=== PATIENT | female | born 1965 | race Caucasian/White ===

== ENCOUNTER 2017-09-14 08:59 | Outpatient (RCR) | payer MEDICAID, SELFPAY ==
--- NOTE | 2017-09-14 17:38 | HP.FCE ---
HP OT Functional Capacity Eval - Reference Duration Sedentary Sedentary Light Light Light Medium Medium Medium Heavy Very Heavy Heavy Occasional (0-33% of day) Frequent (34-66% of day) Constant (67-100% of day) 10 # Negligible Negligible 15 # 8 # Negligible 20 # 10# Negli. 35 # 18 # 7 # 50 # 25 # 10 # 75 # 100 # >100 # 38 # 50 # >50 # 15 # 20 # >20 # - Patient Information Height: 5 ft 2 in Weight:: 63.796 kg Hand Dominance: R handed - Medical History Medical History Including Restrictions: Lumbar Spinal Stenosis, Carpal tunnel bilateral hands with surgery bilateral hands (Summer 2016), DM II - Diagnoses Diagnoses: Lumbar Spinal Stenosis - Symptoms Symptoms: pain, numbness/tingling L leg and lower back - Pain Pain: pain lower back 8-02/28, whole Left side 03/30, R knee 01/28 - Work History Work History: [employer] 2013, [employer] 2017 for 6 months had to quite because of blackout spells. - ADLS ADLS: Independent with all BADL's, IADL's, occassionally will have 15 yr old son assist with transitioning laundry or opening containers. Lives in mobile home with 15 yr old son and [id number], 4 steps to enter no handrails. Ambulates no device independently. Tub/shower with no AE. Standard toilet seats. Laundry in house main level. Drives and able to run errands and get groceries on her own, has to use grocery cart for support to walk around store. Sleeps in regular bed. - Physical Examination ROM: BLE WFL, B UE WFL with limited ROM L digits, able to make composite fists bilateral hands, -10 degrees extension DIP L 5th digit and -5 degrees extension L hand digits 2, 3, 4 DIP. Strength: Generalized BUE strength 3+/5, B LE 3+/5 Right Clinical Engineering Director Strength Average: 56.66 Left Clinical Engineering Director Strength Average: 43.33 Right Lateral Pinch Average: 12.00 Left Lateral Pinch Average: 12.00 Right Tripod Pinch Average: 13.33 Left Tripod Pinch Average: 10.00 Comments: Increased L back pain when completing electrician wiring strength and pinch tests 9/10. 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 Sensation: Numbness/Tingling back and L side Fine Motor: Difficulty with buttoning, Limitied ability to open a variety of containers secondary to decreased strength and increased pain in bilateral hands Balance: Recent falls at home and has to hold onto grocery cart at store. Decreased balance and righting reactions to L side, front and back when tested. Recent falls, bedroom and once in bathroom, last week and 2 weeks ago. Pt unsteady when ambulating around facility for walk test, occassionally leaning into wall or using wall for support while walking. Does not have DME at home. - Non Material Handling Activities Bending: Able to bend down to floor 2 times with increased back and bilateral leg pain. Squatting: Able to complete 5 squats in a row increased bilateral knee pain. Had to stop secondary to knees felt like they were going to give out. Kneeling: Able to kneel one time. Reaching out/up: Able to reach out to L side and R side outside base of support without loss of balance and reach up without loss of balance. Walking: Able to walk for 4 minutes than required seated rest break secondary to pain lower back and bilateral legs 01/28. Pt unsteady when ambulating around facility for walk test, occassionally leaning into wall or using wall for support while walking. Pt stated sometimes feels like her legs are just going to give out. Standing: Able to stand for 4 minutes, limited with pain in back and bilateral legs. Sitting: Able to sit without getting up or discomfot for 26 minutes at a time in beginning of evaluation, did demonstrate increased pain in back after completing lift tests and walking test, when seated pt sat in front part of chair with no back support moving her body forward and side to side with deep breaths. Pt stated she has a really hard time getting comfortable due to pain. Climbing Stairs: Able to climb 10 steps, up/down using unilateral hand rail R side. Pt states when completing steps feels like her legs are going to give out. According to questionaire pt filled out, she stated she can drive or ride in a car for 1/2hr to 1 hr before she needs to get out and stretch. Pt stated she can walk at an event or mall for 1/2 hr before having to sit down. Pt stated she can sit for 15 to 20 minutes at a time sometimes less than that. Pt stated usually stand/walk 4 to 5 hrs a day. She does not lie or recline. She stated she has a hard time sleeping because she can never get comfortable with all her pain. - Dynamic Occasional Lifting Capacity Floor Lift: 1x with 20# max Knee Lift: 1x with 20# max Waist Lift: 1x with 20# max Shoulder Lift: 1x with 15# max Overhead Lift: unable to lift 15# box over her head. Carryinx 20# carrying, stated could not do more weight. Comments: Accordining to questionaire pt filled out, pt stated she exercises regularly but sometimes is unable to depending on how she feels.
== END 2017-09-14 19:00 | disposition home or self-care (01) ==
LOC: OT 08:59
PROVIDERS: Family Provider Family Medicine; PCP Family Medicine; Visit Provider Family Medicine
DX: M48.061 Spinal stenosis, lumbar region without neurogenic claudication (principal)
CPT/HCPCS: 97165

== ENCOUNTER 2017-10-23 22:28 | Emergency (ER) | payer MEDICAID, SELFPAY ==
[2017-10-23 22:28] VITALS: BP 136/63; PULSE 100; RESP 16; TEMP 35.7; BMI 27.0
--- NOTE | 2017-10-23 22:38 | ED.DCSUM_ITS ---
- ER Visit Summary Date of Service: 10/23/17 Chief Complaint: Laceration History of Present Illness: The patient is a 52 F presents to the emergency department laceration to left fourth finger. Patient was standing on a chair trying to close the garage door. She states that she stepped off and lost her balance. She fell forward and thinks that she got her finger incised on a picture frame. She did not strike her head. She denies loss of consciousness. She denies any pain. She states she was bleeding a decent amount of the reason that she came in. She is unsure of her last tetanus shot. She takes baby aspirin but no other anticoagulants. Physical Examination: Exam is relatively unremarkable. Patient is a 3 cm U- shaped laceration on the palmar aspect of the mid phalanges of the left fourth finger. There is minimal active bleeding. Flexor superficialis and flexor profundus are intact. Two-point discrimination is preserved. Cap refill is less than 2 seconds. There is no evidence of nailbed injury. Test Results: [] Emergency Department Course and Treatment: Patient's tetanus is updated. The wound was anesthetized locally. It was irrigated. There was no evidence of tendinous involvement in a bloodless field. Patient had the laceration repaired with simple interrupted suture. Bacitracin dressing was applied. The patient was counseled on wound care and reasons to return. She will follow-up in 10 days for suture removal or return with any increasing redness or drainage. Patient is comfortable with this plan of care. Treatment Plan: [] Disposition: Discharge Impression: 1. 3 cm finger laceration left fourth with primary closure This note was generated with [email or web address] dictation software. It may contain incorrect words, spelling, and punctuation that were not noted in review of the chart prior to signing ED Disposition - Plan for ED Patient: Chief Complaint: Laceration Instructions: ED Laceration Hand Referrals: Garrett Kaplan MD [Primary Care Provider] - 10 Day for suture removal
[2017-10-23] MEDS: Diphth,Pertuss(Acell),Tet Vac 0.5 ML Vial IM (23:02)
[2017-10-23 23:22] VITALS: BP 99/65; PULSE 84; O2SAT 94
== END 2017-10-23 23:23 | disposition home or self-care (01) ==
PROVIDERS: Emergency Provider Emergency Medicine; Family Provider Family Medicine; PCP Family Medicine
DX: S61.215A Laceration without foreign body of left ring finger without damage to nail, initial encounter (principal); W26.8XXA Contact with other sharp object(s), not elsewhere classified, initial encounter; Y93.9 Activity, unspecified; Y92.89 Other specified places as the place of occurrence of the external cause; Y99.9 Unspecified external cause status; E11.9 Type 2 diabetes mellitus without complications; I10 Essential (primary) hypertension; E78.00 Pure hypercholesterolemia, unspecified; Z72.0 Tobacco use
CPT/HCPCS: 12002; 90715; 99284

== ENCOUNTER 2018-05-27 17:48 | Observation (INO) | payer MEDICAID, SELFPAY ==
[2018-05-27] VITALS (8 sets, daily range): BP systolic 86–106; BP diastolic 58–67; PULSE 64–73; RESP 14–20; TEMP 36.5; O2SAT 94–97; BMI 28.6; BMI 25.9
--- NOTE | 2018-05-27 17:57 | ED.RN ---
BLOOD GLUCOSE 191 IN ER
[2018-05-27 18:01] LABS: Bedside Glucose 191 mg/dL (70-110)
--- NOTE | 2018-05-27 18:11 | CT_ITS ---
STUDY: CT BRAIN WITHOUT CONTRAST REASON FOR EXAM: Female, 53 years old. Dizziness RADIATION DOSAGE (If Supplied By Facility): CTDIvol = ( 44.99 ) mGy, DLP = ( 745.49 ) mGycm TECHNIQUE: Transaxial CT imaging of the brain was performed without administration of intravenous contrast material. Individualized dose optimization techniques were used for this CT. COMPARISON: None. FINDINGS: Normal soft tissue structures. Normal calvarium. Normal size ventricles and extra-axial spaces for the patient's age. There are areas of decreased attenuation within the white matter tracts of the supratentorial brain, consistent with microvascular disease changes. There is a tiny old lacunar infarct of the right basal ganglia. Normal brainstem. Normal cerebellum. There is no intracranial hemorrhage. There are no findings of an acute ischemic infarction. There is mucosal thickening of several left ethmoidal air cells. CT/Brain/Head without Contrast IMPRESSION: Mild chronic left ethmoid sinusitis. Chronic involutional changes. Tiny old lacunar infarct of the right basal ganglia. There is no intracranial hemorrhage or evidence of acute infarct. Electronically Signed: Ben Harrell MD at 19:01 EST , Service support ,
--- NOTE | 2018-05-27 18:11 | EKG12_ITS ---
Test Reason : SYNCOPE Blood Pressure : / mmHG Vent. Rate : 061 BPM Atrial Rate : 061 BPM P-R Int : 168 ms QRS Dur : 068 ms QT Int : 442 ms P-R-T Axes : 046 069 066 degrees QTc Int : 444 ms Normal sinus rhythm ST & T wave abnormality, consider anterior ischemia Abnormal ECG Confirmed by MARLON CORREA, SHEELA ([id number]), editor school photograph LEE MEDINA ([id number]) on 05/30/2018 2:03:46 PM Referred By: SJ Confirmed By:SHEELA MASON MD
--- NOTE | 2018-05-27 18:16 | ED.VISSUMM ---
- ER Visit Summary Date of Service: 05/27/18 Chief Complaint: Unresponsive episode History of Present Illness: The patient is a 53 F presenting after unresponsive episode. Patient states that she was not feeling well. She had a sensation of head spinning. She put her head down. Family then states she became unresponsive. She did not fall or have any trauma. She denies chest pain or shortness of breath. When she regained consciousness she states she continued to have head spinning and had an episode of vomiting. She denies headache. She feels back to baseline currently. Family states that she became rigid and stopped breathing during this episode. No history of seizures. Physical Examination: Vitals are stable. Blood pressure 93/60. Patient is afebrile. Alert no acute distress. HEENT exam is unremarkable. Neck is supple. No meningismus Lungs are clear and equal bilaterally. Heart is regular rate and rhythm. Abdomen is soft nontender nondistended. Extremities are unremarkable. Skin is warm and dry. No focal neurologic deficit. NIH 0 Remainder of exam is unremarkable. Emergency Department Course and Treatment: She was given IV fluids, Zofran. CBC unremarkable. Chemistries show glucose 200, creatinine 1.55. Troponin is negative. CT head shows mild chronic left ethmoid sinusitis. Chronic involutional changes. Tiny old lacunar infarct of the right basal ganglia. There is no intracranial hemorrhage or evidence of acute infarct. Chest x-ray shows no acute process. Urinalysis shows 25-50 white blood cells, positive nitrites. Urine culture was sent. She was given Rocephin IV. Discussed with hospitalist for admission. Disposition: Admission Impression: UTI, KYREE, syncope versus seizure This note was generated with [employer] dictation software. It may contain incorrect words, spelling, and punctuation that were not noted in review of the chart prior to signing ED Disposition - Plan for ED Patient: Chief Complaint: Syncope Referrals: Garrett Kaplan MD [Primary Care Provider] -
[2018-05-27] MEDS: Ondansetron 4 MG/2 ML Vial IV (18:26)
[2018-05-27 18:40] LABS: Anion Gap 6 (5-15); BUN 16 mg/dL (7-18); BUN/Creat Ratio 10.3 RATIO (10-20); Calcium,Total 8.4 mg/dL (8.5-10.1); Chloride 102 mmol/L (98-107); Creatinine, Serum 1.55 mg/dL (0.55-1.02); EST Glomerular Filtration Rate 37 mL/min (>60); Est Glom Filt Rate - Afr Amer 45 mL/min (>60); Glucose 200 mg/dL (74-106); Potassium 3.8 mmol/L (3.5-5.1); Sodium Level 136 mmol/L (136-145)
--- NOTE | 2018-05-27 18:40 | RAD_ITS ---
STUDY: X-RAY CHEST REASON FOR EXAM: Female, 53 years old. Altered mental status TECHNIQUE: Single AP portable view of the chest. COMPARISON: Previous study of 09/29/2012 FINDINGS: rotary soil stabilizer leads are present. The lungs are clear and expanded. There is no demonstrated pleural abnormality. Normal size heart. Normal mediastinum and howard. Normal visualized pulmonary arteries. Normal visualized aortic arch and descending thoracic aorta. Normal visualized thoracic spine. Normal visualized ribs, clavicles, and shoulders. There is no demonstrated abnormality of the visualized soft tissue structures of the upper abdomen. RAD/Chest 1 View (Portable) IMPRESSION: Normal x-ray examination of the chest. Electronically Signed: Ben Harrell MD at 19:11 EST , Service support ,
[2018-05-27 18:44] LABS: Absolute Lymphocyte Count 2.08 X10^3/ul (0.83-4.51); Absolute Neutrophil Count 6.4 X10^3/uL (2.0-7.7); Basophil# 0.04 X10^3/uL; Basophil% 0.4 % (0-1); Eosinophil# 0.13 X10^3/uL; Eosinophils% 1.4 % (0-5); Hemoglobin 11.7 g/dl (12.0-15.0); Lymphocyte # 2.08 X10^3/ul (4.0); Lymphocyte % 22.2 % (19-41); Mean Corp Hgb Conc 33.4 g/gl (32-36); Mean Corpuscular Hgb 29.3 pg (27.0-32.0); Mean Corpuscular Volume 87.5 fL (81-99); Mean Platelet Vol. 9.5 fl (6.2-12.0); Monocyte# 0.61 X10^3/uL; Monocyte% 6.5 % (0-10); Neutrophil # 6.43 X10^3/uL (2.7-7.7); Neutrophil % 68.8 % (47-70); Platelet Count 228 K/mm3 (150-450); RBC Distribution Width CV 13.6 % (11.6-14.6); RBC Distribution Width SD 43.4 fl (35.1-43.9); White Blood Count 9.4 K/mm3 (4.4-11.0)
[2018-05-27 18:59] LABS: POSITIVE COUNT NO; POSITIVE DIFFERENTIAL NO; POSITIVE MORPHOLOGY NO
[2018-05-27 20:01] LABS: Mucous, Urine 0 SEEN /hpf (<or=2+)
[2018-05-27 20:08] LABS: Color, Urine Yellow (Yellow); Glucose, Dipstick 50 mg/dl (Normal); Ketone-Dipstick Negative (Negative); Leukocyte Esterase-Dipstick 500 /ul (Negative); Nitrite-Dipstick Positive (Negative); Occult Blood-Urine 50 /ul (Negative); Protein-Dipstick 30 mg/dl (Negative); Urine Bilirubin Dipstick Negative (Negative); Urine Clarity Cloudy (Clear); Urine Urobilinogen Normal (Normal)
[2018-05-27] MEDS: 0.9% Normal Saline 1,000 ML 999 ML IV (20:11)
[2018-05-27 20:14] LABS: Bacteria 2+ /hpf (None Seen); Red Blood Cells-Urine 0-5 SEEN /hpf (0-5); Squamous Epithelial Cells - UA 0-5 SEEN /hpf (5-10); White Blood Cells 25-50 SEEN /hpf (0-5)
--- NOTE | 2018-05-27 20:48 | HP.PCM_ITS ---
Problem List (1) UTI (urinary tract infection) Status: Acute (2) Hypertension Status: Chronic (3) Diabetes Status: Chronic (4) Depression Status: Chronic (5) HLD (hyperlipidemia) Status: Chronic (6) Low back pain Status: Chronic (7) Anxiety Status: Chronic (8) CAD (coronary artery disease), [place] coronary artery Status: Chronic (9) Syncope Status: Acute History of Present Illness Date of Admission: 05/27/18 Chief Complaint: Syncope The patient is a 53 year old F with a PMH as below presenting after feeling dizzy at home and family states she went rigid and unresponsive, of note she does have intermittent dizziness at home and takes meclizine for it. They laid her on the floor and she recovered fairly quickly. She states that she was not shaking, did not feel tired after waking up, did not have incontinence of urine or stool during the episode. She does not have a history of seizures. She has been on her dose of 450 mg of Wellbutrin for a while now and there was no recent increase in dose. In the ER she was found to have an elevated creatinine at 1.55, as well as a urinary tract infection. She denies any feelings of burning on urination or back pain, but she does have a slight increase in frequency over the last few days. Past Medical History Past Medical History (Chronic Problems): Chronic Problems Hypertension (Chronic) Diabetes (Chronic) Depression (Chronic) HLD (hyperlipidemia) (Chronic) Low back pain (Chronic) Anxiety (Chronic) CAD (coronary artery disease), [place] coronary artery (Chronic) Allergies No Known Allergies Allergy (Verified 01/01/17 17:16) Home Medications: Ambulatory Orders Medication Instructions Recorded Meclizine HCl [Antivert] 25 mg PO TID PRN PRN 11/16/13 Aspirin E.C. [Ecotrin] 81 mg PO DAILY@0800 05/27/18 Atenolol [Tenormin (Beta Zoila)] 50 mg PO DAILY 05/27/18 Atorvastatin Calcium [Lipitor] 80 mg PO QHS 05/27/18 Baclofen [Lioresal] 10 mg PO BID 05/27/18 Fenofibrate [Tricor] 48 mg PO DAILY 05/27/18 Gabapentin [Neurontin] 400 mg PO TID 05/27/18 Glimepiride [Amaryl] 2 mg PO DAILY 05/27/18 Isosorbide Mononitrate [Imdur] 120 mg PO DAILY 05/27/18 Lisinopril [Zestril] 2.5 mg PO DAILY 05/27/18 Meloxicam 15 mg PO QHS 05/27/18 Metformin HCl [Glucophage] 1,000 mg PO BIDCM 05/27/18 Nesina 25 mg PO DAILY 05/27/18 Nitroglycerin [Nitrostat] 0.4 mg PO PRN PRN 05/27/18 buPROPion SR [Wellbutrin SR (150mg 150 mg PO QHS 05/27/18 tablets)] buPROPion SR [Wellbutrin SR (150mg 300 mg PO DAILY 05/27/18 tablets)] Surgical History: - - section, Carpal tunnel release Psychiatric History: Anxiety, Depression Lives: Spouse/ Significant Other Smoking Status: Current every day smoker Alcohol: None Drugs: None - *Family History Maternal History Items: Diabetes, Heart Disease Paternal History Items: Cancer, COPD, Renal Disease Review of Systems Constitutional: Denies: Chills, Fever, Weight Change HEENT: Denies: Head Aches, Sinus Congestion, Sinus Drainage Cardiovascular: Reports: Syncope. Denies: Chest Pain, Palpitations Respiratory: Denies: Cough, Shortness of breath at rest, Sputum production Gastrointestinal: Denies: Abdominal Pain, Nausea, Vomiting Genitourinary: Reports: Frequency. Denies: Dysuria Musculoskeletal: Denies: Joint Pain, Joint Tenderness Skin: Denies: Rash, Wounds Neurological: Denies: Numbness, Tingling, Focal weakness Psychiatric: Denies: Anxiety, Depression Hematologic/ Lymphatic: Denies: Easy Bruising, Easy Bleeding VTE Information - Inpt Only VTE Present on Admission: No Patient Problems: Active and Suspected Problems UTI (urinary tract infection) (Acute) Syncope (Acute) - Physical Exam General: Alert, Oriented x3, Cooperative, No apparent distress HEENT: Atraumatic, PERRLA, EOMI, Normocephalic Oral: Dry Mucosa Neck: Supple, No JVD Lungs: Clear to auscultation, Normal air movement, No rhonchi, No wheeze, No rales Cardiovascular: Regular rate, Regular Rhythm, Normal S1, Normal S2, No murmurs Abdomen: Soft, Non Tender, Non-Distended, No Hepato-splenomegaly Extremities: No edema, Capillary Refill Less than 3 Seconds Skin: No rashes, No breakdown Neurological: Neuro grossly intact, Sensory exam intact to light touch and pain Psych/Mental Status: Normal Affect, Appropriate Vital Signs Temp Pulse Resp BP Pulse Ox 97.7 F L 64 17 93/59 L 95 05/27/18 17:52 05/27/18 18:31 05/27/18 18:30 05/27/18 18:31 05/27/18 18:30 Oxygen Delivery Method Room Air Weight: 156 lb 8.451 oz Body Mass Index (BMI) 28.6 Finger Stick Blood Glucose 191 Laboratory Tests Past 24 Hrs 05/27/18 05/27/18 05/27/18 18:00 18:00 19:56 WBC 9.4 RBC 4.00 L Hgb 11.7 L Hct 35.0 L MCV 87.5 MCH 29.3 MCHC 33.4 RDW 13.6 RDW Differential 43.4 Plt Count 228 MPV 9.5 Immature Gran % (Auto) 0.700 Neut % (Auto) 68.8 Lymph % (Auto) 22.2 [place] % (Auto) 6.5 Eos % (Auto) 1.4 Baso % (Auto) 0.4 Absolute Neuts (auto) 6.4 Absolute Lymphs (auto) 2.08 Total Counted Not Reportable Sodium 136 Potassium 3.8 Chloride 102 Carbon Dioxide 28.0 Anion Gap 6 BUN 16 Creatinine 1.55 H Estim Creat Clear Calc 33.20 Est GFR (MDRD) Af Amer 45 L Est GFR (MDRD) Non-Af 37 L BUN/Creatinine Ratio 10.3 Glucose 200 H Calcium 8.4 L Troponin I < 0.015 Urine Color Yellow Urine Clarity Cloudy Urine pH 5.0 Ur Specific [place] 1.020 Urine Protein 30 H Urine Glucose (UA) 50 H Urine Ketones Negative Urine Occult Blood 50 H Urine Nitrite Positive H Urine Bilirubin Negative Urine Urobilinogen Normal Ur Leukocyte Esterase 500 H Urine RBC 0-5 SEEN Urine WBC 25-50 SEEN Ur Squamous Epith Cells 0-5 SEEN Urine Bacteria 2+ Urine Mucus 0 SEEN POC Glucose 05/27/18 17:56 POC Glucose 191 H Assessment/Plan All Active Problems UTI (urinary tract infection) (Acute) Syncope (Acute) 1. UTI/Syncope/KYREE - orthostatics in the ER were normal - She is slightly hypotensive but her MAPs are in the 70 - IVF@125 - Ancef 2 gm TID - Urine culture pending - There was some concern with the family about seizure and she is on a large dose of wellbutrin 2. Anxiety/Depression - stable - on wellbutrin 450 mg Daily - Will decrease her to 300 mg and Start zoloft 50 mg 3. HTN/HLD/CAD - BP is slightly hypotnesive, will hold BP meds tonight - c/w ASA, lipitor and fenofibrate 4. Back pain - ok to c/w baclofen and gabapentin - will monitor renal function 5. DM2 - stable - Hold metformin and glimepiride - Start SSI - BG 200 DVT: Heparin/SCDs Code Visit Inpatient E&M: 55672 Init Hosp L3
[2018-05-27] MEDS: Ceftriaxone 1 GM/50 ML BAG IV (21:06)
[2018-05-27 22:55] LABS: Bedside Glucose 184 mg/dL (70-110)
[2018-05-27] MEDS: 0.9% NaCl Peripheral Flush Adult/Peds IV (23:08)
[2018-05-27] MEDS: 0.9% Normal Saline 1,000 ML 125 ML IV (23:08)
[2018-05-27] MEDS: Insulin Lispro 100 UNIT/ML INSULN.PEN SQ (23:08)
[2018-05-27] MEDS: Heparin Injection (Vial) 5,000 UNIT/ML VIAL 5000 UNIT SC (23:09)
[2018-05-28] VITALS (13 sets, daily range): BP systolic 106–131; BP diastolic 69–81; PULSE 71–91; RESP 16–20; TEMP 36.6–36.8; O2SAT 95–97
[2018-05-28] MEDS: Cefazolin 2 GM in 0.9% Normal Saline 100 ML IV ×3 (06:57→22:28)
[2018-05-28] MEDS: 0.9% Normal Saline 1,000 ML 125 ML IV ×2 (06:57→18:34)
[2018-05-28] MEDS: Gabapentin 400 MG Capsule PO ×3 (06:57→22:28)
[2018-05-28 07:11] LABS: Bedside Glucose 179 mg/dL (70-110)
--- NOTE | 2018-05-28 07:14 | MRI_ITS ---
STUDY: MRI BRAIN WITHOUT CONTRAST REASON FOR EXAM: Female, 53 years old. Confusion with acute syncope and seizure TECHNIQUE: Standardized multiplanar fat and water weighted pulse sequences were obtained. COMPARISON: CT 05/27/2018 FINDINGS: Normal size of the ventricles and extra-axial spaces for the patient's age. Normal white matter tracts of the supratentorial brain. Normal bilateral basal ganglia. Normal thalami. There is no extra-axial fluid accumulation. Normal flow voids within the major intracranial circulation suggesting patency by spin echo criteria. Normal sella turcica, pituitary gland, infundibular stalk, optic chiasm and hypothalamus. Normal tectal plate and pineal gland. Normal midbrain, nghia and medulla. Normal cerebellum. Normal basal cisterns. Normal bilateral temporal bones. Normal bilateral internal auditory canals. No demonstrated orbital abnormality, within the constraints of a routine brain study. Normal visualized paranasal sinuses. Normal calvarium and skull base. Normal visualized soft tissue structures. Normal visualized upper cervical spine. MRI/Brain without Contrast IMPRESSION: No evidence of infarct or hemorrhage. Electronically Signed: Garrett Nielson MD at 10:12 EST Tel , Service support ,
[2018-05-28 07:47] LABS: Anion Gap 7 (5-15); BUN 14 mg/dL (7-18); BUN/Creat Ratio 11.1 RATIO (10-20); Calcium,Total 8.1 mg/dL (8.5-10.1); Chloride 109 mmol/L (98-107); Creatinine, Serum 1.26 mg/dL (0.55-1.02); EST Glomerular Filtration Rate 47 mL/min (>60); Est Glom Filt Rate - Afr Amer 57 mL/min (>60); Estimated Creatinine Clearance 40.84 ml/min; Glucose 175 mg/dL (74-106); Potassium 3.9 mmol/L (3.5-5.1); Sodium Level 141 mmol/L (136-145)
[2018-05-28 08:07] LABS: Magnesium 1.8 mg/dL (1.6-2.6); Thyroid Stim Hormone (TSH) 1.44 uIU/mL (0.358-3.74)
[2018-05-28] MEDS: Ipratropium/Albuterol Sulfate 3 ML AMPUL.NEB INHALATION ×3 (08:29→19:33)
[2018-05-28] MEDS: Insulin Lispro 100 UNIT/ML INSULN.PEN SQ ×4 (08:56→22:34)
[2018-05-28] MEDS: Aspirin E.C. 81 MG Tablet PO (08:58)
[2018-05-28] MEDS: Heparin Injection (Vial) 5,000 UNIT/ML VIAL 5000 UNIT SC ×2 (08:58→22:28)
[2018-05-28] MEDS: Fenofibrate 48 MG Tablet PO (08:59)
[2018-05-28] MEDS: Baclofen 10 MG Tablet PO ×2 (08:59→22:28)
[2018-05-28] MEDS: buPROPion (SR) 150 MG Tablet.SA 300 MG PO (09:00)
[2018-05-28] MEDS: Sertraline 50 MG Tablet PO (09:00)
[2018-05-28] MEDS: guaiFENesin 1,200 MG Tablet 1200 MG PO ×2 (10:21→22:28)
--- NOTE | 2018-05-28 10:35 | PCM.PROGNOTE ---
Patient Problems: Active and Suspected Problems UTI (urinary tract infection) (Acute) Syncope (Acute) Subjective: Patient seen and examined. Denies current complaints. Denies urinary symptoms, fever, chills. Denies dizziness, lightheadedness. - Physical Exam General: Alert, Oriented x3, Cooperative HEENT: Atraumatic, PERRLA, EOMI, Normocephalic Neck: Supple, No JVD, Negative Carotid Bruits Lungs: Clear to auscultation, Normal air movement Cardiovascular: Regular rate, Regular Rhythm, Normal S1, Normal S2, No murmurs Abdomen: Bowel Sounds Present, Soft, Non Tender, Non-Distended Extremities: No clubbing, No cyanosis, No edema, Capillary Refill Less than 3 Seconds Skin: No rashes, No breakdown Musculoskeletal: No Tenderness to Palpation of Joints or Extremities Neurological: Cranial nerves II-XII grossly intact, Neuro grossly intact Psych/Mental Status: Normal Affect, Appropriate Vital Signs Temp Pulse Resp BP Pulse Ox 97.9 F 71 18 106/71 97 05/28/18 10:29 05/28/18 10:29 05/28/18 10:29 05/28/18 10:29 05/28/18 10:29 Oxygen Delivery Method Room Air Weight: 141 lb 8.588 oz Body Mass Index (BMI) 25.9 Finger Stick Blood Glucose 191 Intake and Output for Last 24 Hours 05/26/18 05/27/18 05/28/18 23:59 23:59 23:59 Intake Total 1361 / 1361 Balance 1361 / 1361 Laboratory Tests Past 24 Hrs 05/27/18 05/27/18 05/27/18 18:00 18:00 19:56 WBC 9.4 RBC 4.00 L Hgb 11.7 L Hct 35.0 L MCV 87.5 MCH 29.3 MCHC 33.4 RDW 13.6 RDW Differential 43.4 Plt Count 228 MPV 9.5 Immature Gran % (Auto) 0.700 Neut % (Auto) 68.8 Lymph % (Auto) 22.2 Grand % (Auto) 6.5 Eos % (Auto) 1.4 Baso % (Auto) 0.4 Absolute Neuts (auto) 6.4 Absolute Lymphs (auto) 2.08 Total Counted Not Reportable Sodium 136 Potassium 3.8 Chloride 102 Carbon Dioxide 28.0 Anion Gap 6 BUN 16 Creatinine 1.55 H Estim Creat Clear Calc 33.20 Est GFR (MDRD) Af Amer 45 L Est GFR (MDRD) Non-Af 37 L BUN/Creatinine Ratio 10.3 Glucose 200 H Calcium 8.4 L Magnesium Troponin I < 0.015 TSH Urine Color Yellow Urine Clarity Cloudy Urine pH 5.0 Ur Specific [place] 1.020 Urine Protein 30 H Urine Glucose (UA) 50 H Urine Ketones Negative Urine Occult Blood 50 H Urine Nitrite Positive H Urine Bilirubin Negative Urine Urobilinogen Normal Ur Leukocyte Esterase 500 H Urine RBC 0-5 SEEN Urine WBC 25-50 SEEN Ur Squamous Epith Cells 0-5 SEEN Urine Bacteria 2+ Urine Mucus 0 SEEN 05/28/18 05/28/18 05:57 05:57 WBC RBC Hgb Hct MCV MCH MCHC RDW RDW Differential Plt Count MPV Immature Gran % (Auto) Neut % (Auto) Lymph % (Auto) Grand % (Auto) Eos % (Auto) Baso % (Auto) Absolute Neuts (auto) Absolute Lymphs (auto) Total Counted Sodium 141 Potassium 3.9 Chloride 109 H Carbon Dioxide 25.0 Anion Gap 7 BUN 14 Creatinine 1.26 H Estim Creat Clear Calc 40.84 Est GFR (MDRD) Af Amer 57 L Est GFR (MDRD) Non-Af 47 L BUN/Creatinine Ratio 11.1 Glucose 175 H Calcium 8.1 L Magnesium 1.8 Troponin I TSH 1.44 Urine Color Urine Clarity Urine pH Ur Specific [place] Urine Protein Urine Glucose (UA) Urine Ketones Urine Occult Blood Urine Nitrite Urine Bilirubin Urine Urobilinogen Ur Leukocyte Esterase Urine RBC Urine WBC Ur Squamous Epith Cells Urine Bacteria Urine Mucus POC Glucose 05/28/18 05/27/18 05/27/18 07:02 22:48 17:56 POC Glucose 179 H 184 H 191 H Medical Necessity - Tobacco Use Smoking Status: Current every day smoker Assessment/Plan All Active Problems UTI (urinary tract infection) (Acute) Syncope (Acute) 1. Acute UTI- UA +. Cx pending. Continue IV cefazolin. 2. Syncope vs possible seizure- Unclear etiology. MRI brain normal. EEG ordered. Neuro consulted. Obtain echo. Orthostatic vitals negative. Troponin negative. TSH within normal limits. 3. Mild upper respiratory symptoms- possible viral URI. Respiratory panel pending. 4. Chronic kidney disease stage III, KYREE ruled out-baseline creatinine 1.2-1.4. Trend BMP. 5. CAD-continue aspirin, statin, beta farida, imdur. 6. Hypertension-stable, continue home atenolol, isosorbide, lisinopril. 7. Hyperlipidemia- continue statin, fenofibrate. 8. Type 2 diabetes mellitus-home oral regimen on hold. Accu-Cheks before meals at bedtime with sliding scale insulin. Check hemoglobin A1c. 9. Anxiety/depression-home Wellbutrin decreased to 300 mg daily. Started on Zoloft 50 mg daily. 10. Chronic back pain-continue baclofen, gabapentin. DVT prophylaxis-heparin subcu. This patient was seen by MERYL Perrin under the supervision of Dr. Morales.
[2018-05-28 11:25] LABS: Bedside Glucose 188 mg/dL (70-110)
[2018-05-28 12:03] LABS: Hemoglobin A1c 7.1 % (4.2-6.3)
--- NOTE | 2018-05-28 15:53 | CM.UR ---
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 Met face to face with patient and her . Denies any needs and not anticipating any. Instructed that if they determine she did have seizure and send home on anti-seizure medication--she is not allowed to drive x 6 months. Verb understanding. Lizzeth Murphy RN, [facility].
[2018-05-28 16:21] LABS: Bedside Glucose 237 mg/dL (70-110)
[2018-05-28] MEDS: Meloxicam 15 MG Tablet PO (22:28)
[2018-05-28] MEDS: Atorvastatin Calcium 80 MG Tablet PO (22:28)
[2018-05-28 22:40] LABS: Bedside Glucose 153 mg/dL (70-110)
[2018-05-29 03:21] VITALS: PULSE 82
[2018-05-29] MEDS: 0.9% Normal Saline 1,000 ML 125 ML IV (03:57)
[2018-05-29 04:10] VITALS: BP 145/84; PULSE 82; RESP 18; TEMP 36.8; O2SAT 96
[2018-05-29] MEDS: Cefazolin 2 GM in 0.9% Normal Saline 100 ML IV (05:06)
[2018-05-29] MEDS: Gabapentin 400 MG Capsule PO (05:06)
[2018-05-29 06:27] LABS: Anion Gap 6 (5-15); BUN 11 mg/dL (7-18); Calcium,Total 8.2 mg/dL (8.5-10.1); Chloride 112 mmol/L (98-107); EST Glomerular Filtration Rate 62 mL/min (>60); Est Glom Filt Rate - Afr Amer 75 mL/min (>60); Estimated Creatinine Clearance 51.46 ml/min; Glucose 114 mg/dL (74-106); Potassium 3.9 mmol/L (3.5-5.1); Sodium Level 143 mmol/L (136-145)
[2018-05-29 06:51] LABS: Bedside Glucose 131 mg/dL (70-110)
[2018-05-29 06:59] VITALS: PULSE 81
[2018-05-29 07:15] VITALS: PULSE 82; RESP 16
[2018-05-29] MEDS: Ipratropium/Albuterol Sulfate 3 ML AMPUL.NEB INHALATION (07:15)
--- NOTE | 2018-05-29 08:45 | PCM.CONS.GEN ---
Reason for Consult Date of Consultation: 05/29/18 Reason for Consultation: syncope v sz History of Present Illness: 53 yo right handed white female presented after a spell described as light headed upon standing, lost consciousness, stiffned and vomited, no shaking, no tongue biting or incontinence, now normal. now diagnosed with uti. 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 had been on wellbutrin 450mg/d for yrs. denies cough. +tob, no etoh. per admit h&p:The patient is a 53 year old F with a PMH as below presenting after feeling dizzy at home and family states she went rigid and unresponsive, of note she does have intermittent dizziness at home and takes meclizine for it. They laid her on the floor and she recovered fairly quickly. She states that she was not shaking, did not feel tired after waking up, did not have incontinence of urine or stool during the episode. She does not have a history of seizures. She has been on her dose of 450 mg of Wellbutrin for a while now and there was no recent increase in dose. In the ER she was found to have an elevated creatinine at 1.55, as well as a urinary tract infection. She denies any feelings of burning on urination or back pain, but she does have a slight increase in frequency over the last few days. Past Medical History Past Medical History (Chronic Problems): Chronic Problems Hypertension (Chronic) Diabetes (Chronic) Depression (Chronic) HLD (hyperlipidemia) (Chronic) Low back pain (Chronic) Anxiety (Chronic) CAD (coronary artery disease), [place] coronary artery (Chronic) Allergies bee venom protein (honey bee) Allergy (Mild, Verified 05/27/18 22:34) Swelling Home Medications: Ambulatory Orders Medication Instructions Recorded Meclizine HCl [Antivert] 25 mg PO TID PRN PRN 11/16/13 Aspirin E.C. [Ecotrin] 81 mg PO DAILY@0800 05/27/18 Atenolol [Tenormin (beta zoila)] 50 mg PO DAILY 05/27/18 Atorvastatin Calcium [Lipitor] 80 mg PO QHS 05/27/18 Baclofen [Lioresal] 10 mg PO BID 05/27/18 Fenofibrate [Tricor] 48 mg PO DAILY 05/27/18 Gabapentin [Neurontin] 400 mg PO TID 05/27/18 Glimepiride [Amaryl] 2 mg PO DAILY 05/27/18 Isosorbide Mononitrate [Imdur] 120 mg PO DAILY 05/27/18 Lisinopril [Zestril] 2.5 mg PO DAILY 05/27/18 Meloxicam 15 mg PO QHS 05/27/18 Metformin HCl [Glucophage] 1,000 mg PO BIDCM 05/27/18 Nesina 25 mg PO DAILY 05/27/18 Nitroglycerin [Nitrostat] 0.4 mg PO PRN PRN 05/27/18 buPROPion SR [Wellbutrin SR (150mg 300 mg PO DAILY 05/27/18 tablets)] Cephalexin [Keflex] 500 mg PO Q6 #20 cap 05/29/18 Sertraline HCl [Zoloft] 50 mg PO DAILY #30 tab 05/29/18 Surgical History: - - section, Carpal tunnel release Psychiatric History: Anxiety, Depression Lives: Spouse/ Significant Other Smoking Status: Current every day smoker Alcohol: None Drugs: None - *Family History Maternal History Items: Diabetes, Heart Disease Paternal History Items: Cancer, COPD, Renal Disease Review of Systems Constitutional: Denies: Chills, Fever, Night Sweats Eyes: Denies: Blurred vision, Double vision HEENT: Denies: Difficulty Hearing, Difficulty Swallowing, Hard of Hearing, Head Aches Cardiovascular: Reports: Syncope. Denies: Chest Pain Respiratory: Denies: Cough, Shortness of Breath Gastrointestinal: Reports: Vomiting. Denies: Abdominal Pain, Constipation, Diarrhea, Dyspepsia, Nausea Genitourinary: Denies: Dysuria Musculoskeletal: Denies: Joint Pain Neurological: Denies: Balance problems, Blurred vision, Double vision, Change in Speech, Slurred speech, Confusion, Difficulty swallowing, Focal weakness, Headaches, Incoordination, Numbness, Tingling, Tremor, Seizures Psychiatric: Reports: Anxiety, Depression - Physical Exam General: Alert, Oriented x3, Cooperative, No apparent distress HEENT: Atraumatic, PERRLA, EOMI, Normocephalic Cardiovascular: Regular rate Neurological: Cranial nerves II-XII grossly intact, Deep Tendon Reflexes 2+/4 and Symmetrical, Neuro grossly intact, Motor Exam 5/5 strength throughout, Muscle tone normal, Sensory exam intact to light touch and pain, Coordination normal Psych/Mental Status: Normal Affect, Alert and oriented to time, place, person, mood and affect Vital Signs Temp Pulse Resp BP Pulse Ox 36.8 C 82 16 145/84 H 96 05/29/18 04:10 05/29/18 07:15 05/29/18 07:15 05/29/18 04:10 05/29/18 04:10 Oxygen Delivery Method Room Air Weight: 64.2 kg Body Mass Index (BMI) 25.9 Finger Stick Blood Glucose 191 Intake and Output for Last 24 Hours 05/27/18 05/28/18 05/29/18 23:59 23:59 23:59 Intake Total 4026 / 4026 1322 / 1322 Balance 4026 / 4026 1322 / 1322 Microbiology Past 72 Hours 05/27/18 19:56 Urine Culture - Final Urine, Clean Catch Presumptive E. coli 05/28/18 08:25 Respiratory Panel (PCR) - Final Mucosa - Nasopharyngeal Laboratory Tests Past 24 Hrs 05/27/18 05/29/18 Unknown 05:40 Sodium 143 Potassium 3.9 Chloride 112 H Carbon Dioxide 25.0 Anion Gap 6 BUN 11 Creatinine 1.00 Estim Creat Clear Calc 51.46 Est GFR (MDRD) Af Amer 75 Est GFR (MDRD) Non-Af 62 BUN/Creatinine Ratio 11.0 Glucose 114 H Hemoglobin A1c 7.1 H Calcium 8.2 L POC Glucose 05/29/18 05/28/18 05/28/18 06:45 22:33 16:12 POC Glucose 131 H 153 H 237 H 05/28/18 11:18 POC Glucose 188 H MRI reviewed, normal Current Home Med List Medication Instructions Recorded Confirmed Type Meclizine HCl [Antivert] 25 mg PO TID PRN PRN 11/16/13 05/27/18 History Aspirin E.C. [Ecotrin] 81 mg PO DAILY@0800 05/27/18 05/27/18 History Atenolol [Tenormin (Beta Zoila)] 50 mg PO DAILY 05/27/18 05/27/18 History Atorvastatin Calcium [Lipitor] 80 mg PO QHS 05/27/18 05/27/18 History Baclofen [Lioresal] 10 mg PO BID 05/27/18 05/27/18 History Fenofibrate [Tricor] 48 mg PO DAILY 05/27/18 05/27/18 History Gabapentin [Neurontin] 400 mg PO TID 05/27/18 05/27/18 History Glimepiride [Amaryl] 2 mg PO DAILY 05/27/18 05/27/18 History Isosorbide Mononitrate [Imdur] 120 mg PO DAILY 05/27/18 05/27/18 History Lisinopril [Zestril] 2.5 mg PO DAILY 05/27/18 05/27/18 History Meloxicam 15 mg PO QHS 05/27/18 05/27/18 History Metformin HCl [Glucophage] 1,000 mg PO BIDCM 05/27/18 05/27/18 History Nesina 25 mg PO DAILY 05/27/18 05/27/18 History Nitroglycerin [Nitrostat] 0.4 mg PO PRN PRN 05/27/18 05/27/18 History buPROPion SR [Wellbutrin SR (150mg 150 mg PO QHS 05/27/18 05/27/18 History tablets)] buPROPion SR [Wellbutrin SR (150mg 300 mg PO DAILY 05/27/18 05/27/18 History tablets)] Current Medications Generic Name Dose Route Start Last Admin Trade Name Freq PRN Reason Stop Dose Admin Albuterol Sulfate 2.5 mg 05/28/18 08:08 Ventolin Aerosols INHALATION Q2H PRN PRN dyspnea, wheezing Albuterol/Ipratropium 3 ml 05/28/18 08:15 05/29/18 07:15 Duoneb INHALATION 3 ml Q6HWA.RT ALBAN Administration Aspirin 81 mg 05/28/18 08:00 05/28/18 08:58 Ecotrin PO 81 mg DAILY@0800 ALBAN Administration Atenolol 50 mg 05/29/18 10:00 Tenormin (Beta Zoila) PO DAILY ALBAN Atorvastatin Calcium 80 mg 05/28/18 22:00 05/28/18 22:28 Lipitor PO 80 mg QHS ALBAN Administration Baclofen 10 mg 05/28/18 10:00 05/28/18 22:28 Lioresal PO 10 mg BID ALBAN Administration Bupropion HCl 300 mg 05/28/18 10:00 05/28/18 09:00 Wellbutrin Sr (150mg Tablets) PO 300 mg DAILY ALBAN Administration Dextrose 0 gm 05/27/18 22:26 D50w Syringe IV X1 PRN Hypoglycemia Protocol Fenofibrate 48 mg 05/28/18 10:00 05/28/18 08:59 Tricor PO 48 mg DAILY ALBAN Administration Gabapentin 400 mg 05/28/18 06:00 05/29/18 05:06 Neurontin PO 400 mg TID ALBAN Administration Glucagon 1 mg 05/27/18 22:26 IM .X1 PRN Hypoglycemia Guaifenesin 1,200 mg 05/28/18 10:00 05/28/18 22:28 Mucinex PO 1,200 mg BID ALBAN Administration Heparin Sodium (Porcine) 5,000 unit 05/27/18 22:26 05/28/18 22:28 Heparin Na SC 5,000 unit Q12 ALBAN Administration Sodium Chloride 1,000 mls @ 125 mls/hr 05/27/18 22:26 05/29/18 03:57 IV 125 mls/hr .Q8H AL[place]AN Administration Cefazolin Sodium 2 gm/ Sodium 110 mls @ 150 mls/hr 05/28/18 06:00 05/29/18 05:06 Chloride IV 150 mls/hr Q8 [facility]AN Administration Sodium Chloride 250 mls @ 15 mls/hr 05/27/18 22:30 IV .[id number] PRN SALINE FLUSH Insulin Human Lispro 0 unit 05/27/18 22:26 05/29/18 08:01 Humalog Kwikpen (Bkc) SQ Not Given ACHS [facility] Protocol Isosorbide Mononitrate 120 mg 05/29/18 10:00 Imdur PO DAILY ALBAN Lisinopril 2.5 mg 05/29/18 10:00 Zestril PO DAILY ALBAN Magnesium Hydroxide 30 ml 05/27/18 22:26 Milk Of Magnesia PO DAILY PRN Constipation Meclizine HCl 25 mg 05/27/18 23:39 Antivert PO TID PRN PRN DIZZINESS Meloxicam 15 mg 05/28/18 22:00 05/28/18 22:28 Mobic PO 15 mg QHS [facility]AN Administration Sertraline HCl 50 mg 05/28/18 10:00 05/28/18 09:00 Zoloft PO 50 mg DAILY [facility]AN Administration Sodium Chloride 5 - 15 ml 05/27/18 22:30 05/27/18 23:08 IV 10 ml UD PRN Administration SALINE FLUSH EEG reviewed, normal mri reviewed, normal Assessment/Plan All Active Problems UTI (urinary tract infection) (Acute) Syncope (Acute) syncope vs sz, favor syncope resolved ok to dc ok to continue wellbutrin f/u as op prn
[2018-05-29 08:50] VITALS: BP 155/83; PULSE 87; RESP 18; TEMP 36.9; O2SAT 93
[2018-05-29] MEDS: Atenolol 50 MG Tablet PO (08:52)
[2018-05-29] MEDS: Heparin Injection (Vial) 5,000 UNIT/ML VIAL 5000 UNIT SC (08:52)
[2018-05-29] MEDS: Lisinopril 2.5 MG Tablet PO (08:52)
[2018-05-29] MEDS: Baclofen 10 MG Tablet PO (08:53)
[2018-05-29] MEDS: Fenofibrate 48 MG Tablet PO (08:53)
[2018-05-29] MEDS: guaiFENesin 1,200 MG Tablet 1200 MG PO (08:53)
[2018-05-29] MEDS: Aspirin E.C. 81 MG Tablet PO (08:53)
[2018-05-29] MEDS: Sertraline 50 MG Tablet PO (08:54)
[2018-05-29] MEDS: buPROPion (SR) 150 MG Tablet.SA 300 MG PO (08:54)
--- NOTE | 2018-05-29 08:54 | EEG ---
- Electroencephalogram date of service 05/28/18 18 channel EEG performed following the international 10-20 electrode placement protocol, and utilizing HV, photic stimulation, and ECG reference leads. background activity is 10hz symmetrically which attenuates with eye opening. hyperventilation is performed for 1.5 minutes with no lateralizing or epileptiform changes and the post-hyperventilatory phase is unremarkeable. the patient experienced wakefullness and drowsiness during the recording with no lateralizing or epileptiform changes. photic stimulation generated a normal symmetric driving response in the posterior leads. impression: normal awake and asleep EEG
--- NOTE | 2018-05-29 10:05 | PCM.DC ---
- Discharge Diagnoses Current Active Problems: Current Active and Chronic Problems UTI (urinary tract infection) (Acute) Hypertension (Chronic) Diabetes (Chronic) Depression (Chronic) HLD (hyperlipidemia) (Chronic) Low back pain (Chronic) Anxiety (Chronic) CAD (coronary artery disease), [place] coronary artery (Chronic) Syncope (Acute) You will use the following diet at home:: Calorie/Carbohydrate Controlled (specify 1200, 1400, etc) Discharge Activity: Return to Normal Activity Call your doctor if you observe: Numbness or Tingling, Shortness of breath, Dizziness, Fainting spells, Chest pain Allergies/Adverse Reactions: Allergies bee venom protein (honey bee) Allergy (Mild, Verified 05/27/18 22:34) Swelling Medications to take at Discharge Meclizine HCl [Antivert] 25 mg PO TID PRN PRN 11/16/13 Aspirin E.C. [Ecotrin] 81 mg PO DAILY@0800 05/27/18 Atenolol [Tenormin (beta farida)] 50 mg PO DAILY 05/27/18 Atorvastatin Calcium [Lipitor] 80 mg PO QHS 05/27/18 Baclofen [Lioresal] 10 mg PO BID 05/27/18 Fenofibrate [Tricor] 48 mg PO DAILY 05/27/18 Gabapentin [Neurontin] 400 mg PO TID 05/27/18 Glimepiride [Amaryl] 2 mg PO DAILY 05/27/18 Isosorbide Mononitrate [Imdur] 120 mg PO DAILY 05/27/18 Lisinopril [Zestril] 2.5 mg PO DAILY 05/27/18 Meloxicam 15 mg PO QHS 05/27/18 Metformin HCl [Glucophage] 1,000 mg PO BIDCM 05/27/18 Nesina 25 mg PO DAILY 05/27/18 Nitroglycerin [Nitrostat] 0.4 mg PO PRN PRN 05/27/18 buPROPion SR [Wellbutrin SR (150mg tablets)] 300 mg PO DAILY 05/27/18 Cephalexin [Keflex] 500 mg PO Q6 #20 cap 05/29/18 Sertraline HCl [Zoloft] 50 mg PO DAILY #30 tab 05/29/18 The following prescriptions were given: Cephalexin [Keflex] 500 mg PO Q6 #20 cap Sertraline HCl [Zoloft] 50 mg PO DAILY #30 tab Primary Care Physician: Garrett Kaplan MD [Primary Care Provider] - Please follow up with your Primary Care Physician in: 1 Week Test Results: Test results from this visit will be discussed in further detail at your follow-up appointment, if applicable. Proposed Discharge Date: 05/29/18
--- NOTE | 2018-05-29 10:11 | DCINST_ITS ---
- Discharge Diagnoses Current Active Problems: Current Active and Chronic Problems UTI (urinary tract infection) (Acute) Hypertension (Chronic) Diabetes (Chronic) Depression (Chronic) HLD (hyperlipidemia) (Chronic) Low back pain (Chronic) Anxiety (Chronic) CAD (coronary artery disease), [place] coronary artery (Chronic) Syncope (Acute) You will use the following diet at home:: Calorie/Carbohydrate Controlled (specify 1200, 1400, etc) Discharge Activity: Return to Normal Activity Call your doctor if you observe: Numbness or Tingling, Shortness of breath, Dizziness, Fainting spells, Chest pain Allergies/Adverse Reactions: Allergies bee venom protein (honey bee) Allergy (Mild, Verified 05/27/18 22:34) Swelling Medications to take at Discharge Meclizine HCl [Antivert] 25 mg PO TID PRN PRN 11/16/13 Aspirin E.C. [Ecotrin] 81 mg PO DAILY@0800 05/27/18 Atenolol [Tenormin (beta farida)] 50 mg PO DAILY 05/27/18 Atorvastatin Calcium [Lipitor] 80 mg PO QHS 05/27/18 Baclofen [Lioresal] 10 mg PO BID 05/27/18 Fenofibrate [Tricor] 48 mg PO DAILY 05/27/18 Gabapentin [Neurontin] 400 mg PO TID 05/27/18 Glimepiride [Amaryl] 2 mg PO DAILY 05/27/18 Isosorbide Mononitrate [Imdur] 120 mg PO DAILY 05/27/18 Lisinopril [Zestril] 2.5 mg PO DAILY 05/27/18 Meloxicam 15 mg PO QHS 05/27/18 Metformin HCl [Glucophage] 1,000 mg PO BIDCM 05/27/18 Nesina 25 mg PO DAILY 05/27/18 Nitroglycerin [Nitrostat] 0.4 mg PO PRN PRN 05/27/18 buPROPion SR [Wellbutrin SR (150mg tablets)] 300 mg PO DAILY 05/27/18 Cephalexin [Keflex] 500 mg PO Q6 #20 cap 05/29/18 Sertraline HCl [Zoloft] 50 mg PO DAILY #30 tab 05/29/18 The following prescriptions were given: Cephalexin [Keflex] 500 mg PO Q6 #20 cap Sertraline HCl [Zoloft] 50 mg PO DAILY #30 tab Primary Care Physician: Garrett Kaplan MD [Primary Care Provider] - Please follow up with your Primary Care Physician in: 1 Week Test Results: Test results from this visit will be discussed in further detail at your follow- up appointment, if applicable. Proposed Discharge Date: 05/29/18
--- NOTE | 2018-05-29 10:12 | PCM.DC.SUM ---
Discharge Date and Diagnosis Date of Admission: 05/27/18 Date of Discharge: 05/29/18 - Primary Discharge Diagnosis Active and Suspected Problems 1. Acute E. coli UTI 2. Syncope, seizure ruled out 3. Recent URI, resolved. Respiratory panel negative. 4. Chronic kidney disease stage III, KYREE ruled out. - Secondary Discharge Diagnosis Chronic Problems Hypertension (Chronic) Diabetes (Chronic) Depression (Chronic) HLD (hyperlipidemia) (Chronic) Low back pain (Chronic) Anxiety (Chronic) CAD (coronary artery disease), [place] coronary artery (Chronic) Hospital Course and Treatment Imaging Results: Diagnostic Data Brain CT 05/27/18 18:11 IMPRESSION: Mild chronic left ethmoid sinusitis. Chronic involutional changes. Tiny old lacunar infarct of the right basal ganglia. There is no intracranial hemorrhage or evidence of acute infarct. Electronically Signed: Ben Harrell MD at 19:01 EST , Service support , Chest X-Ray 05/27/18 18:40 IMPRESSION: Normal x-ray examination of the chest. Electronically Signed: Ben Harrell MD at 19:11 EST , Service support , Brain MRI 05/28/18 07:14 IMPRESSION: No evidence of infarct or hemorrhage. Electronically Signed: Garrett Nielson MD at 10:12 EST Tel , Service support , Dr. Reyes- Neurology Operations: None Procedures: Electroencephalogram Summary of Care Provided: The patient is a 53 year old F admitted 05/27/2018 due to syncope. 1. Acute E. coli UTI- IV cefazolin during admission. Discharged on Keflex 500 mg 4 times daily for 5 days. 2. Syncope- Unclear etiology, seizure ruled out. MRI brain normal. EEG normal. Neuro consulted. Orthostatic vitals negative. Troponin negative. TSH within normal limits. Echo canceled. This may be ordered on an outpatient basis by primary care physician. 3. Recent URI- Improved. Respiratory panel negative. 4. Chronic kidney disease stage III, KYREE ruled out-baseline creatinine 1.2-1.4. Recommend referral to nephrology by primary care physician for monitoring of chronic kidney disease. 5. CAD-continue aspirin, statin, beta farida, imdur. 6. Hypertension-stable, continue home atenolol, isosorbide, lisinopril. 7. Hyperlipidemia- continue statin, fenofibrate. 8. Type 2 diabetes mellitus-home oral regimen on hold. Hemoglobin A1c 7.1%. 9. Anxiety/depression-home Wellbutrin decreased to 300 mg daily. Started on Zoloft 50 mg daily. 10. Chronic back pain-continue baclofen, gabapentin. General: Alert, Oriented x3, Cooperative HEENT: Atraumatic, PERRLA, EOMI, Normocephalic Neck: Supple, No JVD, Negative Carotid Bruits Lungs: Clear to auscultation, Normal air movement Cardiovascular: Regular rate, Regular Rhythm, Normal S1, Normal S2, No murmurs Abdomen: Bowel Sounds Present, Soft, Non Tender, Non-Distended Extremities: No clubbing, No cyanosis, No edema, Capillary Refill Less than 3 Seconds Skin: No rashes, No breakdown Musculoskeletal: No Tenderness to Palpation of Joints or Extremities Neurological: Cranial nerves II-XII grossly intact, Neuro grossly intact Psych/Mental Status: Normal Affect, Appropriate Patient seen and examined prior to discharge. Physical assessment as noted above. Patient is stable for discharge with follow up recommendations as noted above. This patient was seen by MERYL Perrin under the supervision of Dr. Morales. - Physical Exam Vital Signs Temp Pulse Resp BP Pulse Ox 98.5 F 87 18 155/83 H 93 05/29/18 08:50 05/29/18 08:50 05/29/18 08:50 05/29/18 08:50 05/29/18 08:50 Oxygen Delivery Method Room Air Weight: 141 lb 8.588 oz Body Mass Index (BMI) 25.9 Finger Stick Blood Glucose 191 Intake and Output for Last 24 Hours 05/27/18 05/28/18 05/29/18 23:59 23:59 23:59 Intake Total 4026 / 4026 1322 / 1322 Balance 4026 / 4026 1322 / 1322 Microbiology Past 72 Hours 05/27/18 19:56 Urine Culture - Final Urine, Clean Catch Presumptive E. coli 05/28/18 08:25 Respiratory Panel (PCR) - Final Mucosa - Nasopharyngeal Laboratory Tests Past 24 Hrs 05/27/18 05/29/18 Unknown 05:40 Sodium 143 Potassium 3.9 Chloride 112 H Carbon Dioxide 25.0 Anion Gap 6 BUN 11 Creatinine 1.00 Estim Creat Clear Calc 51.46 Est GFR (MDRD) Af Amer 75 Est GFR (MDRD) Non-Af 62 BUN/Creatinine Ratio 11.0 Glucose 114 H Hemoglobin A1c 7.1 H Calcium 8.2 L POC Glucose 05/29/18 05/28/18 05/28/18 06:45 22:33 16:12 POC Glucose 131 H 153 H 237 H 05/28/18 11:18 POC Glucose 188 H Discharge Diet: Carb Control Diet Discharge Activity: Return to Normal Activity Call your doctor if you observe: Numbness or Tingling, Shortness of breath, Dizziness, Fainting spells, Chest pain Home Medications: Medications to take at Discharge Meclizine HCl [Antivert] 25 mg PO TID PRN PRN 11/16/13 Aspirin E.C. [Ecotrin] 81 mg PO DAILY@0800 05/27/18 Atenolol [Tenormin (beta farida)] 50 mg PO DAILY 05/27/18 Atorvastatin Calcium [Lipitor] 80 mg PO QHS 05/27/18 Baclofen [Lioresal] 10 mg PO BID 05/27/18 Fenofibrate [Tricor] 48 mg PO DAILY 05/27/18 Gabapentin [Neurontin] 400 mg PO TID 05/27/18 Glimepiride [Amaryl] 2 mg PO DAILY 05/27/18 Isosorbide Mononitrate [Imdur] 120 mg PO DAILY 05/27/18 Lisinopril [Zestril] 2.5 mg PO DAILY 05/27/18 Meloxicam 15 mg PO QHS 05/27/18 Metformin HCl [Glucophage] 1,000 mg PO BIDCM 05/27/18 Nesina 25 mg PO DAILY 05/27/18 Nitroglycerin [Nitrostat] 0.4 mg PO PRN PRN 05/27/18 buPROPion SR [Wellbutrin SR (150mg tablets)] 300 mg PO DAILY 05/27/18 Cephalexin [Keflex] 500 mg PO Q6 #20 cap 05/29/18 Sertraline HCl [Zoloft] 50 mg PO DAILY #30 tab 05/29/18 Following Prescrptions Were Given to Patient: Cephalexin [Keflex] 500 mg PO Q6 #20 cap Sertraline HCl [Zoloft] 50 mg PO DAILY #30 tab Primary Care Physician: Garrett Kaplan MD [Primary Care Provider] - Please follow up with your Primary Care Physician in: 1 Week Disposition: Home Minutes spent on discharge:: 35 Patient Condition:: Stable Medical Necessity - Tobacco Use Smoking Status: Current every day smoker Meaningful Use Info Meaningful Use Diagnoses (Choose all that apply): None applicable
--- NOTE | 2018-05-29 10:23 | DS.PCM_ITS ---
Discharge Date and Diagnosis Date of Admission: 05/27/18 Date of Discharge: 05/29/18 - Primary Discharge Diagnosis Active and Suspected Problems 1. Acute E. coli UTI 2. Syncope, seizure ruled out 3. Recent URI, resolved. Respiratory panel negative. 4. Chronic kidney disease stage III, KYREE ruled out. - Secondary Discharge Diagnosis Chronic Problems Hypertension (Chronic) Diabetes (Chronic) Depression (Chronic) HLD (hyperlipidemia) (Chronic) Low back pain (Chronic) Anxiety (Chronic) CAD (coronary artery disease), [place] coronary artery (Chronic) Hospital Course and Treatment Imaging Results: Diagnostic Data Brain CT 05/27/18 18:11 IMPRESSION: Mild chronic left ethmoid sinusitis. Chronic involutional changes. Tiny old lacunar infarct of the right basal ganglia. There is no intracranial hemorrhage or evidence of acute infarct. Electronically Signed: Ben Harrell MD at 19:01 EST , Service support , Chest X-Ray 05/27/18 18:40 IMPRESSION: Normal x-ray examination of the chest. Electronically Signed: Ben Harrell MD at 19:11 EST , Service support , Brain MRI 05/28/18 07:14 IMPRESSION: No evidence of infarct or hemorrhage. Electronically Signed: Garrett Nielson MD at 10:12 EST Tel , Service support , Dr. Reyes- Neurology Operations: None Procedures: Electroencephalogram Summary of Care Provided: The patient is a 53 year old F admitted 05/27/2018 due to syncope. 1. Acute E. coli UTI- IV cefazolin during admission. Discharged on Keflex 500 mg 4 times daily for 5 days. 2. Syncope- Unclear etiology, seizure ruled out. MRI brain normal. EEG normal. Neuro consulted. Orthostatic vitals negative. Troponin negative. TSH within normal limits. Echo canceled. This may be ordered on an outpatient basis by primary care physician. 3. Recent URI- Improved. Respiratory panel negative. 4. Chronic kidney disease stage III, KYREE ruled out-baseline creatinine 1.2-1.4. Recommend referral to nephrology by primary care physician for monitoring of chronic kidney disease. 5. CAD-continue aspirin, statin, beta farida, imdur. 6. Hypertension-stable, continue home atenolol, isosorbide, lisinopril. 7. Hyperlipidemia- continue statin, fenofibrate. 8. Type 2 diabetes mellitus-home oral regimen on hold. Hemoglobin A1c 7.1%. 9. Anxiety/depression-home Wellbutrin decreased to 300 mg daily. Started on Zoloft 50 mg daily. 10. Chronic back pain-continue baclofen, gabapentin. General: Alert, Oriented x3, Cooperative HEENT: Atraumatic, PERRLA, EOMI, Normocephalic Neck: Supple, No JVD, Negative Carotid Bruits Lungs: Clear to auscultation, Normal air movement Cardiovascular: Regular rate, Regular Rhythm, Normal S1, Normal S2, No murmurs Abdomen: Bowel Sounds Present, Soft, Non Tender, Non-Distended Extremities: No clubbing, No cyanosis, No edema, Capillary Refill Less than 3 Seconds Skin: No rashes, No breakdown Musculoskeletal: No Tenderness to Palpation of Joints or Extremities Neurological: Cranial nerves II-XII grossly intact, Neuro grossly intact Psych/Mental Status: Normal Affect, Appropriate Patient seen and examined prior to discharge. Physical assessment as noted above. Patient is stable for discharge with follow up recommendations as noted above. This patient was seen by MERYL Perrin under the supervision of Dr. Morales. - Physical Exam Vital Signs Temp Pulse Resp BP Pulse Ox 98.5 F 87 18 155/83 H 93 05/29/18 08:50 05/29/18 08:50 05/29/18 08:50 05/29/18 08:50 05/29/18 08:50 Oxygen Delivery Method Room Air Weight: 141 lb 8.588 oz Body Mass Index (BMI) 25.9 Finger Stick Blood Glucose 191 Intake and Output for Last 24 Hours 05/27/18 05/28/18 05/29/18 23:59 23:59 23:59 Intake Total 4026 / 4026 1322 / 1322 Balance 4026 / 4026 1322 / 1322 Microbiology Past 72 Hours 05/27/18 19:56 Urine Culture - Final Urine, Clean Catch Presumptive E. coli 05/28/18 08:25 Respiratory Panel (PCR) - Final Mucosa - Nasopharyngeal Laboratory Tests Past 24 Hrs 05/27/18 05/29/18 Unknown 05:40 Sodium 143 Potassium 3.9 Chloride 112 H Carbon Dioxide 25.0 Anion Gap 6 BUN 11 Creatinine 1.00 Estim Creat Clear Calc 51.46 Est GFR (MDRD) Af Amer 75 Est GFR (MDRD) Non-Af 62 BUN/Creatinine Ratio 11.0 Glucose 114 H Hemoglobin A1c 7.1 H Calcium 8.2 L POC Glucose 05/29/18 05/28/18 05/28/18 06:45 22:33 16:12 POC Glucose 131 H 153 H 237 H 05/28/18 11:18 POC Glucose 188 H Discharge Diet: Carb Control Diet Discharge Activity: Return to Normal Activity Call your doctor if you observe: Numbness or Tingling, Shortness of breath, Dizziness, Fainting spells, Chest pain Home Medications: Medications to take at Discharge Meclizine HCl [Antivert] 25 mg PO TID PRN PRN 11/16/13 Aspirin E.C. [Ecotrin] 81 mg PO DAILY@0800 05/27/18 Atenolol [Tenormin (beta farida)] 50 mg PO DAILY 05/27/18 Atorvastatin Calcium [Lipitor] 80 mg PO QHS 05/27/18 Baclofen [Lioresal] 10 mg PO BID 05/27/18 Fenofibrate [Tricor] 48 mg PO DAILY 05/27/18 Gabapentin [Neurontin] 400 mg PO TID 05/27/18 Glimepiride [Amaryl] 2 mg PO DAILY 05/27/18 Isosorbide Mononitrate [Imdur] 120 mg PO DAILY 05/27/18 Lisinopril [Zestril] 2.5 mg PO DAILY 05/27/18 Meloxicam 15 mg PO QHS 05/27/18 Metformin HCl [Glucophage] 1,000 mg PO BIDCM 05/27/18 Nesina 25 mg PO DAILY 05/27/18 Nitroglycerin [Nitrostat] 0.4 mg PO PRN PRN 05/27/18 buPROPion SR [Wellbutrin SR (150mg tablets)] 300 mg PO DAILY 05/27/18 Cephalexin [Keflex] 500 mg PO Q6 #20 cap 05/29/18 Sertraline HCl [Zoloft] 50 mg PO DAILY #30 tab 05/29/18 Following Prescrptions Were Given to Patient: Cephalexin [Keflex] 500 mg PO Q6 #20 cap Sertraline HCl [Zoloft] 50 mg PO DAILY #30 tab Primary Care Physician: Garrett Kaplan MD [Primary Care Provider] - Please follow up with your Primary Care Physician in: 1 Week Disposition: Home Minutes spent on discharge:: 35 Patient Condition:: Stable Medical Necessity - Tobacco Use Smoking Status: Current every day smoker Meaningful Use Info Meaningful Use Diagnoses (Choose all that apply): None applicable
[2018-05-29 11:11] VITALS: PULSE 73
== END 2018-05-29 12:21 | disposition home or self-care (01) ==
LOC: ED 19:07 → PCU 22:03
PROVIDERS: Nurse Practitioner Family; Admitting Provider Family Medicine; Emergency Provider Emergency Medicine; Family Provider Family Medicine; PCP Family Medicine; Visit Provider Family Medicine
DX: N39.0 Urinary tract infection, site not specified (principal); B96.20 Unspecified Escherichia coli [E. coli] as the cause of diseases classified elsewhere; R55 Syncope and collapse; E11.22 Type 2 diabetes mellitus with diabetic chronic kidney disease; N18.3 Chronic kidney disease, stage 3 (moderate); I12.9 Hypertensive chronic kidney disease with stage 1 through stage 4 chronic kidney disease, or unspecified chronic kidney disease; Z79.899 Other long term (current) drug therapy; Z79.84 Long term (current) use of oral hypoglycemic drugs; Z79.82 Long term (current) use of aspirin; F41.9 Anxiety disorder, unspecified; F32.9 Major depressive disorder, single episode, unspecified; E78.5 Hyperlipidemia, unspecified; I25.10 Atherosclerotic heart disease of native coronary artery without angina pectoris; G89.29 Other chronic pain; N17.9 Acute kidney failure, unspecified; Z86.73 Personal history of transient ischemic attack (TIA), and cerebral infarction without residual deficits; J32.2 Chronic ethmoidal sinusitis; R42 Dizziness and giddiness; F17.200 Nicotine dependence, unspecified, uncomplicated
CPT/HCPCS: 36415; 70450; 70551; 71045; 80048; 81001; 82962; 83036; 83735; 84443; 84484; 85025; 87086; 87088; 87186; 87633; 93005; 94640; 95819; 96361; 96365; 96366; 96367; 96372; 96375; 96376; 99218; 99285; 99406; J7030; J7040; A4216; G0378; J2405

== ENCOUNTER 2021-07-07 08:43 | Outpatient (CLI) | payer MEDICAID, SELFPAY ==
--- NOTE | 2021-07-07 | FLU_PTH ---
PATIENT: ROSEANN KITCHEN LOC: [facility] U#:[id number] AGE/SX: 56/F ROOM: RE07/07/[address]: Dr. Bonifacio Scherer MD : 1965 BED: DIS: 07/07/2021 SPEC #: [id number] RECD: 07/07/21 17:31 STATUS: BAM REJoy #: [id number] SANJU: 07/07/21 00:[address]: Bonifacio Scherer DEPT: CYTOLOGY RECD BY: Sheila Chacon ENTERED: 07/08/21 10:18 SP TYPE: Fluid OTHR DR: Dr. Garrett Kaplan MD Tissues: A - Thyroid gland, NOS B - Thyroid gland, NOS Procedures: Special Stain Group II Surgery Specimen Level IV Cytospin Fluid HEADER OPERATION: Fine needle aspiration right thyroid PRE-OP DIAGNOSIS: Right thyroid nodule TISSUE SUBMITTED: A - FNA right thyroid nodule fluid, B ? FNA right thyroid slides x4 DIAGNOSIS CYTOLOGY A. Right thyroid nodule fluid, FNA (cytospin and cell block): Negative for malignant cells. See comment. B. Right thyroid nodule, FNA (smears): Nondiagnostic specimen. See comment. SJ:marci 07/09/2021 COMMENT A. The specimen is paucicellular and shows rare follicular cells, histiocytes and macrophages. B. The smears are acellular. Follicular cells are not seen. A & B. The specimens are nondiagnostic due to lack of adequate number of follicular cells. Correlation with clinical, radiologic findings and appropriate follow up are necessary. Case has been reviewed in consultation with Dr. Turner who concurs with the above diagnosis. IDC:AM CYTOLOGY STUDY Slides are reviewed. CYTOLOGY GROSS A - Received is 15 ml of yellow cloudy fluid labeled with the patient's name and and designated per the requisition as right thyroid nodule. Submitted for cytology preparation including cell block. B - Received are four smears labeled with the patient's name and designated per the requisition as right thyroid nodule. Submitted for staining. / marci 07/08/2021 TC: Cannot code CPT: 69657, 62956 x2 ADDENDUM ADDENDUM ADDENDUM ADDENDUM ADDENDUM ADDENDUM ADDENDUM ADDENDUM ADDENDUM ADDENDUM ADDENDUM ADDENDUM 12/10/2021 10:00 ADDENDUM 12/10/2021 10:00 ADDENDUM 12/10/2021 10:00 ADDENDUM 12/10/2021 10:00 ADDENDUM 12/10/2021 10:00 This addendum is added to incorporate an outside pathology consultation report. The case was examined at [facility] (#[id number]) and the following diagnosis was rendered. Right thyroid nodule, fine needle aspiration: Nondiagnostic aspirate sample. Insufficient follicular cells for diagnosis. Cyst contents. Please see complete above mentioned consultation report in EMR
== END 2021-07-07 23:59 | disposition short-term general hospital (02) ==
LOC: LABSPEC 07-08 08:43
PROVIDERS: PCP Family Medicine; Visit Provider Surgery
DX: E04.1 Nontoxic single thyroid nodule (principal)
CPT/HCPCS: 88108; 88305; 88313

== ENCOUNTER 2021-08-01 09:22 | Outpatient (CLI) | payer MEDICAID, SELFPAY ==
--- NOTE | 2021-08-01 | ASPIG_PTH ---
PATIENT: ROSEANN KITCHEN LOC: [facility]#:[id number] AGE/SX: 56/F ROOM: RE08/01/[address]: Dr. Bonifacio Scherer MD : 1965 BED: DIS: 08/01/2021 SPEC #: [id number] RECD: 08/01/21 11:28 STATUS: BAM GTZJoy #: [id number] SANJU: 08/01/21 00:[address]: Bonifacio Scherer DEPT: CYTOLOGY RECD BY: Elyssa Corey ENTERED: 08/01/21 11:30 SP TYPE: ASP OUT OTHR DR: Dr. Garrett Kaplan MD Tissues: A - Thyroid gland, NOS B - Thyroid gland, NOS Procedures: FNA Specimen Adequacy Special Stain Group II Surgery Specimen Level IV Cytology Other HEADER OPERATION: Ultrasound-guided FNA right thyroid nodule PRE-OP DIAGNOSIS: Right thyroid nodules TISSUE SUBMITTED: A - Thyroid cyst fluid, ultrasound- guided FNA, B - Thyroid nodule, ultrasound- guided FNA (smears) DIAGNOSIS CYTOLOGY A. Thyroid nodule, ultrasound-guided FNA (cytospin and cell block): Consistent with cyst contents. See comment. B. Thyroid nodule, ultrasound-guided FNA (smears and cell block): Nondiagnostic specimen. See comment. SJ:rg 08/04/2021 COMMENT The specimen is evaluated at the time of biopsy by Dr. Gomez. Immediate Evaluation: B. Predominantly blood. Rare follicular cells noted. A. The specimen predominantly consists of macrophages. Follicular cells are not identified. B. The specimen consists of rare follicular cells. The specimen is nondiagnostic due to lack of adequate number of follicular cells. Correlation with clinical, radiologic findings and appropriate follow up are necessary. Please make reference to previous specimen ([id number]) right thyroid nodule, FNA with diagnosis of ?nondiagnostic specimen.? CYTOLOGY STUDY Slides are reviewed. CYTOLOGY GROSS A - Received is 5 ml of grayish-brown turbid fluid labeled with the patient's name and and designated per the requisition as right thyroid nodule. Submitted for cytology preparation including cell block. B - Received in three passes is 0.5 ml of fluid labeled with the patient's name, and designated right thyroid. 12 imprints and 5 paps are made from the submitted fluid and the rest is added to CytoLyt for cell block preparation. Submitted for cytology study. / SJ:rg 08/01/2021 TC: Cannot code CPT: 40610 x2, 78418 x2, 46598 ADDENDUM ADDENDUM ADDENDUM ADDENDUM ADDENDUM ADDENDUM ADDENDUM ADDENDUM ADDENDUM ADDENDUM ADDENDUM ADDENDUM 12/10/2021 10:06 ADDENDUM 12/10/2021 10:06 ADDENDUM 12/10/2021 10:06 ADDENDUM 12/10/2021 10:06 ADDENDUM 12/10/2021 10:06 This addendum is added to incorporate an outside pathology consultation report. The case was examined at [facility] (#[id number]) and the following diagnosis was rendered. Right thyroid nodule, ultrasound-guided fine needle aspiration: Nondiagnostic aspirate sample. Insufficient follicular cells for diagnosis. Cyst contents. Please see complete above mentioned consultation report in EMR
--- NOTE | 2021-08-01 09:31 | US_ITS ---
STUDY: ULTRASOUND GUIDED RIGHT THYROID BIOPSY. REASON FOR EXAM: Female, 56 years old. THYROID NODULE TECHNIQUE: Under direct sonographic guidance, the surgeon performed 3 biopsies of the complex cystic nodule in the right lobe of the thyroid. COMPARISON: None. US/FNA 1st Biopsy w/ US IMPRESSION: Successful ultrasound-guided biopsy of the complex solid and cystic nodule in the right lobe of the thyroid. Electronically Signed: Rob Zepeda MD at 14:14 EST ,
--- NOTE | 2021-08-01 11:03 | NURSING ---
dressing applied, reviewed home care instuctions, pt voiced understanding of care and when to call the doctor, reviewed s/sof infection
[2021-08-01] MEDS: Lidocaine 2% (20 ml mdv) 20 ML Vial INFILT (11:07)
--- NOTE | 2021-08-01 14:09 | PCM.HP.BLA ---
History and Physical Date of Admission: 08/01/21 HISTORY AND PHYSICAL ? Annetta Viveros 1965 ? ? REFERRING PHYSICIAN: Sakshi Li APRN.C* ? CHIEF COMPLAINT: Consult (thyroid issues) ? HPI: The patient is a 56 year old female with a complaint of a right thyroid nodule. This thyroid nodule was found on Ultrasound by [facility]. The patient denies pain, notes difficulty swallowing, deniesrapid enlargement of the neck, notesdysphagia, notes occasional a change in the voice, notes hot or cold intolerence. The patient has not a prior history of neck radiation treatment. ? The patient is being seen by me today at the request of Dr. Li for my opinion and advice regarding Multinodular goiter (primary encounter diagnosis). ? PAST MEDICAL HISTORY PAST MEDICAL HISTORY Diagnosis Date ? Anxiety ? ? Coronary artery disease involving si[place] coronary artery of [place]oux heart with angina pectoris (HCC) 08/31/2016 ? Depression ? ? Diabetes mellitus (HCC) 2010 ? No nephropathy, neuropathy, retinopathy ? DJD (degenerative joint disease) of lumbar spine ? ? Hyperlipidemia 2010 ? Low back pain [id number] ? Unspecified , without mention of complication, unspecified ? ? 2 Miscarriage's ? ? PAST SURGICAL HISTORY PAST SURGICAL HISTORY Procedure Laterality Date ? DELIVERY ONLY ? ? ? , low cervical, (2) ? D&C, DIAG AND/OR THERAPEUTIC ? ? ? Dilation & curettage x 2 ? LIGATE FALLOPIAN TUBE ? 2001 ? REMOVE TONSILS/ADENOIDS,<12 Y/O ? ? ? REVISE MEDIAN N/CARPAL TUNNEL SURG Bilateral 09/18/2016 ? ? ? CURRENT MEDICATIONS Current Outpatient Medications Medication Sig Dispense Refill ? nystatin-triamcinolone (MYCOLOG II) cream Apply to affected area four times daily for 14 days. 15 g 0 ? glimepiride (AMARYL) 2 mg tablet Take 1 tablet by mouth daily with breakfast. 30 tablet 2 ? isosorbide mononitrate ER (IMDUR) 60 mg 24 hr tablet Take 2 tablets by mouth once daily. 60 tablet 2 ? gabapentin (NEURONTIN) 400 mg capsule Take 1 capsule by mouth three times daily for 90 days. 180 capsule 1 ? meclizine (ANTIVERT) 25 mg tab Take 1 tablet by mouth three times daily as needed. 30 tablet 5 ? atorvastatin (LIPITOR) 80 mg tablet Take 1 tablet by mouth once daily. 90 tablet 1 ? metFORMIN (GLUCOPHAGE) 1,000 mg tablet Take 1 tablet by mouth twice daily with meals. 180 tablet 1 ? SITagliptin (JANUVIA) 50 mg tablet Take 1 tablet by mouth once daily. 30 tablet 11 ? sertraline (ZOLOFT) 50 mg tablet Take 1 tablet by mouth once daily. 90 tablet 1 ? nitroglycerin sublingual (NITROQUICK) 0.4 mg SL tablet DISSOLVE 1 (ONE) TABLET UNDER THE TONGUE NEEDED FOR CHEST PAIN. MAY REPEAT EVERY 5 MINUTES IF NEEDED; MAX OF 3 DOSES. IF NO RELIEF, COURTNEY 1 Bottle of 25 3 ? methocarbamol (ROBAXIN-750) 750 mg tablet Take 1 tablet by mouth three times daily. 90 tablet 2 ? buPROPion SR (ZYBAN SR; WELLBUTRIN SR) 150 mg 12 hr tablet Take 1 tablet by mouth every morning and 1 tablet at dinner 270 tablet 3 ? fenofibrate nanocrystallized (TRICOR) 48 mg tablet Take 1 tablet by mouth once daily. 90 tablet 1 ? lisinopril (ZESTRIL, PRINIVIL) 5 mg tablet Take 0.5 tablets by mouth once daily. 45 tablet 3 ? meloxicam (MOBIC) 15 mg tablet Take 1 tablet by mouth once daily. 30 tablet 2 ? Blood Pressure Monitor Use as directed, Monitor and arm cuff. Dx: I25.119, N18.30, I.10 1 Kit 0 ? blood sugar diagnostic (BLOOD GLUCOSE TEST) test strip Test blood sugar(s) 1 times daily. Dx: Type 2 DM - Controlled E11.9 Insulin: No 50 Strip 11 ? aspirin, enteric coated (ASPIRIN, ENTERIC COATED) 81 mg EC tablet Take 1 tablet by mouth once daily. 90 tablet 3 ? atenolol (TENORMIN) 50 mg tablet Take 1 tablet by mouth once daily. 90 tablet 3 ? baclofen (LIORESAL) 10 mg tablet Take 1 tablet by mouth twice daily. 60 tablet 2 ? alogliptin (NESINA) 25 mg tab Take 1 tablet by mouth once daily. 90 tablet 3 ? Lancets lancets Test blood sugar(s) One time daily. Dx: Type 2 DM - Controlled E11.9 Insulin: No. Unilet Super Thin 30G Lancets 100 Each 11 ? UNILET SUPER THIN LANCETS 30 gauge [facility] USE TO TEST BLOOD SUGAR EVERY DAY 50 Each 5 ? blood sugar diagnostic (FREESTYLE LITE STRIPS) test strip 1 Strip once daily. E11.9 (Patient not taking: Reported on 07/01/2021 ) 50 Strip 5 ? No current facility-administered medications for this visit. ? ? ALLERGIES: Bees ? PERSONAL HISTORY: SOCIAL HISTORY Social History ? Tobacco Use ? Smoking status: Current Every Day Smoker ? ? Packs/day: 0.30 ? ? Years: 20.00 ? ? Pack years: 6.00 ? ? Types: Cigarettes ? Smokeless tobacco: Never Used ? Tobacco comment: TRYING TO QUIT-SMOKES 1-2 A DAY as of 11/28/15 Vaping Use ? Vaping Use: Never used Substance Use Topics ? Alcohol use: No ? ? Comment: Quit 2001 ? Drug use: No ? FAMILY HISTORY: FAMILY HISTORY FAMILY HISTORY Problem Relation Age of Onset ? Diabetes Mother ? ? Heart Mother ? ? Cataract Mother ? ? Emphysema Father ? ? Cancer Father ? ? other (Kidney Failure) Father ? ? Arthritis Paternal Aunt ? ? Arthritis Paternal Grandmother ? ? Hands ? ? REVIEW OF SYMPTOMS: The review of systems data was entered by the nurse and reviewed by me ? Nursing Notes: Priscilla Fox LPN 07/01/2021 2:17 PM Signed REVIEW OF SYSTEMS: General: The patient denies fatigue, denies weight loss, denies weight gain, denies feeling hot, and denies feelings of cold. Eyes: The patient denies glaucoma, denies eye injury/surgery, wears glasses or contacts. Ear/Nose/Throat: The patient denies allergies, denies hayfever, denies ear infections, and denies bloody noses. Cardiovascular: The patient denies chest pain, denies heart disease, denies high blood pressure,denies cardiac stent, denies prior heart attack, denies irregular heart beat, notes high cholesterol, denies poor circulation, denies heart failure, other cardiac issues, denies claudication, denies cold feet, denies peripheral arterial stent. Respiratory: The patient denies tuberculosis, denies pneumonia, denies frequent cough, denies pulmonary embolism, notes shortness of breath, and denies coughing up blood. Gastrointestinal: The patient denies difficulty swallowing, denies acid reflux, denies ulcers, denies vomiting, denies jaundice/hepatitis, denies gallbladder problems, denies black or tarry stools, denies hemorrhoids, denies bleeding from rectum, denies diverticulitis, denies constipation, denies diarrhea, denies loss of stool control, and denies hernias. Kidney/Bladder: The patient denies kidney stones, denies urine infections, and denies bloody urine. Skin: The patient denies a history of skin cancer, denies bleeding/changing moles, and denies a history of skin rash. Neurologic: The patient denies a history of epilepsy/convulsions, notes headaches, denies head/spinal injuries, and denies stroke/TIA. Psychiatric: The patient denies psychiatric medications, notes depression, and denies voices, denies substance abuse. Endocrine: The patient denies thyroid disorders, notes diabetes, and denies hormonal problems. Hematologic: The patient denies a history of bruising, denies bleeding, and denies anemia, denies blood clots. Infections: The patient denies a history of measles and mumps, denies rheumatic fever, and denies sexually transmitted diseases. Musculoskeletal: The patient notes back pain/injury, notes back problems, denies sciatica, notes knee/foot trouble, denies arthritis, or denies gout. ? ? When was patient's last Mammogram screening? 2019 ? Last Colonoscopy: states has never had one. ? Priscilla Fox LPN ? PHYSICAL EXAMINATION: ? General: The patient is 56 year old female, well nourished, well hydrated in no acute distress. The patient is oriented to time, place, and person. ? VITALS: Blood pressure 112/62, pulse 71, temperature (!) 35.8 ?C (96.4 ?F), height 157.5 cm (5' 2), weight 60.2 kg (132 lb 12.8 oz), last menstrual period 09/21/2010, SpO2 99 %. Body mass index is 24.29 kg/m?. ? HEENT: Normal cephalic, ataumatic, pupils are equally round, sclera are anicteric, mucous membranes are moist, oropharynx is clear. Neck has no masses, asymmetry or lymphadenopathy. Thyroid exam no heart palpable nodules are identified. ? Respiratory: Clear to auscultation and percussion. Normal respiratory excursion and pattern. ? Cardiac: Examination is regular rate and rhythm. ? Abdominal exam: Soft, nontender, with no palpable masses. No hepatosplenomegaly. No palpable hernias. ? Rectal exam: exam deferred ? Extremities: no clubbing, cyanosis or edema. No adenopathy. ? Other: ? LABORATORY VALUES: As Noted ? RADIOLOGIC STUDIES: As Noted ? Assessment IMPRESSION: NODULE - right THYROID ? PLAN: I plan to perform an FNAC of the right Thyroid. ? Diagnoses: (E04.2) Multinodular goiter (primary encounter diagnosis) ? ? ? My findings have been communicated to Dr. Li via shared medical record. This note will be forwarded to Dr. Garrett Kaplan MD. Return to Clinic: The patient is instructed to follow-up with me 1 week post operatively. ? Bonifacio Scherer III, MD .. I have re-examined the patient. There are no clinical changes since date of exam.
--- NOTE | 2021-08-01 14:09 | PCM.OPRPT ---
Problems Associated Problem List Diagnoses (1) Uninodular goiter: Report of Operation Date of Procedure: 08/01/21 Pre-Operative Diagnosis: Uninodular goiter Post-Operative Diagnosis: Same Surgery/Procedure Performed:: Ultrasound-guided fine-needle aspiration of uninodular goiter Surgeon: Bonifacio Scherer physiotherapist's assistant: None Type of Anesthesia: Local Description of Procedure: Patient was brought into the ultrasound vein ultrasound of the right thyroid gland revealed the nodule in question prepped skin with alcohol. Injected 1% lidocaine plain. Under ultrasound guidance I aspirated out a cyst. Under ultrasound guidance I took 3 passes with a 22-gauge needle. These were handed off to the pathologist. The patient did not tolerate this procedure well at all she was moving around quite a bit I would have like to done a few more passes but it was clear she was in no shape to undergo anything further. I will wait to see what we get back from this. She may need to have a referral to an endocrine surgeon for further evaluation. Admit VTE Documentation VTE Present on Admission: No VTE Mechan Device Prophylaxis: None VTE Pharm Prophylaxis ordered?: No Reason prophylaxis not ordered:: Treatment Not Indicated
== END 2021-08-01 23:59 | disposition home or self-care (01) ==
LOC: US 09:26
PROVIDERS: PCP Family Medicine; Referring Provider Surgery; Visit Provider Surgery
DX: E04.2 Nontoxic multinodular goiter (principal); E11.9 Type 2 diabetes mellitus without complications; I25.10 Atherosclerotic heart disease of native coronary artery without angina pectoris; F17.210 Nicotine dependence, cigarettes, uncomplicated; E78.5 Hyperlipidemia, unspecified; M54.50 Low back pain, unspecified; Z79.84 Long term (current) use of oral hypoglycemic drugs
CPT/HCPCS: 10005; 88161; 88172; 88305; 88313

== ENCOUNTER 2025-05-11 18:50 | Emergency (ER) | payer MEDICAID, SELFPAY ==
[2025-05-11 18:51] VITALS: BP 134/83; PULSE 73; RESP 18; TEMP 36.7; O2SAT 97; BMI 23.6
[2025-05-11 19:46] VITALS: BP 116/77; PULSE 71; RESP 17; O2SAT 95
--- NOTE | 2025-05-11 19:48 | EX.ED.DYSGE1 ---
HPI History of Present Illness Chief Complaint: Hyperglycemia Informant: patient Onset/Context/Timing Onset: Yesterday Context: Gradual Onset Timing: Waxes and wanes Quality: Lightheaded Location: Generalized Worsened by: Nothing Relieved by: Nothing Narrative Narrative: Patient presents with elevated blood sugars that began yesterday. Patient states her blood sugar at home was 592 tonight. Patient then came to the emergency department. Patient states she had elevated blood sugar over 500 last night as well. Patient states she feels lightheaded. Patient states her symptoms seem to wax and wane. Patient states nothing makes them better and nothing makes them worse. Patient admits to some rhinorrhea. Patient admits to some blurry vision. Patient also admits to some polydipsia. Patient denies any fevers or chills. Patient is on oral hypoglycemics for her diabetes. [facility] Medical History (Updated 05/11/25 @ 23:[address] Merrill Cummings, DO) Low back pain Hypertension HLD (hyperlipidemia) Diabetes Home Medications ?Medication ?Instructions ?Recorded ?Last Taken ?Type meclizine 12.5 mg tablet 25 mg PO TID PRN PRN Dizziness 11/16/13 05/27/18 History Nesina 25 mg PO DAILY diabetes 05/27/18 05/27/18 History aspirin 81 mg tablet,delayed 81 mg PO DAILY@0800 05/27/18 05/27/18 History release atenolol 50 mg tablet 50 mg PO DAILY 05/27/18 05/27/18 History atorvastatin 80 mg tablet 80 mg PO QHS 05/27/18 05/26/18 History baclofen 10 mg tablet 10 mg PO BID 05/27/18 05/27/18 History bupropion HCl 150 mg tablet,12 hr 300 mg PO DAILY 05/27/18 05/27/18 History sustained-release fenofibrate nanocrystallized 48 mg 48 mg PO DAILY 05/27/18 05/26/18 History tablet gabapentin 400 mg capsule 400 mg PO TID nerve pain 05/27/18 05/27/18 History glimepiride 2 mg tablet 2 mg PO DAILY 05/27/18 05/27/18 History isosorbide mononitrate 60 mg 120 mg PO DAILY 05/27/18 05/27/18 History tablet,extended release 24 hr lisinopril 5 mg tablet 2.5 mg PO DAILY bp 05/27/18 05/27/18 History meloxicam 15 mg tablet 15 mg PO QHS 05/27/18 05/26/18 History metformin 1,000 mg tablet 1,000 mg PO BIDCM 05/27/18 05/27/18 History nitroglycerin 0.4 mg sublingual 0.4 mg PO PRN PRN CHEST 05/27/18 Unknown History tablet cephalexin 500 mg capsule 500 mg PO Q6 #20 caps 05/29/18 Unknown Rx sertraline 50 mg tablet 50 mg PO DAILY #30 tabs 05/29/18 Unknown Rx Allergy/AdvReac Type Severity Reaction Status Date / Time bee venom protein (honey bee) Allergy Mild Swelling Verified 05/11/25 18:51 Surgical History no surgical history no surgical history Social History Smoking Status: Former smoker ROS ROS ED Constitutional Constitutional ED: Denies chills or fever(s) Eyes Eyes: Reports blurry vision; Denies change in vision ENT ENT ED: Reports rhinorrhea; Denies sore throat Cardiovascular Cardiovascular: Denies chest pain or palpitations Respiratory/Chest Respiratory/Chest: Denies cough or dyspnea Gastrointestinal Gastrointestinal: Denies nausea or vomiting Genitourinary Genitourinary ED: Denies dysuria or hematuria Musculoskeletal Musculoskeletal: Reports back pain and neck pain Integumentary Denies abscess or rash Neurologic Neurologic: Reports headache(s); Denies weakness Endocrine Endocrinology: Reports polydipsia Allergic/Immunologic Allergic/Immunologic ED: Denies mouth swelling or urticaria EXAM Physical Exam Const Vital Signs: 05/11/25 18:51 05/11/25 19:44 05/11/25 19:46 Temperature 98.1 F Temperature Source Oral Pulse Rate 73 71 Respiratory Rate 18 17 Respiratory Pattern Normal Blood Pressure 134/83 H 116/77 Blood Pressure Mean 100 90 Pulse Ox 97 95 Oxygen Delivery Method Room Air Room Air 05/11/25 21:23 05/11/25 22:14 Temperature Temperature Source Pulse Rate 73 70 Respiratory Rate 16 Respiratory Pattern Blood Pressure 124/78 H 104/68 Blood Pressure Mean 93 80 Pulse Ox 93 92 Oxygen Delivery Method Room Air Positive well nourished and well developed General Appearance ED: well developed and NAD HEENT Reports moist mucous membranes Neck supple and no JVD Resp normal respiratory effort and clear to auscultation bilaterally Cardio regular rate and regular rhythm GI non-tender and non-distended Palpation: soft Extremity normal to inspection General Extremety ED: Negative for edema or tenderness General Extremity: Negative for edema Neuro oriented x3, CN's II-XII intact bilaterally and no sensory deficits noted Sensorium / Orientation: alert Motor Exam: strength 5/5 throughout Psych mental status grossly normal MDM MDM MDM Narrative Medical decision making narrative: Differential diagnosis includes diabetic ketoacidosis, hyperglycemia, hyperosmolar hyperglycemic nonketotic state, dehydration, and electrolyte abnormality. CBC will be obtained to assess for leukocytosis and anemia. Basic metabolic profile will be obtained to assess for electrolyte abnormality and renal function. Urinalysis will be obtained to assess for urinary tract infection and glucosuria. Lab Data Attestation: I reviewed the patient's lab results. Lab results narrative: CBC was reviewed and was within normal limits. Basic metabolic profile was reviewed. Glucose was elevated at 326. Sodium was slightly low at 132 and chloride was slightly low at 96. BUN was mildly elevated at 25. The remainder is within normal limits. Urinalysis was reviewed. There is no evidence of urinary tract infection or hematuria. Labs: Laboratory Results - last 24 hr 05/11/25 05/11/25 05/11/25 18:56 20:13 21:19 WBC 6.9 RBC 4.85 Hgb 13.6 Hct 39.9 MCV 82.3 MCH 28.0 MCHC 34.1 RDW Std Deviation 43.8 RDW Coeff of Beena 14.9 H Plt Count 258 MPV 9.3 Immature Gran % (Auto) 0.600 Neut % (Auto) 69.5 Lymph % (Auto) 16.6 L [place] % (Auto) 8.2 Eos % (Auto) 4.1 Baso % (Auto) 1.0 Absolute Neuts (auto) 4.8 Absolute Lymphs (auto) 1.14 Nucleated RBC % 0 Sodium 132 L Potassium 4.3 Chloride 96 L Carbon Dioxide 22.7 Anion Gap 14 BUN 25 H Creatinine 1.11 Estim Creat Clear Calc 43.16 L Est GFR (MDRD) Non-Af 57 L BUN/Creatinine Ratio 22.3 H Glucose 326 H Calcium 11.0 Urine Color Straw Urine Clarity Clear Urine pH 6.0 Ur Specific [place] 1.015 Urine Protein Negative Urine Glucose (UA) 1000 H Urine Ketones Negative Urine Occult Blood 10 H Urine Nitrite Negative Urine Bilirubin Negative Urine Urobilinogen Normal Ur Leukocyte Esterase 25 H Urine RBC 0-5 SEEN Urine WBC 0-5 SEEN Ur Squamous Epith Cells 0-5 SEEN Urine Bacteria 0 SEEN Urine Mucus 0 SEEN POC Glucose 323 H Treatment and Re-Evaluation :: Patient was given IV fluids. Patient was given a dose of subcutaneous insulin. Patient's blood sugar improved to 213. Patient was feeling better on reevaluation. Patient was instructed to follow-up with her primary care physician in 5 to 7 days. Patient was instructed return if worse in any way. Patient understood and was agreeable with the plan. All questions were answered. Discharge Plan Triage Chief Complaint: Hyperglycemia ED Provider: Merrill Cummings Dx/Rx/DC Orders Clinical Impression: Hyperglycemia, Diabetes Instructions: ED Diabetic Hyperglycemia Prescriptions: No Action meclizine 12.5 MG tablet 25 mg PO TID PRN PRN (Reason: Dizziness) bupropion HCl 150 MG tablet sustained-release 12 hr 300 mg PO DAILY glimepiride 2 MG tablet 2 mg PO DAILY isosorbide mononitrate 60 MG tablet 120 mg PO DAILY baclofen 10 MG tablet 10 mg PO BID metformin 1,000 MG tablet 1,000 mg PO BIDCM nitroglycerin 0.4 tablet 0.4 mg PO PRN PRN (Reason: CHEST) fenofibrate nanocrystallized 48 MG tablet 48 mg PO DAILY atorvastatin 80 MG tablet 80 mg PO QHS aspirin 81 MG tablet 81 mg PO DAILY@0800 atenolol 50 MG tablet 50 mg PO DAILY meloxicam 15 MG tablet 15 mg PO QHS Patient Comments: TAKE 1 TABLET EVERY DAY gabapentin 400 MG capsule 400 mg PO TID Patient Comments: TAKE 1 CAPSULE THREE TIMES DAILY lisinopril 5 MG tablet 2.5 mg PO DAILY Patient Comments: TAKE 1/2 (ONE-HALF) OF A TABLET EVERY DAY Nesina 25 mg PO DAILY sertraline 50 MG tablet 50 mg PO DAILY Qty: 30 0RF cephalexin 500 MG capsule 500 mg PO Q6 Qty: 20 0RF Primary Care Provider: Garrett Kaplan Referrals: Garrett Kaplan MD [Primary Care Provider, Medical] - 3-5 Days Print Language: Lao Disposition Disposition: Home, Self Care
[2025-05-11] MEDS: 0.9% Normal Saline (1000mL) 1,000 ML 1000 ML IV (20:19)
--- OUTSIDE RECORDS SUMMARY | 2025-05-11 20:22 | XMS RPT_ITS | CCD ---
Author Organization [facility] Care Team Providers Care Private Secretary Name Role Phone EDVIN GRAY E Unavailable Unavailable HERACLIO GRAYNETH E Unavailable Unavailable HERACLIO GRAYNETH Unavailable Unavailable HERACLIO GRAYNETH Unavailable Unavailable Garrett Ventura Unavailable Unavailable EDVIN GRAY Unavailable Unavailable EDVIN GRAY Unavailable Unavailable Garrett Ventura Unavailable Unavailable Garrett Ventura MD Primary Care Provider Garrett Ventura MD Primary Care Provider Garrett Ventura MD Primary Care Provider Garrett Ventura MD Primary Care Provider GARRETT VENTURA Primary Care Unavailable BARBARA BRAN Referring Unavailable GARRETT VENTURA Primary Care Unavailable SAKSHI LI Referring Unavailable Garrett Ventura MD Primary Care Provider Prasanthagen OXYGEN THERAPIST.Abrahan STONEy Unavailable Suppan OXYGEN THERAPIST.BERTHA, Rabia A Unavailable [phone] Suppan OXYGEN THERAPIST.STAVE SAW OPERATOR, Rabia A Unavailable Suppan OXYGEN THERAPIST.BERTHA, Rabia A Unavailable GARRETT VENTURA Primary Care Unavailable SILVIO COOK Referring Unavailable GARRETT VENTURA Primary Care Unavailable SILVIO COOK Referring Unavailable GARRETT VENTURA Primary Care Unavailable MONICA CHINCHILLA Attending Unavailable VINCENT VALLE Attending Unavailable GARRETT VENTURA Primary Care Unavailable GARRETT VENTURA Primary Care Unavailable SAKSHI LI Referring Unavailable GARRETT VENTURA Primary Care Unavailable BARBARA BRAN Attending Unavailable GARRETT VENTURA Primary Care Unavailable BENDARAM, DAKSHA ZAPATA Attending Unavaila ble ALON, GARRETT Butler Primary Care Unavailable ALON, GARRETT Butler Primary Care Unavailable ALON, GARRETT Butler Referring Unavailable SILVIO COOK Attending Unavailable ALON, GARRETT Butler Referring Unavailable ALON, GARRETT Butler Primary Care Unavailable LUIS MENENDEZ Attending Unavailable ALON, GARRETT Butler Primary Care Unavailable BARBARA BRAN Attending Unavailable BENDARAM, DAKSHA ZAPATA Attending Unavaila ble ALON, GARRETT Butler Primary Care Unavailable SELF Referring Unavailable ALON, GARRETT Butler Primary Care Unavailable SILVIO COKO Referring Unavailable ALON, GARRETT Butler Primary Care Unavailable ALON, GARRETT Butler Referring Unavailable ALON, GARRETT Butler Primary Care Unavailable SAKSHI LI Referring Unavailable ALON, GARRETT Butler Primary Care Unavailable ALON, GARRETT Butler Referring Unavailable SAKSHI LI Attending Unavailable ALON, GARRETT Butler Primary Care Unavailable ALON, GARRETT Butler Primary Care Unavailable MANI MEDINA Attending Unavailable BENDARAM, DAKSHA ZAPATA Referring Unavaila ble BENDARAM, DAKSHA ZAPATA Attending Unavaila ble ALON, GARRETT Butler Primary Care Unavailable BENDARAM, DAKSHA ZAPATA Referring Unavaila ble BENDARAM, DAKSHA ZAPATA Attending Unavaila ble ALON, GARRETT Butler Primary Care Unavailable ALON, GARRETT Butler Primary Care Unavailable TRACY SAUER Referring Unavailable TRACY SAUER Attending Unavailable ALON, GARRETT Butler Primary Care Unavailable BARBARA BRAN Attending Unavailable BENDARAM, DAKSHA ZAPATA Referring Unavaila ble ALON, GARRETT Butler Primary Care Unavailable ALON, GARRETT Butler Primary Care Unavailable GERALDINE ARAYA Referring Unavailable ALON, GARRETT Butler Primary Care Unavailable ALON, GARRETT Butler Attending Unavailable ALON, GARRETT Butler Primary Care Unavailable SILVIO COOK Referring Unavailable TESTRAJARRED, SILVIO Attending Unavailable Allergies Allergy Classification Reported Allergen(s) Allergy Type Date of Onset Reaction(s) Facility (20 sources) Bee; Translations: [BEES] Propensity to adverse reactions (disorder) 9 [facility] Other [facility] (20 sources) Bee Venom Protein (Honey Bee); Translations: [BEE VENOM PROTEIN (HONEY BEE)] Drug Allergy 8 Unknown, Swelling [facility] Medications Current Medications Medication Drug Class(es) Dates Sig (Normalized) Sig (Original) acetaminophen 325 mg / HYDROcodone bitartrate 5 mg oral tablet (20 sources) Opioid Agonist Start: 12-20-2024 End: 12-27-2024 take 1-2 tablets by mouth every six hours as needed for pain HYDROcodone-acetaminop hen (NORCO) 5-325 mg per tablet Indications: Degeneration of intervertebral disc of lumbar region with discogenic back pain , Spondylolisthesis of lumbar region , Radiculopathy, lumbar region , Spinal stenosis of lumbar region with neurogenic claudication Take 1-2 tablets by mouth every 6 hours as needed for pain for up to 7 days. 28 tablet 12/20/2024 12/27/2024 Active Start: 09-21-2024 End: 09-28-2024 take 1-2 tablets by mouth every six hours as needed HYDROcodone-acetaminophen (NORCO) 5-325 mg per tablet Indications: Spondylolisthesis of lumbar region , Radiculopathy, lumbar region , Spinal stenosis of lumbar region with neurogenic claudication , DDD (degenerative disc disease), lumbar Take 1-2 tablets by mouth every 6 hours as needed for up to 7 days. 28 tablet 09/21/2024 09/28/2024 Active Start: 05-31-2024 End: 06-07-2024 take 1-2 tablets by mouth every six hours as needed HYDROcodone-acetaminophen (NORCO) 5-325 mg per tablet Indications: Spinal stenosis of lumbar region with neurogenic claudication , Spondylolisthesis of lumbar region , Radiculopathy, lumbar region , DDD (degenerative disc disease), lumbar Take 1-2 tablets by mouth every 6 hours as needed for up to 7 days. 28 tablet 05/31/2024 06/07/2024 Active Start: 02-22-2024 End: 02-29-2024 take 1-2 tablets by mouth every six hours as needed HYDROcodone-acetaminophen (NORCO) 5-325 mg per tablet Indications: DDD (degenerative disc disease), lumbar , Spinal stenosis of lumbar region with neurogenic claudication , Spondylolisthesis of lumbar region , Radiculopathy, lumbar region Take 1-2 tablets by mouth every 6 hours as needed for up to 7 days. 28 tablet 02/22/2024 02/29/2024 Active Start: 12-01-2023 End: 12-08-2023 take 1-2 tablets by mouth every six hours as needed HYDROcodone-acetaminophen (NORCO) 5-325 mg per tablet Indications: DDD (degenerative disc disease), lumbar , Spinal stenosis of lumbar region with neurogenic claudication , Spondylolisthesis of lumbar region , Radiculopathy, lumbar region Take 1-2 tablets by mouth every 6 hours as needed for up to 7 days. 28 tablet 0 12/01/2023 12/08/2023 Active Start: 08-16-2023 End: 08-23-2023 take 1-2 tablets by mouth every six hours as needed HYDROcodone-acetaminophen (NORCO) 5-325 mg per tablet Indications: DDD (degenerative disc disease), lumbar , Spinal stenosis of lumbar region with neurogenic claudication , Spondylolisthesis of lumbar region , Radiculopathy, lumbar region Take 1-2 tablets by mouth every 6 hours as needed for up to 7 days. 28 tablet 0 08/16/2023 08/23/2023 Active Start: 05-11-2023 End: 05-18-2023 take 1-2 tablets by mouth every six hours as needed HYDROcodone-acetaminophen (NORCO) 5-325 mg per tablet Indications: DDD (degenerative disc disease), lumbar , Spinal stenosis of lumbar region with neurogenic claudication , Spondylolisthesis of lumbar region , Radiculopathy, lumbar region Take 1-2 tablets by mouth every 6 hours as needed for up to 7 days. 28 tablet 0 05/11/2023 05/18/2023 Active Start: 02-02-2023 End: 02-09-2023 take 1-2 tablets by mouth every six hours as needed HYDROcodone-acetaminophen (NORCO) 5-325 mg per tablet Indications: DDD (degenerative disc disease), lumbar , Spinal stenosis of lumbar region with neurogenic claudication , Spondylolisthesis of lumbar region , Radiculopathy, lumbar region Take 1-2 tablets by mouth every 6 hours as needed for up to 7 days. 28 tablet 0 02/02/2023 02/09/2023 Active Start: 06-09-2022 End: 11-03-2022 take 1-2 tablets by mouth every six hours as needed HYDROcodone-acetaminophen (NORCO) 5-325 mg per tablet Indications: DDD (degenerative disc disease), lumbar , Spinal stenosis of lumbar region with neurogenic claudication , Spondylolisthesis of lumbar region , Radiculopathy, lumbar region Take 1-2 tablets by mouth every 6 hours as needed for up to 7 days. 28 tablet 06/09/2022 11/03/2022 Discontinued Start: 03-19-2022 End: 03-26-2022 take 1-2 tablets by mouth every six hours as needed HYDROcodone-acetaminophen (NORCO) 5-325 mg per tablet Indications: DDD (degenerative disc disease), lumbar , Spinal stenosis of lumbar region with neurogenic claudication , Spondylolisthesis of lumbar region , Radiculopathy, lumbar region Take 1-2 tablets by mouth every 6 hours as needed for up to 7 days. 28 tablet 0 03/19/2022 03/26/2022 Start: 12-04-2021 End: 12-11-2021 take 1-2 tablets by mouth every six hours as needed HYDROcodone-acetaminophen (NORCO) 5-325 mg per tablet Indications: DDD (degenerative disc disease), lumbar , Spinal stenosis of lumbar region with neurogenic claudication , Spondylolisthesis of lumbar region , Radiculopathy, lumbar region Take 1-2 tablets by mouth every 6 hours as needed for up to 7 days. 28 tablet 0 12/04/2021 12/11/2021 Active Comment on above: Take 1-2 tablets by mouth every 6 hours as needed for up to 7 days. [id number] 200 actuat albuterol 0.09 mg/actuat metered dose inhaler (20 sources) beta2-Adrenergic Agonist Start: 022 End: 025 take 2 puff(s) by inhalation every six hours as needed for wheezing albuterol HFA (PROVENTIL HFA, VENTOLIN HFA) 90 mcg/actuation inhaler Indications: Wheezing Inhale 2 puffs as instructed every 6 hours as needed for wheezing/shortness of breath. 18 g 1 12/27/2024 Active Comment on above: Inhale 2 Puffs as in structed every 6 hours as needed for wheezing/shortness of breath. aspirin 81 mg delayed release oral tablet (20 sources) Platelet Aggregation Inhibitor, Nonsteroidal Anti-inflammatory Drug Start: 021 End: 025 take 1 tablet by mouth once daily aspirin, enteric coated (ASPIRIN, ENTERIC COATED) 81 mg EC tablet Take 1 tablet by mouth once daily. 90 tablet 3 08/30/2024 Active Comment on above: Take 1 tablet by edi once daily. atenolol 50 mg oral tablet (20 sources) beta-Adrenergic [place] Start: End: 025 take 1 tablet by mouth once daily atenolol (TENORMIN) 50 mg tablet Take 1 tablet by mouth once daily. 90 tablet 3 02/15/2025 Active Comment on above: Take 1 tablet by edi once daily. atorvastatin 80 mg oral tablet (20 sources) HMG-CoA Reductase Inhibitor Start: 021 End: 025 take 1 tablet by mouth once daily atorvastatin (LIPITOR) 80 mg tablet Indications: Mixed hyperlipidemia Take 1 tablet by mouth once daily. 90 tablet 3 04/28/2024 04/28/2025 Active Start: 04-18-2020 End: 08-16-2020 take 1 tablet by mouth once daily atorvastatin (LIPITOR) 80 mg tablet Indications: Mixed hyperlipidemia Take 1 tablet by mouth once daily. 90 tablet 04/18/2020 08/16/2020 Discontinued Comment on above: Take 1 tablet by edi once daily. benzonatate 100 mg oral capsule (1 source) Non-narcotic Antitussive Start: 06-12-20 End: 06-27-19 take 1 capsule by mouth every eight hours as needed for cough and cough benzonatate (TESSALON PERLE) 100 mg capsule Indications: Acute cough Take 1 capsule by mouth every 8 hours as needed for cough for up to 15 days. 30 capsule 0 06/12/2022 06/27/2022 Active Comment on above: Take 1 capsule by [facility] every 8 hours as needed for cough for up to 15 days. betamethasone 0.5 mg/ml / clotrimazole 10 mg/ml topical lotion (4 sources) Azole Antifungal, Corticosteroid Start: 08-02-19 25 End: 08-16-19 25 clotrimazole-betame thasone (LOTRISONE) lotion Indications: Angular cheilitis Apply to affected area two times a day for 14 days. 30 mL 08/02/2024 08/16/2024 Active Start: 02-08-2023 End: 02-22-2023 clotrimazole-betamethasone ( LOTRISONE) cream Apply to affected area twice daily for 14 days. 15 g 0 02/08/2023 02/22/2023 Active Comment on above: Apply to affected ar ea twice daily for 14 days. Blood Pressure Monitor (20 sources) Start: 07-08-2020 Blood Pressure Monitor Indications: 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 , Stage 3 chronic kidney disease, unspecified whether stage 3a or 3b CKD (HCC) , Essential hypertension Use as directed, Monitor and arm cuff. Dx: I25.119, N18.30, I.10 1 Kit 07/08/2020 Active Start: 07-08-2020 Blood Pressure Monitor Indications: 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 (HCC) , Stage 3 chronic kidney disease, unspecified whether stage 3a or 3b CKD (HCC) , Essential hypertension Use as directed, Monitor and arm cuff. Dx: I25.119, N18.30, I.10 1 Kit 07/08/2020 Active Start: 07-08-2020 Blood Pressure Monitor Indications: 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 (HCC) , Stage 3 chronic kidney disease, unspecified whether stage 3a or 3b CKD (HCC) , Essential hypertension Use as directed, Monitor and arm cuff. Dx: I25.119, N18.30, I.10 1 Kit 0 07/08/2020 Active Start: 07-06-2020 End: 07-08-2020 Blood Pressure Monitor Indic ations: 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 (HCC) , Stage 3 chronic kidney disease, unspecified whether stage 3a or 3b CKD (HCC) , Essential hypertension Use as directed 1 Kit 07/06/2020 07/08/2020 Discontinued Comment on above: Use as directed, Mon itor and arm cuff. Dx: I25.119, N18.30, I.10 Blood-Glucose Meter (15 sources) Start: 5 Blood-Glucose Meter 1 each once daily. [id number] 1 each 10/13/2024 Active 24 hr buPROPion hydrochloride 150 mg extended release oral tablet (20 sources) Aminoketone Start: 4 End: 6 take 1 tablet by mouth once daily buPROPion XL (WELLBUTRIN XL) 150 mg 24 hr tablet Take 1 tablet by mouth once daily. 90 tablet 3 02/15/2025 02/15/2026 Active Start: 09-15-2023 End: 09-15-2023 take 1 tablet by mouth twice daily buPROPion (WELLBUTRIN) 75 mg tablet Take 1 tablet by mouth two times a day. 60 tablet 5 09/15/2023 09/15/2023 Discontinued Start: 08-10-2019 End: 01-24-2024 take 1 tablet by mouth once daily in the morning buPROPion SR (ZYBAN SR; WELLBUTRIN SR) 150 mg 12 hr tablet Take 1 tablet by mouth every morning and 1 tablet at dinner 270 tablet 3 12/04/2021 06/11/2022 Discontinued Comment on above: Take 1 tablet by edi th every morning and 1 tablet at dinner Take 1 tablet by edi th two times a day. calcium carbonate 625 mg / cholecalciferol 125 unt oral tablet (20 sources) Vitamin D Start: 2022 End: 2024 take 1 tablet by mouth twice daily calcium-cholecalcifero l, D3, (OSCAL+D 250) 250 mg-3.125 mcg (125 unit) per tablet Indications: Disorder of bone Take 1 tablet by mouth two times a day. 60 tablet 11 04/28/2024 04/28/2025 Active Comment on above: Take 1 tablet by edi th two times a day. cetirizine hydrochloride 10 mg oral tablet (3 sources) Histamine-1 Receptor Antagonist Start: 2024 End: 2024 take 1 tablet by mouth once daily cetirizine (ZYRTEC) 10 mg tablet Indications: Allergic contact dermatitis, unspecified trigger Take 1 tablet by mouth once daily. 30 tablet 10/31/2024 11/30/2024 Active cholecalciferol 0.025 mg oral capsule (20 sources) Vitamin D Start: 2021 End: 2024 take 1 capsule by mouth once daily Cholecalciferol, Vitamin D3, 25 mcg (1,000 unit) cap Indications: Vitamin D deficiency Take 1 capsule by mouth once daily. 30 capsule 11 04/28/2024 04/28/2025 Active Comment on above: Take 1 capsule by mo uth once daily. empagliflozin 10 mg oral tablet (20 sources) Sodium-Glucose Cotransporter 2 Inhibitor Start: 2021 End: 2023 take 1 tablet by mouth once daily at breakfast empagliflozin (JARDIANCE) 10 mg tablet Take 1 tablet by mouth daily with breakfast. 90 tablet 3 04/28/2024 Active Comment on above: Take 1 tablet by edi th daily with breakfast. ergocalciferol 1.25 mg oral capsule (7 sources) Provitamin D2 Compound Start: 2021 End: 2021 take 1 capsule by mouth every week ergocalciferol 50,000 unit capsule (VITAMIN D2, DRISDOL) Indications: Vitamin D deficiency Take 1 capsule by mouth one time a week. 12 capsule 3 03/17/2022 04/09/2022 Discontinued Comment on above: Take 1 capsule by mo ut one time a week. famotidine 20 mg oral tablet (20 sources) Histamine-2 Receptor Antagonist Start: 2024 take 1 tablet by mouth twice daily famotidine (PEPCID) 20 mg tablet Indications: Gastroesophageal reflux disease without esophagitis Take 1 tablet by mouth two times a day. 180 tablet 3 08/02/2024 Active Start: 01-24-2024 End: 01-23-2025 take 1 tablet by mouth once daily famotidine (PEPCID) 10 mg tablet Indications: Gastroesophageal reflux disease without esophagitis Take 1 tablet by mouth once daily. 90 tablet 3 01/24/2024 08/02/2024 Discontinued Start: 08-13-2023 End: 02-09-2024 take 1 tablet by mouth twice daily famotidine (PEPCID) 20 mg tablet Indications: Gastroesophageal reflux disease without esophagitis Take 1 tablet by mouth two times a day. 60 tablet 5 08/13/2023 01/24/2024 Discontinued Comment on above: Take 1 tablet by edi th two times a day. 12 hr guaiFENesin 600 mg extended release oral tablet (1 source) Start: End: take 2 tablets by mouth twice daily guaiFENesin (MUCINEX) 600 mg 12 hr tablet Indications: Acute cough , Chest congestion Take 2 tablets by mouth two times a day for 7 days. 28 tablet 07/11/2024 07/18/2024 Active 3 ml insulin glargine 100 unt/ml pen injector (20 sources) Insulin Analog Start: End: insulin glargine (LANTUS SOLOSTAR U-100 INSULIN) 100 unit/mL (3 mL) Indications: Diabetes mellitus type 1, controlled, without complications (HCC) Inject 12 Units subcutaneously every morning. 12 mL 12/18/2024 03/18/2025 Active Start: 09-15-2024 End: 12-18-2024 inject 8 [IU] by subcutaneous injection every twenty-four hours insulin glargine (LANTUS SOLOSTAR U-100 INSULIN) 100 unit/mL (3 mL) Indications: Diabetes mellitus type 1, controlled, without complications (HCC) Inject 8 Units subcutaneously every 24 hours. 15 mL 09/15/2024 12/18/2024 Discontinued 24 hr isosorbide mononitrate 60 mg extended release oral tablet (20 sources) Nitrate Vasodilator Start: 03-02-2022 End: 08-02-2024 take 1 tablet by mouth once daily isosorbide mononitrate ER (IMDUR) 30 mg 24 hr tablet Indications: Shortness of breath Take 1 tablet by mouth once daily. Take w/ 60 mg tablet for total daily dose of 90 mg. 90 tablet 3 08/02/2024 Active Start: 06-02-2021 End: 08-02-2024 take 1 tablet by mouth once daily isosorbide mononitrate ER (IMDUR) 60 mg 24 hr tablet Take 1 tablet by mouth once daily. Take w/ 30 mg tablet for total daily dose of 90 mg. 90 tablet 3 08/02/2024 Active Start: 07-03-2020 End: 11-15-2020 take 2 tablets by mouth once daily isosorbide mononitrate ER (IMDUR) 60 mg 24 hr tablet Take 2 tablets by mouth once daily. 60 tablet 2 07/03/2020 11/15/2020 Discontinued Comment on above: Take 2 tablets by mo uth once daily. Take 1 tablet by edi th once daily. Take w/ 30 mg tablet for total daily dose of 90 mg. Take 1 tablet by edi th once daily. Take w/ 60 mg tablet for total daily dose of 90 mg. itraconazole 100 mg oral capsule (1 source) Azole Antifungal Start: 01-19-20 End: 01-26-20 take 2 capsules by mouth twice daily itraconazole (SPORANOX PULSEPAK) 100 mg capsule Take 2 capsules by mouth two times a day for 7 days. 28 capsule 3 01/18/2025 01/25/2025 Active linagliptin 5 mg oral tablet (20 sources) Dipeptidyl Peptidase 4 Inhibitor Start: 09-15-19 End: 02-16-20 take 1 tablet by mouth once daily linaGLIPtin (TRADJENTA) 5 mg tab Indications: type 2 diabetes mellitus Take 1 tablet by mouth once daily. 90 tablet 3 02/15/2025 02/15/2026 Active Comment on above: Take 1 tablet by edi th once daily. meclizine hydrochloride 25 mg oral tablet (20 sources) Antiemetic Start: 06-04-20 End: 12-27-19 take 1 tablet by mouth every eight hours as needed for dizziness and dizziness meclizine (ANTIVERT) 25 mg tab Indications: Dizziness Take 1 tablet by mouth three times a day as needed. 90 tablet 1 12/27/2024 Active Start: 06-02-2021 End: 11-13-2022 take 1 tablet by mouth every eight hours as needed for dizziness and dizziness meclizine (ANTIVERT) 25 mg tab Indications: Dizziness Take 1 tablet by mouth three times daily as needed. 30 tablet 5 02/13/2022 11/13/2022 Discontinued Start: 01-17-2020 End: 08-16-2020 take 1 tablet by mouth every eight hours as needed meclizine (ANTIVERT) 25 mg tab Take 1 tablet by mouth three times daily as needed. 30 tablet 5 01/17/2020 08/16/2020 Discontinued Comment on above: Take 1 tablet by edi th three times daily as needed. Take 1 tablet by edi th three times a day as needed. methocarbamol 750 mg oral tablet (20 sources) Muscle Relaxant Start: End: take 1 tablet by mouth three times daily as needed methocarbamol (ROBAXIN-750) 750 mg tablet Take 1 tablet by mouth three times a day as needed. 90 tablet 2 12/20/2024 Active Start: 05-31-2024 End: 06-30-2024 take 1 tablet by mouth three times daily as needed methocarbamol (ROBAXIN-750) 750 mg tablet Take 1 tablet by mouth three times a day as needed. 90 tablet 2 05/31/2024 06/30/2024 Active Start: 02-22-2024 End: 03-23-2024 take 1 tablet by mouth three times daily as needed methocarbamol (ROBAXIN-750) 750 mg tablet Take 1 tablet by mouth three times a day as needed. 90 tablet 2 02/22/2024 03/23/2024 Active Start: 07-14-2021 End: 09-15-2023 take 1 tablet by mouth three times daily methocarbamol (ROBAXIN-750) 750 mg tablet Take 1 tablet by mouth three times daily. 90 tablet 2 06/09/2022 11/03/2022 Discontinued Start: 04-03-2020 End: 10-01-2020 take 1 tablet by mouth three times daily methocarbamol (ROBAXIN-750) 750 mg tablet Take 1 tablet by mouth three times daily. 90 tablet 04/03/2020 10/01/2020 Discontinued Comment on above: Take 1 tablet by edi th three times daily. Take 1 tablet by edi th three times a day. Take 1 tablet by edi th three times a day as needed. methylPREDNISolone (1 source) Corticosteroid Start: 11-01-19 25 End: 11-07-19 25 methylPREDNISolone (MEDROL, NED,) 4 mg Dose-Pack Indications: Allergic contact dermatitis, unspecified trigger Follow dosing instructions, take with food. 21 tablet 10/31/2024 11/06/2024 Active nitroglycerin 0.4 mg sublingual tablet (20 sources) Nitrate Vasodilator Start: 08-05-19 22 End: 09-19-19 25 nitroglycerin sublingual (NITROQUICK) 0.4 mg SL tablet DISSOLVE 1 (ONE) TABLET UNDER THE TONGUE NEEDED FOR CHEST PAIN. MAY REPEAT EVERY 5 MINUTES IF NEEDED; MAX OF 3 DOSES. IF NO RELIEF, COURTNEY 25 tablet 3 09/18/2024 Active Start: 06-28-2018 End: 02-07-2021 nitroglycerin sublingual (NI TROQUICK) 0.4 mg SL tablet DISSOLVE 1 (ONE) TABLET UNDER THE TONGUE NEEDED FOR CHEST PAIN. MAY REPEAT EVERY 5 MINUTES IF NEEDED; MAX OF 3 DOSES. IF NO RELIEF, COURTNEY 1 Bottle of 25 3 06/28/2018 02/07/2021 Discontinued Comment on above: DISSOLVE 1 (ONE) TAB LET UNDER THE TONGUE NEEDED FOR CHEST PAIN. MAY REPEAT EVERY 5 MINUTES IF NEEDED; MAX OF 3 DOSES. IF NO RELIEF, COURTNEY nystatin [id number] unt/ml / triamcinolone acetonide 1 mg/ml topical cream (2 sources) Polyene Antifungal, Corticosteroid Start: 02-14-20 End: 02-28-20 nystatin-triamcino lone (MYCOLOG II) cream Indications: Angular cheilitis Apply to affected area four times daily for 14 days. 15 g 0 02/13/2022 02/27/2022 Active Comment on above: Apply to affected ar ea four times daily for 14 days. sertraline 100 mg oral tablet (20 sources) Serotonin Reuptake Inhibitor Start: 02-09-20 End: 04-28-20 take 1 tablet by mouth once daily sertraline (ZOLOFT) 100 mg tablet Indications: Anxiety Take 1 tablet by mouth once daily. 90 tablet 3 04/28/2024 Active Start: 08-05-2021 End: 06-01-2023 take 1 tablet by mouth once daily sertraline (ZOLOFT) 50 mg tablet Indications: Anxiety Take 1 tablet by mouth once daily. 90 tablet 02/09/2022 08/18/2022 Discontinued Start: 07-03-2020 End: 02-07-2021 take 1 tablet by mouth once daily sertraline (ZOLOFT) 50 mg tablet Indications: Anxiety Take 1 tablet by mouth once daily. 90 tablet 1 07/03/2020 02/07/2021 Discontinued Comment on above: Take 1 tablet by [facility] once daily. triamcinolone acetonide 0.25 mg/ml topical cream (3 sources) Corticosteroid Start: 03-03-2025 triamcinolone (KENALOG) 0.025 % cream Indications: Rash Apply to affected area two times a day. 30 g 03/03/2025 Active Start: 10-31-2024 End: 11-14-2024 triamcinolone acetonide (HERACLIO ALOG) 0.1 % cream Indications: Allergic contact dermatitis, unspecified trigger Apply 1 application to affected area two times a day for 14 days. Apply to affected area. Location: Rash 30 g 10/31/2024 11/14/2024 Completed/Discontinued Medications Medication Drug Class(es) Dates Sig (Normalized) Sig (Original) alogliptin 25 mg oral tablet (20 sources) Start: 11-24-2018 End: 09-15-2023 take 1 tablet by mouth once daily alogliptin (NESINA) 25 mg tab Take 1 tablet by mouth once daily. 90 tablet 3 11/24/2018 08/18/2022 Discontinued Comment on above: Take 1 tablet by edi th once daily. baclofen 10 mg oral tablet (4 sources) gamma-Aminobutyric Acid-ergic Agonist Start: 09-28-2019 End: 12-04-2021 take 1 tablet by mouth twice daily baclofen (LIORESAL) 10 mg tablet Take 1 tablet by mouth twice daily. 60 tablet 2 09/28/2019 12/04/2021 Discontinued (Discontinued by another Health Care Provider) Comment on above: Take 1 tablet by edi th twice daily. Blood-Glucose Meter monitoring kit (1 source) Start: 07-06-2020 End: 07-07-2020 Blood-Glucose Meter monitoring kit Indications: Controlled type 2 diabetes mellitus without complication, without long-term current use of insulin ([facility]) Glucose Meter of Choice - Kit - Dx: Type 2 DM - Controlled E11.9 1 Each 07/06/2020 07/07/2020 cephalexin 500 mg oral capsule (11 sources) Cephalosporin Antibacterial Start: 05-29-2018 End: 02-13-2022 cephALEXin (KEFLEX) 500 mg capsule Take by mouth. 0 05/29/2018 02/13/2022 Discontinued (Other) Comment on above: Take by mouth. colchicine 0.6 mg oral tablet (15 sources) Start: 08-17-2023 End: 01-24-2024 colchicine 0.6 mg tablet Take 2 tabs by mouth, followed by 1 tab one hour later for gout flare. May repeat in 1 week. 6 tablet 0 08/17/2023 01/24/2024 Discontinued Comment on above: Take 2 tabs by mouth , followed by 1 tab one hour later for gout flare. May repeat in 1 week. cyclobenzaprine hydrochloride 10 mg oral tablet (9 sources) Muscle Relaxant Start: 09-22-2023 End: 12-01-2023 take 1 tablet by mouth three times daily as needed cyclobenzaprine (FLEXERIL) 10 mg tablet Indications: Neck pain Take 1 tablet by mouth three times a day as needed. 30 tablet 0 09/22/2023 12/01/2023 Discontinued (Discontinued by Patient) Comment on above: Take 1 tablet by edi three times a day as needed. fenofibrate 48 mg oral tablet (20 sources) Peroxisome Proliferator Receptor alpha Agonist Start: 08-05-2021 End: 09-15-2023 take 1 tablet by mouth once daily fenofibrate nanocrystallized (TRICOR) 48 mg tablet Indications: Mixed hyperlipidemia Take 1 tablet by mouth once daily. 90 tablet 1 03/02/2022 08/18/2022 Discontinued Start: 01-17-2020 End: 08-16-2020 take 1 tablet by mouth once daily fenofibrate nanocrystallized (TRICOR) 48 mg tablet Indications: Mixed hyperlipidemia Take 1 tablet by mouth once daily. 30 tablet 5 01/17/2020 08/16/2020 Discontinued Comment on above: Take 1 tablet by edi once daily. gabapentin 400 mg oral capsule (11 sources) Anti-epileptic Agent Start: 06-02-2021 End: 02-13-2022 take 1 capsule by mouth three times daily gabapentin (NEURONTIN) 400 mg capsule Indications: DDD (degenerative disc disease), lumbar Take 1 capsule by mouth three times daily for 90 days. 180 capsule 1 06/02/2021 02/13/2022 Discontinued (Other) Start: 01-17-2020 End: 08-16-2020 take 1 capsule by mouth three times daily gabapentin (NEURONTIN) 400 mg capsule Indications: DDD (degenerative disc disease), lumbar Take 1 capsule by mouth three times daily for 90 days. 270 capsule 01/17/2020 08/16/2020 Discontinued Comment on above: Take 1 capsule by mo [facility] three times daily for 90 days. glimepiride 2 mg oral tablet (20 sources) Sulfonylurea Start: 06-02-20 End: 01-24-20 take 1 tablet by mouth once daily at breakfast glimepiride (AMARYL) 2 mg tablet Indications: Controlled type 2 diabetes mellitus without complication, without long-term current use of insulin (HCC) Take 1 tablet by mouth daily with breakfast. 30 tablet 2 02/13/2022 06/11/2022 Discontinued Start: 07-03-2020 End: 11-15-2020 take 1 tablet by mouth once daily at breakfast glimepiride (AMARYL) 2 mg tablet Indications: Controlled type 2 diabetes mellitus without complication, without long-term current use of insulin (HCC) Take 1 tablet by mouth daily with breakfast. 30 tablet 2 07/03/2020 11/15/2020 Discontinued Comment on above: Take 1 tablet by edi th daily with breakfast. lisinopril 5 mg oral tablet (16 sources) Angiotensin Converting Enzyme Inhibitor Start: 03-21-20 End: 12-09-19 take 0.5 tablet by mouth once daily lisinopril (ZESTRIL, PRINIVIL) 5 mg tablet Take 0.5 tablets by mouth once daily. 45 tablet 3 12/08/2021 Active Comment on above: Take 0.5 tablets by mouth once daily. meloxicam 15 mg oral tablet (12 sources) Nonsteroidal Anti-inflammatory Drug Start: 01-03-20 End: 02-14-20 take 1 tablet by mouth once daily meloxicam (MOBIC) 15 mg tablet Indications: De Quervain's disease (tenosynovitis) Take 1 tablet by mouth once daily. 30 tablet 2 08/05/2020 02/13/2022 Discontinued (Other) Comment on above: Take 1 tablet by edi th once daily. metFORMIN hydrochloride 1000 mg oral tablet (20 sources) Biguanide Start: 06-04-20 End: 09-23-19 take 0.5 tablet by mouth twice daily at mealtime metFORMIN (GLUCOPHAGE) 1,000 mg tablet Indications: Controlled type 2 diabetes mellitus without complication, without long-term current use of insulin (HCC) Take 0.5 tablets by mouth two times a day with meals. GFR - 40 90 tablet 3 08/13/2023 09/23/2023 Discontinued Start: 02-20-2022 End: 11-13-2022 take 0.5 tablet by mouth twice daily at mealtime metFORMIN (GLUCOPHAGE) 1,000 mg tablet Indications: Controlled type 2 diabetes mellitus without complication, without long-term current use of insulin (HCC) Take 0.5 tablets by mouth twice daily with meals. GFR - 40 180 tablet 1 02/20/2022 11/13/2022 Discontinued Start: 04-30-2021 End: 12-04-2021 take 1 tablet by mouth twice daily at mealtime metFORMIN (GLUCOPHAGE) 1,000 mg tablet Indications: Controlled type 2 diabetes mellitus without complication, without long-term current use of insulin (HCC) Take 1 tablet by mouth twice daily with meals. 180 tablet 1 12/04/2021 Active Start: 01-17-2020 End: 08-16-2020 take 1 tablet by mouth twice daily at mealtime metFORMIN (GLUCOPHAGE) 1,000 mg tablet Indications: Controlled type 2 diabetes mellitus without complication, without long-term current use of insulin (HCC) Take 1 tablet by mouth twice daily with meals. 60 tablet 5 01/17/2020 08/16/2020 Discontinued Comment on above: Take 1 tablet by edi th twice daily with meals. Take 0.5 tablets by mouth twice daily with meals. GFR - 40 Take 0.5 tablets by mouth two times a day with meals. GFR - 40 mupirocin 20 mg/ml topical cream (1 source) RNA Synthetase Inhibitor Antibacterial Start: 07-06-2020 End: 07-16-2020 mupirocin (BACTROBAN) 2 % cream Apply 1 application to affected area three times daily for 10 days. Location: lower lip 15 g 07/06/2020 07/16/2020 nystatin [id number] unt/ml topical cream (1 source) Polyene Antifungal Start: 12-27-2018 End: 02-20-2021 nystatin (MYCOSTATIN) cream Indications: Angular cheilitis Apply 1 application to affected area twice daily. 45 g 12/27/2018 02/20/2021 Discontinued predniSONE 10 mg oral tablet (18 sources) Start: 07-11-2024 End: 10-31-2024 predniSONE (DELTASONE) 10 mg tablet Indications: Acute cough , Chest congestion Day #1 - 6 tablets PO then Day #2 - 5 tablets PO then Day #3 - 4 tablets PO then Day #4 - 3 tablets PO then Day #5 - 2 tablets PO then Day #6 - 1 tablet PO 21 tablet 07/11/2024 10/31/2024 Discontinued (Course of therapy completed) Start: 06-12-2022 End: 06-16-2022 take 1 tablet by mouth once daily at mealtime predniSONE (DELTASONE) 20 mg tablet Indications: Wheezing Take 1 tablet by mouth once daily for 4 days. Take daily with food. 4 tablet 0 06/12/2022 06/16/2022 Active Comment on above: Take 1 tablet by edi th once daily for 4 days. Take daily with food. regadenoson (LEXISCAN) 0.4 mg/5 mL syrg (1 source) Start: 03-25-20 End: 03-25-20 regadenoson (LEXISCAN) 0.4 mg/5 mL syrg Indications: 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 ([facility]) Inject 5 mL intravenously one time only for 1 dose. Give IV push over 10 seconds and follow with 5 ml of normal saline 5 mL 0 03/25/2022 03/25/2022 Comment on above: Inject 5 mL intraven ously one time only for 1 dose. Give IV push over 10 seconds and follow with 5 ml of normal saline SITagliptin 50 mg oral tablet (1 source) Dipeptidyl Peptidase 4 Inhibitor Start: 02-21-20 End: 08-29-19 take 1 tablet by mouth once daily SITagliptin (JANUVIA) 50 mg tablet Indications: Controlled type 2 diabetes mellitus without complication, without long-term current use of insulin ([facility]) Take 1 tablet by mouth once daily. 30 tablet 11 02/20/2021 08/28/2021 Discontinued Comment on above: Take 1 tablet by edi th once daily. Problems Active Problems Problem Classification Problem Date Documented Date Episodic/Chronic Anxiety disorders (20 sources) Anxiety; Translations: [Anxiety disorder, unspecified] Onset: 08-31-2016 08-31-2016 Chronic Cardiac dysrhythmias (1 source) Supraventricular tachycardia; Translations: [Supraventricular tachycardia] Chronic Chronic kidney disease (20 sources) Chronic kidney disease stage 3B ; Translations: [Chronic renal failure, stage 3b ([facility])] Onset: 01-24-2024 Chronic Conditions associated with dizziness or vertigo (8 sources) Dizziness; Translations: [Dizziness and giddiness] Episodic Coronary atherosclerosis and other heart disease (20 sources) Atherosclerotic heart disease of [place] coronary artery without angina pectoris; Translations: [Coronary atherosclerosis] Onset: 08-31-2016 08-31-2016 Chronic Diabetes mellitus with complications (6 sources) Type 2 diabetes mellitus; Translations: [Type 2 diabetes mellitus with diabetic chronic kidney disease] Onset: 01-18-2025 08-23-2023 Chronic Diabetes mellitus without complication (20 sources) Type 2 diabetes mellitus without complication; Translations: [Type 2 diabetes mellitus without complications] Onset: 03-25-2012 Resolved: 07-06-2020 04-10-2018 Chronic Diseases of mouth; excluding dental (2 sources) Angular cheilitis; Translations: [Diseases of lips] Episodic Disorders of lipid metabolism (20 sources) Hyperlipidemia; Translations: [Hyperlipidemia, unspecified] Onset: 03-25-2012 03-25-2012 Chronic Esophageal disorders (7 sources) Gastroesophageal reflux disease without esophagitis; Translations: [Gastro-esophageal reflux disease without esophagitis] Onset: 08-30-2024 08-13-2023 Chronic Essential hypertension (20 sources) Essential hypertension; Translations: [Essential (primary) hypertension] Onset: 02-22-2016 Chronic Headache; including migraine (1 source) Headache; Translations: [Headache, unspecified headache type] 03-03-2025 Episodic Headache; including migraine (1 source) Headache; including migraine; Translations: [Headache, unspecified headache type] Onset: 03-03-2025 Nutritional deficiencies (3 sources) Vitamin D deficiency; Translations: [Vitamin D deficiency, unspecified] Chronic Occlusion or stenosis of precerebral arteries (3 sources) Carotid artery stenosis; Translations: [Occlusion and stenosis of unspecified carotid artery] Onset: 10-20-2024 09-01-2024 Chronic Other bone disease and musculoskeletal deformities (2 sources) Disorder of bone; Translations: [Disorder of bone, unspecified] 05-05-2023 Episodic Other circulatory disease (2 sources) Low blood pressure; Translations: [Hypotension, unspecified] Episodic Other circulatory disease (2 sources) Pulmonary congestion ; Translations: [Other specified symptoms and signs involving the circulatory and respiratory systems] 07-11-2024 Episodic Other connective tissue disease (2 sources) Swelling of hand; Translations: [Other specified soft tissue disorders] 08-13-2023 Episodic Other connective tissue disease (1 source) Medial epicondylitis of left humerus; Translations: [Medial epicondylitis, left elbow] 01-24-2024 Episodic Other connective tissue disease (5 sources) Pain of bilateral hands; Translations: [Pain in right hand] 08-02-2024 Episodic Other connective tissue disease (5 sources) Triggering of digit; Translations: [Trigger finger, right middle finger] 08-02-2024 Episodic Other diseases of kidney and ureters (4 sources) Renal impairment; Translations: [Disorder of kidney and ureter, unspecified] 08-13-2023 Episodic Other lower respiratory disease (6 sources) Dyspnea; Translations: [Shortness of breath] Episodic Other lower respiratory disease (1 source) Shortness of breath; Translations: [Shortness of breath] Onset: 03-23-2022 Episodic Other lower respiratory disease (6 sources) Wheezing; Translations: [Wheezing] 02-08-2023 Episodic Other lower respiratory disease (2 sources) Cough; Translations: [Acute cough] 07-11-2024 Episodic Other nervous system disorders (20 sources) Bilateral carpal tunnel syndrome; Translations: [Carpal tunnel syndrome, bilateral upper limbs] Onset: 08-18-2016 08-18-2016 Chronic Other nervous system disorders (1 source) Chronic pain syndrome; Translations: [Chronic pain syndrome] Onset: 03-29-2025 Chronic Other non-traumatic joint disorders (1 source) Pain of right wrist; Translations: [Pain in right wrist] 07-06-2020 Episodic Other non-traumatic joint disorders (1 source) Pain of left wrist; Translations: [Pain in left wrist] 07-06-2020 Episodic Other nutritional; endocrine; and metabolic disorders (4 sources) Hypercalcemia; Translations: [Hypercalcemia] Chronic Other screening for suspected conditions (not mental disorders or infectious disease) (16 sources) Patient encounter status; Translations: [Encounter for screening for cardiovascular disorders] Episodic Other skin disorders (3 sources) Callosity; Translations: [Corns and callosities] 08-02-2024 Episodic Other skin disorders (1 source) Eruption; Translations: [Rash and other nonspecific skin eruption] 03-03-2025 Episodic Other skin disorders (1 source) Rash and other nonspecific skin eruption; Translations: [Rash] Onset: 03-03-2025 Episodic Other upper respiratory infections (3 sources) Viral upper respiratory tract infection; Translations: [Acute upper respiratory infection, unspecified] Onset: 03-03-2025 07-11-2024 Episodic Residual codes; unclassified (1 source) Tobacco user; Translations: [Tobacco use] Episodic Residual codes; unclassified (1 source) Postmenopausal state; Translations: [Asymptomatic menopausal state] 02-08-2023 Episodic Spondylosis; intervertebral disc disorders; other back problems (20 sources) Degeneration of lumbar intervertebral disc; Translations: [Other intervertebral disc degeneration, lumbar region] Onset: 06-08-2014 07-22-2018 Chronic Syncope (1 source) Near syncope; Translations: [Syncope and collapse] Episodic Thyroid disorders (4 sources) Multinodular goiter; Translations: [Nontoxic multinodular goiter] Chronic Unclassified (1 source) Unknown / UNK(Unknown) Onset: 09-22-2012 Unclassified (1 source) Finding of thyroid gland 09-01-2024 Unclassified (1 source) Degeneration of intervertebral disc of lumbar region with discogenic back pain; Translations: [Degeneration of intervertebral disc of lumbar region with discogenic back pain] Onset: 07-22-2018 Unclassified (1 source) Acute cough; Translations: [Acute cough] Onset: 07-11-2024 Past or Other Problems Problem Classification Problem Date Documented Da te Episodic/Chronic Acquired foot deformities (4 sources) Bunion; Translations: [Bunion of unspecified foot] Onset: 09-18-2024 08-02-2024 Episodic Allergic reactions (2 sources) Allergic contact dermatitis; Translations: [Allergic contact dermatitis, unspecified cause] Onset: 10-31-2024 10-31-2024 Episodic Mycoses (5 sources) Onychomycosis; Translations: [Tinea unguium] Onset: 01-18-2025 08-02-2024 Episodic Nonspecific chest pain (20 sources) Chest pain, unspecified; Translations: [Chest pain] Onset: 09-22-2012 Resolved: 07-06-2020 07-06-2020 Episodic Other acquired deformities (20 sources) Lumbar spondylolisthesis; Translations: [Spondylolisthesis, lumbar region] Onset: 10-14-2016 06-01-2018 Episodic Other acquired deformities (20 sources) Spondylolisthesis; Translations: [Spondylolisthesis, site unspecified] Onset: 07-22-2018 07-22-2018 Episodic Other acquired deformities (1 source) Spondylolisthesis, lumbar region; Translations: [Spondylolisthesis of lumbar region] Onset: 06-01-2018 Episodic Other aftercare (1 source) residential (current) use of insulin; Translations: [Type 2 diabetes mellitus with diabetic peripheral angiopathy without gangrene, with long-term current use of insulin (HCC)] Onset: 01-18-2025 Episodic Other circulatory disease (1 source) Other specified symptoms and signs involving the circulatory and respiratory systems; Translations: [Chest congestion] Onset: 07-11-2024 Episodic Other connective tissue disease (20 sources) Soft tissue lesion of shoulder region; Translations: [Bursopathy, unspecified] Onset: 10-20-2011 Resolved: 09-04-2016 09-04-2016 Episodic Other connective tissue disease (20 sources) Lateral epicondylitis; Translations: [Lateral epicondylitis, unspecified elbow] Onset: 06-19-2013 Resolved: 09-04-2016 09-04-2016 Episodic Other connective tissue disease (1 source) Pain in right hand; Translations: [Pain in both hands] Onset: 09-04-2024 Episodic Other connective tissue disease (1 source) Pain in left hand; Translations: [Pain in both hands] Onset: 09-04-2024 Episodic Other connective tissue disease (1 source) Trigger finger, right middle finger; Translations: [Trigger middle finger of right hand] Onset: 09-04-2024 Episodic Other lower respiratory disease (1 source) Wheezing; Translations: [Wheezing] Onset: 08-30-2024 Episodic Other nervous system disorders (20 sources) Numbness and tingling sensation of skin; Translations: [Anesthesia of skin] Onset: 09-22-2012 Resolved: 09-04-2016 09-04-2016 Episodic Other non-traumatic joint disorders (20 sources) Shoulder joint pain; Translations: [Pain in unspecified shoulder] Onset: 10-20-2011 Resolved: 09-04-2016 09-04-2016 Episodic Other skin disorders (1 source) Corns and callosities; Translations: [Callus] Onset: 09-18-2024 Episodic Spondylosis; intervertebral disc disorders; other back problems (20 sources) Spinal stenosis of lumbar region; Translations: [Spinal stenosis, lumbar region without neurogenic claudication] Onset: 10-02-2011 Resolved: 09-04-2016 06-08-2014 Episodic Thyroid disorders (3 sources) Finding of thyroid gland; Translations: [Other specified disorders of thyroid] Onset: 10-20-2024 08-30-2024 Episodic Results Test Name Value Interpretation Reference Range Facility [facility] 04-26-2025 CNOV Office Visit (ENWSTR ) ROSEANN VIVEROS ([id number]) 1965 F Date Time Provider Department 04/26/25 2:00 PM DAKSHA ANTON During your visit today, we recorded the following information about you: Temperature Pulse Respiration Weight 97.3 degrees 70/minute 20/minute 61.7 kg Daksha Anton MD 04/29/2025 12:27 PM Signed [facility] Follow up note Referred by: Dr. Garrett Ventura MD (PCP) Chief complaint: Poorly controlled Type 2 DM My final recommendations will be communicated back to the requesting physician by way of shared medical record or letter via US mail. History of Present Illness: Roseann Viveros is a 59-year-old female with a history of DM, HTN, HLD, lumbar stenosis, and CKD, presenting for follow up of DM type 2 Initial visit 09/15/24 CHARLENE 11/14/24 -Initially diagnosed: 23 years ago, following the of her youngest child. Denied any surgeries on pancreas, pancreatitis in the past . Symptoms No recent weight loss; desires weight reduction. Reports polyuria; suspects current yeast infection with dysuria and pruritus. Complications: Cardiovascular -- Yes HTN, HLP, CAD Has a follow-up appointment with a extractions technologist on Wednesday to discuss potential cardiac catheterization due to dyspnea. Statin Use -- yes atorvastatin 80 mg daily Retinopathy -- no Last PRATEEK/Retina Eval: Last eye exam approximately one year ago; reports no retinopathy- underwent laser surgery on both eyes, improving vision. Advised to schedule appt but has not completed this yet Nephropathy -- CKD stage 3b NEPTALI/ARB Use -- no Polyneuropathy -- Occasional paresthesia in feet; no recent episodes. Foot Exam: none - done on initial office visit with me Obesity -- No Other -- No -Family history of diabetes mellitus: in mother () and brother (complicated by open heart surgery and hypoglycemic car accident). Personal history of DKA or HHS-- No Personal history of pancreatitis-- No History of alcohol consumption--No Family history of thyroid cancer-- No Personal history of Urinary tract infections -- Reports burning sensation when urinating Diabetic education class: has completed with [facility] at [place] on 09/26/2024 . Diabetes Medications -Current regimen: Tradjenta 5 mg and Jardiance 10 mg, 15 units lantus daily . -Misses doses: None -Adverse medication effects: none Reports being scared of needles, and does not prefer using insulin -Previously Used DM Meds: Yes Metformin - was on it for almost 20 years, had no side effects, was discontinued Glimepiride- d/cd due to unknown reasons per patient . Blood sugars -Self monitoring of blood sugar via fingerstick: advised twice daily - we discussed about CGM on initial visit, but she is worried she will not be able to afford it, so we decided to do finger sticks Mostly in 200s, ranging from 137 to 330 Considers blood glucose levels above 200 mg/dL as high and below 70-75 mg/dL as low. -Brought blood glucose log for review: yes -BG log reviewed: yes Reports missing lantus for few days due to running out of needles in the recent past . Hypoglycemia -Hypoglycemic episodes: no recent episodes -Frequency and timing of hypoglycemia: N/A -Hypoglycemia awareness: yes, feels diaphoretic Manages high blood glucose with crackers and low blood glucose with candy. . 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 -Diet: Breakfast: Lunch: Dinner: Typically eats one to two meals per day, often skipping breakfast. Eats dinner with son and his family- reports daughter in law is not making much pasta now ROS: SYSTEMIC: Denies fatigue, malaise, energy, Weight has been stable, heat/cold intolerance, polydipsia EYES: Denies blurring of vision, diplopia, pain/discomfort, excessive tearing, swelling of eye lids, bulging, redness, dryness, NECK: Denies goiter, lump, pain/discomfort, dysphagia, hoarseness, sore thorat RESPIRATORY: Denies dyspnea at rest/with exertion, orthopnea cough, pleuritic chest pain, snoring, apnea episodes CARDIOVASCULAR: Chest pain, palpitations, irregular heart beats GASTRO-INTESTINAL:Denies Nausea, vomiting, abdominal pain, hyperdefecation, rectal bleeding NEUROLOGICAL: Denies dizziness, lightheadedness, weakness, cramping, numbness/tingling of extremities MUSCULOSKELETAL: Denies joint pain, stiffness, swelling, cramping or weakness. GENITOURINARY: Denies polyuria, recurrent UTI/yeast infections SKIN: Denies dryness, brittle nails, hair loss, alopecia, excessive sweating, flushing, darkening of skin PSYCHIATRIC: Denies anxiety, depression, panic attacks, irritability, mood swings Past Medical History PAST MEDICAL HISTORY Diagnosis Date Anxiety Coronary artery disease involving [place] coronary art (more content not included)... Normal [facility] CNPNon 04-26-2025 CNPN Telephone (PODIMM) ROSEANN VIVEROS ([id number]) 1965 F Date Time Provider Department 04/26/25 SILVIO COOK During your visit today, we recorded the following information about you: Silvio Cook 04/26/2025 7:44 PM Signed I called patient to discuss results of blood work. I shared these with her pcp. Recommend stopping the oral medication for fungal toenails. Recheck hepatic function panel in 1 month Silvio Cook DPM Allergies As of Date: 04/26/2025 Noted Allergy Reaction BEE VENOM PROTEIN (HONEY BEE) 05/27/2018 7 - Swelling Date Reviewed: 04/26/2025 Reviewed by: Sonja Verma MA - Fully Assessed Reason for Visit: Results [95] Primary Visit Diagnosis:Onychomycosis [B35.1] Order(s):HEPATIC FUNCTION PNL [SQHFP] Order #: [id number] FUTURE Prescriptions as of 04/26/2025 - LANTUS SOLOSTAR U-100 INSULIN 100 unit/mL (3 mL) Inject 18 Units subcutaneously every morning. - empagliflozin (JARDIANCE) 10 mg tablet Take 1 tablet by mouth daily with breakfast. - Insulin Selma, Disposable, (PEN NEEDLE) 32 gauge x 5/32 Inject 1 each subcutaneously every 24 hours. Give with each insulin administration. - methocarbamol (ROBAXIN) 750 mg tablet TAKE 1 TABLET BY MOUTH THREE TIMES DAILY NEEDED - blood sugar diagnostic (BLOOD GLUCOSE TEST) test strip 1 strip once daily. Test blood sugar(s) 1 time daily. Dx: Type 2 DM E11.9 Insulin: yes - triamcinolone (KENALOG) 0.025 % cream Apply to affected area two times a day. - atenolol (TENORMIN) 50 mg tablet Take 1 tablet by mouth once daily. - buPROPion XL (WELLBUTRIN XL) 150 mg 24 hr tablet Take 1 tablet by mouth once daily. - linaGLIPtin (TRADJENTA) 5 mg tab Take 1 tablet by mouth once daily. - albuterol HFA (PROVENTIL HFA, VENTOLIN HFA) 90 mcg/actuation inhaler Inhale 2 puffs as instructed every 6 hours as needed for wheezing/shortness of breath. - meclizine (ANTIVERT) 25 mg tab Take 1 tablet by mouth three times a day as needed. - Lancets 1 each two times a day. Use with blood glucose test once daily DX: E11.9 - Blood-Glucose Meter 1 each once daily. DXE11.9 - nitroglycerin sublingual (NITROQUICK) 0.4 mg SL tablet DISSOLVE 1 (ONE) TABLET UNDER THE TONGUE NEEDED FOR CHEST PAIN. MAY REPEAT EVERY 5 MINUTES IF NEEDED; MAX OF 3 DOSES. IF NO RELIEF, COURTNEY - aspirin, enteric coated (ASPIRIN, ENTERIC COATED) 81 mg EC tablet Take 1 tablet by mouth once daily. - isosorbide mononitrate ER (IMDUR) 30 mg 24 hr tablet Take 1 tablet by mouth once daily. Take w/ 60 mg tablet for total daily dose of 90 mg. - isosorbide mononitrate ER (IMDUR) 60 mg 24 hr tablet Take 1 tablet by mouth once daily. Take w/ 30 mg tablet for total daily dose of 90 mg. - famotidine (PEPCID) 20 mg tablet Take 1 tablet by mouth two times a day. - atorvastatin (LIPITOR) 80 mg tablet Take 1 tablet by mouth once daily. - calcium-cholecalciferol, D3, (OSCAL+D 250) 250 mg-3.125 mcg (125 unit) per tablet Take 1 tablet by mouth two times a day. - Cholecalciferol, Vitamin D3, 25 mcg (1,000 unit) cap Take 1 capsule by mouth once daily. - sertraline (ZOLOFT) 100 mg tablet Take 1 tablet by mouth once daily. - Blood Pressure Monitor Use as directed, Monitor and arm cuff. Dx: I25.119, N18.30, I.10 Problem List As Of Date 04/26/2025 Noted Resolved Lumbago [M54.50] 10/02/2011 09/04/2016 Pain in joint, shoulder region [M25.519] 10/20/2011 09/04/2016 Disorders of bursae and tendons in shoulder reg*10/20/2011 09/04/2016 Diabetes mellitus (HCC) [E11.9] 03/25/2012 07/06/2020 Hyperlipidemia [E78.5] 03/25/2012 Chest pain [R07.9] 09/22/2012 07/06/2020 Numbness and tingling [R20.0, R20.2] 09/22/2012 09/04/2016 Lateral epicondylitis of elbow [M77.10] 06/19/2013 09/04/2016 Lumbar stenosis [M48.061] 06/08/2014 DDD (degenerative disc disease), lumbar [M51.36*06/08/2014 Carpal tunnel syndrome, bilateral [G56.03] 08/18/2016 Anxiety [F41.9] 08/31/2016 Coronary artery disease [I25.10] 08/31/2016 Radiculopathy, lumbar region [M54.16] 10/14/2016 Spondylolisthesis of lumbar region [M43.16] 10/14/2016 Spinal stenosis of lumbar region with neurogeni*06/01/2017 Controlled type 2 diabetes mellitus without com*04/10/2018 Spondylolisthesis [M43.10] 07/22/2018 Essential (primary) hypertension [I10] 02/22/2016 Diagnosed: 06/10/2023 Chronic renal disease, stage IV (HCC) [N18.4] 01/24/2024 Encounter Status:Closed by SILVIO COOK DPM on 04/26/25 Normal [facility] Hepatic function 2000 panelo n 04-26-2025 Albumin [Mass/Vol] 4.3 g/dL Normal 3.9-4.9 [facility] Comment on above: Order Comment: Specimen Type: BLOOD SPEC IMENOrdering Facility: [facility] Address: [address] [place] [address] Performed By: #### 2 4325-3 ####[facility]ENTERWMOLIA [id number] [place] [address] [place] ALP [Catalytic activity/Vol] 171 U/L High 34-123 [facility] Comment on above: Order Comment: Specimen Type: BLOOD SPEC IMENOrdering Facility: [facility] Address: [address] [place] [address] Performed By: #### 2 4325-3 ####[facility]ITAL[facility]CL[facility] [id number] [place] [address] [place] ALT [Catalytic activity/Vol] 21 U/L Normal 7-38 [facility] Comment on above: Order Comment: Specimen Type: BLOOD SPEC IMENOrdering Facility: [facility] Address: [address] [place] [address] Performed By: #### 2 4325-3 ####[facility] [id number] [place] [address] [place] AST [Catalytic activity/Vol] 18 U/L Normal 13-35 [facility] Comment on above: Order Comment: Specimen Type: BLOOD SPEC IMENOrdering Facility: [facility] Address: [address] [place] [address] Performed By: #### 2 4325-3 ####[facility]ITALNCLIA [id number] [place] [address] [place] Bilirubin [Mass/Vol] 0.2 mg/dL Normal 0.2-1.3 [facility] Comment on above: Order Comment: Specimen Type: BLOOD SPEC IMENOrdering Facility: [facility] Address: [facility] [place] [address] Performed By: #### 2 4325-3 ####[facility] [id number] [address] [place] Bilirubin.conjug ated [Mass/Vol] 0.1 mg/dL Normal <0.3 [facility] Comment on above: Order Comment: Specimen Type: BLOOD SPEC IMENOrdering Facility: [facility] Address: [address] [place] [address] Performed By: #### 2 4325-3 ####[facility]NCL[facility] [id number] [address] STATES OF [facility] Protein [Mass/Vol] 7.4 g/dL Normal 6.3-8.0 [facility] Comment on above: Order Comment: Specimen Type: BLOOD SPEC IMENOrdering Facility: [facility] Address: [address] [place] [address] Performed By: #### 2 4325-3 ####[facility]CL[facility] [id number] [address] OF [facility] Cleo 04-15-2025 [facility] Telephone (EMQ) ROSEANN VIVEROS ([id number]) 1965 F Date Time Provider Department 04/15/25 DAKSHA ANTON EMQ During your visit today, we recorded the following information about you: Kamila Humphreys MA 04/15/2025 5:30 PM Signed Initiated PA for Insulin Glargine-yfgn 100UNIT/ML pen-injectors through [facility] Questions Completed Waiting for determination Kamila Prior Optical Manager III Endocrinology AND Metabolic [place] Marline Salmeron 04/18/2025 2:27 PM Signed Dear Provider, Your patient's medication Insulin Glargine-yfgn 100UNIT/ML pen-injectors was denied. Denial letters are sent directly to the patient and at times to the healthcare providers. If we receive a denial letter, it will be indexed for your review. If you want to appeal the decision. Please submit your request via staff message to the Fritz Shields Auth Appeals Pool ([phone]). You can find templates listed below to support your appeal in [employer] (Epic drop down, select patient care, select send letter). If it is an urgent request, you can email the CAMELIA kincaid Team at [email or web address]. Please make sure the documents below are completed in order to process your request. If the appeal is denied, do you want to schedule a peer to peer Yes/NO. We will schedule peer to peer automatically if yes. Thank You, Fritz Shields Auth Appeals Team Fritz DENISE Appeal letter Fritz DENISE Letter of Medical Necessity Fritz DENISE Clindoc denied Coverage is provided when the member meets the following requirements: 1. Documentation includes a current A1C with date (within the last 6 months) and must include a member specific A1C goal if less than 7%; AND 2. The member has had an inadequate clinical response (the inability to reach target A1C goal with documented adherence and appropriate dose escalation) after at least 120 days of use with at least two preferred medications having a similar duration of action in this UPDL category and indicated for diagnosis, which include but are not limited to: Lantus (Brand name preferred by the plan), Levemir, Toujeo (Brand name preferred by the plan), and Tresiba (Brand name preferred by the plan; Requires Step Therapy Authorization); OR when the member has a condition that is difficult to control, such as experiencing hypoglycemia or is prone to ketoacidosis; AND 3. The prescriber has submitted the details regarding the member's inadequate clinical response with at least one of the preferred formulations of the requested non-preferred medication within the same UPDL category OR has submitted reasons to support medical necessity beyond convenience why all of the preferred formulations cannot be used, which may include: Lantus (Brand name preferred by the plan) and Toujeo (Brand name preferred by the plan). 4. Coverage is provided when documentation of medical necessity beyond convenience is provided for why the member cannot be changed to the preferred drug(s) Semglee (Brand preferred by the plan) Marline Administrative Gang Leader I Endocrinology and Metabolism [place] Daksha Anton MD 04/19/2025 1:50 PM Signed Addended by: DAKSHA ANTON on: 04/19/2025 01:50 PM Modules accepted: Orders Allergies As of Date: 04/15/2025 Noted Allergy Reaction BEE VENOM PROTEIN (HONEY BEE) 05/27/2018 7 - Swelling Date Reviewed: 03/03/2025 Reviewed by: Leydi Campos MA - Fully Assessed Reason for Visit: Medication Preauthorization [914] Cmt: Insulin Glargine-yfgn 100UNIT/ML pen-injectors Primary Visit Diagnosis:Controlled type 2 diabetes mellitus without complication, without long-term current use of insulin (HCC) [E11.9] Order(s):LANTUS SOLOSTAR U-100 INSULIN 100 unit/mL (3 mL)Inject 12 Units subcutaneously every morning.Disp: 12 mLRfl: 0 Prescriptions as of 04/19/2025 - LANTUS SOLOSTAR U-100 INSULIN 100 unit/mL (3 mL) Inject 12 Units subcutaneously every morning. - Insulin Selma, Disposable, (PEN NEEDLE) 32 gauge x 5/32 Inject 1 each subcutaneously every 24 hours. Give with each insulin administration. - methocarbamol (ROBAXIN) 750 mg tablet TAKE 1 TABLET BY MOUTH THREE TIMES DAILY NEEDED - blood sugar diagnostic (BLOOD GLUCOSE TEST) test strip 1 strip once daily. Test blood sugar(s) 1 time daily. Dx: Type 2 DM E11.9 Insulin: yes - triamcinolone (KENALOG) 0.025 % cream Apply to affected area two times a day. - atenolol (TENORMIN) 50 mg tablet Take 1 tablet by mouth once daily. - buPROPion XL (WELLBUTRIN XL) 150 mg 24 hr tablet Take 1 tablet by mouth once daily. - linaGLIPtin (TRADJENTA) 5 mg tab Take 1 tablet by mouth once daily. - albuterol HFA (PROVENTIL HFA, VENTOLIN HFA) 90 mcg/actuation inhaler Inhale 2 puffs as instructed every 6 hours as needed for wheezing/shortness of breath. - meclizine (ANTIVERT) 25 mg tab Take (more content not included)... [facility] ROSE[facility] VIVEROS ([id number]) 1965 F Date Time Provider Department 04/12/25 DAKSHA ANTON ENWSTR During your visit today, we recorded the following information about you: Mary Ceballos RN 04/12/2025 8:59 AM Signed Fax received from [employer] requesting prior authorization on Insulin Glargine-yfgn 100UNIT/ML Pen-injectors. Kincaid: [id number] Forwarded to [facility] to complete prior auth. Mary Ceballos RN April 12, 2025 8:59 AM Allergies As of Date: 04/12/2025 Noted Allergy Reaction BEE VENOM PROTEIN (HONEY BEE) 05/27/2018 7 - Swelling Date Reviewed: 03/03/2025 Reviewed by: Leydi Campos MA - Fully Assessed Reason for Visit: Prior Authorization [Other] Prescriptions as of 04/12/2025 - insulin glargine (LANTUS SOLOSTAR U-100 INSULIN) 100 unit/mL (3 mL) Inject 12 Units subcutaneously every morning. - Insulin Selma, Disposable, (PEN NEEDLE) 32 gauge x 5/32 Inject 1 each subcutaneously every 24 hours. Give with each insulin administration. - methocarbamol (ROBAXIN) 750 mg tablet TAKE 1 TABLET BY MOUTH THREE TIMES DAILY NEEDED - blood sugar diagnostic (BLOOD GLUCOSE TEST) test strip 1 strip once daily. Test blood sugar(s) 1 time daily. Dx: Type 2 DM E11.9 Insulin: yes - triamcinolone (KENALOG) 0.025 % cream Apply to affected area two times a day. - atenolol (TENORMIN) 50 mg tablet Take 1 tablet by mouth once daily. - buPROPion XL (WELLBUTRIN XL) 150 mg 24 hr tablet Take 1 tablet by mouth once daily. - linaGLIPtin (TRADJENTA) 5 mg tab Take 1 tablet by mouth once daily. - albuterol HFA (PROVENTIL HFA, VENTOLIN HFA) 90 mcg/actuation inhaler Inhale 2 puffs as instructed every 6 hours as needed for wheezing/shortness of breath. - meclizine (ANTIVERT) 25 mg tab Take 1 tablet by mouth three times a day as needed. - Lancets 1 each two times a day. Use with blood glucose test once daily DX: E11.9 - Blood-Glucose Meter 1 each once daily. DXE11.9 - nitroglycerin sublingual (NITROQUICK) 0.4 mg SL tablet DISSOLVE 1 (ONE) TABLET UNDER THE TONGUE NEEDED FOR CHEST PAIN. MAY REPEAT EVERY 5 MINUTES IF NEEDED; MAX OF 3 DOSES. IF NO RELIEF, COURTNEY - aspirin, enteric coated (ASPIRIN, ENTERIC COATED) 81 mg EC tablet Take 1 tablet by mouth once daily. - isosorbide mononitrate ER (IMDUR) 30 mg 24 hr tablet Take 1 tablet by mouth once daily. Take w/ 60 mg tablet for total daily dose of 90 mg. - isosorbide mononitrate ER (IMDUR) 60 mg 24 hr tablet Take 1 tablet by mouth once daily. Take w/ 30 mg tablet for total daily dose of 90 mg. - famotidine (PEPCID) 20 mg tablet Take 1 tablet by mouth two times a day. - atorvastatin (LIPITOR) 80 mg tablet Take 1 tablet by mouth once daily. - calcium-cholecalciferol, D3, (OSCAL+D 250) 250 mg-3.125 mcg (125 unit) per tablet Take 1 tablet by mouth two times a day. - Cholecalciferol, Vitamin D3, 25 mcg (1,000 unit) cap Take 1 capsule by mouth once daily. - empagliflozin (JARDIANCE) 10 mg tablet Take 1 tablet by mouth daily with breakfast. - sertraline (ZOLOFT) 100 mg tablet Take 1 tablet by mouth once daily. - Blood Pressure Monitor Use as directed, Monitor and arm cuff. Dx: I25.119, N18.30, I.10 Problem List As Of Date 04/12/2025 Noted Resolved Lumbago [M54.50] 10/02/2011 09/04/2016 Pain in joint, shoulder region [M25.519] 10/20/2011 09/04/2016 Disorders of bursae and tendons in shoulder reg*10/20/2011 09/04/2016 Diabetes mellitus (HCC) [E11.9] 03/25/2012 07/06/2020 Hyperlipidemia [E78.5] 03/25/2012 Chest pain [R07.9] 09/22/2012 07/06/2020 Numbness and tingling [R20.0, R20.2] 09/22/2012 09/04/2016 Lateral epicondylitis of elbow [M77.10] 06/19/2013 09/04/2016 Lumbar stenosis [M48.061] 06/08/2014 DDD (degenerative disc disease), lumbar [M51.36*06/08/2014 Carpal tunnel syndrome, bilateral [G56.03] 08/18/2016 Anxiety [F41.9] 08/31/2016 Coronary artery disease [I25.10] 08/31/2016 Radiculopathy, lumbar region [M54.16] 10/14/2016 Spondylolisthesis of lumbar region [M43.16] 10/14/2016 Spinal stenosis of lumbar region with neurogeni*06/01/2017 Controlled type 2 diabetes mellitus without com*04/10/2018 Spondylolisthesis [M43.10] 07/22/2018 Essential (primary) hypertension [I10] 02/22/2016 Diagnosed: 06/10/2023 Chronic renal disease, stage IV (HCC) [N18.4] 01/24/2024 Encounter Status:Closed by MARY CEBALLOS on 04/12/25 [facility] 03-29-2025 CNOV Office Visit (PNMDNA ) JACKELINEROSEANN Davian ([id number]) 1965 F Date Time Provider Department 03/29/25 3:00 PM BARBARA BRAN During your visit today, we recorded the following information about you: Barbara Bran, YIN.STAVE SAW OPERATOR 03/29/2025 3:19 PM Signed Subjective ///// Roseann Viveros presents to [facility] Department for a follow up appointment. Since the last visit, Roseann M Jackeline states the pain has been persistent. Current pain intensity is 9 on a scale of 0-10. Pain located in lower back area and radiates down BLE. Pain described as cramping, aching, and sharp Symptoms interfere with physical activity. Pain is exacerbated by unable to pinpoint exacerbating factors/positions. Pain is mitigated by medication and ice. The medications are effective. The patient states the last dose of robaxin and Citra was taken at the beginning of last month. Patient Entered Questionnaires PROMIS Score Percentiles 02/02/2023 PROMIS Global Health Scale Physical Health Percentile 2 Mental Health Percentile 2 02/02/2023 Physical Health Physical Function Percentile 12 Pain Interference Percentile 5 Percentiles provide an indication of how the patient's score ranks in relation to the general population. Higher percentile rankings indicate better function/quality of life. 50th percentile is the average of the general population and indicates half of respondents had a worse score. > 31st percentile is within normal limits or better * < 31st percentile is at least ? SD worse than population, which may be clinically relevant < 16th percentile is at least 1 SD worse than population and warrants attention Review of Systems Constitutional: (-) Weight Gain (-) Weight Loss (-) Fatigue Cardiovascular: (-) hx heart surgery (-) Pacemaker Respiratory: (-) Shortness of Breath (-) Cough (-) Snoring Gastrointestinal: (-) Incontinence (-) Diarrhea (-) Constipation (-) Nausea/Vomiting Endocrine: (-) Thyroid Disorder (+) Diabetes Hematologic: (-) Prolonged Bleeding (-) Easy Bruising Genitourinary: (-) Incontinence (-) Frequency (-) Urinary Urgency Skin: (-) Open sores/wound Neurologic: (-) Headache (-) Double Vision Psychiatric: (-) Depression (-) Anxiety (-) Personal History of Alcohol or Substance Abuse (+) Family History of Alcohol or Substance Abuse ///// Chief Complaint Patient presents with: Refill Request Back Pain Physical Examination LMP 09/01/2010 General:well appearing and alert Skin: Skin color, texture, turgor normal, no rashes or lesions HEENT: normal Cardiovascular: Regular, rate and rhythm Lungs: Normal respiratory rate and rhythm, unlabored on room air Musculoskeletal: Back: Tenderness on palpation over the lumbar spine. Tenderness over the bilateral lumbar paraspinal muscles Extremities: Normal exam of the extremities Neurological: Mental Status: alert Gait: Antalgic. Trigger points: lumbosacral spine muscles. Assessment Assessment : Roseann is a 59-year-old female presenting for evaluation of low back pain radiating down both legs. Roseann reports low back pain that radiates down both legs, extending all the way to her feet on the right leg. She also notes numbness in the right leg, which is painful to touch, though she denies any visible heller or bruising. She describes the pain as severe, particularly in the mornings, making it difficult to get up. To manage her symptoms, she has made a homemade rice bag to apply heat to her back. She remains active by walking daily to [place] with her grandson to pickler helper her medications, though she anticipates this will become more difficult as the weather changes. Encounter Diagnosis ICD-10-CM 1. Degeneration of intervertebral disc of lumbar region with discogenic back pain M51.360 2. Spondylolisthesis of lumbar region M43.16 3. Radiculopathy, lumbar region M54.16 4. Spinal stenosis of lumbar region with neurogenic claudication M48.062 02/02/2023 PROMIS CAT Pain Interference PROMIS Pain Interference T-Score (range: 10 - 90) 66 (moderate) PROMIS Pain Interference Percentile 5 PROMIS Adult Short Form-Global Health Score (Mental) 28.4 (Poor) OARRS Report: Reviewed: The patient's OARRS report was reviewed and is consistent with the reported medication use. Plan Injection history was reviewed. Medication use and compliance were reviewed. 1. Continue medication management through the Pain Management Center 2. The following approved medication requests have been transmitted electronically. Requested Prescriptions Signed Prescriptions Disp Refills HYDROcodone-acetaminophen (NORCO) 5-325 mg per tablet 28 tablet 0 Sig: Take 1-2 tablets by mouth every 6 hours as needed for pain for up to 7 days. 3. Interventional procedure options dis (more content not included)... Normal [facility] 03-19-2025 [facility] Telephone (PNMDNA) ROSEANN VIVEROS ([id number]) 1965 F Date Time Provider Department 03/19/25 BARBARA BRAN PNMDNA During your visit today, we recorded the following information about you: Leanna Caceres RN 03/19/2025 3:36 PM Signed Patient contacted Pain Management with voicemail on 03/19/2025 at 1528 requesting medications refills. Patient can be reached at [phone]. CHARLENE: 12/20/2024 w/DB PLAN: Continue medication management through the Pain Management Center Interventional procedure options discussed. None Estevan Owens Encouraged regular home exercise program. F/U in 3 months NOV: NONE Patient requires an updated office visit for medication refills. Routing to clerical pool for appointment scheduling. Provider: Barbara Bran CNP WHY: Med Refills Allergies As of Date: 03/19/2025 Noted Allergy Reaction BEE VENOM PROTEIN (HONEY BEE) 05/27/2018 7 - Swelling Date Reviewed: 03/03/2025 Reviewed by: Leydi Campos MA - Fully Assessed Reason for Visit: Refill Request [94] Prescriptions as of 03/19/2025 - blood sugar diagnostic (BLOOD GLUCOSE TEST) test strip 1 strip once daily. Test blood sugar(s) 1 time daily. Dx: Type 2 DM E11.9 Insulin: yes - triamcinolone (KENALOG) 0.025 % cream Apply to affected area two times a day. - atenolol (TENORMIN) 50 mg tablet Take 1 tablet by mouth once daily. - buPROPion XL (WELLBUTRIN XL) 150 mg 24 hr tablet Take 1 tablet by mouth once daily. - linaGLIPtin (TRADJENTA) 5 mg tab Take 1 tablet by mouth once daily. - albuterol HFA (PROVENTIL HFA, VENTOLIN HFA) 90 mcg/actuation inhaler Inhale 2 puffs as instructed every 6 hours as needed for wheezing/shortness of breath. - meclizine (ANTIVERT) 25 mg tab Take 1 tablet by mouth three times a day as needed. - methocarbamol (ROBAXIN-750) 750 mg tablet Take 1 tablet by mouth three times a day as needed. - Lancets 1 each two times a day. Use with blood glucose test once daily DX: E11.9 - insulin glargine (LANTUS SOLOSTAR U-100 INSULIN) 100 unit/mL (3 mL) Inject 12 Units subcutaneously every morning. - Blood-Glucose Meter 1 each once daily. DXE11.9 - nitroglycerin sublingual (NITROQUICK) 0.4 mg SL tablet DISSOLVE 1 (ONE) TABLET UNDER THE TONGUE NEEDED FOR CHEST PAIN. MAY REPEAT EVERY 5 MINUTES IF NEEDED; MAX OF 3 DOSES. IF NO RELIEF, COURTNEY - Insulin Selma, Disposable, (PEN NEEDLE) 32 gauge x 5/32 Inject 1 Each subcutaneously every 24 hours. Give with each insulin administration. - aspirin, enteric coated (ASPIRIN, ENTERIC COATED) 81 mg EC tablet Take 1 tablet by mouth once daily. - isosorbide mononitrate ER (IMDUR) 30 mg 24 hr tablet Take 1 tablet by mouth once daily. Take w/ 60 mg tablet for total daily dose of 90 mg. - isosorbide mononitrate ER (IMDUR) 60 mg 24 hr tablet Take 1 tablet by mouth once daily. Take w/ 30 mg tablet for total daily dose of 90 mg. - famotidine (PEPCID) 20 mg tablet Take 1 tablet by mouth two times a day. - atorvastatin (LIPITOR) 80 mg tablet Take 1 tablet by mouth once daily. - calcium-cholecalciferol, D3, (OSCAL+D 250) 250 mg-3.125 mcg (125 unit) per tablet Take 1 tablet by mouth two times a day. - Cholecalciferol, Vitamin D3, 25 mcg (1,000 unit) cap Take 1 capsule by mouth once daily. - empagliflozin (JARDIANCE) 10 mg tablet Take 1 tablet by mouth daily with breakfast. - sertraline (ZOLOFT) 100 mg tablet Take 1 tablet by mouth once daily. - Blood Pressure Monitor Use as directed, Monitor and arm cuff. Dx: I25.119, N18.30, I.10 Problem List As Of Date 03/19/2025 Noted Resolved Lumbago [M54.50] 10/02/2011 09/04/2016 Pain in joint, shoulder region [M25.519] 10/20/2011 09/04/2016 Disorders of bursae and tendons in shoulder reg*10/20/2011 09/04/2016 Diabetes mellitus (HCC) [E11.9] 03/25/2012 07/06/2020 Hyperlipidemia [E78.5] 03/25/2012 Chest pain [R07.9] 09/22/2012 07/06/2020 Numbness and tingling [R20.0, R20.2] 09/22/2012 09/04/2016 Lateral epicondylitis of elbow [M77.10] 06/19/2013 09/04/2016 Lumbar stenosis [M48.061] 06/08/2014 DDD (degenerative disc disease), lumbar [M51.36*06/08/2014 Carpal tunnel syndrome, bilateral [G56.03] 08/18/2016 Anxiety [F41.9] 08/31/2016 Coronary artery disease [I25.10] 08/31/2016 Radiculopathy, lumbar region [M54.16] 10/14/2016 Spondylolisthesis of lumbar region [M43.16] 10/14/2016 Spinal stenosis of lumbar region with neurogeni*06/01/2017 Controlled type 2 diabetes mellitus without com*04/10/2018 Spondylolisthesis [M43.10] 07/22/2018 Essential (primary) hypertension [I10] 02/22/2016 Diagnosed: 06/10/2023 Chronic renal disease, stage IV (HCC) [N18.4] 01/24/2024 Encounter Status:Closed by LEANNA CACERES on 03/19/25 [facility] CNOVon 03-03-2025 CNOV Office Visit (WOUCA) ROSEANN VIVEROS ([id number]) 1965 F U[place] Date Time Provider Department 03/03/25 10:15 AM MONICA CHINCHILLA During your visit today, we recorded the following information about you: Temperature Pulse Respiration Blood pressure 97.2 degrees 66/minute 16/minute 122/70 Weight 59.1 kg Monica Chinchilla, OXYGEN THERAPIST.STAVE SAW OPERATOR 03/03/2025 10:34 AM Signed [facility] Subjective Roseann Viveros is a 59 year old female. Patient presents with: Mouth/Lip Problem: redness on outer edges of lips, headache and lightheadedness x 2 days Mouth/Lip Problem The patient is a 59-year-old female presenting with perioral erythema, cough and nasal congestion, lightheadedness, and headaches. Perioral Erythema: - Redness and cracks on the outer edges of the lips. - Painful upon examination. Headaches: - Worsening headaches, persistent for the past few days. - Taking Tylenol today. - Associated with lightheadedness. - Denies fever. URI Symptoms: - Cough and rhinorrhea. - Occasional otalgia in the right ear, with decreased hearing. Review of Systems Constitutional: (-) fever Head: (+) headache Ears/Nose/Mouth/Throat: (+) decreased hearing, (+) ear pain, (+) rhinorrhea, (+) lip pain, (+) lip fissures Respiratory: (+) cough Neurological: (+) lightheadedness Objective BP 122/70 Pulse 66 Temp 36.2 ?C (97.2 ?F) Resp 16 Wt 59.1 kg (130 lb 4.7 oz) LMP 09/01/2010 SpO2 95% BMI 23.83 kg/m? 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 08/31/2016 - Depression - Diabetes mellitus (HCC) 2010 No nephropathy, neuropathy, retinopathy - DJD (degenerative joint disease) of lumbar spine - Hyperlipidemia 2010 - Low back pain [id number] - Unspecified , without mention of complication, unspecified (HCC) 2 Miscarriage's PAST SURGICAL HISTORY Procedure Laterality Date - DELIVERY ONLY , low cervical, (2) - DILATION AND CURETTAGE DXAND/THER NONOBSTETRIC Dilation AND curettage x 2 - LIGATE FALLOPIAN TUBE 2001 - NEUROPLASTY AND/TRANSPOS MEDIAN NRV CARPAL TUNNE Bilateral 09/18/2016 - THYROID FINE NEEDLE ASPIRATION Right 07/07/2021 - THYROID FINE NEEDLE ASPIRATION 08/01/2021 - TONSILLECTOMY AND ADENOIDECTOMY ALLERGIES Bee Venom Protein (Honey Bee) MEDICATIONS - blood sugar diagnostic (BLOOD GLUCOSE TEST) test strip 1 strip two times a day. Test blood sugar(s) 2 times daily. Dx: Type 2 DM - Controlled E11.9 Insulin: No - atenolol (TENORMIN) 50 mg tablet Take 1 tablet by mouth once daily. - buPROPion XL (WELLBUTRIN XL) 150 mg 24 hr tablet Take 1 tablet by mouth once daily. - linaGLIPtin (TRADJENTA) 5 mg tab Take 1 tablet by mouth once daily. - albuterol HFA (PROVENTIL HFA, VENTOLIN HFA) 90 mcg/actuation inhaler Inhale 2 puffs as instructed every 6 hours as needed for wheezing/shortness of breath. - meclizine (ANTIVERT) 25 mg tab Take 1 tablet by mouth three times a day as needed. - methocarbamol (ROBAXIN-750) 750 mg tablet Take 1 tablet by mouth three times a day as needed. - Lancets 1 each two times a day. Use with blood glucose test once daily DX: E11.9 - insulin glargine (LANTUS SOLOSTAR U-100 INSULIN) 100 unit/mL (3 mL) Inject 12 Units subcutaneously every morning. - Blood-Glucose Meter 1 each once daily. DXE11.9 - nitroglycerin sublingual (NITROQUICK) 0.4 mg SL tablet DISSOLVE 1 (ONE) TABLET UNDER THE TONGUE NEEDED FOR CHEST PAIN. MAY REPEAT EVERY 5 MINUTES IF NEEDED; MAX OF 3 DOSES. IF NO RELIEF, COURTNEY - Insulin Selma, Disposable, (PEN NEEDLE) 32 gauge x 5/32 Inject 1 Each subcutaneously every 24 hours. Give with each insulin administration. - aspirin, enteric coated (ASPIRIN, ENTERIC COATED) 81 mg EC tablet Take 1 tablet by mouth once daily. - isosorbide mononitrate ER (IMDUR) 30 mg 24 hr tablet Take 1 tablet by mouth once daily. Take w/ 60 mg tablet for total daily dose of 90 mg. - isosorbide mononitrate ER (IMDUR) 60 mg 24 hr tablet Take 1 tablet by mouth once daily. Take w/ 30 mg tablet for total daily dose of 90 mg. - famotidine (PEPCID) 20 mg tablet Take 1 tablet by mouth two times a day. - atorvastatin (LIPITOR) 80 mg tablet Take 1 tablet by mouth once daily. - calcium-cholecalciferol, D3, (OSCAL+D 250) 250 mg-3.125 mcg (125 unit) per tablet Take 1 tablet by mouth two times a day. - Cholecalciferol, Vitamin D3, 25 mcg (1,000 unit) cap Take 1 capsule by mouth once daily. - empagliflozin (JARDIANCE) 10 mg tablet Take 1 tablet by mouth daily with breakfast. - sertraline (ZOLOFT) 100 mg tablet Take 1 tablet by mouth once daily. - Blood Pressure Monitor Use as directed, Monitor and arm cuff. Dx: I25.119, N18.30, I.10 - triamcinolone (KENALOG) 0.025 % cream Apply to affected area two times a d (more content not included)... Normal [facility] Hepatic function 2000 panelo n 03-03-2025 Albumin [Mass/Vol] 4.6 g/dL Normal 3.9-4.9 [facility] Comment on above: Order Comment: Specimen Type: BLOOD SPEC IMENOrdering Facility: [facility] Address: [address] [place] [address] Performed By: #### 2 4325-3 ####[facility] LABCLIA [id number] [place] [address] [place] ALP [Catalytic activity/Vol] 101 U/L Normal 34-123 [facility] Comment on above: Order Comment: Specimen Type: BLOOD SPEC IMENOrdering Facility: [facility] Address: [address] [place] [address] Performed By: #### 2 4325-3 ####[facility] LABCLIA [id number] [facility] [id number] [address] [place] ALT [Catalytic activity/Vol] 23 U/L Normal 7-38 [facility] Comment on above: Order Comment: Specimen Type: BLOOD SPEC IMENOrdering Facility: [facility] Address: [address] [place] [address] Performed By: #### 2 4325-3 ####[facility] LABCLIA [id number] [place] [address], [facility] [place] AST [Catalytic activity/Vol] 21 U/L Normal 13-35 [facility] Comment on above: Order Comment: Specimen Type: BLOOD SPEC IMENOrdering Facility: [facility] Address: [address] [place] [address] Performed By: #### 2 4325-3 ####[facility] LABCLIA [id number] [facility] [address], [place] [address] [place] Bilirubin [Mass/Vol] 0.3 mg/dL Normal 0.2-1.3 [facility] Comment on above: Order Comment: Specimen Type: BLOOD SPEC IMENOrdering Facility: [facility] Address: [address] [place] [address] Performed By: #### 2 4325-3 ####[facility] LABCL[facility] [id number] [facility] [place] [address] [place] Bilirubin.conjug ated [Mass/Vol] 0.1 mg/dL Normal <0.3 [facility] Comment on above: Order Comment: Specimen Type: BLOOD SPEC IMENOrdering Facility: [facility] Address: [address] [place] [address] Performed By: #### 2 4325-3 ####[facility] [id number] [facility] [address] [place] [address] [place] Protein [Mass/Vol] 7.7 g/dL Normal 6.3-8.0 [facility] Comment on above: Order Comment: Specimen Type: BLOOD SPEC IMENOrdering Facility: [facility] Address: [address] [place] [address] Performed By: #### 2 4325-3 ####[facility] LABCL[facility] [id number] [address] OF [facility] CNPNon 02-27-2025 CNPN Telephone (FAMWS) ROSEANN VIVEROS ([id number]) 1965 F [place] Date Time Provider Department 02/27/25 GARRETT VENTURA [facility] During your visit today, we recorded the following information about you: Radha Hector 02/27/2025 5:13 PM Signed -Patients states won't cover her test strips. Do we have any way of assisting the patient? She did state that the script has recently changed. Please Advise Sonja Verma MA 02/28/2025 9:04 AM Signed Insurance will only cover 1 time daily with one injections. Prescription revised. Sonja Verma MA Allergies As of Date: 02/27/2025 Noted Allergy Reaction BEE VENOM PROTEIN (HONEY BEE) 05/27/2018 7 - Swelling Date Reviewed: 01/18/2025 Reviewed by: Steve Hidalgo MA - Fully Assessed Reason for Visit: Medication Problem [65] Cmt: Test strips Visit Diagnosis:Controlled type 2 diabetes mellitus without complication, without long-term current use of insulin (HCC) [E11.9] Order(s):blood sugar diagnostic (BLOOD GLUCOSE TEST) test strip1 strip once daily. Test blood sugar(s) 1 time daily. Dx: Type 2 DM E11.9 Insulin: yesDisp: 100 stripRfl: 2 Prescriptions as of 03/05/2025 - blood sugar diagnostic (BLOOD GLUCOSE TEST) test strip 1 strip once daily. Test blood sugar(s) 1 time daily. Dx: Type 2 DM E11.9 Insulin: yes - triamcinolone (KENALOG) 0.025 % cream Apply to affected area two times a day. - atenolol (TENORMIN) 50 mg tablet Take 1 tablet by mouth once daily. - buPROPion XL (WELLBUTRIN XL) 150 mg 24 hr tablet Take 1 tablet by mouth once daily. - linaGLIPtin (TRADJENTA) 5 mg tab Take 1 tablet by mouth once daily. - albuterol HFA (PROVENTIL HFA, VENTOLIN HFA) 90 mcg/actuation inhaler Inhale 2 puffs as instructed every 6 hours as needed for wheezing/shortness of breath. - meclizine (ANTIVERT) 25 mg tab Take 1 tablet by mouth three times a day as needed. - methocarbamol (ROBAXIN-750) 750 mg tablet Take 1 tablet by mouth three times a day as needed. - Lancets 1 each two times a day. Use with blood glucose test once daily DX: E11.9 - insulin glargine (LANTUS SOLOSTAR U-100 INSULIN) 100 unit/mL (3 mL) Inject 12 Units subcutaneously every morning. - Blood-Glucose Meter 1 each once daily. DXE11.9 - nitroglycerin sublingual (NITROQUICK) 0.4 mg SL tablet DISSOLVE 1 (ONE) TABLET UNDER THE TONGUE NEEDED FOR CHEST PAIN. MAY REPEAT EVERY 5 MINUTES IF NEEDED; MAX OF 3 DOSES. IF NO RELIEF, COURTNEY - Insulin Selma, Disposable, (PEN NEEDLE) 32 gauge x 5/32 Inject 1 Each subcutaneously every 24 hours. Give with each insulin administration. - aspirin, enteric coated (ASPIRIN, ENTERIC COATED) 81 mg EC tablet Take 1 tablet by mouth once daily. - isosorbide mononitrate ER (IMDUR) 30 mg 24 hr tablet Take 1 tablet by mouth once daily. Take w/ 60 mg tablet for total daily dose of 90 mg. - isosorbide mononitrate ER (IMDUR) 60 mg 24 hr tablet Take 1 tablet by mouth once daily. Take w/ 30 mg tablet for total daily dose of 90 mg. - famotidine (PEPCID) 20 mg tablet Take 1 tablet by mouth two times a day. - atorvastatin (LIPITOR) 80 mg tablet Take 1 tablet by mouth once daily. - calcium-cholecalciferol, D3, (OSCAL+D 250) 250 mg-3.125 mcg (125 unit) per tablet Take 1 tablet by mouth two times a day. - Cholecalciferol, Vitamin D3, 25 mcg (1,000 unit) cap Take 1 capsule by mouth once daily. - empagliflozin (JARDIANCE) 10 mg tablet Take 1 tablet by mouth daily with breakfast. - sertraline (ZOLOFT) 100 mg tablet Take 1 tablet by mouth once daily. - Blood Pressure Monitor Use as directed, Monitor and arm cuff. Dx: I25.119, N18.30, I.10 Problem List As Of Date 02/27/2025 Noted Resolved Lumbago [M54.50] 10/02/2011 09/04/2016 Pain in joint, shoulder region [M25.519] 10/20/2011 09/04/2016 Disorders of bursae and tendons in shoulder reg*10/20/2011 09/04/2016 Diabetes mellitus (HCC) [E11.9] 03/25/2012 07/06/2020 Hyperlipidemia [E78.5] 03/25/2012 Chest pain [R07.9] 09/22/2012 07/06/2020 Numbness and tingling [R20.0, R20.2] 09/22/2012 09/04/2016 Lateral epicondylitis of elbow [M77.10] 06/19/2013 09/04/2016 Lumbar stenosis [M48.061] 06/08/2014 DDD (degenerative disc disease), lumbar [M51.36*06/08/2014 Carpal tunnel syndrome, bilateral [G56.03] 08/18/2016 Anxiety [F41.9] 08/31/2016 Coronary artery disease [I25.10] 08/31/2016 Radiculopathy, lumbar region [M54.16] 10/14/2016 Spondylolisthesis of lumbar region [M43.16] 10/14/2016 Spinal stenosis of lumbar region with neurogeni*06/01/2017 Controlled type 2 diabetes mellitus without com*04/10/2018 Spondylolisthesis [M43.10] 07/22/2018 Essential (primary) hypertension [I10] 02/22/2016 Diagnosed: 06/10/2023 Chronic renal disease, stage IV (HCC) [N18.4] 01/24/2024 Prescriptions ordered this encounter Disp Refills Start End BLOOD SUGAR DIAGNOSTIC STRIPS 100 * 2 03/05/2025 Route: OTH Sig (more content not included)... Normal [facility] CNCOon 02-21-2025 CNCO Letter Text Normal [facility] CNOVon 01-18-2025 CNOV Office Visit (PODIWS ) ROSEANN VIVEROS ([id number]) 1965 F [place] Date Time Provider Department 01/18/25 2:15 PM SILVIO COOK PODIWS During your visit today, we recorded the following information about you: Steve Hidalgo MA 01/18/2025 10:16 PM Signed Patient presents with: Left Foot - New, Diabetic Foot Care, Nail Fungus, Derm Problem Right Foot - New, Diabetic Foot Care, Nail Fungus, Derm Problem Discuss August 2024 nail culture results and tx plan. Patient reports home blood glucose reading at 195 mg/dL this am . BLADIMIR Talley Matthew 01/18/2025 2:33 PM Signed We discussed your thickened toenails and fungal infection: - Your fungal culture showed rare Trichophyton species and one colony of Dermatocus mold, which are likely contributing to the thickened appearance of your toenails. These findings are not harmful to your overall health but can affect the nails' appearance and structure. - You have multiple toenails affected (five on each foot) and some fingernails may also be involved, though this was not confirmed. - We discussed treatment options, and you decided to proceed with oral antifungal medication (Sporanox). - Take two capsules by mouth twice daily for 7 days, then stop. Repeat this cycle monthly for four months (7 days on, then stop for the rest of the month). - I have sent this prescription to [facility] in [place] with three refills. - You will not notice improvement until 6 to 9 months as the nails grow out. Continue trimming the nails during this time. - Potential side effects include upset stomach, rash, yellowing of the skin or eyes, or muscle soreness (due to interaction with Lipitor). If you experience any of these, stop the medication and contact me. - Pepcid may slightly reduce the effectiveness of the antifungal medication, but this is not a significant concern. - I ordered blood work to monitor your liver function before, during, and after treatment. Please complete the first set of labs today, and then again in 1, 2, and 3 months. I will notify you when the results are available, and you can start the medication once I confirm your blood work is normal. We discussed your diabetes and foot care: - Your A1c was 10.0 in July, and your blood sugar this morning was 195. We are working on improving your blood sugar control. - Avoid walking barefoot, wear good supportive shoes, and inspect your feet daily for any changes or injuries. - Continue wearing wider shoes to accommodate your bunion. If you have any questions or concerns, or if you experience any side effects from the medication, please contact me. Silvio Cook 01/18/2025 10:16 PM Signed Subjective Roseann Viveros is a 59-year-old female with a history of diabetes mellitus, presenting for follow-up of onychomycosis. Roseann was last seen on 09/18/2024 for thickened toenails and underwent a diabetic foot examination. A fungal culture was performed, revealing many septate hyphae on the fungal smear, rare Trichophyton species, and one colony of Dermatocus mold. Roseann reports that the thickened toenails are bothersome at times and has been managing them by keeping them trimmed. She also notes involvement of her fingernails, with one nail reportedly about to fall off. Roseann denies any underlying liver disease or impairment and does not consume alcohol. She is currently on Lipitor and calcium, and occasionally takes Pepcid. Her most recent HbA1c was 10.0% on 08/02/2024, and her blood glucose level this morning was 195 mg/dL. Liver function tests from January 2024 showed normal results: AST 14 U/L, ALT 17 U/L, and alkaline phosphatase 72 U/L. 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 28 capsule 3 albuterol HFA (PROVENTIL HFA, VENTOLIN HFA) 90 mcg/actuation inhaler Inhale 2 puffs as instructed every 6 hours as needed for wheezing/shortness of breath. 18 g 1 meclizine (ANTIVERT) 25 mg tab Take 1 tablet by mouth three times a day as needed. 90 tablet 1 methocarbamol (ROBAXIN-750) 750 mg tablet Take 1 tablet by mouth three times a day as needed. 90 tablet 2 Lancets 1 each two times a day. Use with blood glucose test once daily DX: E11.9 60 each 2 insuli (more content not included)... Normal [facility] Hepatic function 2000 panelO rdered By: Dianna Macias on 01-18-2025 Albumin [Mass/Vol] 4.4 g/dL 3.9 - 4.9 g/dL [facility] ALP [Catalytic activity/Vol] 87 U/L 34 - 123 U/L [facility] ALT [Catalytic activity/Vol] 14 U/L 7 - 38 U/L [facility] AST [Catalytic activity/Vol] 15 U/L 13 - 35 U/L [facility] Bilirubin [Mass/Vol] 0.3 mg/dL 0.2 - 1.3 mg/dL [facility] Bilirubin.conjug ated [Mass/Vol] 0.1 mg/dL NINF - 0.3 mg/dL [facility] Interpretation and review of laboratory results Normal [facility] Protein [Mass/Vol] 7.4 g/dL 6.3 - 8.0 g/dL [facility] Hepatic function 2000 panelo n 01-18-2025 Albumin [Mass/Vol] 4.4 g/dL Normal 3.9-4.9 [facility] Comment on above: Order Comment: Specimen Type: BLOOD SPEC IMENOrdering Facility: [facility] Address: [address] [place] [address] Performed By: #### 2 4325-3 ####[facility] [id number] [place] [address] [place] ALP [Catalytic activity/Vol] 87 U/L Normal 34-123 [facility] Comment on above: Order Comment: Specimen Type: BLOOD SPEC IMENOrdering Facility: [facility] Address: [address] [place] [address] Performed By: #### 2 4325-3 ####[facility]ILL[facility] [id number] [place] [address] [place] ALT [Catalytic activity/Vol] 14 U/L Normal 7-38 [facility] Comment on above: Order Comment: Specimen Type: BLOOD SPEC IMENOrdering Facility: [facility] Address: [address] [place] [address] Performed By: #### 2 4325-3 ####[facility] [id number] [place] [address] [place] AST [Catalytic activity/Vol] 15 U/L Normal 13-35 [facility] Comment on above: Order Comment: Specimen Type: BLOOD SPEC IMENOrdering Facility: [facility] Address: [address] [place] [address] Performed By: #### 2 4325-3 ####[facility] [id number] [place] [address] [place] Bilirubin [Mass/Vol] 0.3 mg/dL Normal 0.2-1.3 [facility] Comment on above: Order Comment: Specimen Type: BLOOD SPEC IMENOrdering Facility: [facility] Address: [address] [place] [address] Performed By: #### 2 4325-3 ####[facility] [id number] [place] [address] [place] Bilirubin.conjug ated [Mass/Vol] 0.1 mg/dL Normal <0.3 [facility] Comment on above: Order Comment: Specimen Type: BLOOD SPEC IMENOrdering Facility: [facility] Address: [address] [place] [address] Performed By: #### 2 4325-3 ####[facility] [id number] [address] [place] [facility] Protein [Mass/Vol] 7.4 g/dL Normal 6.3-8.0 [facility] Comment on above: Order Comment: Specimen Type: BLOOD SPEC IMENOrdering Facility: [facility] Address: [address] [place] [address] Performed By: #### 2 4325-3 ####[facility] [id number] [address] CNOVon 12-20-2024 CNOV Office Visit (PNMDNA ) ROSEANN VIVEROS ([id number]) 1965 F [place] Date Time Provider Department 12/20/24 3:30 PM VINCENT VALLE PNMDNA During your visit today, we recorded the following information about you: Pulse Weight Height 65/minute 58.1 kg 1.575 m Vincent Valle MD 12/20/2024 3:36 PM Signed [facility] (ESTABLISHED PATIENT) Date: December 20, 2024 - 3:02 PM Chief Complaint: Chronic back pain __ SUBJECTIVE: Ms. Viveros presents to the [facility] for a follow up appointment regarding acute flareup of chronic back pain. She states that since the last visit symptoms have been persistent and with exacerbation. She denies any recent injuries or trauma. She has had episodic flareup of back pain.. The pain is located in the bilateral lumbar region and gluteal region and occasionally radiates to bilateral lower extremities. // The pain is described as aching and sharp and is rated as 7 on a scale of 0-10. The patient Reports cramping in legs. Symptoms interfere with physical activity. The pain is exacerbated by unable to pinpoint exacerbating factors/positions. The pain is mitigated by medications and ice . She is currently receiving medications through the [facility]. She is not having difficulty with her PMC medications. The medications are effective. REVIEW OF SYSTEMS: Constitutional: (-) Fever (-) Night Sweats (-) Weight Gain (-) Weight Loss (-) Fatigue Cardiovascular: (-) Chest Pain (-) Palpitations (+) Lightheadedness (-) Swelling of Ankles (-) Hx Heart Surgery Respiratory: (+) Shortness of Breath (-) Cough (-) Wheezing (-) Snoring Gastrointestinal: (-) Incontinence (-) Abdominal Pain (-) Diarrhea (+) Constipation (-) Nausea/Vomiting (-) Heart Burn Endocrine: (-) Thyroid Disorder (+) Diabetes Hematologic: (-) Prolonged Bleeding (+) Easy Bruising Genitourinary: (-) Incontinence (-) Frequency (-) Urinary Urgency Skin: (+) Rashes (-) Itching (-) Other Lesions Neurologic: (+) Headache (-) Double Vision (-) Confusion (-) Paralysis Psychiatric: (+) Depression (+) Anxiety (-) Delusions (-) Hallucinations (-) Personal History of Alcohol or Substance Abuse (+) Family History of Alcohol or Substance Abuse __ PAST MEDICAL HISTORY Diagnosis Date Anxiety 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 08/31/2016 Depression Diabetes mellitus (HCC) 2010 No nephropathy, neuropathy, retinopathy DJD (degenerative joint disease) of lumbar spine Hyperlipidemia 2011 Low back pain [phone] Unspecified , without mention of complication, unspecified (HCC) 2 Miscarriage's PAST SURGICAL HISTORY Procedure Laterality Date DELIVERY ONLY , low cervical, (2) DILATION AND CURETTAGE DXAND/THER NONOBSTETRIC Dilation AND curettage x 2 LIGATE FALLOPIAN TUBE 2002 NEUROPLASTY AND/TRANSPOS MEDIAN NRV CARPAL TUNNE Bilateral 09/18/2016 THYROID FINE NEEDLE ASPIRATION Right 07/07/2021 THYROID FINE NEEDLE ASPIRATION 08/01/2021 TONSILLECTOMY AND ADENOIDECTOMY ALLERGIES Allergen Reactions Bee Venom Protein (* Swelling Current Outpatient Medications Medication Sig Lancets 1 each two times a day. Use with blood glucose test once daily DX: E11.9 insulin glargine (LANTUS SOLOSTAR U-100 INSULIN) 100 unit/mL (3 mL) Inject 12 Units subcutaneously every morning. (Patient taking differently: Inject 15 Units subcutaneously every morning.) blood sugar diagnostic (BLOOD GLUCOSE TEST) test strip Test blood sugar(s) 1 times daily. Dx: Type 2 DM - Controlled E11.9 Insulin: No Blood-Glucose Meter 1 each once daily. DXE11.9 methocarbamol (ROBAXIN-750) 750 mg tablet Take 1 tablet by mouth three times a day as needed. nitroglycerin sublingual (NITROQUICK) 0.4 mg SL tablet DISSOLVE 1 (ONE) TABLET UNDER THE TONGUE NEEDED FOR CHEST PAIN. MAY REPEAT EVERY 5 MINUTES IF NEEDED; MAX OF 3 DOSES. IF NO RELIEF, COURTNEY Insulin Selma, Disposable, (PEN NEEDLE) 32 gauge x /32 Inject 1 Each subcutaneously every 24 hours. Give with each insulin administration. blood sugar diagnostic (TRUE METRIX GLUCOSE TEST STRIP) test strip testing once daily DX E11.9 Insulin No albuterol HFA (PROVENTIL HFA, VENTOLIN HFA) 90 mcg/actuation inhaler Inhale 2 Puffs as instructed every 6 hours as needed for wheezing/shortness of breath. aspirin, enteric coated (ASPIRIN, ENTERIC COATED) 81 mg EC tablet Take 1 tablet by mouth once daily. isosorbide mononitrate ER (IMDUR) 30 mg 24 hr tablet Take 1 tablet by mouth once daily. Take w/ 60 mg tablet for total daily dose of 90 mg. isosorbide mononitrate ER (IMDUR) 60 mg 24 hr tablet Take 1 ta (more content not included)... Normal [facility] CNOVon 12-18-2024 CNOV Office Visit (ENWSTR ) ROSEANN VIVEROS ([id number]) 1965 F [facility] Date Time Provider Department 12/18/24 3:40 PM DAKSHA ANTON ENWSTR During your visit today, we recorded the following information about you: Pulse Respiration Blood pressure Weight 67/minute 18/minute 108/72 58.2 kg Height 1.575 m Daksha Anton MD 12/28/2024 7:47 PM Signed [facility] Follow up note Referred by: Dr. Garrett Ventura MD (PCP) Chief complaint: Poorly controlled Type 2 DM My final recommendations will be communicated back to the requesting physician by way of shared medical record or letter via US mail. History of Present Illness: Roseann Viveros is a 59-year-old female with a history of DM, HTN, HLD, lumbar stenosis, and CKD, presenting for follow up of DM type 2 Initial visit 09/15/24 CHARLENE 11/14/24 -Initially diagnosed: 22 years ago, following the of her youngest child. Denied any surgeries on pancreas, pancreatitis in the past . Symptoms No recent weight loss; desires weight reduction. Reports polyuria; suspects current yeast infection with dysuria and pruritus. Complications: Cardiovascular -- Yes HTN, HLP, CAD Has a follow-up appointment with a extractions technologist on Wednesday to discuss potential cardiac catheterization due to dyspnea. Statin Use -- yes atorvastatin 80 mg daily Retinopathy -- no Last PRATEEK/Retina Eval: Last eye exam approximately one year ago; reports no retinopathy- underwent laser surgery on both eyes, improving vision. Advised to schedule appt but has not completed this yet Nephropathy -- CKD stage 3b NEPTALI/ARB Use -- no Polyneuropathy -- Occasional paresthesia in feet; no recent episodes. Foot Exam: none - done on initial office visit with me Obesity -- No Other -- No -Family history of diabetes mellitus: in mother () and brother (complicated by open heart surgery and hypoglycemic car accident). Personal history of DKA or HHS-- No Personal history of pancreatitis-- No History of alcohol consumption--No Family history of thyroid cancer-- No Personal history of Urinary tract infections -- Reports polyuria; suspects current yeast infection with dysuria and pruritus. Diabetic education class: has completed with [facility] at [place] on 09/26/2024 . Diabetes Medications -Current regimen: Tradjenta 5 mg and Jardiance 10 mg, 12 units lantus daily . -Misses doses: None -Adverse medication effects: none Reports being scared of needles, and does not prefer using insulin -Previously Used DM Meds: Yes Metformin - was on it for almost 20 years, had no side effects, was discontinued Glimepiride- d/cd due to unknown reasons per patient . Blood sugars -Self monitoring of blood sugar via fingerstick: advised twice daily, but has not been doing as such. - we discussed about CGM on initial visit, but she is worried she will not be able to afford it, so we decided to do Considers blood glucose levels above 200 mg/dL as high and below 70-75 mg/dL as low. -Brought blood glucose log for review: yes -BG log reviewed: yes Interval history: 12/18/2024 She is checking blood glucose with finger sticks twice daily as instructed. Most of the sugars are in 180s-240s in November - only three BG readings in 120s, two times in the evening and one time in the morning in the month of November . Hypoglycemia -Hypoglycemic episodes: no recent episodes -Frequency and timing of hypoglycemia: N/A -Hypoglycemia awareness: yes, feels diaphoretic Manages high blood glucose with crackers and low blood glucose with candy. . 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 -Diet: Breakfast: Lunch: Dinner: Typically eats one to two meals per day, often skipping breakfast. Eats dinner with son and his family- reports daughter in law is not making much pasta now ROS: SYSTEMIC: Denies fatigue, malaise, energy, Weight has been stable, heat/cold intolerance, polydipsia EYES: Denies blurring of vision, diplopia, pain/discomfort, excessive tearing, swelling of eye lids, bulging, redness, dryness, NECK: Denies goiter, lump, pain/discomfort, dysphagia, hoarseness, sore thorat RESPIRATORY: Denies dyspnea at rest/with exertion, orthopnea cough, pleuritic chest pain, snoring, apnea episodes CARDIOVASCULAR: Chest pain, palpitations, irregular heart beats GASTRO-INTESTINAL:Denies Nausea, vomiting, abdominal pain, hyperdefecation, rectal bleeding NEUROLOGICAL: Denies dizziness, lightheadedness, weakness, cramping, numbness/tingling of extremities MUSCULOSKELETAL: Denies joint pain, stiffness, swelling, cramping or weakness. GENITOURINARY: Denies polyuria, recurrent UTI/yeast infections SKIN: Denies dryness, brittle nails, hair loss, alopecia, excessive sweating, flushing, darkening of skin PS (more content not included)... Normal [facility] 11-15-2024 [facility] Telephone (SHERRY) ROSEANN VIVEROS ([id number]) 1965 F [place] Date Time Provider Department [facility] During your visit today, we recorded the following information about you: Carmen Cartagena LPN 11/15/2024 3:53 PM Signed Patient calling she was seen in [facility] for rash on 10/31 on her right breast and radiates around to her mid back area. Patient said not doing any better she had taken medrol dose pack and other rx she was given. She said was blistery and she scratched some areas open, she said it is painful. 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 Patient plans to have her son take her to the express care again this evening. Allergies As of Date: 11/15/2024 Noted Allergy Reaction BEE VENOM PROTEIN (HONEY BEE) 05/27/2018 7 - Swelling Date Reviewed: 11/14/2024 Reviewed by: Sonja Verma MA - Fully Assessed Reason for Visit: Patient Update [1234] Prescriptions as of 11/22/2024 - cetirizine (ZYRTEC) 10 mg tablet Take 1 tablet by mouth once daily. - blood sugar diagnostic (BLOOD GLUCOSE TEST) test strip Test blood sugar(s) 1 times daily. Dx: Type 2 DM - Controlled E11.9 Insulin: No - Blood-Glucose Meter 1 each once daily. DXE11.9 - Lancets Use with blood glucose test once daily DX: E11.9 - methocarbamol (ROBAXIN-750) 750 mg tablet Take 1 tablet by mouth three times a day as needed. - nitroglycerin sublingual (NITROQUICK) 0.4 mg SL tablet DISSOLVE 1 (ONE) TABLET UNDER THE TONGUE NEEDED FOR CHEST PAIN. MAY REPEAT EVERY 5 MINUTES IF NEEDED; MAX OF 3 DOSES. IF NO RELIEF, COURTNEY - insulin glargine (LANTUS SOLOSTAR U-100 INSULIN) 100 unit/mL (3 mL) Inject 8 Units subcutaneously every 24 hours. - Insulin Selma, Disposable, (PEN NEEDLE) 32 gauge x 5/32 Inject 1 Each subcutaneously every 24 hours. Give with each insulin administration. - blood sugar diagnostic (TRUE METRIX GLUCOSE TEST STRIP) test strip testing once daily DX E11.9 Insulin No - albuterol HFA (PROVENTIL HFA, VENTOLIN HFA) 90 mcg/actuation inhaler Inhale 2 Puffs as instructed every 6 hours as needed for wheezing/shortness of breath. - aspirin, enteric coated (ASPIRIN, ENTERIC COATED) 81 mg EC tablet Take 1 tablet by mouth once daily. - isosorbide mononitrate ER (IMDUR) 30 mg 24 hr tablet Take 1 tablet by mouth once daily. Take w/ 60 mg tablet for total daily dose of 90 mg. - isosorbide mononitrate ER (IMDUR) 60 mg 24 hr tablet Take 1 tablet by mouth once daily. Take w/ 30 mg tablet for total daily dose of 90 mg. - meclizine (ANTIVERT) 25 mg tab Take 1 tablet by mouth three times a day as needed. - Lancets Test blood sugar(s) One time daily. Dx: Type 2 DM - Controlled E11.9 Insulin: No. - famotidine (PEPCID) 20 mg tablet Take 1 tablet by mouth two times a day. - atorvastatin (LIPITOR) 80 mg tablet Take 1 tablet by mouth once daily. - calcium-cholecalciferol, D3, (OSCAL+D 250) 250 mg-3.125 mcg (125 unit) per tablet Take 1 tablet by mouth two times a day. - Cholecalciferol, Vitamin D3, 25 mcg (1,000 unit) cap Take 1 capsule by mouth once daily. - empagliflozin (JARDIANCE) 10 mg tablet Take 1 tablet by mouth daily with breakfast. - sertraline (ZOLOFT) 100 mg tablet Take 1 tablet by mouth once daily. - atenolol (TENORMIN) 50 mg tablet Take 1 tablet by mouth once daily. - linaGLIPtin (TRADJENTA) 5 mg tab Take 1 tablet by mouth once daily. - buPROPion XL (WELLBUTRIN XL) 150 mg 24 hr tablet Take 1 tablet by mouth once daily. - Blood Pressure Monitor Use as directed, Monitor and arm cuff. Dx: I25.119, N18.30, I.10 Problem List As Of Date 11/15/2024 Noted Resolved Lumbago [M54.50] 10/02/2011 09/04/2016 Pain in joint, shoulder region [M25.519] 10/20/2011 09/04/2016 Disorders of bursae and tendons in shoulder reg*10/20/2011 09/04/2016 Diabetes mellitus (HCC) [E11.9] 03/25/2012 07/06/2020 Hyperlipidemia [E78.5] 03/25/2012 Chest pain [R07.9] 09/22/2012 07/06/2020 Numbness and tingling [R20.0, R20.2] 09/22/2012 09/04/2016 Lateral epicondylitis of elbow [M77.10] 06/19/2013 09/04/2016 Lumbar stenosis [M48.061] 06/08/2014 DDD (degenerative disc disease), lumbar [M51.36*06/08/2014 Carpal tunnel syndrome, bilateral [G56.03] 08/18/2016 Anxiety [F41.9] 08/31/2016 Coronary artery disease [I25.10] 08/31/2016 Radiculopathy, lumbar region [M54.16] 10/14/2016 Spondylolisthesis of lumbar region [M43.16] 10/14/2016 Spinal stenosis of lumbar region with neurogeni*06/01/2017 Controlled type 2 diabetes mellitus without com*04/10/2018 Spondylolisthesis [M43.10] 07/22/2018 Essential (primary) hypertension [I10] 02/22/2016 Diagnosed: 06/10/2023 Chronic renal disease, stage IV (HCC) [N18.4] 01/24/2024 Encounter Status:Closed by CARMEN CARTAGENA on 11/22/24 [facility] CNOVon 11-14-2024 CNOV Office Visit (ENWSTR ) NATIVIDADROSEANN ALBA Davian ([id number]) 1965 F [place] Date Time Provider Department 11/14/24 4:20 PM DAKSHA ANTON ENWSTR During your visit today, we recorded the following information about you: Temperature Pulse Respiration Weight 97 degrees 76/minute 12/minute 58.7 kg Daksha Anton MD 11/14/2024 6:58 PM Addendum [facility] Follow up note Referred by: Dr. Garrett Ventura MD (PCP) Chief complaint: Poorly controlled Type 2 DM My final recommendations will be communicated back to the requesting physician by way of shared medical record or letter via US mail. History of Present Illness: Roseann Viveros is a 59-year-old female with a history of DM, HTN, HLD, lumbar stenosis, and CKD, presenting for follow up of DM type 2 Initial visit/CHARLENE 09/15/24 -Initially diagnosed: 22 years ago, following the of her youngest child. Denied any surgeries on pancreas, pancreatitis in the past . Symptoms No recent weight loss; desires weight reduction. Reports polyuria; suspects current yeast infection with dysuria and pruritus. Interval history: 11/14/24: She reports rash and shooting pain on skin of right breast. She went to express care and was given medrol dose pack, zyrtec for contact dermatitis on 10/31/24, with no much improvement Again reports sugars going to 400 mg/dl on very few occasions, but going down after few hours eating crackers Reports compliance with lantus Complications: Cardiovascular -- Yes HTN, HLP, CAD Has a follow-up appointment with a extractions technologist on Wednesday to discuss potential cardiac catheterization due to dyspnea. Statin Use -- yes atorvastatin 80 mg daily Retinopathy -- no Last PRATEEK/Retina Eval: Last eye exam approximately one year ago; reports no retinopathy- underwent laser surgery on both eyes, improving vision. Advised to schedule appt but has not completed this yet Nephropathy -- CKD stage 3b NEPTALI/ARB Use -- no Polyneuropathy -- Occasional paresthesia in feet; no recent episodes. Foot Exam: none - done on initial office visit with me Obesity -- No Other -- No -Family history of diabetes mellitus: in mother () and brother (complicated by open heart surgery and hypoglycemic car accident). Personal history of DKA or HHS-- No Personal history of pancreatitis-- No History of alcohol consumption--No Family history of thyroid cancer-- No Personal history of Urinary tract infections -- Reports polyuria; suspects current yeast infection with dysuria and pruritus. Diabetic education class: has completed with [facility] at [place] on 09/26/2024 . Diabetes Medications -Current regimen: Tradjenta 5 mg and Jardiance 10 mg, 8 units lantus daily . -Misses doses: None -Adverse medication effects: none Reports being scared of needles, and does not prefer using insulin -Previously Used DM Meds: Yes Metformin - was on it for almost 20 years, had no side effects, was discontinued Glimepiride- d/cd due to unknown reasons per patient . Blood sugars -Self monitoring of blood sugar via fingerstick: advised twice daily, but has not been doing as such. - we discussed about CGM on initial visit, but she is worried she will not be able to afford it, so we decided to do Considers blood glucose levels above 200 mg/dL as high and below 70-75 mg/dL as low. -Brought blood glucose log for review: No -BG log reviewed: no Could not give much data verbally either today . Hypoglycemia -Hypoglycemic episodes: no recent episodes -Frequency and timing of hypoglycemia: N/A -Hypoglycemia awareness: yes, feels diaphoretic Manages high blood glucose with crackers and low blood glucose with candy. . 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 -Diet: Breakfast: Lunch: Dinner: Typically eats one to two meals per day, often skipping breakfast. ROS: SYSTEMIC: Denies fatigue, malaise, energy, Weight has been stable, heat/cold intolerance, polydipsia EYES: Denies blurring of vision, diplopia, pain/discomfort, excessive tearing, swelling of eye lids, bulging, redness, dryness, NECK: Denies goiter, lump, pain/discomfort, dysphagia, hoarseness, sore thorat RESPIRATORY: Denies dyspnea at rest/with exertion, orthopnea cough, pleuritic chest pain, snoring, apnea episodes CARDIOVASCULAR: Chest pain, palpitations, irregular heart beats GASTRO-INTESTINAL:Denies Nausea, vomiting, abdominal pain, hyperdefecation, rectal bleeding NEUROLOGICAL: Denies dizziness, lightheadedness, weakness, cramping, numbness/tingling of extremities MUSCULOSKELETAL: Denies joint pain, stiffness, swelling, cramping or weakness. GENITOURINARY: Denies polyuria, recurrent UTI/yeast infections SKIN: Denies dryness, brittle nails, hair loss, alopecia, excessive sweating, flus (more content not included)... Normal [facility] HEMOGLOBIN A1C (POC)on 11-14 HbA1c (Bld) [Mass fraction] 10.4 % Abnormal 4.3 - 5.6 % [facility] Comment on above: Location:[facility], [address], [place], [address] Point of care (POC) Hemoglobin A1c (HGBA1C) testing is intended to assess glucose control and provide a management tool for patients known to have diabetes and their healthcare providers. Target HGBA1C levels may depend on specific clinical circumstances. POC HGBA1C is not intended for use as a diagnostic or screening test; laboratory-based testing should be used for diagnostic purposes. The following information is supplemental and may not be applicable to specific diabetes management situations: The POC device temporary staff accountant provides a normal range of 4.2% to 6.5% for the HGBA1C POC test. However, the [place] [employer] guidelines indicate that patients with HGBA1C in the range of 5.7% to 6.4% are at increased risk for development of diabetes and that intervention by lifestyle modification may be beneficial. A HGBA1C level greater than or equal to 6.5% is considered diagnostic of diabetes, pending confirmatory testing. Use of HGBA1C testing to evaluate glucose control may not be appropriate for patients with hemoglobin variants or other conditions (e.g. anemia) that alter red blood cell lifespan. Interpretation and review of laboratory results Abnormal [facility] CNOVon 10-31-2024 CN Office Visit (UCWSTR ) ROSEANN VIVEROS ([id number]) 1965 F [facility] Date Time Provider Department 10/31/24 5:00 PM MANI MEDINA [facility] During your visit today, we recorded the following information about you: Temperature Pulse Respiration Blood pressure 98.4 degrees 70/minute 16/minute 109/67 Weight 54.4 kg Mani Medina APRN.STAVE SAW OPERATOR 10/31/2024 4:35 PM Signed CONTACT DERMATITIS What is contact dermatitis? Contact dermatitis is inflammation of the skin (rash) that may result when the skin is touched by irritants or substances that cause an allergic reaction. Contact dermatitis can occur from exposure to many different compounds found both in the home and at work. There are two types of contact dermatitis: 1. Allergic contact dermatitis -- occurs when skin, which has become sensitized to a certain substance (allergen), comes in contact with that substance again 2. Irritant contact dermatitis -- occurs when the skin is exposed to a mild irritant (such as detergent or solvents) repeatedly over a long period of time or a strong irritant (such as acid, alkali, solvent, strong soap or detergent), which can cause immediate skin damage Common sources of allergic contact dermatitis Not everyone reacts to allergens. However, some people will react to an allergen which they had previously tolerated for many years. Skin can become allergic to a substance after many exposures or after just one exposure. Most people will have an allergic reaction to poison freya after one exposure, for instance. This is a delayed skin reaction that typically develops 12 to 72 hours after exposure. Common sources of allergic contact dermatitis include: Nickel (a common metal used in jewelry) and other metals. Nickel has been reported to cause contact dermatitis in up to 10 percent of women. Gold is also becoming a widespread allergen. This type of allergic contact dermatitis can begin with intermittent rashes under earrings or other jewelry. Fragrances -- for example, those found in perfumes, soaps, lotions, and shampoos Cosmetics Topical medications such as antibiotics or anti-itch preparations -- these cause worsening of the problem and are often misinterpreted as infection Preservatives, which keep topical products from spoiling Sunscreens -- commonly cause a hive-like rash that can appear hours or days after sun exposure Rubber ingredients -- common source of work-related allergy. Rubber can cause immediate allergic reactions, such as itching, burning, or welts. Some people experience itching and tearing eyes or even shortness of breath. Common sources of irritant contact dermatitis Detergents, soaps, kettle operator head, waxes and chemicals are substances that can irritate the skin. They can wear down the oily, protective layer on skin's surface and lead to irritant contact dermatitis. Irritant contact dermatitis is most common among people who regularly work with strong chemicals, such as restaurant, maintenance, and chemical workers. Are certain occupations at greater risk? Some occupations have more exposure to chemicals or substances that can result in sensitization and cause allergic contact dermatitis. These include dental workers, health care workers, florists, hairdressers, machinists, and photographers among many others. What are the symptoms of contact dermatitis? Contact dermatitis symptoms can range from mild redness and dryness to severe pain and peeling that can be disabling. Allergic contact dermatitis Reddening of skin (either in patches or all over the body) Intermittent dry, scaly patches of skin Blisters that ooze Burning or itching that is usually intense without visible skin sores (lesions) Swelling in the eyes, face, and genital areas (severe cases) Hives Sun sensitivity Darkened, leathery and cracked skin Allergic contact dermatitis can be very difficult to distinguish from other rashes. Irritant contact dermatitis Mild swelling of skin Stiff, tight feeling skin Dry, cracking skin Blisters Painful ulcers on the skin Symptoms vary depending on the cause of dermatitis. How can I know if I have contact dermatitis? If you have a skin rash that won't go away, visit your health care provider. If he or she suspects allergic contact dermatitis, patch testing may be performed. In this test, small samples of chemicals are placed on an area of skin to see if a rash develops. There are no needles or pricking of the skin. The areas of the skin are then evaluated after 48 hours and again at 96 hours or one week. The advantage of patch testing is that the allergens can be identified and your health care provider can effectively treat the rash. This avoids the need for chronic medications that have many potential side effects. There are no tests that can be done for irritant contact derm (more content not included)... Normal [facility] US CAROTID ARTERIES [facility]IEW VAS LABon 10-20-2024 CAROTID ARTERIES [facility] Non-Invasive Vascular Laboratory [facility] Carotid Duplex Bilateral/Complete Date of service/time: 10/20/2024 8:07:36 AM Name: MRS. ROSEANN VIVEROS Date of : 1965 Age: 59 years Gender: F Clinical Indication Follow-up study on a patient with known carotid disease. TECHNIQUE -------- A carotid duplex ultrasound examination was performed, including grayscale imaging and color Doppler and spectral Doppler examination of the below mentioned arteries. FINDINGS -------- RIGHT SIDE Common carotid artery: Origin: PSV: 82 cm/s. EDV: 11 cm/s. Proximal: PSV: 80 cm/s. EDV: 21 cm/s. Mid: PSV: 68 cm/s. EDV: 24 cm/s. Distal: PSV: 53 cm/s. EDV: 19 cm/s. Mild heterogeneous plaque at distal. Internal carotid artery: Origin: PSV: 43 cm/s. EDV: 12 cm/s. Proximal: PSV: 57 cm/s. EDV: 18 cm/s. Mid: PSV: 59 cm/s. EDV: 26 cm/s. Distal: PSV: 68 cm/s. EDV: 19 cm/s. ICA/CCA Ratio: 1.1 External carotid artery: Proximal: PSV: 73 cm/s. EDV: 15 cm/s. Subclavian artery: Proximal: PSV: 85 cm/s. EDV: 0 cm/s. Innominate artery: PSV: 60 cm/s. EDV: 0 cm/s. Vertebral artery: PSV: 50 cm/s. EDV: 14 cm/s. LEFT SIDE Common carotid artery: Proximal: PSV: 80 cm/s. EDV: 18 cm/s. Mid: PSV: 82 cm/s. EDV: 23 cm/s. Distal: PSV: 69 cm/s. EDV: 20 cm/s. Internal carotid artery: Origin: PSV: 51 cm/s. EDV: 14 cm/s. Proximal: PSV: 76 cm/s. EDV: 32 cm/s. Mid: PSV: 92 cm/s. EDV: 28 cm/s. Distal: PSV: 67 cm/s. EDV: 26 cm/s. Mild heterogeneous plaque at proximal. ICA/CCA Ratio: 1.1 External carotid artery: Proximal: PSV: 109 cm/s. EDV: 16 cm/s. Subclavian artery: Proximal: PSV: 130 cm/s. EDV: 0 cm/s. Vertebral artery: PSV: 70 cm/s. EDV: 17 cm/s. IMPRESSION Please note: the new carotid interpretation criteria are used as recommended by [facility]. When compared with the prior study, of 02/17/2022 no significant change is noted on the right side and no significant change is noted on the left side. RIGHT SIDE Incidentally detected thyroid nodule measuring 1.10 cm in maximum diameter; dedicated thyroid ultrasound is recommended. Common carotid artery: Plaque visualized without evidence of hemodynamically significant stenosis. Internal carotid artery: Normal study. External carotid artery: Patent. Vertebral artery: Patent and antegrade flow noted. Subclavian artery: Patent. LEFT SIDE Incidentally detected thyroid nodule measuring 0.90 cm in maximum diameter; dedicated thyroid ultrasound is recommended. Common carotid artery: Patent. Internal carotid artery: <50% stenosis consistent with mild carotid artery disease. External carotid artery: Patent. Vertebral artery: Patent and antegrade flow noted. Subclavian artery: Patent. Technologist: Alison Barajas BA, RVT Ordering physician: SAKSHI LI Interpreting physician: Jennifer Soriano MD Final CC [facility] Image : [id number] SISUID See Link below for Image Normal [facility] US THYROID/PARATHYROIDon US THYROID/PARATHYR OID * * *Final Report* * * DATE OF EXAM: Oct 20 2024 7:35AM U 1048 - US THYROID/PARATHYROID / PROCEDURE REASON: Thyroid fullness * * * * Physician Interpretation * * * * EXAMINATION: THYROID ULTRASOUND CLINICAL HISTORY: Thyroid fullness TECHNIQUE: Sonography and Doppler imaging of the thyroid was performed. Images were obtained and stored in a permanent archive. MQ: UST_1 COMPARISON: 06/19/2021 RESULT: Right Lobe: 4.3 x 1.5 x 1.9 cm (previously 4.4 x 2 x 2.1 cm on 06/19/2021); homogeneous echogenicity, expected vascular flow. Left Lobe: 3.4 x 1.3 x 1.3 cm (3.5 x 1.7 x 1 cm on 06/19/2021); homogeneous echogenicity, expected vascular flow. Isthmus: 0.2 cm The most suspicious thyroid nodule(s) (up to four) as below: NODULE 1: Location: Right lower pole Size: 1.4 x 0.9 x 0.9 cm (previously 2.9 x 0.9 x 2 cm) Characteristics: Composition: Solid or almost completely solid, 2 points Echogenicity: Hypoechoic, 2 points Shape: [id number], 0 points Margin: Smooth, 0 points Echogenic foci (add points for all that apply): Macrocalcifications, 1 point Internal vascularity: present Interval growth: No significant growth given differences in technique TI-RADS Category: TR4 ACR Recommendation: TI-RADS 4 nodule. Follow up imaging in 1, 2, 3 and 5 years is advised. NODULE 2: Location: Left mid Size: 1.2 x 0.5 x 1.1 cm (previously 1 x 0.5 x 1 cm) Characteristics: Composition: Solid or almost completely solid, 2 points Echogenicity: Hypoechoic, 2 points Shape: Vwkeo-[id number]-[id number], 0 points Margin: Smooth, 0 points Echogenic foci (add points for all that apply): None, 0 points Internal vascularity: present Interval growth: No significant growth given differences in technique TI-RADS Category: TR4 ACR Recommendation: TI-RADS 4 nodule. Follow up imaging in 1, 2, 3 and 5 years is advised. IMPRESSION: Mildly enlarged right thyroid lobe, although decreased in size since 06/19/2021. Left thyroid lobe is normal in size. Thyroid nodules are present. Surveillance imaging is recommended for one or more nodules as detailed in the synoptic report. TI-RADS Category: TR4 ACR Recommendation: TI-RADS 4 nodule. Follow up imaging in 1, 2, 3 and 5 years is advised. ACR recommendations are strictly based on the size and imaging appearance at the time of the exam and do not consider stability or previous biopsy results. Barista: PSCB Transcribe Date/Time: Oct 22 2024 10:30A Dictated by : HIPOLITO DONAHUE MD This examination was interpreted and the report reviewed and electronically signed by: HIPOLITO DONAHUE MD on Oct 22 2024 10:36AM EST [id number] Normal [facility] Cleo 10-13-2024 BERTHAN Telephone (FAMPWS) ROSEANN VIVEROS ([id number]) 1965 F [facility] Date Time Provider Department 10/13/24 GARRETT VENTURA During your visit today, we recorded the following information about you: Jackie Cruz LPN 10/13/2024 11:30 AM Signed Patient called asking for a new glucose meter and supplies be sent to pharmacy. Would like it sent to [facility]. Francy Palacios, YIN.STAVE SAW OPERATOR 10/13/2024 3:18 PM Signed The following approved medication requests have been transmitted electronically. Requested Prescriptions Signed Prescriptions Disp Refills blood sugar diagnostic (BLOOD GLUCOSE TEST) test strip 50 strip 11 Sig: Test blood sugar(s) 1 times daily. Dx: Type 2 DM - Controlled E11.9 Insulin: No Authorizing Provider: FRANCY PALACIOS Blood-Glucose Meter 1 each 0 Si each once daily. DXE11.9 Authorizing Provider: FRANCY PALACIOS Lancets 100 each 3 Sig: Use with blood glucose test once daily DX: E11.9 Authorizing Provider: FRANCY PALACIOS APRN.STAVE SAW OPERATOR Allergies As of Date: 10/13/2024 Noted Allergy Reaction BEES 08/29/2008 BEE VENOM PROTEIN (HONEY BEE) 05/27/2018 16 - Unknown 7 - Swelling Date Reviewed: 09/21/2024 Reviewed by: Araceli Gray MA - Fully Assessed Reason for Visit: Orders [681] Visit Diagnosis:Controlled type 2 diabetes mellitus without complication, without long-term current use of insulin (HCC) [E11.9] Order(s):blood sugar diagnostic (BLOOD GLUCOSE TEST) test stripTest blood sugar(s) 1 times daily. Dx: Type 2 DM - Controlled E11.9 Insulin: NoDisp: 50 stripRfl: 11 Blood-Glucose Meter1 each once daily. DXE11.9Disp: 1 eachRfl: 0 LancetsUse with blood glucose test once daily DX: E11.9Disp: 100 eachRfl: 3 Prescriptions as of 10/13/2024 - blood sugar diagnostic (BLOOD GLUCOSE TEST) test strip Test blood sugar(s) 1 times daily. Dx: Type 2 DM - Controlled E11.9 Insulin: No - Blood-Glucose Meter 1 each once daily. DXE11.9 - Lancets Use with blood glucose test once daily DX: E11.9 - methocarbamol (ROBAXIN-750) 750 mg tablet Take 1 tablet by mouth three times a day as needed. - nitroglycerin sublingual (NITROQUICK) 0.4 mg SL tablet DISSOLVE 1 (ONE) TABLET UNDER THE TONGUE NEEDED FOR CHEST PAIN. MAY REPEAT EVERY 5 MINUTES IF NEEDED; MAX OF 3 DOSES. IF NO RELIEF, COURTNEY - insulin glargine (LANTUS SOLOSTAR U-100 INSULIN) 100 unit/mL (3 mL) Inject 8 Units subcutaneously every 24 hours. - Insulin Selma, Disposable, (PEN NEEDLE) 32 gauge x 5/32 Inject 1 Each subcutaneously every 24 hours. Give with each insulin administration. - blood sugar diagnostic (TRUE METRIX GLUCOSE TEST STRIP) test strip testing once daily DX E11.9 Insulin No - albuterol HFA (PROVENTIL HFA, VENTOLIN HFA) 90 mcg/actuation inhaler Inhale 2 Puffs as instructed every 6 hours as needed for wheezing/shortness of breath. - aspirin, enteric coated (ASPIRIN, ENTERIC COATED) 81 mg EC tablet Take 1 tablet by mouth once daily. - isosorbide mononitrate ER (IMDUR) 30 mg 24 hr tablet Take 1 tablet by mouth once daily. Take w/ 60 mg tablet for total daily dose of 90 mg. - isosorbide mononitrate ER (IMDUR) 60 mg 24 hr tablet Take 1 tablet by mouth once daily. Take w/ 30 mg tablet for total daily dose of 90 mg. - meclizine (ANTIVERT) 25 mg tab Take 1 tablet by mouth three times a day as needed. - Lancets Test blood sugar(s) One time daily. Dx: Type 2 DM - Controlled E11.9 Insulin: No. - famotidine (PEPCID) 20 mg tablet Take 1 tablet by mouth two times a day. - predniSONE (DELTASONE) 10 mg tablet Day #1 - 6 tablets PO then Day #2 - 5 tablets PO then Day #3 - 4 tablets PO then Day #4 - 3 tablets PO then Day #5 - 2 tablets PO then Day #6 - 1 tablet PO - atorvastatin (LIPITOR) 80 mg tablet Take 1 tablet by mouth once daily. - calcium-cholecalciferol, D3, (OSCAL+D 250) 250 mg-3.125 mcg (125 unit) per tablet Take 1 tablet by mouth two times a day. - Cholecalciferol, Vitamin D3, 25 mcg (1,000 unit) cap Take 1 capsule by mouth once daily. - empagliflozin (JARDIANCE) 10 mg tablet Take 1 tablet by mouth daily with breakfast. - sertraline (ZOLOFT) 100 mg tablet Take 1 tablet by mouth once daily. - atenolol (TENORMIN) 50 mg tablet Take 1 tablet by mouth once daily. - linaGLIPtin (TRADJENTA) 5 mg tab Take 1 tablet by mouth once daily. - buPROPion XL (WELLBUTRIN XL) 150 mg 24 hr tablet Take 1 tablet by mouth once daily. - Blood Pressure Monitor Use as directed, Monitor and arm cuff. Dx: I25.119, N18.30, I.10 Problem List As Of Date 10/13/2024 Noted Resolved Lumbago [M54.50] 10/02/2011 09/04/2016 Pain in joint, shoulder region [M25.519] 10/20/2011 09/04/2016 Disorders of bursae and tendons in shoulder reg*10/20/2011 09/04/2016 Diabetes mellitus (HCC) [E11.9] 03/25/2012 07/06/2020 Hyperlipidemia [E78.5] 03/25/2012 Chest pain [R07.9] (more content not included)... [facility] (ENDIMT[facility] ROSEANN VIVEROS ([id number]) 1965 F [facility] Date Time Provider Department 09/26/24 4:00 PM ELEAZAR FRANKS During your visit today, we recorded the following information about you: Eleazar Franks RN 09/26/2024 3:54 PM Signed DIABETES CARE AND EDUCATION VISIT Location: [facility] Type of visit: In person individual PATIENT'S MAIN CONCERN TODAY: Newly using insulin Support person present for education today: none Cognitive ability: Alert and oriented Motivation to learn: Interested Learning barriers identified by educator: none Method of instruction: written, verbal, and demonstration DIABETES FINDINGS: Monitoring: Reviewed use of meter, she reports her sugars are typically upper 100s and lower 200s Meal Planning: reviewed the benefits of moderate carb diet Medications: pt states they are currently taking Jardiance and 8 units of Lantus Reducing Risks: benefits of moderating blood sugars to prevent complications HANDOUTS: Healthy You: Survival Skills and Healthy You: Planning Healthy Meals LEARNING RESPONSE: Taking medications: Demonstrated understanding/competency today or at previous visit Monitoring glucose: Demonstrated understanding/competency today or at previous visit POSSIBLE FUTURE TOPICS: 1. DIABETES CARE AND EDUCATION PLAN: Education completed and annual diabetes education follow-up visit recommended Time Spent (Minutes): 30 This visit note will be communicated to the healthcare provider via access to shared medical record. SIGNATURE: Eleazar Franks RN PATIENT NAME: Roseann Viveros DATE: September 26, 2024 TIME: 3:22 PM Referring Provider: DAKSHA ANTON [[id number]] Allergies As of Date: 09/26/2024 Noted Allergy Reaction BEES 08/29/2008 BEE VENOM PROTEIN (HONEY BEE) 05/27/2018 16 - Unknown 7 - Swelling Date Reviewed: 09/21/2024 Reviewed by: Araceli Gray MA - Fully Assessed Visit Diagnosis:Diabetes mellitus type 2 (HCC) [E11.9] Order(s):CONSULT TO DIABETES EDUCATION DSME [[id number]] Order #: [id number]: 2 Prescriptions as of 09/26/2024 - HYDROcodone-acetaminophen (NORCO) 5-325 mg per tablet Take 1-2 tablets by mouth every 6 hours as needed for up to 7 days. - methocarbamol (ROBAXIN-750) 750 mg tablet Take 1 tablet by mouth three times a day as needed. - nitroglycerin sublingual (NITROQUICK) 0.4 mg SL tablet DISSOLVE 1 (ONE) TABLET UNDER THE TONGUE NEEDED FOR CHEST PAIN. MAY REPEAT EVERY 5 MINUTES IF NEEDED; MAX OF 3 DOSES. IF NO RELIEF, COURTNEY - insulin glargine (LANTUS SOLOSTAR U-100 INSULIN) 100 unit/mL (3 mL) Inject 8 Units subcutaneously every 24 hours. - Insulin Selma, Disposable, (PEN NEEDLE) 32 gauge x 5/32 Inject 1 Each subcutaneously every 24 hours. Give with each insulin administration. - blood sugar diagnostic (TRUE METRIX GLUCOSE TEST STRIP) test strip testing once daily DX E11.9 Insulin No - albuterol HFA (PROVENTIL HFA, VENTOLIN HFA) 90 mcg/actuation inhaler Inhale 2 Puffs as instructed every 6 hours as needed for wheezing/shortness of breath. - aspirin, enteric coated (ASPIRIN, ENTERIC COATED) 81 mg EC tablet Take 1 tablet by mouth once daily. - isosorbide mononitrate ER (IMDUR) 30 mg 24 hr tablet Take 1 tablet by mouth once daily. Take w/ 60 mg tablet for total daily dose of 90 mg. - isosorbide mononitrate ER (IMDUR) 60 mg 24 hr tablet Take 1 tablet by mouth once daily. Take w/ 30 mg tablet for total daily dose of 90 mg. - meclizine (ANTIVERT) 25 mg tab Take 1 tablet by mouth three times a day as needed. - Lancets Test blood sugar(s) One time daily. Dx: Type 2 DM - Controlled E11.9 Insulin: No. - blood sugar diagnostic (BLOOD GLUCOSE TEST) test strip Test blood sugar(s) 1 times daily. Dx: Type 2 DM - Controlled E11.9 Insulin: No - famotidine (PEPCID) 20 mg tablet Take 1 tablet by mouth two times a day. - predniSONE (DELTASONE) 10 mg tablet Day #1 - 6 tablets PO then Day #2 - 5 tablets PO then Day #3 - 4 tablets PO then Day #4 - 3 tablets PO then Day #5 - 2 tablets PO then Day #6 - 1 tablet PO - atorvastatin (LIPITOR) 80 mg tablet Take 1 tablet by mouth once daily. - calcium-cholecalciferol, D3, (OSCAL+D 250) 250 mg-3.125 mcg (125 unit) per tablet Take 1 tablet by mouth two times a day. - Cholecalciferol, Vitamin D3, 25 mcg (1,000 unit) cap Take 1 capsule by mouth once daily. - empagliflozin (JARDIANCE) 10 mg tablet Take 1 tablet by mouth daily with breakfast. - sertraline (ZOLOFT) 100 mg tablet Take 1 tablet by mouth once daily. - atenolol (TENORMIN) 50 mg tablet Take 1 tablet by mouth once daily. - linaGLIPtin (TRADJENTA) 5 mg tab Take 1 tablet by mouth once daily. - buPROPion XL (WELLBUTRIN XL) 150 mg 24 hr tablet Take 1 tablet by mouth once daily. - Blood Pressure Monitor Use as directed, Monitor and arm cuff. Dx: I25.119, N18.30, I.10 (more content not included)... Normal [facility] CNOVon 09-21-2024 CNOV Office Visit (PNMDNA ) ROSEANN VIVEROS ([id number]) 1965 F [facility] Date Time Provider Department 09/21/24 9:00 AM [facility] During your visit today, we recorded the following information about you: Pulse Weight Height 64/minute 56.1 kg 1.575 m Barbara Bran, OXYGEN THERAPIST.STAVE SAW OPERATOR 09/21/2024 9:20 AM Signed Subjective Roseann Viveros presents to [facility] for a follow up appointment. Since the last visit, Roseann Viveros states the pain has been worse. Current pain intensity is 8 on a scale of 0-10. Pain located in Back area and radiates down the bilateral posterior leg. Pain described as aching, shooting, and throbbing Symptoms interfere with physical activity, work, walking, and sleeping. Pain is exacerbated by getting up from sitting and lying down. Pain is mitigated by medications, ice , and heat. The patient is overall improved with the injections in the past. 50% The medications are effective. The patient states the last dose of . OTC Tylenol was taken this morning. Patient Entered Questionnaires PROMIS Score Percentiles 02/02/2023 PROMIS Global Health Scale Physical Health Percentile 2 Mental Health Percentile 2 02/02/2023 Physical Health Physical Function Percentile 12 Pain Interference Percentile 5 Percentiles provide an indication of how the patient's score ranks in relation to the general population. Higher percentile rankings indicate better function/quality of life. 50th percentile is the average of the general population and indicates half of respondents had a worse score. > 31st percentile is within normal limits or better * < 31st percentile is at least ? SD worse than population, which may be clinically relevant < 16th percentile is at least 1 SD worse than population and warrants attention Review of Systems Constitutional: (-) Weight Gain (-) Weight Loss (+) Fatigue Cardiovascular: (-) hx heart surgery (-) Pacemaker Respiratory: (+) Shortness of Breath (-) Cough (+) Snoring Gastrointestinal: (-) Incontinence (-) Diarrhea (-) Constipation (-) Nausea/Vomiting Endocrine: (-) Thyroid Disorder (+) Diabetes Hematologic: (-) Prolonged Bleeding (+) Easy Bruising Genitourinary: (+) Incontinence (-) Frequency (-) Urinary Urgency Skin: (-) Open sores/wound Neurologic: (+) Headache (+) Double Vision Psychiatric: (+) Depression (+) Anxiety (-) Personal History of Alcohol or Substance Abuse (+) Family History of Alcohol or Substance Abuse Chief Complaint Patient presents with: Back Pain Refill Request Physical Examination Pulse 64 Ht 5' 2 (1.58m) Wt 123 lb 10.9 oz (56.1kg) SpO2 97% LMP 09/01/2010 BMI 22.62 kg/(m2). General:well appearing and alert Skin: Skin color, texture, turgor normal, no rashes or lesions HEENT: normal Cardiovascular: Regular, rate and rhythm Lungs: Normal respiratory rate and rhythm, unlabored on room air Musculoskeletal: Back: Tenderness on palpation over the lumbar spine. , Tenderness over the bilateral lumbar paraspinal muscles Extremities: Normal exam of the extremities Neurological: Mental Status: alert Motor Strength: Motor strength and tone are 5/5 all throughout. Sensory: Not Examined Gait: Antalgic. Trigger points: lumbosacral spine muscles. Assessment Assessment : Encounter Diagnosis ICD-10-CM 1. Degeneration of intervertebral disc of lumbar region with discogenic back pain M51.360 2. Spondylolisthesis of lumbar region M43.16 HYDROcodone-acetaminophen (NORCO) 5-325 mg per tablet 3. Radiculopathy, lumbar region M54.16 HYDROcodone-acetaminophen (NORCO) 5-325 mg per tablet 4. Spinal stenosis of lumbar region with neurogenic claudication M48.062 HYDROcodone-acetaminophen (NORCO) 5-325 mg per tablet 5. DDD (degenerative disc disease), lumbar M51.369 HYDROcodone-acetaminophen (NORCO) 5-325 mg per tablet Patient presents for follow-up visit for medication refills Patient has a history of chronic low back pain that radiates down the bilateral lower extremities to the feet. She reports the left side is worse than the right side She denies numbness tingling and burning She has seen podiatry and they recommended inserts Patient takes Citra and Robaxin do not manage her chronic pain 02/02/2023 PROMIS CAT Pain Interference PROMIS Pain Interference T-Score (range: 10 - 90) 66 (moderate) PROMIS Pain Interference Percentile 5 PROMIS Adult Short Form-Global Health Score (Mental) 28.4 (Poor) OARRS Report: Reviewed: The patient's OARRS report was reviewed and is consistent with the reported medication use. Plan Injection history was reviewed. Medication use and compliance were reviewed. 1. Continue medication management through the Pain Management Center 2. The following approved medication requests have been (more content not included)... Normal [facility] CNOVon 09-18-2024 CNOV Office Visit (CARDWS ) ROSEANN VIVEROS ([id number]) 1965 F [facility] Date Time Provider Department 09/18/24 2:40 PM TRACY SAUER During your visit today, we recorded the following information about you: Pulse Respiration Blood pressure Weight 60/minute 12/minute 102/62 56.7 kg Height 1.575 m Tarcy Sauer MD 09/18/2024 4:41 PM Signed Tracy Sauer MD Interventional Cardiology [address] [id number] [phone] Chief Complaint Patient presents with: Follow Up: 6 month follow up HISTORY OF PRESENT ILLNESS: Ms. Viveros is a 59 year old female seen in my office today for assessment management of her coronary artery disease patient had moderate disease involve the circumflex history of hyperlipidemia hypertension and diabetes mellitus with chronic kidney disease She does have exertional dyspnea on extreme exertion but regular activity induced no symptoms nuclear stress test shows no evidence of ischemia On appropriate medical therapy Cardiac Risk Factors age (male over 45, female over 55), hyperlipidemia, diabetes, hypertension, family history of CAD PAST MEDICAL HISTORY Diagnosis Date Anxiety 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 08/31/2016 Depression Diabetes mellitus (HCC) 2010 No nephropathy, neuropathy, retinopathy DJD (degenerative joint disease) of lumbar spine Hyperlipidemia 2011 Low back pain [id number] Unspecified , without mention of complication, unspecified 2 Miscarriage's PAST SURGICAL HISTORY Procedure Laterality Date DELIVERY ONLY , low cervical, (2) DILATION AND CURETTAGE DXAND/THER NONOBSTETRIC Dilation AND curettage x 2 LIGATE FALLOPIAN TUBE 2002 NEUROPLASTY AND/TRANSPOS MEDIAN NRV CARPAL TUNNE Bilateral 09/18/2016 THYROID FINE NEEDLE ASPIRATION Right 07/07/2021 THYROID FINE NEEDLE ASPIRATION 08/01/2021 TONSILLECTOMY AND ADENOIDECTOMY FAMILY HISTORY Problem Relation Age of Onset Diabetes Mother Heart Mother Cataract Mother Emphysema Father Cancer Father other (Kidney Failure) Father Arthritis Paternal Aunt Arthritis Paternal Grandmother Hands Social History Tobacco Use Smoking status: Former Current packs/day: 0.00 Average packs/day: 0.3 packs/day for 20.0 years (6.0 ttl pk-yrs) Types: Cigarettes Start date: 03/24/2003 Quit date: 03/24/2023 Years since quittin.4 Smokeless tobacco: Never Tobacco comments: TRYING TO QUIT-SMOKES 1-2 A DAY as of 11/28/15 Vaping Use Vaping status: current everyday user Substances: Nicotine, Flavoring Devices: Disposable Substance Use Topics Alcohol use: Not Currently Comment: Quit 2001 Drug use: Not Currently Types: Marijuana ALLERGIES Allergen Reactions Bees Bee Venom Protein (* Unknown, Swelling Medications: Current Outpatient Medications Medication Sig Dispense Refill insulin glargine (LANTUS SOLOSTAR U-100 INSULIN) 100 unit/mL (3 mL) Inject 8 Units subcutaneously every 24 hours. 15 mL 0 Insulin Selma, Disposable, (PEN NEEDLE) 32 gauge x 5/32 Inject 1 Each subcutaneously every 24 hours. Give with each insulin administration. 100 Each 3 blood sugar diagnostic (TRUE METRIX GLUCOSE TEST STRIP) test strip testing once daily DX E11.9 Insulin No 200 Strip 2 albuterol HFA (PROVENTIL HFA, VENTOLIN HFA) 90 mcg/actuation inhaler Inhale 2 Puffs as instructed every 6 hours as needed for wheezing/shortness of breath. 18 g 1 aspirin, enteric coated (ASPIRIN, ENTERIC COATED) 81 mg EC tablet Take 1 tablet by mouth once daily. 90 tablet 3 isosorbide mononitrate ER (IMDUR) 30 mg 24 hr tablet Take 1 tablet by mouth once daily. Take w/ 60 mg tablet for total daily dose of 90 mg. 90 tablet 3 isosorbide mononitrate ER (IMDUR) 60 mg 24 hr tablet Take 1 tablet by mouth once daily. Take w/ 30 mg tablet for total daily dose of 90 mg. 90 tablet 3 meclizine (ANTIVERT) 25 mg tab Take 1 tablet by mouth three times a day as needed. 90 tablet 1 Lancets Test blood sugar(s) One time daily. Dx: Type 2 DM - Controlled E11.9 Insulin: No. 100 Each 11 blood sugar diagnostic (BLOOD GLUCOSE TEST) test strip Test blood sugar(s) 1 times daily. Dx: Type 2 DM - Controlled E11.9 Insulin: No 50 Strip 11 famotidine (PEPCID) 20 mg tablet Take 1 tablet by mouth two times a day. 180 tablet 3 atorvastatin (LIPITOR) 80 mg tablet Take 1 tablet by mouth once daily. 90 tablet 3 calcium-cholecalciferol, D3, (OSCAL+D 250) 250 mg-3.125 mcg (125 unit) per tablet Take 1 tablet by mouth two times a day. 60 tablet 11 Cholecalciferol, Vitamin D3, 25 mcg (1,000 unit) cap Take 1 capsule by mouth once daily. 30 capsule 11 empagliflozin (JARDIANCE) 10 mg tablet Take 1 tablet by mouth daily with breakfast. 90 tablet 3 sertraline (ZOLOFT) 100 mg tablet Take 1 tablet by edi (more content not included)... Normal [facility] CNOV Office Visit (PODIWS ) ROSEANN VIVEROS ([id number]) 1965 F [facility] Date Time Provider Department 09/18/24 1:30 PM SILVIO COOK PODIWS During your visit today, we recorded the following information about you: Alicia Jenkins LPN 09/18/2024 3:27 PM Signed AMB ROOMING INTAKE FLOWSHEET DATA Patient presents with: Left Foot - New, Diabetic Foot Care, Nail Fungus, Derm Problem Right Foot - New, Diabetic Foot Care, Nail Fungus, Derm Problem KALI Souza Matthew 09/18/2024 3:27 PM Signed Consultation requested by Dr. Ventura for an opinion regarding diabetic foot exam. My final recommendations will be communicated back to the requesting physician by way of shared Medical record or letter to requesting physician via US mail. Initial Office Visit Subjective: This 59 year old female presents to clinic for diabetic foot check. Patient has the following complaints: Nail fungus. She complains of thick, dystrophic toenails that have been this way for several years. Has tried over the counter fungal nail medication but that does not help. She states the nails will cause her pain at times. Bunion of b/l feet. She denies any pain Patient admits to being diabetic for 22 years now. Patient -B/T/N in feet at this time. Patient -pain in legs when walking. No other pedal complaints at this time. No change in medications or medical history since last visit. PAIN EVALUATION No data found in the last 1 encounters. Hemoglobin A1C (%) Date Value 08/02/2024 10.0 02/07/2024 7.6 06/10/2023 5.8 02/13/2022 7.3 06/18/2021 6.7 02/18/2021 7.7 07/06/2020 7.2 12/27/2018 6.5 07/05/2018 6.4 PCP: Garrett Ventura MD PAST MEDICAL HISTORY Diagnosis Date Anxiety 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 08/31/2016 Depression Diabetes mellitus (HCC) 2010 No nephropathy, neuropathy, retinopathy DJD (degenerative joint disease) of lumbar spine Hyperlipidemia 2011 Low back pain [id number] Unspecified , without mention of complication, unspecified 2 Miscarriage's Current Outpatient Medications Medication Sig insulin glargine (LANTUS SOLOSTAR U-100 INSULIN) 100 unit/mL (3 mL) Inject 8 Units subcutaneously every 24 hours. Insulin Selma, Disposable, (PEN NEEDLE) 32 gauge x 5/32 Inject 1 Each subcutaneously every 24 hours. Give with each insulin administration. blood sugar diagnostic (TRUE METRIX GLUCOSE TEST STRIP) test strip testing once daily DX E11.9 Insulin No albuterol HFA (PROVENTIL HFA, VENTOLIN HFA) 90 mcg/actuation inhaler Inhale 2 Puffs as instructed every 6 hours as needed for wheezing/shortness of breath. aspirin, enteric coated (ASPIRIN, ENTERIC COATED) 81 mg EC tablet Take 1 tablet by mouth once daily. isosorbide mononitrate ER (IMDUR) 30 mg 24 hr tablet Take 1 tablet by mouth once daily. Take w/ 60 mg tablet for total daily dose of 90 mg. isosorbide mononitrate ER (IMDUR) 60 mg 24 hr tablet Take 1 tablet by mouth once daily. Take w/ 30 mg tablet for total daily dose of 90 mg. meclizine (ANTIVERT) 25 mg tab Take 1 tablet by mouth three times a day as needed. Lancets Test blood sugar(s) One time daily. Dx: Type 2 DM - Controlled E11.9 Insulin: No. blood sugar diagnostic (BLOOD GLUCOSE TEST) test strip Test blood sugar(s) 1 times daily. Dx: Type 2 DM - Controlled E11.9 Insulin: No famotidine (PEPCID) 20 mg tablet Take 1 tablet by mouth two times a day. predniSONE (DELTASONE) 10 mg tablet Day #1 - 6 tablets PO then Day #2 - 5 tablets PO then Day #3 - 4 tablets PO then Day #4 - 3 tablets PO then Day #5 - 2 tablets PO then Day #6 - 1 tablet PO (Patient not taking: Reported on 09/04/2024) atorvastatin (LIPITOR) 80 mg tablet Take 1 tablet by mouth once daily. calcium-cholecalciferol, D3, (OSCAL+D 250) 250 mg-3.125 mcg (125 unit) per tablet Take 1 tablet by mouth two times a day. Cholecalciferol, Vitamin D3, 25 mcg (1,000 unit) cap Take 1 capsule by mouth once daily. empagliflozin (JARDIANCE) 10 mg tablet Take 1 tablet by mouth daily with breakfast. sertraline (ZOLOFT) 100 mg tablet Take 1 tablet by mouth once daily. atenolol (TENORMIN) 50 mg tablet Take 1 tablet by mouth once daily. linaGLIPtin (TRADJENTA) 5 mg tab Take 1 tablet by mouth once daily. buPROPion XL (WELLBUTRIN XL) 150 mg 24 hr tablet Take 1 tablet by mouth once daily. nitroglycerin sublingual (NITROQUICK) 0.4 mg SL tablet DISSOLVE 1 (ONE) TABLET UNDER THE TONGUE NEEDED FOR CHEST PAIN. MAY REPEAT EVERY 5 MINUTES IF NEEDED; MAX OF 3 DOSES. IF NO RELIEF, COURTNEY Blood Pressure Monitor Use as directed, Monitor and arm cuff. Dx: I25.119, N18.30, I.10 No current facility-administered medications for this visit. ALLERGIES Allergen Reactions Bees Bee Venom Protein (* Unknown, Swelling PAST SURGICAL HISTORY Procedure Laterality Date (more content not included)... Normal [facility] Microorganism Spec Culton Microorganism identified Cx Nom (Unsp spec) ORGANISM ID: 1 Rare Trichophyton species Identified by microscopic morphology ORGANISM ID: 3 One colony Dematiaceous mold Identified by microscopic morphology FUNGAL SMEAR: Many Septate hyphae Abnormal [facility] Comment on above: Performed By: #### [id number] ####[facility] [id number] [address] [place] CNOVon 09-15-2024 CNOV Office Visit (ENWSTR ) ROSEANN VIVEROS ([id number]) 1965 F [place] Date Time Provider Department 09/15/24 1:00 PM DAKSHA ANTON During your visit today, we recorded the following information about you: Temperature Pulse Blood pressure Weight 97.6 degrees 66/minute 88/54 57.2 kg Daksha Anton MD 09/15/2024 6:20 PM Signed [facility] Initial Clinic Visit Note Referred by: Dr. Garrett Ventura MD (PCP) Chief complaint: Poorly controlled Type 2 DM My final recommendations will be communicated back to the requesting physician by way of shared medical record or letter via US mail. History of Present Illness: Roseann Viveros is a 59-year-old female with a history of DM, HTN, HLD, lumbar stenosis, and CKD, presenting for DM management. -Initially diagnosed: 22 years ago, following the of her youngest child. Denied any surgeries on pancreas, pancreatitis in the past . Symptoms No recent weight loss; desires weight reduction. Reports polyuria; suspects current yeast infection with dysuria and pruritus. Complications: Cardiovascular -- Yes HTN, HLP, CAD Has a follow-up appointment with a extractions technologist on Wednesday to discuss potential cardiac catheterization due to dyspnea. Statin Use -- yes atorvastatin 80 mg daily Retinopathy -- no Last PRATEEK/Retina Eval: Last eye exam approximately one year ago; reports no retinopathy- underwent laser surgery on both eyes, improving vision. Nephropathy -- CKD stage 3b NEPTALI/ARB Use -- no Polyneuropathy -- Occasional paresthesia in feet; no recent episodes. Foot Exam: none - was referred to podiatry Obesity -- No Other -- No -Family history of diabetes mellitus: in mother () and brother (complicated by open heart surgery and hypoglycemic car accident). Personal history of DKA or HHS-- No Personal history of pancreatitis-- No History of alcohol consumption--No Family history of thyroid cancer-- No Personal history of Urinary tract infections -- Reports polyuria; suspects current yeast infection with dysuria and pruritus. Diabetic education class: never . Diabetes Medications -Current regimen: Tradjenta 5 mg and Jardiance 10 mg. -Misses doses: None -Adverse medication effects: none Reports being scared of needles, and does not prefer using insulin -Previously Used DM Meds: Yes Metformin - was on it for almost 20 years, had no side effects, was discontinued Glimepiride- d/cd due to unknown reasons per patient . Blood sugars -Self monitoring of blood sugar via fingerstick: once daily, sometimes twice if levels exceed 200 mg/dL. Considers blood glucose levels above 200 mg/dL as high and below 70-75 mg/dL as low. -Brought blood glucose log for review: No -BG log reviewed: no . Hypoglycemia -Hypoglycemic episodes: no recent episodes -Frequency and timing of hypoglycemia: N/A -Hypoglycemia awareness: yes, feels diaphoretic Manages high blood glucose with crackers and low blood glucose with candy. . 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 -Diet: Breakfast: Lunch: Dinner: Typically eats one to two meals per day, often skipping breakfast. ROS: SYSTEMIC: Denies fatigue, malaise, energy, Weight has been stable, heat/cold intolerance, polydipsia EYES: Denies blurring of vision, diplopia, pain/discomfort, excessive tearing, swelling of eye lids, bulging, redness, dryness, NECK: Denies goiter, lump, pain/discomfort, dysphagia, hoarseness, sore thorat RESPIRATORY: Denies dyspnea at rest/with exertion, orthopnea cough, pleuritic chest pain, snoring, apnea episodes CARDIOVASCULAR: Chest pain, palpitations, irregular heart beats GASTRO-INTESTINAL:Denies Nausea, vomiting, abdominal pain, hyperdefecation, rectal bleeding NEUROLOGICAL: Denies dizziness, lightheadedness, weakness, cramping, numbness/tingling of extremities MUSCULOSKELETAL: Denies joint pain, stiffness, swelling, cramping or weakness. 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 Normal [facility] CNOVon 09-04-2024 CNOV Office Visit (ORTHWS ) ROSEANN VIVEROS ([id number]) 1965 F [place] Date Time Provider Department 09/04/24 2:15 PM LUIS MENENDEZ During your visit today, we recorded the following information about you: Luis Menendez MD 09/25/2024 10:11 PM Signed Luis Menendez MD Department of Orthopaedics Orthopaedics [address] [place] [id number] Dept: [phone] Dept September 04, 2024 CHIEF COMPLAINT: New and Pain of the Right Hand HPI Patient here today for right middle trigger finger. Finger is clicking and locking for approximately 3 weeks now. She is right hand dominant. Does not work outside the home. ASSESSMENT: M79.641, M79.642 Pain in both hands M65.331 Trigger middle finger of right hand PLAN: We reviewed the different options for a finger tendonitis. Injection vs. Trigger release. FOLLOW UP INSTRUCTIONS: As needed. OBJECTIVE: Ms. Roseann Viveros is a pleasant 59 year old in no apparent distress. Gen:LMP 09/01/2010 nl development, non obese, no deformities ENT: Normocephalic, normal hearing, moist mucosa CV: Pulses:Radial= 2+ and symmetric, capillary refill < 2 secs, no peripheral edema/varicosities Skin: no rash, bruising or lesions. Good turgor. Psych: cooperative and appropriate, alert and oriented x 3, good mood and affect. Musculoskeletal: Mild TTP at the A1 sharon. No locking, mild catching at this time. IMAGING: Deferred. 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 (HCC) 08/31/2016 Depression Diabetes mellitus (HCC) 2010 No nephropathy, neuropathy, retinopathy DJD (degenerative joint disease) of lumbar spine Hyperlipidemia 2011 Low back pain [id number] Unspecified , without mention of complication, unspecified 2 Miscarriage's Past Surgical History: PAST SURGICAL HISTORY Procedure Laterality Date DELIVERY ONLY , low cervical, (2) DILATION AND CURETTAGE DXAND/THER NONOBSTETRIC Dilation AND curettage x 2 LIGATE FALLOPIAN TUBE 2002 NEUROPLASTY AND/TRANSPOS MEDIAN NRV CARPAL TUNNE Bilateral 09/18/2016 THYROID FINE NEEDLE ASPIRATION Right 07/07/2021 THYROID FINE NEEDLE ASPIRATION 08/01/2021 TONSILLECTOMY AND ADENOIDECTOMY Family History: FAMILY HISTORY Problem Relation Age of Onset Diabetes Mother Heart Mother Cataract Mother Emphysema Father Cancer Father other (Kidney Failure) Father Arthritis Paternal Aunt Arthritis Paternal Grandmother Hands Social History: Social History Tobacco Use Smoking status: Former Current packs/day: 0.00 Average packs/day: 0.3 packs/day for 20.0 years (6.0 ttl pk-yrs) Types: Cigarettes Start date: 03/24/2003 Quit date: 03/24/2023 Years since quittin.4 Smokeless tobacco: Never Tobacco comments: TRYING TO QUIT-SMOKES 1-2 A DAY as of 11/28/15 Vaping Use Vaping status: current everyday user Substances: Nicotine, Flavoring Devices: Disposable Substance Use Topics Alcohol use: Not Currently Comment: Quit 2001 Drug use: Not Currently Types: Marijuana Medications: Current Outpatient Medications Medication Sig albuterol HFA (PROVENTIL HFA, VENTOLIN HFA) 90 mcg/actuation inhaler Inhale 2 Puffs as instructed every 6 hours as needed for wheezing/shortness of breath. aspirin, enteric coated (ASPIRIN, ENTERIC COATED) 81 mg EC tablet Take 1 tablet by mouth once daily. isosorbide mononitrate ER (IMDUR) 30 mg 24 hr tablet Take 1 tablet by mouth once daily. Take w/ 60 mg tablet for total daily dose of 90 mg. isosorbide mononitrate ER (IMDUR) 60 mg 24 hr tablet Take 1 tablet by mouth once daily. Take w/ 30 mg tablet for total daily dose of 90 mg. meclizine (ANTIVERT) 25 mg tab Take 1 tablet by mouth three times a day as needed. famotidine (PEPCID) 20 mg tablet Take 1 tablet by mouth two times a day. atorvastatin (LIPITOR) 80 mg tablet Take 1 tablet by mouth once daily. calcium-cholecalciferol, D3, (OSCAL+D 250) 250 mg-3.125 mcg (125 unit) per tablet Take 1 tablet by mouth two times a day. Cholecalciferol, Vitamin D3, 25 mcg (1,000 unit) cap Take 1 capsule by mouth once daily. empagliflozin (JARDIANCE) 10 mg tablet Take 1 tablet by mouth daily with breakfast. sertraline (ZOLOFT) 100 mg tablet Take 1 tablet by mouth once daily. atenolol (TENORMIN) 50 mg tablet Take 1 tablet by mouth once daily. linaGLIPtin (TRADJENTA) 5 mg tab Take 1 tablet by mouth once daily. buPROPion XL (WELLBUTRIN XL) 150 mg 24 hr tablet Take 1 tablet by mouth once daily. Lancets Test blood sugar(s) One time daily. Dx: Type 2 DM - Controlled E11.9 Insulin: No. blood sugar diagnostic (BLOOD GLUCOSE TEST) test strip Test blood sugar(s) 1 times daily. Dx: Type 2 DM - Control (more content not included)... Normal [facility] CNOVon 08-30-2024 [facility] Office Visit (SHERRY ) ROSEANN VIVEROS ([id number]) 1965 F [place] Date Time Provider Department 08/30/24 3:40 PM SAKSHI LI During your visit today, we recorded the following information about you: Pulse Respiration Blood pressure 68/minute 16/minute 98/62 Sakshi Li APRN.STAVE SAW OPERATOR 09/01/2024 11:39 AM Signed This is a 59 year old female who presents today with: Patient presents with: Follow Up HISTORY OF PRESENT ILLNESS: Roseann Viveros is a 59 year old female. Patient presents with: Follow Up Pt presents today for a follow-up. At the last visit, Dr. Ventura increased her pepcid to twice daily. Refers that this has made an improvement. Still with some breakthrough between dosing and will use tums. No decreased appetite. No hematochezia/melena. 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 (HCC) 08/31/2016 Depression Diabetes mellitus (HCC) 2010 No nephropathy, neuropathy, retinopathy DJD (degenerative joint disease) of lumbar spine Hyperlipidemia 2011 Low back pain [phone] Unspecified , without mention of complication, unspecified 2 Miscarriage's PAST SURGICAL HISTORY Procedure Laterality Date DELIVERY ONLY , low cervical, (2) DILATION AND CURETTAGE DXAND/THER NONOBSTETRIC Dilation AND curettage x 2 LIGATE FALLOPIAN TUBE 2002 NEUROPLASTY AND/TRANSPOS MEDIAN NRV CARPAL TUNNE Bilateral 09/18/2016 THYROID FINE NEEDLE ASPIRATION Right 07/07/2021 THYROID FINE NEEDLE ASPIRATION 08/01/2021 TONSILLECTOMY AND ADENOIDECTOMY ALLERGIES Bees and Bee Venom Protein (Honey Bee) MEDICATIONS Current Outpatient Medications Medication Sig isosorbide mononitrate ER (IMDUR) 30 mg 24 hr tablet Take 1 tablet by mouth once daily. Take w/ 60 mg tablet for total daily dose of 90 mg. isosorbide mononitrate ER (IMDUR) 60 mg 24 hr tablet Take 1 tablet by mouth once daily. Take w/ 30 mg tablet for total daily dose of 90 mg. meclizine (ANTIVERT) 25 mg tab Take 1 tablet by mouth three times a day as needed. Lancets Test blood sugar(s) One time daily. Dx: Type 2 DM - Controlled E11.9 Insulin: No. blood sugar diagnostic (BLOOD GLUCOSE TEST) test strip Test blood sugar(s) 1 times daily. Dx: Type 2 DM - Controlled E11.9 Insulin: No famotidine (PEPCID) 20 mg tablet Take 1 tablet by mouth two times a day. predniSONE (DELTASONE) 10 mg tablet Day #1 - 6 tablets PO then Day #2 - 5 tablets PO then Day #3 - 4 tablets PO then Day #4 - 3 tablets PO then Day #5 - 2 tablets PO then Day #6 - 1 tablet PO atorvastatin (LIPITOR) 80 mg tablet Take 1 tablet by mouth once daily. calcium-cholecalciferol, D3, (OSCAL+D 250) 250 mg-3.125 mcg (125 unit) per tablet Take 1 tablet by mouth two times a day. Cholecalciferol, Vitamin D3, 25 mcg (1,000 unit) cap Take 1 capsule by mouth once daily. empagliflozin (JARDIANCE) 10 mg tablet Take 1 tablet by mouth daily with breakfast. sertraline (ZOLOFT) 100 mg tablet Take 1 tablet by mouth once daily. albuterol HFA (PROVENTIL HFA, VENTOLIN HFA) 90 mcg/actuation inhaler Inhale 2 Puffs as instructed every 6 hours as needed for wheezing/shortness of breath. atenolol (TENORMIN) 50 mg tablet Take 1 tablet by mouth once daily. linaGLIPtin (TRADJENTA) 5 mg tab Take 1 tablet by mouth once daily. buPROPion XL (WELLBUTRIN XL) 150 mg 24 hr tablet Take 1 tablet by mouth once daily. nitroglycerin sublingual (NITROQUICK) 0.4 mg SL tablet DISSOLVE 1 (ONE) TABLET UNDER THE TONGUE NEEDED FOR CHEST PAIN. MAY REPEAT EVERY 5 MINUTES IF NEEDED; MAX OF 3 DOSES. IF NO RELIEF, COURTNEY aspirin, enteric coated (ASPIRIN, ENTERIC COATED) 81 mg EC tablet Take 1 tablet by mouth once daily. blood sugar diagnostic (TRUE METRIX GLUCOSE TEST STRIP) test strip testing once daily DX E11.9 Insulin No Blood Pressure Monitor Use as directed, Monitor and arm cuff. Dx: I25.119, N18.30, I.10 No current facility-administered medications for this visit. FAMILY HISTORY Problem Relation Age of Onset Diabetes Mother Heart Mother Cataract Mother Emphysema Father Cancer Father other (Kidney Failure) Father Arthritis Paternal Aunt Arthritis Paternal Grandmother Hands Social History Tobacco Use Smoking status: Former Current packs/day: 0.00 Average packs/day: 0.3 packs/day for 20.0 years (6.0 ttl pk-yrs) Types: Cigarettes Start date: 03/24/2003 Quit date: 03/24/2023 Years since quittin.4 Smokeless tobacco: Never Tobacco comments: TRYING TO QUIT-SMOKES 1-2 A DAY as of 11/28/15 Vaping Use Vaping status: current everyday user Substances: Nicotine, Flavoring Devices: Disposable Substance Use Topics Alcohol use: Not Currently Comment: Quit 2001 Drug use: Not Currently Types: Marijuana EXAM: BP 98/62 Pu (more content not included)... Normal [facility] Cleo 08-30-2024 CNPN Telephone (PNMDNA) ROSEANN VIVEROS ([id number]) 1965 F [place] Date Time Provider Department 08/30/24 VINCENT VALLE During your visit today, we recorded the following information about you: Leanna Caceres RN 08/30/2024 11:08 AM Signed Patient contacted Pain Management with [facility] on 08/29/2024 requesting to schedule an appointment with Barbara Bran CNP. Routing to clerical pool for appointment scheduling. Kendy Yu 08/30/2024 3:55 PM Signed Called Patient-no answer. Unable to leave voicemail (mailbox not set up). Scheduling instructions sent to Patient via [employer]. Kendy Still 09/01/2024 11:43 AM Signed Per appt desk, Patient is scheduled for 09/21/2024 Kendy Yu Allergies As of Date: 08/30/2024 Noted Allergy Reaction BEES 08/29/2008 BEE VENOM PROTEIN (HONEY BEE) 05/27/2018 16 - Unknown 7 - Swelling Date Reviewed: 08/30/2024 Reviewed by: Jung Ayoub LPN - Fully Assessed Reason for Visit: Appointment [186] Prescriptions as of 09/01/2024 - albuterol HFA (PROVENTIL HFA, VENTOLIN HFA) 90 mcg/actuation inhaler Inhale 2 Puffs as instructed every 6 hours as needed for wheezing/shortness of breath. - aspirin, enteric coated (ASPIRIN, ENTERIC COATED) 81 mg EC tablet Take 1 tablet by mouth once daily. - isosorbide mononitrate ER (IMDUR) 30 mg 24 hr tablet Take 1 tablet by mouth once daily. Take w/ 60 mg tablet for total daily dose of 90 mg. - isosorbide mononitrate ER (IMDUR) 60 mg 24 hr tablet Take 1 tablet by mouth once daily. Take w/ 30 mg tablet for total daily dose of 90 mg. - meclizine (ANTIVERT) 25 mg tab Take 1 tablet by mouth three times a day as needed. - Lancets Test blood sugar(s) One time daily. Dx: Type 2 DM - Controlled E11.9 Insulin: No. - blood sugar diagnostic (BLOOD GLUCOSE TEST) test strip Test blood sugar(s) 1 times daily. Dx: Type 2 DM - Controlled E11.9 Insulin: No - famotidine (PEPCID) 20 mg tablet Take 1 tablet by mouth two times a day. - predniSONE (DELTASONE) 10 mg tablet Day #1 - 6 tablets PO then Day #2 - 5 tablets PO then Day #3 - 4 tablets PO then Day #4 - 3 tablets PO then Day #5 - 2 tablets PO then Day #6 - 1 tablet PO - atorvastatin (LIPITOR) 80 mg tablet Take 1 tablet by mouth once daily. - calcium-cholecalciferol, D3, (OSCAL+D 250) 250 mg-3.125 mcg (125 unit) per tablet Take 1 tablet by mouth two times a day. - Cholecalciferol, Vitamin D3, 25 mcg (1,000 unit) cap Take 1 capsule by mouth once daily. - empagliflozin (JARDIANCE) 10 mg tablet Take 1 tablet by mouth daily with breakfast. - sertraline (ZOLOFT) 100 mg tablet Take 1 tablet by mouth once daily. - atenolol (TENORMIN) 50 mg tablet Take 1 tablet by mouth once daily. - linaGLIPtin (TRADJENTA) 5 mg tab Take 1 tablet by mouth once daily. - buPROPion XL (WELLBUTRIN XL) 150 mg 24 hr tablet Take 1 tablet by mouth once daily. - nitroglycerin sublingual (NITROQUICK) 0.4 mg SL tablet DISSOLVE 1 (ONE) TABLET UNDER THE TONGUE NEEDED FOR CHEST PAIN. MAY REPEAT EVERY 5 MINUTES IF NEEDED; MAX OF 3 DOSES. IF NO RELIEF, COURTNEY - blood sugar diagnostic (TRUE METRIX GLUCOSE TEST STRIP) test strip testing once daily DX E11.9 Insulin No - Blood Pressure Monitor Use as directed, Monitor and arm cuff. Dx: I25.119, N18.30, I.10 Problem List As Of Date 08/30/2024 Noted Resolved Lumbago [M54.50] 10/02/2011 09/04/2016 Pain in joint, shoulder region [M25.519] 10/20/2011 09/04/2016 Disorders of bursae and tendons in shoulder reg*10/20/2011 09/04/2016 Diabetes mellitus (HCC) [E11.9] 03/25/2012 07/06/2020 Hyperlipidemia [E78.5] 03/25/2012 Chest pain [R07.9] 09/22/2012 07/06/2020 Numbness and tingling [R20.0, R20.2] 09/22/2012 09/04/2016 Lateral epicondylitis of elbow [M77.10] 06/19/2013 09/04/2016 Lumbar stenosis [M48.061] 06/08/2014 DDD (degenerative disc disease), lumbar [M51.36*06/08/2014 Carpal tunnel syndrome, bilateral [G56.03] 08/18/2016 Anxiety [F41.9] 08/31/2016 Coronary artery disease involving mesa grande rollins*08/31/2016 Radiculopathy, lumbar region [M54.16] 10/14/2016 Spondylolisthesis of lumbar region [M43.16] 10/14/2016 Spinal stenosis of lumbar region with neurogeni*06/01/2017 Controlled type 2 diabetes mellitus without com*04/10/2018 Spondylolisthesis [M43.10] 07/22/2018 Essential (primary) hypertension [I10] 02/22/2016 Diagnosed: 06/10/2023 Chronic renal disease, stage IV (HCC) [N18.4] 01/24/2024 Encounter Status:Closed by LEANNA CACERES on 08/30/24 [facility] Cleo 08-04-2024 CNPN Telephone (FAMPWS) NATIVIDADROSEANN ALBA ([id number]) 1965 F [place] Date Time Provider Department 08/04/24 GARRETT VENTURA During your visit today, we recorded the following information about you: Garrett Ventura MD 08/04/2024 9:53 AM Signed Labs show sugars and trigs are uncontrolled. Refer to endo. Has she missed any doses of her meds? Lilo Padgett MA 08/04/2024 9:59 AM Signed Patient informed and verbalized understanding. States she rarely misses doses but sometimes will miss her nightly dose. Agreed to see Endo. BLADIMIR Shelley Ida 08/04/2024 4:16 PM Signed Contacted patient, scheduled with Dr. Anton 09-15-2024 Allergies As of Date: 08/04/2024 Noted Allergy Reaction BEES 08/29/2008 BEE VENOM PROTEIN (HONEY BEE) 05/27/2018 16 - Unknown 7 - Swelling Date Reviewed: 08/02/2024 Reviewed by: Taya Caba LPN - Fully Assessed Reason for Visit: Results [95] Primary Visit Diagnosis:Poorly controlled diabetes mellitus (HCC) [E11.65] Other Visit Diagnosis:Mixed hyperlipidemia [E78.2] Order(s):CONSULT TO ENDOCRINOLOGY [9007] Order #: [id number]: 1 FUTURE Prescriptions as of 08/04/2024 - isosorbide mononitrate ER (IMDUR) 30 mg 24 hr tablet Take 1 tablet by mouth once daily. Take w/ 60 mg tablet for total daily dose of 90 mg. - isosorbide mononitrate ER (IMDUR) 60 mg 24 hr tablet Take 1 tablet by mouth once daily. Take w/ 30 mg tablet for total daily dose of 90 mg. - meclizine (ANTIVERT) 25 mg tab Take 1 tablet by mouth three times a day as needed. - Lancets Test blood sugar(s) One time daily. Dx: Type 2 DM - Controlled E11.9 Insulin: No. - blood sugar diagnostic (BLOOD GLUCOSE TEST) test strip Test blood sugar(s) 1 times daily. Dx: Type 2 DM - Controlled E11.9 Insulin: No - famotidine (PEPCID) 20 mg tablet Take 1 tablet by mouth two times a day. - clotrimazole-betamethasone (LOTRISONE) lotion Apply to affected area two times a day for 14 days. - predniSONE (DELTASONE) 10 mg tablet Day #1 - 6 tablets PO then Day #2 - 5 tablets PO then Day #3 - 4 tablets PO then Day #4 - 3 tablets PO then Day #5 - 2 tablets PO then Day #6 - 1 tablet PO - atorvastatin (LIPITOR) 80 mg tablet Take 1 tablet by mouth once daily. - calcium-cholecalciferol, D3, (OSCAL+D 250) 250 mg-3.125 mcg (125 unit) per tablet Take 1 tablet by mouth two times a day. - Cholecalciferol, Vitamin D3, 25 mcg (1,000 unit) cap Take 1 capsule by mouth once daily. - empagliflozin (JARDIANCE) 10 mg tablet Take 1 tablet by mouth daily with breakfast. - sertraline (ZOLOFT) 100 mg tablet Take 1 tablet by mouth once daily. - albuterol HFA (PROVENTIL HFA, VENTOLIN HFA) 90 mcg/actuation inhaler Inhale 2 Puffs as instructed every 6 hours as needed for wheezing/shortness of breath. - atenolol (TENORMIN) 50 mg tablet Take 1 tablet by mouth once daily. - linaGLIPtin (TRADJENTA) 5 mg tab Take 1 tablet by mouth once daily. - buPROPion XL (WELLBUTRIN XL) 150 mg 24 hr tablet Take 1 tablet by mouth once daily. - nitroglycerin sublingual (NITROQUICK) 0.4 mg SL tablet DISSOLVE 1 (ONE) TABLET UNDER THE TONGUE NEEDED FOR CHEST PAIN. MAY REPEAT EVERY 5 MINUTES IF NEEDED; MAX OF 3 DOSES. IF NO RELIEF, COURTNEY - aspirin, enteric coated (ASPIRIN, ENTERIC COATED) 81 mg EC tablet Take 1 tablet by mouth once daily. - blood sugar diagnostic (TRUE METRIX GLUCOSE TEST STRIP) test strip testing once daily DX E11.9 Insulin No - Blood Pressure Monitor Use as directed, Monitor and arm cuff. Dx: I25.119, N18.30, I.10 Problem List As Of Date 08/04/2024 Noted Resolved Lumbago [M54.50] 10/02/2011 09/04/2016 Pain in joint, shoulder region [M25.519] 10/20/2011 09/04/2016 Disorders of bursae and tendons in shoulder reg*10/20/2011 09/04/2016 Diabetes mellitus (HCC) [E11.9] 03/25/2012 07/06/2020 Hyperlipidemia [E78.5] 03/25/2012 Chest pain [R07.9] 09/22/2012 07/06/2020 Numbness and tingling [R20.0, R20.2] 09/22/2012 09/04/2016 Lateral epicondylitis of elbow [M77.10] 06/19/2013 09/04/2016 Lumbar stenosis [M48.061] 06/08/2014 DDD (degenerative disc disease), lumbar [M51.36*06/08/2014 Carpal tunnel syndrome, bilateral [G56.03] 08/18/2016 Anxiety [F41.9] 08/31/2016 Coronary artery disease involving [place]*08/31/2016 Radiculopathy, lumbar region [M54.16] 10/14/2016 Spondylolisthesis of lumbar region [M43.16] 10/14/2016 Spinal stenosis of lumbar region with neurogeni*06/01/2017 Controlled type 2 diabetes mellitus without com*04/10/2018 Spondylolisthesis [M43.10] 07/22/2018 Essential (primary) hypertension [I10] 02/22/2016 Diagnosed: 06/10/2023 Chronic renal disease, stage IV (HCC) [N18.4] 01/24/2024 Encounter Status:Closed by RADHA WEEKS on 08/04/24 Normal [facility] ALBUMIN/CREATININE RATIO, UR INEon 08-02-2024 Albumin DL <= 20 mg/L (U) [Mass/Vol] mg/dL Normal [facility] Comment on above: Order Comment: Specimen Type: URINE SPEC IMENOrdering Facility: [facility] Address: [address] [place] [address] Performed By: #### U ACR ####[facility] LABCL[facility] [id number] [place] [address] [place] Albumin/Creatini ne (U) [Mass ratio] <23 Normal <30 [facility] Comment on above: Order Comment: Specimen Type: URINE SPEC IMENOrdering Facility: [facility] Address: [address] [place] [address] Result Comment: Adul t Male and Female Nephrotic Criteria: <30 mg/g is considered normal to mildly increased 30-300 mg/g is considered moderately increased >300 mg/g is considered severely increased KDIGO. (2013). KDIGO 2012 Clinical Practice Guideline for the Evaluation and Management of Chronic Kidney Disease. Official Journal of the International Society of Nephrology, 3(1), 1-150. Performed By: #### U ACR ####[facility] [id number] [place] [address] [place] Creatinine (U) [Mass/Vol] 51.6 mg/dL Normal 20.0-300.0 [facility] Comment on above: Order Comment: Specimen Type: URINE SPEC IMENOrdering Facility: [facility] Address: [address] [place] [address] Performed By: #### U ACR ####[facility] [id number] [place] [address] [place] Basic metabolic 2000 panelon 08-02-2024 Anion gap [Moles/Vol] 14 mmol/L Normal 8-15 [facility] Comment on above: Order Comment: Specimen Type: BLOOD SPEC IMENOrdering Facility: [facility] Address: [address] [place] [address] Performed By: #### L IPNF, 68700-7 ####[facility] LABORATORYCLIA [id number] [place] [address] [place] Calcium [Mass/Vol] 10.1 mg/dL Normal 8.5-10.2 [facility] Comment on above: Order Comment: Specimen Type: BLOOD SPEC IMENOrdering Facility: [facility] Address: [address] [place] [address] Performed By: #### L IPNF, 90375-4 ####[facility] LABORATORYCLIA [id number] [place] [id number] [place] Chloride [Moles/Vol] 97 mmol/L Low 98-107 [facility] Comment on above: Order Comment: Specimen Type: BLOOD SPEC IMENOrdering Facility: [facility] Address: [address] [place] [address] Performed By: #### L IPNF, 81768-6 ####[facility]ORATORYCLIA [id number] [place] [id number] [place] CO2 [Moles/Vol] 23 mmol/L Normal 22-30 [facility] Comment on above: Order Comment: Specimen Type: BLOOD SPEC IMENOrdering Facility: [facility] Address: [address] [place] [address] Performed By: #### L IPNF, 21913-3 ####[facility]ORATORYCLIA [id number] [place] [id number] [place] Creatinine [Mass/Vol] 1.28 mg/dL High 0.58-0.96 [facility] Comment on above: Order Comment: Specimen Type: BLOOD SPEC IMENOrdering Facility: [facility] Address: [address] [place] [address] Performed By: #### L IPNF, 97474-2 ####[facility]ORATORYCLIA [id number] [address] Creatinine and Glomerular filtration rate.predicted panel (S/P/Bld) 48 mL/min/1.73m??? Low >=60 [facility] Comment on above: Order Comment: Specimen Type: BLOOD SPEC IMENOrdering Facility: [facility] Address: [address] [place] [address] Result Comment: Aliyah mated Glomerular Filtration Rate (eGFR) is calculated using the 2020 CKD-EPI creatinine equation. This equation utilizes serum creatinine, sex, and age as parameters. The creatinine assay has traceable calibration to isotope dilution-mass spectrometry. Refer to KDIGO guidelines for clinical interpretation. In patients with unstable renal function, e.g. those with acute kidney injury, the eGFR may not accurately reflect actual GFR. Performed By: #### L NAHEED, 04424-4 ####[facility] LABORATORYCLIA [id number] [place] [id number] [place] Glucose [Mass/Vol] 300 mg/dL High 74-99 [facility] Comment on above: Order Comment: Specimen Type: BLOOD SPEC IMENOrdering Facility: [facility] Address: [address] [place] [address] Result Comment: The [place] Diabetes Association (ADA) provides guidance for cutoff values for fasting glucose and random glucose. The ADA defines fasting as no caloric intake for at least 8 hours. Fasting plasma glucose results between 100 to 125 mg/dL indicate increased risk for diabetes (prediabetes). Fasting plasma glucose results greater than or equal to 126 mg/dL meet the criteria for diagnosis of diabetes. In the absence of unequivocal hyperglycemia, results should be confirmed by repeat testing. In a patient with classic symptoms of hyperglycemia or hyperglycemic crisis, random plasma glucose results greater than or equal to 200 mg/dL meet the criteria for diagnosis of diabetes. Reference: Standards of Medical Care in Diabetes 2016, [place] Diabetes Association. Diabetes Care. 2016.39(Suppl 1). Performed By: #### Sohail FARFAN, 43400-0 ####[facility] LABORATORYCLIA [id number] [place] [id number] [place] Potassium [Moles/Vol] 4.2 mmol/L Normal 3.7-5.1 [facility] Comment on above: Order Comment: Specimen Type: BLOOD SPEC IMENOrdering Facility: [facility] Address: [address] [place] [address] Performed By: #### L NAHEED, 24220-0 ####[facility]ORATORYCLIA [id number] [place] [id number] [place] Sodium [Moles/Vol] 134 mmol/L Low 136-144 [facility] Comment on above: Order Comment: Specimen Type: BLOOD SPEC IMENOrdering Facility: [facility] Address: [address] [place] [address] Performed By: #### L NAHEED, 39735-0 ####[facility]ORATORYCLIA [id number] [place] [id number] [place] Urea nitrogen [Mass/Vol] 11 mg/dL Normal 7-21 [facility] Comment on above: Order Comment: Specimen Type: BLOOD SPEC IMENOrdering Facility: [facility] Address: [facility] [address] Performed By: #### L IPNF, 14207-7 ####[facility] LABORATORYCLIA [id number] [place] [id number] [place] CNCOon 08-02-2024 CNCO Letter Text Normal [facility] CNOVon 08-02-2024 CNOV Office Visit (FAMPWS ) ROSEANN IVVEROS ([id number]) 1965 F [facility] Date Time Provider Department 08/02/24 4:00 PM GARRETT VENTURAWS During your visit today, we recorded the following information about you: Pulse Blood pressure Weight 65/minute 102/70 57.2 kg Garrett Ventura MD 08/02/2024 4:34 PM Signed Patient presents with: 6 Month Exam HPI: Patient presents today for office visit for follow up. DM: States that glucose is up and down. No polyuria and polydipsia. Cardio: Has used nitro a couple of times since last visit. That made her chest pain go away. Shortness of breath has increased. When she saw Dr Sauer discussed cardiac cath. Has a follow up scheduled there soon and plans to discuss based on her symptoms. No edema today. When eating and swallowing states that hurts going down. Also notices this with cold water. Also admits to still having a lot of heartburn takes famotidine as prescribed and will use Tums PRN. No black or bloody stools. Sees pain management. Has been having worsening issues with hands. No numbness. Has pain at base of hands and trigger finger. Has remote carpal tunnel. Making it difficult to handle things like cooking etc. Her son is now living with her to help her with some of her adls. Last A1c was under 8.0 She did not see nephrology and her last renal function was better after med changes. Has a breakout at the corners of her mouth bilaterlly Note was copied and pasted, without alteration from: last ov: eft elbow pain. Does not recall any injury. Sore over medial epicondyle. No redness or warmth in the elbow. Sees pain management. Saw pharmacy in August GERD: no issues with heartburn. DM:sugars have been up and down. Ddid have a mild hypoglycemic spell a few weeks ago. CARDIO:no chest pain or shortness of breath. No edema. PSYCH:emotionally is doing well. HLD:does get occasional myalgias. Sees Cardiology next month. Was to see nephrology in October an no showed. Reinforced importance of follow up. Did not do her renal us. Avoiding naids. Bp is stable. Still needs several meds adjusted for her renal functions. Latest Ref Rng 02/07/2024 WBC 3.70 - 11.00 k/uL 6.67 RBC 3.90 - 5.20 m/uL 4.70 Hemoglobin 11.5 - 15.5 g/dL 13.3 Hematocrit 36.0 - 46.0 % 41.2 MCV 80.0 - 100.0 fL 87.7 MCH 26.0 - 34.0 pg 28.3 MCHC 30.5 - 36.0 g/dL 32.3 RDW-CV 11.5 - 15.0 % 13.8 Platelet Count 150 - 400 k/uL 212 MPV 9.0 - 12.7 fL 9.5 Neut% % 62.9 Abs Neut (ANC) 1.45 - 7.50 k/uL 4.19 Lymph% % 25.2 Abs Lymph 1.00 - 4.00 k/uL 1.68 [place]% % 6.6 Abs [place] <0.87 k/uL 0.44 Eosin% % 4.0 Abs Eosin <0.46 k/uL 0.27 Baso% % 1.0 Abs Baso <0.11 k/uL 0.07 Immature Gran % % 0.3 IMMATURE GRANS (ABS) <0.10 k/uL <0.03 NRBC /100 WBC 0.0 Absolute nRBC <0.01 k/uL <0.01 DTYPE Auto Protein, Total 6.3 - 8.0 g/dL 7.4 Albumin 3.9 - 4.9 g/dL 4.5 Calcium 8.5 - 10.2 mg/dL 10.2 Bilirubin, Total 0.2 - 1.3 mg/dL 0.2 Alkaline Phosphatase 34 - 123 U/L 72 AST 13 - 35 U/L 14 ALT 7 - 38 U/L 17 Glucose 74 - 99 mg/dL 159 (H) BUN 7 - 21 mg/dL 16 Creatinine 0.58 - 0.96 mg/dL 1.08 (H) Sodium 136 - 144 mmol/L 138 Potassium 3.7 - 5.1 mmol/L 3.8 Chloride 98 - 107 mmol/L 106 CO2 22 - 30 mmol/L 21 (L) Anion Gap 8 - 15 mmol/L 11 eGFR >=60 mL/min/1.73m? 60 Normalized Calcium 1.08 - 1.30 mmol/L 1.30 Ionized Calcium 1.08 - 1.30 mmol/L 1.35 (H) Hemoglobin A1C 4.3 - 5.6 % 7.6 (H) Estimated Average Glucose mg/dL 171 Phosphorus 2.7 - 4.8 mg/dL 3.2 PTH, Intact 15 - 65 pg/mL 52 Legend: (H) High (L) Low MEDICATIONS: Current Outpatient Medications Medication Sig atorvastatin (LIPITOR) 80 mg tablet Take 1 tablet by mouth once daily. calcium-cholecalciferol, D3, (OSCAL+D 250) 250 mg-3.125 mcg (125 unit) per tablet Take 1 tablet by mouth two times a day. empagliflozin (JARDIANCE) 10 mg tablet Take 1 tablet by mouth daily with breakfast. sertraline (ZOLOFT) 100 mg tablet Take 1 tablet by mouth once daily. albuterol HFA (PROVENTIL HFA, VENTOLIN HFA) 90 mcg/actuation inhaler Inhale 2 Puffs as instructed every 6 hours as needed for wheezing/shortness of breath. atenolol (TENORMIN) 50 mg tablet Take 1 tablet by mouth once daily. linaGLIPtin (TRADJENTA) 5 mg tab Take 1 tablet by mouth once daily. buPROPion XL (WELLBUTRIN XL) 150 mg 24 hr tablet Take 1 tablet by mouth once daily. aspirin, enteric coated (ASPIRIN, ENTERIC COATED) 81 mg EC tablet Take 1 tablet by mouth once daily. isosorbide mononitrate ER (IMDUR) 30 mg 24 hr tablet Take 1 tablet by mouth once daily. Take w/ 60 mg tablet for total daily dose of 90 mg. isosorbide mononitrate ER (IMDUR) 60 mg 24 hr tablet Take 1 tablet by mouth once daily. Take w/ 30 mg tablet for total daily dose of 90 mg. meclizine (ANTIVERT) 25 mg tab Take 1 tablet by mouth three times a day as needed. Lancets Test blood sugar(s (more content not included)... Normal [facility] 08-02-2024 [facility] Telephone ([facility]) ROSEANN VIVEROS ([id number]) 1965 F [facility] Date Time Provider Department 08/02/24 GARRETT VENTURA [facility] During your visit today, we recorded the following information about you: Allergies As of Date: 08/02/2024 Noted Allergy Reaction BEES 08/29/2008 BEE VENOM PROTEIN (HONEY BEE) 05/27/2018 16 - Unknown 7 - Swelling Date Reviewed: 08/02/2024 Reviewed by: Taya Caba LPN - Fully Assessed Prescriptions as of 08/02/2024 - isosorbide mononitrate ER (IMDUR) 30 mg 24 hr tablet Take 1 tablet by mouth once daily. Take w/ 60 mg tablet for total daily dose of 90 mg. - isosorbide mononitrate ER (IMDUR) 60 mg 24 hr tablet Take 1 tablet by mouth once daily. Take w/ 30 mg tablet for total daily dose of 90 mg. - meclizine (ANTIVERT) 25 mg tab Take 1 tablet by mouth three times a day as needed. - Lancets Test blood sugar(s) One time daily. Dx: Type 2 DM - Controlled E11.9 Insulin: No. - blood sugar diagnostic (BLOOD GLUCOSE TEST) test strip Test blood sugar(s) 1 times daily. Dx: Type 2 DM - Controlled E11.9 Insulin: No - famotidine (PEPCID) 20 mg tablet Take 1 tablet by mouth two times a day. - predniSONE (DELTASONE) 10 mg tablet Day #1 - 6 tablets PO then Day #2 - 5 tablets PO then Day #3 - 4 tablets PO then Day #4 - 3 tablets PO then Day #5 - 2 tablets PO then Day #6 - 1 tablet PO - atorvastatin (LIPITOR) 80 mg tablet Take 1 tablet by mouth once daily. - calcium-cholecalciferol, D3, (OSCAL+D 250) 250 mg-3.125 mcg (125 unit) per tablet Take 1 tablet by mouth two times a day. - Cholecalciferol, Vitamin D3, 25 mcg (1,000 unit) cap Take 1 capsule by mouth once daily. - empagliflozin (JARDIANCE) 10 mg tablet Take 1 tablet by mouth daily with breakfast. - sertraline (ZOLOFT) 100 mg tablet Take 1 tablet by mouth once daily. - albuterol HFA (PROVENTIL HFA, VENTOLIN HFA) 90 mcg/actuation inhaler Inhale 2 Puffs as instructed every 6 hours as needed for wheezing/shortness of breath. - atenolol (TENORMIN) 50 mg tablet Take 1 tablet by mouth once daily. - linaGLIPtin (TRADJENTA) 5 mg tab Take 1 tablet by mouth once daily. - buPROPion XL (WELLBUTRIN XL) 150 mg 24 hr tablet Take 1 tablet by mouth once daily. - nitroglycerin sublingual (NITROQUICK) 0.4 mg SL tablet DISSOLVE 1 (ONE) TABLET UNDER THE TONGUE NEEDED FOR CHEST PAIN. MAY REPEAT EVERY 5 MINUTES IF NEEDED; MAX OF 3 DOSES. IF NO RELIEF, COURTNEY - aspirin, enteric coated (ASPIRIN, ENTERIC COATED) 81 mg EC tablet Take 1 tablet by mouth once daily. - blood sugar diagnostic (TRUE METRIX GLUCOSE TEST STRIP) test strip testing once daily DX E11.9 Insulin No - Blood Pressure Monitor Use as directed, Monitor and arm cuff. Dx: I25.119, N18.30, I.10 Problem List As Of Date 08/02/2024 Noted Resolved Lumbago [M54.50] 10/02/2011 09/04/2016 Pain in joint, shoulder region [M25.519] 10/20/2011 09/04/2016 Disorders of bursae and tendons in shoulder reg*10/20/2011 09/04/2016 Diabetes mellitus (HCC) [E11.9] 03/25/2012 07/06/2020 Hyperlipidemia [E78.5] 03/25/2012 Chest pain [R07.9] 09/22/2012 07/06/2020 Numbness and tingling [R20.0, R20.2] 09/22/2012 09/04/2016 Lateral epicondylitis of elbow [M77.10] 06/19/2013 09/04/2016 Lumbar stenosis [M48.061] 06/08/2014 DDD (degenerative disc disease), lumbar [M51.36*06/08/2014 Carpal tunnel syndrome, bilateral [G56.03] 08/18/2016 Anxiety [F41.9] 08/31/2016 Coronary artery disease involving [place]ins*08/31/2016 Radiculopathy, lumbar region [M54.16] 10/14/2016 Spondylolisthesis of lumbar region [M43.16] 10/14/2016 Spinal stenosis of lumbar region with neurogeni*06/01/2017 Controlled type 2 diabetes mellitus without com*04/10/2018 Spondylolisthesis [M43.10] 07/22/2018 Essential (primary) hypertension [I10] 02/22/2016 Diagnosed: 06/10/2023 Chronic renal disease, stage IV (HCC) [N18.4] 01/24/2024 Encounter Status:Closed by GARRETT VNETURA on 08/02/24 Normal [facility] HbA1c (Bld)on 08-02-2024 Average glucose Estimated from glycated hemoglobin (Bld) [Mass/Vol] 240 mg/dL Normal [facility] Comment on above: Order Comment: Specimen Type: BLOOD SPEC IMENOrdering Facility: [facility] Address: [address] [place] [address] Result Comment: eAG: (Estimated average glucose) is a calculated value from HgbA1c and is technical sales representative of the average blood glucose level in the last 2-3 month period. Performed By: #### 5 5454-3 ####[facility] LABCLIA [id number] [place] [address] [place] HbA1c (Bld) [Mass fraction] 10.0 % High 4.3-5.6 [facility] Comment on above: Order Comment: Specimen Type: BLOOD SPEC IMENOrdering Facility: [facility] Address: [address] [place] [address] Result Comment: [place] Diabetes Association guidelines indicate that patients with HgbA1c in the range 5.7-6.4% are at increased risk for development of diabetes, and intervention by lifestyle modification may be beneficial. HgbA1c greater or equal to 6.5% is considered diagnostic of diabetes. Performed By: #### 5 5454-3 ####[facility] LAB[facility] [id number] [place] [address] [place] LIPID PANEL, NONFASTINGon Cholesterol [Mass/Vol] 251 mg/dL High <200 [facility] Comment on above: Order Comment: Specimen Type: BLOOD SPEC IMENOrdering Facility: [facility] Address: [address] [place] [address] Result Comment: <200 mg/dL, Desirable 200-239 mg/dL, Borderline high >239 mg/dL, High Performed By: #### L IPNF, 10682-4 ####[facility] LABORATORYCLIA [id number] [place] [address] [place] HDL CHOLESTEROL, NF 42 mg/dL Normal >39 [facility] Comment on above: Order Comment: Specimen Type: BLOOD SPEC IMENOrdering Facility: [facility] Address: [address] [place] [address] Result Comment: 40-5 9 mg/dL, Acceptable >59 mg/dL, High: Negative risk factor for coronary heart disease <40 mg/dL, Low: Positive risk factor for coronary heart disease Performed By: #### L IPNF, 08980-8 ####[facility] LABORATORYCLIA [id number] [address] [place] LDL CHOLESTEROL, NF Normal [facility] Comment on above: Order Comment: Specimen Type: BLOOD SPEC IMENOrdering Facility: [facility] Address: [address] [place] [address] Result Comment: Unab le to calculate due to increased Triglycerides. A Direct LDL Cholesterol measurement will not be performed. If clinically indicated, a fasting Basic Lipid Panel (LIPB) may be ordered. Performed By: #### L NAHEED, 26271-9 ####[facility]ORATORYCLIA [id number] [address] [place] LDL/HDL RATIO, NF Normal [facility] Comment on above: Order Comment: Specimen Type: BLOOD SPEC IMENOrdering Facility: [facility] Address: [address] [place] [address] Result Comment: Unab le to calculate due to elevated Triglycerides. Reference: 1. National Cholesterol Education Program ATP III Guideline At-A-Glance Quick Desk Reference: National Heart, Lung, and Blood [place]. National Institutes of Health. 2001: NIH Publication No. 01-3305. 2. An International Atherosclerosis Society position paper: global recommendations for the management of dyslipidemia: executive summary, Atherosclerosis. 2014: 232(2):410-413. Performed By: #### L NAHEED, 03903-3 ####[facility] LABORATORYCLIA [id number] [address] OF [facility] NON HDL CHOL, NF 209 mg/dL High <130 [facility] Comment on above: Order Comment: Specimen Type: BLOOD SPEC IMENOrdering Facility: [facility] Address: [address] [place] [address] Result Comment: <130 mg/dL, Optimal 130-159 mg/dL, Near optimal/above optimal 160-189 mg/dL, Borderline high 190-219 mg/dL, High >219 mg/dL, Very high Secondary prevention optimal non HDL Cholesterol levels are recommended to be <100 mg/dL Performed By: #### L IPNF, 43662-9 ####[facility]ORATORYCLIA [id number] [place] [address] T CHOL/HDL RATIO NF 5.98 mg/dL High <5.10 [facility] Comment on above: Order Comment: Specimen Type: BLOOD SPEC IMENOrdering Facility: [facility] Address: [address] [place] [address] Performed By: #### L IPVINAYAK, 48294-5 ####[facility]ORATORYCLIA [id number] [address] [place]IG[place]ERID[place], [place] 660 mg/dL High <150 [facility] Comment on above: Order Comment: Specimen Type: BLOOD SPEC IMENOrdering Facility: [facility] Address: [address] [place] [address] Result Comment: <150 mg/dL, Normal 150-199 mg/dL, Borderline high 200-499 mg/dL, High >499 mg/dL, Very high Performed By: #### L IPVINAYAK, 81865-7 ####[facility] LABORATORYCLIA [id number] [address] [place] [facility] VLDL CHOLESTEROL, NF Normal [facility] Comment on above: Order Comment: Specimen Type: BLOOD SPEC IMENOrdering Facility: [facility] Address: [address] [place] [address] Result Comment: Unab le to calculate due to elevated Triglycerides. Performed By: #### L IPNF, 85899-9 ####[facility]ORATORYCLIA [id number] [place] [address] [place] XR HAND 3V PA/LAT/OBL BILon 08-02-2024 XR HAND 3V PA/LAT/OBL ZBIGNIEW * * *Final Report* * * DATE OF EXAM: Aug 02 2024 4:42PM WOX [id number] - XR HAND 3V PA/LAT/OBL ZBIGNIEW / PROCEDURE REASON: multiple diagnoses * * * * Physician Interpretation * * * * EXAM(s): XR HAND 3V PA/LAT/OBL ZBIGNIEW..... HISTORY: 59 years old Clinical information: Pain in both hands Pain in both hands Trigger middle finger of right hand Chronic joint pain in bilateral hands. Trigger finger of middle finger of right hand. TECHNIQUE: Images: XR HAND 3V PA/LAT/OBL ZBIGNIEW Comparison: 08/13/2023. RESULT: Findings: Mild degenerative changes of the interphalangeal joints as previously described. Degenerative changes along the articular margins of the greater multangular and metacarpal of the thumbs bilaterally. Radiocarpal and intercarpal joints normal. No fracture dislocation or bony erosion. No soft tissue swelling.. IMPRESSION: No acute abnormality Barista: PSCB Transcribe Date/Time: Aug 04 2024 1:20P Dictated by : TOPHER MARADIAGA MD This examination was interpreted and the report reviewed and electronically signed by: TOPHER MARADIAGA MD on Aug 04 2024 1:24PM EST [id number] Normal [facility] CNOVon 07-11-2024 CNOV Office Visit (UCWSTR ) ROSEANN VIVEROS ([id number]) 1965 F U[place] Date Time Provider Department 07/11/24 5:30 PM GERALDINE ARAYA [facility] During your visit today, we recorded the following information about you: Temperature Pulse Respiration Blood pressure 98.3 degrees 101/minute 16/minute 104/74 Weight 57.8 kg Geraldine Araya, CARLYLE 07/11/2024 6:52 PM Signed Subjective Roseann Marcelo Jackeline is a 59 year old female with a past medical history of CAD, hypertension, CKD, and diabetes who presents to express care today for evaluation of congestion, and shortness of breath for the past 3 to 4 days. She denies having any fevers. No known exposure to COVID-19, influenza, or RSV. Review of Systems Constitutional: Negative for chills, diaphoresis and fever. HENT: Negative for congestion, ear pain and sore throat. Eyes: Negative for discharge and redness. Respiratory: Positive for cough, chest tightness and shortness of breath. Skin: Negative for rash and wound. Neurological: Negative for weakness and headaches. All other systems reviewed and are negative. Objective BP 104/74 Pulse 101 Temp 36.8 ?C (98.3 ?F) (Left Tympanic) Resp 16 Wt 57.8 kg (127 lb 6.8 oz) LMP 09/01/2010 SpO2 97% BMI 23.31 kg/m? Physical Exam Vitals reviewed. Constitutional: General: She is not in acute distress. Appearance: Normal appearance. She is normal weight. She is not ill-appearing or toxic-appearing. Comments: The patient appears to be non-toxic, in no acute distress, and resting comfortably on the table. HENT: Head: Normocephalic and atraumatic. Eyes: Extraocular Movements: Extraocular movements intact. Cardiovascular: Rate and Rhythm: Normal rate and regular rhythm. Heart sounds: Normal heart sounds. No murmur heard. No friction rub. No gallop. Pulmonary: Effort: Pulmonary effort is normal. No respiratory distress. Breath sounds: Normal breath sounds. Decreased air movement present. No wheezing. Musculoskeletal: General: Normal range of motion. Cervical back: Normal range of motion. Skin: General: Skin is warm and dry. Findings: No erythema. Neurological: General: No focal deficit present. Mental Status: She is alert and oriented to person, place, and time. Mental status is at baseline. Psychiatric: Mood and Affect: Mood normal. Behavior: Behavior normal. Thought Content: Thought content normal. Assessment and Plan Decreased air movement heard upon auscultation of the lungs. Chest x-ray ordered to rule out pneumonia. Chest x-ray negative. Results discussed with patient. Suspect patient's symptoms are due to viral infection. Patient offered testing for COVID-19, influenza, and RSV but declined. Patient given prescriptions for prednisone and Mucinex and advised to follow-up with primary care as needed. ASSESSMENT/PLAN: 1. Viral URI - ICD9: 465.9, ICD10: J06.9 (primary diagnosis) - Discussed viral etiology and rationale for treatment. - Symptomatic treatment with prn analgesia - Supportive care with fluids and rest 2. Acute cough - ICD9: 786.2, ICD10: R05.1 - XR CHEST 2V FRONTAL/LAT - PREDNISONE 10 MG TABLET - GUAIFENESIN ER 600 MG TABLET, EXTENDED RELEASE 12 HR 3. Chest congestion - ICD9: 786.9, ICD10: R09.89 - XR CHEST 2V FRONTAL/LAT - PREDNISONE 10 MG TABLET - GUAIFENESIN ER 600 MG TABLET, EXTENDED RELEASE 12 HR Medical Decision Making: Problems: Low: Acute, uncomplicated illness or injury Risk: Minimal: Minimal risk from testing/treatment Moderate: Drug management Medical Decision Making Level: 3 - Low I spent a total of 20 minutes on the date of the service which included preparing to see the patient, [id number] patient care, completing clinical documentation, performing a medically appropriate examination, counseling and educating the patient/family/caregiver, and ordering medications, tests, or procedures. CARLYLE Keating Ariana P, PA-C 07/11/2024 6:49 PM Signed A cough is your body's response to something that bothers your throat or airways. Many things can cause a cough. You might cough because of a cold or the flu, bronchitis, or asthma. Smoking, postnasal drip, allergies, and stomach acid that backs up into your throat also can cause coughs. A cough is a symptom, not a disease. Most coughs stop when the cause, such as a cold, goes away. You can take a few steps at home to cough less and feel better. Follow-up care is a kincaid part of your treatment and safety. Be sure to make and go to all appointments, and call your doctor if you are having problems. It's also a good idea to know your test results and keep a list of the medicines you take. How can you care for yourself at home? - Drink lots of water and other fluids. This helps thin the mucus and soothes a dry or sore throat. Honey or lemon juice in hot water or tea (more content not included)... Normal [facility] XR CHEST 2V FRONTAL/LATon XR CHEST 2V FRONTAL/LAT * * *Final Report* * * DATE OF EXAM: Jul 11 2024 6:05PM WOX [id number] - XR CHEST 2V FRONTAL/LAT / PROCEDURE REASON: multiple diagnoses * * * * Physician Interpretation * * * * EXAMINATION: CHEST RADIOGRAPH (2 VIEW FRONTAL and LATERAL) CLINICAL HISTORY: Acute cough Chest congestion MQ: XC2_6 EXAM DATE/TIME: 07/11/2024 6:05 PM COMPARISON: 02/22/2016 chest radiograph. RESULT: Lines, tubes, and devices: None. Lungs and pleura: No focal consolidation, pneumothorax, pleural effusion or decompensated CHF. Cardiomediastinal silhouette: Normal cardiomediastinal silhouette. Bones and soft tissues: No displaced acute fractures are detected. No intra-abdominal free air. IMPRESSION: No acute radiographic abnormality. Barista: PSCB Transcribe Date/Time: Jul 11 2024 6:44P Dictated by : LETI PINEDO MD This examination was interpreted and the report reviewed and electronically signed by: LETI PINEDO MD on Jul 11 2024 6:44PM EST [id number] Normal [facility] XR Chest PA and Lateralon IMPRESSION: No acute radiographic abnormality. Barista: PSCB Transcribe Date/Time: Jul 11 2024 6:44P Dictated by : LETI PINEDO MD This examination was interpreted and the report reviewed and electronically signed by: LETI PINEDO MD on Jul 11 2024 6:44PM EST DIVISION OF RADIOLOGY * * *Final Report* * * DATE OF EXAM: Jul 11 2024 6:05PM WOX [id number] - XR CHEST 2V FRONTAL/LAT / PROCEDURE REASON: multiple diagnoses * * * * Physician Interpretation * * * * EXAMINATION: CHEST RADIOGRAPH (2 VIEW FRONTAL & LATERAL) CLINICAL HISTORY: Acute cough Chest congestion MQ: XC2_6 EXAM DATE/TIME: 07/11/2024 6:05 PM COMPARISON: 02/22/2016 chest radiograph. RESULT: Lines, tubes, and devices: None. Lungs and pleura: No focal consolidation, pneumothorax, pleural effusion or decompensated CHF. Cardiomediastinal silhouette: Normal cardiomediastinal silhouette. Bones and soft tissues: No displaced acute fractures are detected. No intra-abdominal free air. DIVISION OF RADIOLOGY Provider, [facility] - 07/11/2024 * * *Final Report* * * DATE OF EXAM: Jul 11 2024 6:05PM WOX [id number] - XR CHEST 2V FRONTAL/LAT / PROCEDURE REASON: multiple diagnoses * * * * Physician Interpretation * * * * EXAMINATION: CHEST RADIOGRAPH (2 VIEW FRONTAL & LATERAL) CLINICAL HISTORY: Acute cough Chest congestion MQ: XC2_6 EXAM DATE/TIME: 07/11/2024 6:05 PM COMPARISON: 02/22/2016 chest radiograph. RESULT: Lines, tubes, and devices: None. Lungs and pleura: No focal consolidation, pneumothorax, pleural effusion or decompensated CHF. Cardiomediastinal silhouette: Normal cardiomediastinal silhouette. Bones and soft tissues: No displaced acute fractures are detected. No intra-abdominal free air. IMPRESSION IMPRESSION: No acute radiographic abnormality. Barista: PSCB Transcribe Date/Time: Jul 11 2024 6:44P Dictated by : LETI PINEDO MD This examination was interpreted and the report reviewed and electronically signed by: LETI PINEDO MD on Jul 11 2024 6:44PM EST [facility] Radiology Study observation (narrative) [facility] XR Chest PA and LateralOrder ed By: Ccf Provider on 07-11-2024 [facility] CNOVon 05-31-2024 CNOV Office Visit (PNMDNA ) ROSEANN VIVEROS ([id number]) 1965 F [place] Date Time Provider Department 05/31/24 11:00 AM BARBARA BRAN PNIDMIGUELANGEL During your visit today, we recorded the following information about you: Pulse Weight Height 62/minute 58 kg 1.575 m Barbara Bran, OXYGEN THERAPIST.STAVE SAW OPERATOR 05/31/2024 11:29 AM Signed Subjective Roseann Davian Viveros presents to [facility] for a follow up appointment. Since the last visit, Roseann Viveros states the pain has been same. Current pain intensity is 8 on a scale of 0-10. Pain located in Back area and radiates to bilateral legs Pain described as sharp Symptoms interfere with everything.. Pain is exacerbated by trying to get out of bed. Pain is mitigated by medications and heat. The patient is overall improved with the injections by 50%. The medications are partially effective. The patient states the last dose of . Citra was taken a while ago. Well over a month per pt. Robaxin was taken this morning at 7a Patient Entered Questionnaires PROMIS Score Percentiles 02/02/2023 PROMIS Global Health Scale Physical Health Percentile 2 Mental Health Percentile 2 02/02/2023 Physical Health Physical Function Percentile 12 Pain Interference Percentile 5 Percentiles provide an indication of how the patient's score ranks in relation to the general population. Higher percentile rankings indicate better function/quality of life. 50th percentile is the average of the general population and indicates half of respondents had a worse score. > 31st percentile is within normal limits or better * < 31st percentile is at least ? SD worse than population, which may be clinically relevant < 16th percentile is at least 1 SD worse than population and warrants attention Review of Systems Constitutional: (-) Weight Gain (-) Weight Loss (+) Fatigue Cardiovascular: (-) hx heart surgery (-) Pacemaker Respiratory: (+) Shortness of Breath (-) Cough (+) Snoring Gastrointestinal: (-) Incontinence (-) Diarrhea (-) Constipation (-) Nausea/Vomiting Endocrine: (-) Thyroid Disorder (+) Diabetes Hematologic: (-) Prolonged Bleeding (+) Easy Bruising Genitourinary: (-) Incontinence (-) Frequency (-) Urinary Urgency Skin: (-) Open sores/wound Neurologic: (+) Headache (-) Double Vision Psychiatric: (+) Depression (+) Anxiety (-) Personal History of Alcohol or Substance Abuse (-) Family History of Alcohol or Substance Abuse Chief Complaint Patient presents with: Pain Refill Request Physical Examination Pulse 62 Ht 5' 2 (1.58m) Wt 127 lb 13.9 oz (58.0kg) SpO2 97% LMP 09/01/2010 BMI 23.38 kg/(m2). General:well appearing and alert Skin: Skin color, texture, turgor normal, no rashes or lesions HEENT: normal Cardiovascular: Regular, rate and rhythm Lungs: Normal respiratory rate and rhythm, unlabored on room air Musculoskeletal: Back: Tenderness on palpation over the lumbar spine. , Tenderness over the bilateral lumbar paraspinal muscles, Extremities: Extremities normal. No deformities, edema, or skin discoloration Neurological: Mental Status: alert Motor Strength: Motor strength and tone are 5/5 all throughout. Sensory: Not Examined Gait: Normal. Trigger points: lumbosacral spine muscles and gluteal muscles. Assessment Assessment : Patient presents for a follow-up visit Patient has chronic low back pain that radiates down the bilateral lower extremities to the feet Her last transforaminal injections were in 2018. She would like to repeat injections but she has transportation issues Patient takes Citra as needed and Robaxin to help manage her chronic pain She reports no new issues or side effects from medications Encounter Diagnosis ICD-10-CM 1. Degeneration of intervertebral disc of lumbar region with discogenic back pain M51.360 2. Spinal stenosis of lumbar region with neurogenic claudication M48.062 HYDROcodone-acetaminophen (NORCO) 5-325 mg per tablet 3. Spondylolisthesis of lumbar region M43.16 HYDROcodone-acetaminophen (NORCO) 5-325 mg per tablet 4. Radiculopathy, lumbar region M54.16 HYDROcodone-acetaminophen (NORCO) 5-325 mg per tablet 5. DDD (degenerative disc disease), lumbar M51.369 HYDROcodone-acetaminophen (NORCO) 5-325 mg per tablet 02/02/2023 PROMIS CAT Pain Interference PROMIS Pain Interference T-Score (range: 10 - 90) 66 (moderate) PROMIS Pain Interference Percentile 5 PROMIS Adult Short Form-Global Health Score (Mental) 28.4 (Poor) OARRS Report: Reviewed: The patient's OARRS report was reviewed and is consistent with the reported medication use. Plan Injection history was reviewed. Medication use and compliance were reviewed. 1. Continue medication management through the Pain Management [facility] 2. The following approved medica (more content not included)... Normal [facility] PHOSPHORUS INORGANICon 09-22 Phosphate [Mass/Vol] 3.4 mg/dL 2.7 - 4.8 mg/dL [facility] Urinalysis complete panel (U )on 09-23-2023 Bacteria LM.HPF (Urine sed) [#/Area] Negative Negative /HPF [facility] Bilirubin Ql (U) Negative Negative [facility] Clarity (Unsp spec) Clear Clear [facility] Color (U) Yellow Yellow [facility] Epithelial cells LM.HPF (Urine sed) [#/Area] None Seen [facility] Glucose Test strip (U) [Mass/Vol] 3+ Abnormal Negative [facility] Hemoglobin Ql (U) Trace Abnormal Negative [facility] Hyaline casts (Urine sed) [#/Area] 0 /[LPF] 0 /LPF [facility] Ketones Ql (U) Negative Negative [facility] Leukocyte esterase Test strip Ql (U) Trace Abnormal Negative [facility] Nitrite Ql (U) Negative Negative [facility] pH (U) 6.0 [pH] <8.5 [facility] Protein (U) [Mass/Vol] Negative Negative [facility] RBC LM.HPF (Urine sed) [#/Area] 0-2 /HPF 0-2 /HPF [facility] Specific gravity (U) [Rel density] 1.019 1.005 - 1.030 [facility] Urobilinogen Ql (U) 0.2 EU/dL 0.2-1.0 EU/dL [facility] WBC LM.HPF (Urine sed) [#/Area] 0-5 /HPF 0-5 /HPF [facility] Calcium.ionized [Moles/Vol]o n 09-22-2023 Calcium.ionized (Bld) [Mass/Vol] 1.33 mmol/L High 1.08 - 1.30 mmol/L [facility] Calcium.ionized adjusted to pH 7.4 (Bld) [Moles/Vol] 1.32 mmol/L High 1.08 - 1.30 mmol/L [facility] XR Hand - right PA and Later al and Obliqueon 08-14-2023 IMPRESSION: 1. Nonspecific soft tissue tissue swelling at the dorsal metacarpal head level inflammatory or infectious. 2. Mild degenerative changes of the right hand without acute bony abnormality [facility] Transcribe Date/Time: Aug 14 2023 12:41P Dictated by : BORIS GORDON MD This examination was interpreted and the report reviewed and electronically signed by: BORIS GORDON MD on Aug 14 2023 12:44PM [facility] * * *Final Report* * * DATE OF EXAM: Aug 13 2023 4:31PM WOX [id number] - XR HAND 3V PA/LAT/OBL RT / PROCEDURE REASON: Swelling of right hand * * * * Physician Interpretation * * * * HAND RADIOGRAPHS - RIGHT HISTORY: Swelling of right hand TECHNOLOGIST PROVIDED HISTORY (if applicable): redness and swelling in distal 2-3rd MC noticed it yesterday no specific inj TECHNIQUE: XR HAND 3V PA/LAT/OBL RT COMPARISON: Radiographs 06/20/2015 RESULT: Bone mineralization appears normal. Right hand: Mild narrowing of multiple interphalangeal joints. There are no visualized articular erosions. Dorsal soft tissue swelling at the metacarpal head level seen on the lateral view. Narrowing of the first CMC joint DIVISION OF RADIOLOGY Provider, Pam Plummer - 08/14/2023 * * *Final Report* * * DATE OF EXAM: Aug 13 2023 4:31PM WOX 5346 - XR HAND 3V PA/LAT/OBL RT / PROCEDURE REASON: Swelling of right hand * * * * Physician Interpretation * * * * HAND RADIOGRAPHS - RIGHT HISTORY: Swelling of right hand TECHNOLOGIST PROVIDED HISTORY (if applicable): redness and swelling in distal 2-3rd MC noticed it yesterday no specific inj TECHNIQUE: XR HAND 3V PA/LAT/OBL RT COMPARISON: Radiographs 06/20/2015 RESULT: Bone mineralization appears normal. Right hand: Mild narrowing of multiple interphalangeal joints. There are no visualized articular erosions. Dorsal soft tissue swelling at the metacarpal head level seen on the lateral view. Narrowing of the first CMC joint IMPRESSION IMPRESSION: 1. Nonspecific soft tissue tissue swelling at the dorsal metacarpal head level inflammatory or infectious. 2. Mild degenerative changes of the right hand without acute bony abnormality Barista: ÁNGEL Transcribe Date/Time: Aug 14 2023 12:41P Dictated by : BORIS GORDON MD This examination was interpreted and the report reviewed and electronically signed by: BORIS GORDON MD on Aug 14 2023 12:44PM EST [facility] XR Hand - right PA and Later al and ObliqueOrdered By: Ccf Provider on 08-14-2023 [facility] XR Hand - right PA and Later al and Obliqueon 08-13-2023 Radiology Study observation (narrative) [facility] LATRELL SCREENINGon 03-11-2023 [facility] No Panel Informationon 10-05 [facility] XR Cervical spine AP and Lat eral and obliqueon 06-11-2022 IMPRESSION: Degenera tive changes as described Barista: PSCB Transcribe Date/Time: Jun 11 2022 2:08P Dictated by : BORIS POLANCO MD This examination was interpreted and the report reviewed and electronically signed by: BORIS POLANCO MD on Jun 11 2022 2:10PM [facility] * * *Final Report* * * DATE OF EXAM: Jun 09 2022 9:34AM MDO 5311 - XR CERVICAL 4V AP/LAT/OBL / PROCEDURE REASON: M50.30-DDD (degenerative disc disease), cervical * * * * Physician Interpretation * * * * HISTORY: DDD (degenerative disc disease), cervical DDD CERVICAL TECHNIQUE: Upright AP lateral and both oblique views COMPARISON: None RESULT: There is marked degenerative change at the C5-6 level with marked disc space narrowing, posterior vertebral body spurring, and 2 mm retrolisthesis of C5 on C6. There is bilateral neural foraminal encroachment by spurring at C5-6, marked on the right and moderate on the left. The other levels appear intact. [facility] Provider, [facility] - 06/11/2022 * * *Final Report* * * DATE OF EXAM: Jun 09 2022 9:34AM MDO 5311 - XR CERVICAL 4V AP/LAT/OBL / PROCEDURE REASON: M50.30-DDD (degenerative disc disease), cervical * * * * Physician Interpretation * * * * HISTORY: DDD (degenerative disc disease), cervical DDD CERVICAL TECHNIQUE: Upright AP lateral and both oblique views COMPARISON: None RESULT: There is marked degenerative change at the C5-6 level with marked disc space narrowing, posterior vertebral body spurring, and 2 mm retrolisthesis of C5 on C6. There is bilateral neural foraminal encroachment by spurring at C5-6, marked on the right and moderate on the left. The other levels appear intact. IMPRESSION IMPRESSION: Degenerative changes as described Barista: PSCB Transcribe Date/Time: Jun 11 2022 2:08P Dictated by : BORIS POLANCO MD This examination was interpreted and the report reviewed and electronically signed by: BORIS POLANCO MD on Jun 11 2022 2:10PM [facility] XR Cervical spine AP and Lat eral and obliqueOrdered By: Ccf Provider on 06-11-2022 [facility] XR CERV OTHER 4V AP/LAT/OBLo n 06-09-2022 [facility] XR CERVICAL 4V AP/LAT/OBLon 06-09-2022 XR CERVICAL 4V AP/LAT/OBL * * *Final Report* * * DATE OF EXAM: Jun 09 2022 9:34AM MACI 5311 - XR CERVICAL 4V AP/LAT/OBL / PROCEDURE REASON: M50.30-DDD (degenerative disc disease), cervical * * * * Physician Interpretation * * * * HISTORY: DDD (degenerative disc disease), cervical DDD CERVICAL TECHNIQUE: Upright AP lateral and both oblique views COMPARISON: None RESULT: There is marked degenerative change at the C5-6 level with marked disc space narrowing, posterior vertebral body spurring, and 2 mm retrolisthesis of C5 on C6. There is bilateral neural foraminal encroachment by spurring at C5-6, marked on the right and moderate on the left. The other levels appear intact. IMPRESSION: Degenerative changes as described Barista: ÁNGEL Transcribe Date/Time: Jun 11 2022 2:08P Dictated by : BORIS POLANCO MD This examination was interpreted and the report reviewed and electronically signed by: BORIS POLANCO MD on Jun 11 2022 2:10PM EST [id number] Normal [facility] XR Cervical spine AP and Lat eral and obliqueon 06-09-2022 Radiology Study observation (narrative) [facility] EXERCISE STRESS ECG (WITHOUT IMAGING)on 03-23-2022 EXERCISE STRESS ECG (WITHOUT IMAGING) Stress ECG Report: Exercise Stress ECG (without Imaging) [facility] Date of service: 03/23/2022 11:21:20 AM Ordering physician: SAKSHI LI supervisory training specialist: Laurie Kapadia Barbering Instructor: Roxane Winchester Interpreting physician: El Reyes DO Patient name: MRS. ROSEANN VIVEROS Age: 56 years Gender: F Indication: Shortness of breath Stress ECG Conclusion: Conclusion: Non-diagnostic due to inadequate HR response Stress ECG Summary: The patient's resting heart rate was 59 bpm and blood pressure was 104/68 mmHg. The patient exercised according to the Tk protocol. The estimated end-exercise MET level achieved using the FRIEND equation was 7.9, which is within the 50th to 75th percentile for age and sex. The estimated end-exercise MET level achieved using the previous ACSM equation was 9.6. The test was terminated due to leg fatigue and general fatigue and the total exercise time was 8 minutes and 30 seconds. Other symptoms during the test included leg fatigue. The maximum heart rate was 120 bpm, which is 74% of the predicted heart rate for age. This is an inadequate heart rate response. Peak blood pressure was 144/76 mmHg. The double product achieved was [address]. Medications: Last Used IMDUR GLUCOPHAGE ZOLOFT LIPITOR WELLBUTRIN JARDIANCE TENORMIN ASPIRIN LISINOPRIL Resting ECG: Normal Sinus Rhythm Symptoms at rest: No symptoms Exercise Protocol: Tk Stress Exercise Table: +-----+ +--------+------ ----+---+---+---+----+----+ Stage Speed (MPH) Grade(%) Time (min) HR SYS [place] RPE METS +-----+ +--------+------ ----+---+---+---+----+----+ 1 1.7 10.0 3.0 98 120 66 14.0 4.2 +-----+ +--------+------ ----+---+---+---+----+----+ 2 2.5 12.0 6.0 106 144 76 15.0 6.1 +-----+ +--------+------ ----+---+---+---+----+----+ +-----+ +---------+----- -----+---+---+---+----+----+ Speed (MPH) Grade (%) Time (min) HR SYS [place] RPE METS +-----+ +---------+----- -----+---+---+---+----+----+ Final 3.4 14.0 8.50 120 144 76 19.0 7.9 +-----+ +---------+----- -----+---+---+---+----+----+ Recovery Table: +------+ +---+---+---+ Stage Time (min) HR SYS [place]IX +------+ +---+---+---+ 1 1.0 110 140 80 +------+ +---+---+---+ 2 3.0 79 124 68 +------+ +---+---+---+ 3 5.0 71 136 72 +------+ +---+---+---+ 4 7.0 70 120 68 +------+ +---+---+---+ Stress Observations: Resting HR: 59 bpm Peak HR: 120 bpm (74% MPHR) Resting BP: 104 / 68 mmHg Peak BP: 144 / 76 mmHg Total Exercise Time: 8 minutes 30 seconds METS achieved: 7.9 Chronotropic response index (CRI): 0.59 Heart rate recovery (HRR): 10 bpm Rate Pressure Product (RPP): 27218 Wise Treadmill Score: 8.5 Stress Exercise Observations: Reason for test termination: leg fatigue and general fatigue, Symptoms during test: Other symptoms during the test included leg fatigue, Heart rate response: Inadequate heart rate response, Abnormal CRI (<= 0.8 Not on B Farida) and Abnormal HRR (9-12 or 13-[address]/EC), Blood pressure response: Normal BP response, ST segment and T wave changes: No ST changes, Wise Treadmill Score: Normal Wise Treadmill Score (>=5) and Arrhythmias: PACs Comments: pt took atenelol yesteday morning, none today IMPORTANT NOTE REGARDING ESTIMATED MET VALUES: Effective 04/07/2020, the reference equation for determining estimated MET values for [facility] stress tests changed. Comparison of test results before and after that date may show a change in estimated MET values for peak/max exercise despite a test duration that is similar in length. The validity of the new FRIEND equation for exercise METS is endorsed by the [place] [employer]. Patricia P, Eric LA, Ronnie R, Eliezer J, Mike J. New Generalized Equation for Predicting Maximal Oxygen Uptake (from the Fitness Registry and the Importance of Exercise National Database). The [place] Journal of Cardiology. 2017;120(4):688-692). Final Stress Consulting Technical Director Report: Exercise Stress ECG (without Imaging) [facility] Date of service: 03/23/2022 11:21:20 AM Supervising physician: Jayla Hubbard MD PATIENT: Name: MRS. ROSEANN VIVEROS Age: 56 years Gender: F The supervising physician was in the department and immediately available. Final CC [facility] : [id number] See Link below for Image Normal [facility] 03-20-2022 CNPN Telephone (CDLBME) ROSEANN VIVEROS ([id number]) 1965 F UPA Date Time Provider Department 03/20/22 LAURIE KAPADIA [facility] During your visit today, we recorded the following information about you: Laurie Kapadia RN 03/20/2022 1:01 PM Signed Left message regarding reminder for stress test on Wednesday and given instructions Allergies As of Date: 03/20/2022 Noted Allergy Reaction BEES 08/29/2008 BEE VENOM PROTEIN (HONEY BEE) 05/27/2018 16 - Unknown 7 - Swelling Date Reviewed: 03/16/2022 Reviewed by: Lilo Padgett - Fully Assessed Reason for Visit: Reminder Call [[id number]] Prescriptions as of 03/20/2022 - HYDROcodone-acetaminophen (NORCO) 5-325 mg per tablet Take 1-2 tablets by mouth every 6 hours as needed for up to 7 days. - methocarbamol (ROBAXIN-750) 750 mg tablet Take 1 tablet by mouth three times daily. - ergocalciferol 50,000 unit capsule (VITAMIN D2, DRISDOL) Take 1 capsule by mouth one time a week. - isosorbide mononitrate ER (IMDUR) 60 mg 24 hr tablet Take 1 tablet by mouth once daily. Take w/ 30 mg tablet for total daily dose of 90 mg. - isosorbide mononitrate ER (IMDUR) 30 mg 24 hr tablet Take 1 tablet by mouth once daily. Take w/ 60 mg tablet for total daily dose of 90 mg. - methocarbamol (ROBAXIN-750) 750 mg tablet Take 1 tablet by mouth three times daily. - fenofibrate nanocrystallized (TRICOR) 48 mg tablet Take 1 tablet by mouth once daily. - blood sugar diagnostic (TRUE METRIX GLUCOSE TEST STRIP) test strip testing once daily DX E11.9 Insulin No - metFORMIN (GLUCOPHAGE) 1,000 mg tablet Take 0.5 tablets by mouth twice daily with meals. GFR - 40 - meclizine (ANTIVERT) 25 mg tab Take 1 tablet by mouth three times daily as needed. - glimepiride (AMARYL) 2 mg tablet Take 1 tablet by mouth daily with breakfast. - sertraline (ZOLOFT) 50 mg tablet Take 1 tablet by mouth once daily. - atorvastatin (LIPITOR) 80 mg tablet Take 1 tablet by mouth once daily. - buPROPion SR (ZYBAN SR; WELLBUTRIN SR) 150 mg 12 hr tablet Take 1 tablet by mouth every morning and 1 tablet at dinner - Lancets lancets Test blood sugar(s) One time daily. Dx: Type 2 DM - Controlled E11.9 Insulin: No. - empagliflozin (JARDIANCE) 10 mg tablet Take 1 tablet by mouth daily with breakfast. - nitroglycerin sublingual (NITROQUICK) 0.4 mg SL tablet DISSOLVE 1 (ONE) TABLET UNDER THE TONGUE NEEDED FOR CHEST PAIN. MAY REPEAT EVERY 5 MINUTES IF NEEDED; MAX OF 3 DOSES. IF NO RELIEF, COURTNEY - atenolol (TENORMIN) 50 mg tablet Take 1 tablet by mouth once daily. - aspirin, enteric coated (ASPIRIN, ENTERIC COATED) 81 mg EC tablet Take 1 tablet by mouth once daily. - Blood Pressure Monitor Use as directed, Monitor and arm cuff. Dx: I25.119, N18.30, I.10 - blood sugar diagnostic (BLOOD GLUCOSE TEST) test strip Test blood sugar(s) 1 times daily. Dx: Type 2 DM - Controlled E11.9 Insulin: No - alogliptin (NESINA) 25 mg tab Take 1 tablet by mouth once daily. - UNILET SUPER THIN LANCETS 30 [facility] USE TO TEST BLOOD SUGAR EVERY DAY Problem List As Of Date 03/20/2022 Noted Resolved Lumbago [M54.50] 10/02/2011 09/04/2016 Pain in joint, shoulder region [M25.519] 10/20/2011 09/04/2016 Disorders of bursae and tendons in shoulder reg*10/20/2011 09/04/2016 Diabetes mellitus (HCC) [E11.9] 03/25/2012 07/06/2020 Hyperlipidemia [E78.5] 03/25/2012 Chest pain [R07.9] 09/22/2012 07/06/2020 Numbness and tingling [R20.0, R20.2] 09/22/2012 09/04/2016 Lateral epicondylitis of elbow [M77.10] 06/19/2013 09/04/2016 Lumbar stenosis [M48.061] 06/08/2014 DDD (degenerative disc disease), lumbar [M51.36]06/08/2014 Carpal tunnel syndrome, bilateral [G56.03] 08/18/2016 Anxiety [F41.9] 08/31/2016 Coronary artery disease involving [place]*08/31/2016 Radiculopathy, lumbar region [M54.16] 10/14/2016 Spondylolisthesis of lumbar region [M43.16] 10/14/2016 Spinal stenosis of lumbar region with neurogeni*06/01/2017 Controlled type 2 diabetes mellitus without com*04/10/2018 Spondylolisthesis [M43.10] 07/22/2018 Encounter Status:Closed by LAURIE KAPADIA on 03/20/22 [facility] KIDNEY/BLADDERon 03-03-20 [facility] Urinalysis complete panel (U )on 03-02-2022 Bacteria LM.HPF (Urine sed) [#/Area] Rare Abnormal None Seen /HPF [facility] Bilirubin Ql (U) Negative Negative [facility] Clarity (Unsp spec) Clear Clear [facility] Color (U) Light Yellow Yellow [facility] Epithelial cells LM.HPF (Urine sed) [#/Area] Few [facility] Glucose Test strip (U) [Mass/Vol] 3+ Abnormal Negative [facility] Hemoglobin Ql (U) Negative Negative [facility] Ketones Ql (U) Negative Negative [facility] Leukocyte esterase Test strip Ql (U) 2+ Abnormal Negative [facility] Nitrite Ql (U) Positive Abnormal Negative [facility] pH (U) 5.0 [pH] 5.0 - 8.0 [facility] Protein (U) [Mass/Vol] Negative Negative [facility] RBC LM.HPF (Urine sed) [#/Area] 0-3 /HPF 0-3 /HPF [facility] Specific gravity (U) [Rel density] 1.016 1.005 - 1.030 [facility] Urobilinogen Ql (U) Negative Negative [facility] WBC LM.HPF (Urine sed) [#/Area] 0-5 /HPF 0-5 /HPF [facility] US THYROID/PARATHYROID (POC) ENDO USE ONLYon 01-05-2022 [facility] FNA 1st Biopsy w/ USon 08-01 FNA 1st Biopsy w/ US [facility] Services [address] [place] [address] FNA 1st Biopsy w/ US MR#: [id number] Acct: [id number] Name: ROSEANN VIVEROS Rep #: [id number] : 1965 F 56 From: Rob del angel MD PCP: Dr. Garrett Ventura MD Status: REG CLI Study: FNA 1st Biopsy w/ US Date of Exam: 08/01/21 Exam# [id number] Ordering Dr: Bonifacio Scherer MD STUDY: ULTRASOUND GUIDED RIGHT THYROID BIOPSY. REASON FOR EXAM: Female, 56 years old. THYROID NODULE TECHNIQUE: Under direct sonographic guidance, the surgeon performed 3 biopsies of the complex cystic nodule in the right lobe of the thyroid. COMPARISON: None. _ _ US/FNA 1st Biopsy w/ US IMPRESSION: Successful ultrasound-guided biopsy of the complex solid and cystic nodule in the right lobe of the thyroid. Electronically Signed: Rob Zepeda MD at 14:14 EST , CC: Dr. Bonifacio Scherer MD; Dr. Garrett Ventura MD Barista: Signed Normal [facility] Operative Reporton 2 Operative Report [facility] Medical Records Department [address] [place] [address] Operative Report 08/01/21 1409 MR#: [id number] Acct: [id number] Name: ROSEANN VIVEROS Rep #: [id number] : 1965 56 From: Bonifacio Scherer MD PCP: Dr. Garrett Ventura MD Status:REG [facility] Location: [place] Problems Associated Problem List Diagnoses (1) Uninodular goiter: Report of Operation Date of Procedure: 08/01/21 Pre-Operative Diagnosis: Uninodular goiter Post-Operative Diagnosis: Same Surgery/Procedure Performed:: Ultrasound-guided fine-needle aspiration of uninodular goiter Surgeon: Bonifacio Scherer courtesy driver: None Type of Anesthesia: Local Description of Procedure: Patient was brought into the ultrasound vein ultrasound of the right thyroid gland revealed the nodule in question prepped skin with alcohol. Injected 1% lidocaine plain. Under ultrasound guidance I aspirated out a cyst. Under ultrasound guidance I took 3 passes with a 22-gauge needle. These were handed off to the pathologist. The patient did not tolerate this procedure well at all she was moving around quite a bit I would have like to done a few more passes but it was clear she was in no shape to undergo anything further. I will wait to see what we get back from this. She may need to have a referral to an endocrine surgeon for further evaluation. Admit VTE Documentation VTE Present on Admission: No VTE Mechan Device Prophylaxis: None VTE Pharm Prophylaxis ordered?: No Reason prophylaxis not ordered:: Treatment Not Indicated 08/01/21 1411 Cosigner Signature (if applicable): CC: Dr. Bonifacio Scherer MD; Dr. Garrtet Ventura MD Signed Normal [facility] Special Stain Group IIon Special Stain Group II OPERATION: Ultrasound-guided FNA right thyroid nodule PRE-OP DIAGNOSIS: Right thyroid nodules TISSUE SUBMITTED: A - Thyroid cyst fluid, ultrasound- guided FNA, B - Thyroid nodule, ultrasound- guided FNA (smears) A. Thyroid nodule, ultrasound-guided FNA (cytospin and cell block): Consistent with cyst contents. See comment. B. Thyroid nodule, ultrasound-guided FNA (smears and cell block): Nondiagnostic specimen. See comment. JOSEPH:marci 08/04/2021 The specimen is evaluated at the time of biopsy by Dr. Gomez. Immediate Evaluation: B. Predominantly blood. Rare follicular cells noted. A. The specimen predominantly consists of macrophages. Follicular cells are not identified. B. The specimen consists of rare follicular cells. The specimen is nondiagnostic due to lack of adequate number of follicular cells. Correlation with clinical, radiologic findings and appropriate follow up are necessary. Please make reference to previous specimen ([id number]) right thyroid nodule, FNA with diagnosis of ???nondiagnostic specimen.??? Slides are reviewed. A - Received is 5 ml of grayish-brown turbid fluid labeled with the patient's name and and designated per the requisition as right thyroid nodule. Submitted for cytology preparation including cell block. B - Received in three passes is 0.5 ml of fluid labeled with the patient's name, and designated right thyroid. 12 imprints and 5 paps are made from the submitted fluid and the rest is added to CytoLyt for cell block preparation. Submitted for cytology study. / SJ:marci 08/01/2021 TC: Cannot code CPT: 84747 x2, 77644 x2, 93684 ADDENDUM This addendum is added to incorporate an outside pathology consultation report. The case was examined at [facility] (#[id number]) and the following diagnosis was rendered. Right thyroid nodule, ultrasound-guided fine needle aspiration: Nondiagnostic aspirate sample. Insufficient follicular cells for diagnosis. Cyst contents. Please see complete above mentioned consultation report in EMR ADDENDUM (Continued) Normal [facility] Comment on above: Performed By: #### PSSII #### [facility] [place], [address] Special Stain Group IIon Special Stain Group II OPERATION: Fine needle aspiration right thyroid PRE-OP DIAGNOSIS: Right thyroid nodule TISSUE SUBMITTED: A - FNA right thyroid nodule fluid, B ??? FNA right thyroid slides x4 A. Right thyroid nodule fluid, FNA (cytospin and cell block): Negative for malignant cells. See comment. B. Right thyroid nodule, FNA (smears): Nondiagnostic specimen. See comment. SJ:rg 07/09/2021 A. The specimen is paucicellular and shows rare follicular cells, histiocytes and macrophages. B. The smears are acellular. Follicular cells are not seen. A B. The specimens are nondiagnostic due to lack of adequate number of follicular cells. Correlation with clinical, radiologic findings and appropriate follow up are necessary. Case has been reviewed in consultation with Dr. Turner who concurs with the above diagnosis. IDC:AM Slides are reviewed. A - Received is 15 ml of yellow cloudy fluid labeled with the patient's name and and designated per the requisition as right thyroid nodule. Submitted for cytology preparation including cell block. B - Received are four smears labeled with the patient's name and designated per the requisition as right thyroid nodule. Submitted for staining. / rg 07/08/2021 TC: Cannot code CPT: 24967, 46920 x2 ADDENDUM This addendum is added to incorporate an outside pathology consultation report. The case was examined at [facility] (#[id number]) and the following diagnosis was rendered. Right thyroid nodule, fine needle aspiration: Nondiagnostic aspirate sample. Insufficient follicular cells for diagnosis. Cyst contents. Please see complete above mentioned consultation report in EMR Normal [facility] Comment on above: Performed By: #### PSSII #### [facility] [address] [place], [place], [id number] XR Wrist - left PA and Later al and Obliqueon 07-07-2020 IMPRESSION: DJD as described Barista: ÁNGEL Transcribe Date/Time: Jul 07 2020 3:47A Dictated by : KURT MCMAHON MD This examination was interpreted and the report reviewed and electronically signed by: KURT MCMAHON MD on Jul 07 2020 3:48AM [facility] * * *Final Report* * * DATE OF EXAM: Jul 06 2020 12:11PM WOX 5270 - XR WRIST 3V PA/LAT/OBL LT / PROCEDURE REASON: Wrist pain, left * * * * Physician Interpretation * * * * EXAMINATION: XR WRIST 3V PA/LAT/OBL LT CLINICAL HISTORY: Wrist pain Technique: XR WRIST 3V PA/LAT/OBL LT -- LEFT with 3 views on 3 images Comparison: None RESULT: No acute fracture is identified. There is mild DJD of the thumb CMC joint with joint space narrowing and osteophytes. Cystic change in the capitate likely degenerative in nature. The soft tissue structures are unremarkable. DIVISION OF RADIOLOGY Provider, Nalini Thelma Plummer - 07/07/2020 * * *Final Report* * * DATE OF EXAM: Jul 06 2020 12:11PM WOX 5270 - XR WRIST 3V PA/LAT/OBL LT / PROCEDURE REASON: Wrist pain, left * * * * Physician Interpretation * * * * EXAMINATION: XR WRIST 3V PA/LAT/OBL LT CLINICAL HISTORY: Wrist pain Technique: XR WRIST 3V PA/LAT/OBL LT -- LEFT with 3 views on 3 images Comparison: None RESULT: No acute fracture is identified. There is mild DJD of the thumb CMC joint with joint space narrowing and osteophytes. Cystic change in the capitate likely degenerative in nature. The soft tissue structures are unremarkable. IMPRESSION IMPRESSION: DJD as described Barista: ÁNGEL Transcribe Date/Time: Jul 07 2020 3:47A Dictated by : KURT MCMAHON MD This examination was interpreted and the report reviewed and electronically signed by: KURT MCMAHON MD on Jul 07 2020 3:48AM EST [facility] XR Wrist - left PA and Later al and ObliqueOrdered By: [facility] Provider on 07-07-2020 [facility] XR Wrist - left PA and Later al and Obliqueon 07-06-2020 Radiology Study observation (narrative) [facility] CNOVon 09-30-2017 CNOV Office Visit (AGCARDWST) Óscar VIVEROS ([id number]) 1965 FDate Time Provider Department09/30/17 2:30 PM EDVIN GRAY During your visit today, we recorded the following information about you: Pulse Blood pressure Weight 73/minute 99/59 65.2 kgEdvin Gray MD 09/30/2017 5:35 PM SignedPERTINENT CARDIAC HISTORYChest Pedro - moderate single-vesselADHERENCE TO GUIDELINESACE-I or ARB for HF with prior LVEFANDlt;40 (NQF 0081) - N/AASA or Plavix for ASHD (NQF 0067) - metBeta farida for ASHD with prior [place] or prior LVEFANDlt;40 (NQF 0070) - N/ABeta farida for HF with prior LVEFANDlt;40 (NQF 0083) - N/AACE-I or ARB for ASHD with DM or prior LVEFANDlt;40 (NQF 0066) - metStatin therapy for ASHD or FHL or DM - metBMI documented and plan if ANDgt;25 (NQF 0421) - lifestyle recommendation formTobacco use screening and referral (NQF 0028) - lifestyle recommendation formRecommendation for whole food, plant based diet - lifestyle recommendation formCLINICAL IMPRESSION/PLAN:Roseann Viveros is doing reasonably well. She has been advised to continue hercurrent medication. If there is any increase in the chest pain frequency, wecan consider adding diltiazem. She's been encouraged to stay on her nitrates.I will see her in 12 months or as needed.Written and verbal health teaching given to patient, patient verbalizesunderstanding and agrees with treatment plan.DIAGNOSIS FOR VISIT:Chest painASHDHISTORY OF PRESENT ILLNESSRoseann Viveros returns for follow-up of chest pain and hypertension. Shecontinues to have intermittent episodes of chest discomfort which areresponsive to nitroglycerin. The pattern is unchanged. Her exercise tolerancehas been stable. She continues to smoke a few cigarettes per day.She denies orthopnea. She's had minimal edema. She's had no syncope,palpitations, TIAs, amaurosis or claudication.ALLERGIES:ALLERGIESAl lergen Reactions- BeesCURRENT OUTPATIENT MEDICATIONS:meclizine (ANTIVERT) 25 mg tab Take 1 tablet by mouth three times daily asneeded.nitroglycerin sublingual (NITROQUICK) 0.4 mg SL tablet DISSOLVE 1 (ONE) TABLETUNDER THE TONGUE NEEDED FOR CHEST PAIN. MAY REPEAT EVERY 5 MINUTES IFNEEDED; MAX OF 3 DOSES. IF NO RELIEF, CALatorvastatin (LIPITOR) 80 mg tablet Take 1 tablet by mouth once daily.baclofen (LIORESAL) 10 mg tablet Take 1 tablet by mouth twice daily.UNILET SUPER THIN LANCETS 30 gauge misc USE TO TEST BLOOD SUGAR EVERY DAYalogliptin 25 mg tab TAKE 1 TABLET BY MOUTH EVERY DAYFREESTYLE LITE STRIPS test strip USE TO TEST BLOOD SUGAR EVERY DAYatenolol (TENORMIN) 50 mg tablet TAKE 1 TABLET BY MOUTH EVERY DAYglimepiride (AMARYL) 1 mg tablet TAKE 1 TABLET BY MOUTH EVERY DAY WITHBREAKFASTfenofibrate nanocrystallized (TRICOR) 48 mg tablet TAKE 1 TABLET EVERY DAYblood sugar diagnostic (BLOOD GLUCOSE TEST) test strip Test blood sugar(s) 1times daily. Dx:E11.9. Insulin: No. FREESTYLE LITELancets lancets Test blood sugar(s) One time daily. Dx: Type 2 DM - GhalqimrocL96.9 Insulin: No. Unilet Super Thin 30G Lancetsisosorbide mononitrate ER (IMDUR) 60 mg 24 hr tablet Take 2 tablets by mouthonce daily.lisinopril (ZESTRIL, PRINIVIL) 5 mg tablet Take 0.5 tablets by mouth oncedaily.metFORMIN (GLUCOPHAGE) 1,000 mg tablet Take 1 tablet by mouth daily at bedtime.meloxicam (MOBIC) 15 mg tablet TAKE 1 TABLET EVERY DAYaspirin, enteric coated (ASPIRIN, ENTERIC COATED) 81 mg EC tablet Take 1 tabletby mouth once daily.gabapentin (NEURONTIN) 400 mg capsule Take 1 capsule by mouth three timesdaily.buPROPion SR (ZYBAN SR; WELLBUTRIN SR) 150 mg 12 hr tablet Take 2 tablets bymouth every morning and 1 tablet at dinnerPHYSICAL EXAMINATION:VITAL SIGNS: BP 99/59 Pulse 73 Wt 143 lb 11.2 oz (65.2kg) LMP 09/21/2010Chest: Clear to percussion and auscultation. Trachea is midline. Air entry isequal. Cardiac: Regular rhythm. S1 and S2 are normal. PMI is nondisplaced.There is a soft systolic ejection murmur. Carotids are brisk with softbilateral bruits. JVP is less than 10 cm. Abdomen: Soft and nontender. Thereare no pulsatile masses or bruits. No liver enlargement. Bowel sounds areactive. Extremities: Trace edema. Pulses are intact and symmetrical.EKG shows sinus rhythm and is within normal limits. There is no significantchange.Recent labs were reviewed. Renal function is mildly impaired. Lipid profile wasmarkedly abnormal. She has subsequently been started on higher dose Lipitor andfollow-up has been scheduled.Electronically Signed:Frances Sauer 2017 3:19 [facility]: Endy Brown MD 09/30/2017 3:19 PM SignedLIFESTYLE CHANGEA healthy lifestyle is the most important component of your overall treatmentplan. Please give serious thought to the following areas and commit to makinglong term changes.EAT A WHOLE FOOD, PLANT BASED DIETThe nutrition your body gets is more important than the medicine you take.What matters most is the overall way you eat. We encourage you to minimize theuse of animal products (which include dairy and all meats except fatty fish)and use whole, unprocessed plant foods to provide your protein, vitamins andother nutrients. We have a lot of information to share with you on this topic. We also hold Shared Medical Appointments, where you can come visit with in the company of other patients and spend over an hour talking aboutthe challenges of changing the way you eat. This is not a ANDquot;dietANDquot;.It is a way of life that you will keep with you.EXERCISE REGULARLYIt is not important to spend hours in the gym, lifting weights and perspiringheavily. A total of 2-3 hours per week of aerobic (causing you to bemoderately short of breath) exercise is sufficient to improve your health.Talk to us before you begin a new exercise program, if you have heart diseaseor experience shortness of breath or chest pain.REDUCE STRESSChronic emotional and physical stress leads to disease. Ways of reducingstress include meditation, visualization, prayer, yoga and other forms ofrelaxation therapy. Consistency is the kincaid. Find a technique that works foryou and do it every day.CULTIVATE RELATIONSHIPSLoneliness and isolation have a major negative impact on health. Seek outothers who can love, care for and nurture you. Avoid hurtful relationships.MAINTAIN IDEAL BODY WEIGHTThe best way to do this is to do all the things above. Our bodies naturallyfind the right weight if we keep moving and feed ourselves the right food. Ifyour BMI is greater than 25, we strongly recommend a referral to a weightmanagement program. Please speak to us or your family physician aboutavailable programs.AVOID NICOTINE IN ALL FORMSThis includes all tobacco products, whether chewed, smoked, vaped, or rubbed onthe skin. Smoking cessation programs, which can make use of tobaccosubstitutes, medications to suppress cravings and behavior management, areavailable. Please contact your family physician about programs in your area.Referring Provider: EDVIN GRAY [[id number]]Allergies As of Date: 09/30/2017 Noted Allergy ReactionBEES 08/29/2008Date Reviewed: 09/30/2017Reviewed by: Padmini (Rn) ARVIND Abdul - Fully AssessedReason for Visit: Established Patient [175]Primary Visit Diagnosis:Chest pain, unspecified type [R07.9] Other Visit Diagnosis:ASHD (arteriosclerotic heart disease) [I25.10]Prescriptions as of 09/30/2017 Sig: MECLIZINE 25 MG TABLET Take 1 tablet by mouth three * NITROGLYCERIN 0.4 MG SUBLINGU* DISSOLVE 1 (ONE) TABLET UNDER* ATORVASTATIN 80 MG TABLET Take 1 tablet by mouth once d* BACLOFEN 10 MG TABLET Take 1 tablet by mouth twice * UNILET SUPER THIN LANCETS 30 * USE TO TEST BLOOD SUGAR EVERY* ALOGLIPTIN 25 MG TABLET TAKE 1 TABLET BY MOUTH EVERY * FREESTYLE LITE STRIPS USE TO TEST BLOOD SUGAR EVERY* ATENOLOL 50 MG TABLET TAKE 1 TABLET BY MOUTH EVERY * GLIMEPIRIDE 1 MG TABLET TAKE 1 TABLET BY MOUTH EVERY * FENOFIBRATE NANOCRYSTALLIZED * TAKE 1 TABLET EVERY DAY BLOOD SUGAR DIAGNOSTIC STRIPS Test blood sugar(s) 1 times d* LANCETS Test blood sugar(s) One time * ISOSORBIDE MONONITRATE ER 60 * Take 2 tablets by mouth once * LISINOPRIL 5 MG TABLET Take 0.5 tablets by mouth onc* METFORMIN 1,000 MG TABLET Take 1 tablet by mouth daily * MELOXICAM 15 MG TABLET TAKE 1 TABLET EVERY DAY ASPIRIN 81 MG TABLET,DELAYED * Take 1 tablet by mouth once d* GABAPENTIN 400 MG CAPSULE Take 1 capsule by mouth three* BUPROPION HCL SR 150 MG TABLE* Take 2 tablets by mouth every*Problem List As Of Date 09/30/2017 Noted Resolved Lumbago [M54.5] INVALID FOR*09/04/2016 Pain in joint, shoulder region [M25.519] INVALID FOR*09/04/2016 Disorders of bursae and tendons in shoulder reg*INVALID FOR*09/04/2016 Diabetes mellitus [E11.9] INVALID FOR* Hyperlipidemia [E78.5] INVALID FOR* Chest pain [R07.9] INVALID FOR* Numbness and tingling [R20.0, R20.2] INVALID FOR*09/04/2016 Lateral epicondylitis of elbow [M77.10] INVALID FOR*09/04/2016 Lumbar stenosis [M48.061] INVALID FOR* DDD (degenerative disc disease), lumbar [M51.36]INVALID FOR* Carpal tunnel syndrome, bilateral [G56.03] INVALID FOR* Anxiety [F41.9] INVALID FOR* Coronary artery disease involving [place]*INVALID FOR* Radiculopathy, lumbar region [M54.16] INVALID FOR* Spondylolisthesis of lumbar region [M43.16] INVALID FOR* Spinal stenosis of lumbar region with neurogeni*INVALID FOR* Other instructions from your clinician: LIFESTYLE CHANGE A healthy lifestyle is the most important component of your overall treatment plan. Please give serious thought to the following areas and commit to making filler leaf cutter long changes. EAT A WHOLE FOOD, PLANT BASED DIET The nutrition your body gets is more important than the medicine you take. What matters most is the overall way you eat. We encourage you to minimize the use of animal products (which include dairy and all meats except fatty fish) and use whole, unprocessed plant foods to provide your protein, vitamins and other nutrients. We have a lot of information to share with you on this topic. We also hold Shared Medical Appointments, where you can come visit with Dr. Gray in the company of other patients and spend over an hour talking about the challenges of changing the way you eat. This is not a diet. It is a way of life that you will keep with you. EXERCISE REGULARLY It is not important to spend hours in the gym, lifting weights and perspiring heavily. A total of 2-3 hours per week of aerobic (causing you to be moderately short of breath) exercise is sufficient to improve your health. Talk to us before you begin a new exercise program, if you have heart disease or experience shortness of breath or chest pain. REDUCE STRESS Chronic emotional and physical stress leads to disease. Ways of reducing stress include meditation, visualization, prayer, yoga and other forms of relaxation therapy. Consistency is the kincaid. Find a technique that works for you and do it every day. CULTIVATE RELATIONSHIPS Loneliness and isolation have a major negative impact on health. Seek out others who can love, care for and nurture you. Avoid hurtful relationships. MAINTAIN IDEAL BODY WEIGHT The best way to do this is to do all the things above. Our bodies naturally find the right weight if we keep moving and feed ourselves the right food. If your BMI is greater than 25, we strongly recommend a referral to a weight management program. Please speak to us or your family physician about available programs. AVOID NICOTINE IN ALL FORMS This includes all tobacco products, whether chewed, smoked, vaped, or rubbed on the skin. Smoking cessation programs, which can make use of tobacco substitutes, medications to suppress cravings and behavior management, are available. Please contact your family physician about programs in your area. Status:Closed by EDVIN GRAY MD on 09/30/17 [facility] PROGRESSon 09-30-2017 PROGRESS HNO ID: [id number] thor: Edvin Smith: (none)Author Type: PhysicianType: Progress NotesFiled: 09/30/2017 5:35 PMNote Text:PERTINENT CARDIAC HISTORYChest painHLHTNDMASHD - moderate single-vesselADHERENCE TO GUIDELINESACE-I or ARB for HF with prior LVEF<40 (NQF 0081) - N/AASA or Plavix for ASHD (NQF 0067) - metBeta farida for ASHD with prior [place] or prior LVEF<40 (NQF 0070) - N/ABeta farida for HF with prior LVEF<40 (NQF 0083) - N/AACE-I or ARB for ASHD with DM or prior LVEF<40 (NQF 0066) - metStatin therapy for ASHD or FHL or DM - metBMI documented and plan if >25 (NQF 0421) - lifestyle recommendation formTobacco use screening and referral (NQF 0028) - lifestyle recommendationformRecommendation for whole food, plant based diet - lifestyle recommendationformCLINICAL IMPRESSION/PLAN:Roseann Viveros is doing reasonably well. She has been advised tocontinue her current medication. If there is any increase in the chestpain frequency, we can consider adding diltiazem. She's been encouraged tostay on her nitrates.I will see her in 12 months or as needed.Written and verbal health teaching given to patient, patient verbalizesunderstanding and agrees with treatment plan.DIAGNOSIS FOR VISIT:Chest painASHDHISTORY OF PRESENT ILLNESSRoseann Viveros returns for follow-up of chest pain and hypertension. Shecontinues to have intermittent episodes of chest discomfort which areresponsive to nitroglycerin. The pattern is unchanged. Her exercisetolerance has been stable. She continues to smoke a few cigarettes perday.She denies orthopnea. She's had minimal edema. She's had no syncope,palpitations, TIAs, amaurosis or claudication.ALLERGIES:ALLERGIESAl lergen Reactions- BeesCURRENT OUTPATIENT MEDICATIONS:meclizine (ANTIVERT) 25 mg tab Take 1 tablet by mouth three times daily asneeded.nitroglycerin sublingual (NITROQUICK) 0.4 mg SL tablet DISSOLVE 1 (ONE)TABLET UNDER THE TONGUE NEEDED FOR CHEST PAIN. MAY REPEAT EVERY 5MINUTES IF NEEDED; MAX OF 3 DOSES. IF NO RELIEF, CALatorvastatin (LIPITOR) 80 mg tablet Take 1 tablet by mouth once daily.baclofen (LIORESAL) 10 mg tablet Take 1 tablet by mouth twice daily.UNILET SUPER THIN LANCETS 30 gauge misc USE TO TEST BLOOD SUGAR EVERY DAYalogliptin 25 mg tab TAKE 1 TABLET BY MOUTH EVERY DAYFREESTYLE LITE STRIPS test strip USE TO TEST BLOOD SUGAR EVERY DAYatenolol (TENORMIN) 50 mg tablet TAKE 1 TABLET BY MOUTH EVERY DAYglimepiride (AMARYL) 1 mg tablet TAKE 1 TABLET BY MOUTH EVERY DAY WITHBREAKFASTfenofibrate nanocrystallized (TRICOR) 48 mg tablet TAKE 1 TABLET EVERY DAYblood sugar diagnostic (BLOOD GLUCOSE TEST) test strip Test blood sugar(s)1 times daily. Dx:E11.9. Insulin: No. FREESTYLE LITELancets lancets Test blood sugar(s) One time daily. Dx: Type 2 DM -Controlled E11.9 Insulin: No. Unilet Super Thin 30G Lancetsisosorbide mononitrate ER (IMDUR) 60 mg 24 hr tablet Take 2 tablets bymouth once daily.lisinopril (ZESTRIL, PRINIVIL) 5 mg tablet Take 0.5 tablets by mouth oncedaily.metFORMIN (GLUCOPHAGE) 1,000 mg tablet Take 1 tablet by mouth daily atbedtime.meloxicam (MOBIC) 15 mg tablet TAKE 1 TABLET EVERY DAYaspirin, enteric coated (ASPIRIN, ENTERIC COATED) 81 mg EC tablet Take 1tablet by mouth once daily.gabapentin (NEURONTIN) 400 mg capsule Take 1 capsule by mouth three timesdaily.buPROPion SR (ZYBAN SR; WELLBUTRIN SR) 150 mg 12 hr tablet Take 2 tabletsby mouth every morning and 1 tablet at dinnerPHYSICAL EXAMINATION:VITAL SIGNS: BP 99/59 Pulse 73 Wt 143 lb 11.2 oz (65.2kg) LMP09/21/2010Chest: Clear to percussion and auscultation. Trachea is midline. Airentry is equal. Cardiac: Regular rhythm. S1 and S2 are normal. PMI isnondisplaced. There is a soft systolic ejection murmur. Carotids arebrisk with soft bilateral bruits. JVP is less than 10 cm. Abdomen: Softand nontender. There are no pulsatile masses or bruits. No liverenlargement. Bowel sounds are active. Extremities: Trace edema. Pulsesare intact and symmetrical.EKG shows sinus rhythm and is within normal limits. There is nosignificant change.Recent labs were reviewed. Renal function is mildly impaired. Lipidprofile was markedly abnormal. She has subsequently been started on higherdose Lipitor and follow-up has been scheduled.Electronically Signed:Frances Sauer 2017 3:19 PMCC: Garrett Ventura MD [facility] Vital Signs Date Time Vital Sign Value Performing Clinician Faci kristopher 03-03-2025 10:18-0400 Body mass index (BMI) [Ratio] 23.83 kg/m2 Monica Chinchilla APRN.CNP Work Phone: [facility] 03-03-2025 10:18-0400 Body temperature 97.2 [degF] Monica Chinchilla APRN.CNP Work Phone: [facility] 03-03-2025 10:18-0400 Body weight 59.1 kg Monica Praisler-Wood OXYGEN THERAPIST.STAVE SAW OPERATOR Work Phone: [facility] 03-03-2025 10:18-0400 Diastolic blood pressure 70 mm[Hg] Monica Praisler-Wood OXYGEN THERAPIST.STAVE SAW OPERATOR Work Phone: [facility] 03-03-2025 10:18-0400 Heart rate 66 /min Monica Praisler-Wood OXYGEN THERAPIST.STAVE SAW OPERATOR Work Phone: [facility] 03-03-2025 10:18-0400 Respiratory rate 16 /min Monica Praisler-Wood OXYGEN THERAPIST.[facility] Work Phone: [facility] 03-03-2025 10:18-0400 SaO2% (BldA) [Mass fraction] 95 % Monica Praisler-Wood OXYGEN THERAPIST.STAVE SAW OPERATOR Work Phone: [facility] 03-03-2025 10:18-0400 Systolic blood pressure 122 mm[Hg] Monica Praisler-Wood OXYGEN THERAPIST.STAVE SAW OPERATOR Work Phone: [facility] 12-20-2024 15:01-0400 Body height 157.5 cm Vincent Valle MD Work Phone: [facility] 12-20-2024 15:01-0400 Body mass index (BMI) [Ratio] 23.43 kg/m2 Vincent Valle MD Work Phone: [facility] 12-20-2024 15:01-0400 Body weight 58.1 kg Vincent Valle MD Work Phone: [facility] 12-20-2024 15:01-0400 Heart rate 65 /min Vincent Valle MD Work Phone: [facility] 12-20-2024 15:01-0400 SaO2% (BldA) [Mass fraction] 96 % Vincent Valle MD Work Phone: [facility] 12-18-2024 15:26-0400 Body height 157.5 cm Daksha Anton MD Work Phone: [facility] 12-18-2024 15:26-0400 Body mass index (BMI) [Ratio] 23.45 kg/m2 Daksha Anton MD Work Phone: [facility] 12-18-2024 15:26-0400 Body weight 58.15 kg Daksha Anton MD Work Phone: [facility] 12-18-2024 15:26-0400 Diastolic blood pressure 72 mm[Hg] Daksha Anton MD Work Phone: [facility] 12-18-2024 15:26-0400 Heart rate 67 /min Daksha Anton MD Work Phone: [facility] 12-18-2024 15:26-0400 Respiratory rate 18 /min Daksha Anton MD Work Phone: [facility] 12-18-2024 15:26-0400 SaO2% (BldA) [Mass fraction] 97 % Daksha Anton MD Work Phone: [facility] 12-18-2024 15:26-0400 Systolic blood pressure 108 mm[Hg] Daksha Anton MD Work Phone: [facility] 11-14-2024 16:17-0400 Body mass index (BMI) [Ratio] 23.67 kg/m2 Daksha Anton MD Work Phone: [facility] 11-14-2024 16:17-0400 Body temperature 97 [degF] Daksha Anton MD Work Phone: [facility] 11-14-2024 16:17-0400 Body weight 58.7 kg Daksha Anton MD Work Phone: [facility] 11-14-2024 16:17-0400 Heart rate 76 /min Daksha Anton MD Work Phone: [facility] 11-14-2024 16:17-0400 Respiratory rate 12 /min Daksha Anton MD Work Phone: [facility] 11-14-2024 16:17-0400 SaO2% (BldA) [Mass fraction] 96 % Daksha Anton MD Work Phone: [facility] 10-31-2024 16:44-0400 Body mass index (BMI) [Ratio] 21.95 kg/m2 Mani Medina APRN.STAVE SAW OPERATOR Work Phone: [facility] 10-31-2024 16:44-0400 Body temperature 98.4 [degF] Mani Medina APRN.STAVE SAW OPERATOR Work Phone: [facility] 10-31-2024 16:44-0400 Body weight 54.43 kg Mani Medina APRN.STAVE SAW OPERATOR Work Phone: [facility] 10-31-2024 16:44-0400 Diastolic blood pressure 67 mm[Hg] Mani Medina APRN.STAVE SAW OPERATOR Work Phone: [facility] 10-31-2024 16:44-0400 Heart rate 70 /min Mani Medina APRN.STAVE SAW OPERATOR Work Phone: [facility] 10-31-2024 16:44-0400 Respiratory rate 16 /min Mani Medina APRN.STAVE SAW OPERATOR Work Phone: [facility] 10-31-2024 16:44-0400 SaO2% (BldA) [Mass fraction] 98 % Mani Medina APRN.STAVE SAW OPERATOR Work Phone: [facility] 10-31-2024 16:44-0400 Systolic blood pressure 109 mm[Hg] Mani Medina APRN.STAVE SAW OPERATOR Work Phone: [facility] 09-21-2024 08:55-0400 Body height 157.5 cm Barbara Bran APRN.STAVE SAW OPERATOR Work Phone: [facility] 09-21-2024 08:55-0400 Body mass index (BMI) [Ratio] 22.62 kg/m2 Barbara Bran APRN.STAVE SAW OPERATOR Work Phone: [facility] 09-21-2024 08:55-0400 Body weight 56.1 kg Barbara Bran OXYGEN THERAPIST.STAVE SAW OPERATOR Work Phone: [facility] 09-21-2024 08:55-0400 Heart rate 64 /min Barbara Bran OXYGEN THERAPIST.STAVE SAW OPERATOR Work Phone: [facility] 09-21-2024 08:55-0400 SaO2% (BldA) [Mass fraction] 97 % Barbara Bran OXYGEN THERAPIST.STAVE SAW OPERATOR Work Phone: [facility] 09-18-2024 14:34-0400 Body height 157.5 cm Tracy Sauer MD Work Phone: [facility] 09-18-2024 14:34-0400 Body mass index (BMI) [Ratio] 22.86 kg/m2 Tracy Sauer MD Work Phone: [facility] 09-18-2024 14:34-0400 Body weight 56.7 kg Tracy Sauer MD Work Phone: [facility] 09-18-2024 14:34-0400 Diastolic blood pressure 62 mm[Hg] Tracy Sauer MD Work Phone: [facility] 09-18-2024 14:34-0400 Heart rate 60 /min Tracy Sauer MD Work Phone: [facility] 09-18-2024 14:34-0400 Respiratory rate 12 /min Tracy Sauer MD Work Phone: [facility] 09-18-2024 14:34-0400 SaO2% (BldA) [Mass fraction] 95 % Tracy Sauer MD Work Phone: [facility] 09-18-2024 14:34-0400 Systolic blood pressure 102 mm[Hg] Tracy Sauer MD Work Phone: [facility] 09-15-2024 13:06-0400 Body mass index (BMI) [Ratio] 23.08 kg/m2 Daksha Anton MD Work Phone: [facility] 09-15-2024 13:06-0400 Body temperature 97.59 [degF] Daksha Anton MD Work Phone: [facility] 09-15-2024 13:06-0400 Body weight 57.24 kg Daksha Anton MD Work Phone: [facility] 09-15-2024 13:06-0400 Diastolic blood pressure 54 mm[Hg] Daksha Anton MD Work Phone: [facility] 09-15-2024 13:06-0400 Heart rate 66 /min Daksha Anton MD Work Phone: [facility] 09-15-2024 13:06-0400 SaO2% (BldA) [Mass fraction] 96 % Daksha Anton MD Work Phone: [facility] 09-15-2024 13:06-0400 Systolic blood pressure 88 mm[Hg] Daksha Anton MD Work Phone: [facility] 08-30-2024 15:52-0400 Diastolic blood pressure 62 mm[Hg] Sakshi Haagen OXYGEN THERAPIST.STAVE SAW OPERATOR Work Phone: [facility] 08-30-2024 15:52-0400 Heart rate 68 /min Sakshi Haagen OXYGEN THERAPIST.STAVE SAW OPERATOR Work Phone: [facility] 08-30-2024 15:52-0400 Respiratory rate 16 /min Sakshi Haagen OXYGEN THERAPIST.STAVE SAW OPERATOR Work Phone: [facility] 08-30-2024 15:52-0400 Systolic blood pressure 98 mm[Hg] Sakshi Haagen OXYGEN THERAPIST.STAVE SAW OPERATOR Work Phone: [facility] 08-02-2024 15:34-0500 Body mass index (BMI) [Ratio] 23.05 kg/m2 Garrett Ventura MD Work Phone: [facility] 08-02-2024 15:34-0500 Body weight 57.15 kg Garrett Ventura MD Work Phone: [facility] 08-02-2024 15:34-0500 Diastolic blood pressure 70 mm[Hg] Garrett Ventura MD Work Phone: [facility] 08-02-2024 15:34-0500 Heart rate 65 /min Garrett Ventura MD Work Phone: [facility] 08-02-2024 15:34-0500 SaO2% (BldA) [Mass fraction] 96 % Garrett Ventura MD Work Phone: [facility] 08-02-2024 15:34-0500 Systolic blood pressure 102 mm[Hg] Garrett Ventura MD Work Phone: [facility] 07-11-2024 17:31-0500 Body mass index (BMI) [Ratio] 23.31 kg/m2 Geraldine Wormald PA-C Work Phone: [facility] 07-11-2024 17:31-0500 Body temperature 98.29 [degF] Geraldine Wormald PA-C Work Phone: [facility] 07-11-2024 17:31-0500 Body weight 57.8 kg Geraldine Wormald PA-C Work Phone: [facility] 07-11-2024 17:31-0500 Diastolic blood pressure 74 mm[Hg] Geraldine Wormald PA-C Work Phone: [facility] 07-11-2024 17:31-0500 Heart rate 101 /min Geraldine Wormald PA-C Work Phone: [facility] 07-11-2024 17:31-0500 Respiratory rate 16 /min Geraldine Wormald PA-C Work Phone: [facility] 07-11-2024 17:31-0500 SaO2% (BldA) [Mass fraction] 97 % Geraldine Wormald PA-C Work Phone: [facility] 07-11-2024 17:31-0500 Systolic blood pressure 104 mm[Hg] Geraldine Wormald PA-C Work Phone: [facility] 05-31-2024 11:07-0500 Body height 157.5 cm Barbara Bran APRN.CNP Work Phone: [facility] 05-31-2024 11:07-0500 Body mass index (BMI) [Ratio] 23.39 kg/m2 Barbara Bran OXYGEN THERAPIST.STAVE SAW OPERATOR Work Phone: [facility] 05-31-2024 11:07-0500 Body weight 58 kg Barbara Bran OXYGEN THERAPIST.STAVE SAW OPERATOR Work Phone: [facility] 05-31-2024 11:07-0500 Heart rate 62 /min Barbara Bran OXYGEN THERAPIST.STAVE SAW OPERATOR Work Phone: [facility] 05-31-2024 11:07-0500 SaO2% (BldA) [Mass fraction] 97 % Barbara Bran OXYGEN THERAPIST.STAVE SAW OPERATOR Work Phone: [facility] 03-20-2024 13:48-0400 Body height 157.5 cm Tracy Sauer MD Work Phone: [facility] 03-20-2024 13:48-0400 Body mass index (BMI) [Ratio] 23.37 kg/m2 Tracy Sauer MD Work Phone: [facility] 03-20-2024 13:48-0400 Body weight 57.97 kg Tracy Sauer MD Work Phone: [facility] 03-20-2024 13:48-0400 Diastolic blood pressure 74 mm[Hg] Tracy Sauer MD Work Phone: [facility] 03-20-2024 13:48-0400 Heart rate 86 /min Tracy Sauer MD Work Phone: [facility] 03-20-2024 13:48-0400 SaO2% (BldA) [Mass fraction] 97 % Tracy Sauer MD Work Phone: [facility] 03-20-2024 13:48-0400 Systolic blood pressure 124 mm[Hg] Tracy Sauer MD Work Phone: [facility] 01-24-2024 17:35-0400 Body mass index (BMI) [Ratio] 22.86 kg/m2 Garrett Ventura MD Work Phone: [facility] 01-24-2024 17:35-0400 Body weight 56.7 kg Garrett Ventura MD Work Phone: [facility] 01-24-2024 17:35-0400 Diastolic blood pressure 72 mm[Hg] Garrett Ventura MD Work Phone: [facility] 01-24-2024 17:35-0400 Heart rate 60 /min Garrett Ventura MD Work Phone: [facility] 01-24-2024 17:35-0400 SaO2% (BldA) [Mass fraction] 95 % Garrett Ventura MD Work Phone: [facility] 01-24-2024 17:35-0400 Systolic blood pressure 110 mm[Hg] Garrett Ventura MD Work Phone: [facility] 12-01-2023 10:24-0400 Body height 157.5 cm Barbara Bran APRN.STAVE SAW OPERATOR Work Phone: [facility] 12-01-2023 10:24-0400 Body mass index (BMI) [Ratio] 23.27 kg/m2 Barbara Bran APRN.STAVE SAW OPERATOR Work Phone: [facility] 12-01-2023 10:24-0400 Body weight 57.7 kg Barbara Bran APRN.STAVE SAW OPERATOR Work Phone: [facility] 12-01-2023 10:24-0400 Heart rate 64 /min Barbara Bran APRN.STAVE SAW OPERATOR Work Phone: [facility] 12-01-2023 10:24-0400 SaO2% (BldA) [Mass fraction] 96 % Barbara Bran APRN.STAVE SAW OPERATOR Work Phone: [facility] 09-22-2023 14:18-0400 Body weight 56.7 kg Garrett Ventura MD Work Phone: [facility] 09-22-2023 14:18-0400 Diastolic blood pressure 55 mm[Hg] Garrett Ventura MD Work Phone: [facility] 09-22-2023 14:18-0400 Heart rate 68 /min Garrett Ventura MD Work Phone: [facility] 09-22-2023 14:18-0400 Respiratory rate 16 /min Garrett Ventura MD Work Phone: [facility] 09-22-2023 14:18-0400 Systolic blood pressure 94 mm[Hg] Garrett Ventura MD Work Phone: [facility] 08-16-2023 13:25-0500 Heart rate 67 /min Barbara Bran OXYGEN THERAPIST.STAVE SAW OPERATOR Work Phone: [facility] 08-16-2023 13:25-0500 SaO2% (BldA) [Mass fraction] 97 % Barbara Bran OXYGEN THERAPIST.STAVE SAW OPERATOR Work Phone: [facility] 08-13-2023 15:23-0500 Body weight 57.15 kg Garrett Ventura MD Work Phone: [facility] 08-13-2023 15:23-0500 Diastolic blood pressure 52 mm[Hg] Garrett Ventura MD Work Phone: [facility] 08-13-2023 15:23-0500 Heart rate 63 /min Garrett Ventura MD Work Phone: [facility] 08-13-2023 15:23-0500 SaO2% (BldA) [Mass fraction] 96 % Garrett Ventura MD Work Phone: [facility] 08-13-2023 15:23-0500 Systolic blood pressure 102 mm[Hg] Garrett Ventura MD Work Phone: [facility] 06-10-2023 10:26-0500 Body height 157.5 cm Lani Domenic OXYGEN THERAPIST.STAVE SAW OPERATOR Work Phone: [facility] 06-10-2023 10:26-0500 Body weight 56.34 kg Lani Ceredo OXYGEN THERAPIST.STAVE SAW OPERATOR Work Phone: [facility] 06-10-2023 10:26-0500 Diastolic blood pressure 68 mm[Hg] Lani Domenic OXYGEN THERAPIST.STAVE SAW OPERATOR Work Phone: [facility] 06-10-2023 10:26-0500 Heart rate 64 /min Lani Ceredo OXYGEN THERAPIST.STAVE SAW OPERATOR Work Phone: [facility] 06-10-2023 10:26-0500 SaO2% (BldA) [Mass fraction] 98 % Lani Ceredo OXYGEN THERAPIST.STAVE SAW OPERATOR Work Phone: [facility] 06-10-2023 10:26-0500 Systolic blood pressure 114 mm[Hg] Lani Ceredo OXYGEN THERAPIST.STAVE SAW OPERATOR Work Phone: [facility] 02-08-2023 16:03-0400 Body height 155 cm NA Stone PA-C Work Phone: [facility] 02-08-2023 16:03-0400 Body weight 57.61 kg NA Stone PA-C Work Phone: [facility] 02-08-2023 16:03-0400 Diastolic blood pressure 68 mm[Hg] NA Stone PA-C Work Phone: [facility] 02-08-2023 16:03-0400 Heart rate 88 /min NA Stone PA-C Work Phone: [facility] 02-08-2023 16:03-0400 Respiratory rate 18 /min NA Stone PA-C Work Phone: [facility] 02-08-2023 16:03-0400 SaO2% (BldA) [Mass fraction] 96 % NA Stone PA-C Work Phone: [facility] 02-08-2023 16:03-0400 Systolic blood pressure 104 mm[Hg] NA Stone PA-C Work Phone: [facility] 02-02-2023 15:01-0400 Body weight 58.33 kg Barbara Bran OXYGEN THERAPIST.STAVE SAW OPERATOR Work Phone: [facility] 02-02-2023 15:01-0400 Heart rate 60 /min Barbara Bran OXYGEN THERAPIST.STAVE SAW OPERATOR Work Phone: [facility] 02-02-2023 15:01-0400 SaO2% (BldA) [Mass fraction] 96 % Barbara Bran OXYGEN THERAPIST.STAVE SAW OPERATOR Work Phone: [facility] 07-27-2022 13:45-0500 Body weight 58.51 kg Jeanette Andrewsely OXYGEN THERAPIST.STAVE SAW OPERATOR Work Phone: [facility] 07-27-2022 13:45-0500 Diastolic blood pressure 80 mm[Hg] Jeanette Arti OXYGEN THERAPIST.STAVE SAW OPERATOR Work Phone: [facility] 07-27-2022 13:45-0500 Heart rate 71 /min Jeanette Arti OXYGEN THERAPIST.STAVE SAW OPERATOR Work Phone: [facility] 07-27-2022 13:45-0500 SaO2% (BldA) [Mass fraction] 98 % Jeanette Andrewsely OXYGEN THERAPIST.STAVE SAW OPERATOR Work Phone: [facility] 07-27-2022 13:45-0500 Systolic blood pressure 112 mm[Hg] Jeanette Arti OXYGEN THERAPIST.STAVE SAW OPERATOR Work Phone: [facility] 06-09-2022 08:59-0500 Body weight 59.42 kg Barbara Bran OXYGEN THERAPIST.STAVE SAW OPERATOR Work Phone: [facility] 04-29-2022 09:49-0500 Body weight 58.51 kg Sakshi Li OXYGEN THERAPIST.STAVE SAW OPERATOR Work Phone: [facility] 04-29-2022 09:49-0500 Diastolic blood pressure 72 mm[Hg] Sakshi Haagen OXYGEN THERAPIST.STAVE SAW OPERATOR Work Phone: [facility] 04-29-2022 09:49-0500 Heart rate 66 /min Sakshi Haagen OXYGEN THERAPIST.STAVE SAW OPERATOR Work Phone: [facility] 04-29-2022 09:49-0500 Respiratory rate 18 /min Sakshi Haagen OXYGEN THERAPIST.STAVE SAW OPERATOR Work Phone: [facility] 04-29-2022 09:49-0500 SaO2% (BldA) [Mass fraction] 98 % Sakshi Haagen OXYGEN THERAPIST.STAVE SAW OPERATOR Work Phone: [facility] 04-29-2022 09:49-0500 Systolic blood pressure 100 mm[Hg] Sakshi Haagen OXYGEN THERAPIST.STAVE SAW OPERATOR Work Phone: [facility] 03-30-2022 09:17-0400 Diastolic blood pressure 60 mm[Hg] Mi Nurse Work Phone: [facility] 03-30-2022 09:17-0400 Heart rate 59 /min Mi Nurse Work Phone: [facility] 03-30-2022 09:17-0400 Systolic blood pressure 95 mm[Hg] Mi Nurse Work Phone: [facility] 03-19-2022 09:39-0400 Body weight 60.92 kg Barbara Bran OXYGEN THERAPIST.STAVE SAW OPERATOR Work Phone: [facility] 03-19-2022 09:39-0400 Heart rate 66 /min Barbara Bran OXYGEN THERAPIST.STAVE SAW OPERATOR Work Phone: [facility] 03-19-2022 09:39-0400 SaO2% (BldA) [Mass fraction] 100 % Barbara Bran OXYGEN THERAPIST.STAVE SAW OPERATOR Work Phone: [facility] 03-02-2022 09:29-0400 Diastolic blood pressure 62 mm[Hg] Sakshi Haagen OXYGEN THERAPIST.STAVE SAW OPERATOR Work Phone: [facility] 03-02-2022 09:29-0400 Heart rate 69 /min Sakshi Haagen OXYGEN THERAPIST.STAVE SAW OPERATOR Work Phone: [facility] 03-02-2022 09:29-0400 Respiratory rate 18 /min Sakshi Haagen OXYGEN THERAPIST.STAVE SAW OPERATOR Work Phone: [facility] 03-02-2022 09:29-0400 SaO2% (BldA) [Mass fraction] 94 % Sakshi Haagen OXYGEN THERAPIST.STAVE SAW OPERATOR Work Phone: [facility] 03-02-2022 09:29-0400 Systolic blood pressure 108 mm[Hg] Sakshi Haagen OXYGEN THERAPIST.STAVE SAW OPERATOR Work Phone: [facility] 02-13-2022 13:33-0400 Body weight 58.97 kg Sakshi Haagen OXYGEN THERAPIST.STAVE SAW OPERATOR Work Phone: [facility] 02-13-2022 13:33-0400 Diastolic blood pressure 60 mm[Hg] Sakshi Haagen OXYGEN THERAPIST.STAVE SAW OPERATOR Work Phone: [facility] 02-13-2022 13:33-0400 Heart rate 82 /min Sakshi Haagen OXYGEN THERAPIST.STAVE SAW OPERATOR Work Phone: [facility] 02-13-2022 13:33-0400 Respiratory rate 14 /min Sakshi Haagen OXYGEN THERAPIST.STAVE SAW OPERATOR Work Phone: [facility] 02-13-2022 13:33-0400 Systolic blood pressure 110 mm[Hg] Sakshi Haagen OXYGEN THERAPIST.STAVE SAW OPERATOR Work Phone: [facility] 08-28-2021 15:13-0500 Body height 157.5 cm Concepcion Betancur MD Work Phone: [facility] 08-28-2021 15:13-0500 Body weight 60.33 kg Concepcion Betancur MD Work Phone: [facility] 08-28-2021 15:13-0500 Diastolic blood pressure 62 mm[Hg] Concepcion Betancur MD Work Phone: [facility] 08-28-2021 15:13-0500 Heart rate 84 /min Concepcion Betancur MD Work Phone: [facility] 08-28-2021 15:13-0500 Systolic blood pressure 113 mm[Hg] Concepcion Betancur MD Work Phone: [facility] Encounters Encounter Date Encounter Type Care Provider Facility Start: 04-26-2025 End: 04-26-2025 ambulatory [facility] Facility:[facility] Start: 03-29-2025 End: 03-29-2025 ambulatory [facility] Facility:[facility] Start: 03-03-2025 End: 03-03-2025 Patient encounter procedure Monica Chinchilla OXYGEN THERAPIST.STAVE SAW OPERATOR Work Phone: [facility] Comment on above: Viral URI with cough (Primary Dx); Headache, unspecified headache type; Rash Start: 03-03-2025 End: 03-04-2025 ambulatory GARRETT VENTURA Facility:[facility] Start: 02-27-2025 End: 03-05-2025 Telephone encounter Garrett Ventura MD Work Phone: [facility] [place] Comment on above: Medication Problem ( Test strips) Start: 02-22-2025 End: 02-25-2025 Refill Daksah Anton MD Work Phone: Endocrinology Comment on above: Refill Request Start: 02-15-2025 End: 02-19-2025 Refill Garrett Ventura MD Work Phone: [facility] [place] Comment on above: Refill Request Start: 01-18-2025 End: 01-18-2025 Patient encounter procedure Silvio Cook Work Phone: Podiatry Comment on above: Onychomycosis (Prima ry Dx); Type 2 diabetes mellitus with diabetic peripheral angiopathy without gangrene, with long-term current use of insulin ([facility]) Start: 01-18-2025 End: 01-18-2025 ambulatory GARRETT VENTURA Facility:[facility] Start: 12-26-2024 End: 12-27-2024 Refill Garrett Ventura MD Work Phone: [facility] [place] Comment on above: Refill Request Start: 12-20-2024 End: 12-20-2024 Patient encounter procedure Vincent Valle MD Work Phone: Pain Management Comment on above: Degeneration of inte rvertebral disc of lumbar region with discogenic back pain (Primary Dx); Spondylolisthesis of lumbar region; Radiculopathy, lumbar region; Spinal stenosis of lumbar region with neurogenic claudication Start: 12-20-2024 End: 12-20-2024 ambulatory VINCENT VALLE Facility:[facility] Start: 12-18-2024 End: 12-18-2024 Patient encounter procedure Daksha Anton MD Work Phone: Endocrinology Comment on above: Diabetes mellitus ty pe 2 (HCC) (Primary Dx); Diabetes mellitus type 1, controlled, without complications (HCC) Start: 12-18-2024 End: 12-18-2024 ambulatory [facility] Facility:[facility] Start: 11-15-2024 End: 11-22-2024 Telephone encounter Garrett Ventura MD Work Phone: [facility] [place] Comment on above: Patient Update Start: 11-14-2024 End: 11-14-2024 Patient encounter procedure Daksha Anton MD Work Phone: Endocrinology Comment on above: Diabetes mellitus ty pe 2 (HCC) (Primary Dx) Start: 11-14-2024 End: 11-14-2024 ambulatory [facility] Facility:[facility] Start: 10-31-2024 End: 10-31-2024 Patient encounter procedure Mani Medina APRN.CNP Work Phone: [facility] Comment on above: Allergic contact delgado matitis, unspecified trigger (Primary Dx) Start: 10-31-2024 End: 10-31-2024 ambulatory GARRETT VENTURA Facility:[facility] Start: 10-23-2024 End: 10-23-2024 Follow-up encounter Sakshi Li APRN.CNP Work Phone: [facility] Comment on above: Results Start: 10-20-2024 End: 12-20-2024 Follow-up encounter Sakshi Li APRN.CNP Work Phone: [facility] [place] Start: 10-20-2024 End: 10-20-2024 ambulatory GARRETT VENTURA Facility:[facility] Start: 10-20-2024 End: 10-20-2024 Subsequent hospital visit by physician [facility] Work Phone: Radiology Comment on above: Thyroid fullness [E0 7.89] Start: 09-27-2024 End: 11-27-2024 Follow-up encounter Silvio Cook Work Phone: Podiatry Start: 09-26-2024 End: 09-26-2024 ambulatory [facility] Facility:[facility] Start: 09-26-2024 End: 09-26-2024 Nursing evaluation of patient and report Eleazar Franks RN Work Phone: Endocrinology Comment on above: Diabetes mellitus ty pe 2 (HCC) Start: 09-21-2024 End: 09-21-2024 ambulatory [facility] Facility:[facility] Start: 09-21-2024 End: 09-21-2024 Patient encounter procedure Barbara Bran APRN.CNP Work Phone: Pain Management Comment on above: Degeneration of inte rvertebral disc of lumbar region with discogenic back pain (Primary Dx); Spondylolisthesis of lumbar region; Radiculopathy, lumbar region; Spinal stenosis of lumbar region with neurogenic claudication; DDD (degenerative disc disease), lumbar Start: 09-18-2024 End: 09-18-2024 [facility] Facility:[facility] Start: 09-18-2024 End: 09-18-2024 Patient encounter procedure Tracy Sauer MD Work Phone: Cardiology Comment on above: Primary hypertension (Primary Dx); Coronary artery disease, unspecified vessel or lesion type, unspecified whether angina present, unspecified whether mesa grande or transplanted heart Start: 09-18-2024 End: 09-18-2024 [facility] Facility:[facility] Start: 09-18-2024 End: 09-18-2024 Patient encounter procedure Silvio Cook Work Phone: Podiatry Comment on above: Onychomycosis; Bunion; Callus Start: 09-15-2024 End: 09-15-2024 [facility]ulatory [facility] Facility:[facility] Start: 09-15-2024 End: 09-15-2024 Patient encounter procedure Daksha Anton MD Work Phone: Endocrinology Comment on above: Diabetes mellitus ty pe 1, controlled, without complications (HCC) (Primary Dx); Diabetes mellitus type 2 (HCC); Controlled type 2 diabetes mellitus without complication, without long-term current use of insulin (HCC) Start: 09-04-2024 End: 09-04-2024 ambulatory GARRETT Carrie ALON Facility:[facility] Start: 09-04-2024 End: 09-04-2024 Patient encounter procedure Luis Menendez MD Work Phone: Orthopaedics Comment on above: Pain in both hands; Trigger middle finger of right hand Start: 08-30-2024 End: 08-30-2024 ambulatory [facility] Facility: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 [place] Comment on above: Gastroesophageal ref lux disease, unspecified whether esophagitis present (Primary Dx); Wheezing; Stenosis of carotid artery, unspecified laterality; Thyroid fullness Start: 08-30-2024 End: 08-30-2024 Telephone encounter Vincent Valle MD Work Phone: Pain Management Comment on above: Appointment Start: 08-04-2024 End: 10-04-2024 Follow-up encounter Garrett Ventura MD Work Phone: [facility] [place] Start: 08-04-2024 End: 08-04-2024 Telephone encounter Garrett Ventura MD Work Phone: Family [facility] [place] Comment on above: Results Start: 08-02-2024 End: 08-02-2024 Subsequent hospital visit by physician [facility] Work Phone: Radiology Comment on above: Pain in both hands [ M79.641, M79.642] Start: 08-02-2024 End: 08-02-2024 ambulatory GARRETT VENTURA Facility:[facility] Start: 08-02-2024 End: 08-02-2024 Patient encounter procedure Garrett Ventura MD Work Phone: Family 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) (Primary Dx); Shortness of breath; Dizziness; Controlled type 2 diabetes mellitus without complication, without long-term current use of insulin (HCC); Mixed hyperlipidemia; Essential (primary) hypertension; Chronic renal disease, stage IV (HCC); Anxiety; Spinal stenosis of lumbar region with neurogenic claudication; Pain in both hands; Trigger middle finger of right hand; Gastroesophageal reflux disease without esophagitis; Screening for colon cancer; Angular cheilitis; Onychomycosis; Bunion; Callus Start: 08-02-2024 End: 08-02-2024 Telephone encounter Garrett Ventura MD Work Phone: Family [facility] [place] Start: 07-11-2024 End: 07-11-2024 Subsequent hospital visit by physician Xr [facility] [place] Work Phone: Radiology Comment on above: Acute cough [R05.1] Start: 07-11-2024 End: 07-11-2024 ambulatory GARRETT VENTURA Facility:[facility] Start: 07-11-2024 End: 07-11-2024 Patient encounter procedure Geraldine Araya PA-C Work Phone: [facility] Comment on above: Viral URI (Primary D x); Acute cough; Chest congestion Start: 06-14-2024 End: 06-19-2024 ambulatory Garrett Ventura MD Work Phone: Internal Medicine [place] [id number] Start: 05-31-2024 End: 05-31-2024 ambulatory GARRETT VENTURA Facility:[facility] Start: 05-31-2024 End: 05-31-2024 Patient encounter procedure Barbara Bran APRN.CNP Work Phone: Pain Management Comment on above: Degeneration of inte rvertebral disc of lumbar region with discogenic back pain (Primary Dx); Spinal stenosis of lumbar region with neurogenic claudication; Spondylolisthesis of lumbar region; Radiculopathy, lumbar region; DDD (degenerative disc disease), lumbar Start: 04-28-2024 End: 04-28-2024 Refill Garrett Ventura MD Work Phone: [facility] [place] Comment on above: Refill Request Start: 04-27-2024 End: 04-27-2024 Refill Garrett Ventura MD Work Phone: Family [facility] [place] Comment on above: Refill Request Start: 04-26-2024 End: 04-26-2024 Refill Garrett Ventura MD Work Phone: [facility] [place] Comment on above: Refill Request Start: 03-20-2024 End: 03-20-2024 Patient encounter procedure Tracy Sauer MD Work Phone: Cardiology Comment on above: Screening for ischem ic heart disease (Primary Dx); Primary hypertension; 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 (HCC); Mixed hyperlipidemia Start: 02-22-2024 End: 02-22-2024 Patient encounter procedure Barbara Bran APRN.STAVE SAW OPERATOR Work Phone: Pain Management Comment on above: DDD (degenerative di sc disease), lumbar; Spinal stenosis of lumbar region with neurogenic claudication; Spondylolisthesis of lumbar region; Radiculopathy, lumbar region Start: 02-10-2024 End: 02-11-2024 Telephone encounter Garrett Ventura MD Work Phone: [facility] [place] Comment on above: Results Start: 02-07-2024 End: 02-07-2024 Subsequent hospital visit by physician [facility] Work Phone: Radiology Comment on above: Renal insufficiency [N28.9] Start: 01-24-2024 End: 01-24-2024 Patient encounter procedure Garrett Ventura MD Work Phone: [facility] [place] Comment on above: 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 mes[place] heart with angina pectoris (HCC) (Primary Dx); Gastroesophageal reflux disease without esophagitis; Essential (primary) hypertension; Mixed hyperlipidemia; Controlled type 2 diabetes mellitus without complication, without long-term current use of insulin (HCC); Anxiety; Screening for depression; Chronic renal disease, stage IV (HCC); Hypercalcemia; Medial epicondylitis of left elbow Start: 12-01-2023 Telephone encounter Barbara dawson APRN.STAVE SAW OPERATOR Work Phone: Pain Management Comment on above: Appointment Start: 12-01-2023 End: 12-01-2023 Patient encounter procedure Barbara Bran APRN.STAVE SAW OPERATOR Work Phone: Pain Management Comment on above: DDD (degenerative di sc disease), lumbar; Spinal stenosis of lumbar region with neurogenic claudication; Spondylolisthesis of lumbar region; Radiculopathy, lumbar region Start: 11-17-2023 Refill Garrett Ventura MD Work Phone: [facility] [place] Comment on above: Refill Request Start: 11-03-2023 Telephone encounter Barbara Marcelo Luis dawson APRN.STAVE SAW OPERATOR Work Phone: Pain Management Comment on above: Speak w/Provider Start: 10-25-2023 Refill Garrett Ventura MD Work Phone: [facility] [place] Comment on above: Refill Request Start: 10-20-2023 Chart abstracting Moe Nielsen MD Work Phone: Kidney Medicine Comment on above: Abstract Start: 09-24-2023 Telephone encounter Garrett Ventura MD Work Phone: [facility] [place] Comment on above: Results Start: 09-23-2023 Telephone encounter Garrett Ventura MD Work Phone: [facility] [place] Comment on above: Results Start: 09-22-2023 End: 09-22-2023 Patient encounter procedure Garrett Ventura MD Work Phone: [facility] [place] Comment on above: Neck pain (Primary D x); Wheezing; Renal insufficiency; Hypercalcemia; Gastroesophageal reflux disease without esophagitis Start: 09-15-2023 Telephone encounter Davian Stone PA-C Work Phone: [facility] [place] Comment on above: pharmacy consult barby ramires Refill Request Start: 09-09-2023 End: 09-09-2023 Patient encounter procedure Renuka Villarreal [facility] Work Phone: [facility] Comment on above: Medication managemen t (Primary Dx) Start: 08-23-2023 End: 02-18-2024 Telephone encounter Davian Stone PA-C Work Phone: [facility] [place] Comment on above: Results Start: 08-18-2023 Telephone encounter Garrett Ventura MD Work Phone: [facility] [place] Comment on above: Insurance Authorizat ion Start: 08-17-2023 Telephone encounter Rabia Sean Chao ESQUEDA.PULMONARY FELLOW Work Phone: Family [facility] [place] Comment on above: Results Refill Request Start: 08-16-2023 Telephone encounter Garrett Ventura MD Work Phone: [facility] [place] Comment on above: Insurance Authorizat ion Start: 08-16-2023 End: 08-16-2023 Patient encounter procedure Barbara Bran APRN.STAVE SAW OPERATOR Work Phone: Pain Management Comment on above: DDD (degenerative di sc disease), lumbar; Spinal stenosis of lumbar region with neurogenic claudication; Spondylolisthesis of lumbar region; Radiculopathy, lumbar region Start: 08-13-2023 End: 08-13-2023 Subsequent hospital visit by physician Jennifer [facility] [place] Work Phone: Radiology Comment on above: Swelling of right delacruz nd [M79.89] Start: 08-13-2023 End: 08-13-2023 Patient encounter procedure Garrett Ventura MD Work Phone: [facility] [place] Comment on above: 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 mes[place] heart with angina pectoris (HCC) (Primary Dx); Controlled type 2 diabetes mellitus without complication, without long-term current use of insulin (HCC); Shortness of breath; Essential (primary) hypertension; DDD (degenerative disc disease), lumbar; Anxiety; Radiculopathy, lumbar region; Renal insufficiency; Gastroesophageal reflux disease without esophagitis; Swelling of right hand Start: 06-10-2023 End: 06-10-2023 Patient encounter procedure Lani Sheth APRN.STAVE SAW OPERATOR Work Phone: OB/Gynecology Comment on above: Encounter for gyneco logical examination (general) (routine) without abnormal findings (Primary Dx); Screening for cervical cancer; Encounter for screening for human papillomavirus (HPV); Pap smear for cervical cancer screening; Encounter for screening mammogram for breast cancer Start: 06-10-2023 End: 06-10-2023 Patient encounter status Lani Sheth APRN.STAVE SAW OPERATOR Work Phone: [facility] Start: 05-11-2023 End: 05-11-2023 Patient encounter procedure Barbara Bran APRN.STAVE SAW OPERATOR Work Phone: Pain Management Comment on above: DDD (degenerative di sc disease), lumbar; Spinal stenosis of lumbar region with neurogenic claudication; Spondylolisthesis of lumbar region; Radiculopathy, lumbar region Start: 05-05-2023 Telephone encounter Garrett Ventura MD Work Phone: [facility] [place] Comment on above: Medicaton issue/ques tion Refill Request Start: 04-07-2023 Refill Garrett Ventura MD Work Phone: [facility] [place] Comment on above: Refill Request Lab & Test Results Start: 03-30-2023 Telephone encounter Garrett Ventura MD Work Phone: [facility] [place] Comment on above: Patient Request Start: 03-11-2023 End: 03-11-2023 Subsequent hospital visit by physician Screen Mammo [facility] Comment on above: Encounter for screen ing mammogram for malignant neoplasm of breast [Z12.31] Start: 02-08-2023 End: 02-08-2023 Patient encounter procedure Davian Stone PA-C Work Phone: [facility] [place] Comment on above: Wellness examination (Primary Dx); 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 (HCC); Controlled type 2 diabetes mellitus without complication, without long-term current use of insulin (HCC); Mixed hyperlipidemia; Anxiety; Spinal stenosis of lumbar region with neurogenic claudication; Radiculopathy, lumbar region; Spondylolisthesis of lumbar region; DDD (degenerative disc disease), lumbar; Carpal tunnel syndrome, bilateral; Wheezing; Encounter for immunization; Screening for cervical cancer; Screening for colon cancer; Asymptomatic postmenopausal status; Encounter for screening mammogram for malignant neoplasm of breast Start: 02-08-2023 End: 02-08-2023 Patient encounter status Davian Stone PA-C Work Phone: [facility] Work Phone: Start: 02-02-2023 End: 02-02-2023 Patient encounter procedure Barbara Bran APRN.STAVE SAW OPERATOR Work Phone: Pain Management Comment on above: DDD (degenerative di sc disease), lumbar; Spinal stenosis of lumbar region with neurogenic claudication; Spondylolisthesis of lumbar region; Radiculopathy, lumbar region Start: 01-13-2023 ambulatory Garrett Ventura MD Work Phone: [facility] [place] Start: 12-11-2022 Refill Garrett Ventura MD Work Phone: [facility] [place] Comment on above: Refill Request Start: 12-03-2022 Refill Garrett Ventura MD Work Phone: [facility] [place] Comment on above: Refill Request Start: 10-05-2022 End: 10-05-2022 Nursing evaluation of patient and report Nurse Card Admin [facility] Work Phone: Cardiology Comment on above: Screening for ischem ic heart disease (Primary Dx) Start: 10-05-2022 End: 10-05-2022 Subsequent hospital visit by physician Injection Nm [facility] Work Phone: Nuclear Medicine Comment on above: 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 mes[place] heart with angina pectoris (HCC) [I25.119] Start: 10-02-2022 Telephone encounter Concepcion Betancur MD Work Phone: Endocrinology Comment on above: Appointment (called pt to schedule appt - invalid number ) Start: 10-01-2022 Telephone encounter Nurse Card Admin [facility] Work Phone: Cardiology Comment on above: Orders (Stress Test instructions) Start: 09-20-2022 Refill Concepcion swanson MD Work Phone: Endocrinology Comment on above: Refill Request (Jard iance ) Start: 08-20-2022 Telephone encounter Garrett Ventura MD Work Phone: [facility] [place] Comment on above: Insurance Authorizat ion (Alogliptin ) Start: 08-18-2022 Refill Garrett Ventura MD Work Phone: [facility] [place] Comment on above: Refill Request Start: 08-10-2022 Telephone encounter Garrett Ventura MD Work Phone: [facility] Comment on above: Appointment Start: 08-04-2022 Telephone encounter Nurse Card Admin [facility] Work Phone: Cardiology Comment on above: Appointment (Stress test instructions) Start: 07-27-2022 End: 07-27-2022 Patient encounter procedure Jeanette Chi APRN.STAVE SAW OPERATOR Work Phone: Cardiology Comment on above: 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 mes[place] heart without angina pectoris (Primary Dx); 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 (HCC); Stage 3b chronic kidney disease (HCC); Primary hypertension; Mixed hyperlipidemia; Controlled type 2 diabetes mellitus without complication, without long-term current use of insulin (HCC); SVT (supraventricular tachycardia) (HCC); Tobacco abuse Start: 06-26-2022 Telephone encounter Vincent bo MD Work Phone: Pain Management Comment on above: Results Start: 06-13-2022 Telephone encounter Betty Dickson APRN.STAVE SAW OPERATOR Work Phone: [facility] Comment on above: Results Start: 06-11-2022 ambulatory Garrett Ventura MD Work Phone: [facility] Comment on above: Cough Start: 06-09-2022 ambulatory GARRETT VENTURA Facility :[facility] Start: 06-09-2022 End: 06-09-2022 Patient encounter procedure Barbara Bran APRN.STAVE SAW OPERATOR Work Phone: Pain Management Comment on above: DDD (degenerative di sc disease), cervical (Primary Dx); DDD (degenerative disc disease), lumbar; Spinal stenosis of lumbar region with neurogenic claudication; Spondylolisthesis of lumbar region; Radiculopathy, lumbar region Start: 06-09-2022 End: 06-09-2022 Subsequent hospital visit by physician [facility] Work Phone: Radiology Comment on above: DDD (degenerative di sc disease), cervical [M50.30] Start: 05-22-2022 Refill Vincent Valle MD Work Phone: Pain Management Comment on above: Refill Request; Appo intment Start: 04-29-2022 End: 04-29-2022 Office outpatient visit 15 minutes Sakshi Li APRN.CNP Work Phone: [facility] [place] Comment on above: Near syncope (Primar y Dx) Start: 04-09-2022 Telephone encounter Garrett Ventura MD Work Phone: [facility] [place] Comment on above: Results Start: 03-30-2022 Telephone encounter Garrett Ventura MD Work Phone: [facility] [place] Comment on above: Blood Pressure Check Start: 03-30-2022 End: 03-30-2022 Nursing evaluation of patient and report Mi Nurse Work Phone: [facility] [place] Comment on above: Hypotension, unspeci fied hypotension type (Primary Dx) Start: 03-25-2022 Telephone encounter Sakshi muro APRN.STAVE SAW OPERATOR Work Phone: [facility] Comment on above: Results Start: 03-23-2022 ambulatory GARRETT VENTURA Facility :[facility] Start: 03-23-2022 End: 03-23-2022 Subsequent hospital visit by physician [facility] Work Phone: Cardiology Lab Comment on above: Shortness of breath [R06.02] Start: 03-20-2022 Telephone encounter Laurie lincoln RN Cardiology Lab Comment on above: Reminder Call Start: 03-19-2022 End: 03-19-2022 Patient encounter procedure Barbara Bran APRN.STAVE SAW OPERATOR Work Phone: Pain Management Comment on above: DDD (degenerative di sc disease), lumbar; Spinal stenosis of lumbar region with neurogenic claudication; Spondylolisthesis of lumbar region; Radiculopathy, lumbar region Start: 03-03-2022 End: 03-03-2022 Subsequent hospital visit by physician [facility] Work Phone: Radiology Comment on above: Stage 3b chronic kid chilango disease (HCC) [N18.32] Start: 03-02-2022 End: 03-02-2022 Office outpatient visit 25 minutes Sakshi Li APRN.STAVE SAW OPERATOR Work Phone: [facility] [place] Comment on above: Hypotension, unspeci fied hypotension type (Primary Dx); Stage 3b chronic kidney disease (HCC); Shortness of breath; Mixed hyperlipidemia; 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 (HCC) Start: 02-16-2022 Telephone encounter Sakshi muro APRN.STAVE SAW OPERATOR Work Phone: [facility] [place] Comment on above: Results Start: 02-13-2022 End: 02-13-2022 Office outpatient visit 25 minutes Sakshi Li OXYGEN THERAPIST.STAVE SAW OPERATOR Work Phone: [facility] [place] Comment on above: Dizziness (Primary D x); Controlled type 2 diabetes mellitus without complication, without long-term current use of insulin (HCC); Angular cheilitis; Mixed hyperlipidemia; Multiple thyroid nodules Start: 02-09-2022 Refill Garrett Ventura MD Work Phone: [facility] [place] Comment on above: Refill Request Start: 01-22-2022 Telephone encounter Mikaela Farooq RN Endocrine Surgery Comment on above: Schedule Surgery Start: 01-16-2022 Telephone encounter Mikaela Farooq RN Endocrine Surgery Comment on above: Schedule Surgery Start: 01-07-2022 Telephone encounter Mikaela Farooq RN Endocrine Surgery Comment on above: Results Start: 01-05-2022 End: 01-05-2022 Patient encounter procedure Antoni Reyna MD Work Phone: Endocrine Surgery Comment on above: Multinodular goiter Start: 12-08-2021 Refill Garrett Ventura MD Work Phone: Family [facility] Comment on above: Refill Request Start: 12-04-2021 Refill Garrett Ventura MD Work Phone: [facility] Comment on above: Prescription Refills Start: 10-06-2021 Refill Davian muhammad PA-C Work Phone: [facility] [place] Comment on above: Refill Request Start: 09-12-2021 Telephone encounter Antoni burns MD Work Phone: Endocrine Surgery Comment on above: Consult (facesheet) Start: 08-28-2021 End: 08-28-2021 Patient encounter procedure Concepcion Betancur MD Work Phone: Endocrinology Comment on above: Multinodular goiter Start: 07-06-2020 End: 07-06-2020 Subsequent hospital visit by physician Jennifer [facility] [place] Work Phone: Radiology Comment on above: Wrist pain, left [M2 5.532] Start: 09-30-2018 Ambulatory EDVINGemini GRAY Facility :[facility] Start: 09-30-2017 End: 09-30-[address] [facility] Procedures Date Procedure Procedure Detail Performing Clinician Start: 11-14-2024 Hemoglobin A1c/Hemoglobin.total in Blood Daksha Anton MD Work Phone: Start: 07-11-2024 Radiologic exam chest 2 views Geraldine Araya PAEmilC Work Phone: Start: 03-20-2024 Ecg routine ecg w/least 12 lds i&r only [facility] Provider Start: 01-24-2024 Adult depression screening assessment Garrett Ventura MD Work Phone: Start: 08-13-2023 Radex hand minimum 3 views Garrett baca MD Work Phone: Start: 03-11-2023 Screening mammography bi 2-view breast inc cad M El Stone PA-C Work Phone: Start: 10-05-2022 Myocardial spect multiple studies Sakshi Li APRN.STAVE SAW OPERATOR Work Phone: Start: 06-09-2022 Radex spine cervical 4 or 5 views Barbara Bran OXYGEN THERAPIST.STAVE SAW OPERATOR Work Phone: Start: 03-23-2022 Cv strs tst xers&/or rx cont ecg trcg only Sakshi iL APRN.STAVE SAW OPERATOR Work Phone: Start: 03-03-2022 Us retroperitoneal real time w/image complete Sakshi Li APRN.STAVE SAW OPERATOR Work Phone: Start: 03-02-2022 Urnls dip stick/tablet reagent auto microscopy Sakshi Li OXYGEN THERAPIST.STAVE SAW OPERATOR Work Phone: Start: 02-13-2022 Adult depression screening assessment Sakshi Li APRN.STAVE SAW OPERATOR Work Phone: Start: 01-05-2022 soft tissue head & neck real time imge docm Antoni Reyna MD Work Phone: Start: 07-06-2020 Radex wrist complete minimum 3 views Garrett Ventura MD Work Phone: Start: 07-21-2019 Mammography Antoni Reyna MD Work Phone: Start: 03-08-2018 Adult depression screening assessment Antoni Reyna MD Work Phone: Plan of Treatment Date Care Activity Detail Author Start: 06-10-2028 Screening for malign ant neoplasm of cervix [facility] Start: 10-24-2027 Urine microalbumin profile [facility] Start: 10-31-2025 BP Controlled (<130/80) BP Controlle d (<130/80) [facility] Start: 09-18-2025 BP Controlled (<130/80) BP Controlle d (<130/80) [facility] Start: 09-15-2025 BP Controlled (<130/80) BP Controlle d (<130/80) [facility] Start: 08-30-2025 Annual PCP Team Insight Director lisa Disease Visit Annual PCP Team Chronic Disease Visit [facility] Start: 08-30-2025 BP Controlled (<130/80) BP Controlle d (<130/80) [facility] Start: 08-02-2025 Annual PCP Team Insight Director lisa Disease Visit Annual PCP Team Chronic Disease Visit [facility] Start: 08-02-2025 BP Controlled (<130/80) BP Controlle d (<130/80) [facility] Start: 08-02-2025 Creatinine measurement Serum Creatin ine [facility] Start: 08-02-2025 Hepatitis B screening Urine Albumin:Creatinine Ratio [facility] Start: 08-02-2025 Hepatitis B surface antibody level LDL Cholesterol [facility] Start: 08-02-2025 HIV screening HIV Screening [facility] Comment on above: Postponed from 05/16 (Declined at this time) Start: 07-11-2025 BP Controlled (<130/80) BP Controlle d (<130/80) [facility] Start: 04-20-2025 End: 07-20-2025 Hepatic function 1999 panel - Serum or Plasma HEPATIC FUNCTION PNL Lab Routine Onychomycosis Expected: 04/20/2025, Expires: 07/20/2025 [facility] Comment on above: Expected: 04/20/2025 , Expires: 07/20/2025 Start: 04-16-2025 End: 04-16-2025 Patient encounter procedure 04/16/2025 4:20 PM EDT Office Visit Cardiology [address] [place], [place] [id number] Tracy Sauer MD [address] [facility], [address] [place], [place] [id number] 6 month follow up Cardiology Comment on above: 6 month follow up Start: 03-20-2025 BP Controlled (<130/80) BP Controlle d (<130/80) [facility] Start: 03-18-2025 End: 06-17-2025 Hepatic function 2000 panel - Serum or Plasma HEPATIC FUNCTION PNL Lab Routine Onychomycosis Expected: 03/18/2025, Expires: 06/17/2025 [facility] Comment on above: Expected: 03/18/2025 , Expires: 06/17/2025 Start: 02-20-2025 End: 02-20-2025 Patient encounter procedure 02/20/2025 3:40 PM EDT Office Visit Endocrinology [address] [place] [address] Daksha Anton MD [address] [place] [address] 2 MTH F/U DIABETES Endocrinology Comment on above: 2 MTH F/U DIABETES Start: 02-19-2025 Influenza vaccination Influenza Vacc ine (#1) [facility] Start: 02-18-2025 End: 05-20-2025 Hepatic function 2000 panel - Serum or Plasma HEPATIC FUNCTION PNL Lab Routine Onychomycosis Expected: 02/18/2025, Expires: 05/20/2025 [facility] Work Phone: Comment on above: Expected: 02/18/2025 , Expires: 05/20/2025 Start: 02-14-2025 Hemoglobin A1c measurement HbA1C [facility] Start: 02-06-2025 Complete blood count Hemoglobin/Austin tocrit [facility] Start: 02-06-2025 Creatinine measurement Serum Creatin ine [facility] Start: 01-23-2025 Annual PCP Team Insight Director lisa Disease Visit Annual PCP Team Chronic Disease Visit [facility] Start: 01-23-2025 BP Controlled (<130/80) BP Controlle d (<130/80) [facility] Start: 01-23-2025 Depression Screening Depression Scre ening [facility] Start: 01-18-2025 End: 01-18-2025 Patient encounter procedure 01/18/2025 2:15 PM EDT Office Visit Podiatry [address] [place], [place] [phone] Silvio Cook [address] [place] [phone] Follow up Podiatry Comment on above: Follow up Start: 12-20-2024 End: 12-20-2024 Patient encounter procedure 12/20/2024 3:30 PM EDT Office Visit Pain Management [address] [phone] Vincent Valle MD [address] [facility] [id number] [place] [address] 3 month follow up - med refills (last OV 06/01/[address] Valle) Pain Management Comment on above: 3 month follow up - med refills (last OV 06/01/[address] Valle) Start: 12-18-2024 End: 12-18-2024 Patient encounter procedure 12/18/2024 3:40 PM EDT Office Visit Endocrinology [address] [place], [place] [phone] Daksha Anton MD [address] [place] [address] T1DM / BS log 1 month f/u-uncontroled sugar Endocrinology Comment on above: T1DM / BS log 1 bacilio h f/u-uncontroled sugar Start: 11-15-2024 End: 11-15-2024 Patient encounter procedure 11/15/2024 2:20 PM EDT Appointment Mammogram [address] [place] [address] LATRELL SCREENING W FELIZ Mammogram Comment on above: LATRELL SCREENING W FELIZ Start: 11-14-2024 End: 11-14-2024 Patient encounter procedure 11/14/2024 4:20 PM EDT Office Visit Endocrinology [address] [place] [address] Daksha Anton MD [address] [place] [address] 2 month f/u-uncontroled sugar Endocrinology Comment on above: 2 month f/u-uncontro led sugar Start: 10-30-2024 Hemoglobin A1c measurement HbA1C [facility] Start: 10-26-2024 End: 10-26-2024 Patient encounter procedure 10/26/2024 1:30 PM EDT Appointment Mammogram [address] [place] [address] screening / here Mammogram Comment on above: screening / here Start: 10-23-2024 End: 01-22-2025 Comprehensive metabolic 2000 panel - Serum or Plasma COMPREHENSIVE METABOLIC PANEL Lab Routine Poorly controlled diabetes mellitus (HCC) Mixed hyperlipidemia Expected: 10/23/2024, Expires: 01/22/2025 [facility] Comment on above: Expected: 10/23/2024 , Expires: 01/22/2025 Start: 10-23-2024 End: 01-22-2025 Hemoglobin A1c in Blood HEMOGLOBIN A1C Lab Routine Poorly controlled diabetes mellitus (HCC) Expected: 10/23/2024, Expires: 01/22/2025 [facility] Comment on above: Expected: 10/23/2024 , Expires: 01/22/2025 Start: 10-23-2024 End: 01-22-2025 Lipid 1996 panel - Serum or Plasma LIPID PANEL, FASTING Lab Routine Mixed hyperlipidemia Expected: 10/23/2024, Expires: 01/22/2025 [facility] Comment on above: Expected: 10/23/2024 , Expires: 01/22/2025 Start: 10-23-2024 End: 01-22-2025 THYROID PEROXIDASE ANTIBODY THYROID PEROXIDASE ANTIBODY Lab Routine Enlarged thyroid Expected: 10/23/2024, Expires: 01/22/2025 [facility] Comment on above: Expected: 10/23/2024 , Expires: 01/22/2025 Start: 10-23-2024 End: 01-22-2025 Thyrotropin [Units/volume] in Serum or Plasma THYROID STIMULATING HORMONE Lab Routine Enlarged thyroid Expected: 10/23/2024, Expires: 01/22/2025 [facility] Work Phone: Comment on above: Expected: 10/23/2024 , Expires: 01/22/2025 Start: 10-23-2024 End: 01-22-2025 Thyroxine (T4) free [Mass/volume] in Serum or Plasma T4 FREE/FREE THYROXINE Lab Routine Enlarged thyroid Expected: 10/23/2024, Expires: 01/22/2025 [facility] Comment on above: Expected: 10/23/2024 , Expires: 01/22/2025 Start: 10-20-2024 End: 10-20-2024 Patient encounter procedure Radiology Comment on above: Thyroid fullness [E0 7.89] Stenosis of carotid artery, unspecified laterality [I65.29] Start: 09-26-2024 End: 09-26-2024 Nursing evaluation of patient and report 09/26/2024 4:00 PM EDT Nurse Visit Endocrinology [address] [place], [place] [phone] Eleazar Franks, ARVIND [address] [phone] Diabetes mellitus type 2 (HCC) [E11.9] Endocrinology Comment on above: Diabetes mellitus ty pe 2 (HCC) [E11.9] Start: 09-21-2024 Annual PCP Team Insight Director lisa Disease Visit Annual PCP Team Chronic Disease Visit [facility] Start: 09-21-2024 BP Controlled (<130/80) BP Controlle d (<130/80) [facility] Start: 09-21-2024 Creatinine measurement Serum Creatin ine [facility] Start: 09-21-2024 End: 09-21-2024 Patient encounter procedure 09/21/2024 9:00 AM EDT Office Visit Pain Management [address] [address] Barbara Bran, OXYGEN THERAPIST.STAVE SAW OPERATOR [address] [place] [address] MED REFILL Pain Management Comment on above: MED REFILL Start: 09-18-2024 End: 09-18-2024 Patient encounter procedure Cardiology Comment on above: 6 MONTH FOLLOW UP Start: 09-18-2024 End: 09-18-2024 Patient encounter procedure Podiatry Comment on above: rescheduled from Start: 09-15-2024 End: 09-15-2024 Patient encounter procedure 09/15/2024 1:00 PM EDT Office Visit Endocrinology [address] [place] [address] Daksha Anton MD [address] [place] [address] consult for uncontroled sugar Endocrinology Comment on above: consult for uncontro led sugar Start: 09-04-2024 End: 09-04-2024 Patient encounter procedure 09/04/2024 2:15 PM EDT Office Visit Orthopaedics [address] [place] [address] Luis Menendez MD [address] [place] [address] Pain in both hands [M79.641, M79.642] Orthopaedics Comment on above: Pain in both hands [ M79.641, M79.642] Start: 08-30-2024 End: 08-30-2024 Patient encounter procedure 08/30/2024 3:40 PM EDT Office Visit [facility] [place] [address] [place] [address] Sakshi Li APRN.STAVE SAW OPERATOR [address] [place] [address] 4 wk follow up [facility] [place] Comment on above: 4 wk follow up Start: 08-22-2024 End: 08-22-2024 Patient encounter procedure 08/22/2024 2:45 PM EST Office Visit Podiatry [address] [place], [place] [phone] Silvio Cook [address] [address] Onychomycosis [B35.1] Podiatry Comment on above: Onychomycosis [B35.1 ] Start: 08-13-2024 Annual PCP Team Insight Director lisa Disease Visit Annual PCP Team Chronic Disease Visit [facility] Start: 08-13-2024 BP Controlled (<130/80) BP Controlle d (<130/80) [facility] Start: 08-13-2024 Complete blood count Hemoglobin/Austin tocrit [facility] Start: 08-13-2024 Creatinine measurement Serum Creatin ine [facility] Start: 08-13-2024 Hepatitis B Vaccine (1 of 3 - 19+ 3-dose series) Hepatitis B Vaccine (1 of 3 - 19+ 3-dose series) [facility] Comment on above: Postponed from 05/16 (Declined at this time) Start: 08-13-2024 Hepatitis B Vaccine (1 of 3 - 3-dose series) Hepatitis B Vaccine (1 of 3 - 3-dose series) [facility] Comment on above: Postponed from 05/16 (Declined at this time) Start: 08-13-2024 Shingrix Vaccine (1 of 2) Shingrix Vaccine (1 of 2) [facility] Comment on above: Postponed from 05/16 (Declined at this time) Start: 08-09-2024 Hemoglobin A1c measurement HbA1C [facility] Start: 08-05-2024 Glaucoma screening Dilated Retinal E xam [facility] Start: 08-02-2024 End: 08-02-2024 Patient encounter procedure 08/02/2024 4:00 PM EST Office Visit [facility] [place] [address] [place] [address] Garrett Ventura MD [address] [place] [address] 6 mo f/u Family [facility] Comment on above: 6 mo f/u Start: 08-02-2024 End: 11-01-2024 Basic metabolic 2000 panel - Serum or Plasma [facility] Comment on above: Expected: 08/02/2024 , Expires: 11/01/2024 Start: 08-02-2024 End: 11-01-2024 Hemoglobin A1c in Blood [facility] Comment on above: Expected: 08/02/2024 , Expires: 11/01/2024 Start: 08-02-2024 End: 11-01-2024 LIPID PANEL, NONFASTING [facility] Comment on above: Expected: 08/02/2024 , Expires: 11/01/2024 Start: 08-02-2024 End: 11-01-2024 Microalbumin/Creatinine [Mass Ratio] in Urine [facility] Comment on above: Expected: 08/02/2024 , Expires: 11/01/2024 Start: 06-12-2024 End: 06-12-2024 Patient encounter procedure Mammogram Comment on above: MAMMO / ANNUAL Start: 06-10-2024 BP Controlled (<130/80) BP Controlle d (<130/80) [facility] Start: 06-10-2024 Complete blood count Hemoglobin/Austin tocrit [facility] Start: 06-10-2024 Creatinine measurement Serum Creatin ine [facility] Start: 06-10-2024 Hepatitis B surface antibody level LDL Cholesterol [facility] Start: 03-23-2024 Colorectal Cancer Screening Colorectal Cancer Screening [facility] Start: 03-23-2024 Fecal Occult Blood Fecal Occult Bloo d [facility] Start: 03-23-2024 Screening for malign ant neoplasm of colon [facility] Start: 03-20-2024 End: 03-14-2025 ECG COMPLETE [facility] Work Phone: Comment on above: Expected: 03/20/2024 , Expires: 03/14/2025 Start: 03-20-2024 End: 03-20-2024 Patient encounter procedure 03/20/2024 2:00 PM EDT Office Visit Cardiology [address] [place] [id number] Tracy Sauer MD [address] [facility], [address] [place] [address] 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 Cardiology Comment on above: 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 mes[place] heart with an... Start: 03-11-2024 Mammography [facility] Start: 03-11-2024 Screening for malign ant neoplasm of breast Mammogram Screening [facility] Start: 02-22-2024 End: 02-22-2024 Patient encounter procedure 02/22/2024 3:30 PM EDT Office Visit Pain Management [address] [phone] Barbara Bran, OXYGEN THERAPIST.STAVE SAW OPERATOR [address] [place], [place] [phone] Medication refill Pain Management Comment on above: Medication refill Start: 02-20-2024 Influenza vaccination [facility] Start: 02-16-2024 End: 02-16-2024 Patient encounter procedure 02/16/2024 1:00 PM EDT [facility] [address] [place] [address] [place] [address] [place] [address] Renal insufficiency [N28.9]; CKD (chronic kidney disease) stage 4, GFR 15-29 ml/min (HCC) [N18.4] Kidney Medicine Comment on above: Renal insufficiency [N28.9]; CKD (chronic kidney disease) stage 4, GFR 15-29 ml/min (HCC) [N18.4] Start: 02-09-2024 3 comp foot exam completed Diabetic Foot Exam [facility] Start: 02-09-2024 ANNUAL PCP TEAM OWNER OPERATOR LISA DISEASE VISIT ANNUAL PCP TEAM CHRONIC DISEASE VISIT [facility] Start: 02-09-2024 BP CONTROLLED (<130/80) BP CONTROLLE D (<130/80) [facility] Start: 02-09-2024 Diabetic foot examination Diabetic Foot Exam [facility] Start: 02-09-2024 HIV SCREENING HIV SCREENING [facility] Comment on above: Postponed from 05/16 (Declined at this time) Start: 02-09-2024 HIV screening HIV Screening [facility] Comment on above: Postponed from 05/16 (Declined at this time) Start: 02-02-2024 End: 02-02-2024 Patient encounter procedure 02/02/2024 1:00 PM EDT Appointment Radiology [address] [place], [place] [address] Renal insufficiency [N28.9]; CKD (chronic kidney disease) stage 4, GFR 15-29 ml/min (HCC) [N18.4] Radiology Comment on above: Renal insufficiency [N28.9]; CKD (chronic kidney disease) stage 4, GFR 15-29 ml/min (HCC) [N18.4] Start: 01-24-2024 End: 01-24-2024 Patient encounter procedure 01/24/2024 5:40 PM EDT Office Visit Family [facility] [address] [place], [place] [phone] Garrett Ventura MD [address] [place] [address] 4 month follow up [facility] Comment on above: 4 month follow up Start: 01-24-2024 End: 04-24-2024 Calcium.ionized [Moles/volume] in Blood CALCIUM, IONIZED Lab Routine Hypercalcemia Expected: 01/24/2024, Expires: 04/24/2024 [facility] Comment on above: Expected: 01/24/2024 , Expires: 04/24/2024 Start: 01-24-2024 End: 04-24-2024 CBC W Auto Differential panel - Blood COMPLETE BLOOD COUNT AND DIFFERENTIAL Lab Routine Controlled type 2 diabetes mellitus without complication, without long-term current use of insulin (HCC) Expected: 01/24/2024, Expires: 04/24/2024 [facility] Work Phone: Comment on above: Expected: 01/24/2024 , Expires: 04/24/2024 Start: 01-24-2024 End: 04-24-2024 Comprehensive metabolic 2000 panel - Serum or Plasma COMPREHENSIVE METABOLIC PANEL Lab Routine Controlled type 2 diabetes mellitus without complication, without long-term current use of insulin (HCC) Hypercalcemia Expected: 01/24/2024, Expires: 04/24/2024 [facility] Comment on above: Expected: 01/24/2024 , Expires: 04/24/2024 Start: 01-24-2024 End: 04-24-2024 Hemoglobin A1c in Blood HEMOGLOBIN A1C Lab Routine Controlled type 2 diabetes mellitus without complication, without long-term current use of insulin ([facility]) Expected: 01/24/2024, Expires: 04/24/2024 [facility] Comment on above: Expected: 01/24/2024 , Expires: 04/24/2024 Start: 01-24-2024 End: 04-24-2024 Parathyrin.intact [Mass/volume] in Serum or Plasma PTH INTACT Lab Routine Hypercalcemia Expected: 01/24/2024, Expires: 04/24/2024 [facility] Comment on above: Expected: 01/24/2024 , Expires: 04/24/2024 Start: 01-24-2024 End: 04-24-2024 Phosphate [Mass/volume] in Serum or Plasma PHOSPHORUS INORGANIC Lab Routine Hypercalcemia Expected: 01/24/2024, Expires: 04/24/2024 [facility] Comment on above: Expected: 01/24/2024 , Expires: 04/24/2024 Start: 12-19-2023 Influenza vaccination Influenza Vacc ine (#1) [facility] Comment on above: Postponed from 02/19 (Declined at this time) Start: 12-10-2023 Hemoglobin A1c measurement HbA1C [facility] Start: 12-01-2023 End: 12-01-2023 Patient encounter procedure 12/01/2023 10:00 AM EDT Office Visit Pain Management [address] [address] Barbara Bran, OXYGEN THERAPIST.STAVE SAW OPERATOR [address] [place] [address] Med Refill Pain Management Comment on above: Med Refill Start: 09-24-2023 End: 12-24-2023 Calcitriol [Mass/volume] in Serum or Plasma VITAMIN D1 25-DIHYDR Lab Routine Hypercalcemia Expected: 09/24/2023, Expires: 12/24/2023 [facility] Work Phone: Comment on above: Expected: 09/24/2023 , Expires: 12/24/2023 Start: 09-24-2023 End: 12-24-2023 Calcium.ionized [Moles/volume] in Blood CALCIUM IONIZED BLOOD Lab Routine Hypercalcemia Expected: 09/24/2023, Expires: 12/24/2023 [facility] Work Phone: Comment on above: Expected: 09/24/2023 , Expires: 12/24/2023 Start: 09-24-2023 End: 12-24-2023 Parathyrin related protein [Moles/volume] in Serum or Plasma PTH RELATED PEPTIDE Lab Routine Hypercalcemia Expected: 09/24/2023, Expires: 12/24/2023 [facility] Work Phone: Comment on above: Expected: 09/24/2023 , Expires: 12/24/2023 Start: 09-22-2023 End: 09-21-2024 25-hydroxyvitamin D3 [Mass/volume] in Serum or Plasma [facility] Work Phone: Comment on above: Expected: 09/22/2023 , Expires: 09/21/2024 Start: 09-22-2023 End: 12-22-2023 Basic metabolic 2000 panel - Serum or Plasma [facility] Work Phone: Comment on above: Expected: 09/22/2023 , Expires: 12/22/2023 Start: 09-22-2023 End: 09-21-2024 Parathyrin.intact [Mass/volume] in Serum or Plasma [facility] Work Phone: Comment on above: Expected: 09/22/2023 , Expires: 09/21/2024 Start: 08-13-2023 End: 11-12-2023 ALBUMIN/CREAT RATIO RND UR ALBUMIN/CREAT RATIO RND UR Lab Routine Controlled type 2 diabetes mellitus without complication, without long-term current use of insulin (HCC) Expected: 08/13/2023, Expires: 11/12/2023 [facility] Work Phone: Comment on above: Expected: 08/13/2023 , Expires: 11/12/2023 Start: 08-13-2023 End: 11-12-2023 CBC W Auto Differential panel - Blood [facility] Work Phone: Comment on above: Expected: 08/13/2023 , Expires: 11/12/2023 Start: 08-13-2023 End: 11-12-2023 Erythrocyte sedimentation rate [facility] Work Phone: Comment on above: Expected: 08/13/2023 , Expires: 11/12/2023 Start: 08-13-2023 End: 11-12-2023 Urate [Mass/volume] in Serum or Plasma [facility] Work Phone: Comment on above: Expected: 08/13/2023 , Expires: 11/12/2023 Start: 06-21-2023 Behavioral Health Screening Behavioral Health Screening [facility] Start: 06-12-2023 BP CONTROLLED (<130/80) BP CONTROLLE D (<130/80) [facility] Start: 05-11-2023 End: 07-11-2023 Hemoglobin A1c in Blood HGB A1C Lab Routine Controlled type 2 diabetes mellitus without complication, without long-term current use of insulin (HCC) Expected: 05/11/2023, Expires: 07/11/2023 [facility] Work Phone: Comment on above: Expected: 05/11/2023 , Expires: 07/11/2023 Start: 05-05-2023 End: 08-04-2023 25-hydroxyvitamin D3 [Mass/volume] in Serum or Plasma VITAMIN D 25 HYDROXY Lab Routine Disorder of bone Expected: 05/05/2023, Expires: 08/04/2023 [facility] Work Phone: Comment on above: Expected: 05/05/2023 , Expires: 08/04/2023 Start: 04-29-2023 ANNUAL PCP TEAM OWNER OPERATOR LISA DISEASE VISIT ANNUAL PCP TEAM CHRONIC DISEASE VISIT [facility] Start: 04-29-2023 BP CONTROLLED (<130/80) BP CONTROLLE D (<130/80) [facility] Start: 04-24-2023 Glaucoma screening Dilated Retinal E xam [facility] Start: 04-24-2023 Hepatitis C antibody , confirmatory test DILATED RETINAL EXAM [facility] Start: 04-08-2023 COLORECTAL CANCER SCREENING COLORECTAL CANCER SCREENING [facility] Start: 04-08-2023 FECAL OCCULT BLOOD FECAL OCCULT BLOO D [facility] Start: 03-30-2023 BP CONTROLLED (<130/80) BP CONTROLLE D (<130/80) [facility] Start: 03-16-2023 ANNUAL PCP TEAM OWNER OPERATOR LISA DISEASE VISIT ANNUAL PCP TEAM CHRONIC DISEASE VISIT [facility] Start: 03-16-2023 BP CONTROLLED (<130/80) BP CONTROLLE D (<130/80) [facility] Start: 03-16-2023 SERUM CREATININE SERUM CREATININE [facility] Start: 03-02-2023 ANNUAL PCP TEAM OWNER OPERATOR LISA DISEASE VISIT ANNUAL PCP TEAM CHRONIC DISEASE VISIT [facility] Start: 03-02-2023 BP CONTROLLED (<130/80) BP CONTROLLE D (<130/80) [facility] Start: 03-02-2023 SERUM CREATININE SERUM CREATININE [facility] Start: 02-19-2023 Influenza vaccination C [facility] Start: 02-13-2023 Adult depression screening assessment DEPRESSION SCREENING [facility] Start: 02-13-2023 ANNUAL PCP TEAM OWNER OPERATOR LISA DISEASE VISIT ANNUAL PCP TEAM CHRONIC DISEASE VISIT [facility] Start: 02-13-2023 BP CONTROLLED (<130/80) BP CONTROLLE D (<130/80) [facility] Start: 02-13-2023 HEMOGLOBIN/HEMATOCRIT HEMOGLOBIN/HEM ATOCRIT [facility] Start: 02-13-2023 Hepatitis B surface antibody level LDL CHOLESTEROL [facility] Start: 02-13-2023 SERUM CREATININE SERUM CREATININE [facility] Start: 02-08-2023 End: 04-10-2023 ALBUMIN/CREAT RATIO RND UR ALBUMIN/CREAT RATIO RND UR Lab Routine Controlled type 2 diabetes mellitus without complication, without long-term current use of insulin (HCC) Expected: 02/08/2023, Expires: 04/10/2023 [facility] Work Phone: Comment on above: Expected: 02/08/2023 , Expires: 04/10/2023 Start: 02-08-2023 End: 04-10-2023 CBC W Auto Differential panel - Blood CBC + DIFF Lab Routine Controlled type 2 diabetes mellitus without complication, without long-term current use of insulin (HCC) 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 (HCC) Anxiety Expected: 02/08/2023, Expires: 04/10/2023 [facility] Work Phone: Comment on above: Expected: 02/08/2023 , Expires: 04/10/2023 Start: 02-08-2023 End: 04-10-2023 Comprehensive metabolic 2000 panel - Serum or Plasma COMP METABOLIC PANEL Lab Routine Controlled type 2 diabetes mellitus without complication, without long-term current use of insulin (HCC) Mixed hyperlipidemia Anxiety Expected: 02/08/2023, Expires: 04/10/2023 [facility] Work Phone: Comment on above: Expected: 02/08/2023 , Expires: 04/10/2023 Start: 02-08-2023 End: 04-10-2023 Lipid 1996 panel - Serum or Plasma LIPID PANEL BASIC Lab Routine Mixed hyperlipidemia Expected: 02/08/2023, Expires: 04/10/2023 [facility] Work Phone: Comment on above: Expected: 02/08/2023 , Expires: 04/10/2023 Start: 08-28-2022 BP CONTROLLED (<130/80) BP CONTROLLE D (<130/80) [facility] Start: 08-16-2022 Hemoglobin A1c/Hemoglobin.total in Blood HBA1C [facility] Start: 06-21-2022 DEPRESSION ASSESSMENT DEPRESSION ASS ESSMENT [facility] Start: 06-18-2022 ANNUAL PCP TEAM OWNER OPERATOR LISA DISEASE VISIT ANNUAL PCP TEAM CHRONIC DISEASE VISIT [facility] Start: 06-18-2022 HEMOGLOBIN/HEMATOCRIT HEMOGLOBIN/HEM ATOCRIT [facility] Start: 06-18-2022 Hepatitis B screening URINE ALBUMIN:CREATININE RATIO [facility] Start: 06-18-2022 Hepatitis B surface antibody level LDL CHOLESTEROL [facility] Start: 06-18-2022 SERUM CREATININE SERUM CREATININE [facility] Start: 03-12-2022 Hepatitis C antibody , confirmatory test DILATED RETINAL EXAM [facility] Start: 02-20-2022 3 comp foot exam completed DIABETIC FOOT EXAM [facility] Start: 02-19-2022 Influenza vaccination INFLUENZA (#1) [facility] Start: 02-16-2022 End: 02-16-2023 Basic metabolic 2000 panel - Serum or Plasma BASIC METABOLIC PNL Lab Routine Chronic renal failure, stage 3b (HCC) Expected: 02/16/2022, Expires: 02/16/2023 [facility] Work Phone: Comment on above: Expected: 02/16/2022 , Expires: 02/16/2023 Start: 02-16-2022 End: 02-16-2023 Calcium.ionized [Moles/volume] in Blood CALCIUM IONIZED BLOOD Lab Routine Hypercalcemia Expected: 02/16/2022, Expires: 02/16/2023 [facility] Work Phone: Comment on above: Expected: 02/16/2022 , Expires: 02/16/2023 Start: 02-16-2022 End: 02-16-2023 Parathyrin.intact [Mass/volume] in Serum or Plasma PTH INTACT BLD Lab Routine Hypercalcemia Expected: 02/16/2022, Expires: 02/16/2023 [facility] Work Phone: Comment on above: Expected: 02/16/2022 , Expires: 02/16/2023 Start: 02-13-2022 End: 04-15-2022 CBC W Auto Differential panel - Blood [facility] Work Phone: Comment on above: Expected: 02/13/2022 , Expires: 04/15/2022 Start: 02-13-2022 End: 04-15-2022 Comprehensive metabolic 2000 panel - Serum or Plasma [facility] Work Phone: Comment on above: Expected: 02/13/2022 , Expires: 04/15/2022 Start: 02-13-2022 End: 04-15-2022 Hemoglobin A1c in Blood [facility] Work Phone: Comment on above: Expected: 02/13/2022 , Expires: 04/15/2022 Start: 02-13-2022 End: 04-15-2022 LIPID PANEL, NONFASTING [facility] Work Phone: Comment on above: Expected: 02/13/2022 , Expires: 04/15/2022 Start: 02-13-2022 End: 04-15-2022 Thyrotropin [Units/volume] in Serum or Plasma [facility] Work Phone: Comment on above: Expected: 02/13/2022 , Expires: 04/15/2022 Start: 02-13-2022 End: 04-15-2022 Thyroxine (T4) free [Mass/volume] in Serum or Plasma [facility] Work Phone: Comment on above: Expected: 02/13/2022 , Expires: 04/15/2022 Start: 12-17-2021 Hemoglobin A1c/Hemoglobin.total in Blood HBA1C [facility] Start: 09-21-2021 HPV TESTING HPV TESTING [facility] Start: 09-21-2021 PAP TESTING PAP TESTING [facility] Start: 09-21-2021 Screening for malign ant neoplasm of cervix [facility] Start: 06-21-2021 DEPRESSION ASSESSMENT DEPRESSION ASS ESSMENT [facility] Start: 07-21-2020 Mammography MAMMOGRAM [facility] Start: 12-28-2019 PNEUMOCOCCAL (2 - PCV) PNEUMOCOCCAL (2 - PCV) [facility] Start: 03-08-2019 Adult depression screening assessment DEPRESSION SCREENING [facility] Start: 05-07-2018 COLORECTAL CANCER SCREENING COLORECTAL CANCER SCREENING [facility] Start: 05-07-2018 FECAL OCCULT BLOOD FECAL OCCULT BLOO D [facility] Start: 2015 SHINGRIX VACCINE (1 of 2) SHINGRIX VACCINE (1 of 2) [facility] Start: 2010 COLOGUARD (FIT-DNA) COLOGUARD (FIT-D NA) [facility] Start: 2010 Colonoscopy COLONOSCOPY [facility] Start: [address] COLONOGRAPHY [facility] Start: 2010 Screening for malign ant neoplasm of colon [facility] Start: 2010 SIGMOIDOSCOPY SIGMOIDOSCOPY [facility] Start: 1984 HEPATITIS B (1 of 3 - Risk 3-dose series) HEPATITIS B (1 of 3 - Risk 3-dose series) [facility] Start: 1983 BP CONTROLLED (<130/80) BP CONTROLLE D (<130/80) [facility] Start: 1983 HIV SCREENING HIV SCREENING [facility] Start: 1983 HIV screening HIV Screening [facility] Start: 1970 COVID-19 VACCINE (#1) COVID-19 VACCI NE (#1) [facility] Start: 1970 COVID-19 VACCINE (1) COVID-19 VACCIN E (1) [facility] Start: 1965 COVID-19 VACCINE (#1) COVID-19 VACCI NE (#1) [facility] Start: 1965 HEPATITIS B (1 of 3 - 3-dose series) HEPATITIS B (1 of 3 - 3-dose series) [facility] Start: 1965 Hepatitis B Vaccine (1 of 3 - 3-dose series) Hepatitis B Vaccine (1 of 3 - 3-dose series) [facility] Bacteria identified in Urine by Culture URINE CULTURE Microbiology Routine Stage 3b chronic kidney disease (HCC) 03/02/2022 10:23 AM EDT [facility] Work Phone: Basic metabolic 2000 panel - Serum or Plasma BASIC METABOLIC PNL Lab Routine Chronic renal failure, stage 3b (HCC) 02/19/2022 8:38 AM EDT [facility] Work Phone: Calcium.ionized [Moles/volume] in Blood CALCIUM IONIZED BLOOD Lab Routine Hypercalcemia 02/19/2022 8:38 AM EDT [facility] Work Phone: COLOGUARD COLOGUARD Lab Ro utine Screening for colon cancer Ordered: 08/02/2024 [facility] Comment on above: Ordered: 08/02/2024 COVID & INFLUENZA A/ B & RSV PCR, ROUTINE COVID & INFLUENZA A/B & RSV PCR, ROUTINE Microbiology Routine Viral URI with cough Ordered: 03/03/2025 [facility] Work Phone: Comment on above: Ordered: 03/03/2025 CYTOLOGY NON-DIE REPAIR CYTOLOGY NON-GY N Lab Routine Multinodular goiter Ordered: 01/05/2022 [facility] Work Phone: Comment on above: Ordered: 01/05/2022 End: 07-14-2025 DBT Breast - bilateral screening LATRELL SCREENING W FELIZ Radiology Routine Encounter for screening mammogram for breast cancer 1 Occurrences starting 06/14/2024 until 07/14/2025 [facility] Work Phone: Comment on above: 1 Occurrences starti ng 06/14/2024 until 07/14/2025 End: 03-09-2024 DXA-AXIAL SKELETON DXA-AXIAL SKELETON Radiology Routine Asymptomatic postmenopausal status 1 Occurrences starting 02/08/2023 until 03/09/2024 [facility] Work Phone: Comment on above: 1 Occurrences starti ng 02/08/2023 until 03/09/2024 End: 02-13-2023 ECG COMPLETE ECG COMPLETE ECG Routine Dizziness 1 Occurrences starting 02/13/2022 until 02/13/2023 [facility] Work Phone: Comment on above: 1 Occurrences starti ng 02/13/2022 until 02/13/2023 End: 03-02-2023 EXERCISE STRESS ECG (WITHOUT IMAGING) EXERCISE STRESS ECG (WITHOUT IMAGING) Cardiology Routine Shortness of breath 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 (HCC) 1 Occurrences starting 03/02/2022 until 03/02/2023 [facility] Work Phone: Comment on above: 1 Occurrences starti ng 03/02/2022 until 03/02/2023 Hemoglobin.gastroint est inal.lower [Presence] in Stool by Immunoassay FECAL OCCULT BLOOD TEST Lab Routine Screening for colon cancer Ordered: 02/08/2023 [facility] Work Phone: Comment on above: Ordered: 02/08/2023 End: 02-12-2024 LATRELL SCREENING LATRELL SCREENING Radiology Routine Encounter for screening mammogram for breast cancer 1 Occurrences starting 01/13/2023 until 02/12/2024 [facility] Work Phone: Comment on above: 1 Occurrences starti ng 01/13/2023 until 02/12/2024 End: 03-09-2024 LATRELL SCREENING LATRELL SCREENING Radiology Routine Encounter for screening mammogram for malignant neoplasm of breast 1 Occurrences starting 02/08/2023 until 03/09/2024 [facility] Work Phone: Comment on above: 1 Occurrences starti ng 02/08/2023 until 03/09/2024 End: 07-09-2024 LATRELL SCREENING LATRELL SCREENING Radiology Routine Encounter for screening mammogram for breast cancer 1 Occurrences starting 06/10/2023 until 07/09/2024 [facility] Work Phone: Comment on above: 1 Occurrences starti ng 06/10/2023 until 07/09/2024 Microorganism identified in Unspecified specimen by Culture FUNGAL CULTURE AND SMEAR - DERMAL (HAIR, SKIN AND NAIL) Microbiology Routine Onychomycosis 09/18/2024 1:42 PM EDT [facility] Work Phone: NM CARDIAC PERF STRESS/PHARM NM CARDIAC PERF STRESS/PHARM Radiology Routine 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 (HCC) Ordered: 03/25/2022 [facility] Work Phone: Comment on above: Ordered: 03/25/2022 PAP TEST PAP TEST Lab [facility] Screening for cervical cancer Encounter for gynecological examination (general) (routine) without abnormal findings Encounter for screening for human papillomavirus (HPV) Pap smear for cervical cancer screening 06/10/2023 10:50 AM EST [facility] Work Phone: Parathyrin.intact [Mass/volume] in Serum or Plasma PTH INTACT BLD Lab Routine Hypercalcemia 02/19/2022 8:38 AM EDT [facility] Work Phone: End: 08-30-2025 US Carotid arteries - bilateral US CAROTID ARTERIES [facility] Vascular Lab Routine Stenosis of carotid artery, unspecified laterality 1 Occurrences starting 08/30/2024 until 08/30/2025 [facility] Work Phone: Comment on above: 1 Occurrences starti ng 08/30/2024 until 08/30/2025 End: 02-13-2023 US CAROTID ARTERIES [facility] US CAROTID ARTERIES [facility] Vascular Lab Routine Dizziness 1 Occurrences starting 02/13/2022 until 02/13/2023 [facility] Work Phone: Comment on above: 1 Occurrences starti ng 02/13/2022 until 02/13/2023 End: 10-22-2024 US Kidney - bilateral and Urinary bladder US KIDNEY/BLADDER Radiology Routine Renal insufficiency CKD (chronic kidney disease) stage 4, GFR 15-29 ml/min (HCC) 1 Occurrences starting 09/23/2023 until 10/22/2024 [facility] Work Phone: Comment on above: 1 Occurrences starti ng 09/23/2023 until 10/22/2024 US Kidney - bilatera l and Urinary bladder US KIDNEY/BLADDER Radiology Routine Renal insufficiency CKD (chronic kidney disease) stage 4, GFR 15-29 ml/min (HCC) 02/07/2024 1:51 PM EDT [facility] Work Phone: End: 04-01-2023 US KIDNEY/BLADDER US KIDNEY/BLADDER Radiology Routine Stage 3b chronic kidney disease (HCC) 1 Occurrences starting 03/02/2022 until 04/01/2023 [facility] Work Phone: Comment on above: 1 Occurrences starti ng 03/02/2022 until 04/01/2023 End: 09-29-2025 US Thyroid gland US THYROID/PARATHYROID Radiology Routine Thyroid fullness 1 Occurrences starting 08/30/2024 until 09/29/2025 [facility] Comment on above: 1 Occurrences starti ng 08/30/2024 until 09/29/2025 US Thyroid gland US THYROID/PARA THYROID Radiology Routine Thyroid fullness 10/20/2024 7:35 AM EDT [facility] Work Phone: End: 09-01-2025 XR Hand - bilateral PA and Lateral and Oblique XR HAND GENERAL 3V PA/LAT/OBL BILATERAL Radiology Routine Pain in both hands Trigger middle finger of right hand 1 Occurrences starting 08/02/2024 until 09/01/2025 [facility] Work Phone: Comment on above: 1 Occurrences starti ng 08/02/2024 until 09/01/2025 XR Hand - bilateral PA and Lateral and Oblique XR HAND GENERAL 3V PA/LAT/OBL BILATERAL Radiology Routine Pain in both hands Trigger middle finger of right hand 08/02/2024 4:42 PM EST [facility] End: 09-11-2024 XR Hand - right PA and Lateral and Oblique XR HAND GENERAL 3V PA/LAT/OBL RIGHT Radiology Routine Swelling of right hand 1 Occurrences starting 08/13/2023 until 09/11/2024 [facility] Work Phone: Comment on above: 1 Occurrences starti ng 08/13/2023 until 09/11/2024 XR Hand - right PA a nd Lateral and Oblique XR HAND GENERAL 3V PA/LAT/OBL RIGHT Radiology Routine Swelling of right hand 08/13/2023 4:31 PM EST [facility] Work Phone: [facility] Immunizations Immunization Date Immunization Notes Care Provider Fa [facility] 05-23-2024 influenza, seasonal, injectable, preservative free Garrett Ventura MD Work Phone: [facility] 05-23-2024 influenza virus vaccine, unspecified formulation Sakshi Li APRN.CNP Work Phone: [facility] 02-08-2023 pneumococcal Conjugate, unspecified formulation MIGUELANGEL Stone PA-C Work Phone: [facility] Work Phone: 02-08-2023 pneumococcal (PCV20) vaccine, 20 valent (PREVNAR 20) MIGUELANGEL Stone PA-C Work Phone: [facility] 06-18-2021 influenza, injectabl e, quadrivalent, contains preservative Antoni Reyna MD Work Phone: [facility] 06-18-2021 influenza virus vaccine, unspecified formulation Garrett Ventura MD Work Phone: [facility] 07-06-2020 influenza, injectabl e, quadrivalent, contains preservative Antoni Reyna MD Work Phone: [facility] 12-27-2018 pneumococcal polysaccharide vaccine, 23 valent Antoni Reyna MD Work Phone: [facility] 10-23-2017 tetanus toxoid, reduced diphtheria toxoid, and acellular pertussis vaccine, adsorbed Antoni Reyna MD Work Phone: [facility] 05-14-2015 influenza, injectabl e, quadrivalent, contains preservative Antoni Reyna MD Work Phone: [facility] 03-17-2014 influenza, seasonal, injectable Antoni Reyna MD Work Phone: [facility] 05-22-2013 influenza virus vaccine, unspecified formulation Antoni Reyna MD Work Phone: [facility] 04-25-2012 pneumococcal polysaccharide vaccine, 23 valent Antoni Reyna MD Work Phone: [facility] 03-25-2012 influenza virus vaccine, unspecified formulation Antoni Reyna MD Work Phone: [facility] 02-13-2011 tetanus toxoid, reduced diphtheria toxoid, and acellular pertussis vaccine, adsorbed Antoni Reyna MD Work Phone: [facility] Payers Date Payer Category Payer Medicaid [id number] 2013 Medicaid [id number] 2013 Medicaid [employer] [facility] [id number] 2013-Present [phone] [address] [place] [address] Medicaid [id number] 2013 Medicaid [id number] Social History Date Type Detail Facility Start: 11-28-2015 End: 03-02-2022 Tobacco smoking status NVIS Smokes tobacco daily [facility] Start: 03-24-2003 End: 03-24-2023 History of tobacco use Cigarette Smoker [facility] Start: 07-06-2020 End: 08-28-2021 Alcohol intake Current non-drinker of alcohol (finding) [facility] Start: 06-20-2015 History SDOH Alcohol Comment Quit 2001 [facility] Start: 11-28-2015 End: 03-02-2022 Tobacco Comment TRYING TO QUIT-SMOKES 1-2 A DAY as of 11/28/15 [facility] Start: 1965 Sex Assigned At Not on file C [facility] Start: 06-06-2020 End: 03-23-2022 Exposure to SARS-CoV-2 (event) Not sure [facility] Start: 11-28-2015 End: 10-22-2022 Cigarettes smoked current (pack per day) - Reported 0.3 [facility] Start: 11-28-2015 End: 12-18-2024 Tobacco use and exposure Smokeless tobacco non-user [facility] Start: 07-27-2022 End: 10-22-2022 Tobacco use panel [facility] Start: 05-22-2012 National Score (1-10 0), lower number is lower risk 55 [facility] Start: 06-10-2023 End: 12-18-2024 Tobacco smoking status NHIS Ex-smoker [facility] Start: 03-24-2003 End: 03-24-2023 History of tobacco use Current smoker [facility] Start: 06-10-2023 End: 12-20-2024 Alcohol intake Ex-drinker (finding) [facility] History of tobacco use Passive smoker [facility] Medical Equipment Procedure Code Equipment Code Equipment Original Text Equipment Identifier Dates [id number], [id number], [id number], [id number], [id number], [id number], [id number], [id number], [id number], [id number], [id number], [id number], [id number], [id number], [id number], [id number], [id number] Start: 03-09-2018 End: 03-18-2025 Comment on above: Test blood sugar(s) 1 times daily. Dx: Type 2 DM - Controlled E11.9 Insulin: No testing once daily D X E11.9 Insulin No Test blood sugar(s) One time daily. Dx: Type 2 DM - Controlled E11.9 Insulin: No. Unilet Super Thin 30G Lancets USE TO TEST BLOOD BATES GAR EVERY DAY Test blood sugar(s) One time daily. Dx: Type 2 DM - Controlled E11.9 Insulin: No. Functional Status Date Assessment Result Facility 12-28-2014 Are you deaf, or do you have serious difficulty hearing No 12/28/2014 3:56 PM Rabia Daniels LPN No [facility] 12-28-2014 Are you blind, or do you have serious difficulty seeing, even when wearing glasses No 12/28/2014 3:56 PM Rabia Daniels LPN No [facility] 12-28-2014 Do you have serious difficulty walking or climbing stairs No 12/28/2014 3:56 PM Rabia Daniels LPN No [facility] 12-28-2014 Do you have difficul ty dressing or bathing No 12/28/2014 3:56 PM Rabia Daniels LPN No [facility] 12-28-2014 Because of a physica l, mental, or emotional condition, do you have difficulty doing errands alone such as visiting a physician's office or shopping Yes 12/28/2014 3:56 PM Rabia Daniels LPN Yes [facility] Mental Status Date Assessment Result Facility 12-28-2014 Because of a physica l, mental, or emotional condition, do you have serious difficulty concentrating, remembering, or making decisions No 12/28/2014 3:56 PM EDT Rabia Rose LPN No [facility] Clinical Notes 06-19-2013 to 04-26-2025 Patient InstructionsPraisler-Monica Du APRN.STAVE SAW OPERATOR - 03/03/2025 10:32 AM EDTTelephone Encounter - Sonja VermaBLADIMIR - 02/28/2025 9:00 AM EDTTtomManuelew - 01/18/2025 10:16 PM EDT Note Date & Type Note Facility 04-26-2025 Note HNO ID: [id number] Author: DAKSHA ANTON MD Service: ? Author Type: Physician Type: Progress Notes Filed: 04/29/2025 12:27 Note Text: [facility] Follow up note Referred by: Dr. Garrett Ventura MD (PCP) Chief complaint: Poorly controlled Type 2 DM My final recommendations will be communicated back to the requesting physician by way of shared medical record or letter via US mail. History of Present Illness: Roseann Viveros is a 59-year-old female with a history of DM, HTN, HLD, lumbar stenosis, and CKD, presenting for follow up of DM type 2 Initial visit 09/15/24 CHARLENE 11/14/24 -Initially diagnosed: 23 years ago, following the of her youngest child. Denied any surgeries on pancreas, pancreatitis in the past . Symptoms No recent weight loss; desires weight reduction. Reports polyuria; suspects current yeast infection with dysuria and pruritus. Complications: Cardiovascular -- Yes HTN, HLP, CAD Has a follow-up appointment with a extractions technologist on Wednesday to discuss potential cardiac catheterization due to dyspnea. Statin Use -- yes atorvastatin 80 mg daily Retinopathy -- no Last PRATEEK/Retina Eval: Last eye exam approximately one year ago; reports no retinopathy- underwent laser surgery on both eyes, improving vision. Advised to schedule appt but has not completed this yet Nephropathy -- CKD stage 3b NEPTALI/ARB Use -- no Polyneuropathy -- Occasional paresthesia in feet; no recent episodes. Foot Exam: none - done on initial office visit with [facility] Obesity -- No Other -- No -Family history of diabetes mellitus: in mother () and brother (complicated by open heart surgery and hypoglycemic car accident). Personal history of DKA or HHS-- No Personal history of pancreatitis-- No History of alcohol consumption--No Family history of thyroid cancer-- No Personal history of Urinary tract infections -- Reports burning sensation when urinating Diabetic education class: has completed with [facility] at [facility] on 09/26/2024 . Diabetes Medications -Current regimen: Tradjenta 5 mg and Jardiance 10 mg, 15 units lantus daily . -Misses doses: None -Adverse medication effects: none Reports being scared of needles, and does not prefer using insulin -Previously Used DM Meds: Yes Metformin - was on it for almost 20 years, had no side effects, was discontinued Glimepiride- d/cd due to unknown reasons per patient . Blood sugars -Self monitoring of blood sugar via fingerstick: advised twice daily - we discussed about CGM on initial visit, but she is worried she will not be able to afford it, so we decided to do finger sticks Mostly in 200s, ranging from 137 to 330 Considers blood glucose levels above 200 mg/dL as high and below 70-75 mg/dL as low. -Brought blood glucose log for review: yes -BG log reviewed: yes Reports missing lantus for few days due to running out of needles in the recent past . Hypoglycemia -Hypoglycemic episodes: no recent episodes -Frequency and timing of hypoglycemia: N/A -Hypoglycemia awareness: yes, feels diaphoretic Manages high blood glucose with crackers and low blood glucose with candy. . 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 -Diet: Breakfast: Lunch: Dinner: Typically eats one to two meals per day, often skipping breakfast. Eats dinner with son and his family- reports daughter in law is not making much pasta now ROS: SYSTEMIC: Denies fatigue, malaise, energy, Weight has been stable, heat/cold intolerance, polydipsia EYES: Denies blurring of vision, diplopia, pain/discomfort, excessive tearing, swelling of eye lids, bulging, redness, dryness, NECK: Denies goiter, lump, pain/discomfort, dysphagia, hoarseness, sore thorat RESPIRATORY: Denies dyspnea at rest/with exertion, orthopnea cough, pleuritic chest pain, snoring, apnea episodes CARDIOVASCULAR: Chest pain, palpitations, irregular heart beats GASTRO-INTESTINAL:Denies Nausea, vomiting, abdominal pain, hyperdefecation, rectal bleeding NEUROLOGICAL: Denies dizziness, lightheadedness, weakness, cramping, numbness/tingling of extremities MUSCULOSKELETAL: Denies joint pain, stiffness, swelling, cramping or weakness. GENITOURINARY: Denies polyuria, recurrent UTI/yeast infections SKIN: Denies dryness, brittle nails, hair loss, alopecia, excessive sweating, flushing, darkening of skin PSYCHIATRIC: Denies anxiety, depression, panic attacks, irritability, mood swings Past Medical History PAST MEDICAL HISTORY Diagnosis Date Anxiety 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 08/31/2016 Depression Diabetes mellitus (HCC) 2010 No nephropathy, neuropathy, retinopathy DJD (degenerative joint disease) of lumbar spine Hyperlipidemia 2011 Low back pain [id number] Unspecified , without mention of complicati (more content not included)... [facility] 03-29-2025 Note HNO ID: [id number] Author: BARBARA BRAN APRN.STAVE SAW OPERATOR Service: ? Author Type: Nurse Practitioner Type: Progress Notes Filed: 03/29/2025 15:19 Note Text: Subjective ///// Roseann Viveros presents to [facility] for a follow up appointment. Since the last visit, Roseann Viveros states the pain has been persistent. Current pain intensity is 9 on a scale of 0-10. Pain located in lower back area and radiates down BLE. Pain described as cramping, aching, and sharp Symptoms interfere with physical activity. Pain is exacerbated by unable to pinpoint exacerbating factors/positions. Pain is mitigated by medication and ice. The medications are effective. The patient states the last dose of robaxin and Citra was taken at the beginning of last month. Patient Entered Questionnaires PROMIS Score Percentiles 02/02/2023 PROMIS Global Health Scale Physical Health Percentile 2 Mental Health Percentile 2 02/02/2023 Physical Health Physical Function Percentile 12 Pain Interference Percentile 5 Percentiles provide an indication of how the patient's score ranks in relation to the general population. Higher percentile rankings indicate better function/quality of life. 50th percentile is the average of the general population and indicates half of respondents had a worse score. > 31st percentile is within normal limits or better * < 31st percentile is at least ? SD worse than population, which may be clinically relevant < 16th percentile is at least 1 SD worse than population and warrants attention Review of Systems Constitutional: (-) Weight Gain (-) Weight Loss (-) Fatigue Cardiovascular: (-) hx heart surgery (-) Pacemaker Respiratory: (-) Shortness of Breath (-) Cough (-) Snoring Gastrointestinal: (-) Incontinence (-) Diarrhea (-) Constipation (-) Nausea/Vomiting Endocrine: (-) Thyroid Disorder (+) Diabetes Hematologic: (-) Prolonged Bleeding (-) Easy Bruising Genitourinary: (-) Incontinence (-) Frequency (-) Urinary Urgency Skin: (-) Open sores/wound Neurologic: (-) Headache (-) Double Vision Psychiatric: (-) Depression (-) Anxiety (-) Personal History of Alcohol or Substance Abuse (+) Family History of Alcohol or Substance Abuse ///// Chief Complaint Patient presents with: Refill Request Back Pain Physical Examination LMP 09/01/2010 General:well appearing and alert Skin: Skin color, texture, turgor normal, no rashes or lesions HEENT: normal Cardiovascular: Regular, rate and rhythm Lungs: Normal respiratory rate and rhythm, unlabored on room air Musculoskeletal: Back: Tenderness on palpation over the lumbar spine. Tenderness over the bilateral lumbar paraspinal muscles Extremities: Normal exam of the extremities Neurological: Mental Status: alert Gait: Antalgic. Trigger points: lumbosacral spine muscles. Assessment Assessment : Roseann is a 59-year-old female presenting for evaluation of low back pain radiating down both legs. Roseann reports low back pain that radiates down both legs, extending all the way to her feet on the right leg. She also notes numbness in the right leg, which is painful to touch, though she denies any visible heller or bruising. She describes the pain as severe, particularly in the mornings, making it difficult to get up. To manage her symptoms, she has made a homemade rice bag to apply heat to her back. She remains active by walking daily to [employer] with her grandson to pickler helper her medications, though she anticipates this will become more difficult as the weather changes. Encounter Diagnosis ICD-10-CM 1. Degeneration of intervertebral disc of lumbar region with discogenic back pain M51.360 2. Spondylolisthesis of lumbar region M43.16 3. Radiculopathy, lumbar region M54.16 4. Spinal stenosis of lumbar region with neurogenic claudication M48.062 02/02/2023 PROMIS CAT Pain Interference PROMIS Pain Interference T-Score (range: 10 - 90) 66 (moderate) PROMIS Pain Interference Percentile 5 PROMIS Adult Short Form-Global Health Score (Mental) 28.4 (Poor) OARRS Report: Reviewed: The patient's OARRS report was reviewed and is consistent with the reported medication use. Plan Injection history was reviewed. Medication use and compliance were reviewed. 1. Continue medication management through the [facility] 2. The following approved medication requests have been transmitted electronically. Requested Prescriptions Signed Prescriptions Disp Refills HYDROcodone-acetaminophen (NORCO) 5-325 mg per tablet 28 tablet 0 Sig: Take 1-2 tablets by mouth every 6 hours as needed for pain for up to 7 days. 3. Interventional procedure options discussed. none 4. Encouraged regular home exercise program. 5) F/U in 3 months The level of medical decision making for this encounter was low level. I spent a total of 25 minutes (more content not included)... [facility] 03-03-2025 Note SARS-COV-2 (AGENT OF COVID-19) RNA: Not detected INFLUENZA A RNA: Not detected INFLUENZA B RNA: Not detected RESPIRATORY SYNCYTIAL VIRUS (RSV) RNA: Not detected [facility] Comment on above: Performed By: #### [id number] ####[facility] [id number] [place] [address] [place] 03-03-2025 Instructions Monica Chinchilla APRN.STAVE SAW OPERATOR - 03/03/2025 10:34 AM EDT 1. Viral URI with cough (J06.9) 2. Headache, unspecified headache type (R51.9) - Ongoing headache for several days, unresponsive to Tylenol; associated with cough and rhinorrhea. - COVID-19 test performed; will notify patient of results. - Toradol contraindicated due to decreased kidney function. - Continue Tylenol for headache management. 3. Rash (R21) - Erythema and fissuring at the perioral area. - Prescribed triamcinolone cream for topical application to affected areas. - You had a COVID-19 nasal swab today; we will call you with your test results. - Use the triamcinolone ( steroid ) cream on the corners of your lips as prescribed; the prescription has been sent to your pharmacy. - Continue taking Tylenol for your headaches as needed, since it has been effective. documented in this encounter [facility] 03-03-2025 Note HNO ID: [id number] Author: MONICA CHINCHILLA APRN.STAVE SAW OPERATOR Service: ? Author Type: Nurse Practitioner Type: Progress Notes Filed: 03/03/2025 10:34 Note Text: [facility] Viveros is a 59 year old female. Patient presents with: Mouth/Lip Problem: redness on outer edges of lips, headache and lightheadedness x 2 days Mouth/Lip Problem The patient is a 59-year-old female presenting with perioral erythema, cough and nasal congestion, lightheadedness, and headaches. Perioral Erythema: - Redness and cracks on the outer edges of the lips. - Painful upon examination. Headaches: - Worsening headaches, persistent for the past few days. - Taking Tylenol today. - Associated with lightheadedness. - Denies fever. URI Symptoms: - Cough and rhinorrhea. - Occasional otalgia in the right ear, with decreased hearing. Review of Systems Constitutional: (-) fever Head: (+) headache Ears/Nose/Mouth/Throat: (+) decreased hearing, (+) ear pain, (+) rhinorrhea, (+) lip pain, (+) lip fissures Respiratory: (+) cough Neurological: (+) lightheadedness Objective BP 122/70 Pulse 66 Temp 36.2 ?C (97.2 ?F) Resp 16 Wt 59.1 kg (130 lb 4.7 oz) LMP 09/01/2010 SpO2 95% BMI 23.83 kg/m? 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 08/31/2016 - Depression - Diabetes mellitus (HCC) 2010 No nephropathy, neuropathy, retinopathy - DJD (degenerative joint disease) of lumbar spine - Hyperlipidemia 2010 - Low back pain [id number] - Unspecified , without mention of complication, unspecified (HCC) 2 Miscarriage's PAST SURGICAL HISTORY Procedure Laterality Date - DELIVERY ONLY , low cervical, (2) - DILATION AND CURETTAGE DXAND/THER NONOBSTETRIC Dilation AND curettage x 2 - LIGATE FALLOPIAN TUBE 2001 - NEUROPLASTY AND/TRANSPOS MEDIAN NRV CARPAL TUNNE Bilateral 09/18/2016 - THYROID FINE NEEDLE ASPIRATION Right 07/07/2021 - THYROID FINE NEEDLE ASPIRATION 08/01/2021 - TONSILLECTOMY AND ADENOIDECTOMY ALLERGIES Bee Venom Protein (Honey Bee) MEDICATIONS - blood sugar diagnostic (BLOOD GLUCOSE TEST) test strip 1 strip two times a day. Test blood sugar(s) 2 times daily. Dx: Type 2 DM - Controlled E11.9 Insulin: No - atenolol (TENORMIN) 50 mg tablet Take 1 tablet by mouth once daily. - buPROPion XL (WELLBUTRIN XL) 150 mg 24 hr tablet Take 1 tablet by mouth once daily. - linaGLIPtin (TRADJENTA) 5 mg tab Take 1 tablet by mouth once daily. - albuterol HFA (PROVENTIL HFA, VENTOLIN HFA) 90 mcg/actuation inhaler Inhale 2 puffs as instructed every 6 hours as needed for wheezing/shortness of breath. - meclizine (ANTIVERT) 25 mg tab Take 1 tablet by mouth three times a day as needed. - methocarbamol (ROBAXIN-750) 750 mg tablet Take 1 tablet by mouth three times a day as needed. - Lancets 1 each two times a day. Use with blood glucose test once daily DX: E11.9 - insulin glargine (LANTUS SOLOSTAR U-100 INSULIN) 100 unit/mL (3 mL) Inject 12 Units subcutaneously every morning. - Blood-Glucose Meter 1 each once daily. DXE11.9 - nitroglycerin sublingual (NITROQUICK) 0.4 mg SL tablet DISSOLVE 1 (ONE) TABLET UNDER THE TONGUE NEEDED FOR CHEST PAIN. MAY REPEAT EVERY 5 MINUTES IF NEEDED; MAX OF 3 DOSES. IF NO RELIEF, COURTNEY - Insulin [place], Disposable, (PEN NEEDLE) 32 gauge x 5/32 Inject 1 Each subcutaneously every 24 hours. Give with each insulin administration. - aspirin, enteric coated (ASPIRIN, ENTERIC COATED) 81 mg EC tablet Take 1 tablet by mouth once daily. - isosorbide mononitrate ER (IMDUR) 30 mg 24 hr tablet Take 1 tablet by mouth once daily. Take w/ 60 mg tablet for total daily dose of 90 mg. - isosorbide mononitrate ER (IMDUR) 60 mg 24 hr tablet Take 1 tablet by mouth once daily. Take w/ 30 mg tablet for total daily dose of 90 mg. - famotidine (PEPCID) 20 mg tablet Take 1 tablet by mouth two times a day. - atorvastatin (LIPITOR) 80 mg tablet Take 1 tablet by mouth once daily. - calcium-cholecalciferol, D3, (OSCAL+D 250) 250 mg-3.125 mcg (125 unit) per tablet Take 1 tablet by mouth two times a day. - Cholecalciferol, Vitamin D3, 25 mcg (1,000 unit) cap Take 1 capsule by mouth once daily. - empagliflozin (JARDIANCE) 10 mg tablet Take 1 tablet by mouth daily with breakfast. - sertraline (ZOLOFT) 100 mg tablet Take 1 tablet by mouth once daily. - Blood Pressure Monitor Use as directed, Monitor and arm cuff. Dx: I25.119, N18.30, I.10 - triamcinolone (KENALOG) 0.025 % cream Apply to affected area two times a day. FAMILY HISTORY Problem Relation Age of Onset - Diabetes Mother - Heart Mother - Cataract Mother - Emphysema Father - Cancer Father - other (Kidney Failure) Father - Arthritis Paternal Aunt - Arthritis Paternal Grandmother Hands SOCIAL HISTORY[1] Physical Exam Vitals and (more content not included)... [facility] 03-03-2025 History of Present illness Narrative Images from the original note were not included. [facility] Joshua Roseann Viveros is a 59 year old female. Patient presents with: Mouth/Lip Problem: redness on outer edges of lips, headache and lightheadedness x 2 days Mouth/Lip Problem The patient is a 59-year-old female presenting with perioral erythema, cough and nasal congestion, lightheadedness, and headaches. Perioral Erythema: - Redness and cracks on the outer edges of the lips. - Painful upon examination. Headaches: - Worsening headaches, persistent for the past few days. - Taking Tylenol today. - Associated with lightheadedness. - Denies fever. URI Symptoms: - Cough and rhinorrhea. - Occasional otalgia in the right ear, with decreased hearing. 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 08/31/2016 Depression Diabetes mellitus (HCC) 2010 No nephropathy, neuropathy, retinopathy DJD (degenerative joint disease) of lumbar spine Hyperlipidemia 2011 Low back pain [id number] Unspecified , without mention of complication, unspecified (HCC) 2 Miscarriage's PAST SURGICAL HISTORY Procedure Laterality Date DELIVERY ONLY , low cervical, (2) DILATION & CURETTAGE DX&/THER NONOBSTETRIC Dilation & curettage x 2 LIGATE FALLOPIAN TUBE 2002 NEUROPLASTY &/TRANSPOS MEDIAN NRV CARPAL TUNNE Bilateral 09/18/2016 THYROID FINE NEEDLE ASPIRATION Right 07/07/2021 THYROID FINE NEEDLE ASPIRATION 08/01/2021 TONSILLECTOMY & ADENOIDECTOMY <AGE 12 ALLERGIES Bee Venom Protein (Honey Bee) MEDICATIONS blood sugar diagnostic (BLOOD GLUCOSE TEST) test strip 1 strip two times a day. Test blood sugar(s) 2 times daily. Dx: Type 2 DM - Controlled E11.9 Insulin: No atenolol (TENORMIN) 50 mg tablet Take 1 tablet by mouth once daily. buPROPion XL (WELLBUTRIN XL) 150 mg 24 hr tablet Take 1 tablet by mouth once daily. linaGLIPtin (TRADJENTA) 5 mg tab Take 1 tablet by mouth once daily. albuterol HFA (PROVENTIL HFA, VENTOLIN HFA) 90 mcg/actuation inhaler Inhale 2 puffs as instructed every 6 hours as needed for wheezing/shortness of breath. meclizine (ANTIVERT) 25 mg tab Take 1 tablet by mouth three times a day as needed. methocarbamol (ROBAXIN-750) 750 mg tablet Take 1 tablet by mouth three times a day as needed. Lancets 1 each two times a day. Use with blood glucose test once daily DX: E11.9 insulin glargine (LANTUS SOLOSTAR U-100 INSULIN) 100 unit/mL (3 mL) Inject 12 Units subcutaneously every morning. Blood-Glucose Meter 1 each once daily. DXE11.9 nitroglycerin sublingual (NITROQUICK) 0.4 mg SL tablet DISSOLVE 1 (ONE) TABLET UNDER THE TONGUE NEEDED FOR CHEST PAIN. MAY REPEAT EVERY 5 MINUTES IF NEEDED; MAX OF 3 DOSES. IF NO RELIEF, COURTNEY Insulin [place], Disposable, (PEN NEEDLE) 32 gauge x 5/32 Inject 1 Each subcutaneously every 24 hours. Give with each insulin administration. aspirin, enteric coated (ASPIRIN, ENTERIC COATED) 81 mg EC tablet Take 1 tablet by mouth once daily. isosorbide mononitrate ER (IMDUR) 30 mg 24 hr tablet Take 1 tablet by mouth once daily. Take w/ 60 mg tablet for total daily dose of 90 mg. isosorbide mononitrate ER (IMDUR) 60 mg 24 hr tablet Take 1 tablet by mouth once daily. Take w/ 30 mg tablet for total daily dose of 90 mg. famotidine (PEPCID) 20 mg tablet Take 1 tablet by mouth two times a day. atorvastatin (LIPITOR) 80 mg tablet Take 1 tablet by mouth once daily. calcium-cholecalciferol, D3, (OSCAL+D 250) 250 mg-3.125 mcg (125 unit) per tablet Take 1 tablet by mouth two times a day. Cholecalciferol, Vitamin D3, 25 mcg (1,000 unit) cap Take 1 capsule by mouth once daily. empagliflozin (JARDIANCE) 10 mg tablet Take 1 tablet by mouth daily with breakfast. sertraline (ZOLOFT) 100 mg tablet Take 1 tablet by mouth once daily. Blood Pressure Monitor Use as directed, Monitor and arm cuff. Dx: I25.119, N18.30, I.10 triamcinolone (KENALOG) 0.025 % cream Apply to affected area two times a day. FAMILY HISTORY Problem Relation Age of Onset Diabetes Mother Heart Mother Cataract Mother Emphysema Father Cancer Father other (Kidney Failure) Father Arthritis Paternal Aunt Arthritis Paternal Grandmother Hands SOCIAL HISTORY[1] Physical Exam Vitals and nursing note reviewed. Constitutional: General: She is not in acute distress. Appearance: Normal appearance. She is not ill-appearing. HENT: Right Ear: Tympanic membrane, ear canal and external ear normal. Left Ear: Tympanic membrane, ear canal and external ear normal. Nose: Nose normal. Mouth/Throat: Mouth: Mucous membranes are moist. Pharynx: Oropharynx is clear. No oropharyngeal exudate or posterior oropharyngeal erythema. Cardiovascular: Rate and Rhythm: Normal rate and regular rhythm. Heart sounds: Normal heart sounds. Pulmonary: Effort: Pulmonary effort is normal. No respiratory distress. Breath sounds: Normal breath sounds. No wheezing or rales. Lymphadenopathy: Cervical: No cervical adenopathy. Skin: General: Skin is warm and dry. Findings: No erythema or rash. Neurological: Mental Status: She is alert. { 1. Viral URI with cough (J06.9) 2. Headache, unspecified headache type (R51.9) - Ongoing headache for several days, unresponsive to Tylenol; associated with cough and rhinorrhea. - COVID-19 test performed; will notify patient of results. - Toradol contraindicated due to decreased kidney function. - Continue Tylenol for headache management. 3. Rash (R21) - Erythema and fissuring at the perioral area. - Prescribed triamcinolone cream for topical application to affected areas. - Follow-up with your PCP in 3-5 days if symptoms have not improved or sooner if symptoms worsen - Discussed red flags and need for immediate medical evaluation if any occur. - Discussed supportive care treatment with fluids, rest and analgesia. - Discussed expected course of illness Monica Chinchilla APRN.STAVE SAW OPERATOR and Recording using [employer] software for draft documentation of the visit was discussed with the patient/authorized technical sales representative; all questions welcomed and answered. Patient/authorized technical sales representative agreed to proceed Disposition The patient was discharged. OTC Medications were advised: tylenol Procedures [1] Social History Tobacco Use Smoking status: Former Current packs/day: 0.00 Average packs/day: 0.3 packs/day for 20.0 years (6.0 ttl pk-yrs) Types: Cigarettes Start date: 03/24/2003 Quit date: 03/24/2023 Years since quittin.9 Passive exposure: Past Smokeless tobacco: Never Vaping Use Vaping status: current everyday user Substances: Nicotine, Flavoring Devices: Disposable Substance Use Topics Alcohol use: Not Currently Comment: Quit 2001 Drug use: Not Currently Types: Marijuana documented in this encounter [facility] 02-28-2025 Telephone encounter Note Insurance will only cover 1 time daily with one injections. Prescription revised. Sonja Verma MA [facility] 02-28-2025 Miscellaneous Notes Insurance will only cover 1 time daily with one injections. Prescription revised. Sonja Verma MA -Patients states won't cover her test strips. Do we have any way of assisting the patient? She did state that the script has recently changed. Please Advise documented in this encounter [facility] 02-27-2025 Telephone encounter Note -Patients states won't cover her test strips. Do we have any way of assisting the patient? She did state that the script has recently changed. Please Advise [facility] 02-22-2025 Telephone encounter Note Patient called. Verified name and date of . States she cannot get test strips due to insurance coverage as Dr. Anton increased to check blood sugars twice daily. [facility]. Requested Prescriptions Pending Prescriptions Disp Refills blood sugar diagnostic (BLOOD GLUCOSE TEST) test strip 400 strip Si strip two times a day. Test blood sugar(s) 2 times daily. Dx: Type 2 DM - Controlled E11.9 Insulin: No Please review and advise. Sabra Abebe LPN [facility] 02-22-2025 Miscellaneous Notes Patient called. Verified name and date of . States she cannot get test strips due to insurance coverage as Dr. Anton increased to check blood sugars twice daily. Preferred [facility]. Requested Prescriptions Pending Prescriptions Disp Refills blood sugar diagnostic (BLOOD GLUCOSE TEST) test strip 400 strip Si strip two times a day. Test blood sugar(s) 2 times daily. Dx: Type 2 DM - Controlled E11.9 Insulin: No Please review and advise. Sabra Abebe LPN documented in this encounter [facility] 02-15-2025 Telephone encounter Note Prescription Refill Information The patient has been identified by name and date of : Yes Caregiver verified no other encounters exist for this prescription request: Yes Caregiver confirmed with patient/requestor that no other refills are due, in the near future, with this provider at this time: Yes The last office visit in the department: 12/18/24 Does the patient have a future office visit with this provider/department: Yes 02/20/25 Requested Prescriptions Pending Prescriptions Disp Refills blood sugar diagnostic (BLOOD GLUCOSE TEST) test strip 50 strip 11 Sig: Test blood sugar(s) 1 times daily. Dx: Type 2 DM - Controlled E11.9 Insulin: No Traci Meier February 15, 2025 2:39 PM [facility] 02-15-2025 Miscellaneous Notes Prescription Refill Information The patient has been identified by name and date of : Yes Caregiver verified no other encounters exist for this prescription request: Yes Caregiver confirmed with patient/requestor that no other refills are due, in the near future, with this provider at this time: Yes The last office visit in the department: 12/18/24 Does the patient have a future office visit with this provider/department: Yes 02/20/25 Requested Prescriptions Pending Prescriptions Disp Refills blood sugar diagnostic (BLOOD GLUCOSE TEST) test strip 50 strip 11 Sig: Test blood sugar(s) 1 times daily. Dx: Type 2 DM - Controlled E11.9 Insulin: Dianelys Meier February 15, 2025 2:39 PM documented in this encounter [facility] 02-15-2025 Telephone encounter Note The patient has been identified by name and date of : Yes Caregiver verified no other encounters exist for this prescription request: Yes Caregiver confirmed with patient/requestor that no other refills are due, in the near future, with this provider at this time: Yes The last office visit in the department: 08/30/2024 Does the patient have a future office visit with this provider/department: No Visit date not found Requested Prescriptions Pending Prescriptions Disp Refills atenolol (TENORMIN) 50 mg tablet 90 tablet 3 Sig: Take 1 tablet by mouth once daily. buPROPion XL (WELLBUTRIN XL) 150 mg 24 hr tablet 90 tablet 3 Sig: Take 1 tablet by mouth once daily. linaGLIPtin (TRADJENTA) 5 mg tab 90 tablet 3 Sig: Take 1 tablet by mouth once daily. Davian Wright RN February 15, 2025 2:36 PM [facility] 02-15-2025 Miscellaneous Notes The patient has been identified by name and date of : Yes Caregiver verified no other encounters exist for this prescription request: Yes Caregiver confirmed with patient/requestor that no other refills are due, in the near future, with this provider at this time: Yes The last office visit in the department: 08/30/2024 Does the patient have a future office visit with this provider/department: No Visit date not found Requested Prescriptions Pending Prescriptions Disp Refills atenolol (TENORMIN) 50 mg tablet 90 tablet 3 Sig: Take 1 tablet by mouth once daily. buPROPion XL (WELLBUTRIN XL) 150 mg 24 hr tablet 90 tablet 3 Sig: Take 1 tablet by mouth once daily. linaGLIPtin (TRADJENTA) 5 mg tab 90 tablet 3 Sig: Take 1 tablet by mouth once daily. Davian Wright RN February 15, 2025 2:36 PM documented in this encounter [facility] 01-18-2025 Note HNO ID: [id number] Author: SILVIO COOK, ? Service: ? Author Type: Physician Type: Progress Notes Filed: 01/18/2025 22:16 Note Text: Subjective Roseann Viveros is a 59-year-old female with a history of diabetes mellitus, presenting for follow-up of onychomycosis. Roseann was last seen on 09/18/2024 for thickened toenails and underwent a diabetic foot examination. A fungal culture was performed, revealing many septate hyphae on the fungal smear, rare Trichophyton species, and one colony of Dermatocus mold. Roseann reports that the thickened toenails are bothersome at times and has been managing them by keeping them trimmed. She also notes involvement of her fingernails, with one nail reportedly about to fall off. Roseann denies any underlying liver disease or impairment and does not consume alcohol. She is currently on Lipitor and calcium, and occasionally takes Pepcid. Her most recent HbA1c was 10.0% on 08/02/2024, and her blood glucose level this morning was 195 mg/dL. Liver function tests from January 2024 showed normal results: AST 14 U/L, ALT 17 U/L, and alkaline phosphatase 72 U/L. Skin: (+) thickened toenails, (+) thickened fingernails, (+) loose fingernail PAST MEDICAL HISTORY Diagnosis Date Anxiety 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 08/31/2016 Depression Diabetes mellitus (HCC) 2010 No nephropathy, neuropathy, retinopathy DJD (degenerative joint disease) of lumbar spine Hyperlipidemia 2011 Low back pain [id number] Unspecified , without mention of complication, unspecified (HCC) 2 Miscarriage's Current Outpatient Medications Medication Sig Dispense Refill itraconazole (SPORANOX PULSEPAK) 100 mg capsule Take 2 capsules by mouth two times a day for 7 days. 28 capsule 3 albuterol HFA (PROVENTIL HFA, VENTOLIN HFA) 90 mcg/actuation inhaler Inhale 2 puffs as instructed every 6 hours as needed for wheezing/shortness of breath. 18 g 1 meclizine (ANTIVERT) 25 mg tab Take 1 tablet by mouth three times a day as needed. 90 tablet 1 methocarbamol (ROBAXIN-750) 750 mg tablet Take 1 tablet by mouth three times a day as needed. 90 tablet 2 Lancets 1 each two times a day. Use with blood glucose test once daily DX: E11.9 60 each 2 insulin glargine (LANTUS SOLOSTAR U-100 INSULIN) 100 unit/mL (3 mL) Inject 12 Units subcutaneously every morning. (Patient taking differently: Inject 15 Units subcutaneously every morning.) 12 mL 0 blood sugar diagnostic (BLOOD GLUCOSE TEST) test strip Test blood sugar(s) 1 times daily. Dx: Type 2 DM - Controlled E11.9 Insulin: No 50 strip 11 Blood-Glucose Meter 1 each once daily. DXE11.9 1 each 0 nitroglycerin sublingual (NITROQUICK) 0.4 mg SL tablet DISSOLVE 1 (ONE) TABLET UNDER THE TONGUE NEEDED FOR CHEST PAIN. MAY REPEAT EVERY 5 MINUTES IF NEEDED; MAX OF 3 DOSES. IF NO RELIEF, COURTNEY 25 tablet 3 Insulin [place], Disposable, (PEN NEEDLE) 32 gauge x 5/32 Inject 1 Each subcutaneously every 24 hours. Give with each insulin administration. 100 Each 3 blood sugar diagnostic (TRUE METRIX GLUCOSE TEST STRIP) test strip testing once daily DX E11.9 Insulin No 200 Strip 2 aspirin, enteric coated (ASPIRIN, ENTERIC COATED) 81 mg EC tablet Take 1 tablet by mouth once daily. 90 tablet 3 isosorbide mononitrate ER (IMDUR) 30 mg 24 hr tablet Take 1 tablet by mouth once daily. Take w/ 60 mg tablet for total daily dose of 90 mg. 90 tablet 3 isosorbide mononitrate ER (IMDUR) 60 mg 24 hr tablet Take 1 tablet by mouth once daily. Take w/ 30 mg tablet for total daily dose of 90 mg. 90 tablet 3 famotidine (PEPCID) 20 mg tablet Take 1 tablet by mouth two times a day. 180 tablet 3 atorvastatin (LIPITOR) 80 mg tablet Take 1 tablet by mouth once daily. 90 tablet 3 calcium-cholecalciferol, D3, (OSCAL+D 250) 250 mg-3.125 mcg (125 unit) per tablet Take 1 tablet by mouth two times a day. 60 tablet 11 Cholecalciferol, Vitamin D3, 25 mcg (1,000 unit) cap Take 1 capsule by mouth once daily. 30 capsule 11 empagliflozin (JARDIANCE) 10 mg tablet Take 1 tablet by mouth daily with breakfast. 90 tablet 3 sertraline (ZOLOFT) 100 mg tablet Take 1 tablet by mouth once daily. 90 tablet 3 atenolol (TENORMIN) 50 mg tablet Take 1 tablet by mouth once daily. 90 tablet 3 linaGLIPtin (TRADJENTA) 5 mg tab Take 1 tablet by mouth once daily. 90 tablet 3 buPROPion XL (WELLBUTRIN XL) 150 mg 24 hr tablet Take 1 tablet by mouth once daily. 90 tablet 3 Blood Pressure Monitor Use as directed, Monitor and arm cuff. Dx: I25.119, N18.30, I.10 1 Kit 0 No current facility-administered medications for this visit. Objective Last menstrual period 09/01/2010. - Cardiovascular: Dorsalis pedis and posterior tibial pulses palpable bilaterally; capillary refill time <5 seconds. - Skin: Warm temperature from proximal to distal; well-hydrated; slight dryness noted along the medial instep. - Musculoskeletal: - Bilateral (more content not included)... [facility] 01-18-2025 History of Present illness Narrative Subjective Roseann Viveros is a 59-year-old female with a history of diabetes mellitus, presenting for follow-up of onychomycosis. Roseann was last seen on 09/18/2024 for thickened toenails and underwent a diabetic foot examination. A fungal culture was performed, revealing many septate hyphae on the fungal smear, rare Trichophyton species, and one colony of Dermatocus mold. Roseann reports that the thickened toenails are bothersome at times and has been managing them by keeping them trimmed. She also notes involvement of her fingernails, with one nail reportedly about to fall off. Roseann denies any underlying liver disease or impairment and does not consume alcohol. She is currently on Lipitor and calcium, and occasionally takes Pepcid. Her most recent HbA1c was 10.0% on 08/02/2024, and her blood glucose level this morning was 195 mg/dL. Liver function tests from January 2024 showed normal results: AST 14 U/L, ALT 17 U/L, and alkaline phosphatase 72 U/L. Skin: (+) thickened toenails, (+) thickened fingernails, (+) loose fingernail PAST MEDICAL HISTORY Diagnosis Date Anxiety 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 08/31/2016 Depression Diabetes mellitus (HCC) 2010 No nephropathy, neuropathy, retinopathy DJD (degenerative joint disease) of lumbar spine Hyperlipidemia 2011 Low back pain [id number] Unspecified , without mention of complication, unspecified (HCC) 2 Miscarriage's Current Outpatient Medications Medication Sig Dispense Refill itraconazole (SPORANOX PULSEPAK) 100 mg capsule Take 2 capsules by mouth two times a day for 7 days. 28 capsule 3 albuterol HFA (PROVENTIL HFA, VENTOLIN HFA) 90 mcg/actuation inhaler Inhale 2 puffs as instructed every 6 hours as needed for wheezing/shortness of breath. 18 g 1 meclizine (ANTIVERT) 25 mg tab Take 1 tablet by mouth three times a day as needed. 90 tablet 1 methocarbamol (ROBAXIN-750) 750 mg tablet Take 1 tablet by mouth three times a day as needed. 90 tablet 2 Lancets 1 each two times a day. Use with blood glucose test once daily DX: E11.9 60 each 2 insulin glargine (LANTUS SOLOSTAR U-100 INSULIN) 100 unit/mL (3 mL) Inject 12 Units subcutaneously every morning. (Patient taking differently: Inject 15 Units subcutaneously every morning.) 12 mL 0 blood sugar diagnostic (BLOOD GLUCOSE TEST) test strip Test blood sugar(s) 1 times daily. Dx: Type 2 DM - Controlled E11.9 Insulin: No 50 strip 11 Blood-Glucose Meter 1 each once daily. DXE11.9 1 each 0 nitroglycerin sublingual (NITROQUICK) 0.4 mg SL tablet DISSOLVE 1 (ONE) TABLET UNDER THE TONGUE NEEDED FOR CHEST PAIN. MAY REPEAT EVERY 5 MINUTES IF NEEDED; MAX OF 3 DOSES. IF NO RELIEF, COURTNEY 25 tablet 3 Insulin [place], Disposable, (PEN NEEDLE) 32 gauge x 5/32 Inject 1 Each subcutaneously every 24 hours. Give with each insulin administration. 100 Each 3 blood sugar diagnostic (TRUE METRIX GLUCOSE TEST STRIP) test strip testing once daily DX E11.9 Insulin No 200 Strip 2 aspirin, enteric coated (ASPIRIN, ENTERIC COATED) 81 mg EC tablet Take 1 tablet by mouth once daily. 90 tablet 3 isosorbide mononitrate ER (IMDUR) 30 mg 24 hr tablet Take 1 tablet by mouth once daily. Take w/ 60 mg tablet for total daily dose of 90 mg. 90 tablet 3 isosorbide mononitrate ER (IMDUR) 60 mg 24 hr tablet Take 1 tablet by mouth once daily. Take w/ 30 mg tablet for total daily dose of 90 mg. 90 tablet 3 famotidine (PEPCID) 20 mg tablet Take 1 tablet by mouth two times a day. 180 tablet 3 atorvastatin (LIPITOR) 80 mg tablet Take 1 tablet by mouth once daily. 90 tablet 3 calcium-cholecalciferol, D3, (OSCAL+D 250) 250 mg-3.125 mcg (125 unit) per tablet Take 1 tablet by mouth two times a day. 60 tablet 11 Cholecalciferol, Vitamin D3, 25 mcg (1,000 unit) cap Take 1 capsule by mouth once daily. 30 capsule 11 empagliflozin (JARDIANCE) 10 mg tablet Take 1 tablet by mouth daily with breakfast. 90 tablet 3 sertraline (ZOLOFT) 100 mg tablet Take 1 tablet by mouth once daily. 90 tablet 3 atenolol (TENORMIN) 50 mg tablet Take 1 tablet by mouth once daily. 90 tablet 3 linaGLIPtin (TRADJENTA) 5 mg tab Take 1 tablet by mouth once daily. 90 tablet 3 buPROPion XL (WELLBUTRIN XL) 150 mg 24 hr tablet Take 1 tablet by mouth once daily. 90 tablet 3 Blood Pressure Monitor Use as directed, Monitor and arm cuff. Dx: I25.119, N18.30, I.10 1 Kit 0 No current facility-administered medications for this visit. Objective Last menstrual period 09/01/2010. - Cardiovascular: Dorsalis pedis and posterior tibial pulses palpable bilaterally; capillary refill time <5 seconds. - Skin: Warm temperature from proximal to distal; well-hydrated; slight dryness noted along the medial instep. - Musculoskeletal: - Bilateral Feet: - Manual muscle testin/5 for dorsiflexion, plantar flexion, inversion, and eversion. - Neurological: Sensory examination intact to light touch and vibration bilaterally. - Dermatological: Toenails 1-5 bilaterally are significantly thickened, discolored, and dystrophic. Labs: (09/18/2024) - Fungal Smear: Many septate hyphae - Fungal Culture: Rare Trichophyton species, 1 colony of Dermatocus mold (08/02) - A1c: 10.0 (January 2024) - AST: 14 U/L - ALT: 17 U/L - Alkaline Phosphatase: 72 U/L (normal) Assessment & Plan 1. Onychomycosis (B35.1) Fungal culture from September 18, 2024, showed rare Trichophyton species and 1 colony of Dermatocus mold. Multiple toenails (1-5 bilaterally) are significantly thick, discolored, and dystrophic. Fingernails also appear affected. - discussed various options for nail deformity not limited to topical medication vs oral medication vs laser vs toenails removal - discussed the presence of mold. lamisil will not be as effective against mold. sporanox more likely to be successful. - Initiated Sporanox (itraconazole) 2 capsules PO BID for 7 days, then stop; repeat monthly for 4 months. - Ordered liver function tests to be done today, and then monthly for 3 months. - Educated patient on potential side effects of Sporanox, including upset stomach, rash, yellowing of skin or eyes, and increased muscle soreness due to interaction with Lipitor. - Advised patient to discontinue Sporanox if any severe side effects occur. - Informed patient that improvement may not be noticeable until 6-9 months. - Discussed alternative treatments, including laser therapy and nail removal, but deferred nail removal until better glycemic control is achieved (A1c < 8). 2. Type 2 diabetes mellitus with diabetic peripheral angiopathy without gangrene, with long-term current use of insulin (HCC) (E11.51) No evidence of vascular disease on exam; good blood flow and sensation intact. A1c was 10.0 on August 02. Patient is working on improving glycemic control. - Continue current diabetes management. - Advised patient to avoid barefoot walking, wear supportive shoes, and inspect feet regularly. - Follow-up on glycemic control and A1c levels. Recording using [employer] software for draft documentation of the visit was discussed with the patient/authorized technical sales representative; all questions welcomed and answered. Patient/authorized technical sales representative agreed to proceed Silvio Cook DPM Patient presents with: Left Foot - New, Diabetic Foot Care, Nail Fungus, Derm Problem Right Foot - New, Diabetic Foot Care, Nail Fungus, Derm Problem Discuss August 2024 nail culture results and tx plan. Patient reports home blood glucose reading at 195 mg/dL this am . Steve Hidalgo MA documented in this encounter [facility] 01-18-2025 Instructions Silvio Cook - 01/18/2025 2:33 PM EDT We discussed your thickened toenails and fungal infection: - Your fungal culture showed rare Trichophyton species and one colony of Dermatocus mold, which are likely contributing to the thickened appearance of your toenails. These findings are not harmful to your overall health but can affect the nails' appearance and structure. - You have multiple toenails affected (five on each foot) and some fingernails may also be involved, though this was not confirmed. - We discussed treatment options, and you decided to proceed with oral antifungal medication (Sporanox). - Take two capsules by mouth twice daily for 7 days, then stop. Repeat this cycle monthly for four months (7 days on, then stop for the rest of the month). - I have sent this prescription to [facility] in [place] with three refills. - You will not notice improvement until 6 to 9 months as the nails grow out. Continue trimming the nails during this time. - Potential side effects include upset stomach, rash, yellowing of the skin or eyes, or muscle soreness (due to interaction with Lipitor). If you experience any of these, stop the medication and contact me. - Pepcid may slightly reduce the effectiveness of the antifungal medication, but this is not a significant concern. - I ordered blood work to monitor your liver function before, during, and after treatment. Please complete the first set of labs today, and then again in 1, 2, and 3 months. I will notify you when the results are available, and you can start the medication once I confirm your blood work is normal. We discussed your diabetes and foot care: - Your A1c was 10.0 in July, and your blood sugar this morning was 195. We are working on improving your blood sugar control. - Avoid walking barefoot, wear good supportive shoes, and inspect your feet daily for any changes or injuries. - Continue wearing wider shoes to accommodate your bunion. If you have any questions or concerns, or if you experience any side effects from the medication, please contact me. documented in this encounter [facility] 01-18-2025 Note HNO ID: [id number] Author: STEVE HIDALGO MA Service: ? Author Type: [employer] Mach[employer] Supervisor Type: Progress Notes Filed: 01/18/2025 22:16 Note Text: Patient presents with: Left Foot - New, Diabetic Foot Care, Nail Fungus, Derm Problem Right Foot - New, Diabetic Foot Care, Nail Fungus, Derm Problem Discuss August 2024 nail culture results and tx plan. Patient reports home blood glucose reading at 195 mg/dL this am . Steve Hidalgo MA [facility] 12-26-2024 Telephone encounter Note The patient has been identified by name and date of : Yes Caregiver verified no other encounters exist for this prescription request: Yes Caregiver confirmed with patient/requestor that no other refills are due, in the near future, with this provider at this time: Yes The last office visit in the department: 08/30/2024 Does the patient have a future office visit with this provider/department: Appt not made. Pt was not sure when to Follow-up. States she will get ordered labs completed stefano. Requested Prescriptions Pending Prescriptions Disp Refills albuterol HFA (PROVENTIL HFA, VENTOLIN HFA) 90 mcg/actuation inhaler 18 g 1 Sig: Inhale 2 puffs as instructed every 6 hours as needed for wheezing/shortness of breath. meclizine (ANTIVERT) 25 mg tab 90 tablet 1 Sig: Take 1 tablet by mouth three times a day as needed. Marianela De La Torre RN [facility] 12-26-2024 Miscellaneous Notes The patient has been identified by name and date of : Yes Caregiver verified no other encounters exist for this prescription request: Yes Caregiver confirmed with patient/requestor that no other refills are due, in the near future, with this provider at this time: Yes The last office visit in the department: 08/30/2024 Does the patient have a future office visit with this provider/department: Appt not made. Pt was not sure when to Follow-up. States she will get ordered labs completed stefano. Requested Prescriptions Pending Prescriptions Disp Refills albuterol HFA (PROVENTIL HFA, VENTOLIN HFA) 90 mcg/actuation inhaler 18 g 1 Sig: Inhale 2 puffs as instructed every 6 hours as needed for wheezing/shortness of breath. meclizine (ANTIVERT) 25 mg tab 90 tablet 1 Sig: Take 1 tablet by mouth three times a day as needed. Marianela De La Torre RN documented in this encounter [facility] 12-20-2024 Note HNO ID: [id number] Author: VINCENT VALLE MD Service: ? Author Type: Physician Type: Progress Notes Filed: 12/20/2024 15:36 Note Text: [facility] (ESTABLISHED PATIENT) Date: December 20, 2024 - 3:02 PM Chief Complaint: Chronic back pain __ SUBJECTIVE: Ms. Viveros presents to the [facility] for a follow up appointment regarding acute flareup of chronic back pain. She states that since the last visit symptoms have been persistent and with exacerbation. She denies any recent injuries or trauma. She has had episodic flareup of back pain.. The pain is located in the bilateral lumbar region and gluteal region and occasionally radiates to bilateral lower extremities. // The pain is described as aching and sharp and is rated as 7 on a scale of 0-10. The patient Reports cramping in legs. Symptoms interfere with physical activity. The pain is exacerbated by unable to pinpoint exacerbating factors/positions. The pain is mitigated by medications and ice . She is currently receiving medications through the [facility]. She is not having difficulty with her PMC medications. The medications are effective. REVIEW OF SYSTEMS: Constitutional: (-) Fever (-) Night Sweats (-) Weight Gain (-) Weight Loss (-) Fatigue Cardiovascular: (-) Chest Pain (-) Palpitations (+) Lightheadedness (-) Swelling of Ankles (-) Hx Heart Surgery Respiratory: (+) Shortness of Breath (-) Cough (-) Wheezing (-) Snoring Gastrointestinal: (-) Incontinence (-) Abdominal Pain (-) Diarrhea (+) Constipation (-) Nausea/Vomiting (-) Heart Burn Endocrine: (-) Thyroid Disorder (+) Diabetes Hematologic: (-) Prolonged Bleeding (+) Easy Bruising Genitourinary: (-) Incontinence (-) Frequency (-) Urinary Urgency Skin: (+) Rashes (-) Itching (-) Other Lesions Neurologic: (+) Headache (-) Double Vision (-) Confusion (-) Paralysis Psychiatric: (+) Depression (+) Anxiety (-) Delusions (-) Hallucinations (-) Personal History of Alcohol or Substance Abuse (+) Family History of Alcohol or Substance Abuse __ PAST MEDICAL HISTORY Diagnosis Date Anxiety 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 08/31/2016 Depression Diabetes mellitus (HCC) 2010 No nephropathy, neuropathy, retinopathy DJD (degenerative joint disease) of lumbar spine Hyperlipidemia 2011 Low back pain [id number] Unspecified , without mention of complication, unspecified (HCC) 2 Miscarriage's PAST SURGICAL HISTORY Procedure Laterality Date DELIVERY ONLY , low cervical, (2) DILATION AND CURETTAGE DXAND/THER NONOBSTETRIC Dilation AND curettage x 2 LIGATE FALLOPIAN TUBE 2002 NEUROPLASTY AND/TRANSPOS MEDIAN NRV CARPAL TUNNE Bilateral 09/18/2016 THYROID FINE NEEDLE ASPIRATION Right 07/07/2021 THYROID FINE NEEDLE ASPIRATION 08/01/2021 TONSILLECTOMY AND ADENOIDECTOMY ALLERGIES Allergen Reactions Bee Venom Protein (* Swelling Current Outpatient Medications Medication Sig Lancets 1 each two times a day. Use with blood glucose test once daily DX: E11.9 insulin glargine (LANTUS SOLOSTAR U-100 INSULIN) 100 unit/mL (3 mL) Inject 12 Units subcutaneously every morning. (Patient taking differently: Inject 15 Units subcutaneously every morning.) blood sugar diagnostic (BLOOD GLUCOSE TEST) test strip Test blood sugar(s) 1 times daily. Dx: Type 2 DM - Controlled E11.9 Insulin: No Blood-Glucose Meter 1 each once daily. DXE11.9 methocarbamol (ROBAXIN-750) 750 mg tablet Take 1 tablet by mouth three times a day as needed. nitroglycerin sublingual (NITROQUICK) 0.4 mg SL tablet DISSOLVE 1 (ONE) TABLET UNDER THE TONGUE NEEDED FOR CHEST PAIN. MAY REPEAT EVERY 5 MINUTES IF NEEDED; MAX OF 3 DOSES. IF NO RELIEF, COURTNEY Insulin Selma, Disposable, (PEN NEEDLE) 32 gauge x 5/32 Inject 1 Each subcutaneously every 24 hours. Give with each insulin administration. blood sugar diagnostic (TRUE METRIX GLUCOSE TEST STRIP) test strip testing once daily DX E11.9 Insulin No albuterol HFA (PROVENTIL HFA, VENTOLIN HFA) 90 mcg/actuation inhaler Inhale 2 Puffs as instructed every 6 hours as needed for wheezing/shortness of breath. aspirin, enteric coated (ASPIRIN, ENTERIC COATED) 81 mg EC tablet Take 1 tablet by mouth once daily. isosorbide mononitrate ER (IMDUR) 30 mg 24 hr tablet Take 1 tablet by mouth once daily. Take w/ 60 mg tablet for total daily dose of 90 mg. isosorbide mononitrate ER (IMDUR) 60 mg 24 hr tablet Take 1 tablet by mouth once daily. Take w/ 30 mg tablet for total daily dose of 90 mg. meclizine (ANTIVERT) 25 mg tab Take 1 tablet by mouth three times a day as needed. famotidine (PEPCID) 20 mg tablet Take 1 tablet by mouth two times a day. joel (more content not included)... [facility] 12-20-2024 History of Present illness Narrative [facility] (ESTABLISHED PATIENT) Date: December 20, 2024 - 3:02 PM Chief Complaint: Chronic back pain __ SUBJECTIVE: Ms. Viveros presents to the [facility] for a follow up appointment regarding acute flareup of chronic back pain. She states that since the last visit symptoms have been persistent and with exacerbation. She denies any recent injuries or trauma. She has had episodic flareup of back pain.. The pain is located in the bilateral lumbar region and gluteal region and occasionally radiates to bilateral lower extremities. // The pain is described as aching and sharp and is rated as 7 on a scale of 0-10. The patient Reports cramping in legs. Symptoms interfere with physical activity. The pain is exacerbated by unable to pinpoint exacerbating factors/positions. The pain is mitigated by medications and ice . She is currently receiving medications through the [facility]. She is not having difficulty with her PMC medications. The medications are effective. REVIEW OF SYSTEMS: Constitutional: (-) Fever (-) Night Sweats (-) Weight Gain (-) Weight Loss (-) Fatigue Cardiovascular: (-) Chest Pain (-) Palpitations (+) Lightheadedness (-) Swelling of Ankles (-) Hx Heart Surgery Respiratory: (+) Shortness of Breath (-) Cough (-) Wheezing (-) Snoring Gastrointestinal: (-) Incontinence (-) Abdominal Pain (-) Diarrhea (+) Constipation (-) Nausea/Vomiting (-) Heart Burn Endocrine: (-) Thyroid Disorder (+) Diabetes Hematologic: (-) Prolonged Bleeding (+) Easy Bruising Genitourinary: (-) Incontinence (-) Frequency (-) Urinary Urgency Skin: (+) Rashes (-) Itching (-) Other Lesions Neurologic: (+) Headache (-) Double Vision (-) Confusion (-) Paralysis Psychiatric: (+) Depression (+) Anxiety (-) Delusions (-) Hallucinations (-) Personal History of Alcohol or Substance Abuse (+) Family History of Alcohol or Substance Abuse __ PAST MEDICAL HISTORY Diagnosis Date Anxiety 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 08/31/2016 Depression Diabetes mellitus (HCC) 2010 No nephropathy, neuropathy, retinopathy DJD (degenerative joint disease) of lumbar spine Hyperlipidemia 2011 Low back pain [id number] Unspecified , without mention of complication, unspecified (HCC) 2 Miscarriage's PAST SURGICAL HISTORY Procedure Laterality Date DELIVERY ONLY , low cervical, (2) DILATION & CURETTAGE DX&/THER NONOBSTETRIC Dilation & curettage x 2 LIGATE FALLOPIAN TUBE 2001 NEUROPLASTY &/TRANSPOS MEDIAN NRV CARPAL TUNNE Bilateral 09/18/2016 THYROID FINE NEEDLE ASPIRATION Right 07/07/2021 THYROID FINE NEEDLE ASPIRATION 08/01/2021 TONSILLECTOMY & ADENOIDECTOMY <AGE 12 ALLERGIES Allergen Reactions Bee Venom Protein (* Swelling Current Outpatient Medications Medication Sig Lancets 1 each two times a day. Use with blood glucose test once daily DX: E11.9 insulin glargine (LANTUS SOLOSTAR U-100 INSULIN) 100 unit/mL (3 mL) Inject 12 Units subcutaneously every morning. (Patient taking differently: Inject 15 Units subcutaneously every morning.) blood sugar diagnostic (BLOOD GLUCOSE TEST) test strip Test blood sugar(s) 1 times daily. Dx: Type 2 DM - Controlled E11.9 Insulin: No Blood-Glucose Meter 1 each once daily. DXE11.9 methocarbamol (ROBAXIN-750) 750 mg tablet Take 1 tablet by mouth three times a day as needed. nitroglycerin sublingual (NITROQUICK) 0.4 mg SL tablet DISSOLVE 1 (ONE) TABLET UNDER THE TONGUE NEEDED FOR CHEST PAIN. MAY REPEAT EVERY 5 MINUTES IF NEEDED; MAX OF 3 DOSES. IF NO RELIEF, COURTNEY Insulin [place], Disposable, (PEN NEEDLE) 32 gauge x 5/32 Inject 1 Each subcutaneously every 24 hours. Give with each insulin administration. blood sugar diagnostic (TRUE METRIX GLUCOSE TEST STRIP) test strip testing once daily DX E11.9 Insulin No albuterol HFA (PROVENTIL HFA, VENTOLIN HFA) 90 mcg/actuation inhaler Inhale 2 Puffs as instructed every 6 hours as needed for wheezing/shortness of breath. aspirin, enteric coated (ASPIRIN, ENTERIC COATED) 81 mg EC tablet Take 1 tablet by mouth once daily. isosorbide mononitrate ER (IMDUR) 30 mg 24 hr tablet Take 1 tablet by mouth once daily. Take w/ 60 mg tablet for total daily dose of 90 mg. isosorbide mononitrate ER (IMDUR) 60 mg 24 hr tablet Take 1 tablet by mouth once daily. Take w/ 30 mg tablet for total daily dose of 90 mg. meclizine (ANTIVERT) 25 mg tab Take 1 tablet by mouth three times a day as needed. famotidine (PEPCID) 20 mg tablet Take 1 tablet by mouth two times a day. atorvastatin (LIPITOR) 80 mg tablet Take 1 tablet by mouth once daily. calcium-cholecalciferol, D3, (OSCAL+D 250) 250 mg-3.125 mcg (125 unit) per tablet Take 1 tablet by mouth two times a day. Cholecalciferol, Vitamin D3, 25 mcg (1,000 unit) cap Take 1 capsule by mouth once daily. empagliflozin (JARDIANCE) 10 mg tablet Take 1 tablet by mouth daily with breakfast. sertraline (ZOLOFT) 100 mg tablet Take 1 tablet by mouth once daily. atenolol (TENORMIN) 50 mg tablet Take 1 tablet by mouth once daily. linaGLIPtin (TRADJENTA) 5 mg tab Take 1 tablet by mouth once daily. buPROPion XL (WELLBUTRIN XL) 150 mg 24 hr tablet Take 1 tablet by mouth once daily. Blood Pressure Monitor Use as directed, Monitor and arm cuff. Dx: I25.119, N18.30, I.10 No current facility-administered medications for this visit. I have reviewed the nurses notes and I am aware of the family/social history. Since the last evaluation the medical history has not changed. PDMP website checked and validated. All prescriptions have been APPROPRIATELY filled. No suspicious activity was identified. 12/20/2024 by Vincent Valle MD Narcotic Agreement reviewed and signed?: N/A on December 20, 2024 Urine Panel: No results found for: UQCANN, UQBNZL, YUK7EYJ, UQAMPH, UQMAMP, UQBUPRE, UQNORBUP, UQMTHD, UQEDDP, UQTRAM, UQDTRM, UQFNTL, UQNFTL, UQCODE, UQMORP, UQDCDN, UQHCOD, UQOXYC, UQHMOR, UQOXYM, UQCREA, UQPH, UQSPGR, UQOXID, UQSPQ The pain panel was N/A PHYSICAL EXAMINATION: Performed in conjunction with observation. The patient was alert and oriented x3. The patient was in no acute distress. Lungs: Clear, negative for dyspnea or distress. CVR: Regular Rate. Negative for SOB or peripheral edema. Neck: Supple. The range of motion was intact. Back: Range of motion of the trunk was intact. Diffuse bilateral lumbosacral tenderness. SLR: Negative Facet Loading: Negative with axial loading and extension. Extremities: no reported edema or erythema. Motor: Negative focal deficits Gait: Slow to stand with slight flexed posture. Otherwise, within normal limits. ASSESSMENT: Degeneration of intervertebral disc of lumbar region with discogenic back pain (primary encounter diagnosis) Spondylolisthesis of lumbar region Radiculopathy, lumbar region Spinal stenosis of lumbar region with neurogenic claudication PLAN: Prior available imaging studies were reviewed. Findings were discussed. Injection history was reviewed. Medication use and compliance were reviewed. 1. [facility] 2. Interventional procedure options discussed. None 3. Requested Prescriptions Signed Prescriptions Disp Refills methocarbamol (ROBAXIN-750) 750 mg tablet 90 tablet 2 Sig: Take 1 tablet by mouth three times a day as needed. HYDROcodone-acetaminophen (NORCO) 5-325 mg per tablet 28 tablet 0 Sig: Take 1-2 tablets by mouth every 6 hours as needed for pain for up to 7 days. 4. Encouraged regular home exercise program. 5) F/U in 3 months The treatment plan was discussed with the patient during the office visit and they verbalized an understanding of it. I have discussed and confirmed the above treatment plan with the patient and I have reviewed the nurses notes and I am aware of the family/social history. I have confirmed ROS findings. Vincent Valle MD cc: Dr. Garrett Ventura MD cc: No referring provider defined for this encounter. Phone: N/A Fax: Results of consultation to be transmitted via electronic medical record for those providers who practice within [facility] or with access to [employer] via MD Connect, or via letter. 1. This document has been created with the use of voice recognition technology. It may contain inaccuracies: (e.g. misspellings, inaccurate syntax or word sense) that have escaped review. 2. The nurse practitioner, nursing staff and medical assistants are a major part of YOUR TREATMENT TEAM and will be handling your phone calls and inquiries, if any. Unless explicitly told otherwise at the time of your office visit, your study results and ensuing treatment plans will be discussed during your follow-up appointment. If you do not have a follow-up appointment and wish to discuss any issues, please set up an appointment. 3. All of the office notes, study results, and other pertinent documentation generated as part of your evaluation will be available to you and to your Primary Care Physician (PCP). Use of this material to complete such forms will be at the discretion of your PCP/referring physician. documented in this encounter [facility] 12-18-2024 Instructions Daksha Anton MD - 12/18/2024 3:39 PM EDT Please increase the dose of lantus to 15 units daily Continue Jardiance and Tradjenta as is Continue to check blood sugars as is documented in this encounter [facility] 12-18-2024 Note HNO ID: [id number] Author: DAKSHA ANTON MD Service: ? Author Type: Physician Type: Progress Notes Filed: 12/28/2024 19:47 Note Text: [facility] Follow up note Referred by: Dr. Garrett Ventura MD (PCP) Chief complaint: Poorly controlled Type 2 DM My final recommendations will be communicated back to the requesting physician by way of shared medical record or letter via [place] mail. History of Present Illness: Roseann Viveros is a 59-year-old female with a history of DM, HTN, HLD, lumbar stenosis, and CKD, presenting for follow up of DM type 2 Initial visit 09/15/24 [facility] 11/14/24 -Initially diagnosed: 22 years ago, following the of her youngest child. Denied any surgeries on pancreas, pancreatitis in the past . Symptoms No recent weight loss; desires weight reduction. Reports polyuria; suspects current yeast infection with dysuria and pruritus. Complications: Cardiovascular -- Yes HTN, HLP, CAD Has a follow-up appointment with a extractions technologist on Wednesday to discuss potential cardiac catheterization due to dyspnea. Statin Use -- yes atorvastatin 80 mg daily Retinopathy -- no Last PRATEEK/Retina Eval: Last eye exam approximately one year ago; reports no retinopathy- underwent laser surgery on both eyes, improving vision. Advised to schedule appt but has not completed this yet Nephropathy -- CKD stage 3b NEPTALI/ARB Use -- no Polyneuropathy -- Occasional paresthesia in feet; no recent episodes. Foot Exam: none - done on initial office visit with [facility] Obesity -- No Other -- No -Family history of diabetes mellitus: in mother () and brother (complicated by open heart surgery and hypoglycemic car accident). Personal history of DKA or HHS-- No Personal history of pancreatitis-- No History of alcohol consumption--No Family history of thyroid cancer-- No Personal history of Urinary tract infections -- Reports polyuria; suspects current yeast infection with dysuria and pruritus. Diabetic education class: has completed with [facility] at [place] on 09/26/2024 . Diabetes Medications -Current regimen: Tradjenta 5 mg and Jardiance 10 mg, 12 units lantus daily . -Misses doses: None -Adverse medication effects: none Reports being scared of needles, and does not prefer using insulin -Previously Used DM Meds: Yes Metformin - was on it for almost 20 years, had no side effects, was discontinued Glimepiride- d/cd due to unknown reasons per patient . Blood sugars -Self monitoring of blood sugar via fingerstick: advised twice daily, but has not been doing as such. - we discussed about CGM on initial visit, but she is worried she will not be able to afford it, so we decided to do Considers blood glucose levels above 200 mg/dL as high and below 70-75 mg/dL as low. -Brought blood glucose log for review: yes -BG log reviewed: yes Interval history: 12/18/2024 She is checking blood glucose with finger sticks twice daily as instructed. Most of the sugars are in 180s-240s in November - only three BG readings in 120s, two times in the evening and one time in the morning in the month of November . Hypoglycemia -Hypoglycemic episodes: no recent episodes -Frequency and timing of hypoglycemia: N/A -Hypoglycemia awareness: yes, feels diaphoretic Manages high blood glucose with crackers and low blood glucose with candy. . 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 -Diet: Breakfast: Lunch: Dinner: Typically eats one to two meals per day, often skipping breakfast. Eats dinner with son and his family- reports daughter in law is not making much pasta now ROS: SYSTEMIC: Denies fatigue, malaise, energy, Weight has been stable, heat/cold intolerance, polydipsia EYES: Denies blurring of vision, diplopia, pain/discomfort, excessive tearing, swelling of eye lids, bulging, redness, dryness, NECK: Denies goiter, lump, pain/discomfort, dysphagia, hoarseness, sore thorat RESPIRATORY: Denies dyspnea at rest/with exertion, orthopnea cough, pleuritic chest pain, snoring, apnea episodes CARDIOVASCULAR: Chest pain, palpitations, irregular heart beats GASTRO-INTESTINAL:Denies Nausea, vomiting, abdominal pain, hyperdefecation, rectal bleeding NEUROLOGICAL: Denies dizziness, lightheadedness, weakness, cramping, numbness/tingling of extremities MUSCULOSKELETAL: Denies joint pain, stiffness, swelling, cramping or weakness. GENITOURINARY: Denies polyuria, recurrent UTI/yeast infections SKIN: Denies dryness, brittle nails, hair loss, alopecia, excessive sweating, flushing, darkening of skin PSYCHIATRIC: Denies anxiety, depression, panic attacks, irritability, mood swings Past Medical History PAST MEDICAL HISTORY Diagnosis Date Anxiety 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 08/31/2016 Depression Diabetes mellitus (HCC) 2011 N (more content not included)... [facility] 12-18-2024 History of Present illness Narrative [facility] Follow up note Referred by: Dr. Garrett Ventura MD (PCP) Chief complaint: Poorly controlled Type 2 DM My final recommendations will be communicated back to the requesting physician by way of shared medical record or letter via [place] mail. History of Present Illness: Roseann Viveros is a 59-year-old female with a history of DM, HTN, HLD, lumbar stenosis, and CKD, presenting for follow up of DM type 2 Initial visit 09/15/24 [facility] 11/14/24 -Initially diagnosed: 22 years ago, following the of her youngest child. Denied any surgeries on pancreas, pancreatitis in the past . Symptoms No recent weight loss; desires weight reduction. Reports polyuria; suspects current yeast infection with dysuria and pruritus. Complications: Cardiovascular -- Yes HTN, HLP, CAD Has a follow-up appointment with a extractions technologist on Wednesday to discuss potential cardiac catheterization due to dyspnea. Statin Use -- yes atorvastatin 80 mg daily Retinopathy -- no Last PRATEEK/Retina Eval: Last eye exam approximately one year ago; reports no retinopathy- underwent laser surgery on both eyes, improving vision. Advised to schedule appt but has not completed this yet Nephropathy -- CKD stage 3b NEPTALI/ARB Use -- no Polyneuropathy -- Occasional paresthesia in feet; no recent episodes. Foot Exam: none - done on initial office visit with [facility] Obesity -- No Other -- No -Family history of diabetes mellitus: in mother () and brother (complicated by open heart surgery and hypoglycemic car accident). Personal history of DKA or HHS-- No Personal history of pancreatitis-- No History of alcohol consumption--No Family history of thyroid cancer-- No Personal history of Urinary tract infections -- Reports polyuria; suspects current yeast infection with dysuria and pruritus. Diabetic education class: has completed with [facility] at [place] on 09/26/2024 . Diabetes Medications -Current regimen: Tradjenta 5 mg and Jardiance 10 mg, 12 units lantus daily . -Misses doses: None -Adverse medication effects: none Reports being scared of needles, and does not prefer using insulin -Previously Used DM Meds: Yes Metformin - was on it for almost 20 years, had no side effects, was discontinued Glimepiride- d/cd due to unknown reasons per patient . Blood sugars -Self monitoring of blood sugar via fingerstick: advised twice daily, but has not been doing as such. - we discussed about CGM on initial visit, but she is worried she will not be able to afford it, so we decided to do Considers blood glucose levels above 200 mg/dL as high and below 70-75 mg/dL as low. -Brought blood glucose log for review: yes -BG log reviewed: yes Interval history: 12/18/2024 She is checking blood glucose with finger sticks twice daily as instructed. Most of the sugars are in 180s-240s in November - only three BG readings in 120s, two times in the evening and one time in the morning in the month of November . Hypoglycemia -Hypoglycemic episodes: no recent episodes -Frequency and timing of hypoglycemia: N/A -Hypoglycemia awareness: yes, feels diaphoretic Manages high blood glucose with crackers and low blood glucose with candy. . 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 -Diet: Breakfast: Lunch: Dinner: Typically eats one to two meals per day, often skipping breakfast. Eats dinner with son and his family- reports daughter in law is not making much pasta now ROS: SYSTEMIC: Denies fatigue, malaise, energy, Weight has been stable, heat/cold intolerance, polydipsia EYES: Denies blurring of vision, diplopia, pain/discomfort, excessive tearing, swelling of eye lids, bulging, redness, dryness, NECK: Denies goiter, lump, pain/discomfort, dysphagia, hoarseness, sore thorat RESPIRATORY: Denies dyspnea at rest/with exertion, orthopnea cough, pleuritic chest pain, snoring, apnea episodes CARDIOVASCULAR: Chest pain, palpitations, irregular heart beats GASTRO-INTESTINAL:Denies Nausea, vomiting, abdominal pain, hyperdefecation, rectal bleeding NEUROLOGICAL: Denies dizziness, lightheadedness, weakness, cramping, numbness/tingling of extremities MUSCULOSKELETAL: Denies joint pain, stiffness, swelling, cramping or weakness. GENITOURINARY: Denies polyuria, recurrent UTI/yeast infections SKIN: Denies dryness, brittle nails, hair loss, alopecia, excessive sweating, flushing, darkening of skin PSYCHIATRIC: Denies anxiety, depression, panic attacks, irritability, mood swings Past Medical History PAST MEDICAL HISTORY Diagnosis Date Anxiety 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 08/31/2016 Depression Diabetes mellitus (HCC) 2010 No nephropathy, neuropathy, retinopathy DJD (degenerative joint disease) of lumbar spine Hyperlipidemia 2011 Low back pain [id number] Unspecified , without mention of complication, unspecified (HCC) 2 Miscarriage's Past Surgical History PAST SURGICAL HISTORY Procedure Laterality Date DELIVERY ONLY , low cervical, (2) DILATION & CURETTAGE DX&/THER NONOBSTETRIC Dilation & curettage x 2 LIGATE FALLOPIAN TUBE 2002 NEUROPLASTY &/TRANSPOS MEDIAN NRV CARPAL TUNNE Bilateral 09/18/2016 THYROID FINE NEEDLE ASPIRATION Right 07/07/2021 THYROID FINE NEEDLE ASPIRATION 08/01/2021 TONSILLECTOMY & ADENOIDECTOMY <AGE 12 Family History FAMILY HISTORY Problem Relation Age of Onset Diabetes Mother Heart Mother Cataract Mother Emphysema Father Cancer Father other (Kidney Failure) Father Arthritis Paternal Aunt Arthritis Paternal Grandmother Hands Social History Social History Tobacco Use Smoking status: Former Current packs/day: 0.00 Average packs/day: 0.3 packs/day for 20.0 years (6.0 ttl pk-yrs) Types: Cigarettes Start date: 03/24/2003 Quit date: 03/24/2023 Years since quittin.7 Passive exposure: Past Smokeless tobacco: Never Vaping Use Vaping status: current everyday user Substances: Nicotine, Flavoring Devices: Disposable Substance Use Topics Alcohol use: Not Currently Comment: Quit 2001 Drug use: Not Currently Types: Marijuana Allergies ALLERGIES Allergen Reactions Bee Venom Protein (* Swelling Current Medications Current Outpatient Medications Medication Sig Dispense Refill blood sugar diagnostic (BLOOD GLUCOSE TEST) test strip Test blood sugar(s) 1 times daily. Dx: Type 2 DM - Controlled E11.9 Insulin: No 50 strip 11 Blood-Glucose Meter 1 each once daily. DXE11.9 1 each 0 Lancets Use with blood glucose test once daily DX: E11.9 100 each 3 methocarbamol (ROBAXIN-750) 750 mg tablet Take 1 tablet by mouth three times a day as needed. 90 tablet 2 nitroglycerin sublingual (NITROQUICK) 0.4 mg SL tablet DISSOLVE 1 (ONE) TABLET UNDER THE TONGUE NEEDED FOR CHEST PAIN. MAY REPEAT EVERY 5 MINUTES IF NEEDED; MAX OF 3 DOSES. IF NO RELIEF, COURTNEY 25 tablet 3 insulin glargine (LANTUS SOLOSTAR U-100 INSULIN) 100 unit/mL (3 mL) Inject 8 Units subcutaneously every 24 hours. (Patient taking differently: Inject 12 Units subcutaneously every morning.) 15 mL 0 Insulin Sel[place], Disposable, (PEN NEEDLE) 32 gauge x 5/32 Inject 1 Each subcutaneously every 24 hours. Give with each insulin administration. 100 Each 3 blood sugar diagnostic (TRUE METRIX GLUCOSE TEST STRIP) test strip testing once daily DX E11.9 Insulin No 200 Strip 2 albuterol HFA (PROVENTIL HFA, VENTOLIN HFA) 90 mcg/actuation inhaler Inhale 2 Puffs as instructed every 6 hours as needed for wheezing/shortness of breath. 18 g 1 aspirin, enteric coated (ASPIRIN, ENTERIC COATED) 81 mg EC tablet Take 1 tablet by mouth once daily. 90 tablet 3 isosorbide mononitrate ER (IMDUR) 30 mg 24 hr tablet Take 1 tablet by mouth once daily. Take w/ 60 mg tablet for total daily dose of 90 mg. 90 tablet 3 isosorbide mononitrate ER (IMDUR) 60 mg 24 hr tablet Take 1 tablet by mouth once daily. Take w/ 30 mg tablet for total daily dose of 90 mg. 90 tablet 3 meclizine (ANTIVERT) 25 mg tab Take 1 tablet by mouth three times a day as needed. 90 tablet 1 famotidine (PEPCID) 20 mg tablet Take 1 tablet by mouth two times a day. 180 tablet 3 atorvastatin (LIPITOR) 80 mg tablet Take 1 tablet by mouth once daily. 90 tablet 3 calcium-cholecalciferol, D3, (OSCAL+D 250) 250 mg-3.125 mcg (125 unit) per tablet Take 1 tablet by mouth two times a day. 60 tablet 11 Cholecalciferol, Vitamin D3, 25 mcg (1,000 unit) cap Take 1 capsule by mouth once daily. 30 capsule 11 empagliflozin (JARDIANCE) 10 mg tablet Take 1 tablet by mouth daily with breakfast. 90 tablet 3 sertraline (ZOLOFT) 100 mg tablet Take 1 tablet by mouth once daily. 90 tablet 3 atenolol (TENORMIN) 50 mg tablet Take 1 tablet by mouth once daily. 90 tablet 3 linaGLIPtin (TRADJENTA) 5 mg tab Take 1 tablet by mouth once daily. 90 tablet 3 buPROPion XL (WELLBUTRIN XL) 150 mg 24 hr tablet Take 1 tablet by mouth once daily. 90 tablet 3 Blood Pressure Monitor Use as directed, Monitor and arm cuff. Dx: I25.119, N18.30, I.10 1 Kit 0 No current facility-administered medications for this visit. Vitals: 12/18/24 1526 BP: 108/72 BP Site: Right Arm BP Position: Sitting BP Cuff Size: Regular Adult Pulse: 67 Resp: 18 SpO2: 97% Weight: 58.2 kg (128 lb 3.2 oz) Height: 157.5 cm (5' 2) Physical Exam GENERAL: Well nourished, well hydrated, in no distress and oriented x 3, moderately built EYES: no thyroid eye signs, EOMI NECK: , no tenderness and adenopathy THYROID: Non-tender to palpable, no evidence of goiter, no nodules palpable LUNGS: Unlabored on room air HEART: regular rate and rhythm GI: no lipodystrophy of injection sites EXTREMITIES: no edema NEURO: normal strength, no tremor, monofilament testing with normal sensations on 09/15/24, but has onychomycosis OTHER: Acanthosis None Labs Hemoglobin A1C (POCT) Date Value Ref Range Status 11/14/2024 10.4 (A) 4.3 - 5.6 % Final Comment: Location:[facility], [address], [place], [address] Point of care (POC) Hemoglobin A1c (HGBA1C) testing is intended to assess glucose control and provide a management tool for patients known to have diabetes and their healthcare providers. Target HGBA1C levels may depend on specific clinical circumstances. POC HGBA1C is not intended for use as a diagnostic or screening test; laboratory-based testing should be used for diagnostic purposes. The following information is supplemental and may not be applicable to specific diabetes management situations: The POC device temporary staff accountant provides a normal range of 4.2% to 6.5% for the HGBA1C POC test. However, the [place] [employer] guidelines indicate that patients with HGBA1C in the range of 5.7% to 6.4% are at increased risk for development of diabetes and that intervention by lifestyle modification may be beneficial. A HGBA1C level greater than or equal to 6.5% is considered diagnostic of diabetes, pending confirmatory testing. Use of HGBA1C testing to evaluate glucose control may not be appropriate for patients with hemoglobin variants or other conditions (e.g. anemia) that alter red blood cell lifespan. Albumin/Creat Ratio Date Value Ref Range Status 08/02/2024 <23 <30 mg/g Final Comment: Adult Male and Female Nephrotic Criteria: <30 mg/g is considered normal to mildly increased 30-300 mg/g is considered moderately increased >300 mg/g is considered severely increased KDIGO. (2013). KDIGO 2012 Clinical Practice Guideline for the Evaluation and Management of Chronic Kidney Disease. Official Journal of the International Society of Nephrology, 3(1), 1-150. Total Cholesterol, Nonfasting Date Value Ref Range Status 08/02/2024 251 (H) <200 mg/dL Final Comment: <200 mg/dL, Desirable 200-239 mg/dL, Borderline high >239 mg/dL, High HDL Cholesterol, Nonfasting Date Value Ref Range Status 08/02/2024 42 >39 mg/dL Final Comment: 40-59 mg/dL, Acceptable >59 mg/dL, High: Negative risk factor for coronary heart disease <40 mg/dL, Low: Positive risk factor for coronary heart disease LDL Cholesterol, Calculated Date Value Ref Range Status 06/10/2023 82 <100 mg/dL Final Comment: <100 mg/dL, Optimal 100-129 mg/dL, Near optimal/above optimal 130-159 mg/dL, Borderline high 160-189 mg/dL, High >189 mg/dL, Very high Secondary prevention optimal LDL Cholesterol levels are recommended to be < 70 mg/dL Triglycerides, Nonfasting Date Value Ref Range Status 08/02/2024 660 (H) <150 mg/dL Final Comment: <150 mg/dL, Normal 150-199 mg/dL, Borderline high 200-499 mg/dL, High >499 mg/dL, Very high Vitamin D 25 Hydroxy (ng/mL) Date Value 09/22/2023 43.3 06/10/2023 39.8 04/08/2022 82.2 03/16/2022 20.5 Latest Ref Rng 07/06/2020 02/18/2021 06/18/2021 02/13/2022 06/10/2023 02/07/2024 08/02/2024 11/14/2024 Hemoglobin A1C 4.3 - 5.6 % 7.2 (H) 7.7 (H) 6.7 (H) 7.3 (H) 5.8 (H) 7.6 (H) 10.0 (H) 10.4 (H) Estimated Average Glucose mg/dL 160 174 146 163 120 171 240 Legend: (H) High Assessment and Plan Poorly controled type 2 DM: -A1c 10% in 07/2024, 10.4% in 10/2024 -eGFR 48 on 08/02/2024 -Current regimen: Jardiance 10 mg daily, Tradjenta 5 mg daily, Lantus 12 units daily - based on contraindications and options available, - on BG log, her readings are much better, and patient is very happy with her blood sugars, carly as she could see her sugars in 120s, which never happened before Plan: - increase lantus dose to 15 units daily - Continue Jardiance 10 mg daily, Tradjenta 5 mg daily - hypoglycemia and hypoglycemia treatment reviewed again - seen by diabetes education on 09/26/24 - recommended to continue to check blood sugar twice daily (fasting daily and second time alternating each day with prelunch, predinner, and bedtime BG) so glycemic control can be assessed at various times points in the day- advised bringing glucose log on next visit -Lifestyle modifications (diet, exercise) have been discussed with the patient briefly - discussed extensively about diet- carbs, protein, fats, and balancing these for better BG - advised follow up for eye exam - has followed with podiatry about diabetic foot exam, and dystrophic nails on 09/18/24 - advised avoiding dehydration- she had low BP today in office Uptodate: [place] components of routine care for people with diabetes mellitus Reviewed ABCs of diabetes management (respective goals in parentheses): A1C (<7), blood pressure (<140/90), and cholesterol (LDL <100). Reviewed: medications, MOA, timing and changes. Reviewed goals to complete prior to next visit. Health maintenance: BP: - Creatinine, GFR: 1.28, 48 (07/2024) - Liver enzymes AST, ALT: 14, 17 (01/2024) - Lipids: LDL unable to calculate due to high TG 660, total cholesterol 251 - Urine microalbumin: <23 - Thyroid: TSH No recent record - Feet: today - Eyes: one year ago, no retinopathy as reported, advised rescheduling but this is pending #Dyslipidemia # CAD -Continue atorvastatin 80 mg daily, aspirin- follows cardiology, Dr. Sauer # right breast rash She was also advised to reach out to PCP with regards to right chest rash, for which she has used steroids with medrol dose pack with no benefit Scripts sent to pharmacy of pt choice: Yes RTC in 2 months I have confirmed and edited as necessary, the past medical, surgical, family, and social history as obtained by others. Medical Decision Making: Problems: Moderate: 1+ chronic illnesses with change Risk: Moderate: Drug management Medical Decision Making Level: 4 - Moderate Daksha Anton MD Endocrinology Associate Staff [facility] [place] [phone] documented in this encounter [facility] 11-15-2024 Telephone encounter Note Patient calling she was seen in express care for rash on 10/31 on her right breast and radiates around to her mid back area. Patient said not doing any better she had taken medrol dose pack and other rx she was given. She said was blistery and she scratched some areas open, she said it is painful. 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 Patient plans to have her son take her to the express care again this evening. [facility] 11-15-2024 Miscellaneous Notes Patient calling she was seen in express care for rash on 10/31 on her right breast and radiates around to her mid back area. Patient said not doing any better she had taken medrol dose pack and other rx she was given. She said was blistery and she scratched some areas open, she said it is painful. 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 Patient plans to have her son take her to the express care again this evening. documented in this encounter [facility] 11-14-2024 Instructions Daksha Anton MD - 11/14/2024 4:37 PM EDT Please contact Dr. Ventura for the skin rash Continue same dose of jardiance as is Increase latus dose to 12 units daily Please bring glucose log on next visit documented in this encounter [facility] 11-14-2024 Note HNO ID: [id number] Author: DAKSHA ANTON MD Service: ? Author Type: Physician Type: Progress Notes Filed: 11/14/2024 18:58 Note Text: [facility] Follow up note Referred by: Dr. Garrett Ventura MD (PCP) Chief complaint: Poorly controlled Type 2 DM My final recommendations will be communicated back to the requesting physician by way of shared medical record or letter via US mail. History of Present Illness: Roseann Viveros is a 59-year-old female with a history of DM, HTN, HLD, lumbar stenosis, and CKD, presenting for follow up of DM type 2 Initial visit/CHARLENE 09/15/24 -Initially diagnosed: 22 years ago, following the of her youngest child. Denied any surgeries on pancreas, pancreatitis in the past . Symptoms No recent weight loss; desires weight reduction. Reports polyuria; suspects current yeast infection with dysuria and pruritus. Interval history: 11/14/24: She reports rash and shooting pain on skin of right breast. She went to express care and was given medrol dose pack, zyrtec for contact dermatitis on 10/31/24, with no much improvement Again reports sugars going to 400 mg/dl on very few occasions, but going down after few hours eating crackers Reports compliance with lantus Complications: Cardiovascular -- Yes HTN, HLP, CAD Has a follow-up appointment with a extractions technologist on Wednesday to discuss potential cardiac catheterization due to dyspnea. Statin Use -- yes atorvastatin 80 mg daily Retinopathy -- no Last PRATEEK/Retina Eval: Last eye exam approximately one year ago; reports no retinopathy- underwent laser surgery on both eyes, improving vision. Advised to schedule appt but has not completed this yet Nephropathy -- CKD stage 3b NEPTALI/ARB Use -- no Polyneuropathy -- Occasional paresthesia in feet; no recent episodes. Foot Exam: none - done on initial office visit with me Obesity -- No Other -- No -Family history of diabetes mellitus: in mother () and brother (complicated by open heart surgery and hypoglycemic car accident). Personal history of DKA or HHS-- No Personal history of pancreatitis-- No History of alcohol consumption--No Family history of thyroid cancer-- No Personal history of Urinary tract infections -- Reports polyuria; suspects current yeast infection with dysuria and pruritus. Diabetic education class: has completed with [facility] at [facility] on 09/26/2024 . Diabetes Medications -Current regimen: Tradjenta 5 mg and Jardiance 10 mg, 8 units lantus daily . -Misses doses: None -Adverse medication effects: none Reports being scared of needles, and does not prefer using insulin -Previously Used DM Meds: Yes Metformin - was on it for almost 20 years, had no side effects, was discontinued Glimepiride- d/cd due to unknown reasons per patient . Blood sugars -Self monitoring of blood sugar via fingerstick: advised twice daily, but has not been doing as such. - we discussed about CGM on initial visit, but she is worried she will not be able to afford it, so we decided to do Considers blood glucose levels above 200 mg/dL as high and below 70-75 mg/dL as low. -Brought blood glucose log for review: No -BG log reviewed: no Could not give much data verbally either today . Hypoglycemia -Hypoglycemic episodes: no recent episodes -Frequency and timing of hypoglycemia: N/A -Hypoglycemia awareness: yes, feels diaphoretic Manages high blood glucose with crackers and low blood glucose with candy. . 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 -Diet: Breakfast: Lunch: Dinner: Typically eats one to two meals per day, often skipping breakfast. ROS: SYSTEMIC: Denies fatigue, malaise, energy, Weight has been stable, heat/cold intolerance, polydipsia EYES: Denies blurring of vision, diplopia, pain/discomfort, excessive tearing, swelling of eye lids, bulging, redness, dryness, NECK: Denies goiter, lump, pain/discomfort, dysphagia, hoarseness, sore thorat RESPIRATORY: Denies dyspnea at rest/with exertion, orthopnea cough, pleuritic chest pain, snoring, apnea episodes CARDIOVASCULAR: Chest pain, palpitations, irregular heart beats GASTRO-INTESTINAL:Denies Nausea, vomiting, abdominal pain, hyperdefecation, rectal bleeding NEUROLOGICAL: Denies dizziness, lightheadedness, weakness, cramping, numbness/tingling of extremities MUSCULOSKELETAL: Denies joint pain, stiffness, swelling, cramping or weakness. GENITOURINARY: Denies polyuria, recurrent UTI/yeast infections SKIN: Denies dryness, brittle nails, hair loss, alopecia, excessive sweating, flushing, darkening of skin PSYCHIATRIC: Denies anxiety, depression, panic attacks, irritability, mood swings Past Medical History PAST MEDICAL HISTORY Diagnosis Date Anxiety 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 08/31/2016 D (more content not included)... [facility] 11-14-2024 History of Present illness Narrative [facility] Follow up note Referred by: Dr. Garrett Ventura MD (PCP) Chief complaint: Poorly controlled Type 2 DM My final recommendations will be communicated back to the requesting physician by way of shared medical record or letter via [place] mail. History of Present Illness: Roseann Viveros is a 59-year-old female with a history of DM, HTN, HLD, lumbar stenosis, and CKD, presenting for follow up of DM type 2 Initial visit/CHARLENE 09/15/24 -Initially diagnosed: 22 years ago, following the of her youngest child. Denied any surgeries on pancreas, pancreatitis in the past . Symptoms No recent weight loss; desires weight reduction. Reports polyuria; suspects current yeast infection with dysuria and pruritus. Interval history: 11/14/24: She reports rash and shooting pain on skin of right breast. She went to [facility] and was given medrol dose pack, zyrtec for contact dermatitis on 10/31/24, with no much improvement Again reports sugars going to 400 mg/dl on very few occasions, but going down after few hours eating crackers Reports compliance with lantus Complications: Cardiovascular -- Yes HTN, HLP, CAD Has a follow-up appointment with a extractions technologist on Wednesday to discuss potential cardiac catheterization due to dyspnea. Statin Use -- yes atorvastatin 80 mg daily Retinopathy -- no Last PRATEEK/Retina Eval: Last eye exam approximately one year ago; reports no retinopathy- underwent laser surgery on both eyes, improving vision. Advised to schedule appt but has not completed this yet Nephropathy -- CKD stage 3b NEPTALI/ARB Use -- no Polyneuropathy -- Occasional paresthesia in feet; no recent episodes. Foot Exam: none - done on initial office visit with [facility] Obesity -- No Other -- No -Family history of diabetes mellitus: in mother () and brother (complicated by open heart surgery and hypoglycemic car accident). Personal history of DKA or HHS-- No Personal history of pancreatitis-- No History of alcohol consumption--No Family history of thyroid cancer-- No Personal history of Urinary tract infections -- Reports polyuria; suspects current yeast infection with dysuria and pruritus. Diabetic education class: has completed with [facility] at [facility] on 09/26/2024 . Diabetes Medications -Current regimen: Tradjenta 5 mg and Jardiance 10 mg, 8 units lantus daily . -Misses doses: None -Adverse medication effects: none Reports being scared of needles, and does not prefer using insulin -Previously Used DM Meds: Yes Metformin - was on it for almost 20 years, had no side effects, was discontinued Glimepiride- d/cd due to unknown reasons per patient . Blood sugars -Self monitoring of blood sugar via fingerstick: advised twice daily, but has not been doing as such. - we discussed about CGM on initial visit, but she is worried she will not be able to afford it, so we decided to do Considers blood glucose levels above 200 mg/dL as high and below 70-75 mg/dL as low. -Brought blood glucose log for review: No -BG log reviewed: no Could not give much data verbally either today . Hypoglycemia -Hypoglycemic episodes: no recent episodes -Frequency and timing of hypoglycemia: N/A -Hypoglycemia awareness: yes, feels diaphoretic Manages high blood glucose with crackers and low blood glucose with candy. . 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 -Diet: Breakfast: Lunch: Dinner: Typically eats one to two meals per day, often skipping breakfast. ROS: SYSTEMIC: Denies fatigue, malaise, energy, Weight has been stable, heat/cold intolerance, polydipsia EYES: Denies blurring of vision, diplopia, pain/discomfort, excessive tearing, swelling of eye lids, bulging, redness, dryness, NECK: Denies goiter, lump, pain/discomfort, dysphagia, hoarseness, sore thorat RESPIRATORY: Denies dyspnea at rest/with exertion, orthopnea cough, pleuritic chest pain, snoring, apnea episodes CARDIOVASCULAR: Chest pain, palpitations, irregular heart beats GASTRO-INTESTINAL:Denies Nausea, vomiting, abdominal pain, hyperdefecation, rectal bleeding NEUROLOGICAL: Denies dizziness, lightheadedness, weakness, cramping, numbness/tingling of extremities MUSCULOSKELETAL: Denies joint pain, stiffness, swelling, cramping or weakness. GENITOURINARY: Denies polyuria, recurrent UTI/yeast infections SKIN: Denies dryness, brittle nails, hair loss, alopecia, excessive sweating, flushing, darkening of skin PSYCHIATRIC: Denies anxiety, depression, panic attacks, irritability, mood swings Past Medical History PAST MEDICAL HISTORY Diagnosis Date Anxiety 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 08/31/2016 Depression Diabetes mellitus (HCC) 2010 No nephropathy, neuropathy, retinopathy DJD (degenerative joint disease) of lumbar spine Hyperlipidemia 2011 Low back pain [id number] Unspecified , without mention of complication, unspecified (HCC) 2 Miscarriage's Past Surgical History PAST SURGICAL HISTORY Procedure Laterality Date DELIVERY ONLY , low cervical, (2) DILATION & CURETTAGE DX&/THER NONOBSTETRIC Dilation & curettage x 2 LIGATE FALLOPIAN TUBE 2001 NEUROPLASTY &/TRANSPOS MEDIAN NRV CARPAL TUNNE Bilateral 09/18/2016 THYROID FINE NEEDLE ASPIRATION Right 07/07/2021 THYROID FINE NEEDLE ASPIRATION 08/01/2021 TONSILLECTOMY & ADENOIDECTOMY <AGE 12 Family History FAMILY HISTORY Problem Relation Age of Onset Diabetes Mother Heart Mother Cataract Mother Emphysema Father Cancer Father other (Kidney Failure) Father Arthritis Paternal Aunt Arthritis Paternal Grandmother Hands Social History Social History Tobacco Use Smoking status: Former Current packs/day: 0.00 Average packs/day: 0.3 packs/day for 20.0 years (6.0 ttl pk-yrs) Types: Cigarettes Start date: 03/24/2003 Quit date: 03/24/2023 Years since quittin.6 Smokeless tobacco: Never Tobacco comments: TRYING TO QUIT-SMOKES 1-2 A DAY as of 11/28/15 Vaping Use Vaping status: current everyday user Substances: Nicotine, Flavoring Devices: Disposable Substance Use Topics Alcohol use: Not Currently Comment: Quit 2001 Drug use: Not Currently Types: Marijuana Allergies ALLERGIES Allergen Reactions Bee Venom Protein (* Swelling Current Medications Current Outpatient Medications Medication Sig Dispense Refill triamcinolone acetonide (KENALOG) 0.1 % cream Apply 1 application to affected area two times a day for 14 days. Apply to affected area. Location: Rash 30 g 0 cetirizine (ZYRTEC) 10 mg tablet Take 1 tablet by mouth once daily. 30 tablet 0 blood sugar diagnostic (BLOOD GLUCOSE TEST) test strip Test blood sugar(s) 1 times daily. Dx: Type 2 DM - Controlled E11.9 Insulin: No 50 strip 11 Blood-Glucose Meter 1 each once daily. DXE11.9 1 each 0 Lancets Use with blood glucose test once daily DX: E11.9 100 each 3 methocarbamol (ROBAXIN-750) 750 mg tablet Take 1 tablet by mouth three times a day as needed. 90 tablet 2 nitroglycerin sublingual (NITROQUICK) 0.4 mg SL tablet DISSOLVE 1 (ONE) TABLET UNDER THE TONGUE NEEDED FOR CHEST PAIN. MAY REPEAT EVERY 5 MINUTES IF NEEDED; MAX OF 3 DOSES. IF NO RELIEF, COURTNEY 25 tablet 3 insulin glargine (LANTUS SOLOSTAR U-100 INSULIN) 100 unit/mL (3 mL) Inject 8 Units subcutaneously every 24 hours. 15 mL 0 Insulin [place], Disposable, (PEN NEEDLE) 32 gauge x 5/32 Inject 1 Each subcutaneously every 24 hours. Give with each insulin administration. 100 Each 3 blood sugar diagnostic (TRUE METRIX GLUCOSE TEST STRIP) test strip testing once daily DX E11.9 Insulin No 200 Strip 2 albuterol HFA (PROVENTIL HFA, VENTOLIN HFA) 90 mcg/actuation inhaler Inhale 2 Puffs as instructed every 6 hours as needed for wheezing/shortness of breath. 18 g 1 aspirin, enteric coated (ASPIRIN, ENTERIC COATED) 81 mg EC tablet Take 1 tablet by mouth once daily. 90 tablet 3 isosorbide mononitrate ER (IMDUR) 30 mg 24 hr tablet Take 1 tablet by mouth once daily. Take w/ 60 mg tablet for total daily dose of 90 mg. 90 tablet 3 isosorbide mononitrate ER (IMDUR) 60 mg 24 hr tablet Take 1 tablet by mouth once daily. Take w/ 30 mg tablet for total daily dose of 90 mg. 90 tablet 3 meclizine (ANTIVERT) 25 mg tab Take 1 tablet by mouth three times a day as needed. 90 tablet 1 Lancets Test blood sugar(s) One time daily. Dx: Type 2 DM - Controlled E11.9 Insulin: No. 100 Each 11 famotidine (PEPCID) 20 mg tablet Take 1 tablet by mouth two times a day. 180 tablet 3 atorvastatin (LIPITOR) 80 mg tablet Take 1 tablet by mouth once daily. 90 tablet 3 calcium-cholecalciferol, D3, (OSCAL+D 250) 250 mg-3.125 mcg (125 unit) per tablet Take 1 tablet by mouth two times a day. 60 tablet 11 Cholecalciferol, Vitamin D3, 25 mcg (1,000 unit) cap Take 1 capsule by mouth once daily. 30 capsule 11 empagliflozin (JARDIANCE) 10 mg tablet Take 1 tablet by mouth daily with breakfast. 90 tablet 3 sertraline (ZOLOFT) 100 mg tablet Take 1 tablet by mouth once daily. 90 tablet 3 atenolol (TENORMIN) 50 mg tablet Take 1 tablet by mouth once daily. 90 tablet 3 linaGLIPtin (TRADJENTA) 5 mg tab Take 1 tablet by mouth once daily. 90 tablet 3 buPROPion XL (WELLBUTRIN XL) 150 mg 24 hr tablet Take 1 tablet by mouth once daily. 90 tablet 3 Blood Pressure Monitor Use as directed, Monitor and arm cuff. Dx: I25.119, N18.30, I.10 1 Kit 0 No current facility-administered medications for this visit. Vitals: 11/14/24 1617 BP Site: Right Arm BP Position: Sitting BP Cuff Size: Regular Adult Pulse: 76 Resp: 12 Temp: 36.1 C (97 F) TempSrc: Temporal Artery SpO2: 96% Weight: 58.7 kg (129 lb 6.4 oz) Physical Exam GENERAL: Well nourished, obese, well hydrated, in no distress and oriented x 3 EYES: no thyroid eye signs, EOMI NECK: , no tenderness and adenopathy THYROID: Non-tender to palpable, no evidence of goiter, no nodules palpable LUNGS: Unlabored on room air HEART: regular rate and rhythm GI: deferred EXTREMITIES: no edema NEURO: normal strength, no tremor, monofilament testing with normal sensations on 09/15/24, but has onychomycosis OTHER: Acanthosis None Labs Hemoglobin A1C Date Value Ref Range Status 08/02/2024 10.0 (H) 4.3 - 5.6 % Final Comment: [place] [employer] guidelines indicate that patients with HgbA1c in the range 5.7-6.4% are at increased risk for development of diabetes, and intervention by lifestyle modification may be beneficial. HgbA1c greater or equal to 6.5% is considered diagnostic of diabetes. Albumin/Creat Ratio Date Value Ref Range Status 08/02/2024 <23 <30 mg/g Final Comment: Adult Male and Female Nephrotic Criteria: <30 mg/g is considered normal to mildly increased 30-300 mg/g is considered moderately increased >300 mg/g is considered severely increased KDIGO. (2013). KDIGO 2012 Clinical Practice Guideline for the Evaluation and Management of Chronic Kidney Disease. Official Journal of the International Society of Nephrology, 3(1), 1-150. Total Cholesterol, Nonfasting Date Value Ref Range Status 08/02/2024 251 (H) <200 mg/dL Final Comment: <200 mg/dL, Desirable 200-239 mg/dL, Borderline high >239 mg/dL, High HDL Cholesterol, Nonfasting Date Value Ref Range Status 08/02/2024 42 >39 mg/dL Final Comment: 40-59 mg/dL, Acceptable >59 mg/dL, High: Negative risk factor for coronary heart disease <40 mg/dL, Low: Positive risk factor for coronary heart disease LDL Cholesterol, Calculated Date Value Ref Range Status 06/10/2023 82 <100 mg/dL Final Comment: <100 mg/dL, Optimal 100-129 mg/dL, Near optimal/above optimal 130-159 mg/dL, Borderline high 160-189 mg/dL, High >189 mg/dL, Very high Secondary prevention optimal LDL Cholesterol levels are recommended to be < 70 mg/dL Triglycerides, Nonfasting Date Value Ref Range Status 08/02/2024 660 (H) <150 mg/dL Final Comment: <150 mg/dL, Normal 150-199 mg/dL, Borderline high 200-499 mg/dL, High >499 mg/dL, Very high Vitamin D 25 Hydroxy (ng/mL) Date Value 09/22/2023 43.3 06/10/2023 39.8 04/08/2022 82.2 03/16/2022 20.5 Latest Ref Rng 07/06/2020 02/18/2021 06/18/2021 02/13/2022 06/10/2023 02/07/2024 08/02/2024 Hemoglobin A1C 4.3 - 5.6 % 7.2 (H) 7.7 (H) 6.7 (H) 7.3 (H) 5.8 (H) 7.6 (H) 10.0 (H) Estimated Average Glucose mg/dL 160 174 146 163 120 171 240 Legend: (H) High Assessment and Plan Poorly controled type 2 DM: -A1c 10% in 07/2024, 10.4% today. Hyperglycemia also due to recent steroid use for 5 days at high dose -eGFR 48 on 08/02/2024 -Current regimen: Jardiance 10 mg daily, Tradjenta 5 mg daily, Lantus 8 units daily - based on contraindications and options available, Plan: - increase latus dose to 12 units daily - Continue Jardiance 10 mg daily, Tradjenta 5 mg daily -Instructed on side effects - hypoglycemia treatment reviewed. Also reviewed that high blood sugars will not get better with crackers - discussed seeing diabetes education, referral placed -Check blood sugar twice daily (fasting daily and second time alternating each day with prelunch, predinner, and bedtime BG) so glycemic control can be assessed at various times points in the day- advised bringing glucose log on next visit -Lifestyle modifications (diet, exercise) have been discussed with the patient briefly - discussed extensively about diet- carbs, protein, fats, and balancing these for better BG - advised follow up for eye exam - has followed with podiatry about diabetic foot exam, and dystrophic nails on 09/18/24 - advised avoiding dehydration- she had low BP today in office Uptodate: [place] components of routine care for people with diabetes mellitus Reviewed ABCs of diabetes management (respective goals in parentheses): A1C (<7), blood pressure (<140/90), and cholesterol (LDL <100). Reviewed: medications, MOA, timing and changes. Reviewed goals to complete prior to next visit. Health maintenance: BP: - Creatinine, GFR: 1.28, 48 (07/2024) - Liver enzymes AST, ALT: 14, 17 (01/2024) - Lipids: LDL unable to calculate due to high TG 660, total cholesterol 251 - Urine microalbumin: <23 - Thyroid: TSH No recent record - Feet: today - Eyes: one year ago, no retinopathy as reported, advised rescheduling but this is pending #Dyslipidemia # CAD -Continue atorvastatin 80 mg daily, aspirin- follows cardiology, Dr. Sauer # right breast rash She was also advised to reach out to PCP with regards to right chest rash, for which she has used steroids with medrol dose pack with no benefit Scripts sent to pharmacy of pt choice: Yes RTC in 1 to 2 months I have confirmed and edited as necessary, the past medical, surgical, family, and social history as obtained by others. Medical Decision Making: Problems: Moderate: 1+ chronic illnesses with change Data: Unique test result(s) reviewed: 3+ Unique test(s) ordered: 1 Risk: Moderate: Drug management Medical Decision Making Level: 4 - Moderate Daksha Anton MD Endocrinology Associate Staff [facility] Endocrinology and Metabolism [place] [phone] documented in this encounter [facility] 10-31-2024 Note HNO ID: [id number] Author: MANI MEDINA APRN.STAVE SAW OPERATOR Service: ? Author Type: Nurse Practitioner Type: Progress Notes Filed: 10/31/2024 16:56 Note Text: [facility] Subjective Roseann Viveros is a 59 year old year old who presents to [facility] care today with complaint Itchy elevated fluid-filled Rash developed 2 days ago, on Right breast, Right side and right side of back. Sores are not painful and are fluid filled. Used Hydrocortisone. Was recently at [employer] and they were outside playing in the yard and weeds. Denies headaches, fever, sore throat, cough, shortness of breath, chest pains, Nausea, vomiting, changes in bowel or bladder. Aside from symptoms as described above, patient has no other complaints at this time. HPI: see above Review of Systems Constitutional: Negative for chills, fatigue and fever. Respiratory: Negative for chest tightness, shortness of breath and wheezing. Cardiovascular: Negative for chest pain, palpitations and leg swelling. Gastrointestinal: Negative for diarrhea, nausea and vomiting. Genitourinary: Negative for dysuria, frequency and urgency. Musculoskeletal: Negative for myalgias. Skin: Positive for rash (elevated itchy rash to Right breast, right side and right side of back, non painful). ALLERGIES Allergen Reactions Bees Bee Venom Protein (* Unknown, Swelling Current Outpatient Medications on File Prior to Visit Medication Sig blood sugar diagnostic (BLOOD GLUCOSE TEST) test strip Test blood sugar(s) 1 times daily. Dx: Type 2 DM - Controlled E11.9 Insulin: No Blood-Glucose Meter 1 each once daily. DXE11.9 Lancets Use with blood glucose test once daily DX: E11.9 methocarbamol (ROBAXIN-750) 750 mg tablet Take 1 tablet by mouth three times a day as needed. nitroglycerin sublingual (NITROQUICK) 0.4 mg SL tablet DISSOLVE 1 (ONE) TABLET UNDER THE TONGUE NEEDED FOR CHEST PAIN. MAY REPEAT EVERY 5 MINUTES IF NEEDED; MAX OF 3 DOSES. IF NO RELIEF, COURTNEY insulin glargine (LANTUS SOLOSTAR U-100 INSULIN) 100 unit/mL (3 mL) Inject 8 Units subcutaneously every 24 hours. Insulin Selma, Disposable, (PEN NEEDLE) 32 gauge x 5/32 Inject 1 Each subcutaneously every 24 hours. Give with each insulin administration. blood sugar diagnostic (TRUE METRIX GLUCOSE TEST STRIP) test strip testing once daily DX E11.9 Insulin No albuterol HFA (PROVENTIL HFA, VENTOLIN HFA) 90 mcg/actuation inhaler Inhale 2 Puffs as instructed every 6 hours as needed for wheezing/shortness of breath. aspirin, enteric coated (ASPIRIN, ENTERIC COATED) 81 mg EC tablet Take 1 tablet by mouth once daily. isosorbide mononitrate ER (IMDUR) 30 mg 24 hr tablet Take 1 tablet by mouth once daily. Take w/ 60 mg tablet for total daily dose of 90 mg. isosorbide mononitrate ER (IMDUR) 60 mg 24 hr tablet Take 1 tablet by mouth once daily. Take w/ 30 mg tablet for total daily dose of 90 mg. meclizine (ANTIVERT) 25 mg tab Take 1 tablet by mouth three times a day as needed. Lancets Test blood sugar(s) One time daily. Dx: Type 2 DM - Controlled E11.9 Insulin: No. famotidine (PEPCID) 20 mg tablet Take 1 tablet by mouth two times a day. atorvastatin (LIPITOR) 80 mg tablet Take 1 tablet by mouth once daily. calcium-cholecalciferol, D3, (OSCAL+D 250) 250 mg-3.125 mcg (125 unit) per tablet Take 1 tablet by mouth two times a day. Cholecalciferol, Vitamin D3, 25 mcg (1,000 unit) cap Take 1 capsule by mouth once daily. empagliflozin (JARDIANCE) 10 mg tablet Take 1 tablet by mouth daily with breakfast. sertraline (ZOLOFT) 100 mg tablet Take 1 tablet by mouth once daily. atenolol (TENORMIN) 50 mg tablet Take 1 tablet by mouth once daily. linaGLIPtin (TRADJENTA) 5 mg tab Take 1 tablet by mouth once daily. buPROPion XL (WELLBUTRIN XL) 150 mg 24 hr tablet Take 1 tablet by mouth once daily. Blood Pressure Monitor Use as directed, Monitor and arm cuff. Dx: I25.119, N18.30, I.10 No current facility-administered medications on file prior to visit. ACTIVE PROBLEM LIST Hyperlipidemia Lumbar Stenosis Ddd (Degenerative Disc Disease), Lumbar Carpal Tunnel Syndrome, Bilateral Anxiety Coronary Artery Disease Radiculopathy, Lumbar Region Spondylolisthesis of Lumbar Region Spinal Stenosis of Lumbar Region With Neurogenic Claudication Controlled Type 2 Diabetes Mellitus Without Complication, Without Long-Term Current Use of Insulin ([facility]) Spondylolisthesis Essential (Primary) Hypertension Chronic Renal Disease, Stage IV ([facility]) Social History Tobacco Use Smoking status: Former Current packs/day: 0.00 Average packs/day: 0.3 packs/day for 20.0 years (6.0 ttl pk-yrs) Types: Cigarettes Start date: 03/24/2003 Quit date: 03/24/2023 Years since quittin.6 Smokeless tobacco: Never Tobacco comments: TRYING TO QUIT-SMOKES 1-2 A DAY as of 11/28/15 Vaping Use Vaping status: current everyday user Substances: Nicotine, Flavoring Devices: Disposable (more content not included)... [facility] 10-31-2024 History of Present illness Narrative Images from the original note were not included. [facility] NOTE Subjective Roseann Viveros is a 59 year old year old who presents to [facility] care today with complaint Itchy elevated fluid-filled Rash developed 2 days ago, on Right breast, Right side and right side of back. Sores are not painful and are fluid filled. Used Hydrocortisone. Was recently at [employer] and they were outside playing in the yard and weeds. Denies headaches, fever, sore throat, cough, shortness of breath, chest pains, Nausea, vomiting, changes in bowel or bladder. Aside from symptoms as described above, patient has no other complaints at this time. HPI: see above Review of Systems Constitutional: Negative for chills, fatigue and fever. Respiratory: Negative for chest tightness, shortness of breath and wheezing. Cardiovascular: Negative for chest pain, palpitations and leg swelling. Gastrointestinal: Negative for diarrhea, nausea and vomiting. Genitourinary: Negative for dysuria, frequency and urgency. Musculoskeletal: Negative for myalgias. Skin: Positive for rash (elevated itchy rash to Right breast, right side and right side of back, non painful). ALLERGIES Allergen Reactions Bees Bee Venom Protein (* Unknown, Swelling Current Outpatient Medications on File Prior to Visit Medication Sig blood sugar diagnostic (BLOOD GLUCOSE TEST) test strip Test blood sugar(s) 1 times daily. Dx: Type 2 DM - Controlled E11.9 Insulin: No Blood-Glucose Meter 1 each once daily. DXE11.9 Lancets Use with blood glucose test once daily DX: E11.9 methocarbamol (ROBAXIN-750) 750 mg tablet Take 1 tablet by mouth three times a day as needed. nitroglycerin sublingual (NITROQUICK) 0.4 mg SL tablet DISSOLVE 1 (ONE) TABLET UNDER THE TONGUE NEEDED FOR CHEST PAIN. MAY REPEAT EVERY 5 MINUTES IF NEEDED; MAX OF 3 DOSES. IF NO RELIEF, COURTNEY insulin glargine (LANTUS SOLOSTAR U-100 INSULIN) 100 unit/mL (3 mL) Inject 8 Units subcutaneously every 24 hours. Insulin Selma, Disposable, (PEN NEEDLE) 32 gauge x 5/32 Inject 1 Each subcutaneously every 24 hours. Give with each insulin administration. blood sugar diagnostic (TRUE METRIX GLUCOSE TEST STRIP) test strip testing once daily DX E11.9 Insulin No albuterol HFA (PROVENTIL HFA, VENTOLIN HFA) 90 mcg/actuation inhaler Inhale 2 Puffs as instructed every 6 hours as needed for wheezing/shortness of breath. aspirin, enteric coated (ASPIRIN, ENTERIC COATED) 81 mg EC tablet Take 1 tablet by mouth once daily. isosorbide mononitrate ER (IMDUR) 30 mg 24 hr tablet Take 1 tablet by mouth once daily. Take w/ 60 mg tablet for total daily dose of 90 mg. isosorbide mononitrate ER (IMDUR) 60 mg 24 hr tablet Take 1 tablet by mouth once daily. Take w/ 30 mg tablet for total daily dose of 90 mg. meclizine (ANTIVERT) 25 mg tab Take 1 tablet by mouth three times a day as needed. Lancets Test blood sugar(s) One time daily. Dx: Type 2 DM - Controlled E11.9 Insulin: No. famotidine (PEPCID) 20 mg tablet Take 1 tablet by mouth two times a day. atorvastatin (LIPITOR) 80 mg tablet Take 1 tablet by mouth once daily. calcium-cholecalciferol, D3, (OSCAL+D 250) 250 mg-3.125 mcg (125 unit) per tablet Take 1 tablet by mouth two times a day. Cholecalciferol, Vitamin D3, 25 mcg (1,000 unit) cap Take 1 capsule by mouth once daily. empagliflozin (JARDIANCE) 10 mg tablet Take 1 tablet by mouth daily with breakfast. sertraline (ZOLOFT) 100 mg tablet Take 1 tablet by mouth once daily. atenolol (TENORMIN) 50 mg tablet Take 1 tablet by mouth once daily. linaGLIPtin (TRADJENTA) 5 mg tab Take 1 tablet by mouth once daily. buPROPion XL (WELLBUTRIN XL) 150 mg 24 hr tablet Take 1 tablet by mouth once daily. Blood Pressure Monitor Use as directed, Monitor and arm cuff. Dx: I25.119, N18.30, I.10 No current facility-administered medications on file prior to visit. ACTIVE PROBLEM LIST Hyperlipidemia Lumbar Stenosis Ddd (Degenerative Disc Disease), Lumbar Carpal Tunnel Syndrome, Bilateral Anxiety Coronary Artery Disease Radiculopathy, Lumbar Region Spondylolisthesis of Lumbar Region Spinal Stenosis of Lumbar Region With Neurogenic Claudication Controlled Type 2 Diabetes Mellitus Without Complication, Without Long-Term Current Use of Insulin ([facility]) Spondylolisthesis Essential (Primary) Hypertension Chronic Renal Disease, Stage IV ([facility]) Social History Tobacco Use Smoking status: Former Current packs/day: 0.00 Average packs/day: 0.3 packs/day for 20.0 years (6.0 ttl pk-yrs) Types: Cigarettes Start date: 03/24/2003 Quit date: 03/24/2023 Years since quittin.6 Smokeless tobacco: Never Tobacco comments: TRYING TO QUIT-SMOKES 1-2 A DAY as of 11/28/15 Vaping Use Vaping status: current everyday user Substances: Nicotine, Flavoring Devices: Disposable Substance Use Topics Alcohol use: Not Currently Comment: Quit 2001 Drug use: Not Currently Types: Marijuana Objective BP 109/67 (BP Site: Right Arm) Pulse 70 Temp 36.9 C (98.4 F) Resp 16 Wt 54.4 kg (120 lb) LMP 09/01/2010 SpO2 98% BMI 21.95 kg/m Physical Exam Vitals reviewed. Constitutional: General: She is not in acute distress. Appearance: Normal appearance. She is not ill-appearing or toxic-appearing. Cardiovascular: Rate and Rhythm: Normal rate and regular rhythm. Pulses: Normal pulses. Heart sounds: Normal heart sounds. Pulmonary: Effort: Pulmonary effort is normal. Breath sounds: Normal breath sounds. Abdominal: General: Bowel sounds are normal. Palpations: Abdomen is soft. Skin: General: Skin is warm and dry. Capillary Refill: Capillary refill takes less than 2 seconds. Findings: Rash present. Rash is papular and vesicular. Neurological: Mental Status: She is alert and oriented to person, place, and time. Assessment/Plan 1. Allergic contact dermatitis, unspecified trigger (Primary) - methylPREDNISolone (MEDROL, NED,) 4 mg Dose-Pack; Follow dosing instructions, take with food. Dispense: 21 tablet; Refill: 0 - triamcinolone acetonide (KENALOG) 0.1 % cream; Apply 1 application to affected area two times a day for 14 days. Apply to affected area. Location: Rash Dispense: 30 g; Refill: 0 - cetirizine (ZYRTEC) 10 mg tablet; Take 1 tablet by mouth once daily. Dispense: 30 tablet; Refill: 0 Due to minimal distribution pattern, will treat with Medrol and topical steroids and anti-histamine and encouraged mild soap and water with cooling ice packs to areas as needed. Patient advised to drink fluids, get rest and take all meds as prescribed. Patient given educational materials - see instructions. Discussed use, benefit, and side effects of prescribed medications. All questions answered. Patient advised to follow up with PCP in one week, or sooner if symptoms worsen or persist. If symptoms become severe- GO TO ED. Patient verbalized understanding and agreeable with treatment plan. Mani Medina APRN, CNP 10/31/2024 4:50 PM documented in this encounter [facility] 10-31-2024 Instructions Mani Medina APRN.BERTHA - 10/31/2024 4:35 PM EDT CONTACT DERMATITIS What is contact dermatitis? Contact dermatitis is inflammation of the skin (rash) that may result when the skin is touched by irritants or substances that cause an allergic reaction. Contact dermatitis can occur from exposure to many different compounds found both in the home and at work. There are two types of contact dermatitis: 1. Allergic contact dermatitis -- occurs when skin, which has become sensitized to a certain substance (allergen), comes in contact with that substance again 2. Irritant contact dermatitis -- occurs when the skin is exposed to a mild irritant (such as detergent or solvents) repeatedly over a long period of time or a strong irritant (such as acid, alkali, solvent, strong soap or detergent), which can cause immediate skin damage Common sources of allergic contact dermatitis Not everyone reacts to allergens. However, some people will react to an allergen which they had previously tolerated for many years. Skin can become allergic to a substance after many exposures or after just one exposure. Most people will have an allergic reaction to poison freya after one exposure, for instance. This is a delayed skin reaction that typically develops 12 to 72 hours after exposure. Common sources of allergic contact dermatitis include: Nickel (a common metal used in jewelry) and other metals. Nickel has been reported to cause contact dermatitis in up to 10 percent of women. Gold is also becoming a widespread allergen. This type of allergic contact dermatitis can begin with intermittent rashes under earrings or other jewelry. Fragrances -- for example, those found in perfumes, soaps, lotions, and shampoos Cosmetics Topical medications such as antibiotics or anti-itch preparations -- these cause worsening of the problem and are often misinterpreted as infection Preservatives, which keep topical products from spoiling Sunscreens -- commonly cause a hive-like rash that can appear hours or days after sun exposure Rubber ingredients -- common source of work-related allergy. Rubber can cause immediate allergic reactions, such as itching, burning, or welts. Some people experience itching and tearing eyes or even shortness of breath. Common sources of irritant contact dermatitis Detergents, soaps, kettle operator head, waxes and chemicals are substances that can irritate the skin. They can wear down the oily, protective layer on skin's surface and lead to irritant contact dermatitis. Irritant contact dermatitis is most common among people who regularly work with strong chemicals, such as restaurant, maintenance, and chemical workers. Are certain occupations at greater risk? Some occupations have more exposure to chemicals or substances that can result in sensitization and cause allergic contact dermatitis. These include dental workers, health care workers, florists, hairdressers, machinists, and photographers among many others. What are the symptoms of contact dermatitis? Contact dermatitis symptoms can range from mild redness and dryness to severe pain and peeling that can be disabling. Allergic contact dermatitis Reddening of skin (either in patches or all over the body) Intermittent dry, scaly patches of skin Blisters that ooze Burning or itching that is usually intense without visible skin sores (lesions) Swelling in the eyes, face, and genital areas (severe cases) Hives Sun sensitivity Darkened, leathery and cracked skin Allergic contact dermatitis can be very difficult to distinguish from other rashes. Irritant contact dermatitis Mild swelling of skin Stiff, tight feeling skin Dry, cracking skin Blisters Painful ulcers on the skin Symptoms vary depending on the cause of dermatitis. How can I know if I have contact dermatitis? If you have a skin rash that won't go away, visit your health care provider. If he or she suspects allergic contact dermatitis, patch testing may be performed. In this test, small samples of chemicals are placed on an area of skin to see if a rash develops. There are no needles or pricking of the skin. The areas of the skin are then evaluated after 48 hours and again at 96 hours or one week. The advantage of patch testing is that the allergens can be identified and your health care provider can effectively treat the rash. This avoids the need for chronic medications that have many potential side effects. There are no tests that can be done for irritant contact dermatitis. Tell your health care provider about any irritating substances or chemicals that you regularly come into contact with (including cosmetics, lotions, and nail swiss). With either type of contact dermatitis, you can avoid substances you suspect and see if the rash goes away. How is contact dermatitis treated? The form of treatment will depend on the cause of contact dermatitis. Common treatments include: cortisone-type creams, antihistamines, lotions and creams or oatmeal baths (to relieve itching). How can I prevent contact dermatitis? For allergic contact dermatitis: Avoid contact with substances that cause the skin rash. Wash any area that comes into contact with allergic substances. Learn to recognize poison oak and poison freya. For irritant contact dermatitis: Wear cotton gloves under rubber gloves for all wet work. Or, use petroleum jelly to the protect the skin. Reapply the petroleum jelly two or three times a day and after washing your hands. Avoid contact with substances that irritate the skin. Use mild soaps. Use hand creams and lotions frequently. Copyright 2081-6456 The [facility]. All rights reserved This information is provided by the [facility] and is not intended to replace the medical advice of your doctor or health care provider. Please consult your health care provider for advice about a specific medical condition. For additional written health information, please contact the Health Information Center at the [facility] or toll-free extension [phone] or visit [email or web address] This document was last reviewed on: 2005 index#6173 Mani Medina APRN.[facility] Department of Pediatrics [facility] [place] documented in this encounter [facility] 10-23-2024 Telephone encounter Note Pt notified. She verbalized understanding. Jung Ayoub LPN [facility] 10-23-2024 Miscellaneous Notes Pt notified. She verbalized understanding. Jung Ayoub LPN Can please let patient know that I received her ultrasound results. The carotid ultrasound was unchanged and not significant blockages. The thyroid ultrasound continues to show some nodules that we just need to continue to watch. You will need another thyroid ultrasound in a year. It continues to show some enlargement of the right thyroid, but it is less than before. I went ahead and put orders in for some additional thyroid labwork. It looks like she is due for other repeat labwork, as well (fasting lipid and A1C). Please return to get these done. Sakshi Li APRN.CNP documented in this encounter [facility] 10-23-2024 Telephone encounter Note Can please let patient know that I received her ultrasound results. The carotid ultrasound was unchanged and not significant blockages. The thyroid ultrasound continues to show some nodules that we just need to continue to watch. You will need another thyroid ultrasound in a year. It continues to show some enlargement of the right thyroid, but it is less than before. I went ahead and put orders in for some additional thyroid labwork. It looks like she is due for other repeat labwork, as well (fasting lipid and A1C). Please return to get these done. Sakshi Li APRN.CNP [facility] 10-20-2024 History of Present illness Narrative Radiology Service Progress Note PATIENT NAME: Roseann Viveros DATE OF SERVICE: October 20, 2024 TIME: 7:36 AM PATIENT IDENTITY VERIFICATION COMPLETED USING TWO (2) IDENTIFIERS: Name and Date of confirmed by patient verbally. FALL SCREENING: Has the patient had 2 falls in the last year or 1 fall with injury or currently using an Ambulatory Assistive Device (Walker, Cane, Wheelchair, Crutches, etc.)? No PATIENT GENDER DATA: Assigned female at . status: : No status: NO. PATIENT RELEVANT IMPLANT DATA REVIEWED: Not Applicable PATIENT PRESENTS WITH AN IMPLANTABLE OR ATTACHED MANAGER UNIVERSAL: No RADIOLOGY DEPARTMENT: Ultrasound PERIPHERAL IV DATA: Not applicable SIGNED BY: Betsy Fitzpatrick RDMS October 20, 2024 7:36 AM documented in this encounter [facility] 10-20-2024 Note HNO ID: [id number] Author: BETSY FITZPATRICK RDMS Service: ? Author Type: Dialysis Registered Nurse Type: Progress Notes Filed: 10/20/2024 07:36 Note Text: Radiology Service Progress Note PATIENT NAME: Roseann Viveros DATE OF SERVICE: October 20, 2024 TIME: 7:36 AM PATIENT IDENTITY VERIFICATION COMPLETED USING TWO (2) IDENTIFIERS: Name and Date of confirmed by patient verbally. FALL SCREENING: Has the patient had 2 falls in the last year or 1 fall with injury or currently using an Ambulatory Assistive Device (Walker, Cane, Wheelchair, Crutches, etc.)? No PATIENT GENDER DATA: Assigned female at . status: : No status: NO. PATIENT RELEVANT IMPLANT DATA REVIEWED: Not Applicable PATIENT PRESENTS WITH AN IMPLANTABLE OR ATTACHED MANAGER UNIVERSAL: No RADIOLOGY DEPARTMENT: Ultrasound PERIPHERAL IV DATA: Not applicable SIGNED BY: Betsy Fitzpatrick RDMS October 20, 2024 7:36 AM [facility] 09-26-2024 Note HNO ID: [id number] Author: ELEAZAR FRANKS RN Service: ? Author Type: Registered Nurse Type: Progress Notes Filed: 09/26/2024 15:54 Note Text: DIABETES CARE AND EDUCATION VISIT Location: [place] Type of visit: In person individual PATIENT'S MAIN CONCERN TODAY: Newly using insulin Support person present for education today: none Cognitive ability: Alert and oriented Motivation to learn: Interested Learning barriers identified by educator: none Method of instruction: written, verbal, and demonstration DIABETES FINDINGS: Monitoring: Reviewed use of meter, she reports her sugars are typically upper 100s and lower 200s Meal Planning: reviewed the benefits of moderate carb diet Medications: pt states they are currently taking Jardiance and 8 units of Lantus Reducing Risks: benefits of moderating blood sugars to prevent complications HANDOUTS: Healthy You: Survival Skills and Healthy You: Planning Healthy Meals LEARNING RESPONSE: Taking medications: Demonstrated understanding/competency today or at previous visit Monitoring glucose: Demonstrated understanding/competency today or at previous visit POSSIBLE FUTURE TOPICS: 1. DIABETES CARE AND EDUCATION PLAN: Education completed and annual diabetes education follow-up visit recommended Time Spent (Minutes): 30 This visit note will be communicated to the healthcare provider via access to shared medical record. SIGNATURE: Eleazar Franks RN PATIENT NAME: Roseann Viveros DATE: September 26, 2024 TIME: 3:22 PM [facility] 09-26-2024 History of Present illness Narrative DIABETES CARE AND EDUCATION VISIT Location: [place] Type of visit: In person individual PATIENT'S MAIN CONCERN TODAY: Newly using insulin Support person present for education today: none Cognitive ability: Alert and oriented Motivation to learn: Interested Learning barriers identified by educator: none Method of instruction: written, verbal, and demonstration DIABETES FINDINGS: Monitoring: Reviewed use of meter, she reports her sugars are typically upper 100s and lower 200s Meal Planning: reviewed the benefits of moderate carb diet Medications: pt states they are currently taking Jardiance and 8 units of Lantus Reducing Risks: benefits of moderating blood sugars to prevent complications HANDOUTS: Healthy You: Survival Skills and Healthy You: Planning Healthy Meals LEARNING RESPONSE: Taking medications: Demonstrated understanding/competency today or at previous visit Monitoring glucose: Demonstrated understanding/competency today or at previous visit POSSIBLE FUTURE TOPICS: 1. DIABETES CARE AND EDUCATION PLAN: Education completed and annual diabetes education follow-up visit recommended Time Spent (Minutes): 30 This visit note will be communicated to the healthcare provider via access to shared medical record. SIGNATURE: Eleazar Franks RN PATIENT NAME: Roseann Viveros DATE: September 26, 2024 TIME: 3:22 PM documented in this encounter [facility] 09-21-2024 Note HNO ID: [id number] Author: BARBARA BRAN APRN.STAVE SAW OPERATOR Service: ? Author Type: Nurse Practitioner Type: Progress Notes Filed: 09/21/2024 09:20 Note Text: Subjective Roseann Viveros presents to [facility] for a follow up appointment. Since the last visit, Roseann Viveros states the pain has been worse. Current pain intensity is 8 on a scale of 0-10. Pain located in Back area and radiates down the bilateral posterior leg. Pain described as aching, shooting, and throbbing Symptoms interfere with physical activity, work, walking, and sleeping. Pain is exacerbated by getting up from sitting and lying down. Pain is mitigated by medications, ice , and heat. The patient is overall improved with the injections in the past. 50% The medications are effective. The patient states the last dose of . OTC Tylenol was taken this morning. Patient Entered Questionnaires PROMIS Score Percentiles 02/02/2023 PROMIS Global Health Scale Physical Health Percentile 2 Mental Health Percentile 2 02/02/2023 Physical Health Physical Function Percentile 12 Pain Interference Percentile 5 Percentiles provide an indication of how the patient's score ranks in relation to the general population. Higher percentile rankings indicate better function/quality of life. 50th percentile is the average of the general population and indicates half of respondents had a worse score. > 31st percentile is within normal limits or better * < 31st percentile is at least ? SD worse than population, which may be clinically relevant < 16th percentile is at least 1 SD worse than population and warrants attention Review of Systems Constitutional: (-) Weight Gain (-) Weight Loss (+) Fatigue Cardiovascular: (-) hx heart surgery (-) Pacemaker Respiratory: (+) Shortness of Breath (-) Cough (+) Snoring Gastrointestinal: (-) Incontinence (-) Diarrhea (-) Constipation (-) Nausea/Vomiting Endocrine: (-) Thyroid Disorder (+) Diabetes Hematologic: (-) Prolonged Bleeding (+) Easy Bruising Genitourinary: (+) Incontinence (-) Frequency (-) Urinary Urgency Skin: (-) Open sores/wound Neurologic: (+) Headache (+) Double Vision Psychiatric: (+) Depression (+) Anxiety (-) Personal History of Alcohol or Substance Abuse (+) Family History of Alcohol or Substance Abuse Chief Complaint Patient presents with: Back Pain Refill Request Physical Examination Pulse 64 Ht 5' 2 (1.58m) Wt 123 lb 10.9 oz (56.1kg) SpO2 97% LMP 09/01/2010 BMI 22.62 kg/(m2). General:well appearing and alert Skin: Skin color, texture, turgor normal, no rashes or lesions HEENT: normal Cardiovascular: Regular, rate and rhythm Lungs: Normal respiratory rate and rhythm, unlabored on room air Musculoskeletal: Back: Tenderness on palpation over the lumbar spine. , Tenderness over the bilateral lumbar paraspinal muscles Extremities: Normal exam of the extremities Neurological: Mental Status: alert Motor Strength: Motor strength and tone are 5/5 all throughout. Sensory: Not Examined Gait: Antalgic. Trigger points: lumbosacral spine muscles. Assessment Assessment : Encounter Diagnosis ICD-10-CM 1. Degeneration of intervertebral disc of lumbar region with discogenic back pain M51.360 2. Spondylolisthesis of lumbar region M43.16 HYDROcodone-acetaminophen (NORCO) 5-325 mg per tablet 3. Radiculopathy, lumbar region M54.16 HYDROcodone-acetaminophen (NORCO) 5-325 mg per tablet 4. Spinal stenosis of lumbar region with neurogenic claudication M48.062 HYDROcodone-acetaminophen (NORCO) 5-325 mg per tablet 5. DDD (degenerative disc disease), lumbar M51.369 HYDROcodone-acetaminophen (NORCO) 5-325 mg per tablet Patient presents for follow-up visit for medication refills Patient has a history of chronic low back pain that radiates down the bilateral lower extremities to the feet. She reports the left side is worse than the right side She denies numbness tingling and burning She has seen podiatry and they recommended inserts Patient takes Citra and Robaxin do not manage her chronic pain 02/02/2023 PROMIS CAT Pain Interference PROMIS Pain Interference T-Score (range: 10 - 90) 66 (moderate) PROMIS Pain Interference Percentile 5 PROMIS Adult Short Form-Global Health Score (Mental) 28.4 (Poor) OARRS Report: Reviewed: The patient's OARRS report was reviewed and is consistent with the reported medication use. Plan Injection history was reviewed. Medication use and compliance were reviewed. 1. Continue medication management through the [facility] 2. The following approved medication requests have been transmitted electronically. Requested Prescriptions Signed Prescriptions Disp Refills HYDROcodone-acetaminophen (NORCO) 5-325 mg per tablet 28 tablet 0 Sig: Take 1-2 tablets by mouth every 6 hours as needed for up to 7 days. (more content not included)... [facility] 09-21-2024 History of Present illness Narrative Images from the original note were not included. Subjective Roseann Viveros presents to [facility] for a follow up appointment. Since the last visit, Roseann Viveros states the pain has been worse. Current pain intensity is 8 on a scale of 0-10. Pain located in Back area and radiates down the bilateral posterior leg. Pain described as aching, shooting, and throbbing Symptoms interfere with physical activity, work, walking, and sleeping. Pain is exacerbated by getting up from sitting and lying down. Pain is mitigated by medications, ice , and heat. The patient is overall improved with the injections in the past. 50% The medications are effective. The patient states the last dose of . OTC Tylenol was taken this morning. Patient Entered Questionnaires PROMIS Score Percentiles 02/02/2023 PROMIS Global Health Scale Physical Health Percentile 2 Mental Health Percentile 2 02/02/2023 Physical Health Physical Function Percentile 12 Pain Interference Percentile 5 Percentiles provide an indication of how the patient's score ranks in relation to the general population. Higher percentile rankings indicate better function/quality of life. 50th percentile is the average of the general population and indicates half of respondents had a worse score. > 31st percentile is within normal limits or better * < 31st percentile is at least SD worse than population, which may be clinically relevant < 16th percentile is at least 1 SD worse than population and warrants attention Review of Systems Constitutional: (-) Weight Gain (-) Weight Loss (+) Fatigue Cardiovascular: (-) hx heart surgery (-) Pacemaker Respiratory: (+) Shortness of Breath (-) Cough (+) Snoring Gastrointestinal: (-) Incontinence (-) Diarrhea (-) Constipation (-) Nausea/Vomiting Endocrine: (-) Thyroid Disorder (+) Diabetes Hematologic: (-) Prolonged Bleeding (+) Easy Bruising Genitourinary: (+) Incontinence (-) Frequency (-) Urinary Urgency Skin: (-) Open sores/wound Neurologic: (+) Headache (+) Double Vision Psychiatric: (+) Depression (+) Anxiety (-) Personal History of Alcohol or Substance Abuse (+) Family History of Alcohol or Substance Abuse Chief Complaint Patient presents with: Back Pain Refill Request Physical Examination Pulse 64 Ht 5' 2 (1.58m) Wt 123 lb 10.9 oz (56.1kg) SpO2 97% LMP 09/01/2010 BMI 22.62 kg/(m^2). General:well appearing and alert Skin: Skin color, texture, turgor normal, no rashes or lesions HEENT: normal Cardiovascular: Regular, rate and rhythm Lungs: Normal respiratory rate and rhythm, unlabored on room air Musculoskeletal: Back: Tenderness on palpation over the lumbar spine. , Tenderness over the bilateral lumbar paraspinal muscles Extremities: Normal exam of the extremities Neurological: Mental Status: alert Motor Strength: Motor strength and tone are 5/5 all throughout. Sensory: Not Examined Gait: Antalgic. Trigger points: lumbosacral spine muscles. Assessment Assessment : Encounter Diagnosis ICD-10-CM 1. Degeneration of intervertebral disc of lumbar region with discogenic back pain M51.360 2. Spondylolisthesis of lumbar region M43.16 HYDROcodone-acetaminophen (NORCO) 5-325 mg per tablet 3. Radiculopathy, lumbar region M54.16 HYDROcodone-acetaminophen (NORCO) 5-325 mg per tablet 4. Spinal stenosis of lumbar region with neurogenic claudication M48.062 HYDROcodone-acetaminophen (NORCO) 5-325 mg per tablet 5. DDD (degenerative disc disease), lumbar M51.369 HYDROcodone-acetaminophen (NORCO) 5-325 mg per tablet Patient presents for follow-up visit for medication refills Patient has a history of chronic low back pain that radiates down the bilateral lower extremities to the feet. She reports the left side is worse than the right side She denies numbness tingling and burning She has seen podiatry and they recommended inserts Patient takes Citra and Robaxin do not manage her chronic pain 02/02/2023 PROMIS CAT Pain Interference PROMIS Pain Interference T-Score (range: 10 - 90) 66 (moderate) PROMIS Pain Interference Percentile 5 PROMIS Adult Short Form-Global Health Score (Mental) 28.4 (Poor) OARRS Report: Reviewed: The patient's OARRS report was reviewed and is consistent with the reported medication use. Plan Injection history was reviewed. Medication use and compliance were reviewed. 1. Continue medication management through the [facility] 2. The following approved medication requests have been transmitted electronically. Requested Prescriptions Signed Prescriptions Disp Refills HYDROcodone-acetaminophen (NORCO) 5-325 mg per tablet 28 tablet 0 Sig: Take 1-2 tablets by mouth every 6 hours as needed for up to 7 days. methocarbamol (ROBAXIN-750) 750 mg tablet 90 tablet 2 Sig: Take 1 tablet by mouth three times a day as needed. 3. Interventional procedure options discussed. None at this time 4. Encouraged regular home exercise program. 5) F/U in 3 months The level of medical decision making for this encounter was low level. I spent a total of 25 minutes on the date of the service which included preparing to see the patient, [id number] patient care, completing clinical documentation, performing a medically appropriate examination, and ordering medications, tests, or procedures. 1. This document has been created with the use of voice recognition technology. It may contain inaccuracies: (e.g. misspellings, inaccurate syntax or word sense) that have escaped review. 2. The physician, nursing staff and medical assistants are a major part of YOUR TREATMENT TEAM and will be handling your phone calls and inquiries, if any. Unless explicitly told otherwise at the time of your office visit, your study results and ensuing treatment plans will be discussed during your follow-up appointment. If you do not have a follow-up appointment and wish to discuss any issues, please set up an appointment. 3. It is my practice to not fill disability or any other insurance-related forms/documentation. All of the office notes, study results, and other pertinent documentation generated as part of your evaluation will be available to you and to your Primary Care Physician (PCP). Use of this material to complete such forms will be at the discretion of your PCP/referring physician. The above plan and management options were discussed at length with patient. Patient is in agreement with the above and verbalized understanding. Barbara Bran APRN, CNP September 21, 2024 documented in this encounter [facility] 09-18-2024 Note HNO ID: [id number] Author: TRACY SAUER MD Service: ? Author Type: Physician Type: Progress Notes Filed: 09/18/2024 16:41 Note Text: Tracy Sauer MD Interventional Cardiology [address] [place] [address] [phone] Chief Complaint Patient presents with: Follow Up: 6 month follow up HISTORY OF PRESENT ILLNESS: Ms. Viveros is a 59 year old female seen in my office today for assessment management of her coronary artery disease patient had moderate disease involve the circumflex history of hyperlipidemia hypertension and diabetes mellitus with chronic kidney disease She does have exertional dyspnea on extreme exertion but regular activity induced no symptoms nuclear stress test shows no evidence of ischemia On appropriate medical therapy Cardiac Risk Factors age (male over 45, female over 55), hyperlipidemia, diabetes, hypertension, family history of CAD PAST MEDICAL HISTORY Diagnosis Date Anxiety 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 08/31/2016 Depression Diabetes mellitus (HCC) 2011 No nephropathy, neuropathy, retinopathy DJD (degenerative joint disease) of lumbar spine Hyperlipidemia 2011 Low back pain [id number] Unspecified , without mention of complication, unspecified 2 Miscarriage's PAST SURGICAL HISTORY Procedure Laterality Date DELIVERY ONLY , low cervical, (2) DILATION AND CURETTAGE DXAND/THER NONOBSTETRIC Dilation AND curettage x 2 LIGATE FALLOPIAN TUBE 2002 NEUROPLASTY AND/TRANSPOS MEDIAN NRV CARPAL TUNNE Bilateral 09/18/2016 THYROID FINE NEEDLE ASPIRATION Right 07/07/2021 THYROID FINE NEEDLE ASPIRATION 08/01/2021 TONSILLECTOMY AND ADENOIDECTOMY FAMILY HISTORY Problem Relation Age of Onset Diabetes Mother Heart Mother Cataract Mother Emphysema Father Cancer Father other (Kidney Failure) Father Arthritis Paternal Aunt Arthritis Paternal Grandmother Hands Social History Tobacco Use Smoking status: Former Current packs/day: 0.00 Average packs/day: 0.3 packs/day for 20.0 years (6.0 ttl pk-yrs) Types: Cigarettes Start date: 03/24/2003 Quit date: 03/24/2023 Years since quittin.4 Smokeless tobacco: Never Tobacco comments: TRYING TO QUIT-SMOKES 1-2 A DAY as of 11/28/15 Vaping Use Vaping status: current everyday user Substances: Nicotine, Flavoring Devices: Disposable Substance Use Topics Alcohol use: Not Currently Comment: Quit 2001 Drug use: Not Currently Types: Marijuana ALLERGIES Allergen Reactions Bees Bee Venom Protein (* Unknown, Swelling Medications: Current Outpatient Medications Medication Sig Dispense Refill insulin glargine (LANTUS SOLOSTAR U-100 INSULIN) 100 unit/mL (3 mL) Inject 8 Units subcutaneously every 24 hours. 15 mL 0 Insulin [place]ma, Disposable, (PEN NEEDLE) 32 gauge x 5/32 Inject 1 Each subcutaneously every 24 hours. Give with each insulin administration. 100 Each 3 blood sugar diagnostic (TRUE METRIX GLUCOSE TEST STRIP) test strip testing once daily DX E11.9 Insulin No 200 Strip 2 albuterol HFA (PROVENTIL HFA, VENTOLIN HFA) 90 mcg/actuation inhaler Inhale 2 Puffs as instructed every 6 hours as needed for wheezing/shortness of breath. 18 g 1 aspirin, enteric coated (ASPIRIN, ENTERIC COATED) 81 mg EC tablet Take 1 tablet by mouth once daily. 90 tablet 3 isosorbide mononitrate ER (IMDUR) 30 mg 24 hr tablet Take 1 tablet by mouth once daily. Take w/ 60 mg tablet for total daily dose of 90 mg. 90 tablet 3 isosorbide mononitrate ER (IMDUR) 60 mg 24 hr tablet Take 1 tablet by mouth once daily. Take w/ 30 mg tablet for total daily dose of 90 mg. 90 tablet 3 meclizine (ANTIVERT) 25 mg tab Take 1 tablet by mouth three times a day as needed. 90 tablet 1 Lancets Test blood sugar(s) One time daily. Dx: Type 2 DM - Controlled E11.9 Insulin: No. 100 Each 11 blood sugar diagnostic (BLOOD GLUCOSE TEST) test strip Test blood sugar(s) 1 times daily. Dx: Type 2 DM - Controlled E11.9 Insulin: No 50 Strip 11 famotidine (PEPCID) 20 mg tablet Take 1 tablet by mouth two times a day. 180 tablet 3 atorvastatin (LIPITOR) 80 mg tablet Take 1 tablet by mouth once daily. 90 tablet 3 calcium-cholecalciferol, D3, (OSCAL+D 250) 250 mg-3.125 mcg (125 unit) per tablet Take 1 tablet by mouth two times a day. 60 tablet 11 Cholecalciferol, Vitamin D3, 25 mcg (1,000 unit) cap Take 1 capsule by mouth once daily. 30 capsule 11 empagliflozin (JARDIANCE) 10 mg tablet Take 1 tablet by mouth daily with breakfast. 90 tablet 3 sertraline (ZOLOFT) 100 mg tablet Take 1 tablet by mouth once daily. 90 tablet 3 atenolol (TENORMIN) 50 mg tablet Take 1 tablet by mouth once daily. 90 tablet 3 linaGLIPtin (TRADJENTA) 5 mg tab Take 1 tablet by mouth once daily. 90 tablet 3 buPROPion XL (WELLBUTRIN XL) 150 mg 24 hr tablet Take 1 tablet by mouth once daily. 90 tablet 3 Blood Pressure (more content not included)... [facility] 09-18-2024 History of Present illness Narrative Images from the original note were not included. Tracy Sauer MD Interventional Cardiology [address] [place], [place] [id number] [phone] Chief Complaint Patient presents with: Follow Up: 6 month follow up HISTORY OF PRESENT ILLNESS: Ms. Viveros is a 59 year old female seen in my office today for assessment management of her coronary artery disease patient had moderate disease involve the circumflex history of hyperlipidemia hypertension and diabetes mellitus with chronic kidney disease She does have exertional dyspnea on extreme exertion but regular activity induced no symptoms nuclear stress test shows no evidence of ischemia On appropriate medical therapy Cardiac Risk Factors age (male over 45, female over 55), hyperlipidemia, diabetes, hypertension, family history of CAD PAST MEDICAL HISTORY Diagnosis Date Anxiety 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 08/31/2016 Depression Diabetes mellitus (HCC) 2010 No nephropathy, neuropathy, retinopathy DJD (degenerative joint disease) of lumbar spine Hyperlipidemia 2011 Low back pain [id number] Unspecified , without mention of complication, unspecified 2 Miscarriage's PAST SURGICAL HISTORY Procedure Laterality Date DELIVERY ONLY , low cervical, (2) DILATION & CURETTAGE DX&/THER NONOBSTETRIC Dilation & curettage x 2 LIGATE FALLOPIAN TUBE 2002 NEUROPLASTY &/TRANSPOS MEDIAN NRV CARPAL TUNNE Bilateral 09/18/2016 THYROID FINE NEEDLE ASPIRATION Right 07/07/2021 THYROID FINE NEEDLE ASPIRATION 08/01/2021 TONSILLECTOMY & ADENOIDECTOMY <AGE 12 FAMILY HISTORY Problem Relation Age of Onset Diabetes Mother Heart Mother Cataract Mother Emphysema Father Cancer Father other (Kidney Failure) Father Arthritis Paternal Aunt Arthritis Paternal Grandmother Hands Social History Tobacco Use Smoking status: Former Current packs/day: 0.00 Average packs/day: 0.3 packs/day for 20.0 years (6.0 ttl pk-yrs) Types: Cigarettes Start date: 03/24/2003 Quit date: 03/24/2023 Years since quittin.4 Smokeless tobacco: Never Tobacco comments: TRYING TO QUIT-SMOKES 1-2 A DAY as of 11/28/15 Vaping Use Vaping status: current everyday user Substances: Nicotine, Flavoring Devices: Disposable Substance Use Topics Alcohol use: Not Currently Comment: Quit 2001 Drug use: Not Currently Types: Marijuana ALLERGIES Allergen Reactions Bees Bee Venom Protein (* Unknown, Swelling Medications: Current Outpatient Medications Medication Sig Dispense Refill insulin glargine (LANTUS SOLOSTAR U-100 INSULIN) 100 unit/mL (3 mL) Inject 8 Units subcutaneously every 24 hours. 15 mL 0 Insulin [place]ma, Disposable, (PEN NEEDLE) 32 gauge x 5/32 Inject 1 Each subcutaneously every 24 hours. Give with each insulin administration. 100 Each 3 blood sugar diagnostic (TRUE METRIX GLUCOSE TEST STRIP) test strip testing once daily DX E11.9 Insulin No 200 Strip 2 albuterol HFA (PROVENTIL HFA, VENTOLIN HFA) 90 mcg/actuation inhaler Inhale 2 Puffs as instructed every 6 hours as needed for wheezing/shortness of breath. 18 g 1 aspirin, enteric coated (ASPIRIN, ENTERIC COATED) 81 mg EC tablet Take 1 tablet by mouth once daily. 90 tablet 3 isosorbide mononitrate ER (IMDUR) 30 mg 24 hr tablet Take 1 tablet by mouth once daily. Take w/ 60 mg tablet for total daily dose of 90 mg. 90 tablet 3 isosorbide mononitrate ER (IMDUR) 60 mg 24 hr tablet Take 1 tablet by mouth once daily. Take w/ 30 mg tablet for total daily dose of 90 mg. 90 tablet 3 meclizine (ANTIVERT) 25 mg tab Take 1 tablet by mouth three times a day as needed. 90 tablet 1 Lancets Test blood sugar(s) One time daily. Dx: Type 2 DM - Controlled E11.9 Insulin: No. 100 Each 11 blood sugar diagnostic (BLOOD GLUCOSE TEST) test strip Test blood sugar(s) 1 times daily. Dx: Type 2 DM - Controlled E11.9 Insulin: No 50 Strip 11 famotidine (PEPCID) 20 mg tablet Take 1 tablet by mouth two times a day. 180 tablet 3 atorvastatin (LIPITOR) 80 mg tablet Take 1 tablet by mouth once daily. 90 tablet 3 calcium-cholecalciferol, D3, (OSCAL+D 250) 250 mg-3.125 mcg (125 unit) per tablet Take 1 tablet by mouth two times a day. 60 tablet 11 Cholecalciferol, Vitamin D3, 25 mcg (1,000 unit) cap Take 1 capsule by mouth once daily. 30 capsule 11 empagliflozin (JARDIANCE) 10 mg tablet Take 1 tablet by mouth daily with breakfast. 90 tablet 3 sertraline (ZOLOFT) 100 mg tablet Take 1 tablet by mouth once daily. 90 tablet 3 atenolol (TENORMIN) 50 mg tablet Take 1 tablet by mouth once daily. 90 tablet 3 linaGLIPtin (TRADJENTA) 5 mg tab Take 1 tablet by mouth once daily. 90 tablet 3 buPROPion XL (WELLBUTRIN XL) 150 mg 24 hr tablet Take 1 tablet by mouth once daily. 90 tablet 3 Blood Pressure Monitor Use as directed, Monitor and arm cuff. Dx: I25.119, N18.30, I.10 1 Kit 0 nitroglycerin sublingual (NITROQUICK) 0.4 mg SL tablet DISSOLVE 1 (ONE) TABLET UNDER THE TONGUE NEEDED FOR CHEST PAIN. MAY REPEAT EVERY 5 MINUTES IF NEEDED; MAX OF 3 DOSES. IF NO RELIEF, COURTNEY 25 tablet 3 predniSONE (DELTASONE) 10 mg tablet Day #1 - 6 tablets PO then Day #2 - 5 tablets PO then Day #3 - 4 tablets PO then Day #4 - 3 tablets PO then Day #5 - 2 tablets PO then Day #6 - 1 tablet PO (Patient not taking: Reported on 09/04/2024) 21 tablet 0 No current facility-administered medications for this visit. Review of Systems Constitutional: Negative for chills, diaphoresis, fever, malaise/fatigue and weight loss. HENT: Negative for congestion, ear discharge, ear pain, hearing loss, nosebleeds, sinus pain, sore throat and tinnitus. Eyes: Negative for blurred vision, double vision, photophobia, pain, discharge and redness. Respiratory: Positive for shortness of breath. Negative for cough, hemoptysis, sputum production, wheezing and stridor. Cardiovascular: Negative for chest pain, palpitations, orthopnea, claudication, leg swelling and PND. Gastrointestinal: Negative for abdominal pain, blood in stool, constipation, diarrhea, heartburn, melena, nausea and vomiting. Genitourinary: Negative for dysuria, flank pain, frequency, hematuria and urgency. Musculoskeletal: Negative for back pain, falls, joint pain, myalgias and neck pain. Skin: Negative for itching and rash. Neurological: Negative for dizziness, tingling, tremors, sensory change, speech change, focal weakness, seizures, loss of consciousness, weakness and headaches. Endo/Heme/Allergies: Negative for environmental allergies and polydipsia. Does not bruise/bleed easily. Psychiatric/Behavioral: Negative for depression, hallucinations, memory loss, substance abuse and suicidal ideas. The patient is not nervous/anxious and does not have insomnia. Physical Examination: Vitals:BP 102/62 Pulse 60 Resp 12 Ht 5' 2 (1.58m) Wt 125 lb (56.7kg) SpO2 95% LMP 09/01/2010 BMI 22.86 kg/(m^2). BP w/Orthostatic Vitals Date and Time Orthostatic BP Orthostatic Pulse BP Pulse BP Position BP Site BP Cuff Size 09/18/24 1434 -- -- 102/62 60 Sitting Right Arm Regular Adult Peak Flow Date and Time PF Resp 09/18/24 1434 -- 12 Last 2 Encounter Wt Readings: Date: Wt: 09/18/2024 125 lb (56.7 kg) 09/15/2024 126 lb 3.2 oz (57.2 kg) Physical Exam Constitutional: General: She is not in acute distress. Appearance: She is not diaphoretic. HENT: Head: Normocephalic and atraumatic. Right Ear: External ear normal. Left Ear: External ear normal. Nose: Nose normal. Mouth/Throat: Pharynx: Oropharynx is clear. Eyes: General: Right eye: No discharge. Left eye: No discharge. Conjunctiva/sclera: Conjunctivae normal. Pupils: Pupils are equal, round, and reactive to light. Cardiovascular: Rate and Rhythm: Normal rate and regular rhythm. Heart sounds: Normal heart sounds, S1 normal and S2 normal. No murmur heard. No friction rub. No gallop. No S3 or S4 sounds. Pulmonary: Effort: Pulmonary effort is normal. No respiratory distress. Breath sounds: Normal breath sounds. No wheezing or rales. Chest: Chest wall: No tenderness. Abdominal: General: Abdomen is flat. Musculoskeletal: General: Normal range of motion. Cervical back: Normal range of motion and neck supple. Skin: General: Skin is warm and dry. Neurological: Mental Status: She is alert and oriented to person, place, and time. Psychiatric: Mood and Affect: Mood normal. Thought Content: Thought content normal. Pertinent Labs: CBC: Hemoglobin (g/dL) Date Value 02/07/2024 13.3 06/18/2021 12.6 Hematocrit (%) Date Value 02/07/2024 41.2 06/18/2021 39.0 WBC (k/uL) Date Value 02/07/2024 6.67 06/18/2021 7.03 Platelet Count (k/uL) Date Value 02/07/2024 212 06/18/2021 252 BMP: Glucose (mg/dL) Date Value 08/02/2024 300 06/18/2021 125 Potassium (mmol/L) Date Value 08/02/2024 4.2 06/18/2021 4.3 Sodium (mmol/L) Date Value 08/02/2024 134 06/18/2021 139 Chloride (mmol/L) Date Value 08/02/2024 97 06/18/2021 103 CO2 (mmol/L) Date Value 08/02/2024 23 06/18/2021 25 Creatinine (mg/dL) Date Value 08/02/2024 1.28 06/18/2021 1.33 BUN (mg/dL) Date Value 08/02/2024 11 06/18/2021 11 Anion Gap (mmol/L) Date Value 08/02/2024 14 06/18/2021 11 Calcium (mg/dL) Date Value 06/18/2021 10.2 Calcium, Total (mg/dL) Date Value 08/02/2024 10.1 INR: Lipid Profile: Total Cholesterol, Nonfasting Date Value Ref Range Status 08/02/2024 251 (H) <200 mg/dL Final Comment: <200 mg/dL, Desirable 200-239 mg/dL, Borderline high >239 mg/dL, High HDL Cholesterol, Nonfasting Date Value Ref Range Status 08/02/2024 42 >39 mg/dL Final Comment: 40-59 mg/dL, Acceptable >59 mg/dL, High: Negative risk factor for coronary heart disease <40 mg/dL, Low: Positive risk factor for coronary heart disease LDL Cholesterol Date Value Ref Range Status 06/10/2023 82 <100 mg/dL Final Comment: <100 mg/dL, Optimal 100-129 mg/dL, Near optimal/above optimal 130-159 mg/dL, Borderline high 160-189 mg/dL, High >189 mg/dL, Very high Secondary prevention optimal LDL Cholesterol levels are recommended to be < 70 mg/dL Triglycerides, Nonfasting Date Value Ref Range Status 08/02/2024 660 (H) <150 mg/dL Final Comment: <150 mg/dL, Normal 150-199 mg/dL, Borderline high 200-499 mg/dL, High >499 mg/dL, Very high Hemoglobin A1C: No results found for: HGBA1C TSH: No results found for: TSHREFL Prior Cardiac Testing none Assessment and Plan: 59 years old female patient with moderate coronary artery disease with hypertensive heart disease ASSESSMENT/PLAN: 1. Primary hypertension - ICD9: 401.9, ICD10: I10 (primary diagnosis) - Controlled 2. Coronary artery disease, unspecified vessel or lesion type, unspecified whether angina present, unspecified whether [place] or transplanted heart - ICD9: 414.00, ICD10: I25.10 Tracy Sauer MD Follow up plannin MONTHS Electronically signed by rTacy Sauer MD on September 18, 2024, 4:36 PM The above note was partially created using a dictation recognition software. A reasonable attempt has been made to correct any errors. documented in this encounter [facility] 09-18-2024 Instructions Silvio Cook - 09/18/2024 1:36 PM EDT Powerstep Original Full length. Can purchase at [facility] [employer] and boots,shoes and more here in [place], [employer] in [place] or [place]. Also can find in [place] in [facility]. Powersteps can also be purchased online, starting around $45.00 If you have a metatarsal or dancer pad for your feet apply the pad directly to the insole so you can interchange between your shoes. Find a shoe with a removable insole and take this out and replace with your powerstep insole. Always bring powersteps with you when shopping for shoes so that you can make sure that everything fits well together Diabetes Foot Care Instructions When you have diabetes, proper foot care is very important. Poor foot care may lead to amputation of a foot or leg. As a person with diabetes, you are more vulnerable to foot problems, because diabetes can damage your nerves and reduce blood flow to your feet. Here are some diabetes foot care tips to follow: Wash and Dry Your Feet Daily Use mild soaps Use warm water Pat your skin dry; do not rub. Thoroughly dry your feet. After washing, use lotion on your feet to prevent cracking. Do not put lotion between your toes. Examine Your Feet Each Day Check the tops and bottoms of your feet. Have someone else look at your feet if you cannot see them. Check for dry, cracked skin. Look for blisters, cuts, scratches, or other sores. Check for redness, increased warmth, or tenderness when touching any area of your feet. Check for ingrown toenails, corns, and calluses. If you get a blister or sore from your shoes, do not pop it. Apply a bandage and wear a different pair of shoes. Take Care of Your Toenails Cut toenails after bathing, when they are soft. Cut toenails straight across and smooth with a nail file. Avoid cutting into the corners of toes. Do not cut cuticles. If you have neuropathy (or decreased sensation in your feet) a head of partner development should always cut your toenails. Be Careful When Exercising Walk and exercise in comfortable shoes. Do not exercise when you have open sores on your feet. Protect Your Feet With Shoes and Socks Never go barefoot. Always protect your feet by wearing shoes or hard-soled slippers or footwear. Avoid shoes with high heels and pointed toes. Avoid shoes that expose your toes or heels (such as open-toed shoes or sandals). These types of shoes increase your risk for injury and potential infections. Try on new footwear with the type of socks you usually wear. Do not wear new shoes for more than an hour at a time. Change your socks daily. Look and feel inside your shoes before putting them on to make sure there are no foreign objects or rough areas. Avoid tight socks. Wear natural-fiber socks (cotton, wool, or a cotton-wool blend). Wear special shoes if your health care provider recommends them. Wear shoes/boots that will protect your feet from various weather conditions (cold, moisture, etc.). Make sure your shoes fit properly. If you have neuropathy (nerve damage), you may not notice that your shoes are too tight. Perform the footwear test described below. Footwear Test Use this simple test to see if your shoes fit correctly: Stand on a piece of paper. (Make sure you are standing and not sitting, because your foot changes shape when you stand.) Trace the outline of your foot. Trace the outline of your shoe. Compare the tracings: Is the shoe too narrow? Is your foot crammed into the shoe? The shoe should be at least 1/2 inch longer than your longest toe and as wide as your foot. Proper Shoe Choices The following types of shoes are best for people with diabetes Closed toes and heels Leather uppers without a seam inside At least 1/2 inch extra space at the end of your longest toe Inside of shoe should be soft with no rough areas Outer sole should be made of stiff material Shoes should be at least as wide as your feet Tips for Foot Care in Diabetes Don't wait to treat a minor foot problem if you have diabetes. Follow your health care provider's guidelines and first aid guidelines. Report foot injuries and infections to your health care provider immediately. Check water temperature with your elbow, not your foot. Do not use a heating pad on your feet. Do not cross your legs. Do not self-treat your corns, calluses, or other foot problems. Go to your health care provider or head of partner development to treat these conditions. documented in this encounter [facility] 09-18-2024 Note HNO ID: [id number] Author: SILVIO COOK, ? Service: ? Author Type: Physician Type: Progress Notes Filed: 09/18/2024 15:27 Note Text: Consultation requested by Dr. Ventura for an opinion regarding diabetic foot exam. My final recommendations will be communicated back to the requesting physician by way of shared Medical record or letter to requesting physician via [place] mail. Initial Office Visit Subjective: This 59 year old female presents to clinic for diabetic foot check. Patient has the following complaints: Nail fungus. She complains of thick, dystrophic toenails that have been this way for several years. Has tried over the counter fungal nail medication but that does not help. She states the nails will cause her pain at times. Bunion of b/l feet. She denies any pain Patient admits to being diabetic for 22 years now. Patient -B/T/N in feet at this time. Patient -pain in legs when walking. No other pedal complaints at this time. No change in medications or medical history since last visit. PAIN EVALUATION No data found in the last 1 encounters. Hemoglobin A1C (%) Date Value 08/02/2024 10.0 02/07/2024 7.6 06/10/2023 5.8 02/13/2022 7.3 06/18/2021 6.7 02/18/2021 7.7 07/06/2020 7.2 12/27/2018 6.5 07/05/2018 6.4 PCP: Garrett Ventura MD PAST MEDICAL HISTORY Diagnosis Date Anxiety 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 08/31/2016 Depression Diabetes mellitus (HCC) 2010 No nephropathy, neuropathy, retinopathy DJD (degenerative joint disease) of lumbar spine Hyperlipidemia 2011 Low back pain [id number] Unspecified , without mention of complication, unspecified 2 Miscarriage's Current Outpatient Medications Medication Sig insulin glargine (LANTUS SOLOSTAR U-100 INSULIN) 100 unit/mL (3 mL) Inject 8 Units subcutaneously every 24 hours. Insulin [place], Disposable, (PEN NEEDLE) 32 gauge x 5/32 Inject 1 Each subcutaneously every 24 hours. Give with each insulin administration. blood sugar diagnostic (TRUE METRIX GLUCOSE TEST STRIP) test strip testing once daily DX E11.9 Insulin No albuterol HFA (PROVENTIL HFA, VENTOLIN HFA) 90 mcg/actuation inhaler Inhale 2 Puffs as instructed every 6 hours as needed for wheezing/shortness of breath. aspirin, enteric coated (ASPIRIN, ENTERIC COATED) 81 mg EC tablet Take 1 tablet by mouth once daily. isosorbide mononitrate ER (IMDUR) 30 mg 24 hr tablet Take 1 tablet by mouth once daily. Take w/ 60 mg tablet for total daily dose of 90 mg. isosorbide mononitrate ER (IMDUR) 60 mg 24 hr tablet Take 1 tablet by mouth once daily. Take w/ 30 mg tablet for total daily dose of 90 mg. meclizine (ANTIVERT) 25 mg tab Take 1 tablet by mouth three times a day as needed. Lancets Test blood sugar(s) One time daily. Dx: Type 2 DM - Controlled E11.9 Insulin: No. blood sugar diagnostic (BLOOD GLUCOSE TEST) test strip Test blood sugar(s) 1 times daily. Dx: Type 2 DM - Controlled E11.9 Insulin: No famotidine (PEPCID) 20 mg tablet Take 1 tablet by mouth two times a day. predniSONE (DELTASONE) 10 mg tablet Day #1 - 6 tablets PO then Day #2 - 5 tablets PO then Day #3 - 4 tablets PO then Day #4 - 3 tablets PO then Day #5 - 2 tablets PO then Day #6 - 1 tablet PO (Patient not taking: Reported on 09/04/2024) atorvastatin (LIPITOR) 80 mg tablet Take 1 tablet by mouth once daily. calcium-cholecalciferol, D3, (OSCAL+D 250) 250 mg-3.125 mcg (125 unit) per tablet Take 1 tablet by mouth two times a day. Cholecalciferol, Vitamin D3, 25 mcg (1,000 unit) cap Take 1 capsule by mouth once daily. empagliflozin (JARDIANCE) 10 mg tablet Take 1 tablet by mouth daily with breakfast. sertraline (ZOLOFT) 100 mg tablet Take 1 tablet by mouth once daily. atenolol (TENORMIN) 50 mg tablet Take 1 tablet by mouth once daily. linaGLIPtin (TRADJENTA) 5 mg tab Take 1 tablet by mouth once daily. buPROPion XL (WELLBUTRIN XL) 150 mg 24 hr tablet Take 1 tablet by mouth once daily. nitroglycerin sublingual (NITROQUICK) 0.4 mg SL tablet DISSOLVE 1 (ONE) TABLET UNDER THE TONGUE NEEDED FOR CHEST PAIN. MAY REPEAT EVERY 5 MINUTES IF NEEDED; MAX OF 3 DOSES. IF NO RELIEF, COURTNEY Blood Pressure Monitor Use as directed, Monitor and arm cuff. Dx: I25.119, N18.30, I.10 No current facility-administered medications for this visit. ALLERGIES Allergen Reactions Bees Bee Venom Protein (* Unknown, Swelling PAST SURGICAL HISTORY Procedure Laterality Date DELIVERY ONLY , low cervical, (2) DILATION AND CURETTAGE DXAND/THER NONOBSTETRIC Dilation AND curettage x 2 LIGATE FALLOPIAN TUBE 2001 NEUROPLASTY AND/TRANSPOS MEDIAN NRV CARPAL TUNNE Bilateral 09/18/2016 THYROID FINE NEEDLE ASPIRATION Right 07/07/2021 THYROID FINE NEEDLE ASPIRATION 08/01/2021 TONSILLECTOMY AND ADENOIDECTOMY FAMILY HISTORY Problem Relation Age of Onset Diabetes Mother Heart Mother Catarac (more content not included)... [facility] 09-18-2024 History of Present illness Narrative Consultation requested by Dr. Ventura for an opinion regarding diabetic foot exam. My final recommendations will be communicated back to the requesting physician by way of shared Medical record or letter to requesting physician via [place] mail. Initial Office Visit Subjective: This 59 year old female presents to clinic for diabetic foot check. Patient has the following complaints: Nail fungus. She complains of thick, dystrophic toenails that have been this way for several years. Has tried over the counter fungal nail medication but that does not help. She states the nails will cause her pain at times. Bunion of b/l feet. She denies any pain Patient admits to being diabetic for 22 years now. Patient -B/T/N in feet at this time. Patient -pain in legs when walking. No other pedal complaints at this time. No change in medications or medical history since last visit. PAIN EVALUATION No data found in the last 1 encounters. Hemoglobin A1C (%) Date Value 08/02/2024 10.0 02/07/2024 7.6 06/10/2023 5.8 02/13/2022 7.3 06/18/2021 6.7 02/18/2021 7.7 07/06/2020 7.2 12/27/2018 6.5 07/05/2018 6.4 PCP: Garrett Ventura MD PAST MEDICAL HISTORY Diagnosis Date Anxiety 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 08/31/2016 Depression Diabetes mellitus (HCC) 2010 No nephropathy, neuropathy, retinopathy DJD (degenerative joint disease) of lumbar spine Hyperlipidemia 2011 Low back pain [id number] Unspecified , without mention of complication, unspecified 2 Miscarriage's Current Outpatient Medications Medication Sig insulin glargine (LANTUS SOLOSTAR U-100 INSULIN) 100 unit/mL (3 mL) Inject 8 Units subcutaneously every 24 hours. Insulin [place], Disposable, (PEN NEEDLE) 32 gauge x 5/32 Inject 1 Each subcutaneously every 24 hours. Give with each insulin administration. blood sugar diagnostic (TRUE METRIX GLUCOSE TEST STRIP) test strip testing once daily DX E11.9 Insulin No albuterol HFA (PROVENTIL HFA, VENTOLIN HFA) 90 mcg/actuation inhaler Inhale 2 Puffs as instructed every 6 hours as needed for wheezing/shortness of breath. aspirin, enteric coated (ASPIRIN, ENTERIC COATED) 81 mg EC tablet Take 1 tablet by mouth once daily. isosorbide mononitrate ER (IMDUR) 30 mg 24 hr tablet Take 1 tablet by mouth once daily. Take w/ 60 mg tablet for total daily dose of 90 mg. isosorbide mononitrate ER (IMDUR) 60 mg 24 hr tablet Take 1 tablet by mouth once daily. Take w/ 30 mg tablet for total daily dose of 90 mg. meclizine (ANTIVERT) 25 mg tab Take 1 tablet by mouth three times a day as needed. Lancets Test blood sugar(s) One time daily. Dx: Type 2 DM - Controlled E11.9 Insulin: No. blood sugar diagnostic (BLOOD GLUCOSE TEST) test strip Test blood sugar(s) 1 times daily. Dx: Type 2 DM - Controlled E11.9 Insulin: No famotidine (PEPCID) 20 mg tablet Take 1 tablet by mouth two times a day. predniSONE (DELTASONE) 10 mg tablet Day #1 - 6 tablets PO then Day #2 - 5 tablets PO then Day #3 - 4 tablets PO then Day #4 - 3 tablets PO then Day #5 - 2 tablets PO then Day #6 - 1 tablet PO (Patient not taking: Reported on 09/04/2024) atorvastatin (LIPITOR) 80 mg tablet Take 1 tablet by mouth once daily. calcium-cholecalciferol, D3, (OSCAL+D 250) 250 mg-3.125 mcg (125 unit) per tablet Take 1 tablet by mouth two times a day. Cholecalciferol, Vitamin D3, 25 mcg (1,000 unit) cap Take 1 capsule by mouth once daily. empagliflozin (JARDIANCE) 10 mg tablet Take 1 tablet by mouth daily with breakfast. sertraline (ZOLOFT) 100 mg tablet Take 1 tablet by mouth once daily. atenolol (TENORMIN) 50 mg tablet Take 1 tablet by mouth once daily. linaGLIPtin (TRADJENTA) 5 mg tab Take 1 tablet by mouth once daily. buPROPion XL (WELLBUTRIN XL) 150 mg 24 hr tablet Take 1 tablet by mouth once daily. nitroglycerin sublingual (NITROQUICK) 0.4 mg SL tablet DISSOLVE 1 (ONE) TABLET UNDER THE TONGUE NEEDED FOR CHEST PAIN. MAY REPEAT EVERY 5 MINUTES IF NEEDED; MAX OF 3 DOSES. IF NO RELIEF, COURTNEY Blood Pressure Monitor Use as directed, Monitor and arm cuff. Dx: I25.119, N18.30, I.10 No current facility-administered medications for this visit. ALLERGIES Allergen Reactions Bees Bee Venom Protein (* Unknown, Swelling PAST SURGICAL HISTORY Procedure Laterality Date DELIVERY ONLY , low cervical, (2) DILATION & CURETTAGE DX&/THER NONOBSTETRIC Dilation & curettage x 2 LIGATE FALLOPIAN TUBE 2001 NEUROPLASTY &/TRANSPOS MEDIAN NRV CARPAL TUNNE Bilateral 09/18/2016 THYROID FINE NEEDLE ASPIRATION Right 07/07/2021 THYROID FINE NEEDLE ASPIRATION 08/01/2021 TONSILLECTOMY & ADENOIDECTOMY <AGE 12 FAMILY HISTORY Problem Relation Age of Onset Diabetes Mother Heart Mother Cataract Mother Emphysema Father Cancer Father other (Kidney Failure) Father Arthritis Paternal Aunt Arthritis Paternal Grandmother Hands Social History Tobacco Use Smoking status: Former Current packs/day: 0.00 Average packs/day: 0.3 packs/day for 20.0 years (6.0 ttl pk-yrs) Types: Cigarettes Start date: 03/24/2003 Quit date: 03/24/2023 Years since quittin.4 Smokeless tobacco: Never Tobacco comments: TRYING TO QUIT-SMOKES 1-2 A DAY as of 11/28/15 Vaping Use Vaping status: current everyday user Substances: Nicotine, Flavoring Devices: Disposable Substance Use Topics Alcohol use: Not Currently Comment: Quit 2001 Drug use: Not Currently Types: Marijuana REVIEW OF SYSTEMS GENERAL: Negative for Malaise, significant weight loss, fever RESPIRATORY: Negative for cough, wheezing and shortness of breath CARDIOVASCULAR: Negative for chest pain, leg swelling and palpitations GI: Negative for abdominal discomfort, blood in stools or black stools and change in bowel habits : Negative for dysuria, frequency and incontinence MUSCULOSKELETAL: Negative for joint pain or swelling, back pain, and muscle pain. SKIN: Negative for lesions, rash, and itching. HEMATOLOGY/LYMPHOLOGY Negative for prolonged bleeding, bruising easily, and swollen nodes. ENDOCRINE: Negative for cold or heat intolerance, polyuria, polydipsia and goiter. NEURO: negative The remainder of the review of systems is noncontributory. Objective: Patient presents to clinic ambulating in sketchers Constitutional: Pt is a well developed 59 year old female who is alert, oriented, cooperative and in no apparent distress. Eyes: Following during examination. No redness or drainage. Respiratory: RR normal and nonlabored. Even breathing. No evidence of distress. Psychology: Patient is engaged during conversation. Normal affect and mood. Does not appear depressed or anxious. Vasc: DP and PT pulses are palpable bilateral. CFT is less than 5 seconds bilateral. Skin temperature is warm to warm proximal to distal bilateral. There is no edema or varicosities noted. Hair growth present. Neuro: Protective sensation is intact to the foot and toes when tested with the 5.07 SWM bilateral. Vibratory sensation is slightly decreased at the hallux bilateral. + Significant neurological defecits. Derm: Inspection and palpation performed. Nails 1-5 b/l are discolored-yellow, thick, crumbly, dystrophic and with subungal debris. Skin is of normal turgor and texture. Hyperkeratosis noted to b/l first metatarsal NO ulcerations, scars, verruca or other lesions noted. Ortho: Ankle joint DF is full with the knee extended and full with knee flexed. No pain or crepitus noted. STJ, MTJ ROM are full and free of pain or crepitus. Muscle strength is 5/5 for dorsiflexors, plantarflexors, inverters, everters. Digital deformities include bunion. Assessment: (B35.1) Onychomycosis (M21.619) Bunion (L84) Callus diabetes Plan: 1. Patient was seen and evaluated. 2. Patient was instructed on the continued importance of diabetic foot care along with proper diet and keeping their blood sugar under control to prevent complications. I stressed the importance of avoiding barefoot walking, wearing good shoes and inspection of feet. I discussed how this patient suffers from neuropathy and that it is important that she monitor for any open wounds. If she develops any issues, she is to contact our office immediately and we will have them seen. Instructions given both oral and written. 3. We discussed the possible etiologies of discolored, dystrophic, and thickened nails including fungus, yeast, mold as well as in some instances, prior trauma, or mechanical causes such as repetitive microtrauma in shoe gear. We discussed topical medication for discolored toenails which has very low success but no major side effects. We discussed oral medication. Patient will need hepatic testing prior to use. Patient informed of risks associated with Lamisil. We discussed removal of toenails. Patient would like to proceed with possible oral medication pending fungal culture. Fungal culture obtained. 4. Discussed bunion of b/l feet. Recommend wider shoes and will provide inserts. 5. Callus was reduced with dremmel. Silvio Cook DPM AMB ROOMING INTAKE FLOWSHEET DATA Patient presents with: Left Foot - New, Diabetic Foot Care, Nail Fungus, Derm Problem Right Foot - New, Diabetic Foot Care, Nail Fungus, Derm Problem Alicia Jenkins LPN documented in this encounter [facility] 09-18-2024 Note HNO ID: [id number] Author: ALICIA JENKINS LPN Service: ? Author Type: LICENSED NURSE Type: Progress Notes Filed: 09/18/2024 15:27 Note Text: AMB ROOMING INTAKE FLOWSHEET DATA Patient presents with: Left Foot - New, Diabetic Foot Care, Nail Fungus, Derm Problem Right Foot - New, Diabetic Foot Care, Nail Fungus, Derm Problem Alicia Jenkins LPN [facility] 09-15-2024 Instructions Daksha Anton MD - 09/15/2024 1:47 PM EDT - Start taking insulin as prescribed: 8 units daily. Your prescription has been sent to your pharmacy - Can continue jardiance and Tradjenta for now at same doses - Check your blood sugar levels at least twice daily, varying the times- Always check fasting blood sugar in the morning. Alternate the second check between before lunch, before dinner, and before bedtime. Bring glucose log on next visit - Obtain additional test strips for your Trumetrix glucose meter. - Schedule and attend diabetes education sessions to learn more about managing your condition. - Make dietary changes to help control blood sugar levels: - Reduce intake of high-carb foods like waffles, spaghetti, and sugary drinks. - Increase protein intake to help stabilize blood sugar levels. - Stay physically active by incorporating more movement into your daily routine. - Follow up with your eye doctor for a check-up, especially if it's been a year since your last visit. - Monitor for symptoms of urinary tract infections or yeast infections while on Jardiance documented in this encounter [facility] 09-15-2024 Note HNO ID: [id number] Author: DAKSHA ANTON MD Service: ? Author Type: Physician Type: Progress Notes Filed: 09/15/2024 18:20 Note Text: [facility] Initial Clinic Visit Note Referred by: Dr. Garrett Ventura MD (PCP) Chief complaint: Poorly controlled Type 2 DM My final recommendations will be communicated back to the requesting physician by way of shared medical record or letter via US mail. History of Present Illness: Roseann Viveros is a 59-year-old female with a history of DM, HTN, HLD, lumbar stenosis, and CKD, presenting for DM management. -Initially diagnosed: 22 years ago, following the of her youngest child. Denied any surgeries on pancreas, pancreatitis in the past . Symptoms No recent weight loss; desires weight reduction. Reports polyuria; suspects current yeast infection with dysuria and pruritus. Complications: Cardiovascular -- Yes HTN, HLP, CAD Has a follow-up appointment with a extractions technologist on Wednesday to discuss potential cardiac catheterization due to dyspnea. Statin Use -- yes atorvastatin 80 mg daily Retinopathy -- no Last PRATEEK/Retina Eval: Last eye exam approximately one year ago; reports no retinopathy- underwent laser surgery on both eyes, improving vision. Nephropathy -- CKD stage 3b NEPTALI/ARB Use -- no Polyneuropathy -- Occasional paresthesia in feet; no recent episodes. Foot Exam: none - was referred to podiatry Obesity -- No Other -- No -Family history of diabetes mellitus: in mother () and brother (complicated by open heart surgery and hypoglycemic car accident). Personal history of DKA or HHS-- No Personal history of pancreatitis-- No History of alcohol consumption--No Family history of thyroid cancer-- No Personal history of Urinary tract infections -- Reports polyuria; suspects current yeast infection with dysuria and pruritus. Diabetic education class: never . Diabetes Medications -Current regimen: Tradjenta 5 mg and Jardiance 10 mg. -Misses doses: None -Adverse medication effects: none Reports being scared of needles, and does not prefer using insulin -Previously Used DM Meds: Yes Metformin - was on it for almost 20 years, had no side effects, was discontinued Glimepiride- d/cd due to unknown reasons per patient . Blood sugars -Self monitoring of blood sugar via fingerstick: once daily, sometimes twice if levels exceed 200 mg/dL. Considers blood glucose levels above 200 mg/dL as high and below 70-75 mg/dL as low. -Brought blood glucose log for review: No -BG log reviewed: no . Hypoglycemia -Hypoglycemic episodes: no recent episodes -Frequency and timing of hypoglycemia: N/A -Hypoglycemia awareness: yes, feels diaphoretic Manages high blood glucose with crackers and low blood glucose with candy. . 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 -Diet: Breakfast: Lunch: Dinner: Typically eats one to two meals per day, often skipping breakfast. ROS: SYSTEMIC: Denies fatigue, malaise, energy, Weight has been stable, heat/cold intolerance, polydipsia EYES: Denies blurring of vision, diplopia, pain/discomfort, excessive tearing, swelling of eye lids, bulging, redness, dryness, NECK: Denies goiter, lump, pain/discomfort, dysphagia, hoarseness, sore thorat RESPIRATORY: Denies dyspnea at rest/with exertion, orthopnea cough, pleuritic chest pain, snoring, apnea episodes CARDIOVASCULAR: Chest pain, palpitations, irregular heart beats GASTRO-INTESTINAL:Denies Nausea, vomiting, abdominal pain, hyperdefecation, rectal bleeding NEUROLOGICAL: Denies dizziness, lightheadedness, weakness, cramping, numbness/tingling of extremities MUSCULOSKELETAL: Denies joint pain, stiffness, swelling, cramping or weakness. GENITOURINARY: Denies polyuria, recurrent UTI/yeast infections SKIN: Denies dryness, brittle nails, hair loss, alopecia, excessive sweating, flushing, darkening of skin PSYCHIATRIC: Denies anxiety, depression, panic attacks, irritability, mood swings Past Medical History PAST MEDICAL HISTORY Diagnosis Date Anxiety 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 08/31/2016 Depression Diabetes mellitus (HCC) 2010 No nephropathy, neuropathy, retinopathy DJD (degenerative joint disease) of lumbar spine Hyperlipidemia 2011 Low back pain [id number] Unspecified , without mention of complication, unspecified 2 Miscarriage's Past Surgical History PAST SURGICAL HISTORY Procedure Laterality Date DELIVERY ONLY , low cervical, (2) DILATION AND CURETTAGE DXAND/THER NONOBSTETRIC Dilation AND curettage x 2 LIGATE FALLOPIAN TUBE 2002 NEUROPLASTY AND/TRANSPOS MEDIAN NRV CARPAL TUNNE Bilateral 09/18/2016 THYROID FINE NEEDLE ASPIRATION Right 07/07/2021 THYROID FINE NEEDLE ASPIRATION 08/01/2021 T (more content not included)... [facility] 09-15-2024 History of Present illness Narrative [facility] Initial Clinic Visit Note Referred by: Dr. Garrett Ventura MD (PCP) Chief complaint: Poorly controlled Type 2 DM My final recommendations will be communicated back to the requesting physician by way of shared medical record or letter via [place] mail. History of Present Illness: Roseann Viveros is a 59-year-old female with a history of DM, HTN, HLD, lumbar stenosis, and CKD, presenting for DM management. -Initially diagnosed: 22 years ago, following the of her youngest child. Denied any surgeries on pancreas, pancreatitis in the past . Symptoms No recent weight loss; desires weight reduction. Reports polyuria; suspects current yeast infection with dysuria and pruritus. Complications: Cardiovascular -- Yes HTN, HLP, CAD Has a follow-up appointment with a extractions technologist on Wednesday to discuss potential cardiac catheterization due to dyspnea. Statin Use -- yes atorvastatin 80 mg daily Retinopathy -- no Last PRATEEK/Retina Eval: Last eye exam approximately one year ago; reports no retinopathy- underwent laser surgery on both eyes, improving vision. Nephropathy -- CKD stage 3b NEPTALI/ARB Use -- no Polyneuropathy -- Occasional paresthesia in feet; no recent episodes. Foot Exam: none - was referred to podiatry Obesity -- No Other -- No -Family history of diabetes mellitus: in mother () and brother (complicated by open heart surgery and hypoglycemic car accident). Personal history of DKA or HHS-- No Personal history of pancreatitis-- No History of alcohol consumption--No Family history of thyroid cancer-- No Personal history of Urinary tract infections -- Reports polyuria; suspects current yeast infection with dysuria and pruritus. Diabetic education class: never . Diabetes Medications -Current regimen: Tradjenta 5 mg and Jardiance 10 mg. -Misses doses: None -Adverse medication effects: none Reports being scared of needles, and does not prefer using insulin -Previously Used DM Meds: Yes Metformin - was on it for almost 20 years, had no side effects, was discontinued Glimepiride- d/cd due to unknown reasons per patient . Blood sugars -Self monitoring of blood sugar via fingerstick: once daily, sometimes twice if levels exceed 200 mg/dL. Considers blood glucose levels above 200 mg/dL as high and below 70-75 mg/dL as low. -Brought blood glucose log for review: No -BG log reviewed: no . Hypoglycemia -Hypoglycemic episodes: no recent episodes -Frequency and timing of hypoglycemia: N/A -Hypoglycemia awareness: yes, feels diaphoretic Manages high blood glucose with crackers and low blood glucose with candy. . 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 -Diet: Breakfast: Lunch: Dinner: Typically eats one to two meals per day, often skipping breakfast. ROS: SYSTEMIC: Denies fatigue, malaise, energy, Weight has been stable, heat/cold intolerance, polydipsia EYES: Denies blurring of vision, diplopia, pain/discomfort, excessive tearing, swelling of eye lids, bulging, redness, dryness, NECK: Denies goiter, lump, pain/discomfort, dysphagia, hoarseness, sore thorat RESPIRATORY: Denies dyspnea at rest/with exertion, orthopnea cough, pleuritic chest pain, snoring, apnea episodes CARDIOVASCULAR: Chest pain, palpitations, irregular heart beats GASTRO-INTESTINAL:Denies Nausea, vomiting, abdominal pain, hyperdefecation, rectal bleeding NEUROLOGICAL: Denies dizziness, lightheadedness, weakness, cramping, numbness/tingling of extremities MUSCULOSKELETAL: Denies joint pain, stiffness, swelling, cramping or weakness. GENITOURINARY: Denies polyuria, recurrent UTI/yeast infections SKIN: Denies dryness, brittle nails, hair loss, alopecia, excessive sweating, flushing, darkening of skin PSYCHIATRIC: Denies anxiety, depression, panic attacks, irritability, mood swings Past Medical History PAST MEDICAL HISTORY Diagnosis Date Anxiety 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 08/31/2016 Depression Diabetes mellitus (HCC) 2010 No nephropathy, neuropathy, retinopathy DJD (degenerative joint disease) of lumbar spine Hyperlipidemia 2011 Low back pain [id number] Unspecified , without mention of complication, unspecified 2 Miscarriage's Past Surgical History PAST SURGICAL HISTORY Procedure Laterality Date DELIVERY ONLY , low cervical, (2) DILATION & CURETTAGE DX&/THER NONOBSTETRIC Dilation & curettage x 2 LIGATE FALLOPIAN TUBE 2002 NEUROPLASTY &/TRANSPOS MEDIAN NRV CARPAL TUNNE Bilateral 09/18/2016 THYROID FINE NEEDLE ASPIRATION Right 07/07/2021 THYROID FINE NEEDLE ASPIRATION 08/01/2021 TONSILLECTOMY & ADENOIDECTOMY <AGE 12 Family History FAMILY HISTORY Problem Relation Age of Onset Diabetes Mother Heart Mother Cataract Mother Emphysema Father Cancer Father other (Kidney Failure) Father Arthritis Paternal Aunt Arthritis Paternal Grandmother Hands Social History Social History Tobacco Use Smoking status: Former Current packs/day: 0.00 Average packs/day: 0.3 packs/day for 20.0 years (6.0 ttl pk-yrs) Types: Cigarettes Start date: 03/24/2003 Quit date: 03/24/2023 Years since quittin.4 Smokeless tobacco: Never Tobacco comments: TRYING TO QUIT-SMOKES 1-2 A DAY as of 11/28/15 Vaping Use Vaping status: current everyday user Substances: Nicotine, Flavoring Devices: Disposable Substance Use Topics Alcohol use: Not Currently Comment: Quit 2001 Drug use: Not Currently Types: Marijuana Allergies ALLERGIES Allergen Reactions Bees Bee Venom Protein (* Unknown, Swelling Current Medications Current Outpatient Medications Medication Sig Dispense Refill albuterol HFA (PROVENTIL HFA, VENTOLIN HFA) 90 mcg/actuation inhaler Inhale 2 Puffs as instructed every 6 hours as needed for wheezing/shortness of breath. 18 g 1 aspirin, enteric coated (ASPIRIN, ENTERIC COATED) 81 mg EC tablet Take 1 tablet by mouth once daily. 90 tablet 3 isosorbide mononitrate ER (IMDUR) 30 mg 24 hr tablet Take 1 tablet by mouth once daily. Take w/ 60 mg tablet for total daily dose of 90 mg. 90 tablet 3 isosorbide mononitrate ER (IMDUR) 60 mg 24 hr tablet Take 1 tablet by mouth once daily. Take w/ 30 mg tablet for total daily dose of 90 mg. 90 tablet 3 meclizine (ANTIVERT) 25 mg tab Take 1 tablet by mouth three times a day as needed. 90 tablet 1 Lancets Test blood sugar(s) One time daily. Dx: Type 2 DM - Controlled E11.9 Insulin: No. 100 Each 11 blood sugar diagnostic (BLOOD GLUCOSE TEST) test strip Test blood sugar(s) 1 times daily. Dx: Type 2 DM - Controlled E11.9 Insulin: No 50 Strip 11 famotidine (PEPCID) 20 mg tablet Take 1 tablet by mouth two times a day. 180 tablet 3 atorvastatin (LIPITOR) 80 mg tablet Take 1 tablet by mouth once daily. 90 tablet 3 calcium-cholecalciferol, D3, (OSCAL+D 250) 250 mg-3.125 mcg (125 unit) per tablet Take 1 tablet by mouth two times a day. 60 tablet 11 Cholecalciferol, Vitamin D3, 25 mcg (1,000 unit) cap Take 1 capsule by mouth once daily. 30 capsule 11 empagliflozin (JARDIANCE) 10 mg tablet Take 1 tablet by mouth daily with breakfast. 90 tablet 3 sertraline (ZOLOFT) 100 mg tablet Take 1 tablet by mouth once daily. 90 tablet 3 atenolol (TENORMIN) 50 mg tablet Take 1 tablet by mouth once daily. 90 tablet 3 linaGLIPtin (TRADJENTA) 5 mg tab Take 1 tablet by mouth once daily. 90 tablet 3 buPROPion XL (WELLBUTRIN XL) 150 mg 24 hr tablet Take 1 tablet by mouth once daily. 90 tablet 3 nitroglycerin sublingual (NITROQUICK) 0.4 mg SL tablet DISSOLVE 1 (ONE) TABLET UNDER THE TONGUE NEEDED FOR CHEST PAIN. MAY REPEAT EVERY 5 MINUTES IF NEEDED; MAX OF 3 DOSES. IF NO RELIEF, COURTNEY 25 tablet 3 blood sugar diagnostic (TRUE METRIX GLUCOSE TEST STRIP) test strip testing once daily DX E11.9 Insulin No 50 Strip 5 Blood Pressure Monitor Use as directed, Monitor and arm cuff. Dx: I25.119, N18.30, I.10 1 Kit 0 predniSONE (DELTASONE) 10 mg tablet Day #1 - 6 tablets PO then Day #2 - 5 tablets PO then Day #3 - 4 tablets PO then Day #4 - 3 tablets PO then Day #5 - 2 tablets PO then Day #6 - 1 tablet PO (Patient not taking: Reported on 09/04/2024) 21 tablet 0 No current facility-administered medications for this visit. Vitals: 09/15/24 1306 BP: 88/54 BP Site: Right Arm BP Position: Sitting BP Cuff Size: Regular Adult Pulse: 66 Temp: 36.4 C (97.6 F) TempSrc: Temporal Artery SpO2: 96% Weight: 57.2 kg (126 lb 3.2 oz) Physical Exam GENERAL: Well nourished, obese, well hydrated, in no distress and oriented x 3 EYES: no thyroid eye signs, EOMI NECK: , no tenderness and adenopathy THYROID: Non-tender to palpable, no evidence of goiter, no nodules palpable LUNGS: Unlabored on room air HEART: regular rate and rhythm GI: deferred EXTREMITIES: no edema NEURO: normal strength, no tremor, monofilament testing with normal sensations today, but has onychomycosis OTHER: Acanthosis None Labs Hemoglobin A1C Date Value Ref Range Status 08/02/2024 10.0 (H) 4.3 - 5.6 % Final Comment: [place] [employer] guidelines indicate that patients with HgbA1c in the range 5.7-6.4% are at increased risk for development of diabetes, and intervention by lifestyle modification may be beneficial. HgbA1c greater or equal to 6.5% is considered diagnostic of diabetes. Albumin/Creat Ratio Date Value Ref Range Status 08/02/2024 <23 <30 mg/g Final Comment: Adult Male and Female Nephrotic Criteria: <30 mg/g is considered normal to mildly increased 30-300 mg/g is considered moderately increased >300 mg/g is considered severely increased KDIGO. (2013). KDIGO 2012 Clinical Practice Guideline for the Evaluation and Management of Chronic Kidney Disease. Official Journal of the International Society of Nephrology, 3(1), 1-150. Total Cholesterol, Nonfasting Date Value Ref Range Status 08/02/2024 251 (H) <200 mg/dL Final Comment: <200 mg/dL, Desirable 200-239 mg/dL, Borderline high >239 mg/dL, High HDL Cholesterol, Nonfasting Date Value Ref Range Status 08/02/2024 42 >39 mg/dL Final Comment: 40-59 mg/dL, Acceptable >59 mg/dL, High: Negative risk factor for coronary heart disease <40 mg/dL, Low: Positive risk factor for coronary heart disease LDL Cholesterol Date Value Ref Range Status 06/10/2023 82 <100 mg/dL Final Comment: <100 mg/dL, Optimal 100-129 mg/dL, Near optimal/above optimal 130-159 mg/dL, Borderline high 160-189 mg/dL, High >189 mg/dL, Very high Secondary prevention optimal LDL Cholesterol levels are recommended to be < 70 mg/dL Triglycerides, Nonfasting Date Value Ref Range Status 08/02/2024 660 (H) <150 mg/dL Final Comment: <150 mg/dL, Normal 150-199 mg/dL, Borderline high 200-499 mg/dL, High >499 mg/dL, Very high Vitamin D 25 Hydroxy (ng/mL) Date Value 09/22/2023 43.3 06/10/2023 39.8 04/08/2022 82.2 03/16/2022 20.5 Latest Ref Rng 07/06/2020 02/18/2021 06/18/2021 02/13/2022 06/10/2023 02/07/2024 08/02/2024 Hemoglobin A1C 4.3 - 5.6 % 7.2 (H) 7.7 (H) 6.7 (H) 7.3 (H) 5.8 (H) 7.6 (H) 10.0 (H) Estimated Average Glucose mg/dL 160 174 146 163 120 171 240 Legend: (H) High Assessment and Plan Poorly controled type 2 DM: -A1c 10% in 07/2024 -eGFR 48 on 08/02/2024 -Current regimen: Jardiance 10 mg daily, Tradjenta 5 mg daily - reviewed pathophysiology of hyperglycemia on insulin levels and resistance, discussed about starting insulin might be a better plan due to contraindications to full dose of some medications. Discussed discontinuing insulin later if possible when sugars improve . Discussed can use metformin on a half dose regimen with close monitoring of kidney function, or BATES with no effect on kidney function but slightly high risk of hypoglycemia. She is okay with doing insulin Plan: - start lantus 8 units daily - Continue Jardiance 10 mg daily, Tradjenta 5 mg daily -Instructed on side effects - hypoglycemia treatment reviewed. Also reviewed that high blood sugars will not get better with crackers - discussed seeing diabetes education, referral placed -Check blood sugar twice daily (fasting daily and second time alternating each day with prelunch, predinner, and bedtime BG) so glycemic control can be assessed at various times points in the day- advised bringing glucose log on next visit, log book given - we discussed about CGM, but she is worried she will not be able to afford it, so we decided to do -Lifestyle modifications (diet, exercise) have been discussed with the patient briefly - advised follow up for eye exam - podiatry follow up recommended for fungal infections in toe - advised avoiding dehydration- she had low BP today in office Uptodate: [place] components of routine care for people with diabetes mellitus Reviewed ABCs of diabetes management (respective goals in parentheses): A1C (<7), blood pressure (<140/90), and cholesterol (LDL <100). Reviewed: medications, MOA, timing and changes. Reviewed goals to complete prior to next visit. Health maintenance: BP: 88/54 - Creatinine, GFR: 1.28, 48 (07/2023) - Liver enzymes AST, ALT: 14, 17 (01/2024) - Lipids: LDL unable to calculate due to high TG 660, total cholesterol 251 - Urine microalbumin: <23 - Thyroid: TSH No recent record - Feet: today - Eyes: one year ago, no retinopathy as reported #Dyslipidemia # CAD -Con atorvastatin 80 mg daily, aspirin- follows cardiology Scripts sent to pharmacy of pt choice: Yes RTC in 2 months I have confirmed and edited as necessary, the past medical, surgical, family, and social history as obtained by others. Medical Decision Making: Problems: High: Chronic illness with severe change Data: Unique test result(s) reviewed: 3+ Independent interpretation of test from other physician/QHCP Risk: Moderate: Drug management Medical Decision Making Level: 5 - High Daksha Anton MD Endocrinology Associate Staff [facility] Endocrinology and Metabolism [place] [phone] documented in this encounter [facility] 09-04-2024 Note HNO ID: [id number] Author: MARIE PETE MA Service: ? Author Type: Automatic Machines Supervisor Type: Progress Notes Filed: 09/25/2024 22:11 Note Text: PT ASSESSMENT - CASTING ROOM Roseann presents for Application of brace. Applied small Rhizo Forte brace to Bilateral hands. Patient has been instructed in Care of brace. Marie Pete MA [facility] 09-04-2024 History of Present illness Narrative PT ASSESSMENT - CASTING ROOM Roseann presents for Application of brace. Applied small Rhizo Forte brace to Bilateral hands. Patient has been instructed in Care of brace. Marie Pete MA Luis Menendez MD Department of Orthopaedics Orthopaedics [address] [facility] [address] Dept: [phone] Dept September 04, 2024 CHIEF COMPLAINT: New and Pain of the Right Hand HPI Patient here today for right middle trigger finger. Finger is clicking and locking for approximately 3 weeks now. She is right hand dominant. Does not work outside the home. ASSESSMENT: M79.641, M79.642 Pain in both hands M65.331 Trigger middle finger of right hand PLAN: We reviewed the different options for a finger tendonitis. Injection vs. Trigger release. FOLLOW UP INSTRUCTIONS: As needed. OBJECTIVE: Ms. Roseann Viveros is a pleasant 59 year old in no apparent distress. Gen:LMP 09/01/2010 nl development, non obese, no deformities ENT: Normocephalic, normal hearing, moist mucosa CV: Pulses:Radial= 2+ and symmetric, capillary refill < 2 secs, no peripheral edema/varicosities Skin: no rash, bruising or lesions. Good turgor. Psych: cooperative and appropriate, alert and oriented x 3, good mood and affect. Musculoskeletal: Mild TTP at the A1 sharon. No locking, mild catching at this time. IMAGING: Deferred. 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 (HCC) 08/31/2016 Depression Diabetes mellitus (HCC) 2010 No nephropathy, neuropathy, retinopathy DJD (degenerative joint disease) of lumbar spine Hyperlipidemia 2011 Low back pain [id number] Unspecified , without mention of complication, unspecified 2 Miscarriage's Past Surgical History: PAST SURGICAL HISTORY Procedure Laterality Date DELIVERY ONLY , low cervical, (2) DILATION & CURETTAGE DX&/THER NONOBSTETRIC Dilation & curettage x 2 LIGATE FALLOPIAN TUBE 2001 NEUROPLASTY &/TRANSPOS MEDIAN NRV CARPAL TUNNE Bilateral 09/18/2016 THYROID FINE NEEDLE ASPIRATION Right 07/07/2021 THYROID FINE NEEDLE ASPIRATION 08/01/2021 TONSILLECTOMY & ADENOIDECTOMY <AGE 12 Family History: FAMILY HISTORY Problem Relation Age of Onset Diabetes Mother Heart Mother Cataract Mother Emphysema Father Cancer Father other (Kidney Failure) Father Arthritis Paternal Aunt Arthritis Paternal Grandmother Hands Social History: Social History Tobacco Use Smoking status: Former Current packs/day: 0.00 Average packs/day: 0.3 packs/day for 20.0 years (6.0 ttl pk-yrs) Types: Cigarettes Start date: 03/24/2003 Quit date: 03/24/2023 Years since quittin.4 Smokeless tobacco: Never Tobacco comments: TRYING TO QUIT-SMOKES 1-2 A DAY as of 11/28/15 Vaping Use Vaping status: current everyday user Substances: Nicotine, Flavoring Devices: Disposable Substance Use Topics Alcohol use: Not Currently Comment: Quit 2001 Drug use: Not Currently Types: Marijuana Medications: Current Outpatient Medications Medication Sig albuterol HFA (PROVENTIL HFA, VENTOLIN HFA) 90 mcg/actuation inhaler Inhale 2 Puffs as instructed every 6 hours as needed for wheezing/shortness of breath. aspirin, enteric coated (ASPIRIN, ENTERIC COATED) 81 mg EC tablet Take 1 tablet by mouth once daily. isosorbide mononitrate ER (IMDUR) 30 mg 24 hr tablet Take 1 tablet by mouth once daily. Take w/ 60 mg tablet for total daily dose of 90 mg. isosorbide mononitrate ER (IMDUR) 60 mg 24 hr tablet Take 1 tablet by mouth once daily. Take w/ 30 mg tablet for total daily dose of 90 mg. meclizine (ANTIVERT) 25 mg tab Take 1 tablet by mouth three times a day as needed. famotidine (PEPCID) 20 mg tablet Take 1 tablet by mouth two times a day. atorvastatin (LIPITOR) 80 mg tablet Take 1 tablet by mouth once daily. calcium-cholecalciferol, D3, (OSCAL+D 250) 250 mg-3.125 mcg (125 unit) per tablet Take 1 tablet by mouth two times a day. Cholecalciferol, Vitamin D3, 25 mcg (1,000 unit) cap Take 1 capsule by mouth once daily. empagliflozin (JARDIANCE) 10 mg tablet Take 1 tablet by mouth daily with breakfast. sertraline (ZOLOFT) 100 mg tablet Take 1 tablet by mouth once daily. atenolol (TENORMIN) 50 mg tablet Take 1 tablet by mouth once daily. linaGLIPtin (TRADJENTA) 5 mg tab Take 1 tablet by mouth once daily. buPROPion XL (WELLBUTRIN XL) 150 mg 24 hr tablet Take 1 tablet by mouth once daily. Lancets Test blood sugar(s) One time daily. Dx: Type 2 DM - Controlled E11.9 Insulin: No. blood sugar diagnostic (BLOOD GLUCOSE TEST) test strip Test blood sugar(s) 1 times daily. Dx: Type 2 DM - Controlled E11.9 Insulin: No predniSONE (DELTASONE) 10 mg tablet Day #1 - 6 tablets PO then Day #2 - 5 tablets PO then Day #3 - 4 tablets PO then Day #4 - 3 tablets PO then Day #5 - 2 tablets PO then Day #6 - 1 tablet PO (Patient not taking: Reported on 09/04/2024) nitroglycerin sublingual (NITROQUICK) 0.4 mg SL tablet DISSOLVE 1 (ONE) TABLET UNDER THE TONGUE NEEDED FOR CHEST PAIN. MAY REPEAT EVERY 5 MINUTES IF NEEDED; MAX OF 3 DOSES. IF NO RELIEF, COURTNEY blood sugar diagnostic (TRUE METRIX GLUCOSE TEST STRIP) test strip testing once daily DX E11.9 Insulin No Blood Pressure Monitor Use as directed, Monitor and arm cuff. Dx: I25.119, N18.30, I.10 No current facility-administered medications for this visit. Allergies: Bees and Bee Venom Protein (Honey Bee) ROS: General (negative for fatigue, malaise, weight loss/gain) HEENT (negative for headache, earache, recent vision changes, sinus pain, sore throat) Respiratory (no recent shortness of breath, hemoptysis) CV (negative for chest tightness, palpitations) Musculoskeletal (see HPI) Luis Menendez MD documented in this encounter [facility] 09-04-2024 Note HNO ID: [id number] Author: LUIS MENENDEZ MD Service: ? Author Type: Physician Type: Progress Notes Filed: 09/25/2024 22:11 Note Text: Luis Menendez MD Department of Orthopaedics Orthopaedics [address] [facility] [address] Dept: [phone] Dept September 04, 2024 CHIEF COMPLAINT: New and Pain of the Right Hand HPI Patient here today for right middle trigger finger. Finger is clicking and locking for approximately 3 weeks now. She is right hand dominant. Does not work outside the home. ASSESSMENT: M79.641, M79.642 Pain in both hands M65.331 Trigger middle finger of right hand PLAN: We reviewed the different options for a finger tendonitis. Injection vs. Trigger release. FOLLOW UP INSTRUCTIONS: As needed. OBJECTIVE: Ms. Roseann Viveros is a pleasant 59 year old in no apparent distress. Gen:LMP 09/01/2010 nl development, non obese, no deformities ENT: Normocephalic, normal hearing, moist mucosa CV: Pulses:Radial= 2+ and symmetric, capillary refill < 2 secs, no peripheral edema/varicosities Skin: no rash, bruising or lesions. Good turgor. Psych: cooperative and appropriate, alert and oriented x 3, good mood and affect. Musculoskeletal: Mild TTP at the A1 sharon. No locking, mild catching at this time. IMAGING: Deferred. 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 (HCC) 08/31/2016 Depression Diabetes mellitus (HCC) 2010 No nephropathy, neuropathy, retinopathy DJD (degenerative joint disease) of lumbar spine Hyperlipidemia 2011 Low back pain [id number] Unspecified , without mention of complication, unspecified 2 Miscarriage's Past Surgical History: PAST SURGICAL HISTORY Procedure Laterality Date DELIVERY ONLY , low cervical, (2) DILATION AND CURETTAGE DXAND/THER NONOBSTETRIC Dilation AND curettage x 2 LIGATE FALLOPIAN TUBE 2001 NEUROPLASTY AND/TRANSPOS MEDIAN NRV CARPAL TUNNE Bilateral 09/18/2016 THYROID FINE NEEDLE ASPIRATION Right 07/07/2021 THYROID FINE NEEDLE ASPIRATION 08/01/2021 TONSILLECTOMY AND ADENOIDECTOMY Family History: FAMILY HISTORY Problem Relation Age of Onset Diabetes Mother Heart Mother Cataract Mother Emphysema Father Cancer Father other (Kidney Failure) Father Arthritis Paternal Aunt Arthritis Paternal Grandmother Hands Social History: Social History Tobacco Use Smoking status: Former Current packs/day: 0.00 Average packs/day: 0.3 packs/day for 20.0 years (6.0 ttl pk-yrs) Types: Cigarettes Start date: 03/24/2003 Quit date: 03/24/2023 Years since quittin.4 Smokeless tobacco: Never Tobacco comments: TRYING TO QUIT-SMOKES 1-2 A DAY as of 11/28/15 Vaping Use Vaping status: current everyday user Substances: Nicotine, Flavoring Devices: Disposable Substance Use Topics Alcohol use: Not Currently Comment: Quit 2001 Drug use: Not Currently Types: Marijuana Medications: Current Outpatient Medications Medication Sig albuterol HFA (PROVENTIL HFA, VENTOLIN HFA) 90 mcg/actuation inhaler Inhale 2 Puffs as instructed every 6 hours as needed for wheezing/shortness of breath. aspirin, enteric coated (ASPIRIN, ENTERIC COATED) 81 mg EC tablet Take 1 tablet by mouth once daily. isosorbide mononitrate ER (IMDUR) 30 mg 24 hr tablet Take 1 tablet by mouth once daily. Take w/ 60 mg tablet for total daily dose of 90 mg. isosorbide mononitrate ER (IMDUR) 60 mg 24 hr tablet Take 1 tablet by mouth once daily. Take w/ 30 mg tablet for total daily dose of 90 mg. meclizine (ANTIVERT) 25 mg tab Take 1 tablet by mouth three times a day as needed. famotidine (PEPCID) 20 mg tablet Take 1 tablet by mouth two times a day. atorvastatin (LIPITOR) 80 mg tablet Take 1 tablet by mouth once daily. calcium-cholecalciferol, D3, (OSCAL+D 250) 250 mg-3.125 mcg (125 unit) per tablet Take 1 tablet by mouth two times a day. Cholecalciferol, Vitamin D3, 25 mcg (1,000 unit) cap Take 1 capsule by mouth once daily. empagliflozin (JARDIANCE) 10 mg tablet Take 1 tablet by mouth daily with breakfast. sertraline (ZOLOFT) 100 mg tablet Take 1 tablet by mouth once daily. atenolol (TENORMIN) 50 mg tablet Take 1 tablet by mouth once daily. linaGLIPtin (TRADJENTA) 5 mg tab Take 1 tablet by mouth once daily. buPROPion XL (WELLBUTRIN XL) 150 mg 24 hr tablet Take 1 tablet by mouth once daily. Lancets Test blood sugar(s) One time daily. Dx: Type 2 DM - Controlled E11.9 Insulin: No. blood sugar diagnostic (BLOOD GLUCOSE TEST) test strip Test blood sugar(s) 1 times daily. Dx: Type 2 DM - Controlled E11.9 Insulin: No predniSONE (DELTASONE) 10 mg tablet Day #1 - 6 tablets PO then Day #2 - 5 tablets PO then Day #3 - 4 tablets PO then Day #4 - 3 tablets PO then Day #5 - 2 tablets PO then D (more content not included)... [facility] 08-30-2024 Instructions Sakshi Li APRN.BERTHA - 08/30/2024 4:23 PM EDT Schedule thyroid ultrasound. Schedule carotid ultrasound. Schedule with gen surgery. Continue the same medication. documented in this encounter [facility] 08-30-2024 Note HNO ID: [id number] Author: SAKSHI LI APRN.CNP Service: ? Author Type: Nurse Practitioner Type: Progress Notes Filed: 09/01/2024 11:39 Note Text: This is a 59 year old female who presents today with: Patient presents with: Follow Up HISTORY OF PRESENT ILLNESS: Roseann Viveros is a 59 year old female. Patient presents with: Follow Up Pt presents today for a follow-up. At the last visit, Dr. Ventura increased her pepcid to twice daily. Refers that this has made an improvement. Still with some breakthrough between dosing and will use tums. No decreased appetite. No hematochezia/melena. 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 (HCC) 08/31/2016 Depression Diabetes mellitus (HCC) 2010 No nephropathy, neuropathy, retinopathy DJD (degenerative joint disease) of lumbar spine Hyperlipidemia 2011 Low back pain [id number] Unspecified , without mention of complication, unspecified 2 Miscarriage's PAST SURGICAL HISTORY Procedure Laterality Date DELIVERY ONLY , low cervical, (2) DILATION AND CURETTAGE DXAND/THER NONOBSTETRIC Dilation AND curettage x 2 LIGATE FALLOPIAN TUBE 2002 NEUROPLASTY AND/TRANSPOS MEDIAN NRV CARPAL TUNNE Bilateral 09/18/2016 THYROID FINE NEEDLE ASPIRATION Right 07/07/2021 THYROID FINE NEEDLE ASPIRATION 08/01/2021 TONSILLECTOMY AND ADENOIDECTOMY ALLERGIES Bees and Bee Venom Protein (Honey Bee) MEDICATIONS Current Outpatient Medications Medication Sig isosorbide mononitrate ER (IMDUR) 30 mg 24 hr tablet Take 1 tablet by mouth once daily. Take w/ 60 mg tablet for total daily dose of 90 mg. isosorbide mononitrate ER (IMDUR) 60 mg 24 hr tablet Take 1 tablet by mouth once daily. Take w/ 30 mg tablet for total daily dose of 90 mg. meclizine (ANTIVERT) 25 mg tab Take 1 tablet by mouth three times a day as needed. Lancets Test blood sugar(s) One time daily. Dx: Type 2 DM - Controlled E11.9 Insulin: No. blood sugar diagnostic (BLOOD GLUCOSE TEST) test strip Test blood sugar(s) 1 times daily. Dx: Type 2 DM - Controlled E11.9 Insulin: No famotidine (PEPCID) 20 mg tablet Take 1 tablet by mouth two times a day. predniSONE (DELTASONE) 10 mg tablet Day #1 - 6 tablets PO then Day #2 - 5 tablets PO then Day #3 - 4 tablets PO then Day #4 - 3 tablets PO then Day #5 - 2 tablets PO then Day #6 - 1 tablet PO atorvastatin (LIPITOR) 80 mg tablet Take 1 tablet by mouth once daily. calcium-cholecalciferol, D3, (OSCAL+D 250) 250 mg-3.125 mcg (125 unit) per tablet Take 1 tablet by mouth two times a day. Cholecalciferol, Vitamin D3, 25 mcg (1,000 unit) cap Take 1 capsule by mouth once daily. empagliflozin (JARDIANCE) 10 mg tablet Take 1 tablet by mouth daily with breakfast. sertraline (ZOLOFT) 100 mg tablet Take 1 tablet by mouth once daily. albuterol HFA (PROVENTIL HFA, VENTOLIN HFA) 90 mcg/actuation inhaler Inhale 2 Puffs as instructed every 6 hours as needed for wheezing/shortness of breath. atenolol (TENORMIN) 50 mg tablet Take 1 tablet by mouth once daily. linaGLIPtin (TRADJENTA) 5 mg tab Take 1 tablet by mouth once daily. buPROPion XL (WELLBUTRIN XL) 150 mg 24 hr tablet Take 1 tablet by mouth once daily. nitroglycerin sublingual (NITROQUICK) 0.4 mg SL tablet DISSOLVE 1 (ONE) TABLET UNDER THE TONGUE NEEDED FOR CHEST PAIN. MAY REPEAT EVERY 5 MINUTES IF NEEDED; MAX OF 3 DOSES. IF NO RELIEF, COURTNEY aspirin, enteric coated (ASPIRIN, ENTERIC COATED) 81 mg EC tablet Take 1 tablet by mouth once daily. blood sugar diagnostic (TRUE METRIX GLUCOSE TEST STRIP) test strip testing once daily DX E11.9 Insulin No Blood Pressure Monitor Use as directed, Monitor and arm cuff. Dx: I25.119, N18.30, I.10 No current facility-administered medications for this visit. FAMILY HISTORY Problem Relation Age of Onset Diabetes Mother Heart Mother Cataract Mother Emphysema Father Cancer Father other (Kidney Failure) Father Arthritis Paternal Aunt Arthritis Paternal Grandmother Hands Social History Tobacco Use Smoking status: Former Current packs/day: 0.00 Average packs/day: 0.3 packs/day for 20.0 years (6.0 ttl pk-yrs) Types: Cigarettes Start date: 03/24/2003 Quit date: 03/24/2023 Years since quittin.4 Smokeless tobacco: Never Tobacco comments: TRYING TO QUIT-SMOKES 1-2 A DAY as of 11/28/15 Vaping Use Vaping status: current everyday user Substances: Nicotine, Flavoring Devices: Disposable Substance Use Topics Alcohol use: Not Currently Comment: Quit 2001 Drug use: Not Currently Types: Marijuana EXAM: BP 98/62 Pulse 68 Resp 16 LMP 09/01/2010 PHYSICAL EXAM: General Appearance: Well appearing, alert, in no acute distress, well-hydrated, well nourished.. Skin: Skin color, texture, turgor normal, no suspicious rashes or lesions. Head: Normocephalic, n (more content not included)... [facility] 08-30-2024 History of Present illness Narrative This is a 59 year old female who presents today with: Patient presents with: Follow Up HISTORY OF PRESENT ILLNESS: Roseann Viveros is a 59 year old female. Patient presents with: Follow Up Pt presents today for a follow-up. At the last visit, Dr. Ventura increased her pepcid to twice daily. Refers that this has made an improvement. Still with some breakthrough between dosing and will use tums. No decreased appetite. No hematochezia/melena. 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 (HCC) 08/31/2016 Depression Diabetes mellitus (HCC) 2010 No nephropathy, neuropathy, retinopathy DJD (degenerative joint disease) of lumbar spine Hyperlipidemia 2011 Low back pain [id number] Unspecified , without mention of complication, unspecified 2 Miscarriage's PAST SURGICAL HISTORY Procedure Laterality Date DELIVERY ONLY , low cervical, (2) DILATION & CURETTAGE DX&/THER NONOBSTETRIC Dilation & curettage x 2 LIGATE FALLOPIAN TUBE 2002 NEUROPLASTY &/TRANSPOS MEDIAN NRV CARPAL TUNNE Bilateral 09/18/2016 THYROID FINE NEEDLE ASPIRATION Right 07/07/2021 THYROID FINE NEEDLE ASPIRATION 08/01/2021 TONSILLECTOMY & ADENOIDECTOMY <AGE 12 ALLERGIES Bees and Bee Venom Protein (Honey Bee) MEDICATIONS Current Outpatient Medications Medication Sig isosorbide mononitrate ER (IMDUR) 30 mg 24 hr tablet Take 1 tablet by mouth once daily. Take w/ 60 mg tablet for total daily dose of 90 mg. isosorbide mononitrate ER (IMDUR) 60 mg 24 hr tablet Take 1 tablet by mouth once daily. Take w/ 30 mg tablet for total daily dose of 90 mg. meclizine (ANTIVERT) 25 mg tab Take 1 tablet by mouth three times a day as needed. Lancets Test blood sugar(s) One time daily. Dx: Type 2 DM - Controlled E11.9 Insulin: No. blood sugar diagnostic (BLOOD GLUCOSE TEST) test strip Test blood sugar(s) 1 times daily. Dx: Type 2 DM - Controlled E11.9 Insulin: No famotidine (PEPCID) 20 mg tablet Take 1 tablet by mouth two times a day. predniSONE (DELTASONE) 10 mg tablet Day #1 - 6 tablets PO then Day #2 - 5 tablets PO then Day #3 - 4 tablets PO then Day #4 - 3 tablets PO then Day #5 - 2 tablets PO then Day #6 - 1 tablet PO atorvastatin (LIPITOR) 80 mg tablet Take 1 tablet by mouth once daily. calcium-cholecalciferol, D3, (OSCAL+D 250) 250 mg-3.125 mcg (125 unit) per tablet Take 1 tablet by mouth two times a day. Cholecalciferol, Vitamin D3, 25 mcg (1,000 unit) cap Take 1 capsule by mouth once daily. empagliflozin (JARDIANCE) 10 mg tablet Take 1 tablet by mouth daily with breakfast. sertraline (ZOLOFT) 100 mg tablet Take 1 tablet by mouth once daily. albuterol HFA (PROVENTIL HFA, VENTOLIN HFA) 90 mcg/actuation inhaler Inhale 2 Puffs as instructed every 6 hours as needed for wheezing/shortness of breath. atenolol (TENORMIN) 50 mg tablet Take 1 tablet by mouth once daily. linaGLIPtin (TRADJENTA) 5 mg tab Take 1 tablet by mouth once daily. buPROPion XL (WELLBUTRIN XL) 150 mg 24 hr tablet Take 1 tablet by mouth once daily. nitroglycerin sublingual (NITROQUICK) 0.4 mg SL tablet DISSOLVE 1 (ONE) TABLET UNDER THE TONGUE NEEDED FOR CHEST PAIN. MAY REPEAT EVERY 5 MINUTES IF NEEDED; MAX OF 3 DOSES. IF NO RELIEF, COURTNEY aspirin, enteric coated (ASPIRIN, ENTERIC COATED) 81 mg EC tablet Take 1 tablet by mouth once daily. blood sugar diagnostic (TRUE METRIX GLUCOSE TEST STRIP) test strip testing once daily DX E11.9 Insulin No Blood Pressure Monitor Use as directed, Monitor and arm cuff. Dx: I25.119, N18.30, I.10 No current facility-administered medications for this visit. FAMILY HISTORY Problem Relation Age of Onset Diabetes Mother Heart Mother Cataract Mother Emphysema Father Cancer Father other (Kidney Failure) Father Arthritis Paternal Aunt Arthritis Paternal Grandmother Hands Social History Tobacco Use Smoking status: Former Current packs/day: 0.00 Average packs/day: 0.3 packs/day for 20.0 years (6.0 ttl pk-yrs) Types: Cigarettes Start date: 03/24/2003 Quit date: 03/24/2023 Years since quittin.4 Smokeless tobacco: Never Tobacco comments: TRYING TO QUIT-SMOKES 1-2 A DAY as of 11/28/15 Vaping Use Vaping status: current everyday user Substances: Nicotine, Flavoring Devices: Disposable Substance Use Topics Alcohol use: Not Currently Comment: Quit 2001 Drug use: Not Currently Types: Marijuana EXAM: BP 98/62 Pulse 68 Resp 16 LMP 09/01/2010 PHYSICAL EXAM: General Appearance: Well appearing, alert, in no acute distress, well-hydrated, well nourished.. Skin: Skin color, texture, turgor normal, no suspicious rashes or lesions. Head: Normocephalic, no masses, lesions, tenderness or abnormalities. Eyes: Anicteric sclera. Extraocular movements are intact. . Lungs: Lungs clear to auscultation. No wheezing, rhonchi, rales.. Heart: RRR without murmur, gallop, or rubs. No ectopy. Abdomen: Normal abdominal exam, Abdomen soft, non-tender. Bowel sounds normal. No masses, organomegaly. Neurologic: Gait normal. ASSESSMENT/PLAN: 1. Gastroesophageal reflux disease, unspecified whether esophagitis present - ICD9: 530.81, ICD10: K21.9 (primary diagnosis) Will go ahead and consult to gen surg for possible EGD. Continue pepcid. Pt with hx of CKD, so trying to avoid PPI. - CONSULT TO GENERAL SURGERY 2. Wheezing - ICD9: 786.07, ICD10: R06.2 Refill: - ALBUTEROL SULFATE HFA 90 MCG/ACTUATION AEROSOL INHALER 3. Stenosis of carotid artery, unspecified laterality - ICD9: 433.10, ICD10: I65.29 Due for surveillance. - US CAROTID ARTERIES [facility] 4. Thyroid fullness - ICD9: 246.8, ICD10: E07.89 Due for surveillance. - US THYROID/PARATHYROID Discussed treatment plan and patient voices understanding. Patient's questions answered appropriately. Medications and potential side effects were discussed and patient voices understanding. Return to the office as scheduled or as needed for worsening/no improvement. Sakshi Li APRN.BERTHA documented in this encounter [facility] 08-30-2024 Telephone encounter Note Patient contacted Pain Management with voicemail on 08/29/2024 requesting to schedule an appointment with Barbara Bran CNP. Routing to clerical pool for appointment scheduling. [facility] 08-30-2024 Miscellaneous Notes Patient contacted Pain Management with voicemail on 08/29/2024 requesting to schedule an appointment with Barbara Bran CNP. Routing to clerical pool for appointment scheduling. documented in this encounter [facility] 08-04-2024 Telephone encounter Note Contacted patient, scheduled with Dr. Anton 09-15-2024 [facility] Work Phone: 08-04-2024 Miscellaneous Notes Contacted patient, scheduled with Dr. Anton 09-15-2024 Patient informed and verbalized understanding. States she rarely misses doses but sometimes will miss her nightly dose. Agreed to see Endo. Lilo Padgett MA Labs show sugars and trigs are uncontrolled. Refer to endo. Has she missed any doses of her meds? documented in this encounter [facility] 08-04-2024 Telephone encounter Note Patient informed and verbalized understanding. States she rarely misses doses but sometimes will miss her nightly dose. Agreed to see Endo. Lilo Padgett MA [facility] 08-04-2024 Telephone encounter Note Labs show sugars and trigs are uncontrolled. Refer to endo. Has she missed any doses of her meds? [facility] 08-02-2024 History of Present illness Narrative Radiology Service Progress Note PATIENT NAME: Roseann Viveros DATE OF SERVICE: August 02, 2024 TIME: 4:31 PM PATIENT IDENTITY VERIFICATION COMPLETED USING TWO (2) IDENTIFIERS: Name and Date of confirmed by patient verbally. FALL SCREENING: Has the patient had 2 falls in the last year or 1 fall with injury or currently using an Ambulatory Assistive Device (Walker, Cane, Wheelchair, Crutches, etc.)? No PATIENT GENDER DATA: Assigned female at . status: : No status: NO. PATIENT RELEVANT IMPLANT DATA REVIEWED: Yes PATIENT PRESENTS WITH AN IMPLANTABLE OR ATTACHED MANAGER UNIVERSAL: No RADIOLOGY DEPARTMENT: General X-ray: Exam(s) Completed: Upper Extremity X-Ray(s): Hand, bilateral PERIPHERAL IV DATA: Not applicable SIGNED BY: RT Betzy(R) August 02, 2024 4:31 PM documented in this encounter [facility] 08-02-2024 Note HNO ID: [id number] Author: MANI GERMAN RT(R) Service: ? Author Type: Dialysis Registered Nurse Type: Progress Notes Filed: 08/02/2024 16:40 Note Text: Radiology Service Progress Note PATIENT NAME: Roseann Viveros DATE OF SERVICE: August 02, 2024 TIME: 4:31 PM PATIENT IDENTITY VERIFICATION COMPLETED USING TWO (2) IDENTIFIERS: Name and Date of confirmed by patient verbally. FALL SCREENING: Has the patient had 2 falls in the last year or 1 fall with injury or currently using an Ambulatory Assistive Device (Walker, Cane, Wheelchair, Crutches, etc.)? No PATIENT GENDER DATA: Assigned female at . status: : No status: NO. PATIENT RELEVANT IMPLANT DATA REVIEWED: Yes PATIENT PRESENTS WITH AN IMPLANTABLE OR ATTACHED MANAGER UNIVERSAL: No RADIOLOGY DEPARTMENT: General X-ray: Exam(s) Completed: Upper Extremity X-Ray(s): Hand, bilateral PERIPHERAL IV DATA: Not applicable SIGNED BY: RT Betzy(R) August 02, 2024 4:31 PM [facility] 08-02-2024 Note HNO ID: [id number] Author: GARRETT VENTURA MD Service: ? Author Type: Physician Type: Progress Notes Filed: 08/02/2024 16:34 Note Text: Patient presents with: 6 Month Exam HPI: Patient presents today for office visit for follow up. DM: States that glucose is up and down. No polyuria and polydipsia. Cardio: Has used nitro a couple of times since last visit. That made her chest pain go away. Shortness of breath has increased. When she saw Dr Sauer discussed cardiac cath. Has a follow up scheduled there soon and plans to discuss based on her symptoms. No edema today. When eating and swallowing states that hurts going down. Also notices this with cold water. Also admits to still having a lot of heartburn takes famotidine as prescribed and will use Tums PRN. No black or bloody stools. Sees pain management. Has been having worsening issues with hands. No numbness. Has pain at base of hands and trigger finger. Has remote carpal tunnel. Making it difficult to handle things like cooking etc. Her son is now living with her to help her with some of her adls. Last A1c was under 8.0 She did not see nephrology and her last renal function was better after med changes. Has a breakout at the corners of her mouth bilaterlly Note was copied and pasted, without alteration from: last ov: eft elbow pain. Does not recall any injury. Sore over medial epicondyle. No redness or warmth in the elbow. Sees pain management. Saw pharmacy in August GERD: no issues with heartburn. DM:sugars have been up and down. Ddid have a mild hypoglycemic spell a few weeks ago. CARDIO:no chest pain or shortness of breath. No edema. PSYCH:emotionally is doing well. HLD:does get occasional myalgias. Sees Cardiology next month. Was to see nephrology in October an no showed. Reinforced importance of follow up. Did not do her renal us. Avoiding naids. Bp is stable. Still needs several meds adjusted for her renal functions. Latest Ref Rng 02/07/2024 WBC 3.70 - 11.00 k/uL 6.67 RBC 3.90 - 5.20 m/uL 4.70 Hemoglobin 11.5 - 15.5 g/dL 13.3 Hematocrit 36.0 - 46.0 % 41.2 MCV 80.0 - 100.0 fL 87.7 MCH 26.0 - 34.0 pg 28.3 MCHC 30.5 - 36.0 g/dL 32.3 RDW-CV 11.5 - 15.0 % 13.8 Platelet Count 150 - 400 k/uL 212 MPV 9.0 - 12.7 fL 9.5 Neut% % 62.9 Abs Neut (ANC) 1.45 - 7.50 k/uL 4.19 Lymph% % 25.2 Abs Lymph 1.00 - 4.00 k/uL 1.68 [place]% % 6.6 Abs [place] <0.87 k/uL 0.44 Eosin% % 4.0 Abs Eosin <0.46 k/uL 0.27 Baso% % 1.0 Abs Baso <0.11 k/uL 0.07 Immature Gran % % 0.3 IMMATURE GRANS (ABS) <0.10 k/uL <0.03 NRBC /100 WBC 0.0 Absolute nRBC <0.01 k/uL <0.01 DTYPE Auto Protein, Total 6.3 - 8.0 g/dL 7.4 Albumin 3.9 - 4.9 g/dL 4.5 Calcium 8.5 - 10.2 mg/dL 10.2 Bilirubin, Total 0.2 - 1.3 mg/dL 0.2 Alkaline Phosphatase 34 - 123 U/L 72 AST 13 - 35 U/L 14 ALT 7 - 38 U/L 17 Glucose 74 - 99 mg/dL 159 (H) BUN 7 - 21 mg/dL 16 Creatinine 0.58 - 0.96 mg/dL 1.08 (H) Sodium 136 - 144 mmol/L 138 Potassium 3.7 - 5.1 mmol/L 3.8 Chloride 98 - 107 mmol/L 106 CO2 22 - 30 mmol/L 21 (L) Anion Gap 8 - 15 mmol/L 11 eGFR >=60 mL/min/1.73m? 60 Normalized Calcium 1.08 - 1.30 mmol/L 1.30 Ionized Calcium 1.08 - 1.30 mmol/L 1.35 (H) Hemoglobin A1C 4.3 - 5.6 % 7.6 (H) Estimated Average Glucose mg/dL 171 Phosphorus 2.7 - 4.8 mg/dL 3.2 PTH, Intact 15 - 65 pg/mL 52 Legend: (H) High (L) Low MEDICATIONS: Current Outpatient Medications Medication Sig atorvastatin (LIPITOR) 80 mg tablet Take 1 tablet by mouth once daily. calcium-cholecalciferol, D3, (OSCAL+D 250) 250 mg-3.125 mcg (125 unit) per tablet Take 1 tablet by mouth two times a day. empagliflozin (JARDIANCE) 10 mg tablet Take 1 tablet by mouth daily with breakfast. sertraline (ZOLOFT) 100 mg tablet Take 1 tablet by mouth once daily. albuterol HFA (PROVENTIL HFA, VENTOLIN HFA) 90 mcg/actuation inhaler Inhale 2 Puffs as instructed every 6 hours as needed for wheezing/shortness of breath. atenolol (TENORMIN) 50 mg tablet Take 1 tablet by mouth once daily. linaGLIPtin (TRADJENTA) 5 mg tab Take 1 tablet by mouth once daily. buPROPion XL (WELLBUTRIN XL) 150 mg 24 hr tablet Take 1 tablet by mouth once daily. aspirin, enteric coated (ASPIRIN, ENTERIC COATED) 81 mg EC tablet Take 1 tablet by mouth once daily. isosorbide mononitrate ER (IMDUR) 30 mg 24 hr tablet Take 1 tablet by mouth once daily. Take w/ 60 mg tablet for total daily dose of 90 mg. isosorbide mononitrate ER (IMDUR) 60 mg 24 hr tablet Take 1 tablet by mouth once daily. Take w/ 30 mg tablet for total daily dose of 90 mg. meclizine (ANTIVERT) 25 mg tab Take 1 tablet by mouth three times a day as needed. Lancets Test blood sugar(s) One time daily. Dx: Type 2 DM - Controlled E11.9 Insulin: No. blood sugar diagnostic (BLOOD GLUCOSE TEST) test strip Test blood sugar(s) 1 times daily. Dx: Type 2 DM - Controlled E11.9 Insulin: No famotidine (PEPCID) 20 mg tablet Take 1 tablet by (more content not included)... [facility] 08-02-2024 History of Present illness Narrative Patient presents with: 6 Month Exam HPI: Patient presents today for office visit for follow up. DM: States that glucose is up and down. No polyuria and polydipsia. Cardio: Has used nitro a couple of times since last visit. That made her chest pain go away. Shortness of breath has increased. When she saw Dr Sauer discussed cardiac cath. Has a follow up scheduled there soon and plans to discuss based on her symptoms. No edema today. When eating and swallowing states that hurts going down. Also notices this with cold water. Also admits to still having a lot of heartburn takes famotidine as prescribed and will use Tums PRN. No black or bloody stools. Sees pain management. Has been having worsening issues with hands. No numbness. Has pain at base of hands and trigger finger. Has remote carpal tunnel. Making it difficult to handle things like cooking etc. Her son is now living with her to help her with some of her adls. Last A1c was under 8.0 She did not see nephrology and her last renal function was better after med changes. Has a breakout at the corners of her mouth bilaterlly Note was copied and pasted, without alteration from: last ov: eft elbow pain. Does not recall any injury. Sore over medial epicondyle. No redness or warmth in the elbow. Sees pain management. Saw pharmacy in August GERD: no issues with heartburn. DM:sugars have been up and down. Ddid have a mild hypoglycemic spell a few weeks ago. CARDIO:no chest pain or shortness of breath. No edema. PSYCH:emotionally is doing well. HLD:does get occasional myalgias. Sees Cardiology next month. Was to see nephrology in October an no showed. Reinforced importance of follow up. Did not do her renal us. Avoiding naids. Bp is stable. Still needs several meds adjusted for her renal functions. Latest Ref Rng 02/07/2024 WBC 3.70 - 11.00 k/uL 6.67 RBC 3.90 - 5.20 m/uL 4.70 Hemoglobin 11.5 - 15.5 g/dL 13.3 Hematocrit 36.0 - 46.0 % 41.2 MCV 80.0 - 100.0 fL 87.7 MCH 26.0 - 34.0 pg 28.3 MCHC 30.5 - 36.0 g/dL 32.3 RDW-CV 11.5 - 15.0 % 13.8 Platelet Count 150 - 400 k/uL 212 MPV 9.0 - 12.7 fL 9.5 Neut% % 62.9 Abs Neut (ANC) 1.45 - 7.50 k/uL 4.19 Lymph% % 25.2 Abs Lymph 1.00 - 4.00 k/uL 1.68 [place]% % 6.6 Abs [place] <0.87 k/uL 0.44 Eosin% % 4.0 Abs Eosin <0.46 k/uL 0.27 Baso% % 1.0 Abs Baso <0.11 k/uL 0.07 Immature Gran % % 0.3 IMMATURE GRANS (ABS) <0.10 k/uL <0.03 NRBC /100 WBC 0.0 Absolute nRBC <0.01 k/uL <0.01 DTYPE Auto Protein, Total 6.3 - 8.0 g/dL 7.4 Albumin 3.9 - 4.9 g/dL 4.5 Calcium 8.5 - 10.2 mg/dL 10.2 Bilirubin, Total 0.2 - 1.3 mg/dL 0.2 Alkaline Phosphatase 34 - 123 U/L 72 AST 13 - 35 U/L 14 ALT 7 - 38 U/L 17 Glucose 74 - 99 mg/dL 159 (H) BUN 7 - 21 mg/dL 16 Creatinine 0.58 - 0.96 mg/dL 1.08 (H) Sodium 136 - 144 mmol/L 138 Potassium 3.7 - 5.1 mmol/L 3.8 Chloride 98 - 107 mmol/L 106 CO2 22 - 30 mmol/L 21 (L) Anion Gap 8 - 15 mmol/L 11 eGFR >=60 mL/min/1.73m 60 Normalized Calcium 1.08 - 1.30 mmol/L 1.30 Ionized Calcium 1.08 - 1.30 mmol/L 1.35 (H) Hemoglobin A1C 4.3 - 5.6 % 7.6 (H) Estimated Average Glucose mg/dL 171 Phosphorus 2.7 - 4.8 mg/dL 3.2 PTH, Intact 15 - 65 pg/mL 52 Legend: (H) High (L) Low MEDICATIONS: Current Outpatient Medications Medication Sig atorvastatin (LIPITOR) 80 mg tablet Take 1 tablet by mouth once daily. calcium-cholecalciferol, D3, (OSCAL+D 250) 250 mg-3.125 mcg (125 unit) per tablet Take 1 tablet by mouth two times a day. empagliflozin (JARDIANCE) 10 mg tablet Take 1 tablet by mouth daily with breakfast. sertraline (ZOLOFT) 100 mg tablet Take 1 tablet by mouth once daily. albuterol HFA (PROVENTIL HFA, VENTOLIN HFA) 90 mcg/actuation inhaler Inhale 2 Puffs as instructed every 6 hours as needed for wheezing/shortness of breath. atenolol (TENORMIN) 50 mg tablet Take 1 tablet by mouth once daily. linaGLIPtin (TRADJENTA) 5 mg tab Take 1 tablet by mouth once daily. buPROPion XL (WELLBUTRIN XL) 150 mg 24 hr tablet Take 1 tablet by mouth once daily. aspirin, enteric coated (ASPIRIN, ENTERIC COATED) 81 mg EC tablet Take 1 tablet by mouth once daily. isosorbide mononitrate ER (IMDUR) 30 mg 24 hr tablet Take 1 tablet by mouth once daily. Take w/ 60 mg tablet for total daily dose of 90 mg. isosorbide mononitrate ER (IMDUR) 60 mg 24 hr tablet Take 1 tablet by mouth once daily. Take w/ 30 mg tablet for total daily dose of 90 mg. meclizine (ANTIVERT) 25 mg tab Take 1 tablet by mouth three times a day as needed. Lancets Test blood sugar(s) One time daily. Dx: Type 2 DM - Controlled E11.9 Insulin: No. blood sugar diagnostic (BLOOD GLUCOSE TEST) test strip Test blood sugar(s) 1 times daily. Dx: Type 2 DM - Controlled E11.9 Insulin: No famotidine (PEPCID) 20 mg tablet Take 1 tablet by mouth two times a day. clotrimazole-betamethasone (LOTRISONE) lotion Apply to affected area two times a day for 14 days. predniSONE (DELTASONE) 10 mg tablet Day #1 - 6 tablets PO then Day #2 - 5 tablets PO then Day #3 - 4 tablets PO then Day #4 - 3 tablets PO then Day #5 - 2 tablets PO then Day #6 - 1 tablet PO Cholecalciferol, Vitamin D3, 25 mcg (1,000 unit) cap Take 1 capsule by mouth once daily. nitroglycerin sublingual (NITROQUICK) 0.4 mg SL tablet DISSOLVE 1 (ONE) TABLET UNDER THE TONGUE NEEDED FOR CHEST PAIN. MAY REPEAT EVERY 5 MINUTES IF NEEDED; MAX OF 3 DOSES. IF NO RELIEF, COURTNEY blood sugar diagnostic (TRUE METRIX GLUCOSE TEST STRIP) test strip testing once daily DX E11.9 Insulin No Blood Pressure Monitor Use as directed, Monitor and arm cuff. Dx: I25.119, N18.30, I.10 No current facility-administered medications for this visit. ALLERGIES: ALLERGIES Allergen Reactions Bees Bee Venom Protein (* Unknown, Swelling PAST MEDICAL HISTORY Diagnosis Date Anxiety 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 (HCC) 08/31/2016 Depression Diabetes mellitus (HCC) 2010 No nephropathy, neuropathy, retinopathy DJD (degenerative joint disease) of lumbar spine Hyperlipidemia 2011 Low back pain [id number] Unspecified , without mention of complication, unspecified 2 Miscarriage's PAST SURGICAL HISTORY Procedure Laterality Date DELIVERY ONLY , low cervical, (2) DILATION & CURETTAGE DX&/THER NONOBSTETRIC Dilation & curettage x 2 LIGATE FALLOPIAN TUBE 2002 NEUROPLASTY &/TRANSPOS MEDIAN NRV CARPAL TUNNE Bilateral 09/18/2016 THYROID FINE NEEDLE ASPIRATION Right 07/07/2021 THYROID FINE NEEDLE ASPIRATION 08/01/2021 TONSILLECTOMY & ADENOIDECTOMY <AGE 12 FAMILY HISTORY Problem Relation Age of Onset Diabetes Mother Heart Mother Cataract Mother Emphysema Father Cancer Father other (Kidney Failure) Father Arthritis Paternal Aunt Arthritis Paternal Grandmother Hands Social History Tobacco Use Smoking status: Former Current packs/day: 0.00 Average packs/day: 0.3 packs/day for 20.0 years (6.0 ttl pk-yrs) Types: Cigarettes Start date: 03/24/2003 Quit date: 03/24/2023 Years since quittin.3 Smokeless tobacco: Never Tobacco comments: TRYING TO QUIT-SMOKES 1-2 A DAY as of 11/28/15 Vaping Use Vaping status: current everyday user Substances: Nicotine, Flavoring Devices: Disposable Substance Use Topics Alcohol use: Not Currently Comment: Quit 2001 Drug use: Not Currently Types: Marijuana Reviewed current medications, allergies, past medical history, surgical history, family history and social history today. REVIEW OF SYSTEMS All other reviewed and negative other than HPI. HEALTH MAINTENANCE: Reviewed health maintenance issues today and recommended the following in detail. HIV Screening Never done Urine Albumin:Creatinine Ratio due on 06/18/2022 Diabetic Foot Exam due on 02/09/2024 Mammogram Screening -needs rescheduled. Colorectal Cancer Screening due on 03/23/2024 LDL Cholesterol due on 06/10/2024 Dilated Retinal Exam-reminded to do. VITALS: BP 102/70 Pulse 65 Wt 57.2 kg (126 lb) LMP 09/01/2010 SpO2 96% BMI 23.05 kg/m Last 4 Encounter Wt Readings: Date: Wt: 08/02/2024 57.2 kg (126 lb) 07/11/2024 57.8 kg (127 lb 6.8 oz) 05/31/2024 58 kg (127 lb 13.9 oz) 03/20/2024 58 kg (127 lb 12.8 oz) PHYSICAL EXAMINATION: General appearance: Well appearing, alert, in no acute distress, well-hydrated, well nourished. Skin: angular cheilitis bilaterally Head: Normocephalic, no masses, lesions, tenderness or abnormalities Lungs: Lungs clear to auscultation. No wheezing, rhonchi, rales Heart: RRR without murmur, gallop, or rubs. No ectopy Abdomen: Normal abdominal exam, Abdomen soft, non-tender. Bowel sounds normal. No masses, organomegaly Extremities: No deformities, edema, skin discoloration, clubbing or cyanosis. Good capillary refill. , trigger finger of middle finger of right hand. Feet:Shoes and socks removed, normal distal pulses, not sensitive to monofilament , calluses noted bilaterally, and nails notable for Crumbly, Deformed, Hypertrophic, or Yellowish ASSESSMENT/PLAN: 1. 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 (HCC) - ICD9: 414.01, 413.9, ICD10: I25.119 (primary diagnosis) - continue meds. Red flags for re-assessment reviewed with patient in detail. 2. Shortness of breath - ICD9: 786.05, ICD10: R06.02 - ISOSORBIDE MONONITRATE ER 30 MG TABLET,EXTENDED RELEASE 24 HR 3. Dizziness - ICD9: 780.4, ICD10: R42 - MECLIZINE 25 MG TABLET 4. Controlled type 2 diabetes mellitus without complication, without long-term current use of insulin (HCC) - ICD9: 250.00, ICD10: E11.9 - check labs to assess current A1c. - LANCETS - BLOOD SUGAR DIAGNOSTIC STRIPS - BASIC METABOLIC PANEL - HEMOGLOBIN A1C - LIPID PANEL, NONFASTING - ALBUMIN/CREATININE RATIO, URINE 5. Mixed hyperlipidemia - ICD9: 272.2, ICD10: E78.2 - Control undetermined, due for labs - Counseled on healthy diet and regular exercise 6. Essential (primary) hypertension - ICD9: 401.9, ICD10: I10 - Controlled - Continue current medications 7. Chronic renal disease, stage IV (HCC) - ICD9: 585.4, ICD10: N18.4 - avoid nsaids. Check labs. 8. Anxiety - ICD9: 300.00, ICD10: F41.9 - BASIC METABOLIC PANEL 9. Spinal stenosis of lumbar region with neurogenic claudication - ICD9: 724.03, ICD10: M48.062 - per pain management. 10. Pain in both hands - ICD9: 729.5, ICD10: M79.641, M79.64 - XR HAND GENERAL 3V PA/LAT/OBL BILATERAL - CONSULT TO ORTHOPAEDICS 11. Trigger middle finger of right hand - ICD9: 727.03, ICD10: M65.331 - XR HAND GENERAL 3V PA/LAT/OBL BILATERAL - CONSULT TO ORTHOPAEDICS 12. Gastroesophageal reflux disease without esophagitis - ICD9: 530.81, ICD10: K21.9 - increase dose. Recheck one month. - FAMOTIDINE 20 MG TABLET 13. Screening for colon cancer - ICD9: V76.51, ICD10: Z12.11 - COLOGUARD 14. Angular cheilitis - ICD9: 528.5, ICD10: K13.0 - CLOTRIMAZOLE-BETAMETHASONE 1 %-0.05 % LOTION 15. Onychomycosis - ICD9: 110.1, ICD10: B35.1 - CONSULT TO PODIATRY 16. Bunion - ICD9: 727.1, ICD10: M21.619 - CONSULT TO PODIATRY 17. Callus - ICD9: 700, ICD10: L84 - CONSULT TO PODIATRY Garrett Ventura RTO in one month and prn. documented in this encounter [facility] 07-11-2024 Instructions Geraldine Araya PA-C - 07/11/2024 6:49 PM EST A cough is your body's response to something that bothers your throat or airways. Many things can cause a cough. You might cough because of a cold or the flu, bronchitis, or asthma. Smoking, postnasal drip, allergies, and stomach acid that backs up into your throat also can cause coughs. A cough is a symptom, not a disease. Most coughs stop when the cause, such as a cold, goes away. You can take a few steps at home to cough less and feel better. Follow-up care is a kincaid part of your treatment and safety. Be sure to make and go to all appointments, and call your doctor if you are having problems. It's also a good idea to know your test results and keep a list of the medicines you take. How can you care for yourself at home? - Drink lots of water and other fluids. This helps thin the mucus and soothes a dry or sore throat. Honey or lemon juice in hot water or tea may ease a dry cough. - Take cough medicine as directed by your doctor. - Prop up your head on pillows to help you breathe and ease a dry cough. - Try cough drops or hard candy to soothe a dry or sore throat. - Do not smoke. Avoid secondhand smoke. If you need help quitting, talk to your doctor about stop-smoking programs and medicines. These can increase your chances of quitting for good. When should you call for help? Call 911 anytime you think you may need emergency care. For example, call if: You have severe trouble breathing. Call your doctor now or seek immediate medical care if: You cough up blood. You have new or worse trouble breathing. You have a new or higher fever. You have a new rash. Watch closely for changes in your health, and be sure to contact your doctor if: You cough more deeply or more often, especially if you notice more mucus or a change in the color of your mucus. You have new symptoms, such as a sore throat, an earache, or sinus pain. You do not get better as expected. documented in this encounter [facility] 07-11-2024 History of Present illness Narrative Radiology Service Progress Note PATIENT NAME: Roseann Viveros DATE OF SERVICE: July 11, 2024 TIME: 5:56 PM PATIENT IDENTITY VERIFICATION COMPLETED USING TWO (2) IDENTIFIERS: Name and Date of confirmed by patient verbally. FALL SCREENING: Has the patient had 2 falls in the last year or 1 fall with injury or currently using an Ambulatory Assistive Device (Walker, Cane, Wheelchair, Crutches, etc.)? No PATIENT GENDER DATA: Assigned female at . status: : No status: NO. PATIENT RELEVANT IMPLANT DATA REVIEWED: Yes PATIENT PRESENTS WITH AN IMPLANTABLE OR ATTACHED MANAGER UNIVERSAL: No RADIOLOGY DEPARTMENT: General X-ray: Exam(s) Completed: Chest X-Ray PERIPHERAL IV DATA: Not applicable SIGNED BY: RT Betzy(R) July 11, 2024 5:56 PM documented in this encounter [facility] 07-11-2024 Note HNO ID: [id number] Author: MANI GERMAN RT(R) Service: ? Author Type: Dialysis Registered Nurse Type: Progress Notes Filed: 07/11/2024 18:05 Note Text: Radiology Service Progress Note PATIENT NAME: Roseann Viveros DATE OF SERVICE: July 11, 2024 TIME: 5:56 PM PATIENT IDENTITY VERIFICATION COMPLETED USING TWO (2) IDENTIFIERS: Name and Date of confirmed by patient verbally. FALL SCREENING: Has the patient had 2 falls in the last year or 1 fall with injury or currently using an Ambulatory Assistive Device (Walker, Cane, Wheelchair, Crutches, etc.)? No PATIENT GENDER DATA: Assigned female at . status: : No status: NO. PATIENT RELEVANT IMPLANT DATA REVIEWED: Yes PATIENT PRESENTS WITH AN IMPLANTABLE OR ATTACHED MANAGER UNIVERSAL: No RADIOLOGY DEPARTMENT: General X-ray: Exam(s) Completed: Chest X-Ray PERIPHERAL IV DATA: Not applicable SIGNED BY: RT Betzy(R) July 11, 2024 5:56 PM [facility] 07-11-2024 Note HNO ID: [id number] Author: GERALDINE ARAYA PA-C Service: ? Author Type: Physician Barbering Instructor Type: Progress Notes Filed: 07/11/2024 18:52 Note Text: Subjective Roseann Viveros is a 59 year old female with a past medical history of CAD, hypertension, CKD, and diabetes who presents to express care today for evaluation of congestion, and shortness of breath for the past 3 to 4 days. She denies having any fevers. No known exposure to COVID-19, influenza, or RSV. Review of Systems Constitutional: Negative for chills, diaphoresis and fever. HENT: Negative for congestion, ear pain and sore throat. Eyes: Negative for discharge and redness. Respiratory: Positive for cough, chest tightness and shortness of breath. Skin: Negative for rash and wound. Neurological: Negative for weakness and headaches. All other systems reviewed and are negative. Objective BP 104/74 Pulse 101 Temp 36.8 ?C (98.3 ?F) (Left Tympanic) Resp 16 Wt 57.8 kg (127 lb 6.8 oz) LMP 09/01/2010 SpO2 97% BMI 23.31 kg/m? Physical Exam Vitals reviewed. Constitutional: General: She is not in acute distress. Appearance: Normal appearance. She is normal weight. She is not ill-appearing or toxic-appearing. Comments: The patient appears to be non-toxic, in no acute distress, and resting comfortably on the table. HENT: Head: Normocephalic and atraumatic. Eyes: Extraocular Movements: Extraocular movements intact. Cardiovascular: Rate and Rhythm: Normal rate and regular rhythm. Heart sounds: Normal heart sounds. No murmur heard. No friction rub. No gallop. Pulmonary: Effort: Pulmonary effort is normal. No respiratory distress. Breath sounds: Normal breath sounds. Decreased air movement present. No wheezing. Musculoskeletal: General: Normal range of motion. Cervical back: Normal range of motion. Skin: General: Skin is warm and dry. Findings: No erythema. Neurological: General: No focal deficit present. Mental Status: She is alert and oriented to person, place, and time. Mental status is at baseline. Psychiatric: Mood and Affect: Mood normal. Behavior: Behavior normal. Thought Content: Thought content normal. Assessment and Plan Decreased air movement heard upon auscultation of the lungs. Chest x-ray ordered to rule out pneumonia. Chest x-ray negative. Results discussed with patient. Suspect patient's symptoms are due to viral infection. Patient offered testing for COVID-19, influenza, and RSV but declined. Patient given prescriptions for prednisone and Mucinex and advised to follow-up with primary care as needed. ASSESSMENT/PLAN: 1. Viral URI - ICD9: 465.9, ICD10: J06.9 (primary diagnosis) - Discussed viral etiology and rationale for treatment. - Symptomatic treatment with prn analgesia - Supportive care with fluids and rest 2. Acute cough - ICD9: 786.2, ICD10: R05.1 - XR CHEST 2V FRONTAL/LAT - PREDNISONE 10 MG TABLET - GUAIFENESIN ER 600 MG TABLET, EXTENDED RELEASE 12 HR 3. Chest congestion - ICD9: 786.9, ICD10: R09.89 - XR CHEST 2V FRONTAL/LAT - PREDNISONE 10 MG TABLET - GUAIFENESIN ER 600 MG TABLET, EXTENDED RELEASE 12 HR Medical Decision Making: Problems: Low: Acute, uncomplicated illness or injury Risk: Minimal: Minimal risk from testing/treatment Moderate: Drug management Medical Decision Making Level: 3 - Low I spent a total of 20 minutes on the date of the service which included preparing to see the patient, [id number] patient care, completing clinical documentation, performing a medically appropriate examination, counseling and educating the patient/family/caregiver, and ordering medications, tests, or procedures. Geraldine Araya PA-C [facility] 07-11-2024 History of Present illness Narrative Subjective Roseann Viveros is a 59 year old female with a past medical history of CAD, hypertension, CKD, and diabetes who presents to [facility] care today for evaluation of congestion, and shortness of breath for the past 3 to 4 days. She denies having any fevers. No known exposure to COVID-19, influenza, or RSV. Review of Systems Constitutional: Negative for chills, diaphoresis and fever. HENT: Negative for congestion, ear pain and sore throat. Eyes: Negative for discharge and redness. Respiratory: Positive for cough, chest tightness and shortness of breath. Skin: Negative for rash and wound. Neurological: Negative for weakness and headaches. All other systems reviewed and are negative. Objective BP 104/74 Pulse 101 Temp 36.8 C (98.3 F) (Left Tympanic) Resp 16 Wt 57.8 kg (127 lb 6.8 oz) LMP 09/01/2010 SpO2 97% BMI 23.31 kg/m Physical Exam Vitals reviewed. Constitutional: General: She is not in acute distress. Appearance: Normal appearance. She is normal weight. She is not ill-appearing or toxic-appearing. Comments: The patient appears to be non-toxic, in no acute distress, and resting comfortably on the table. HENT: Head: Normocephalic and atraumatic. Eyes: Extraocular Movements: Extraocular movements intact. Cardiovascular: Rate and Rhythm: Normal rate and regular rhythm. Heart sounds: Normal heart sounds. No murmur heard. No friction rub. No gallop. Pulmonary: Effort: Pulmonary effort is normal. No respiratory distress. Breath sounds: Normal breath sounds. Decreased air movement present. No wheezing. Musculoskeletal: General: Normal range of motion. Cervical back: Normal range of motion. Skin: General: Skin is warm and dry. Findings: No erythema. Neurological: General: No focal deficit present. Mental Status: She is alert and oriented to person, place, and time. Mental status is at baseline. Psychiatric: Mood and Affect: Mood normal. Behavior: Behavior normal. Thought Content: Thought content normal. Assessment and Plan Decreased air movement heard upon auscultation of the lungs. Chest x-ray ordered to rule out pneumonia. Chest x-ray negative. Results discussed with patient. Suspect patient's symptoms are due to viral infection. Patient offered testing for COVID-19, influenza, and RSV but declined. Patient given prescriptions for prednisone and Mucinex and advised to follow-up with primary care as needed. ASSESSMENT/PLAN: 1. Viral URI - ICD9: 465.9, ICD10: J06.9 (primary diagnosis) - Discussed viral etiology and rationale for treatment. - Symptomatic treatment with prn analgesia - Supportive care with fluids and rest 2. Acute cough - ICD9: 786.2, ICD10: R05.1 - XR CHEST 2V FRONTAL/LAT - PREDNISONE 10 MG TABLET - GUAIFENESIN ER 600 MG TABLET, EXTENDED RELEASE 12 HR 3. Chest congestion - ICD9: 786.9, ICD10: R09.89 - XR CHEST 2V FRONTAL/LAT - PREDNISONE 10 MG TABLET - GUAIFENESIN ER 600 MG TABLET, EXTENDED RELEASE 12 HR Medical Decision Making: Problems: Low: Acute, uncomplicated illness or injury Risk: Minimal: Minimal risk from testing/treatment Moderate: Drug management Medical Decision Making Level: 3 - Low I spent a total of 20 minutes on the date of the service which included preparing to see the patient, oliw-[id number] patient care, completing clinical documentation, performing a medically appropriate examination, counseling and educating the patient/family/caregiver, and ordering medications, tests, or procedures. Geraldine Araya PA-C documented in this encounter [facility] 06-14-2024 Note Patient Outreach (IN [facility]) ROSEANN VIVEROS ([id number]) 1965 F [place] Date Time Provider Department 06/14/24 GARRETT VENTURA During your visit today, we recorded the following information about you: Allergies As of Date: 06/14/2024 Noted Allergy Reaction BEES 08/29/2008 BEE VENOM PROTEIN (HONEY BEE) 05/27/2018 16 - Unknown 7 - Swelling Date Reviewed: 05/31/2024 Reviewed by: Annmarie Kinney MA - Fully Assessed Visit Diagnosis:Encounter for screening mammogram for breast cancer [Z12.31] Order(s):[facility] SCREENING [facility]ELIZ [[id number]] Order #: [id number] FUTURE Prescriptions as of 06/19/2024 - methocarbamol (ROBAXIN-750) 750 mg tablet Take 1 tablet by mouth three times a day as needed. - atorvastatin (LIPITOR) 80 mg tablet Take 1 tablet by mouth once daily. - calcium-cholecalciferol, D3, (OSCAL+D 250) 250 mg-3.125 mcg (125 unit) per tablet Take 1 tablet by mouth two times a day. - Cholecalciferol, Vitamin D3, 25 mcg (1,000 unit) cap Take 1 capsule by mouth once daily. - empagliflozin (JARDIANCE) 10 mg tablet Take 1 tablet by mouth daily with breakfast. - sertraline (ZOLOFT) 100 mg tablet Take 1 tablet by mouth once daily. - albuterol HFA (PROVENTIL HFA, VENTOLIN HFA) 90 mcg/actuation inhaler Inhale 2 Puffs as instructed every 6 hours as needed for wheezing/shortness of breath. - meclizine (ANTIVERT) 25 mg tab Take 1 tablet by mouth three times a day as needed. - atenolol (TENORMIN) 50 mg tablet Take 1 tablet by mouth once daily. - famotidine (PEPCID) 10 mg tablet Take 1 tablet by mouth once daily. - linaGLIPtin (TRADJENTA) 5 mg tab Take 1 tablet by mouth once daily. - buPROPion XL (WELLBUTRIN XL) 150 mg 24 hr tablet Take 1 tablet by mouth once daily. - nitroglycerin sublingual (NITROQUICK) 0.4 mg SL tablet DISSOLVE 1 (ONE) TABLET UNDER THE TONGUE NEEDED FOR CHEST PAIN. MAY REPEAT EVERY 5 MINUTES IF NEEDED; MAX OF 3 DOSES. IF NO RELIEF, COURTNEY - isosorbide mononitrate ER (IMDUR) 30 mg 24 hr tablet Take 1 tablet by mouth once daily. Take w/ 60 mg tablet for total daily dose of 90 mg. - isosorbide mononitrate ER (IMDUR) 60 mg 24 hr tablet Take 1 tablet by mouth once daily. Take w/ 30 mg tablet for total daily dose of 90 mg. - aspirin, enteric coated (ASPIRIN, ENTERIC COATED) 81 mg EC tablet Take 1 tablet by mouth once daily. - blood sugar diagnostic (BLOOD GLUCOSE TEST) test strip Test blood sugar(s) 1 times daily. Dx: Type 2 DM - Controlled E11.9 Insulin: No - blood sugar diagnostic (TRUE METRIX GLUCOSE TEST STRIP) test strip testing once daily DX E11.9 Insulin No - Lancets lancets Test blood sugar(s) One time daily. Dx: Type 2 DM - Controlled E11.9 Insulin: No. - Blood Pressure Monitor Use as directed, Monitor and arm cuff. Dx: I25.119, N18.30, I.10 Problem List As Of Date 06/14/2024 Noted Resolved Lumbago [M54.50] 10/02/2011 09/04/2016 Pain in joint, shoulder region [M25.519] 10/20/2011 09/04/2016 Disorders of bursae and tendons in shoulder reg*10/20/2011 09/04/2016 Diabetes mellitus (HCC) [E11.9] 03/25/2012 07/06/2020 Hyperlipidemia [E78.5] 03/25/2012 Chest pain [R07.9] 09/22/2012 07/06/2020 Numbness and tingling [R20.0, R20.2] 09/22/2012 09/04/2016 Lateral epicondylitis of elbow [M77.10] 06/19/2013 09/04/2016 Lumbar stenosis [M48.061] 06/08/2014 DDD (degenerative disc disease), lumbar [M51.36*06/08/2014 Carpal tunnel syndrome, bilateral [G56.03] 08/18/2016 Anxiety [F41.9] 08/31/2016 Coronary artery disease involving [place]*08/31/2016 Radiculopathy, lumbar region [M54.16] 10/14/2016 Spondylolisthesis of lumbar region [M43.16] 10/14/2016 Spinal stenosis of lumbar region with neurogeni*06/01/2017 Controlled type 2 diabetes mellitus without com*04/10/2018 Spondylolisthesis [M43.10] 07/22/2018 Essential (primary) hypertension [I10] 02/22/2016 Diagnosed: 06/10/2023 Chronic renal disease, stage IV (HCC) [N18.4] 01/24/2024 Encounter Status:Closed by EPIC, PRODUSER on 06/19/24 [facility] 05-31-2024 Note HNO ID: [id number] Author: BARBARA BRAN APRN.STAVE SAW OPERATOR Service: ? Author Type: Nurse Practitioner Type: Progress Notes Filed: 05/31/2024 11:29 Note Text: Subjective Roseann Viveros presents to [facility] for a follow up appointment. Since the last visit, Roseann Viveros states the pain has been same. Current pain intensity is 8 on a scale of 0-10. Pain located in Back area and radiates to bilateral legs Pain described as sharp Symptoms interfere with everything.. Pain is exacerbated by trying to get out of bed. Pain is mitigated by medications and heat. The patient is overall improved with the injections by 50%. The medications are partially effective. The patient states the last dose of . Citra was taken a while ago. Well over a month per pt. Robaxin was taken this morning at 7a Patient Entered Questionnaires PROMIS Score Percentiles 02/02/2023 PROMIS Global Health Scale Physical Health Percentile 2 Mental Health Percentile 2 02/02/2023 Physical Health Physical Function Percentile 12 Pain Interference Percentile 5 Percentiles provide an indication of how the patient's score ranks in relation to the general population. Higher percentile rankings indicate better function/quality of life. 50th percentile is the average of the general population and indicates half of respondents had a worse score. > 31st percentile is within normal limits or better * < 31st percentile is at least ? SD worse than population, which may be clinically relevant < 16th percentile is at least 1 SD worse than population and warrants attention Review of Systems Constitutional: (-) Weight Gain (-) Weight Loss (+) Fatigue Cardiovascular: (-) hx heart surgery (-) Pacemaker Respiratory: (+) Shortness of Breath (-) Cough (+) Snoring Gastrointestinal: (-) Incontinence (-) Diarrhea (-) Constipation (-) Nausea/Vomiting Endocrine: (-) Thyroid Disorder (+) Diabetes Hematologic: (-) Prolonged Bleeding (+) Easy Bruising Genitourinary: (-) Incontinence (-) Frequency (-) Urinary Urgency Skin: (-) Open sores/wound Neurologic: (+) Headache (-) Double Vision Psychiatric: (+) Depression (+) Anxiety (-) Personal History of Alcohol or Substance Abuse (-) Family History of Alcohol or Substance Abuse Chief Complaint Patient presents with: Pain Refill Request Physical Examination Pulse 62 Ht 5' 2 (1.58m) Wt 127 lb 13.9 oz (58.0kg) SpO2 97% LMP 09/01/2010 BMI 23.38 kg/(m2). General:well appearing and alert Skin: Skin color, texture, turgor normal, no rashes or lesions HEENT: normal Cardiovascular: Regular, rate and rhythm Lungs: Normal respiratory rate and rhythm, unlabored on room air Musculoskeletal: Back: Tenderness on palpation over the lumbar spine. , Tenderness over the bilateral lumbar paraspinal muscles, Extremities: Extremities normal. No deformities, edema, or skin discoloration Neurological: Mental Status: alert Motor Strength: Motor strength and tone are 5/5 all throughout. Sensory: Not Examined Gait: Normal. Trigger points: lumbosacral spine muscles and gluteal muscles. Assessment Assessment : Patient presents for a follow-up visit Patient has chronic low back pain that radiates down the bilateral lower extremities to the feet Her last transforaminal injections were in 2018. She would like to repeat injections but she has transportation issues Patient takes Citra as needed and Robaxin to help manage her chronic pain She reports no new issues or side effects from medications Encounter Diagnosis ICD-10-CM 1. Degeneration of intervertebral disc of lumbar region with discogenic back pain M51.360 2. Spinal stenosis of lumbar region with neurogenic claudication M48.062 HYDROcodone-acetaminophen (NORCO) 5-325 mg per tablet 3. Spondylolisthesis of lumbar region M43.16 HYDROcodone-acetaminophen (NORCO) 5-325 mg per tablet 4. Radiculopathy, lumbar region M54.16 HYDROcodone-acetaminophen (NORCO) 5-325 mg per tablet 5. DDD (degenerative disc disease), lumbar M51.369 HYDROcodone-acetaminophen (NORCO) 5-325 mg per tablet 02/02/2023 PROMIS CAT Pain Interference PROMIS Pain Interference T-Score (range: 10 - 90) 66 (moderate) PROMIS Pain Interference Percentile 5 PROMIS Adult Short Form-Global Health Score (Mental) 28.4 (Poor) OARRS Report: Reviewed: The patient's OARRS report was reviewed and is consistent with the reported medication use. Plan Injection history was reviewed. Medication use and compliance were reviewed. 1. Continue medication management through the Pain Management Center 2. The following approved medication requests have been transmitted electronically. Requested Prescriptions Signed Prescriptions Disp Refills HYDROcodone-acetaminophen (NORCO) 5-325 mg per tablet 28 tablet 0 Sig: Take 1-2 tablets by mouth every 6 hours as needed (more content not included)... [facility] 05-31-2024 History of Present illness Narrative Images from the original note were not included. Subjective Roseann Viveros presents to [facility] Department for a follow up appointment. Since the last visit, Roseann Viveros states the pain has been same. Current pain intensity is 8 on a scale of 0-10. Pain located in Back area and radiates to bilateral legs Pain described as sharp Symptoms interfere with everything.. Pain is exacerbated by trying to get out of bed. Pain is mitigated by medications and heat. The patient is overall improved with the injections by 50%. The medications are partially effective. The patient states the last dose of . Citra was taken a while ago. Well over a month per pt. Robaxin was taken this morning at 7a Patient Entered Questionnaires PROMIS Score Percentiles 02/02/2023 PROMIS Global Health Scale Physical Health Percentile 2 Mental Health Percentile 2 02/02/2023 Physical Health Physical Function Percentile 12 Pain Interference Percentile 5 Percentiles provide an indication of how the patient's score ranks in relation to the general population. Higher percentile rankings indicate better function/quality of life. 50th percentile is the average of the general population and indicates half of respondents had a worse score. > 31st percentile is within normal limits or better * < 31st percentile is at least SD worse than population, which may be clinically relevant < 16th percentile is at least 1 SD worse than population and warrants attention Review of Systems Constitutional: (-) Weight Gain (-) Weight Loss (+) Fatigue Cardiovascular: (-) hx heart surgery (-) Pacemaker Respiratory: (+) Shortness of Breath (-) Cough (+) Snoring Gastrointestinal: (-) Incontinence (-) Diarrhea (-) Constipation (-) Nausea/Vomiting Endocrine: (-) Thyroid Disorder (+) Diabetes Hematologic: (-) Prolonged Bleeding (+) Easy Bruising Genitourinary: (-) Incontinence (-) Frequency (-) Urinary Urgency Skin: (-) Open sores/wound Neurologic: (+) Headache (-) Double Vision Psychiatric: (+) Depression (+) Anxiety (-) Personal History of Alcohol or Substance Abuse (-) Family History of Alcohol or Substance Abuse Chief Complaint Patient presents with: Pain Refill Request Physical Examination Pulse 62 Ht 5' 2 (1.58m) Wt 127 lb 13.9 oz (58.0kg) SpO2 97% LMP 09/01/2010 BMI 23.38 kg/(m^2). General:well appearing and alert Skin: Skin color, texture, turgor normal, no rashes or lesions HEENT: normal Cardiovascular: Regular, rate and rhythm Lungs: Normal respiratory rate and rhythm, unlabored on room air Musculoskeletal: Back: Tenderness on palpation over the lumbar spine. , Tenderness over the bilateral lumbar paraspinal muscles, Extremities: Extremities normal. No deformities, edema, or skin discoloration Neurological: Mental Status: alert Motor Strength: Motor strength and tone are 5/5 all throughout. Sensory: Not Examined Gait: Normal. Trigger points: lumbosacral spine muscles and gluteal muscles. Assessment Assessment : Patient presents for a follow-up visit Patient has chronic low back pain that radiates down the bilateral lower extremities to the feet Her last transforaminal injections were in 2018. She would like to repeat injections but she has transportation issues Patient takes Citra as needed and Robaxin to help manage her chronic pain She reports no new issues or side effects from medications Encounter Diagnosis ICD-10-CM 1. Degeneration of intervertebral disc of lumbar region with discogenic back pain M51.360 2. Spinal stenosis of lumbar region with neurogenic claudication M48.062 HYDROcodone-acetaminophen (NORCO) 5-325 mg per tablet 3. Spondylolisthesis of lumbar region M43.16 HYDROcodone-acetaminophen (NORCO) 5-325 mg per tablet 4. Radiculopathy, lumbar region M54.16 HYDROcodone-acetaminophen (NORCO) 5-325 mg per tablet 5. DDD (degenerative disc disease), lumbar M51.369 HYDROcodone-acetaminophen (NORCO) 5-325 mg per tablet 02/02/2023 PROMIS CAT Pain Interference PROMIS Pain Interference T-Score (range: 10 - 90) 66 (moderate) PROMIS Pain Interference Percentile 5 PROMIS Adult Short Form-Global Health Score (Mental) 28.4 (Poor) OARRS Report: Reviewed: The patient's OARRS report was reviewed and is consistent with the reported medication use. Plan Injection history was reviewed. Medication use and compliance were reviewed. 1. Continue medication management through the Pain Management Center 2. The following approved medication requests have been transmitted electronically. Requested Prescriptions Signed Prescriptions Disp Refills HYDROcodone-acetaminophen (NORCO) 5-325 mg per tablet 28 tablet 0 Sig: Take 1-2 tablets by mouth every 6 hours as needed for up to 7 days. methocarbamol (ROBAXIN-750) 750 mg tablet 90 tablet 2 Sig: Take 1 tablet by mouth three times a day as needed. 3. Interventional procedure options discussed. May repeat TFESI if she can get stable transportation 4. Encouraged regular home exercise program. 5) F/U in 3 months The level of medical decision making for this encounter was low level. I spent a total of 20 minutes on the date of the service which included preparing to see the patient, uqyn-dj-tvin patient care, completing clinical documentation, performing a medically appropriate examination, and ordering medications, tests, or procedures. 1. This document has been created with the use of voice recognition technology. It may contain inaccuracies: (e.g. misspellings, inaccurate syntax or word sense) that have escaped review. 2. The physician, nursing staff and medical assistants are a major part of YOUR TREATMENT TEAM and will be handling your phone calls and inquiries, if any. Unless explicitly told otherwise at the time of your office visit, your study results and ensuing treatment plans will be discussed during your follow-up appointment. If you do not have a follow-up appointment and wish to discuss any issues, please set up an appointment. 3. It is my practice to not fill disability or any other insurance-related forms/documentation. All of the office notes, study results, and other pertinent documentation generated as part of your evaluation will be available to you and to your Primary Care Physician (PCP). Use of this material to complete such forms will be at the discretion of your PCP/referring physician. The above plan and management options were discussed at length with patient. Patient is in agreement with the above and verbalized understanding. Barbara Bran APRN, CNP May 31, 2024 documented in this encounter [facility] 04-28-2024 Telephone encounter Note Prescription Refill Information The patient has been identified by name and date of : Yes Caregiver verified no other encounters exist for this prescription request: Yes Caregiver confirmed with patient/requestor that no other refills are due, in the near future, with this provider at this time: Yes The last office visit in the department: 01/24/24 Does the patient have a future office visit with this provider/department: Yes Requested Prescriptions Pending Prescriptions Disp Refills atorvastatin (LIPITOR) 80 mg tablet 90 tablet 3 Sig: Take 1 tablet by mouth once daily. calcium-cholecalciferol, D3, (OSCAL+D 250) 250 mg-3.125 mcg (125 unit) per tablet 60 tablet 11 Sig: Take 1 tablet by mouth two times a day. Cholecalciferol, Vitamin D3, 25 mcg (1,000 unit) cap 30 capsule 11 Sig: Take 1 capsule by mouth once daily. empagliflozin (JARDIANCE) 10 mg tablet 90 tablet 3 Sig: Take 1 tablet by mouth daily with breakfast. sertraline (ZOLOFT) 100 mg tablet 90 tablet 3 Sig: Take 1 tablet by mouth once daily. Heike Lara LPN April 28, 2024 9:56 AM [facility] 04-28-2024 Miscellaneous Notes Prescription Refill Information The patient has been identified by name and date of : Yes Caregiver verified no other encounters exist for this prescription request: Yes Caregiver confirmed with patient/requestor that no other refills are due, in the near future, with this provider at this time: Yes The last office visit in the department: 01/24/24 Does the patient have a future office visit with this provider/department: Yes Requested Prescriptions Pending Prescriptions Disp Refills atorvastatin (LIPITOR) 80 mg tablet 90 tablet 3 Sig: Take 1 tablet by mouth once daily. calcium-cholecalciferol, D3, (OSCAL+D 250) 250 mg-3.125 mcg (125 unit) per tablet 60 tablet 11 Sig: Take 1 tablet by mouth two times a day. Cholecalciferol, Vitamin D3, 25 mcg (1,000 unit) cap 30 capsule 11 Sig: Take 1 capsule by mouth once daily. empagliflozin (JARDIANCE) 10 mg tablet 90 tablet 3 Sig: Take 1 tablet by mouth daily with breakfast. sertraline (ZOLOFT) 100 mg tablet 90 tablet 3 Sig: Take 1 tablet by mouth once daily. Heike Lara LPN April 28, 2024 9:56 AM documented in this encounter [facility] 04-27-2024 Telephone encounter Note The following approved medication requests have been transmitted electronically. Requested Prescriptions Pending Prescriptions Disp Refills albuterol HFA (PROVENTIL HFA, VENTOLIN HFA) 90 mcg/actuation inhaler 18 g 1 Sig: Inhale 2 Puffs as instructed every 6 hours as needed for wheezing/shortness of breath. Rabia Lewis APRN.STAVE SAW OPERATOR [facility] 04-27-2024 Miscellaneous Notes The following approved medication requests have been transmitted electronically. Requested Prescriptions Pending Prescriptions Disp Refills albuterol HFA (PROVENTIL HFA, VENTOLIN HFA) 90 mcg/actuation inhaler 18 g 1 Sig: Inhale 2 Puffs as instructed every 6 hours as needed for wheezing/shortness of breath. Rabia Lewis APRN.CNP The patient has been identified by name and date of : Yes Caregiver verified no other encounters exist for this prescription request: Yes Caregiver confirmed with patient/requestor that no other refills are due, in the near future, with this provider at this time: Yes The last office visit in the department: 01/24/2024 Does the patient have a future office visit with this provider/department: Yes 08/02/2024 Requested Prescriptions Pending Prescriptions Disp Refills albuterol HFA (PROVENTIL HFA, VENTOLIN HFA) 90 mcg/actuation inhaler 18 g 1 Sig: Inhale 2 Puffs as instructed every 6 hours as needed for wheezing/shortness of breath. Padmini Rush RN April 27, 2024 2:55 PM documented in this encounter [facility] 04-27-2024 Telephone encounter Note The patient has been identified by name and date of : Yes Caregiver verified no other encounters exist for this prescription request: Yes Caregiver confirmed with patient/requestor that no other refills are due, in the near future, with this provider at this time: Yes The last office visit in the department: 01/24/2024 Does the patient have a future office visit with this provider/department: Yes 08/02/2024 Requested Prescriptions Pending Prescriptions Disp Refills albuterol HFA (PROVENTIL HFA, VENTOLIN HFA) 90 mcg/actuation inhaler 18 g 1 Sig: Inhale 2 Puffs as instructed every 6 hours as needed for wheezing/shortness of breath. Padmini Rush RN April 27, 2024 2:55 PM [facility] 04-26-2024 Telephone encounter Note The patient has been identified by name and date of : Yes Caregiver verified no other encounters exist for this prescription request: Yes Caregiver confirmed with patient/requestor that no other refills are due, in the near future, with this provider at this time: Yes The last office visit in the department: 01/24/2024 Does the patient have a future office visit with this provider/department: Yes 08/02/2024 Requested Prescriptions Pending Prescriptions Disp Refills meclizine (ANTIVERT) 25 mg tab 90 tablet 1 Sig: Take 1 tablet by mouth three times a day as needed. Padmini Rush RN April 26, 2024 1:41 PM [facility] 04-26-2024 Miscellaneous Notes The patient has been identified by name and date of : Yes Caregiver verified no other encounters exist for this prescription request: Yes Caregiver confirmed with patient/requestor that no other refills are due, in the near future, with this provider at this time: Yes The last office visit in the department: 01/24/2024 Does the patient have a future office visit with this provider/department: Yes 08/02/2024 Requested Prescriptions Pending Prescriptions Disp Refills meclizine (ANTIVERT) 25 mg tab 90 tablet 1 Sig: Take 1 tablet by mouth three times a day as needed. Padmini Rush RN April 26, 2024 1:41 PM documented in this encounter [facility] 03-20-2024 History of Present illness Narrative Images from the original note were not included. Tracy Sauer MD Interventional Cardiology [address] [place] [address] [phone] Chief Complaint Patient presents with: Establish Care HISTORY OF PRESENT ILLNESS: Ms. Viveros is a 58 year old female seen in my office today for assessment and management history of coronary artery disease moderate in severity particularly circumflex hyperlipidemia hypertension diabetes with chronic kidney disease patient continues to be very restricted in terms of her symptoms significant exertional dyspnea at the baseline worse with exertion denies any chest pain nuclear stress test was performed shows no evidence of ischemia with normal left ventricular function Cardiac Risk Factors age (male over 45, female over 55), hyperlipidemia, history of smoking, diabetes, hypertension, family history of CAD PAST MEDICAL HISTORY Diagnosis Date Anxiety 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 (HCC) 08/31/2016 Depression Diabetes mellitus (HCC) 2010 No nephropathy, neuropathy, retinopathy DJD (degenerative joint disease) of lumbar spine Hyperlipidemia 2010 Low back pain [id number] Unspecified , without mention of complication, unspecified 2 Miscarriage's PAST SURGICAL HISTORY Procedure Laterality Date DELIVERY ONLY , low cervical, (2) DILATION & CURETTAGE DX&/THER NONOBSTETRIC Dilation & curettage x 2 LIGATE FALLOPIAN TUBE 2001 NEUROPLASTY &/TRANSPOS MEDIAN NRV CARPAL TUNNE Bilateral 09/18/2016 THYROID FINE NEEDLE ASPIRATION Right 07/07/2021 THYROID FINE NEEDLE ASPIRATION 08/01/2021 TONSILLECTOMY & ADENOIDECTOMY <AGE 12 FAMILY HISTORY Problem Relation Age of Onset Diabetes Mother Heart Mother Cataract Mother Emphysema Father Cancer Father other (Kidney Failure) Father Arthritis Paternal Aunt Arthritis Paternal Grandmother Hands Social History Tobacco Use Smoking status: Former Current packs/day: 0.00 Average packs/day: 0.3 packs/day for 20.0 years (6.0 ttl pk-yrs) Types: Cigarettes Start date: 03/24/2003 Quit date: 03/24/2023 Years since quittin.9 Smokeless tobacco: Never Tobacco comments: TRYING TO QUIT-SMOKES 1-2 A DAY as of 11/28/15 Vaping Use Vaping status: current everyday user Substances: Nicotine, Flavoring Devices: Disposable Substance Use Topics Alcohol use: Not Currently Comment: Quit 2001 Drug use: Not Currently Types: Marijuana ALLERGIES Allergen Reactions Bees Bee Venom Protein (* Unknown, Swelling Medications: Current Outpatient Medications Medication Sig Dispense Refill methocarbamol (ROBAXIN-750) 750 mg tablet Take 1 tablet by mouth three times a day as needed. 90 tablet 2 atenolol (TENORMIN) 50 mg tablet Take 1 tablet by mouth once daily. 90 tablet 3 famotidine (PEPCID) 10 mg tablet Take 1 tablet by mouth once daily. 90 tablet 3 linaGLIPtin (TRADJENTA) 5 mg tab Take 1 tablet by mouth once daily. 90 tablet 3 buPROPion XL (WELLBUTRIN XL) 150 mg 24 hr tablet Take 1 tablet by mouth once daily. 90 tablet 3 meclizine (ANTIVERT) 25 mg tab Take 1 tablet by mouth three times a day as needed. 90 tablet 1 albuterol HFA (PROVENTIL HFA, VENTOLIN HFA) 90 mcg/actuation inhaler Inhale 2 Puffs as instructed every 6 hours as needed for wheezing/shortness of breath. 18 g 1 nitroglycerin sublingual (NITROQUICK) 0.4 mg SL tablet DISSOLVE 1 (ONE) TABLET UNDER THE TONGUE NEEDED FOR CHEST PAIN. MAY REPEAT EVERY 5 MINUTES IF NEEDED; MAX OF 3 DOSES. IF NO RELIEF, COURTNEY 25 tablet 3 isosorbide mononitrate ER (IMDUR) 30 mg 24 hr tablet Take 1 tablet by mouth once daily. Take w/ 60 mg tablet for total daily dose of 90 mg. 90 tablet 3 isosorbide mononitrate ER (IMDUR) 60 mg 24 hr tablet Take 1 tablet by mouth once daily. Take w/ 30 mg tablet for total daily dose of 90 mg. 90 tablet 3 aspirin, enteric coated (ASPIRIN, ENTERIC COATED) 81 mg EC tablet Take 1 tablet by mouth once daily. 90 tablet 3 Cholecalciferol, Vitamin D3, 25 mcg (1,000 unit) cap Take 1 capsule by mouth once daily. 30 capsule 11 calcium-cholecalciferol, D3, (OSCAL+D 250) 250 mg-3.125 mcg (125 unit) per tablet Take 1 tablet by mouth two times a day. 60 tablet 11 empagliflozin (JARDIANCE) 10 mg tablet Take 1 tablet by mouth daily with breakfast. 90 tablet 3 atorvastatin (LIPITOR) 80 mg tablet Take 1 tablet by mouth once daily. 90 tablet 3 sertraline (ZOLOFT) 100 mg tablet Take 1 tablet by mouth once daily. 90 tablet 3 blood sugar diagnostic (BLOOD GLUCOSE TEST) test strip Test blood sugar(s) 1 times daily. Dx: Type 2 DM - Controlled E11.9 Insulin: No 50 Strip 11 blood sugar diagnostic (TRUE METRIX GLUCOSE TEST STRIP) test strip testing once daily DX E11.9 Insulin No 50 Strip 5 Lancets lancets Test blood sugar(s) One time daily. Dx: Type 2 DM - Controlled E11.9 Insulin: No. 100 Each 11 Blood Pressure Monitor Use as directed, Monitor and arm cuff. Dx: I25.119, N18.30, I.10 1 Kit 0 No current facility-administered medications for this visit. Review of Systems Constitutional: Negative for chills, diaphoresis, fever, malaise/fatigue and weight loss. HENT: Negative for congestion, ear discharge, ear pain, hearing loss, nosebleeds, sinus pain, sore throat and tinnitus. Eyes: Negative for blurred vision, double vision, photophobia, pain, discharge and redness. Respiratory: Positive for shortness of breath. Negative for cough, hemoptysis, sputum production, wheezing and stridor. Cardiovascular: Negative for chest pain, palpitations, orthopnea, claudication, leg swelling and PND. Gastrointestinal: Negative for abdominal pain, blood in stool, constipation, diarrhea, heartburn, melena, nausea and vomiting. Genitourinary: Negative for dysuria, flank pain, frequency, hematuria and urgency. Musculoskeletal: Negative for back pain, falls, joint pain, myalgias and neck pain. Skin: Negative for itching and rash. Neurological: Negative for dizziness, tingling, tremors, sensory change, speech change, focal weakness, seizures, loss of consciousness, weakness and headaches. Endo/Heme/Allergies: Negative for environmental allergies and polydipsia. Does not bruise/bleed easily. Psychiatric/Behavioral: Negative for depression, hallucinations, memory loss, substance abuse and suicidal ideas. The patient is not nervous/anxious and does not have insomnia. Physical Examination: Vitals:BP 124/74 Pulse 86 Ht 5' 2 (1.58m) Wt 127 lb 12.8 oz (58.0kg) SpO2 97% LMP 09/01/2010 BMI 23.37 kg/(m^2). BP w/Orthostatic Vitals Date and Time Orthostatic BP Orthostatic Pulse BP Pulse BP Position BP Site BP Cuff Size 03/20/24 1348 -- -- 124/74 86 -- Right Arm -- Last 2 Encounter Wt Readings: Date: Wt: 03/20/2024 58 kg (127 lb 12.8 oz) 01/24/2024 56.7 kg (125 lb) Physical Exam Constitutional: General: She is not in acute distress. Appearance: She is not diaphoretic. HENT: Head: Normocephalic and atraumatic. Right Ear: External ear normal. Left Ear: External ear normal. Nose: Nose normal. Mouth/Throat: Pharynx: Oropharynx is clear. Eyes: General: Right eye: No discharge. Left eye: No discharge. Conjunctiva/sclera: Conjunctivae normal. Pupils: Pupils are equal, round, and reactive to light. Cardiovascular: Rate and Rhythm: Normal rate and regular rhythm. Heart sounds: Normal heart sounds, S1 normal and S2 normal. No murmur heard. No friction rub. No gallop. No S3 or S4 sounds. Pulmonary: Effort: Pulmonary effort is normal. No respiratory distress. Breath sounds: Normal breath sounds. No wheezing or rales. Chest: Chest wall: No tenderness. Abdominal: General: Abdomen is flat. Musculoskeletal: General: Normal range of motion. Cervical back: Normal range of motion and neck supple. Skin: General: Skin is warm and dry. Neurological: Mental Status: She is alert and oriented to person, place, and time. Psychiatric: Mood and Affect: Mood normal. Thought Content: Thought content normal. Judgment: Judgment normal. Pertinent Labs: CBC: Hemoglobin (g/dL) Date Value 02/07/2024 13.3 06/18/2021 12.6 Hematocrit (%) Date Value 02/07/2024 41.2 06/18/2021 39.0 WBC (k/uL) Date Value 02/07/2024 6.67 06/18/2021 7.03 Platelet Count (k/uL) Date Value 02/07/2024 212 06/18/2021 252 BMP: Glucose (mg/dL) Date Value 02/07/2024 159 06/18/2021 125 Potassium (mmol/L) Date Value 02/07/2024 3.8 06/18/2021 4.3 Sodium (mmol/L) Date Value 02/07/2024 138 06/18/2021 139 Chloride (mmol/L) Date Value 02/07/2024 106 06/18/2021 103 CO2 (mmol/L) Date Value 02/07/2024 21 06/18/2021 25 Creatinine (mg/dL) Date Value 02/07/2024 1.08 06/18/2021 1.33 BUN (mg/dL) Date Value 02/07/2024 16 06/18/2021 11 Anion Gap (mmol/L) Date Value 02/07/2024 11 06/18/2021 11 Calcium (mg/dL) Date Value 06/18/2021 10.2 Calcium, Total (mg/dL) Date Value 02/07/2024 10.2 INR: Lipid Profile: Cholesterol, Total Date Value Ref Range Status 06/10/2023 170 <200 mg/dL Final Comment: <200 mg/dL, Desirable 200-239 mg/dL, Borderline high >239 mg/dL, High HDL Cholesterol Date Value Ref Range Status 06/10/2023 45 >39 mg/dL Final Comment: 40-59 mg/dL, Acceptable >59 mg/dL, High: Negative risk factor for coronary heart disease <40 mg/dL, Low: Positive risk factor for coronary heart disease LDL Cholesterol Date Value Ref Range Status 06/10/2023 82 <100 mg/dL Final Comment: <100 mg/dL, Optimal 100-129 mg/dL, Near optimal/above optimal 130-159 mg/dL, Borderline high 160-189 mg/dL, High >189 mg/dL, Very high Secondary prevention optimal LDL Cholesterol levels are recommended to be < 70 mg/dL Triglyceride Date Value Ref Range Status 06/10/2023 216 (H) <150 mg/dL Final Comment: <150 mg/dL, Normal 150-199 mg/dL, Borderline high 200-499 mg/dL, High >499 mg/dL, Very high Hemoglobin A1C: No results found for: HGBA1C TSH: No results found for: TSHREFL Prior Cardiac Testing ekg Assessment and Plan: 58 years old female patient with diffuse coronary artery disease multiple cardiac risk factor for obstructive CAD ASSESSMENT/PLAN: 1. Screening for ischemic heart disease - ICD9: V81.0, ICD10: Z13.6 (primary diagnosis) Patient continued to be having exertional dyspnea would recommend cardiac catheterization patient is will think about such possibility risk-benefit alternative this procedure was explained to the patient - ECG COMPLETE 2. Primary hypertension - ICD9: 401.9, ICD10: I10 - Controlled - Continue current medications - Recommend home blood pressure monitoring, to bring results to next visit - Encouraged sodium restriction, DASH or Mediterranean diet - Recommend regular aerobic exercise - ECG COMPLETE 3. 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 (HCC) - ICD9: 414.01, 413.9, ICD10: I25.119 Moderate degree with negative stress test - ECG COMPLETE 4. Mixed hyperlipidemia - ICD9: 272.2, ICD10: E78.2 - Controlled - Continue current medications - Counseled on healthy diet and regular exercise - ECG COMPLETE Tracy Sauer MD Follow up plannin months Electronically signed by Tracy Sauer MD on March 20, 2024, 3:28 PM The above note was partially created using a dictation recognition software. A reasonable attempt has been made to correct any errors. documented in this encounter [facility] 02-22-2024 History of Present illness Narrative Images from the original note were not included. Subjective oRseann Viveros presents to [facility] for a follow up appointment. Since the last visit, Roseann Viveros states the pain has been about the same, just a little worse. Current pain intensity is 9 on a scale of 0-10. Pain located in lower back area and radiates down left LE. Pain described as charley horse, sharp and aching. Symptoms interfere with walking, sleeping, and sitting. Pain is exacerbated by unable to pinpoint exacerbating factors/positions. Pain is mitigated by medications. The medications are effective. The patient states the last dose of Citra was taken maybe the beginning of last month and Robaxin were taken this morning. Patient Entered Questionnaires PROMIS Score Percentiles 02/02/2023 PROMIS Global Health Scale Physical Health Percentile 2 Mental Health Percentile 2 02/02/2023 Physical Health Physical Function Percentile 12 Pain Interference Percentile 5 Percentiles provide an indication of how the patient's score ranks in relation to the general population. Higher percentile rankings indicate better function/quality of life. 50th percentile is the average of the general population and indicates half of respondents had a worse score. > 31st percentile is within normal limits or better * < 31st percentile is at least SD worse than population, which may be clinically relevant < 16th percentile is at least 1 SD worse than population and warrants attention Review of Systems Constitutional: (-) Weight Gain (-) Weight Loss (-) Fatigue Cardiovascular: (-) hx heart surgery (-) Pacemaker Respiratory: (-) Shortness of Breath (-) Cough (-) Snoring Gastrointestinal: (-) Incontinence (-) Diarrhea (-) Constipation (-) Nausea/Vomiting Endocrine: (-) Thyroid Disorder (+) Diabetes Hematologic: (-) Prolonged Bleeding (-) Easy Bruising Genitourinary: (-) Incontinence (-) Frequency (-) Urinary Urgency Skin: (-) Open sores/wound Neurologic: (-) Headache (-) Double Vision Psychiatric: (-) Depression (-) Anxiety (-) Personal History of Alcohol or Substance Abuse (-) Family History of Alcohol or Substance Abuse Chief Complaint Patient presents with: Back Pain Refill Request Physical Examination LMP 09/01/2010 General:well appearing and alert Skin: Skin color, texture, turgor normal, no rashes or lesions HEENT: normal Cardiovascular: Regular, rate and rhythm Lungs: Normal respiratory rate and rhythm, unlabored on room air Musculoskeletal: Back: Tenderness on palpation over the lumbar spine. , Tenderness over the left lumbar paraspinal muscles, ROM intact Extremities: Normal exam of the extremities Neurological: Mental Status: alert Sensory: Not Examined Gait: Antalgic. Trigger points: lumbosacral spine muscles. Assessment Assessment : Patient presents for follow-up visit Patient has a history of chronic low back pain that radiates down the left lower extremity to the foot Patient reports that she has been experiencing charley horses Patient takes Citra and Robaxin to help manage her chronic pain Encounter Diagnosis ICD-10-CM 1. DDD (degenerative disc disease), lumbar M51.36 HYDROcodone-acetaminophen (NORCO) 5-325 mg per tablet 2. Spinal stenosis of lumbar region with neurogenic claudication M48.062 HYDROcodone-acetaminophen (NORCO) 5-325 mg per tablet 3. Spondylolisthesis of lumbar region M43.16 HYDROcodone-acetaminophen (NORCO) 5-325 mg per tablet 4. Radiculopathy, lumbar region M54.16 HYDROcodone-acetaminophen (NORCO) 5-325 mg per tablet 02/02/2023 PROMIS CAT Pain Interference PROMIS Pain Interference T-Score (range: 10 - 90) 66 (moderate) PROMIS Pain Interference Percentile 5 PROMIS Adult Short Form-Global Health Score (Mental) 28.4 (Poor) OARRS Report: Reviewed: The patient's OARRS report was reviewed and is consistent with the reported medication use. Plan Injection history was reviewed. Medication use and compliance were reviewed. 1. Continue medication management through the Pain Management [facility] 2. The following approved medication requests have been transmitted electronically. Requested Prescriptions Signed Prescriptions Disp Refills HYDROcodone-acetaminophen (NORCO) 5-325 mg per tablet 28 tablet 0 Sig: Take 1-2 tablets by mouth every 6 hours as needed for up to 7 days. methocarbamol (ROBAXIN-750) 750 mg tablet 90 tablet 2 Sig: Take 1 tablet by mouth three times a day as needed. 3. Interventional procedure options discussed. none 4. Encouraged regular home exercise program. 5) F/U in 3 months The level of medical decision making for this encounter was low level. I spent a total of 20 minutes on the date of the service which included preparing to see the patient, [id number] patient care, completing clinical documentation, performing a medically appropriate examination, and ordering medications, tests, or procedures. 1. This document has been created with the use of voice recognition technology. It may contain inaccuracies: (e.g. misspellings, inaccurate syntax or word sense) that have escaped review. 2. The physician, nursing staff and medical assistants are a major part of YOUR TREATMENT TEAM and will be handling your phone calls and inquiries, if any. Unless explicitly told otherwise at the time of your office visit, your study results and ensuing treatment plans will be discussed during your follow-up appointment. If you do not have a follow-up appointment and wish to discuss any issues, please set up an appointment. 3. It is my practice to not fill disability or any other insurance-related forms/documentation. All of the office notes, study results, and other pertinent documentation generated as part of your evaluation will be available to you and to your Primary Care Physician (PCP). Use of this material to complete such forms will be at the discretion of your PCP/referring physician. The above plan and management options were discussed at length with patient. Patient is in agreement with the above and verbalized understanding. Barbara Bran APRN, CNP February 22, 2024 documented in this encounter [facility] 02-11-2024 Telephone encounter Note Patient returned call and went over results, notes from Rabia Lewis REGISTRY NP with understanding. Also asking for ultrasound results of kidney. We received your renal ultrasound, which was normal. Please follow-up with nephrology, as planned. Thanks, Sakshi Li APRN.CNP Went over results, notes from Sakshi Li REGISTRY NP with understanding. Gave patient my chart help line phone number since she can not get into her my chart right now. [facility] 02-11-2024 Miscellaneous Notes Patient returned call and went over results, notes from Rabia Lewis REGISTRY NP with understanding. Also asking for ultrasound results of kidney. We received your renal ultrasound, which was normal. Please follow-up with nephrology, as planned. Thanks, Sakshi Li APRN.STAVE SAW OPERATOR Went over results, notes from Sakshi Li REGISTRY NP with understanding. Gave patient my chart help line phone number since she can not get into her my chart right now. Left message for patient to return call. Annmarie Babb Ma ----- Message from Rabia Lewis sent at 02/08/2024 12:16 PM EDT ----- Diabetes control is slipping. Watch the sweets and simple carbohydrates such as white flour products, white rice, and potatoes. Choose a whole-grain whenever possible. Ionized calcium level remains stable but your parathyroid hormone is normal. Stage III kidney disease is slightly improved. documented in this encounter [facility] 02-10-2024 Telephone encounter Note Left message for patient to return call. Annmarie Babb Ma [facility] 02-10-2024 Telephone encounter Note ----- Message from Rabia Lewis sent at 02/08/2024 12:16 PM EDT ----- Diabetes control is slipping. Watch the sweets and simple carbohydrates such as white flour products, white rice, and potatoes. Choose a whole-grain whenever possible. Ionized calcium level remains stable but your parathyroid hormone is normal. Stage III kidney disease is slightly improved. [facility] 02-07-2024 History of Present illness Narrative Radiology Service Progress Note PATIENT NAME: Roseann Viveros DATE OF SERVICE: February 07, 2024 TIME: 2:53 PM PATIENT IDENTITY VERIFICATION COMPLETED USING TWO (2) IDENTIFIERS: Name and Date of confirmed by patient verbally. FALL SCREENING: Has the patient had 2 falls in the last year or 1 fall with injury or currently using an Ambulatory Assistive Device (Walker, Cane, Wheelchair, Crutches, etc.)? No PATIENT GENDER DATA: Female. status: : No status: NO. PATIENT RELEVANT IMPLANT DATA REVIEWED: Not Applicable PATIENT PRESENTS WITH AN IMPLANTABLE OR ATTACHED MANAGER UNIVERSAL: No RADIOLOGY DEPARTMENT: Ultrasound PERIPHERAL IV DATA: Not applicable SIGNED BY: Jeanette Zendejas RDMS RVT February 07, 2024 2:53 PM documented in this encounter [facility] 01-24-2024 History of Present illness Narrative Patient presents with: Follow Up HPI: Patient presents today for office visit for follow up. Left elbow pain. Does not recall any injury. Sore over medial epicondyle. No redness or warmth in the elbow. Sees pain management. Saw pharmacy in August GERD: no issues with heartburn. DM:sugars have been up and down. Ddid have a mild hypoglycemic spell a few weeks ago. CARDIO:no chest pain or shortness of breath. No edema. PSYCH:emotionally is doing well. HLD:does get occasional myalgias. Sees Cardiology next month. Was to see nephrology in October an no showed. Reinforced importance of follow up. Did not do her renal us. Avoiding naids. Bp is stable. Still needs several meds adjusted for her renal functions. Latest Ref Rng 08/13/2023 09/22/2023 WBC 3.70 - 11.00 k/uL 7.06 RBC 3.90 - 5.20 m/uL 4.49 Hemoglobin 11.5 - 15.5 g/dL 12.8 Hematocrit 36.0 - 46.0 % 40.7 MCV 80.0 - 100.0 fL 90.6 MCH 26.0 - 34.0 pg 28.5 MCHC 30.5 - 36.0 g/dL 31.4 RDW-CV 11.5 - 15.0 % 14.2 Platelet Count 150 - 400 k/uL 259 MPV 9.0 - 12.7 fL 10.3 Neut% % 61.6 Abs Neut (ANC) 1.45 - 7.50 k/uL 4.34 Lymph% % 25.6 Abs Lymph 1.00 - 4.00 k/uL 1.81 [place]% % 8.2 Abs [place] <0.87 k/uL 0.58 Eosin% % 3.5 Abs Eosin <0.46 k/uL 0.25 Baso% % 1.0 Abs Baso <0.11 k/uL 0.07 Immature Gran % % 0.1 IMMATURE GRANS (ABS) <0.10 k/uL <0.03 NRBC /100 WBC 0.0 Absolute nRBC <0.01 k/uL <0.01 DTYPE Auto Color Yellow Yellow Clarity Clear Clear Glucose, Urine Negative 3+ ! Bilirubin, Urine Negative Negative Ketones, Urine Negative Negative Specific [place], Ur 1.005 - 1.030 1.019 Hemoglobin/Blood,Ur Negative Trace ! pH, Urine <8.5 6.0 Protein, Urine Negative Negative Urobilinogen 0.2-1.0 EU/dL 0.2 EU/dL Nitrites Negative Negative Leukest Negative Trace ! WBC, Urine 0-5 /HPF 0-5 /HPF RBC, Urine 0-2 /HPF 0-2 /HPF Bacteria Negative /HPF Negative Epithelial Cells /HPF None Seen Hyaline Cast 0 /LPF 0 /LPF Glucose 74 - 99 mg/dL 42 (L) 109 (H) BUN 7 - 21 mg/dL 16 20 Creatinine 0.58 - 0.96 mg/dL 1.73 (H) 1.95 (H) Sodium 136 - 144 mmol/L 142 138 Potassium 3.7 - 5.1 mmol/L 4.4 4.7 Chloride 97 - 105 mmol/L 104 101 CO2 22 - 30 mmol/L 27 25 Anion Gap 9 - 18 mmol/L 11 12 Calcium 8.5 - 10.2 mg/dL 10.5 (H) 10.3 (H) eGFR >=60 mL/min/1.73m 34 (L) 29 (L) Normalized Calcium 1.08 - 1.30 mmol/L 1.32 (H) Ionized Calcium 1.08 - 1.30 mmol/L 1.33 (H) WSR 0 - 20 mm/hr 2 Uric Acid 2.5 - 6.6 mg/dL 5.9 Vitamin D 25 Hydroxy 31.0 - 80.0 ng/mL 43.3 PTH, Intact 15 - 65 pg/mL 45 Phosphorus 2.7 - 4.8 mg/dL 3.4 Legend: (L) Low (H) High ! Abnormal MEDICATIONS: Current Outpatient Medications Medication Sig meclizine (ANTIVERT) 25 mg tab Take 1 tablet by mouth three times a day as needed. buPROPion SR (WELLBUTRIN SR) 150 mg 12 hr tablet Take 1 tablet by mouth every morning and 1 tablet at dinner linaGLIPtin (TRADJENTA) 5 mg tab Take 1 tablet by mouth once daily. isosorbide mononitrate ER (IMDUR) 30 mg 24 hr tablet Take 1 tablet by mouth once daily. Take w/ 60 mg tablet for total daily dose of 90 mg. isosorbide mononitrate ER (IMDUR) 60 mg 24 hr tablet Take 1 tablet by mouth once daily. Take w/ 30 mg tablet for total daily dose of 90 mg. aspirin, enteric coated (ASPIRIN, ENTERIC COATED) 81 mg EC tablet Take 1 tablet by mouth once daily. famotidine (PEPCID) 20 mg tablet Take 1 tablet by mouth two times a day. Cholecalciferol, Vitamin D3, 25 mcg (1,000 unit) cap Take 1 capsule by mouth once daily. calcium-cholecalciferol, D3, (OSCAL+D 250) 250 mg-3.125 mcg (125 unit) per tablet Take 1 tablet by mouth two times a day. empagliflozin (JARDIANCE) 10 mg tablet Take 1 tablet by mouth daily with breakfast. atorvastatin (LIPITOR) 80 mg tablet Take 1 tablet by mouth once daily. sertraline (ZOLOFT) 100 mg tablet Take 1 tablet by mouth once daily. atenolol (TENORMIN) 50 mg tablet Take 1 tablet by mouth once daily. albuterol HFA (PROVENTIL HFA, VENTOLIN HFA) 90 mcg/actuation inhaler Inhale 2 Puffs as instructed every 6 hours as needed for wheezing/shortness of breath. nitroglycerin sublingual (NITROQUICK) 0.4 mg SL tablet DISSOLVE 1 (ONE) TABLET UNDER THE TONGUE NEEDED FOR CHEST PAIN. MAY REPEAT EVERY 5 MINUTES IF NEEDED; MAX OF 3 DOSES. IF NO RELIEF, COURTNEY colchicine 0.6 mg tablet Take 2 tabs by mouth, followed by 1 tab one hour later for gout flare. May repeat in 1 week. blood sugar diagnostic (BLOOD GLUCOSE TEST) test strip Test blood sugar(s) 1 times daily. Dx: Type 2 DM - Controlled E11.9 Insulin: No blood sugar diagnostic (TRUE METRIX GLUCOSE TEST STRIP) test strip testing once daily DX E11.9 Insulin No Lancets lancets Test blood sugar(s) One time daily. Dx: Type 2 DM - Controlled E11.9 Insulin: No. Blood Pressure Monitor Use as directed, Monitor and arm cuff. Dx: I25.119, N18.30, I.10 No current facility-administered medications for this visit. 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 (HCC) No date: Depression 2010: Diabetes mellitus (HCC) Comment: No nephropathy, neuropathy, retinopathy No date: DJD (degenerative joint disease) of lumbar spine 2011: Hyperlipidemia [id number]: Low back pain No date: Unspecified , without mention of complication, unspecified Comment: 2 Miscarriage's PAST SURGICAL HISTORY No date: DELIVERY ONLY Comment: , low cervical, (2) No date: DILATION & CURETTAGE DX&/THER NONOBSTETRIC Comment: Dilation & curettage x 2 2001: LIGATE FALLOPIAN TUBE 09/18/2016: NEUROPLASTY &/TRANSPOS MEDIAN NRV CARPAL TUNNE; Bilateral 07/07/2021: THYROID FINE NEEDLE ASPIRATION; Right Comment: 08/01/2021: THYROID FINE NEEDLE ASPIRATION No date: TONSILLECTOMY & ADENOIDECTOMY <AGE 12 FAMILY HISTORY Problem Relation Age of Onset Diabetes Mother Heart Mother Cataract Mother Emphysema Father Cancer Father other (Kidney Failure) Father Arthritis Paternal Aunt Arthritis Paternal Grandmother Hands Social History Tobacco Use Smoking status: Former Packs/day: 0.30 Years: 20.00 Additional pack years: 0.00 Total pack years: 6.00 Types: Cigarettes Quit date: 03/24/2023 Years since quittin.8 Smokeless tobacco: Never Tobacco comments: TRYING TO QUIT-SMOKES 1-2 A DAY as of 11/28/15 Vaping Use Vaping Use: Former Substances: Nicotine, Flavoring Devices: Disposable Substance Use Topics Alcohol use: Not Currently Comment: Quit 2001 Drug use: Not Currently Types: Marijuana Reviewed current medications, allergies, past medical history, surgical history, family history and social history today. REVIEW OF SYSTEMS All other reviewed and negative other than HPI. HEALTH MAINTENANCE: Reviewed health maintenance issues today and recommended the following in detail. Depression Screening Never done HbA1C due on 12/10/2023 Diabetic Foot Exam due on 02/09/2024 Mammogram Screening due on 03/11/2024 Colorectal Cancer Screening due on 03/23/2024 VITALS: LMP 09/01/2010 Last 4 Encounter Wt Readings: Date: Wt: 12/01/2023 57.7 kg (127 lb 3.3 oz) 09/22/2023 56.7 kg (125 lb) 08/13/2023 57.2 kg (126 lb) 06/10/2023 56.3 kg (124 lb 3.2 oz) PHYSICAL EXAMINATION: General appearance: Well appearing, alert, in no acute distress, well-hydrated, well nourished. Skin: Skin color, texture, turgor normal, no suspicious rashes or lesions Head: Normocephalic, no masses, lesions, tenderness or abnormalities Neck: Supple, no adenopathy; thyroid symmetric, normal size, no bruits Lungs: Lungs clear to auscultation. No wheezing, rhonchi, rales Heart: RRR without murmur, gallop, or rubs. No ectopy Abdomen: Normal abdominal exam, Abdomen soft, non-tender. Bowel sounds normal. No masses, organomegaly Extremities: No deformities, edema, skin discoloration, clubbing or cyanosis. Good capillary refill. Musculoskeletal: tender over medial epicondyle on the left. No redness or warmth. Normal range of motion. Peripheral pulses: Normal ASSESSMENT/PLAN: 1. 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 Call if any issues. 2. Gastroesophageal reflux disease without esophagitis - ICD9: 530.81, ICD10: K21.9 - dose still needs adjusted for renal function - FAMOTIDINE 10 MG TABLET 3. Essential (primary) hypertension - ICD9: 401.9, ICD10: I10 - Controlled - Continue current medications 4. Mixed hyperlipidemia - ICD9: 272.2, ICD10: E78.2 - Controlled - Continue current medications 5. Controlled type 2 diabetes mellitus without complication, without long-term current use of insulin (HCC) - ICD9: 250.00, ICD10: E11.9 - recheck labs. - COMPLETE BLOOD COUNT AND DIFFERENTIAL - COMPREHENSIVE METABOLIC PANEL - HEMOGLOBIN A1C 6. Anxiety - ICD9: 300.00, ICD10: F41.9 -adjust wellbutrin for meds. 7. Screening for depression - ICD9: V79.0, ICD10: Z13.31 - DEPRESSION SCREENING 8. Chronic renal disease, stage IV (HCC) - ICD9: 585.4, ICD10: N18.4 - explained importance of nephrology follow up and getting us. Will reset up. 9. Hypercalcemia - ICD9: 275.42, ICD10: E83.52 - COMPREHENSIVE METABOLIC PANEL - PHOSPHORUS INORGANIC - PTH INTACT - CALCIUM, IONIZED 10. Medial epicondylitis of left elbow - ICD9: 726.31, ICD10: M77.02 - ice and rest. Consider elbow strap. No xray since no trauma. Consider if not improving Red flags for re-assessment reviewed with patient in detail. Garrett Ventura MD documented in this encounter [facility] 12-01-2023 History of Present illness Narrative Images from the original note were not included. Subjective Roseann Viveros presents to [facility] for a follow up appointment. Since the last visit, Roseann Viveros states the pain has been same. Current pain intensity is 8 on a scale of 0-10. Pain located in Back area and radiates down the left posterior leg. Pain described as sharp Symptoms interfere with walking, sleeping, and sitting. Pain is exacerbated by unable to pinpoint exacerbating factors/positions. Pain is mitigated by medications. Patient has had partial relief with past injections. The medications are partially effective. The patient states the last dose of . Citra was taken last month. Patient Entered Questionnaires PROMIS Score Percentiles 02/02/2023 PROMIS Global Health Scale Physical Health Percentile 2 Mental Health Percentile 2 02/02/2023 Physical Health Physical Function Percentile 12 Pain Interference Percentile 5 Percentiles provide an indication of how the patient's score ranks in relation to the general population. Higher percentile rankings indicate better function/quality of life. 50th percentile is the average of the general population and indicates half of respondents had a worse score. > 31st percentile is within normal limits or better * < 31st percentile is at least SD worse than population, which may be clinically relevant < 16th percentile is at least 1 SD worse than population and warrants attention Review of Systems Constitutional: (-) Weight Gain (-) Weight Loss (+) Fatigue Cardiovascular: (-) hx heart surgery (-) Pacemaker Respiratory: (+) Shortness of Breath (+) Cough (-) Snoring Gastrointestinal: (-) Incontinence (-) Diarrhea (-) Constipation (-) Nausea/Vomiting Endocrine: (-) Thyroid Disorder (+) Diabetes Hematologic: (-) Prolonged Bleeding (+) Easy Bruising Genitourinary: (-) Incontinence (-) Frequency (-) Urinary Urgency Skin: (-) Open sores/wound Neurologic: (+) Headache (+) Double Vision Psychiatric: (+) Depression (+) Anxiety (-) Personal History of Alcohol or Substance Abuse (-) Family History of Alcohol or Substance Abuse Chief Complaint Patient presents with: Back Pain Refill Request Physical Examination Pulse 64 Ht 5' 2 (1.58m) Wt 127 lb 3.3 oz (57.7kg) SpO2 96% LMP 09/01/2010 BMI 23.26 kg/(m^2). General:well appearing and alert Skin: Skin color, texture, turgor normal, no rashes or lesions HEENT: normal Cardiovascular: Regular, rate and rhythm Lungs: Normal respiratory rate and rhythm, unlabored on room air Musculoskeletal: Back: Tenderness on palpation over the lumbar spine. , Tenderness over the left lumbar paraspinal muscles, Pain reproduced with flexion of the lumbar spine., Pain reproduced with extension of the lumbar spine. Extremities: Normal exam of the extremities Neurological: Mental Status: alert Motor Strength: Motor strength and tone are 5/5 all throughout. Sensory: Not Examined Gait: Antalgic. Trigger points: lumbosacral spine muscles. Assessment Assessment : Patient presents for medication refills Patient has a history of chronic low back pain that radiates down the left lower extremity to the foot Reports she has been experiencing charley horses in the bilateral calf and feet Patient takes Citra and Robaxin to manage her chronic pain. Last refill for Citra 28 pills was July 2023 Encounter Diagnosis ICD-10-CM 1. DDD (degenerative disc disease), lumbar M51.36 HYDROcodone-acetaminophen (NORCO) 5-325 mg per tablet 2. Spinal stenosis of lumbar region with neurogenic claudication M48.062 HYDROcodone-acetaminophen (NORCO) 5-325 mg per tablet 3. Spondylolisthesis of lumbar region M43.16 HYDROcodone-acetaminophen (NORCO) 5-325 mg per tablet 4. Radiculopathy, lumbar region M54.16 HYDROcodone-acetaminophen (NORCO) 5-325 mg per tablet 02/02/2023 PROMIS CAT Pain Interference PROMIS Pain Interference T-Score (range: 10 - 90) 66 (moderate) PROMIS Pain Interference Percentile 5 PROMIS Adult Short Form-Global Health Score (Mental) 28.4 (Poor) OARRS Report: Reviewed: The patient's OARRS report was reviewed and is consistent with the reported medication use. The pain panel was N/A Plan Injection history was reviewed. Medication use and compliance were reviewed. 1. Continue medication management through the Pain Management Center 2. The following approved medication requests have been transmitted electronically. Requested Prescriptions Signed Prescriptions Disp Refills HYDROcodone-acetaminophen (NORCO) 5-325 mg per tablet 28 tablet 0 Sig: Take 1-2 tablets by mouth every 6 hours as needed for up to 7 days. No refills needed on robaxin 3. Interventional procedure options discussed. none 4. Encouraged regular home exercise program. 5) F/U in 3 months The level of medical decision making for this encounter was low level. I spent a total of 20 minutes on the date of the service which included preparing to see the patient, [id number] patient care, completing clinical documentation, performing a medically appropriate examination, and ordering medications, tests, or procedures. 1. This document has been created with the use of voice recognition technology. It may contain inaccuracies: (e.g. misspellings, inaccurate syntax or word sense) that have escaped review. 2. The physician, nursing staff and medical assistants are a major part of YOUR TREATMENT TEAM and will be handling your phone calls and inquiries, if any. Unless explicitly told otherwise at the time of your office visit, your study results and ensuing treatment plans will be discussed during your follow-up appointment. If you do not have a follow-up appointment and wish to discuss any issues, please set up an appointment. 3. It is my practice to not fill disability or any other insurance-related forms/documentation. All of the office notes, study results, and other pertinent documentation generated as part of your evaluation will be available to you and to your Primary Care Physician (PCP). Use of this material to complete such forms will be at the discretion of your PCP/referring physician. The above plan and management options were discussed at length with patient. Patient is in agreement with the above and verbalized understanding. Barbara Bran APRN, BERTHA December 01, 2023 documented in this encounter [facility] 12-01-2023 Telephone encounter Note At appointment time, 10a, pt was not checked in. Went to lobby/waiting room and hallway to call for pt. Pt was not in either location. [facility] 12-01-2023 Miscellaneous Notes At appointment time, 10a, pt was not checked in. Went to lobby/waiting room and hallway to call for pt. Pt was not in either location. documented in this encounter [facility] 11-17-2023 Telephone encounter Note Patient has been identified by name and date of : Patient phones for refill(s): Requested Prescriptions Pending Prescriptions Disp Refills meclizine (ANTIVERT) 25 mg tab 90 tablet 1 Sig: Take 1 tablet by mouth three times a day as needed. Date of last office visit in primary care: 09/22/2023 Date of next office visit in primary care: 01/24/2024 Please advise. Thank you. Lauren Oconnor LPN. [facility] 11-17-2023 Miscellaneous Notes Patient has been identified by name and date of : Patient phones for refill(s): Requested Prescriptions Pending Prescriptions Disp Refills meclizine (ANTIVERT) 25 mg tab 90 tablet 1 Sig: Take 1 tablet by mouth three times a day as needed. Date of last office visit in primary care: 09/22/2023 Date of next office visit in primary care: 01/24/2024 Please advise. Thank you. Lauren Oconnor LPN. documented in this encounter [facility] 11-03-2023 Telephone encounter Note Voicemail received 11/03/2023 at 1353: Hi my name is Roseann Viveros. My phone number is [phone], and I'm calling for Pain Management to speak with Barbara Bran. Bye. Attempted to contact patient via telephone without success. Left voicemail requesting return phone call. [facility] 11-03-2023 Miscellaneous Notes Voicemail received 11/03/2023 at 1353: Hi my name is Roseann Viveros. My phone number is [phone], and I'm calling for Pain Management to speak with Barbara Bran. Bye. Attempted to contact patient via telephone without success. Left voicemail requesting return phone call. documented in this encounter [facility] 10-25-2023 Telephone encounter Note Pt states she took her last Wellbutrin a couple days ago. It looks like it was discontinued on 09/15/23 and the note says renal failure. Then a medication update was done putting the same medication back on the Pts medication list but never sending it into the pharmacy for her. I did not know if she was supposed to be getting this or if it was supposed to be discontinued. If she should not be taking it please call and advise Pt. Pt was told that her Fenofibrate was discontinued as it is contraindicated in renal failure. Patient has been identified by name and date of : Yes, Provider Dr Ventura Date 10/25/23 Time 1715. Patient phones for refill(s): Requested Prescriptions Pending Prescriptions Disp Refills buPROPion SR (WELLBUTRIN SR) 150 mg 12 hr tablet 180 tablet 3 Sig: Take 1 tablet by mouth every morning and 1 tablet at dinner meclizine (ANTIVERT) 25 mg tab 90 tablet 0 Sig: Take 1 tablet by mouth three times a day as needed. Date of last office visit in primary care: 09/22/2023 Date of next office visit in primary care: 01/24/2024 Please advise. Thank you. Ileana Mendez RN. [facility] 10-25-2023 Miscellaneous Notes Pt states she took her last Wellbutrin a couple days ago. It looks like it was discontinued on 09/15/23 and the note says renal failure. Then a medication update was done putting the same medication back on the Pts medication list but never sending it into the pharmacy for her. I did not know if she was supposed to be getting this or if it was supposed to be discontinued. If she should not be taking it please call and advise Pt. Pt was told that her Fenofibrate was discontinued as it is contraindicated in renal failure. Patient has been identified by name and date of : Yes, Provider Dr Ventura Date 10/25/23 Time 1715. Patient phones for refill(s): Requested Prescriptions Pending Prescriptions Disp Refills buPROPion SR (WELLBUTRIN SR) 150 mg 12 hr tablet 180 tablet 3 Sig: Take 1 tablet by mouth every morning and 1 tablet at dinner meclizine (ANTIVERT) 25 mg tab 90 tablet 0 Sig: Take 1 tablet by mouth three times a day as needed. Date of last office visit in primary care: 09/22/2023 Date of next office visit in primary care: 01/24/2024 Please advise. Thank you. Ileana Mendez RN. documented in this encounter [facility] 10-20-2023 Note HNO ID: [id number] Author: MOE HAYES MD Service: ? Author Type: Physician Type: Progress Notes Filed: 10/20/2023 09:11 Note Text: Summary: Abstract Abstract: 58 y/o female with h/o depression, anxiety, OA, HLD, CAD, thyroid nodule, cervical spondylosis, chronic neck pain, lumbar spondylosis, chronic low back pain, gout, ex-smoker, hypercalcemia, marijuana use, GERD, DM-2, osteopenia, UTIs, KYREE, and CKD stage 4. [facility] Moe Curry MD Staff Nephrology and Hypertension [facility] Pager# [phone] [facility] 10-20-2023 History of Present illness Narrative Summary: Abstract Images from the original note were not included. Abstract: 58 y/o female with h/o depression, anxiety, OA, HLD, CAD, thyroid nodule, cervical spondylosis, chronic neck pain, lumbar spondylosis, chronic low back pain, gout, ex-smoker, hypercalcemia, marijuana use, GERD, DM-2, osteopenia, UTIs, KYREE, and CKD stage 4. [facility] Moe Curry MD Staff Nephrology and Hypertension [facility] Pager# [phone] documented in this encounter [facility] 09-27-2023 Miscellaneous Notes Pt notified of results and provider message. Pt voiced understanding. Alaina Maravilla LPN Called and left message for patient to call office back for results. Priscilla Fox LPN September 27, 2023 11:16 AM Calcium is now high again. Vit d, phos and pth are actually ok. Recheck calcium and additional labs in two weeks to figure out why. documented in this encounter [facility] 09-23-2023 Miscellaneous Notes Phoned Lab Client Services and spoke to Lashay was able to add the lab to blood collected. Phoned patient and went over vitamin D results with understanding. Vit d was ok. Can we check if lab can add phos to blood draw Patient was notified and will call to schedule nephrology. PSS please call to set up US Sharlene Shah MA Not all her labs are back. Her kidney function is worsening. Stop the metformin and call sugars to me in one week. Will notify when rest are back. Refer to nephrology and recheck renal us. documented in this encounter [facility] 09-22-2023 History of Present illness Narrative Chief Complaint Patient presents with: Follow Up HPI Roseann Viveros is a 58 year old female who presents here today for patient is here for 4 week follow up Patient noted today that she has been having upper back pain x 1 week. Feels like it is burning. No fall or injury. Pain scale is 8. Sees pain management for her lower back. Is across her shoulders. No radicular symptoms. No shortness of breath or cough. No trauma. Used ice pack, heating pad and tylenol. Had robaxin at one point but not using them now. Hand is better. No swelling or redness or warmth. No pain. Stomach is improving. Pepcid helps. No black or bloody hearturn is much better. Discussed her worsening renal function. No nsaid usage. Discussed repeating meds. Past medical history, appointments, medications, allergies reviewed. Was coming back in for recheck in her hand and recheck on gerd: See previous ov: Right hand swelling. Started last night doesn't recall any injury. No fever. Not hot or red. Has swelling over her index finger and middle finger knuckles. Wonders if she hit it while sleeping. No fever or chills Normal range of motion. Having a lot of heartburn for a couple of weeks. Doesn't let up much. Using rolaids and tums that helps a little bit. Today is somewhat better. Latest Ref Rng 08/13/2023 WBC 3.70 - 11.00 k/uL 7.06 RBC 3.90 - 5.20 m/uL 4.49 Hemoglobin 11.5 - 15.5 g/dL 12.8 Hematocrit 36.0 - 46.0 % 40.7 MCV 80.0 - 100.0 fL 90.6 MCH 26.0 - 34.0 pg 28.5 MCHC 30.5 - 36.0 g/dL 31.4 RDW-CV 11.5 - 15.0 % 14.2 Platelet Count 150 - 400 k/uL 259 MPV 9.0 - 12.7 fL 10.3 Neut% % 61.6 Abs Neut (ANC) 1.45 - 7.50 k/uL 4.34 Lymph% % 25.6 Abs Lymph 1.00 - 4.00 k/uL 1.81 [place]% % 8.2 Abs [place] <0.87 k/uL 0.58 Eosin% % 3.5 Abs Eosin <0.46 k/uL 0.25 Baso% % 1.0 Abs Baso <0.11 k/uL 0.07 Immature Gran % % 0.1 IMMATURE GRANS (ABS) <0.10 k/uL <0.03 NRBC /100 WBC 0.0 Absolute nRBC <0.01 k/uL <0.01 DTYPE Auto Glucose 74 - 99 mg/dL 42 (L) BUN 7 - 21 mg/dL 16 Creatinine 0.58 - 0.96 mg/dL 1.73 (H) Sodium 136 - 144 mmol/L 142 Potassium 3.7 - 5.1 mmol/L 4.4 Chloride 97 - 105 mmol/L 104 CO2 22 - 30 mmol/L 27 Anion Gap 9 - 18 mmol/L 11 Calcium 8.5 - 10.2 mg/dL 10.5 (H) eGFR >=60 mL/min/1.73m 34 (L) WSR 0 - 20 mm/hr 2 Uric Acid 2.5 - 6.6 mg/dL 5.9 Legend: (L) Low (H) High XRAY: . Nonspecific soft tissue tissue swelling at the dorsal metacarpal head level inflammatory or infectious. 2. Mild degenerative changes of the right hand without acute bony abnormality Previous Medical History PAST MEDICAL HISTORY Diagnosis Date Anxiety 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 (HCC) 08/31/2016 Depression Diabetes mellitus (HCC) 2010 No nephropathy, neuropathy, retinopathy DJD (degenerative joint disease) of lumbar spine Hyperlipidemia 2011 Low back pain [id number] Unspecified , without mention of complication, unspecified 2 Miscarriage's Previous Surgical History PAST SURGICAL HISTORY Procedure Laterality Date DELIVERY ONLY , low cervical, (2) DILATION & CURETTAGE DX&/THER NONOBSTETRIC Dilation & curettage x 2 LIGATE FALLOPIAN TUBE 2002 NEUROPLASTY &/TRANSPOS MEDIAN NRV CARPAL TUNNE Bilateral 09/18/2016 THYROID FINE NEEDLE ASPIRATION Right 07/07/2021 THYROID FINE NEEDLE ASPIRATION 08/01/2021 TONSILLECTOMY & ADENOIDECTOMY <AGE 12 Family History FAMILY HISTORY Problem Relation Age of Onset Diabetes Mother Heart Mother Cataract Mother Emphysema Father Cancer Father other (Kidney Failure) Father Arthritis Paternal Aunt Arthritis Paternal Grandmother Hands Patient Allergies ALLERGIES Allergen Reactions Bees Bee Venom Protein (* Unknown, Swelling Current Medications Current Outpatient Medications on File Prior to Visit Medication Sig linaGLIPtin (TRADJENTA) 5 mg tab Take 1 tablet by mouth once daily. buPROPion SR (WELLBUTRIN SR) 150 mg 12 hr tablet Take 1 tablet by mouth every morning and 1 tablet at dinner meclizine (ANTIVERT) 25 mg tab Take 1 tablet by mouth three times a day as needed. nitroglycerin sublingual (NITROQUICK) 0.4 mg SL tablet DISSOLVE 1 (ONE) TABLET UNDER THE TONGUE NEEDED FOR CHEST PAIN. MAY REPEAT EVERY 5 MINUTES IF NEEDED; MAX OF 3 DOSES. IF NO RELIEF, COURTNEY colchicine 0.6 mg tablet Take 2 tabs by mouth, followed by 1 tab one hour later for gout flare. May repeat in 1 week. metFORMIN (GLUCOPHAGE) 1,000 mg tablet Take 0.5 tablets by mouth two times a day with meals. GFR - 40 isosorbide mononitrate ER (IMDUR) 30 mg 24 hr tablet Take 1 tablet by mouth once daily. Take w/ 60 mg tablet for total daily dose of 90 mg. isosorbide mononitrate ER (IMDUR) 60 mg 24 hr tablet Take 1 tablet by mouth once daily. Take w/ 30 mg tablet for total daily dose of 90 mg. aspirin, enteric coated (ASPIRIN, ENTERIC COATED) 81 mg EC tablet Take 1 tablet by mouth once daily. glimepiride (AMARYL) 2 mg tablet Take 1 tablet by mouth daily with breakfast. famotidine (PEPCID) 20 mg tablet Take 1 tablet by mouth two times a day. Cholecalciferol, Vitamin D3, 25 mcg (1,000 unit) cap Take 1 capsule by mouth once daily. calcium-cholecalciferol, D3, (OSCAL+D 250) 250 mg-3.125 mcg (125 unit) per tablet Take 1 tablet by mouth two times a day. empagliflozin (JARDIANCE) 10 mg tablet Take 1 tablet by mouth daily with breakfast. atorvastatin (LIPITOR) 80 mg tablet Take 1 tablet by mouth once daily. sertraline (ZOLOFT) 100 mg tablet Take 1 tablet by mouth once daily. albuterol HFA (PROVENTIL HFA, VENTOLIN HFA) 90 mcg/actuation inhaler Inhale 2 Puffs as instructed every 6 hours as needed for wheezing/shortness of breath. atenolol (TENORMIN) 50 mg tablet Take 1 tablet by mouth once daily. blood sugar diagnostic (BLOOD GLUCOSE TEST) test strip Test blood sugar(s) 1 times daily. Dx: Type 2 DM - Controlled E11.9 Insulin: No blood sugar diagnostic (TRUE METRIX GLUCOSE TEST STRIP) test strip testing once daily DX E11.9 Insulin No Lancets lancets Test blood sugar(s) One time daily. Dx: Type 2 DM - Controlled E11.9 Insulin: No. Blood Pressure Monitor Use as directed, Monitor and arm cuff. Dx: I25.119, N18.30, I.10 No current facility-administered medications on file prior to visit. Social History Social History Tobacco Use Smoking status: Former Packs/day: 0.30 Years: 20.00 Additional pack years: 0.00 Total pack years: 6.00 Types: Cigarettes Quit date: 03/24/2023 Years since quittin.4 Smokeless tobacco: Never Tobacco comments: TRYING TO QUIT-SMOKES 1-2 A DAY as of 11/28/15 Vaping Use Vaping Use: Former Substances: Nicotine, Flavoring Devices: Disposable Substance Use Topics Alcohol use: Not Currently Comment: Quit 2001 Drug use: Not Currently Types: Marijuana Review of Symptoms REVIEW OF SYSTEMS As above EXAM: LMP 09/01/2010 Skin: Skin color, texture, turgor normal, no suspicious rashes or lesions. Neck: Supple, no adenopathy; thyroid symmetric, normal size, no bruits. Lungs: Lungs clear to auscultation. No wheezing, rhonchi, rales.. Heart: RRR without murmur, gallop, or rubs. No ectopy. Abdomen: Normal abdominal exam, Abdomen soft, non-tender. Bowel sounds normal. No masses, organomegaly. Extremities: No deformities, edema, skin discoloration, clubbing or cyanosis. Good capillary refill. Hand is back to normal. Shoulders show tenderness across bilateral trap area. Normal motor and sensory exam. Normal dtrs Health Maintenance List Urine Albumin:Creatinine Ratio due on 06/18/2022 HIV Screening due on 02/09/2024 Hepatitis B Vaccine(1 of 3 - 19+ 3-dose series) due on 08/13/2024 Shingrix Vaccine(1 of 2) due on 08/13/2024 HbA1C due on 12/10/2023 Diabetic Foot Exam due on 02/09/2024 Influenza Vaccine(Season Ended) due on 02/20/2024 Mammogram Screening due on 03/11/2024 Colorectal Cancer Screening due on 03/23/2024 LDL Cholesterol due on 06/10/2024 Dilated Retinal Exam due on 08/05/2024 Annual PCP Team Chronic Disease Visit due on 08/13/2024 Serum Creatinine due on 08/13/2024 Hemoglobin/Hematocrit due on 08/13/2024 BP Controlled (<130/80) due on 08/13/2024 DTaP,Tdap,Td Vaccine(3 - Td or Tdap) due on 10/24/2027 Pap Testing due on 06/10/2028 HPV Testing due on 06/10/2028 Depression Assessment Completed Hepatitis C Screening Completed Pneumococcal Vaccine Completed Covid-19 Vaccine Discontinued ASSESSMENT/PLAN: 1. Neck pain - ICD9: 723.1, ICD10: M54.2 (primary diagnosis) - appears muscular. Ice prn. Discussed risks and benefits of new medication with the patient. Advised them to call if any side effects or questions. Red flags for re-assessment reviewed with patient in detail. Call if symptoms worsen at all or if not better in one to two weeks Reviewed diagnosis and treatment options in detail. Questions were answered. Patient expressed understanding of treatment plan. - CYCLOBENZAPRINE 10 MG TABLET 2. Wheezing - ICD9: 786.07, ICD10: R06. - ALBUTEROL SULFATE HFA 90 MCG/ACTUATION AEROSOL INHALER 3. Renal insufficiency - ICD9: 593.9, ICD10: N28.9 - check labs. - URINALYSIS, WITH MICROSCOPIC 4. Hypercalcemia - ICD9: 275.42, ICD10: E83.52 - check labs. - BASIC METABOLIC PNL - VITAMIN D 25 HYDROXY - PTH INTACT BLD - CALCIUM IONIZED BLOOD 5. Gastroesophageal reflux disease without esophagitis - ICD9: 530.81, ICD10: K21.9 - call if worsens. Garrett Ventura MD documented in this encounter [facility] 09-15-2023 Miscellaneous Notes Patient has been identified by name and date of : Patient phones for refill(s): Requested Prescriptions Pending Prescriptions Disp Refills meclizine (ANTIVERT) 25 mg tab 90 tablet 0 Sig: Take 1 tablet by mouth three times a day as needed. Date of last office visit in primary care: 08/13/2023 Date of next office visit in primary care: 09/20/2023 Please advise. Thank you. Carmen Cartagena LPN. documented in this encounter [facility] 09-15-2023 Miscellaneous Notes Phoned patient and went over notes below from Dave DENISE with understanding. Aware rx x 2 sent to the pharmacy. For current renal status from pharmacy consult: Stop alogliptin (renal issues) Start linagliptin (no renal issues) Should not use colchicine. If gout attack we can use prednisone. The following approved medication requests have been transmitted electronically. Requested Prescriptions Signed Prescriptions Disp Refills linaGLIPtin (TRADJENTA) 5 mg tab 30 tablet 5 Sig: Take 1 tablet by mouth once daily. Authorizing Provider: Davian STONE buPROPion SR (WELLBUTRIN SR) 150 mg 12 hr tablet 180 tablet 3 Sig: Take 1 tablet by mouth every morning and 1 tablet at dinner Authorizing Provider: Davian STONE PA-C documented in this encounter [facility] 09-09-2023 History of Present illness Narrative Primary Care Pharmacy Visit CC (Reason for Consult): (Z79.899) Medication management (primary encounter diagnosis) Last Collaborating Provider Visit: 08/13/[address] Alon Zhangsebastien is a 58 year old female presenting for initial visit: This initial consult was conducted in person with the patient where the consult agreement was explained. The patient may decline or cancel the agreement at any time. After consideration, the patient consented to the pharmacy consult agreement and agreed to allow medications be collaboratively managed by a pharmacist. HPI: Reports doing well Denies any questions/concerns with medications Confirmed she stopped glimepiride about 2 weeks ago per recommendation to hold while waiting for repeat labs next month/follow up Outside providers: None - all [facility] providers Past medical history reviewed. ALLERGIES Allergen Reactions Bees Bee Venom Protein (* Unknown, Swelling Medication List Medication Directions Comments Action/Plan albuterol HFA (PROVENTIL HFA, VENTOLIN HFA) 90 mcg/actuation inhaler Inhale 2 Puffs as instructed every 6 hours as needed for wheezing/shortness of breath. PRN alogliptin (NESINA) 25 mg tab Take 1 tablet by mouth once daily. Taking as prescribed in the morning Recommend renal adjustment based on current renal fxn; see below aspirin, enteric coated (ASPIRIN, ENTERIC COATED) 81 mg EC tablet Take 1 tablet by mouth once daily. Taking as prescribed in the morning atenolol (TENORMIN) 50 mg tablet Take 1 tablet by mouth once daily. Taking as prescribed in the morning Dose appropriate for renal fxn (max dose: 50 mg daily for CrCl 10-30) atorvastatin (LIPITOR) 80 mg tablet Take 1 tablet by mouth once daily. Taking as prescribed in evening Blood Pressure Monitor Use as directed, Monitor and arm cuff. Dx: I25.119, N18.30, I.10 blood sugar diagnostic (BLOOD GLUCOSE TEST) test strip Test blood sugar(s) 1 times daily. Dx: Type 2 DM - Controlled E11.9 Insulin: No blood sugar diagnostic (TRUE METRIX GLUCOSE TEST STRIP) test strip testing once daily DX E11.9 Insulin No buPROPion SR (WELLBUTRIN SR) 150 mg 12 hr tablet Take 1 tablet by mouth every morning and 1 tablet at dinner Taking as prescribed Recommend renal adjustment based on current renal fxn; see below calcium-cholecalciferol, D3, (OSCAL+D 250) 250 mg-3.125 mcg (125 unit) per tablet Take 1 tablet by mouth two times a day. Taking as prescribed Cholecalciferol, Vitamin D3, 25 mcg (1,000 unit) cap Take 1 capsule by mouth once daily. Taking as prescribed colchicine 0.6 mg tablet Take 2 tabs by mouth, followed by 1 tab one hour later for gout flare. May repeat in 1 week. Has not started yet, just approved Requested it to be filled at pharmacy now Recommend renal adjustment based on current renal fxn; see below empagliflozin (JARDIANCE) 10 mg tablet Take 1 tablet by mouth daily with breakfast. Taking as prescribed famotidine (PEPCID) 20 mg tablet Take 1 tablet by mouth two times a day. Patient not taking: Reported on 08/16/2023 Taking as prescribed Recommend renal adjustment based on current renal fxn; see below fenofibrate nanocrystallized (TRICOR) 48 mg tablet Take 1 tablet by mouth once daily. Taking as prescribed in evening Recommend renal adjustment based on current renal fxn; see below glimepiride (AMARYL) 2 mg tablet Take 1 tablet by mouth daily with breakfast. Not taking currently - Was put on hold for now Last taken 2 weeks ago, was waiting until labs done next month isosorbide mononitrate ER (IMDUR) 30 mg 24 hr tablet Take 1 tablet by mouth once daily. Take w/ 60 mg tablet for total daily dose of 90 mg. Taking as prescribed isosorbide mononitrate ER (IMDUR) 60 mg 24 hr tablet Take 1 tablet by mouth once daily. Take w/ 30 mg tablet for total daily dose of 90 mg. Taking as prescribed Lancets lancets Test blood sugar(s) One time daily. Dx: Type 2 DM - Controlled E11.9 Insulin: No. meclizine (ANTIVERT) 25 mg tab Take 1 tablet by mouth three times a day as needed. PRN metFORMIN (GLUCOPHAGE) 1,000 mg tablet Take 0.5 tablets by mouth two times a day with meals. GFR - 40 Taking as prescribed Dose appropriate for current renal fxn; use contraindicated if eGFR<30 methocarbamol (ROBAXIN-750) 750 mg tablet Take 1 tablet by mouth three times a day as needed. Taking PRN nitroglycerin sublingual (NITROQUICK) 0.4 mg SL tablet DISSOLVE 1 (ONE) TABLET UNDER THE TONGUE NEEDED FOR CHEST PAIN. MAY REPEAT EVERY 5 MINUTES IF NEEDED; MAX OF 3 DOSES. IF NO RELIEF, COURTNEY Has at home in case she needs sertraline (ZOLOFT) 100 mg tablet Take 1 tablet by mouth once daily. Taking as prescribed Rx meds not listed in EPIC: None OTCs: Tylenol as needed for headaches Herbals: None Pill bottles are not present. Uses a pillbox to organize Adherence: denies missed doses. Occasionally forgets but not often Rx coverage: Payor: [facility] MEDICAID / Plan: [facility] MEDICAID / Product Type: Medicaid / Medications affordable? Yes Pharmacy: [facility] [address] [place] [address] - [address] [facility] - [phone] EXAM: LMP 09/01/2010 Last 3 Encounter BP Readings: Date: BP: 08/13/2023 102/52 06/10/2023 114/68 02/08/2023 104/68 Wt: 57.2 kg (126 lb) BMI: 23.05 kg/(m^2) LABS: Lab Results Component Value Date HBA1C 5.8 06/10/2023 HBA1C 7.3 02/13/2022 HBA1C 6.7 06/18/2021 HBA1C 7.7 02/18/2021 HBA1C 7.2 07/06/2020 Glucose 42 08/13/2023 BUN 16 08/13/2023 Creatinine 1.73 08/13/2023 Sodium 142 08/13/2023 Potassium 4.4 08/13/2023 Chloride 104 08/13/2023 CO2 27 08/13/2023 Protein, Total 7.2 06/10/2023 Albumin 4.5 06/10/2023 Calcium 10.5 08/13/2023 Alkaline Phosphatase 46 06/10/2023 Bilirubin, Total 0.2 06/10/2023 AST 16 06/10/2023 ALT 17 06/10/2023 Lab Results Component Value Date CHOL 170 06/10/2023 CHOL 176 06/18/2021 LDL 82 06/10/2023 LDL 82 02/13/2022 LDL 87 06/18/2021 HDL 45 06/10/2023 HDL 36 06/18/2021 TG 216 06/10/2023 TG 266 06/18/2021 Albumin/Creat Ratio (mg/g) Date Value 06/18/2021 Not calculated eGFR-All Other Races (.) Date Value 06/18/2021 41 Estimated Glomerular Filtration Rate (mL/min/1.73m ) Date Value 08/13/2023 34 ASSESSMENT/PLAN: 1. Medication management - ICD9: V58.69, ICD10: Z79.899 Reviewed all medications, indications, dosing, frequency, administration, and potential ADRs with pt. No concern for adherence per dispense history or patient report. Medication list updated as described above. Based on patient's current renal fxn (CrCl 28 ml/min; eGFR 34), would recommend the following medication dose adjustments: Alogliptin - For CrCl <30 ml/min, recommend dose reduction to 6.25 mg once daily. Alternative option may be to switch to linagliptin (Tradjenta) 5 mg daily, which does not require any renal dose adjustments. Bupropion - For CrCl 15-60 ml/min, recommend to use with caution and consider maximum daily dose of 150 mg. Bupropion SR not currently available in 75 mg tablets; may consider dose reduction to bupropion XL 150 mg daily. Colchicine - For CrCl<30 ml/min, alternative therapy preferred. If alternative therapy unavailable, recommend the following dose/frequency change: current treatment dose appropriate; however, recommended to not repeat dose for at least 14 days Famotidine - For CrCl <30 ml/min, recommend dose reduction to 10 mg once daily Fenofibrate - For CrCl <30 ml/min, use contraindicated Glimepiride - Currently on hold; however, if considering resuming: for eGFR 15-60 ml/min, renal clearance of active metabolites may be reduced, leading to increased risk of hypoglycemia; consider initiating at a low dose (eg, 1 mg daily) and titrating cautiously Methocarbamol - in mild to moderate renal impairment, use with caution (no specific renal fxn cutoffs recommended) Follow Up: Next PCP visit: 09/20/23 Renuka Villarreal PharmD Primary Care Clinical Neuro Urologist I spent a total of 60 minutes on the date of the service which included preparing to see the patient, [id number] patient care, completing clinical documentation, and counseling and educating the patient/family/caregiver. documented in this encounter [facility] 09-09-2023 Instructions Renuka Villarreal RPh - 09/09/2023 3:00 PM EDT Get repeat labwork done first week of September documented in this encounter [facility] 08-30-2023 Miscellaneous Notes Rec'd approval for colchicine from 08/27/23 to 08/25/24. Message left to pt with info. and info faxed to the pharmacy. Called to see if this can be expedited since this has been ongoing since 08/17/23. First they said response in 15 days. They will note and expedite this. Response in 3 days. Need to fax office notes and x rays All faxed to [phone]. This call reference number is [id number] Letter printed for appeal. We need to let them know all of their alternatives are contraindicated. indomethacin,naproxen,ibuprofen,bates indac or ketoprofen cannot be used due to her renal function Corticosteroids are contraindicated due to her dm. They need to cover colchicine. Called [facility] this was denied. Pt needs to have tried formulary first. They are faxing those medicines. Pt needs to have tried indomethacin,naproxen,ibuprofen,bates indac or ketoprofen AND a preferred oral corticosteroid which include but not limited to prednisone and methlyprednisone. Please review with pt too what the new treatment plan will be Called pt the wrist is the same. She has not picked up the colchicine. Will call [facility] as they still have not reviewed the the PA via covermymeds. Still no response from [facility]. Sent again for review. Unable to complete PA via electronically. Completed via covermymeds ROSEANN VIVEROS (Kincaid: [id number]) - [id number] Colchicine 0.6MG tablets Status: Sent To Plan Created: August 17, 2023 [id number] Sent: August 18, 2023 documented in this encounter [facility] 08-23-2023 Telephone encounter Note Pt notified and voiced understanding. Please place orders for repeat labs. Also is pharmacy going to reach out to pt or does pt need to schedule appt with Pharmacy? If pt needs to make appt with Pharmacy please route chart to schedulers. Reyna Bello Ma [facility] 08-23-2023 Miscellaneous Notes Pt notified and voiced understanding. Please place orders for repeat labs. Also is pharmacy going to reach out to pt or does pt need to schedule appt with Pharmacy? If pt needs to make appt with Pharmacy please route chart to schedulers. Reyna Bello Ma Please have patient stop amaryl Please advise creatinine is increasing, now at level 3b renal failure, must avoid use of any antiinflammatory/arthritic medications which may further harm to kidneys. I am going to ask pharmacy to review your medications for renal issues. BS was 42 Amaryl may be causing hypoglycemia Let's stop it for now. Other medications do not specifically cause hypoglycemia Recheck fasting blood sugar and renal panel in 4 weeks. Check blood sugars fasting a.m. and 2h after evening meal x 3 days and report results to office by phone or MyChart. Consult placed for pharmacy to review and advise changes for renal function improvement. Hemoglobin A1C (%) Date Value 06/10/2023 5.8 02/13/2022 7.3 06/18/2021 6.7 02/18/2021 7.7 Davian Burdick PA-C documented in this encounter [facility] 08-23-2023 Telephone encounter Note Please have patient stop amaryl Please advise creatinine is increasing, now at level 3b renal failure, must avoid use of any antiinflammatory/arthritic medications which may further harm to kidneys. I am going to ask pharmacy to review your medications for renal issues. BS was 42 Amaryl may be causing hypoglycemia Let's stop it for now. Other medications do not specifically cause hypoglycemia Recheck fasting blood sugar and renal panel in 4 weeks. Check blood sugars fasting a.m. and 2h after evening meal x 3 days and report results to office by phone or MyChart. Consult placed for pharmacy to review and advise changes for renal function improvement. Hemoglobin A1C (%) Date Value 06/10/2023 5.8 02/13/2022 7.3 06/18/2021 6.7 02/18/2021 7.7 Davian Burdick PA-C [facility] 08-17-2023 Miscellaneous Notes Patient notified. Verbalized understanding. The only thing I can think of, possible gout. Her uric acid is 5.9. This is minimally elevated if that. I we will give her colchicine 2 tablets to take initially and 1 tablet an hour later to see if that helps. Otherwise, soak it in some warm Epsom salts and do gentle range of motion. Pt called and is notified of providers results and questions. Pt voices understanding. She states when she pushes to get up, makes a fist, or uses that hand the pain is a 9/10 sharp pain. If she isn't using the hand it is ok. She reports the swelling has come down, but is still there. Ileana Mendez RN Please let patient know that x-ray shows only nonspecific soft tissue swelling on the back of her hand. Inflammatory markers are not elevated. White blood count is not elevated indicating infection. How is her pain and swelling? documented in this encounter [facility] 08-17-2023 Miscellaneous Notes Patient has been identified by name and date of : Patient phones for refill(s): Requested Prescriptions Pending Prescriptions Disp Refills meclizine (ANTIVERT) 25 mg tab 90 tablet 0 Sig: Take 1 tablet by mouth three times a day as needed. nitroglycerin sublingual (NITROQUICK) 0.4 mg SL tablet 25 tablet 3 Sig: DISSOLVE 1 (ONE) TABLET UNDER THE TONGUE NEEDED FOR CHEST PAIN. MAY REPEAT EVERY 5 MINUTES IF NEEDED; MAX OF 3 DOSES. IF NO RELIEF, COURTNEY Date of last office visit in primary care: 08/13/2023 Date of next office visit in primary care: 09/20/2023 Please advise. Thank you. Marti King RN. documented in this encounter [facility] 08-16-2023 History of Present illness Narrative Subjective Roseann Viveros presents to [facility] for a follow up appointment. Since the last visit, Roseann Viveros states the pain has been med refill ( low back pain) . Current pain intensity is 8 on a scale of 0-10. Pain located in Back area and radiates down the left leg. Pain described as aching, dull, and sharp Symptoms interfere with physical activity. Pain is exacerbated by unable to pinpoint exacerbating factors/positions. Pain is mitigated by unable to pinpoint positions/factors that are mitigating. The patient notes no improvement from the previous procedure. The medications are effective and partially effective. The patient states the last dose of . Citra was taken at a month ago. Review of Systems Constitutional: (-) Weight Gain (-) Weight Loss (-) Fatigue Cardiovascular: (-) hx heart surgery (-) Pacemaker Respiratory: (+) Shortness of Breath (+) Cough (+) Snoring Gastrointestinal: (-) Incontinence (-) Diarrhea (-) Constipation (-) Nausea/Vomiting Endocrine: (-) Thyroid Disorder (+) Diabetes Hematologic: (-) Prolonged Bleeding (+) Easy Bruising Genitourinary: (-) Incontinence (-) Frequency (-) Urinary Urgency Skin: (-) Open sores/wound Neurologic: (+) Headache (+) Double Vision Psychiatric: (+) Depression (+) Anxiety (-) Personal History of Alcohol or Substance Abuse (-) Family History of Alcohol or Substance Abuse Chief Complaint Patient presents with: Refill Request Back Pain Physical Examination Pulse 67 SpO2 97% LMP 09/01/2010 General:well appearing and alert Skin: Skin color, texture, turgor normal, no rashes or lesions HEENT: normal Cardiovascular: Regular, rate and rhythm Lungs: Normal respiratory rate and rhythm, unlabored on room air Musculoskeletal: Back: Tenderness on palpation over the lumbar spine. , Tenderness over the bilateral lumbar paraspinal muscles, Extremities: Normal exam of the extremities Neurological: Mental Status: alert Motor Strength: Motor strength and tone are 5/5 all throughout. Sensory: Sensation was intact to light touch all throughout. Gait: Antalgic. Trigger points: lumbosacral spine muscles. Assessment Assessment : Patient presents for medication refills She has chronic low back pain that radiates down the left LE to the foot She reports no new issues Needs refills on Citra and robaxin Encounter Diagnosis ICD-10-CM 1. DDD (degenerative disc disease), lumbar M51.36 HYDROcodone-acetaminophen (NORCO) 5-325 mg per tablet 2. Spinal stenosis of lumbar region with neurogenic claudication M48.062 HYDROcodone-acetaminophen (NORCO) 5-325 mg per tablet 3. Spondylolisthesis of lumbar region M43.16 HYDROcodone-acetaminophen (NORCO) 5-325 mg per tablet 4. Radiculopathy, lumbar region M54.16 HYDROcodone-acetaminophen (NORCO) 5-325 mg per tablet PROMIS CAT Pain Interference 02/02/2023 PROMIS Pain Interference T-Score (range: 10 - 90) 66 (moderate) PROMIS Pain Interference Percentile 5% OARRS Report: Reviewed: The patient's OARRS report was reviewed and is consistent with the reported medication use. The pain panel was N/A Plan Injection history was reviewed. Medication use and compliance were reviewed. 1. Continue medication management through the [facility] 2. The following approved medication requests have been transmitted electronically. Requested Prescriptions Signed Prescriptions Disp Refills HYDROcodone-acetaminophen (NORCO) 5-325 mg per tablet 28 tablet 0 Sig: Take 1-2 tablets by mouth every 6 hours as needed for up to 7 days. 3. Interventional procedure options discussed. none 4. Encouraged regular home exercise program. 5) F/U in 3 months The level of medical decision making for this encounter was low level. I spent a total of 25 minutes on the date of the service which included preparing to see the patient, [id number] patient care, completing clinical documentation, performing a medically appropriate examination, and ordering medications, tests, or procedures. 1. This document has been created with the use of voice recognition technology. It may contain inaccuracies: (e.g. misspellings, inaccurate syntax or word sense) that have escaped review. 2. The physician, nursing staff and medical assistants are a major part of YOUR TREATMENT TEAM and will be handling your phone calls and inquiries, if any. Unless explicitly told otherwise at the time of your office visit, your study results and ensuing treatment plans will be discussed during your follow-up appointment. If you do not have a follow-up appointment and wish to discuss any issues, please set up an appointment. 3. It is my practice to not fill disability or any other insurance-related forms/documentation. All of the office notes, study results, and other pertinent documentation generated as part of your evaluation will be available to you and to your Primary Care Physician (PCP). Use of this material to complete such forms will be at the discretion of your PCP/referring physician. The above plan and management options were discussed at length with patient. Patient is in agreement with the above and verbalized understanding. Barbara Bran APRN, CNP August 16, 2023 documented in this encounter [facility] 08-16-2023 Miscellaneous Notes Images from the original note were not included. The office rec'ed and completed an electronic PA for alogliptin. This was completed and approved. Prior authorization approved Payer: [facility] Your PA request for [id number] was approved for 364 days. The PA# assigned is [id number]. Approval Details Authorization number: [id number] Authorized from August 21, 2023 to August 19, 2024 Electronic appeal: Not supported View History Medication Being Authorized alogliptin (NESINA) 25 mg tab Take 1 tablet by mouth once daily. Dispense: 90 tablet Refills: 3 Start: 08/13/2023 Class: Normal This order has been released to its destination. To be filled at: [facility] [address] [place] [address] - [address] - [phone] documented in this encounter [facility] 08-13-2023 History of Present illness Narrative Radiology Service Progress Note PATIENT NAME: Roseann Viveros DATE OF SERVICE: August 13, 2023 TIME: 4:25 PM PATIENT IDENTITY VERIFICATION COMPLETED USING TWO (2) IDENTIFIERS: Name and Date of confirmed by patient verbally. FALL SCREENING: Has the patient had 2 falls in the last year or 1 fall with injury or currently using an Ambulatory Assistive Device (Walker, Cane, Wheelchair, Crutches, etc.)? No PATIENT GENDER DATA: Female. status: : No status: NO. PATIENT RELEVANT IMPLANT DATA REVIEWED: Not Applicable PATIENT PRESENTS WITH AN IMPLANTABLE OR ATTACHED MANAGER UNIVERSAL: No RADIOLOGY DEPARTMENT: General X-ray: Exam(s) Completed: Upper Extremity X-Ray(s): Hand, right PERIPHERAL IV DATA: Not applicable SIGNED BY: RT Brenda(R) August 13, 2023 4:25 PM documented in this encounter [facility] 08-13-2023 History of Present illness Narrative Patient presents with: 6 Month Exam HPI: Patient presents today for office visit for follow up. Right hand swelling. Started last night doesn't recall any injury. No fever. Not hot or red. Has swelling over her index finger and middle finger knuckles. Wonders if she hit it while sleeping. No fever or chills Normal range of motion. Having a lot of heartburn for a couple of weeks. Doesn't let up much. Using rolaids and tums that helps a little bit. Today is somewhat better. Having laser surgery on eyes starting in September. Will do right eye first the left. Having trouble driving at night. Seeing [facility]. DM: Reports overall feeling well. Medication side effects: No. Home sugar check frequency/result: Once daily. Hypoglycemic spells: No. Watching diet: Yes. Unexpected weight loss: No. Polyuria, polydipsia: No. Vision Changes: yes seeing [facility] and scheduled for surgery. Foot lesions or numbness or pain: No. Having worsening reflux. Has acid brash. Increased belching and burping No nsaids, etoh or smoking. No black or bloody stools Tums helps some. Has been daily. Seeing pain management. Overdue to see cardiology. No new chest pain or shortness of breath. Or edema. Was to have bmp redrawn when last had labs. Component Latest Ref Rng & Units 06/10/2023 WBC 3.70 - 11.00 k/uL 6.28 RBC 3.90 - 5.20 m/uL 4.88 Hemoglobin 11.5 - 15.5 g/dL 13.6 Hematocrit 36.0 - 46.0 % 42.5 MCV 80.0 - 100.0 fL 87.1 MCH 26.0 - 34.0 pg 27.9 MCHC 30.5 - 36.0 g/dL 32.0 RDW-CV 11.5 - 15.0 % 14.5 Platelet Count 150 - 400 k/uL 255 MPV 9.0 - 12.7 fL 10.2 Neut% % 64.0 Abs Neut (ANC) 1.45 - 7.50 k/uL 4.02 Lymph% % 23.9 Abs Lymph 1.00 - 4.00 k/uL 1.50 [place]% % 7.0 Abs [place] <0.87 k/uL 0.44 Eosin% % 4.0 Abs Eosin <0.46 k/uL 0.25 Baso% % 0.8 Abs Baso <0.11 k/uL 0.05 Immature Gran % % 0.3 IMMATURE GRANS (ABS) <0.10 k/uL <0.03 NRBC /100 WBC 0.0 Absolute nRBC <0.01 k/uL <0.01 DTYPE Auto Protein, Total 6.3 - 8.0 g/dL 7.2 Albumin 3.9 - 4.9 g/dL 4.5 Calcium 8.5 - 10.2 mg/dL 10.0 Bilirubin, Total 0.2 - 1.3 mg/dL 0.2 Alkaline Phosphatase 34 - 123 U/L 46 AST 13 - 35 U/L 16 ALT 7 - 38 U/L 17 Glucose 74 - 99 mg/dL 76 BUN 7 - 21 mg/dL 20 Creatinine 0.58 - 0.96 mg/dL 1.70 (H) Sodium 136 - 144 mmol/L 142 Potassium 3.7 - 5.1 mmol/L 4.4 Chloride 97 - 105 mmol/L 105 CO2 22 - 30 mmol/L 29 Anion Gap 9 - 18 mmol/L 8 (L) eGFR >=60 mL/min/1.73m 35 (L) Cholesterol, Total <200 mg/dL 170 Triglyceride <150 mg/dL 216 (H) HDL Cholesterol >39 mg/dL 45 Non HDL Cholesterol <130 mg/dL 125 Fasting Time hrs 11 VLDL Cholesterol <30 mg/dL 43 (H) TC:HDL Ratio <5.10 3.78 LDL Cholesterol <100 mg/dL 82 LDL:HDL Ratio <2.54 1.82 Hemoglobin A1C 4.3 - 5.6 % 5.8 (H) Estimated Average Glucose mg/dL 120 Vitamin D 25 Hydroxy 31.0 - 80.0 ng/mL 39.8 MEDICATIONS: Current Outpatient Medications Medication Sig meclizine (ANTIVERT) 25 mg tab Take 1 tablet by mouth three times a day as needed. metFORMIN (GLUCOPHAGE) 1,000 mg tablet Take 0.5 tablets by mouth two times a day with meals. GFR - 40 Cholecalciferol, Vitamin D3, 25 mcg (1,000 unit) cap Take 1 capsule by mouth once daily. isosorbide mononitrate ER (IMDUR) 30 mg 24 hr tablet Take 1 tablet by mouth once daily. Take w/ 60 mg tablet for total daily dose of 90 mg. isosorbide mononitrate ER (IMDUR) 60 mg 24 hr tablet Take 1 tablet by mouth once daily. Take w/ 30 mg tablet for total daily dose of 90 mg. calcium-cholecalciferol, D3, (OSCAL+D 250) 250 mg-3.125 mcg (125 unit) per tablet Take 1 tablet by mouth two times a day. empagliflozin (JARDIANCE) 10 mg tablet Take 1 tablet by mouth daily with breakfast. atorvastatin (LIPITOR) 80 mg tablet Take 1 tablet by mouth once daily. sertraline (ZOLOFT) 100 mg tablet Take 1 tablet by mouth once daily. fenofibrate nanocrystallized (TRICOR) 48 mg tablet Take 1 tablet by mouth once daily. albuterol HFA (PROVENTIL HFA, VENTOLIN HFA) 90 mcg/actuation inhaler Inhale 2 Puffs as instructed every 6 hours as needed for wheezing/shortness of breath. atenolol (TENORMIN) 50 mg tablet Take 1 tablet by mouth once daily. blood sugar diagnostic (BLOOD GLUCOSE TEST) test strip Test blood sugar(s) 1 times daily. Dx: Type 2 DM - Controlled E11.9 Insulin: No buPROPion SR (ZYBAN SR; WELLBUTRIN SR) 150 mg 12 hr tablet Take 1 tablet by mouth every morning and 1 tablet at dinner aspirin, enteric coated (ASPIRIN, ENTERIC COATED) 81 mg EC tablet Take 1 tablet by mouth once daily. alogliptin (NESINA) 25 mg tab Take 1 tablet by mouth once daily. glimepiride (AMARYL) 2 mg tablet Take 1 tablet by mouth daily with breakfast. nitroglycerin sublingual (NITROQUICK) 0.4 mg SL tablet DISSOLVE 1 (ONE) TABLET UNDER THE TONGUE NEEDED FOR CHEST PAIN. MAY REPEAT EVERY 5 MINUTES IF NEEDED; MAX OF 3 DOSES. IF NO RELIEF, COURTNEY methocarbamol (ROBAXIN-750) 750 mg tablet Take 1 tablet by mouth three times daily. blood sugar diagnostic (TRUE METRIX GLUCOSE TEST STRIP) test strip testing once daily DX E11.9 Insulin No Lancets lancets Test blood sugar(s) One time daily. Dx: Type 2 DM - Controlled E11.9 Insulin: No. Blood Pressure Monitor Use as directed, Monitor and arm cuff. Dx: I25.119, N18.30, I.10 No current facility-administered medications for this visit. ALLERGIES: ALLERGIES Allergen Reactions Bees Bee Venom Protein (* Unknown, Swelling PAST MEDICAL HISTORY Diagnosis Date Anxiety 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 (HCC) 08/31/2016 Depression Diabetes mellitus (HCC) 2010 No nephropathy, neuropathy, retinopathy DJD (degenerative joint disease) of lumbar spine Hyperlipidemia 2011 Low back pain [id number] Unspecified , without mention of complication, unspecified 2 Miscarriage's PAST SURGICAL HISTORY Procedure Laterality Date DELIVERY ONLY , low cervical, (2) DILATION & CURETTAGE DX&/THER NONOBSTETRIC Dilation & curettage x 2 LIGATE FALLOPIAN TUBE 2002 NEUROPLASTY &/TRANSPOS MEDIAN NRV CARPAL TUNNE Bilateral 09/18/2016 THYROID FINE NEEDLE ASPIRATION Right 07/07/2021 THYROID FINE NEEDLE ASPIRATION 08/01/2021 TONSILLECTOMY & ADENOIDECTOMY <AGE 12 FAMILY HISTORY Problem Relation Age of Onset Diabetes Mother Heart Mother Cataract Mother Emphysema Father Cancer Father other (Kidney Failure) Father Arthritis Paternal Aunt Arthritis Paternal Grandmother Hands Social History Tobacco Use Smoking status: Former Packs/day: 0.30 Years: 20.00 Additional pack years: 0.00 Total pack years: 6.00 Types: Cigarettes Quit date: 03/24/2023 Years since quittin.3 Smokeless tobacco: Never Tobacco comments: TRYING TO QUIT-SMOKES 1-2 A DAY as of 11/28/15 Vaping Use Vaping Use: Former Substances: Nicotine, Flavoring Devices: Disposable Substance Use Topics Alcohol use: Not Currently Comment: Quit 2001 Drug use: Not Currently Types: Marijuana Reviewed current medications, allergies, past medical history, surgical history, family history and social history today. ROS as above. HEALTH MAINTENANCE: Reviewed health maintenance issues today and recommended the following in detail. Hepatitis B Vaccine(1 of 3 - 3-dose series) Never done Shingrix Vaccine(1 of 2) Never done Urine Albumin:Creatinine Ratio due on 06/18/2022 Influenza Vaccine(1) due on 02/19/2023 Depression Assessment due on 06/21/2023 VITALS: BP 102/52 Pulse 63 Wt 57.2 kg (126 lb) LMP 09/01/2010 SpO2 96% BMI 23.05 kg/m Last 4 Encounter Wt Readings: Date: Wt: 06/10/2023 56.3 kg (124 lb 3.2 oz) 02/08/2023 57.6 kg (127 lb) 02/02/2023 58.3 kg (128 lb 9.6 oz) 11/03/2022 59.6 kg (131 lb 6.4 oz) PHYSICAL EXAMINATION: General appearance: Well appearing, alert, in no acute distress, well-hydrated, well nourished. Skin: Skin color, texture, turgor normal, no suspicious rashes or lesions Head: Normocephalic, no masses, lesions, tenderness or abnormalities Lungs: Lungs clear to auscultation. No wheezing, rhonchi, rales Heart: RRR without murmur, gallop, or rubs. No ectopy Abdomen: Normal abdominal exam, Abdomen soft, non-tender. Bowel sounds normal. No masses, organomegaly Extremities: localized swelling over MIP joint of right hand below and extending slightly up into the index finger. Normal range of motion. No warmth. Not hot. ?? Early bruising. Peripheral pulses: Normal ASSESSMENT/PLAN: 1. 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 (HCC) - ICD9: 414.01, 413.9, ICD10: I25.119 (primary diagnosis) - overdue for follow up. - CONSULT TO CARDIOLOGY 2. Controlled type 2 diabetes mellitus without complication, without long-term current use of insulin (HCC) - ICD9: 250.00, ICD10: E11.9 - get labs. - METFORMIN 1,000 MG TABLET - GLIMEPIRIDE 2 MG TABLET - ALBUMIN/CREAT RATIO RND UR 3. Shortness of breath - ICD9: 786.05, ICD10: R06.02 - ISOSORBIDE MONONITRATE ER 30 MG TABLET,EXTENDED RELEASE 24 HR 4. Essential (primary) hypertension - ICD9: 401.9, ICD10: I10 - Controlled - Continue current medications 5. DDD (degenerative disc disease), lumbar - ICD9: 722.52, ICD10: M51.36 - stable. 6. Anxiety - ICD9: 300.00, ICD10: F41.9 - stable. 7. Radiculopathy, lumbar region - ICD9: 724.4, ICD10: M54.16 - stable. 8. Renal insufficiency - ICD9: 593.9, ICD10: N28.9 - BASIC METABOLIC PNL 9. Gastroesophageal reflux disease without esophagitis - ICD9: 530.81, ICD10: K21.9 - FAMOTIDINE 20 MG TABLET 10. Swelling of right hand - ICD9: 729.81, ICD10: M79.89 - ? Etiology. ? Superficial bruising developing. Doubt infection, gout etc. - ice and elevation. Red flags for re-assessment reviewed with patient in detail. Call if symptoms worsen at all or if not better in one to two week - CBC + DIFF - SED RATE WESTERGREN - URIC ACID BLOOD - XR HAND GENERAL 3V PA/LAT/OBL RIGHT Garrett Ventura MD documented in this encounter [facility] 06-10-2023 History of Present illness Narrative Network Security Architect offered: Patient declinesTaisha Littlejohn is a 58 year old who presents for an annual gynecologic exam without complaints. Postmenopausal: Yes since 2010 HRT use: No. Last Pap: 09/25/2016 normal HPV: 09/23/2016 negative History of abnormal pap: No Last mammogram: 2022 normal History of abnormal mammogram: No Sexually active: No Hot flashes: No Night sweats: No OB History T6 L6 SAB2 IAB0 Ectopic0 Multiple0 Live Births0 Grid Operator History LMP: 09/01/2010, Postmenopausal Age at Menarche: Age at First : Age at Menopause: Grid Operator History Comments: Sexual Activity: Yes; Male Contraception: Tubal Ligation PAST MEDICAL HISTORY Diagnosis Date Anxiety 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 (HCC) 08/31/2016 Depression Diabetes mellitus (HCC) 2010 No nephropathy, neuropathy, retinopathy DJD (degenerative joint disease) of lumbar spine Hyperlipidemia 2011 Low back pain [id number] Unspecified , without mention of complication, unspecified 2 Miscarriage's PAST SURGICAL HISTORY Procedure Laterality Date DELIVERY ONLY , low cervical, (2) DILATION & CURETTAGE DX&/THER NONOBSTETRIC Dilation & curettage x 2 LIGATE FALLOPIAN TUBE 2001 NEUROPLASTY &/TRANSPOS MEDIAN NRV CARPAL TUNNE Bilateral 09/18/2016 THYROID FINE NEEDLE ASPIRATION Right 07/07/2021 THYROID FINE NEEDLE ASPIRATION 08/01/2021 TONSILLECTOMY & ADENOIDECTOMY <AGE 12 FAMILY HISTORY Problem Relation Age of Onset Diabetes Mother Heart Mother Cataract Mother Emphysema Father Cancer Father other (Kidney Failure) Father Arthritis Paternal Aunt Arthritis Paternal Grandmother Hands SOCIAL HISTORY Social History Tobacco Use Smoking status: Every Day Packs/day: 0.30 Years: 20.00 Additional pack years: 0.00 Total pack years: 6.00 Types: Cigarettes Smokeless tobacco: Never Tobacco comments: TRYING TO QUIT-SMOKES 1-2 A DAY as of 11/28/15 Vaping Use Vaping Use: Never used Substance Use Topics Alcohol use: No Comment: Quit 2001 Drug use: No REVIEW OF SYSTEMS Abdomen: No abdominal pain, nausea, vomiting, diarrhea, or constipation. No bloating, early satiety, indigestion, or increased flatulence. Bladder: No dysuria, gross hematuria, urinary frequency, urinary urgency, or incontinence Breast: No breast lumps, nipple d/c, overlying skin changes, redness or skin retraction Allergies and current medication updated:Yes EXAM: LMP 09/01/2010 GENERAL: pleasant, female in no apparent distress HEENT: Normocephalic, atraumatic, mucus membranes moist, and no lesions NECK: Supple, full range of motion, no adenopathy, and thyroid normal DERMATOLOGY: Normal, without lesions, non-icteric, and non-hirsute BREAST: soft, non-tender, symmetric, no dominant mass, normal nipple-areolar complex, no lymphadenopathy, and no nipple discharge CHEST: Normal inspiratory effort ABDOMEN: soft, non-tender, and no masses PELVIC: external genitalia normal, normal Bartholin's glands, urethra, [place]'s glands, no vulvar lesions, no cervical lesions, good vaginal support, physiologic discharge present, normal appearing perineal body and perianal region BIMANUAL: uterus normal size, shape and consistency, no adnexal masses, and non-tender RECTOVAGINAL: deferred. NEURO: alert and oriented x3,exam grossly non-focal EXTREMITIES: normal ASSESSMENT/PLAN: 1) Health maintenance: Pap done with HPV. Mammogram ordered Mammogram up to date Nutrition, exercise and routine health maintenance exams reviewed. Calcium/Vitamin D supplementation information provided. Colon cancer screening: stool test in 2021 BMD: up to date 2) Follow up one year or sooner as needed Lani Sheth APRN.STAVE SAW OPERATOR documented in this encounter [facility] 05-11-2023 History of Present illness Narrative Subjective Roseann Viveros presents to [facility] for a follow up appointment. Since the last visit, Roseann Viveros states the pain has been stable. Current pain intensity is 9 on a scale of 0-10. Pain located in back and radiates down the Left leg Pain described as aching, sharp, and stabbing Symptoms interfere with physical activity, walking, sleeping, and sitting. Pain is exacerbated by lifting, getting up from sitting, and walking. Pain is mitigated by heating pad and ice. The medications are effective. The patient states the last dose of Methocarbamol was taken this morning and Citra was taken last month. Review of Systems Constitutional: (-) Weight Gain (-) Weight Loss (-) Fatigue Cardiovascular: (-) hx heart surgery (-) Pacemaker Respiratory: (-) Shortness of Breath (-) Cough (-) Snoring Gastrointestinal: (-) Incontinence (-) Diarrhea (-) Constipation (-) Nausea/Vomiting Endocrine: (+) Thyroid Disorder (+) Diabetes Hematologic: (-) Prolonged Bleeding (-) Easy Bruising Genitourinary: (-) Incontinence (-) Frequency (-) Urinary Urgency Skin: (-) Open sores/wound Neurologic: (+) Headache (-) Double Vision Psychiatric: (+) Depression (+) Anxiety (-) Personal History of Alcohol or Substance Abuse (-) Family History of Alcohol or Substance Abuse Chief Complaint Patient presents with: Refill Request Back Pain Physical Examination LMP 09/01/2010 General:well appearing and alert Skin: Skin color, texture, turgor normal, no rashes or lesions HEENT: normal Cardiovascular: Regular, rate and rhythm Lungs: Normal respiratory rate and rhythm, unlabored on room air Musculoskeletal: Neck: Supple; good ROM., neg facet loading Back: Tenderness on palpation over the lumbar spine. , Tenderness over the bilateral lumbar paraspinal muscles, ROM intact Extremities: Normal exam of the extremities Neurological: Mental Status: alert Motor Strength: Motor strength and tone are 5/5 all throughout. Sensory: Not Examined Gait: Antalgic. Trigger points: lumbosacral spine muscles. Assessment Assessment : Patient presents for medication refills Patient has a chronic history of low back pain prasanna radiates down the left LE to the foot Patient remains stable with no new issues Patient takes norco and robaxin to help manage her chronic pain Encounter Diagnosis ICD-10-CM 1. DDD (degenerative disc disease), lumbar M51.36 HYDROcodone-acetaminophen (NORCO) 5-325 mg per tablet 2. Spinal stenosis of lumbar region with neurogenic claudication M48.062 HYDROcodone-acetaminophen (NORCO) 5-325 mg per tablet 3. Spondylolisthesis of lumbar region M43.16 HYDROcodone-acetaminophen (NORCO) 5-325 mg per tablet 4. Radiculopathy, lumbar region M54.16 HYDROcodone-acetaminophen (NORCO) 5-325 mg per tablet OARRS Report: Reviewed: The patient's OARRS report was reviewed and is consistent with the reported medication use. The pain panel was N/A Plan Injection history was reviewed. Medication use and compliance were reviewed. 1. Continue medication management through the Pain Management Center 2. The following approved medication requests have been transmitted electronically. Requested Prescriptions Signed Prescriptions Disp Refills HYDROcodone-acetaminophen (NORCO) 5-325 mg per tablet 28 tablet 0 Sig: Take 1-2 tablets by mouth every 6 hours as needed for up to 7 days. methocarbamol (ROBAXIN-750) 750 mg tablet 90 tablet 2 Sig: Take 1 tablet by mouth three times a day. 3. Interventional procedure options discussed. None at this time 4. Encouraged regular home exercise program. 5) F/U in 3 months The level of medical decision making for this encounter was low level. I spent a total of 25 minutes on the date of the service which included preparing to see the patient, [id number] patient care, completing clinical documentation, performing a medically appropriate examination, and ordering medications, tests, or procedures. 1. This document has been created with the use of voice recognition technology. It may contain inaccuracies: (e.g. misspellings, inaccurate syntax or word sense) that have escaped review. 2. The physician, nursing staff and medical assistants are a major part of YOUR TREATMENT TEAM and will be handling your phone calls and inquiries, if any. Unless explicitly told otherwise at the time of your office visit, your study results and ensuing treatment plans will be discussed during your follow-up appointment. If you do not have a follow-up appointment and wish to discuss any issues, please set up an appointment. 3. It is my practice to not fill disability or any other insurance-related forms/documentation. All of the office notes, study results, and other pertinent documentation generated as part of your evaluation will be available to you and to your Primary Care Physician (PCP). Use of this material to complete such forms will be at the discretion of your PCP/referring physician. The above plan and management options were discussed at length with patient. Patient is in agreement with the above and verbalized understanding. Barbara Bran APRN, CNP May 11, 2023 documented in this encounter [facility] 05-06-2023 Miscellaneous Notes A new prescription for VIT D 3 was sent to the pharmacy on 05-05-23. Pt will be taking twice a day. Patient has been identified by name and date of : Yes, Provider Dr. Ventura Date 05/06/23 Time 8:47 am Patient phones for refill(s): Requested Prescriptions Pending Prescriptions Disp Refills isosorbide mononitrate ER (IMDUR) 30 mg 24 hr tablet 30 tablet 4 Sig: Take 1 tablet by mouth once daily. Take w/ 60 mg tablet for total daily dose of 90 mg. isosorbide mononitrate ER (IMDUR) 60 mg 24 hr tablet 180 tablet 0 Sig: Take 1 tablet by mouth once daily. Take w/ 30 mg tablet for total daily dose of 90 mg. Refused Prescriptions Disp Refills Cholecalciferol, Vitamin D3, 25 mcg (1,000 unit) cap 30 capsule 11 Sig: Take 1 capsule by mouth once daily. Date of last office visit in primary care: 02/08/2023 Date of next office visit in primary care: 08/13/23 Last 2 Encounter Wt Readings: Date: Wt: 02/08/2023 57.6 kg (127 lb) 02/02/2023 58.3 kg (128 lb 9.6 oz) Previous labs/tests for medication: Not applicable Thank you. Maria Teresa Flores LPN. Patient has been identified by name and date of : Yes Requested Prescriptions Pending Prescriptions Disp Refills Cholecalciferol, Vitamin D3, 25 mcg (1,000 unit) cap 30 capsule 11 Sig: Take 1 capsule by mouth once daily. isosorbide mononitrate ER (IMDUR) 30 mg 24 hr tablet 30 tablet 4 Sig: Take 1 tablet by mouth once daily. Take w/ 60 mg tablet for total daily dose of 90 mg. isosorbide mononitrate ER (IMDUR) 60 mg 24 hr tablet 180 tablet 0 Sig: Take 1 tablet by mouth once daily. Take w/ 30 mg tablet for total daily dose of 90 mg. RX INSTRUCTIONS: Patient aware RX will be sent to pharmacy. No need to notify patient. Lauren Pastor documented in this encounter [facility] 05-05-2023 Miscellaneous Notes Patient was notified Sharlene Shah Ma Rx sent. Check vit d in eight weeks Patient notified and verbalizes understanding. Upon speaking with patient it wasn't potassium that she was supposed to get it was calcium. When patient had her BMD test she was told to take calcium 1500 mg daily. Advised patient that her insurance is probably won't cover this since can be purchased OTC but we could send an order so the pharmacy can help her find what she needs. Asked her is she is using Vitamin D and states that she isn't because the script also ran out. Upon review of chart had elevated Vitamin D 1 year ago and ionized calcium. No mention in note. Her potassium was high normal. Does not need it. 12/11/22 - Atenolol 50 mg sent to [facility] with 3 refills. Confirmed with [facility] that refills are available. RPhT states patient is on med sync program and will be able to pickler helper on the . No mention of k+ in [facility]. Will forward to ensure with Dr. Ventura. Dr. Ventura, are you wanting patient to be on potassium? Steve Hidalgo MA Patient said [facility] told her they do no have any script for her atenolol. She said the last time they only gave her 30 pills in March. Rx was written in November for 90 pills with 3 refills. She also said at her last visit, she was told potassium was going to be prescribed, but nothing was sent. Please review and advise her at [phone]. documented in this encounter [facility] 04-07-2023 Miscellaneous Notes Patient notified. For her, even daily walking will suffice Roseann Viveros is calling Garrett Ventura MD today with concern regarding Lab & Test Results Bone density results; patient states she was told to exercise? What type of exercise should she be doing or NOT doing? Patient has been identified by name and birthdate. Duration of symptoms: N/A Person calling: self Call patient at: on cell [phone] (home) [phone] (cell) Was an appointment scheduled: No Closing statement: Results or non-symptom based questions: Thank you for calling [facility], your call will be returned within the next business day. Maryanne Pastor documented in this encounter [facility] 04-07-2023 Miscellaneous Notes Pt would like 90 day supply for all meds. Last OV was 02/08/23 for physical and next OV 08/13/23 for follow up. Patient has been identified by name and date of : Yes Requested Prescriptions Pending Prescriptions Disp Refills empagliflozin (JARDIANCE) 10 mg tablet 90 tablet 0 Sig: Take 1 tablet by mouth daily with breakfast. atorvastatin (LIPITOR) 80 mg tablet 90 tablet 1 Sig: Take 1 tablet by mouth once daily. sertraline (ZOLOFT) 100 mg tablet 30 tablet 2 Sig: Take 1 tablet by mouth once daily. fenofibrate nanocrystallized (TRICOR) 48 mg tablet 90 tablet 1 Sig: Take 1 tablet by mouth once daily. albuterol HFA (PROVENTIL HFA, VENTOLIN HFA) 90 mcg/actuation inhaler 18 g 0 Sig: Inhale 2 Puffs as instructed every 6 hours as needed for wheezing/shortness of breath. RX INSTRUCTIONS: Patient aware RX will be sent to pharmacy. No need to notify patient. Maryanne Pastor documented in this encounter [facility] 03-30-2023 Miscellaneous Notes Patient requesting recent bone density and fecal occult test results be mailed to her at address on record. Address has been verified as correct. Information submitted to email deployment specialist as requested Marianela De La Torre RN documented in this encounter [facility] 03-11-2023 History of Present illness Narrative Radiology Service Progress Note PATIENT NAME: Roseann Viveros DATE OF SERVICE: March 11, 2023 TIME: 7:46 AM PATIENT IDENTITY VERIFICATION COMPLETED USING TWO (2) IDENTIFIERS: Name and Date of confirmed by patient verbally. FALL SCREENING: Has the patient had 2 falls in the last year or 1 fall with injury or currently using an Ambulatory Assistive Device (Walker, Cane, Wheelchair, Crutches, etc.)? No PATIENT GENDER DATA: Female. status: : No status: NO. PATIENT RELEVANT IMPLANT DATA REVIEWED: Not Applicable RADIOLOGY DEPARTMENT: Mammography PERIPHERAL IV DATA: Not applicable SIGNED BY: Karlie Hampton March 11, 2023 7:46 AM documented in this encounter [facility] 02-08-2023 Instructions Davian Stone PA-C - 02/08/2023 5:05 PM EDT BONE MINERAL DENSITY PATIENT INSTRUCTIONS ======= Bone mineral density testing measures the amount of calcium in certain parts of your bones. This information determines how strong your bones are. The test is used to detect osteoporosis, a disease in which the bone's mineral content and density are low, increasing a person's risk of fractures. The lumbar spine (lower back) and the hip are the skeletal sites usually examined. For the test, remember that: 1. You cannot take this test if you are . 2. Eat a normal diet on the day of the test. 3. Take your medications as you normally would. 4. DO NOT take calcium supplements (such as Tums) for 24 hours before the test. 5. On the day of the test, leave valuables (jewelry or credit cards) at home. 6. The test should be performed prior to oral, rectal or IV contrast studies, or at least 7 days after any of these studies. For the test, you may be asked to wear a hospital gown. You will lie on your back, on a padded table, in a comfortable position. Generally, you can resume your usual activities immediately. HEALTH MAINTENANCE: Your Body mass index is 23.98 kg/m . (Target BMI: 19-25) Regular aerobic exercise, low fat diet, and periodic exams are recommended Living Will & Medical Power of [employer] recommended Periodic Pap smear per risk profile. Mammogram recommended yearly. Colon cancer screening by age 50 & every 5-10 years. Calcium intake of 1200-1500mg elemental calcium per day and 1,000-2,000 IU of Vitamin D3/cholecalciferol daily. Bone mineral density (by age 65 or sooner if other risk factors for osteoporosis). IMMUNIZATIONS: TD at age 50 or every 10 years Pneumovax (between ages 50-65) Recommend consideration for Zostavax (shingles vaccine) in women age 60 and older. Yearly flu vaccine in the fall for those 50 and older LABS: Thyroid screening every 5 years after age 50 Fasting blood sugar every 3 years after age 45 Fasting cholesterol every five years after age 45 documented in this encounter [facility] 02-08-2023 History of Present illness Narrative 57 year old female with c/o wellness exam Came in because told to come in for check up. Last visit with me 2017 Has cheilosis over last 2-3 weeks, treated with lysine cream. 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 (hcc) Controlled type 2 diabetes mellitus without complication, without long-term current use of insulin (hcc) Mixed hyperlipidemia Cardiovascular interval hx: 04/11/2022 NM cardiac stress/pharm CONCLUSIONS: 1. SPECT Perfusion Study: Normal. 2. There is no scintigraphic evidence for inducible ischemia. 3. No evidence of scarred myocardium. 4. Left ventricle is small. The left ventricle systolic function is hyperdynamic. 5. Right ventricle is normal in size. The right ventricle systolic function is normal. 6. This is a low risk scan. Gated Stress FBP Gated Rest FBP LVEF % 90 87 Current meds: ASA 81mg daily Atenolol 50mg daily Atorvastatin 80mg daily HS Fenofibrate 48mg daily NTG 0.4mg SL 03/13-04/02 ZIO: WNL except 2 runs SVT [id number] x 14 beats Use of NTG: Yes, if upper chest hurts quite a bit. Maybe three times in last month. Chest pain, arm, jaw pain, neck, or upper back pain suggestive of angina: as above only. SOB: off and on walking. Dyspnea with exertion: No orthopnea: No Cough: some racing or irregular heartbeats: No palpitations: Yes associates with anxiety syncopal sx: gets weak in legs and feels like she could fall, last occurrence a few days. Usually with walking through house. Has happens maybe every few weeks. Headache: tremendous headaches daily, some worse than outhers. Takes Tylenol and then lays or suits down. Occurring for a couple years. Unexplainable fatigue Yes Leg swelling: No Nausea: No diaphoresis: all the time, went through menopause age late thirties-early forties. Heartburn: a lot, takes TUMS/ rolaids Claudication: Yes, back issues with pain going down right leg, occasionally left leg: takes vicodin 1-2 tabs Smoking: Yes, 3 cigs/ day Following Low cholesterol, high fiber diet? No If on statin: muscle aches? No If on statin: GI sx or diarrhea? No Additional history none. Lab review: Component Latest Ref Rng & Units 06/18/2021 02/13/2022 02/19/2022 03/02/2022 03/16/2022 WBC 3.70 - 11.00 k/uL 7.03 8.23 RBC 3.90 - 5.20 m/uL 4.24 4.70 Hemoglobin 11.5 - 15.5 g/dL 12.6 13.1 Hematocrit 36.0 - 46.0 % 39.0 41.4 MCV 80.0 - 100.0 fL 92.0 88.1 MCH 26.0 - 34.0 pg 29.7 27.9 MCHC 30.5 - 36.0 g/dL 32.3 31.6 RDW-CV 11.5 - 15.0 % 13.4 15.0 Platelet Count 150 - 400 k/uL 252 314 MPV 9.0 - 12.7 fL 10.3 10.1 Neut% % 60.3 55.4 Abs Neut (ANC) 1.45 - 7.50 k/uL 4.22 4.56 Lymph% % 27.0 32.9 Abs Lymph 1.00 - 4.00 k/uL 1.90 2.71 [place]% % 7.4 5.7 Abs [place] <0.87 k/uL 0.52 0.47 Eosin% % 4.6 4.5 Abs Eosin <0.46 k/uL 0.32 0.37 Baso% % 0.7 1.1 Abs Baso <0.11 k/uL 0.05 0.09 Immature Gran % % 0.4 IMMATURE GRANS (ABS) <0.10 k/uL 0.03 NRBC /100 WBC 0.0 Absolute nRBC <0.01 k/uL <0.01 <0.01 DTYPE Auto Nucleated Reds 0 /100 WBC 0.0 Diff Type Auto Diff Protein, Total 6.3 - 8.0 g/dL 7.4 Albumin 3.9 - 4.9 g/dL 4.7 Calcium 8.5 - 10.2 mg/dL 10.5 (H) 10.4 (H) 10.1 10.2 Bilirubin, Total 0.2 - 1.3 mg/dL 0.2 Alkaline Phosphatase 34 - 123 U/L 54 AST 13 - 35 U/L 16 ALT 7 - 38 U/L 17 Glucose 74 - 99 mg/dL 117 (H) 242 (H) 148 (H) 99 BUN 7 - 21 mg/dL 18 16 17 14 Creatinine 0.58 - 0.96 mg/dL 1.52 (H) 1.51 (H) 1.61 (H) 1.42 (H) Sodium 136 - 144 mmol/L 140 139 137 140 Potassium 3.7 - 5.1 mmol/L 5.1 4.7 5.0 5.0 Chloride 97 - 105 mmol/L 103 101 105 104 CO2 22 - 30 mmol/L 27 27 21 (L) 24 Anion Gap 9 - 18 mmol/L 10 11 11 12 eGFR >=60 mL/min/1.73m 40 (L) 40 (L) 37 (L) 43 (L) Total Cholesterol, Nonfasting <200 mg/dL 173 Triglycerides, Nonfasting <150 mg/dL 241 (H) HDL Cholesterol, Nonfasting >39 mg/dL 43 LDL Cholesterol, Nonfasting <100 mg/dL 82 Non HDL Cholesterol, Nonfasting <130 mg/dL 130 (H) VLDL Cholesterol, Nonfasting <30 mg/dL 48 (H) Total Chol/HDL Ratio, Nonfasting <5.10 mg/dL 4.02 LDL/HDL Ratio, Nonfasting <2.54 mg/dL 1.91 Diabetes Mellitus Type 2: Current medications: Empagliflozin 10mg daily Glipizide 2mg daily with breakfast Metformin 1000mg 0.5 tab twice a day Taking medication as directed consistently? No Medication side effects: none Medical Issues / Complications: hypertension, hyperlipidemia, peripheral neuropathy, and cardiovascular disease Checking blood sugars at home? Yes. Random 90-300 Watching diet? A little Physical Activity: Sedentary Hypoglycemic spells? Yes not often, eats crackers or chocolate Any visual disturbance? No Chest pain? No New numbness, tingling or loss of sensation? No Any recent foot problems, sores or rashes? Feet are always cracked, toenails are bad. Any recent or sudden weight loss? No Change in urination? Yes. If yes: 3-4 times, recently Any recent illness? No Last eye exam: due. Last foot exam: due. HBA1C: Hemoglobin A1C (%) Date Value 02/13/2022 7.3 06/18/2021 6.7 02/18/2021 7.7 ) CMP: Glucose 99 03/16/2022 BUN 14 03/16/2022 Creatinine 1.42 03/16/2022 Sodium 140 03/16/2022 Potassium 5.0 03/16/2022 Chloride 104 03/16/2022 CO2 24 03/16/2022 Protein, Total 7.4 02/13/2022 Albumin 4.7 02/13/2022 Calcium 10.2 03/16/2022 Alkaline Phosphatase 54 02/13/2022 Bilirubin, Total 0.2 02/13/2022 AST 16 02/13/2022 ALT 17 02/13/2022 Last 2 Encounter Wt Readings: Date: Wt: 02/02/2023 58.3 kg (128 lb 9.6 oz) 11/03/2022 59.6 kg (131 lb 6.4 oz) Anxiety Current medications: Bupropion SR 150mg daily Sertraline 50mg daily Feeling pretty decent. Here recently having a lot of anxiety. Worrying about younger son, isolates in room. ? Aspbergers, issues with dad Spinal stenosis of lumbar region with neurogenic claudication Radiculopathy, lumbar region Spondylolisthesis of lumbar region Ddd (degenerative disc disease), lumbar Current medications: Methocarbamol 750mg three times a day Citra 5/325mg #28/ 3 months. Takes tylenol. Carpal tunnel syndrome, bilateral Hx Bilateral CTR Notes large bump base of left thumb. Current medications: Vitamin D3 1000u daily HISTORIES FAMILY HISTORY Problem Relation Age of Onset Diabetes Mother Heart Mother Cataract Mother Emphysema Father Cancer Father other (Kidney Failure) Father Arthritis Paternal Aunt Arthritis Paternal Grandmother Hands PAST MEDICAL HISTORY Diagnosis Date Anxiety 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 (HCC) 08/31/2016 Depression Diabetes mellitus (HCC) 2010 No nephropathy, neuropathy, retinopathy DJD (degenerative joint disease) of lumbar spine Hyperlipidemia 2011 Low back pain [id number] Unspecified , without mention of complication, unspecified 2 Miscarriage's PAST SURGICAL HISTORY Procedure Laterality Date DELIVERY ONLY , low cervical, (2) DILATION & CURETTAGE DX&/THER NONOBSTETRIC Dilation & curettage x 2 LIGATE FALLOPIAN TUBE 2002 NEUROPLASTY &/TRANSPOS MEDIAN NRV CARPAL TUNNE Bilateral 09/18/2016 THYROID FINE NEEDLE ASPIRATION Right 07/07/2021 THYROID FINE NEEDLE ASPIRATION 08/01/2021 TONSILLECTOMY & ADENOIDECTOMY <AGE 12 Social History Tobacco Use Smoking status: Every Day Packs/day: 0.30 Years: 20.00 Additional pack years: 0.00 Total pack years: 6.00 Types: Cigarettes Smokeless tobacco: Never Tobacco comments: TRYING TO QUIT-SMOKES 1-2 A DAY as of 11/28/15 Vaping Use Vaping Use: Never used Substance Use Topics Alcohol use: No Comment: Quit 2001 Drug use: No ACTIVE PROBLEM LIST Hyperlipidemia Lumbar Stenosis Ddd (Degenerative Disc Disease), Lumbar Carpal Tunnel Syndrome, Bilateral Anxiety Coronary Artery Disease Involving [place] Coronary Artery of [place] Heart With Angina Pectoris (Hcc) Radiculopathy, Lumbar Region Spondylolisthesis of Lumbar Region Spinal Stenosis of Lumbar Region With Neurogenic Claudication Controlled Type 2 Diabetes Mellitus Without Complication, Without Long-Term Current Use of Insulin (Hcc) Spondylolisthesis Current Outpatient Medications Medication Sig Dispense Refill sertraline (ZOLOFT) 50 mg tablet Take 1 tablet by mouth once daily. 30 tablet 1 isosorbide mononitrate ER (IMDUR) 30 mg 24 hr tablet Take 1 tablet by mouth once daily. Take w/ 60 mg tablet for total daily dose of 90 mg. 30 tablet 4 isosorbide mononitrate ER (IMDUR) 60 mg 24 hr tablet Take 1 tablet by mouth once daily. Take w/ 30 mg tablet for total daily dose of 90 mg. 180 tablet 0 methocarbamol (ROBAXIN-750) 750 mg tablet Take 1 tablet by mouth three times daily. 90 tablet 2 HYDROcodone-acetaminophen (NORCO) 5-325 mg per tablet Take 1-2 tablets by mouth every 6 hours as needed for up to 7 days. 28 tablet 0 atenolol (TENORMIN) 50 mg tablet Take 1 tablet by mouth once daily. 90 tablet 3 empagliflozin (JARDIANCE) 10 mg tablet Take 1 tablet by mouth daily with breakfast. 90 tablet 0 metFORMIN (GLUCOPHAGE) 1,000 mg tablet Take 0.5 tablets by mouth twice daily with meals. GFR - 40 180 tablet 1 meclizine (ANTIVERT) 25 mg tab Take 1 tablet by mouth three times daily as needed. 30 tablet 5 blood sugar diagnostic (BLOOD GLUCOSE TEST) test strip Test blood sugar(s) 1 times daily. Dx: Type 2 DM - Controlled E11.9 Insulin: No 50 Strip 11 atorvastatin (LIPITOR) 80 mg tablet Take 1 tablet by mouth once daily. 90 tablet 1 buPROPion SR (ZYBAN SR; WELLBUTRIN SR) 150 mg 12 hr tablet Take 1 tablet by mouth every morning and 1 tablet at dinner 270 tablet 3 aspirin, enteric coated (ASPIRIN, ENTERIC COATED) 81 mg EC tablet Take 1 tablet by mouth once daily. 90 tablet 3 alogliptin (NESINA) 25 mg tab Take 1 tablet by mouth once daily. 90 tablet 3 glimepiride (AMARYL) 2 mg tablet Take 1 tablet by mouth daily with breakfast. 90 tablet 3 nitroglycerin sublingual (NITROQUICK) 0.4 mg SL tablet DISSOLVE 1 (ONE) TABLET UNDER THE TONGUE NEEDED FOR CHEST PAIN. MAY REPEAT EVERY 5 MINUTES IF NEEDED; MAX OF 3 DOSES. IF NO RELIEF, COURTNEY 25 tablet 3 fenofibrate nanocrystallized (TRICOR) 48 mg tablet Take 1 tablet by mouth once daily. 90 tablet 1 albuterol HFA (PROVENTIL HFA, VENTOLIN HFA) 90 mcg/actuation inhaler Inhale 2 Puffs as instructed every 6 hours as needed for wheezing/shortness of breath. 18 g 0 Cholecalciferol, Vitamin D3, 25 mcg (1,000 unit) cap Take 1 capsule by mouth once daily. 30 capsule 11 methocarbamol (ROBAXIN-750) 750 mg tablet Take 1 tablet by mouth three times daily. 90 tablet 2 blood sugar diagnostic (TRUE METRIX GLUCOSE TEST STRIP) test strip testing once daily DX E11.9 Insulin No 50 Strip 5 Lancets lancets Test blood sugar(s) One time daily. Dx: Type 2 DM - Controlled E11.9 Insulin: No. 100 Each 11 Blood Pressure Monitor Use as directed, Monitor and arm cuff. Dx: I25.119, N18.30, I.10 1 Kit 0 UNILET SUPER THIN LANCETS 30 gauge misc USE TO TEST BLOOD SUGAR EVERY DAY 50 Each 5 No current facility-administered medications for this visit. HEPATITIS B(1 of 3 - 3-dose series) Never done COVID-19 VACCINE(1) Never done HIV SCREENING Never done BP CONTROLLED (<130/80) Never done SHINGRIX VACCINE(1 of 2) Never done PNEUMOCOCCAL(2 - PCV) due on 12/28/2019 MAMMOGRAM due on 07/21/2020 PAP TESTING due on 09/21/2021 HPV TESTING due on 09/21/2021 DIABETIC FOOT EXAM due on 02/20/2022 URINE ALBUMIN:CREATININE RATIO due on 06/18/2022 DEPRESSION ASSESSMENT Never done HBA1C due on 08/16/2022 LDL CHOLESTEROL due on 02/13/2023 COLORECTAL CANCER SCREENING due on 04/08/2023 REVIEW OF SYMPTOMS: General: denies fatigue, unusual weight loss or gain, fevers, chills. Energy Level: okay. Exercise none. Sleep: hours: interrupted but nocturia' Diet: Tobacco use: 3 cigs/ day. Caffeine use: tea. ETOH use: none. Marijuana use: none. Illicit drug use: none. Eyes: denies change in vision, glaucoma, cataracts. Bifocals glasses/contacts. Dry eyes. Last eye exam: last year. EENT: denies recurrent sinus infection, unusual nasal drainage, hoarsemess, sore throat, or recurrent sore in mouth or tongue. Cardiovascular: denies chest pain , SOB, palpitation, irregular or racing heart beats, orthopnea, leg swelling, history of rheumatic fever or prior heart conditions Respiratory: denies unusual cough, SOB, wheezing, history of recurrent bronchitis, pneumonia or tuberculosis. Denies day time drowsiness. Occasional snoring. No hx sleep apnea. GI: denies difficulty swallowing, nausea, vomiting, change in appetite. Normally once a day, formed brown. No change in bowel habits. Denies constipation, diarrhea, rectal bleeding or hemorrhoids, incontinence. No history of GERD, PUD, jaundice/hepatitis, GB disease, diverticulosis, colorectal cancer, hernias. Kidney/Bladder: Denies frequency, burning. Nocturia 3-4 , incontinence none. No history of kidney stones, recurrent UTI or kidney infection. Females: menopause early forties. No hx of ovarian cysts, no pelvic infection, no tubal , no abnormal pap. Skin: denies unusual rashes. No history of skin cancer, bleeding/changing moles, or unusual skin lesions. Neurologic: Denies recurrent DELACRUZ, change in vision, hearing or smell, tremors, unusual weakness, loss of sensation, or difficulty with balance or gait. No history of epilepsy/convulsions, migraine, head/spinal injuries, or stroke/TIA. Psychiatric: denies unusual worry, moodiness, depression, suicidal ideation or unusual disturbance in relationships. No history of psychiatric illness. Endocrine: denies unusual thirst, hunger, excessive urination, change in skin or hair texture, emotional lability. No history of thryoid, pituitary or hormonal problems. Hematologic: denies unusual bleeding, bruising, or history of anemia or blood transfusion. Denies hx blood clots. Infections: denies risk factors for HIV, hepatitis or history of unusual infection. Immunizations are up to date. Musculoskeletal: denies unusual stiffness, muscles aches, joint pain, or swelling. Denies recurrent sprain or disruption of joints, debilitating arthritis, gout, or other musculoskeletal disease. n Hx back injury, spinal stenosis, radiculopathy. EXAM: BP 104/68 Pulse 88 Resp 18 Ht 155 cm (5' 1.02) Wt 57.6 kg (127 lb) LMP 09/01/2010 SpO2 96% BMI 23.98 kg/m Pleasant adult woman of medium build in no acute distress. Alert and oriented all spheres. Normal affect and cognition. Speech normal. No deficits to learning or comprehension. Skin warm, dry, pink to lips and nailbeds. Normal turgor. No significant lesions on exam exposed skin sparing under clothed areas. Respirations regular and unlabored. HEENT: NCAT. No scleral icterus or conjunctival injection. TM's clear. Nose and oropharynx free from injection or lesion. Oral membranes moist and pink. Gums appear healthy, teeth in good repair. No cervical lymph nodes. Thyroid non-tender, no masses, or enlargement. Carotids pulses 2+/4+ without bruits. No JVD with HOB at 30 degrees. Chest is normal shape. Lungs are clear to all vanegas with good air exchange through out. HRRR without murmur or gallop. No lifts, heaves, or rubs. Abdomen: active bowel sounds throughout, soft, nontender, no masses or organomegaly. No CVAT. No abdominal bruits, axillary or inguinal nodes. Femoral pulses 2/4+ without bruit. Extrem: no clubbing or cyanosis. Edema: none. Extremities are warm and pink with prompt capillary refill. Flat feet, thick nails, toes splay. Feet:Shoes and socks removed, Are you having foot pain none, No deformities, ulcers, calluses, normal distal pulses, and sensitive to 10 gm monofilament with some patchy areas on dorsal toes. Back: slight dextrokyphoscoliosis upper thoracic Neuro: CN 212 grossly intact. Motor full upper and lower symmetric. Sensory intact distally to light touch. DTR's 0-1/4+ symmetric biceps, triceps, brachioradialis, knee jerk, Achilles. Plantars down-going bilaterally. Cerebellar intact finger to nose, heel to valle. Romberg negative, Gait and balance otherwise normal. 2cm bony prominence right radial head- states occurred following CTR. Not painful. ASSESSMENT/PLAN: 1. Wellness examination - ICD9: V70.0, ICD10: Z00.00 (primary diagnosis) - Counseled on healthy diet and regular exercise - Calcium intake with supplements or by diet of 1000 mg/day for under 50, 6942-8988 mg/day for 50+ - Mammogram ordered - exam recommended once yearly - Bone mineral density ordered - Depression screening tool completed and reviewed with patient. Based on score and interview, patient is at risk for depression and recommended increasing medication. - Patient was counseled [id number] by myself (the billing provider) for the following immunizations and vaccine components, including side effects: Pneumococcal . Patient consents for immunization and understands risks and benefits. A VIS sheet on each immunization was given to the patient. - Follow up for annual exam in one year 2. 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 (HCC) - ICD9: 414.01, 413.9, ICD10: I25.119 Continued chest pain despite normal pharm stress. Possible esophageal spasms with hx extensive reflux. - CBC + DIFF 3. Controlled type 2 diabetes mellitus without complication, without long-term current use of insulin (HCC) - ICD9: 250.00, ICD10: E11.9 - Controlled - Continue current medications - ALBUMIN/CREAT RATIO RND UR - CBC + DIFF - COMP METABOLIC PANEL - HGB A1C 4. Mixed hyperlipidemia - ICD9: 272.2, ICD10: E78.2 - Controlled - Continue current medications - Counseled on healthy diet and regular exercise - COMP METABOLIC PANEL - LIPID PANEL BASIC 5. Anxiety - ICD9: 300.00, ICD10: F41.9 Increase sertraline. Has - CBC + DIFF - COMP METABOLIC PANEL - SERTRALINE 100 MG TABLET 6. Spinal stenosis of lumbar region with neurogenic claudication - ICD9: 724.03, ICD10: M48.062 7. Radiculopathy, lumbar region - ICD9: 724.4, ICD10: M54.16 8. Spondylolisthesis of lumbar region - ICD9: 738.4, ICD10: M43.16 9. DDD (degenerative disc disease), lumbar - ICD9: 722.52, ICD10: M51.36 Chronic low back pain Follows with pain management. Stable intermittent us Citra. 10. Carpal tunnel syndrome, bilateral - ICD9: 354.0, ICD10: G56.03 Pain and swelling right radial head- identifies followed surgery. 11. Wheezing - ICD9: 786.07, ICD10: R06.2 Stable, intermittent - ALBUTEROL SULFATE HFA 90 MCG/ACTUATION AEROSOL INHALER 12. Encounter for immunization - ICD9: V03.89, ICD10: Z23 - PNEUMOCOCCAL VACCINE (PREVNAR 20) 13. Screening for cervical cancer - ICD9: V76.2, ICD10: Z12.4 - Encouraged monthly BSE - Follow up for annual exam in one year. - CONSULT TO GYNECOLOGY 14. Screening for colon cancer - ICD9: V76.51, ICD10: Z12.11 - FECAL OCCULT BLOOD TEST 15. Asymptomatic postmenopausal status - ICD9: V49.81, ICD10: Z78.0 - DXA-AXIAL SKELETON 16. Encounter for screening mammogram for malignant neoplasm of breast - ICD9: V76.12, ICD10: Z12.31 - Encouraged monthly BSE - Follow up for annual exam in one year. - [facility] SCREENING F/u 6 months M El Stone PA-C documented in this encounter [facility] 02-02-2023 History of Present illness Narrative Subjective Roseann Viveros presents to [facility] for a follow up appointment. Since the last visit, Roseann Viveros states the pain has been persistent. Current pain intensity is 8 on a scale of 0-10. Pain located in lower back area and radiates to the bilateral lower extremity posterior/lateral to the foot. Pain described as aching and sharp. The patient reports leg numbness. Pain is exacerbated by sitting, standing, lifting, getting up from sitting, lying down and walking. Pain is mitigated by medications. The medications are partially effective. The patient states the last dose of Citra was taken last month (she takes this only as needed) and Robaxin was taken this morning. Review of Systems Constitutional: (-) Weight Gain (-) Weight Loss (-) Fatigue Cardiovascular: (-) hx heart surgery (-) Pacemaker Respiratory: (-) Shortness of Breath (-) Cough (+) Snoring Gastrointestinal: (-) Incontinence (-) Diarrhea (-) Constipation (-) Nausea/Vomiting Endocrine: (+) Thyroid Disorder (+) Diabetes Hematologic: (-) Prolonged Bleeding (+) Easy Bruising Genitourinary: (-) Incontinence (-) Frequency (-) Urinary Urgency Skin: (-) Open sores/wound Neurologic: (+) Headache (-) Double Vision Psychiatric: (+) Depression (+) Anxiety (-) Personal History of Alcohol or Substance Abuse (+) Family History of Alcohol or Substance Abuse Chief Complaint Patient presents with: Refill Request Physical Examination LMP 09/01/2010 General:well appearing, alert, and in no acute distress Skin: Skin color, texture, turgor normal, no rashes or lesions HEENT: normal Cardiovascular: Regular, rate and rhythm Lungs: Normal respiratory rate and rhythm, unlabored on room air Musculoskeletal: Neck: Supple; good ROM., neg facet loading Back: Tenderness on palpation over the lumbar spine. , Tenderness over the bilateral lumbar paraspinal muscles, neg facet loading. ROM intact Extremities: Normal exam of the extremities Neurological: Mental Status: alert Motor Strength: right leg weakness Sensory: Sensation was intact to light touch all throughout. Gait: Antalgic. Trigger points: lumbosacral spine muscles. Assessment Assessment : Patient presents for a follow-up visit Patient has a chronic history of low back pain that radiates down the bilateral lower extremities both posterior and lateral to the foot She reports last week she fell because her right leg went numb with weakness Patient takes Citra as needed and Robaxin to help manage her chronic pain Encounter Diagnosis ICD-10-CM 1. DDD (degenerative disc disease), lumbar M51.36 2. Spinal stenosis of lumbar region with neurogenic claudication M48.062 3. Spondylolisthesis of lumbar region M43.16 4. Radiculopathy, lumbar region M54.16 OARRS Report: Reviewed: The patient's OARRS report was reviewed and is consistent with the reported medication use. The pain panel was N/A Discussion: A discussion was entertained regarding multicomponent back pain source. Discussed conservative options and focus on improvement of function. Discussed the rationale behind interventional approach and how it can facilitate improvement of pain but also diagnostic information that procedures provide. 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 Plan Injection history was reviewed. Medication use and compliance were reviewed. 1. Continue medication management through the [facility] 2. The following approved medication requests have been transmitted electronically. Requested Prescriptions Signed Prescriptions Disp Refills methocarbamol (ROBAXIN-750) 750 mg tablet 90 tablet 2 Sig: Take 1 tablet by mouth three times daily. HYDROcodone-acetaminophen (NORCO) 5-325 mg per tablet 28 tablet 0 Sig: Take 1-2 tablets by mouth every 6 hours as needed for up to 7 days. 3. Interventional procedure options discussed. none 4. Encouraged regular home exercise program. 5) F/U in 3 months The level of medical decision making for this encounter was low level. I spent a total of 25 minutes on the date of the service which included preparing to see the patient, [id number] patient care, completing clinical documentation, performing a medically appropriate examination, and ordering medications, tests, or procedures. 1. This document has been created with the use of voice recognition technology. It may contain inaccuracies: (e.g. misspellings, inaccurate syntax or word sense) that have escaped review. 2. The physician, nursing staff and medical assistants are a major part of YOUR TREATMENT TEAM and will be handling your phone calls and inquiries, if any. Unless explicitly told otherwise at the time of your office visit, your study results and ensuing treatment plans will be discussed during your follow-up appointment. If you do not have a follow-up appointment and wish to discuss any issues, please set up an appointment. 3. It is my practice to not fill disability or any other insurance-related forms/documentation. All of the office notes, study results, and other pertinent documentation generated as part of your evaluation will be available to you and to your Primary Care Physician (PCP). Use of this material to complete such forms will be at the discretion of your PCP/referring physician. The above plan and management options were discussed at length with patient. Patient is in agreement with the above and verbalized understanding. Barbara Bran APRN, BERTHA February 02, 2023 documented in this encounter [facility] 12-11-2022 Miscellaneous Notes Pharmacy verified in Psychiatric Patient has been identified by name and date of : Yes Patient aware RX will be sent to pharmacy. No need to notify patient. Patient phones for refill(s): Requested Prescriptions Pending Prescriptions Disp Refills atenolol (TENORMIN) 50 mg tablet 90 tablet 3 Sig: Take 1 tablet by mouth once daily. empagliflozin (JARDIANCE) 10 mg tablet 90 tablet 0 Sig: Take 1 tablet by mouth daily with breakfast. Date of last office visit : 04/29/2022 Date of next office visit : Visit date not found Last 2 Encounter Wt Readings: Date: Wt: 11/03/2022 59.6 kg (131 lb 6.4 oz) 07/27/2022 58.5 kg (129 lb) Please advise. Sonja Pastor documented in this encounter [facility] 12-03-2022 Miscellaneous Notes Patient has been identified by name and date of : Yes, Provider dr. ventura Date 12/03/22 Time 1235 Patient phones for refill(s): Requested Prescriptions Pending Prescriptions Disp Refills sertraline (ZOLOFT) 50 mg tablet 90 tablet 0 Sig: Take 1 tablet by mouth once daily. Date of last office visit in primary care: 03/30/22 Last 2 Encounter Wt Readings: Date: Wt: 11/03/2022 59.6 kg (131 lb 6.4 oz) 07/27/2022 58.5 kg (129 lb) Previous labs/tests for medication: Not applicable Please advise. Thank you. Gabrielle Ford documented in this encounter [facility] 10-05-2022 History of Present illness Narrative RADIOLOGY SERVICE PROGRESS NOTE SERVICE DATE: 10/05/2022 SERVICE TIME: 0815 PATIENT IDENTITY VERIFICATION COMPLETED USING TWO (2) METHODS: Patient confirmed name and Date of verbally. ALLERGIES REVIEWED: MEDICATIONS REVIEWED BY: PROCEDURE TYPE: NM STRESS: 0.4 mg of Lexiscan was administered IV at 0822 over 10 Seconds by Huma Limon RN Reversal agent used:N/A LOT [id number] EXP 01/19/2026 IV SITE: IV palced by nuclear tecnologist POST EXAM PIV STATUS: Discontinued by Crossword Puzzle Maker PATIENT DISCHARGED TO: Nuclear Medicine Department for post stress imaging A Diagnostic radioactive procedure has taken place, with no further precautions necessary other than routine body substance precautions. More information regarding radiation safety can be found using this link: [email or web address] %[email or web address] SIGNATURE: Huma Limon RN PATIENT NAME:Roseann Viveros DATE: 10/05/22 TIME: 8:43 AM documented in this encounter [facility] 10-05-2022 History of Present illness Narrative RADIOLOGY SERVICE PROGRESS NOTE SERVICE DATE: 10/05/2022 SERVICE TIME: 07:01 AM PATIENT IDENTITY VERIFICATION COMPLETED USING TWO (2) STANDARD IDENTIFIERS: Name and Date of confirmed by patient verbally FALL SCREENING: Has the patient had 2 falls in the last year or 1 fall with injury or currently using an Ambulatory Assistive Device (Walker, Cane, Wheelchair, Crutches, etc.)? No PATIENT GENDER DATA: .female : No ALLERGIES: Reviewed and unchanged MEDICATIONS REVIEWED: No PATIENT RELEVANT IMPLANT DATA REVIEWED: Not Applicable CREATININE: Creatinine Date Value Ref Range Status 03/16/2022 1.42 (H) 0.58 - 0.96 mg/dL Final 03/02/2022 1.61 (H) 0.58 - 0.96 mg/dL Final 02/19/2022 1.51 (H) 0.58 - 0.96 mg/dL Final Estimated Glomerular Filtration Rate Date Value Ref Range Status 03/16/2022 43 (L) >=60 mL/min/1.73m Final Comment: Estimated Glomerular Filtration Rate (eGFR) is calculated using the 2020 CKD-EPI creatinine equation. This equation utilizes serum creatinine, sex, and age as parameters. The creatinine assay has traceable calibration to isotope dilution-mass spectrometry. Refer to KDIGO guidelines for clinical interpretation. In patients with unstable renal function, e.g. those with acute kidney injury, the eGFR may not accurately reflect actual GFR. eGFR- Date Value Ref Range Status 06/18/2021 50 Final P.O.C.T. RESULTS: N/A October 05, [address] PERFORMED: No IV SITE: Ambulatory: A peripheral IV was started in the Right antecubital site with a Angio cath: 22 gauge. POST EXAM PIV STATUS: Discontinued PROCEDURE TYPE: NM Stress: 12.5 mCi [id number] was administered IV for Rest Imaging at 07:11 by Jessica Alexandre. 35.2 mCi [id number] was administered IV for Stress Imaging at 08:22 by Jessica Alexandre. ADMINISTRATION TIME: PATIENT DISCHARGED TO: Ambulatory patient, left NM department area. A Diagnostic radioactive procedure has taken place, with no further precautions necessary other than routine body substance precautions. More information regarding radiation safety can be found using this link: [email or web address] %[email or web address] SIGNATURE: JOY Villafuerte) PATIENT NAME: Roseann Viveros DATE: October 05, 2022 TIME: 3:00 PM PAGER/CONTACT #: documented in this encounter [facility] 10-02-2022 Miscellaneous Notes called pt to schedule appt - invalid number documented in this encounter [facility] 10-02-2022 Miscellaneous Notes called pt to schedule appt - invalid number documented in this encounter [facility] 10-01-2022 Miscellaneous Notes This nurse attempted to call the patient to review Stress test instructions. Both phone numbers on file stated not taking calls at this time. You are scheduled for a stress test on 10/05/22. This stress test will appear as 3 appointments on your schedule. You may get multiple reminder calls, but please arrive at the earliest scheduled appointment. Please follow below instructions: *NOTHING BY MOUTH 4 HOURS prior to this test. (you may have sips of water) *NO CAFFEINE FOR 24 HOURS PRIOR TO TESTING (including TEA even decaf, COFFEE- even decaf, CHOCOLATE, ERNA- even decaf) *Do NOT take MEDICATIONS CONTAINING CAFFEINE/XANTHINE for 24 HOURS prior to testing: Theophylline, Trental, Excedrin, Anacin, Goody Powders, No Doz, Vivarin, Midol, Diurex, Fiorinal, Fioricet, Esgic (butalbital) *Do NOT take Calcium Channel Blockers 24 HOURS prior to test. *Do NOT take Beta blockers 24 HOURS prior to test UNLESS your doctor tells you otherwise. *Do NOT use the following medications 48 HOURS prior to this test: Viagra(Sildenafil citrate), Cialis(Tadalafil), Vardenafil (Levitra, Stanyx), Avanfil (Stendra). *Do not take any of these meds prior to test unless provider directs you otherwise; Nitroglycerine (ex:Deponit, Nitrostat) Isosorbide (ex:Isordil, Sorbitrate,Imdur,Ismo). Medications on your list you should hold for 24 HOURS: atenolol (Tenormin), isosorbide mononitrate (Imdur), and nitroglycerin *All other medications may be taken as you normally would. *Guidelines for Diabetics: If you take insulin to control your blood sugar, ask you physician what amount you should take the day of the test. If you take pills to control blood sugar, on the day of the test, do NOT take them until AFTER the test. *FAILURE TO FOLLOW THESE INSTRUCTIONS WILL RESULT IN HAVING TO RESCHEDULE THE TEST. *Please wear comfortable clothes with a short-sleeved shirt and comfortable walking shoes. *If you use an inhaler, bring it along with you just in case *THIS TEST MAY TAKE UP TO 3 HOURS TO COMPLETE. Please check in on the first floor at Radiology: [address]; [place] [address] * If you need to cancel or reschedule this test or have any questions regarding this test, please call [phone]. Huma Limon RN documented in this encounter [facility] 09-20-2022 Miscellaneous Notes Summary: Rx refill Requester: Pharmacy Patients last Endocrinology visit occurred 08/28/21. Follow-up evaluation has been established No. Requested Prescriptions Pending Prescriptions Disp Refills empagliflozin (JARDIANCE) 10 mg tablet 90 tablet 3 Sig: Take 1 tablet by mouth daily with breakfast. If patient is due for an appointment please route to provider for refill consideration and also to the endo scheduling pool. PSS NOTE: Patient needs scheduled appointment Yes Jackie Garrett, Security Public Safety Officer [facility] documented in this encounter [facility] 08-28-2022 Miscellaneous Notes Called the pharmacy to see if they can run the rx again for 30 tablets. They did and it is covered with no issue. They will notify the pt. ROSEANN NATIVIDADANJALI (Kincaid: [id number]) - [id number] Alogliptin Benzoate 25MG tablets Status: Sent to Plan Created: August 20, 2022 Sent: August 21, 2022 None of those are even in the same class. She is already on glimeperide which is in the same class as glipizide. PA Advised [employer] does not cover Aloglipitin 25 mg daily. Recommended formulary alternatives below. Are we able to switch or proceed with PA? -glipizide -glipizide ER -pioglitazone Sharlene Shah Ma documented in this encounter [facility] 08-18-2022 Miscellaneous Notes CHARLENE 04/29/22 and nothing in primary care scheduled. Patient has been identified by name and date of : Yes Requested Prescriptions Pending Prescriptions Disp Refills atorvastatin (LIPITOR) 80 mg tablet 90 tablet 1 Sig: Take 1 tablet by mouth once daily. buPROPion SR (ZYBAN SR; WELLBUTRIN SR) 150 mg 12 hr tablet 270 tablet 3 Sig: Take 1 tablet by mouth every morning and 1 tablet at dinner aspirin, enteric coated (ASPIRIN, ENTERIC COATED) 81 mg EC tablet 90 tablet 3 Sig: Take 1 tablet by mouth once daily. alogliptin (NESINA) 25 mg tab 90 tablet 3 Sig: Take 1 tablet by mouth once daily. glimepiride (AMARYL) 2 mg tablet 90 tablet 3 Sig: Take 1 tablet by mouth daily with breakfast. sertraline (ZOLOFT) 50 mg tablet 90 tablet 0 Sig: Take 1 tablet by mouth once daily. nitroglycerin sublingual (NITROQUICK) 0.4 mg SL tablet 25 tablet 3 Sig: DISSOLVE 1 (ONE) TABLET UNDER THE TONGUE NEEDED FOR CHEST PAIN. MAY REPEAT EVERY 5 MINUTES IF NEEDED; MAX OF 3 DOSES. IF NO RELIEF, COURTNEY isosorbide mononitrate ER (IMDUR) 30 mg 24 hr tablet 30 tablet 4 Sig: Take 1 tablet by mouth once daily. Take w/ 60 mg tablet for total daily dose of 90 mg. isosorbide mononitrate ER (IMDUR) 60 mg 24 hr tablet 180 tablet 0 Sig: Take 1 tablet by mouth once daily. Take w/ 30 mg tablet for total daily dose of 90 mg. fenofibrate nanocrystallized (TRICOR) 48 mg tablet 90 tablet 1 Sig: Take 1 tablet by mouth once daily. RX INSTRUCTIONS: Patient aware RX will be sent to pharmacy. No need to notify patient. Steve Wilson Pss documented in this encounter [facility] 08-10-2022 Miscellaneous Notes Will see if that is ok with cardiology See update regarding pt appt. Cintia Lovelace Ma Patient sick and was not able to make it to her Nuc Med Stress Echo. Patient has been rescheduled to first opening which is October 05 in [place]. documented in this encounter [facility] 08-07-2022 Miscellaneous Notes Attempted to call pt to review instructions for upcoming stress test. No answer. Kim Jewell, ARVIND Call to pt to review stress test instructions, LVM to contact office. You are scheduled for a stress test on 08/10/22. This stress test will appear as 3 appointments on your schedule. You may get multiple reminder calls, but please arrive at the earliest scheduled appointment. *NOTHING BY MOUTH 4 HOURS prior to this test. (you may have sips of water) *NO CAFFEINE FOR 24 HOURS PRIOR TO TESTING (including TEA even decaf, COFFEE- even decaf, CHOCOLATE, ERNA- even decaf) *Do NOT take MEDICATIONS CONTAINING CAFFEINE/XANTHINE for 24 HOURS prior to testing: Theophylline, Trental, Excedrin, Anacin, Goody Powders, No Doz, Vivarin, Midol, Diurex, Fiorinal, Fioricet, Esgic (butalbital) *Do NOT take Calcium Channel Blockers 24 HOURS prior to test: *Do NOT take Beta blockers 24 HOURS prior to test UNLESS your doctor tells you otherwise: Medications on your list you should hold for 24 HOURS: Atenolol, Imdur *Do NOT use the following medications 48 HOURS prior to this test: *Do not take any of these meds prior to test unless provider directs you otherwise; Nitroglycerine (ex:Deponit, Nitrostat) Isosorbide (ex:Isordil, Sorbitrate,Imdur,Ismo). *All other medications may be taken as you normally would. *Guidelines for Diabetics: If you take insulin to control your blood sugar, ask you physician what amount you should take the day of the test. If you take pills to control blood sugar, on the day of the test, do NOT take them until AFTER the test. *FAILURE TO FOLLOW THESE INSTRUCTIONS WILL RESULT IN HAVING TO RESCHEDULE THE TEST. *If you use an inhaler, bring it along with you just in case *THIS TEST MAY TAKE UP TO 3 HOURS TO COMPLETE. Please check in on the first floor at Radiology: [address]; [place] [address] * If you need to cancel or reschedule this test or have any questions regarding this test, please call [phone]. documented in this encounter [facility] 07-27-2022 Instructions Jeanette Chi APRN.STAVE SAW OPERATOR - 07/27/2022 2:07 PM EST Images from the original note were not included. CORONARY ARTERY DISEASE View image View image WHAT IS CORONARY ARTERY DISEASE? Coronary artery disease (CAD) is a type of heart disease caused by a problem with the blood vessels that bring blood and oxygen to the heart muscle. These arteries are called the coronary arteries. This disease increases your risk for heart attack and sudden . WHAT IS THE CAUSE? Fatty deposits called plaque may build up in blood vessels and make them narrower. The narrowing decreases the amount of blood flow to the heart. Plaque also increases the chance that blood clots may form and block a blood vessel, which can cause a heart attack or stroke. Your risk for CAD may be higher if you: Have a family history of coronary artery disease at an early age Smoke Have high blood pressure Have diabetes Are very overweight Don t get enough exercise Have high levels of blood fat--for example, high cholesterol WHAT ARE THE SYMPTOMS? Coronary artery disease may not cause any symptoms. When there are symptoms, the most common one is chest pain, called angina. You may feel: A feeling of tightness or heaviness in the chest Squeezing, pressure, or burning in the chest Angina symptoms usually: Last for 5 minutes or less and go away with rest or medicine such as nitroglycerin. Happen when the heart has to work harder, such as after a heavy meal or during physical activity or emotional stress. Angina may also happen when you are resting. Call 911 for emergency help right away if you have symptoms of a heart attack. The most common symptoms include: Chest pain or pressure, squeezing, or fullness in the center of your chest that lasts more than a few minutes, or goes away and comes back (may feel like indigestion or heartburn) Pain or discomfort in one or both arms or shoulders, or in your back, neck, jaw, or stomach Trouble breathing Breaking out in a cold sweat for no known reason If your provider has prescribed nitroglycerin for angina, pain that does not go away after taking your nitroglycerin as directed Along with these symptoms, you may also feel very tired, faint, or be sick to your stomach. HOW IS IT DIAGNOSED? Your healthcare provider will ask about your symptoms and medical history and examine you. Tests may include: Blood tests An ECG (also called an EKG or electrocardiogram), which measures and records your heartbeat. An exercise treadmill test to see how your heart works when you exercise An echocardiogram, which uses sound waves (ultrasound) to see how well your heart is pumping Angiogram, which is a series of X-rays taken after your healthcare provider injects a special dye into your blood vessels to show the cabrera of the arteries and any blockage CT scan, which uses X-rays and a computer to show detailed pictures of the arteries HOW IS IT TREATED? Your treatment depends on many factors, such as your age, heart muscle function, and other health problems. At first, treatment may include diet changes and an exercise program. Your healthcare provider may prescribe medicine. Many people need to take 2 or more medicines to help prevent a heart attack or stroke. It may take several weeks or months to find the best treatment for you. Your provider may also prescribe other types of medicine to lower blood pressure, help stop chest pain, control an irregular heartbeat, help prevent blood clots, or lower blood fat (cholesterol). Your provider may recommend a daily low dose of aspirin. Taking an aspirin every day may lower your risk for a heart attack or stroke. Not everyone should take aspirin. Daily use of aspirin can cause problems, such as stomach irritation, bleeding, and hearing loss. Ask your healthcare provider if you should take aspirin and if so, how much to take. If your coronary arteries are badly blocked, you may need balloon angioplasty or bypass surgery. A balloon angioplasty opens blocked blood vessels and improves blood flow. A metal mesh device called a stent is usually left in the blood vessels to help keep them open. Bypass surgery uses blood vessels from other parts of the body, or manmade material, to make a new path around a blocked area. HOW CAN I TAKE CARE OF MYSELF? CC If you have coronary artery disease, there are things you can do to take care of yourself now and prevent problems in the future. Follow your provider's advice about activity, exercise, medicine, and follow-up visits. Lower the amount of salt, saturated and trans fats, and cholesterol in your diet. Work with your healthcare provider to control diabetes, blood pressure, or other health problems you may have. Try to keep a healthy weight. If you are overweight, talk to your provider about ways to lose weight. If you smoke, try to quit. Talk to your healthcare provider about ways to quit smoking. Ask your healthcare provider: How and when you will hear your test results How long it will take to recover What activities you should avoid and when you can return to your normal activities How to take care of yourself at home What symptoms or problems you should watch for and what to do if you have them Make sure you know when you should come back for a checkup. HOW CAN I HELP PREVENT CORONARY ARTERY DISEASE? You can prevent this disease with a heart-healthy lifestyle: Eat a healthy diet and keep a healthy weight. Stay fit with the right kind of exercise for you. Find ways to manage stress. Don t smoke. Limit your use of alcohol. Talk to your healthcare provider about your personal and family medical history and your lifestyle habits. This will help you know what you can do to lower your risk for coronary artery disease. If you have a strong family history of CAD, a healthy lifestyle may slow the start of the disease and maybe even keep you from getting it. However, you must have regular checkups to keep a close watch on the health of your heart. Developed by [employer]. Published by [employer]. Copyright 2014 [employer] and/or one of its subsidiaries. All rights reserved. documented in this encounter [facility] 07-27-2022 History of Present illness Narrative Images from the original note were not included. [facility] Card[facility] ([facility]) [address] [facility] [id number] OUTPATIENT VISIT July 27, 2022 2:00 PM Chief Complaint Patient presents with: Consult History of Present Illness: Roseann Viveros is a 57 year old female who presents to establish cardiology care. She has a PMhx of CAD (moderate on left heart catheterization from 2016), hyperlipidemia, hypertension, DM 2, CKD, syncope/near syncope. She was last evaluated in office by Dr. Price August 2019. She explains to me she has a history of lightheadedness and near syncope. These episodes have increased in frequency lately. Episodes are usually prompted by looking up. She denies preceding associated cardiac symptoms such as palpitations or chest discomfort. She states her shortness of breath remains at baseline. She does not participate in any intentional aerobic exercise. She feels limited by severe back pain. She follows with pain management. She is independent in ADLs and able to complete routine housework and care for her grandchildren without cardiac limitations. She has intermittent brief palpitations. She denies orthopnea, LE swelling. We reviewed cardiac risk factors and modifications. Unfortunately, she is a smoker. She also has a strong family history of CAD. PAST MEDICAL HISTORY Diagnosis Date Anxiety 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 (HCC) 08/31/2016 Depression Diabetes mellitus (HCC) 2010 No nephropathy, neuropathy, retinopathy DJD (degenerative joint disease) of lumbar spine Hyperlipidemia 2011 Low back pain [id number] Unspecified , without mention of complication, unspecified 2 Miscarriage's PAST SURGICAL HISTORY Procedure Laterality Date DELIVERY ONLY , low cervical, (2) DILATION & CURETTAGE DX&/THER NONOBSTETRIC Dilation & curettage x 2 LIGATE FALLOPIAN TUBE 2002 NEUROPLASTY &/TRANSPOS MEDIAN NRV CARPAL TUNNE Bilateral 09/18/2016 THYROID FINE NEEDLE ASPIRATION Right 07/07/2021 THYROID FINE NEEDLE ASPIRATION 08/01/2021 TONSILLECTOMY & ADENOIDECTOMY <AGE 12 FAMILY HISTORY Problem Relation Age of Onset Diabetes Mother Heart Mother Cataract Mother Emphysema Father Cancer Father other (Kidney Failure) Father Arthritis Paternal Aunt Arthritis Paternal Grandmother Hands Social History Tobacco Use Smoking status: Every Day Packs/day: 0.30 Years: 20.00 Pack years: 6.00 Types: Cigarettes Smokeless tobacco: Never Tobacco comments: TRYING TO QUIT-SMOKES 1-2 A DAY as of 11/28/15 Vaping Use Vaping Use: Never used Substance Use Topics Alcohol use: No Comment: Quit 2001 Drug use: No Cardiac Risk Factors: age (male over 45, female over 55), hyperlipidemia, history of smoking, diabetes, hypertension, family history of CAD ALLERGIES Allergen Reactions Bees Bee Venom Protein (* Unknown, Swelling Medications: Current Outpatient Medications Medication Sig Dispense Refill albuterol HFA (PROVENTIL HFA, VENTOLIN HFA) 90 mcg/actuation inhaler Inhale 2 Puffs as instructed every 6 hours as needed for wheezing/shortness of breath. 18 g 0 buPROPion SR (ZYBAN SR; WELLBUTRIN SR) 150 mg 12 hr tablet Take 1 tablet by mouth every morning and 1 tablet at dinner 270 tablet 3 glimepiride (AMARYL) 2 mg tablet Take 1 tablet by mouth daily with breakfast. 90 tablet 3 methocarbamol (ROBAXIN-750) 750 mg tablet Take 1 tablet by mouth three times daily. 90 tablet 2 Cholecalciferol, Vitamin D3, 25 mcg (1,000 unit) cap Take 1 capsule by mouth once daily. 30 capsule 11 isosorbide mononitrate ER (IMDUR) 60 mg 24 hr tablet Take 1 tablet by mouth once daily. Take w/ 30 mg tablet for total daily dose of 90 mg. 180 tablet 0 isosorbide mononitrate ER (IMDUR) 30 mg 24 hr tablet Take 1 tablet by mouth once daily. Take w/ 60 mg tablet for total daily dose of 90 mg. 30 tablet 4 methocarbamol (ROBAXIN-750) 750 mg tablet Take 1 tablet by mouth three times daily. 90 tablet 2 fenofibrate nanocrystallized (TRICOR) 48 mg tablet Take 1 tablet by mouth once daily. 90 tablet 1 blood sugar diagnostic (TRUE METRIX GLUCOSE TEST STRIP) test strip testing once daily DX E11.9 Insulin No 50 Strip 5 metFORMIN (GLUCOPHAGE) 1,000 mg tablet Take 0.5 tablets by mouth twice daily with meals. GFR - 40 180 tablet 1 meclizine (ANTIVERT) 25 mg tab Take 1 tablet by mouth three times daily as needed. 30 tablet 5 sertraline (ZOLOFT) 50 mg tablet Take 1 tablet by mouth once daily. 90 tablet 0 atorvastatin (LIPITOR) 80 mg tablet Take 1 tablet by mouth once daily. 90 tablet 1 Lancets lancets Test blood sugar(s) One time daily. Dx: Type 2 DM - Controlled E11.9 Insulin: No. 100 Each 11 empagliflozin (JARDIANCE) 10 mg tablet Take 1 tablet by mouth daily with breakfast. 90 tablet 3 nitroglycerin sublingual (NITROQUICK) 0.4 mg SL tablet DISSOLVE 1 (ONE) TABLET UNDER THE TONGUE NEEDED FOR CHEST PAIN. MAY REPEAT EVERY 5 MINUTES IF NEEDED; MAX OF 3 DOSES. IF NO RELIEF, COURTNEY 1 Bottle of 25 3 atenolol (TENORMIN) 50 mg tablet Take 1 tablet by mouth once daily. 90 tablet 3 aspirin, enteric coated (ASPIRIN, ENTERIC COATED) 81 mg EC tablet Take 1 tablet by mouth once daily. 90 tablet 3 Blood Pressure Monitor Use as directed, Monitor and arm cuff. Dx: I25.119, N18.30, I.10 1 Kit 0 blood sugar diagnostic (BLOOD GLUCOSE TEST) test strip Test blood sugar(s) 1 times daily. Dx: Type 2 DM - Controlled E11.9 Insulin: No 50 Strip 11 alogliptin (NESINA) 25 mg tab Take 1 tablet by mouth once daily. 90 tablet 3 UNILET SUPER THIN LANCETS 30 gauge [facility] [place] TEST BLOOD SUGAR EVERY DAY 50 Each 5 No current facility-administered medications for this visit. Review of Systems Constitutional: Negative for chills, diaphoresis, fever, malaise/fatigue and weight loss. HENT: Negative for congestion, ear pain, nosebleeds, sinus pain and sore throat. Eyes: Negative for pain. Respiratory: Positive for shortness of breath. Negative for cough and wheezing. Cardiovascular: Negative for chest pain, palpitations and leg swelling. Gastrointestinal: Negative for abdominal pain, blood in stool and melena. Genitourinary: Negative for hematuria. Musculoskeletal: Positive for back pain and neck pain. Negative for falls. Neurological: Positive for dizziness and loss of consciousness. Negative for tingling, sensory change, speech change, focal weakness, weakness and headaches. Endo/Heme/Allergies: Does not bruise/bleed easily. Psychiatric/Behavioral: Negative for depression, memory loss and suicidal ideas. The patient is not nervous/anxious and does not have insomnia. Physical Examination: Vitals:BP 112/80 Pulse 71 Wt 129 lb (58.5kg) SpO2 98% LMP 09/01/2010 BP w/Orthostatic Vitals Date and Time Orthostatic BP Orthostatic Pulse BP Pulse BP Position BP Site BP Cuff Size 07/27/22 1345 -- -- 112/80 71 Sitting Right Arm Regular Adult Last 2 Encounter Wt Readings: Date: Wt: 07/27/2022 129 lb (58.5 kg) 06/12/2022 131 lb 9.6 oz (59.7 kg) Physical Exam HENT: Head: Normocephalic. Eyes: Pupils: Pupils are equal, round, and reactive to light. Neck: Vascular: No carotid bruit. Cardiovascular: Rate and Rhythm: Normal rate and regular rhythm. Pulses: Radial pulses are 2+ on the right side and 2+ on the left side. Dorsalis pedis pulses are 2+ on the right side and 2+ on the left side. Heart sounds: Normal heart sounds, S1 normal and S2 normal. Pulmonary: Effort: Pulmonary effort is normal. No accessory muscle usage or respiratory distress. Breath sounds: Normal breath sounds. Abdominal: General: Bowel sounds are normal. Palpations: Abdomen is soft. Musculoskeletal: General: Normal range of motion. Cervical back: Normal range of motion. Right lower leg: No edema. Left lower leg: No edema. Skin: General: Skin is warm and dry. Neurological: Mental Status: She is alert and oriented to person, place, and time. Gait: Gait is intact. Psychiatric: Mood and Affect: Affect normal. Cognition and Memory: Memory normal. Judgment: Judgment normal. Most Recent Cardiac Testing 02/2022 Patient had a min HR of 53 bpm, max HR of 152 bpm, and avg HR of 71 bpm. Predominant underlying rhythm was Sinus Rhythm. 3 Supraventricular Tachycardia runs occurred, the run with the fastest interval lasting 14 beats with a max rate of 152 bpm (avg 137 bpm); the run with the fastest interval was also the longest. Isolated SVEs were rare (<1.0%), SVE Couplets were rare (<1.0%), and no SVE Triplets were present. Isolated VEs were rare (<1.0%), and no VE Couplets or VE Triplets were present. 02/17/2022 RIGHT SIDE Common carotid artery: Plaque visualized without evidence of hemodynamically significant stenosis. Internal carotid artery: 0-19% stenosis. Vertebral artery: Patent and antegrade flow noted. LEFT SIDE Common carotid artery: Plaque visualized without evidence of hemodynamically significant stenosis. Internal carotid artery: 20-39% stenosis. Vertebral artery: Patent and antegrade flow noted. [facility] 06/2015: 1. LEFT MAIN CORONARY ARTERY is short. It Is large, bifurcates into the LAD and left circumflex coronary arteries. There is no disease. 2. The LEFT ANTERIOR DESCENDING CORONARY ARTERY is medium in caliber. It has a medium-sized diagonal branch and has mild disease in the midportion of the LAD, approximately 30% narrowing. Otherwise no significant disease. 3. THE LEFT CIRCUMFLEX CORONARY ARTERY is nondominant to the posterior circulation. There is a 50% to 60% stenosis in the midportion of the left circumflex artery and there is moderate disease throughout the course of the artery. 4. The RIGHT CORONARY ARTERY is large and dominant to the posterior circulation. There is approximately a 30% to 40% narrowing in the proximal portion of the right coronary artery. 5. Left ventricular end-diastolic pressure is measured approximately 15 mmHg. 6. Left ventricular systolic function was normal with normal wall motion and a left ventricular ejection fraction of approximately 65%. 7. There was no gradient on catheter pullback across the aortic valve. IMPRESSION: 1. Mild to moderate nonobstructive coronary artery disease with the most significant lesion being a 50% to 60% stenosis of the left circumflex coronary artery. 2. Normal left heart filling pressures. 3. Normal left ventricular systolic function and wall motion with ejection fraction of 65%. 4. No evidence of aortic stenosis. 5. Discussed the case with the patient's extractions technologist, Dr. Gray. He will contact the patient for further evaluation and management. The patient's chest discomfort is very likely to be noncardiac in origin Assessment and Plan: CAD -moderate on left heart catheterization from 2016 -without symptoms concerning for angina -Continue aspirin statin atenolol and Imdur -encouraged routine activity and heart healthy diet for risk factor modification -Complete pending stress testing for restratification Hyperlipidemia -lipid panel January 2022 LDL 82 -continue Lipitor 80 mg Hypertension -112/80 -Continue current medication(s) -Encouraged dietary sodium restriction/DASH diet -Recommended regular aerobic exercise. -Recommend home blood pressure monitoring, to bring results in on next visit. -Goal of BP <130/80 DM 2 -A1c January 2022 7.3 -Continue Jardiance, metformin Palpitations/SVT -Has occasional brief palpitations -Consider echocardiogram -monitor completed reveals a few brief runs of SVT -Continue atenolol -recommended conservative measures: stay hydrated, limit stimulants/caffeine, limit stress Syncope/near syncope -Carotid ultrasound without significant stenosis -Monitor without malignant arrhythmias -No associated or preceding cardiac symptoms with episodes -Patient states looking up can elect lightheadedness. Suspect spinal stenosis could be contributing -Consider echocardiogram -Complete pending nuclear med stress testing Tobacco use -Encouraged cessation -Physiologic and physical aspects of tobacco addiction as well as strategies for quitting were discussed. -Counseling was given focusing on the harmful effects of this addiction especially given the patient's medical condition(s) which will be worsened because of the chemicals in tobacco. Follow-up in 6 months. Patient to call with any issues or concerns prior to then. Electronically signed by Jeanette Chi APRN.CNP on July 27, 2022, 1:49 PM documented in this encounter [facility] 07-02-2022 Miscellaneous Notes Patient contacted at this time Patient made aware of Dr. Valle's review and recommendations Patient also educated on additional conservative treatments such as moist heat and salonpas patches. Patient verbalizes understanding Patient states she has no additional questions or concerns at this time Patient transferred to physical therapy scheduling line PT order signed off Dr. Valle reviewed patient's XR Cervical Spine Patient saw Barbara Bran CNP on 06/09/2022 Patient also has neck pain, denies radicular symptoms. She reports that the pain starts at the base of the skull. She has daily headaches Order placed for updated cervical x-ray. Patient takes Citra for exacerbations of pain and Robaxin for muscle tightness Neck: No pain to palpation over the cervical paraspinous muscles. No pain with neck flexion, extension, or lateral flexion XR shows disc space narrowing; 2mm retrolisthesis of C5 on C6; foraminal narrowing C5-C6 Dr. Valle states that patient's symptoms are more myofascial in nature secondary to degenerative disc changes and facet joint changes. Dr. Valle recommends patient to participate in physical therapy for 4-6 weeks. If no improvement after 6 weeks of physical therapy, the next step would be a MRI of the Cervical Spine. documented in this encounter [facility] 06-13-2022 Miscellaneous Notes This REGISTRY NP called patient at [phone] and identified with name and . Notified of negative covid and flu test. Continue comfort measures for symptoms as you would for a cold. Any worsening symptoms follow up with PCP or ER. All questions answered. Betty Dickson CNP documented in this encounter [facility] 06-12-2022 Miscellaneous Notes Spoke with pt and information listed below given. Pt verbalizes understanding. Pt not able to do a virtual apt. She will come into [facility]. Maria Teresa Flores LPN Left message for patient to return call. Annmarie Babb Ma Needs seen. Can do urgent care or can be seen virtually if does not want to come in Roseann Viveros is calling Garrett Ventura MD today with concern regarding Cough, congestion bringing up mucus when coughing. Headache and neck ache (migraine) Patient has been identified by name and birthdate. Duration of symptoms: 2 days Person calling: self Call patient at: on cell [phone] (cell) Was an appointment scheduled: No Closing statement: Symptom Call: Thank you for calling [facility], your call is very important. A nurse will call in approximately 2-4 hours during business hours. If this is an emergency, please contact 911. Antionette Moya [facility] documented in this encounter [facility] 06-09-2022 Note HNO ID: [id number] Author: JESSICA Aguirre Service: Radiology Author Type: Technologist Type: Progress Notes Filed: 06/09/2022 9:35 AM Note Text: Radiology Service Progress Note PATIENT NAME: Roseann Viveros DATE OF SERVICE: June 09, 2022 TIME: 9:35 AM PATIENT IDENTITY VERIFICATION COMPLETED USING TWO (2) IDENTIFIERS: Name and Date of confirmed by patient verbally. FALL SCREENING: Has the patient had 2 falls in the last year or 1 fall with injury or currently using an Ambulatory Assistive Device (Walker, Cane, Wheelchair, Crutches, etc.)? No PATIENT GENDER DATA: Female. status: : No status: NO. PATIENT RELEVANT IMPLANT DATA REVIEWED: Not Applicable RADIOLOGY DEPARTMENT: General X-ray: Exam(s) Completed: Spine X-Ray(s): Cervical AP / LAT / OBL PERIPHERAL IV DATA: Not applicable SIGNED BY: JESSICA Aguirre June 09, 2022 9:35 AM [facility] 06-09-2022 History of Present illness Narrative SUBJECTIVE: Roseann Viveros presents to [facility] for a follow up appointment for med refills. Since the last visit, Roseann Viveros states the pain has been a little worse. Current pain intensity is 9 on a scale of 0-10. Pain located in lower back area and radiates to the right lower extremity posterior/lateral to the foot. Pain described as aching and sharp. The patient reports leg numbness. Pain is exacerbated by sitting, standing, lifting, getting up from sitting, lying down and walking. Pain is mitigated by medications. The medications are partially effective. The patient states the last dose of Citra was taken a couple weeks ago and Robaxin was taken last night. REVIEW OF SYSTEMS: Constitutional: (-) Weight Gain (-) Weight Loss (-) Fatigue Cardiovascular: (-) hx heart surgery (-) Pacemaker Respiratory: (-) Shortness of Breath (-) Cough (+) Snoring Gastrointestinal: (-) Incontinence (-) Diarrhea (-) Constipation (-) Nausea/Vomiting Endocrine: (+) Thyroid Disorder (+) Diabetes Hematologic: (-) Prolonged Bleeding (+) Easy Bruising Genitourinary: (-) Incontinence (-) Frequency (-) Urinary Urgency Skin: (-) Open sores/wound Neurologic: (+) Headache (-) Double Vision Psychiatric: (+) Depression (+) Anxiety (-) Personal History of Alcohol or Substance Abuse (+) Family History of Alcohol or Substance Abuse CHIEF COMPLAINT:Patient presents with: Refill Request OBJECTIVE: Wt 131 lb (59.4kg) LMP 09/21/2010 PHYSICAL EXAMINATION: General appearance: Well appearing, in no acute distress, alert and oriented x3 Skin: Skin color, texture, turgor normal, no rashes or lesions Neck: No pain to palpation over the cervical paraspinous muscles. No pain with neck flexion, extension, or lateral flexion Cardiovascular: Regular, rate and rhythm Lungs: Normal respiratory rate and rhythm, Lungs clear to auscultation Back: Intact range of motion with pain reproduction. Spine: Reports Tenderness on palpation: Lumbar-axial and right paraspinals Extremities: No deformities, edema, or skin discoloration. Good capillary refill. Musculoskeletal: No Joint pain, no edema , no extremity tenderness Neuro: No loss of sensation is noted. Motor skills intact Station and Gait: Normal stance, normal gait. Motor: Exhibits full strength in all four extremities. Trigger points: lumbosacral spine muscles. ASSESSMENT: Assessment : Patient presents for follow-up visit Patient is experiencing increased pain in the lower back that radiates down the bilateral lower extremities to the feet. The right side is worse than the left side. She experiences numbness and tingling in the feet Patient also has neck pain, denies radicular symptoms. She reports that the pain starts at the base of the skull. She has daily headaches Order placed for updated cervical x-ray Patient takes Citra for exacerbations of pain and Robaxin for muscle tightness Encounter Diagnosis ICD-10-CM 1. DDD (degenerative disc disease), lumbar M51.36 2. Spinal stenosis of lumbar region with neurogenic claudication M48.062 3. Spondylolisthesis of lumbar region M43.16 4. Radiculopathy, lumbar region M54.16 PDMP website checked and validated. All prescriptions have been APPROPRIATELY filled. No suspicious activity was identified. 06/09/2022 by Barbara Bran APRN.BERTHA Narcotic Agreement reviewed and signed?: N/A on June 09, 2022 The pain panel was N/A PLAN: Injection history was reviewed. Medication use and compliance were reviewed. 1. Continue medication management through the Pain Management Center 2. The following approved medication requests have been transmitted electronically. Requested Prescriptions Signed Prescriptions Disp Refills methocarbamol (ROBAXIN-750) 750 mg tablet 90 tablet 2 Sig: Take 1 tablet by mouth three times daily. HYDROcodone-acetaminophen (NORCO) 5-325 mg per tablet 28 tablet 0 Sig: Take 1-2 tablets by mouth every 6 hours as needed for up to 7 days. 3. Interventional procedure options discussed. None at time 4. Encouraged regular home exercise program. 5) F/U in prn I spent a total of 25 minutes on the date of the service which included preparing to see the patient, [id number] patient care, completing clinical documentation, performing a medically appropriate examination, and ordering medications, tests, or procedures. The above plan and management options were discussed at length with patient. Patient is in agreement with the above and verbalized understanding. Barbara Bran APRN, CNP June 09, 2022 documented in this encounter [facility] 06-09-2022 History of Present illness Narrative Radiology Service Progress Note PATIENT NAME: Roseann Viveros DATE OF SERVICE: June 09, 2022 TIME: 9:35 AM PATIENT IDENTITY VERIFICATION COMPLETED USING TWO (2) IDENTIFIERS: Name and Date of confirmed by patient verbally. FALL SCREENING: Has the patient had 2 falls in the last year or 1 fall with injury or currently using an Ambulatory Assistive Device (Walker, Cane, Wheelchair, Crutches, etc.)? No PATIENT GENDER DATA: Female. status: : No status: NO. PATIENT RELEVANT IMPLANT DATA REVIEWED: Not Applicable RADIOLOGY DEPARTMENT: General X-ray: Exam(s) Completed: Spine X-Ray(s): Cervical AP / LAT / OBL PERIPHERAL IV DATA: Not applicable SIGNED BY: JESSICA Aguirre June 09, 2022 9:35 AM documented in this encounter [facility] 05-26-2022 Miscellaneous Notes Called patient and scheduled. The following approved medication requests have been transmitted electronically. Requested Prescriptions Signed Prescriptions Disp Refills methocarbamol (ROBAXIN-750) 750 mg tablet 90 tablet 2 Sig: Take 1 tablet by mouth three times daily. Authorizing Provider: BARBARA BRAN Refused Prescriptions Disp Refills HYDROcodone-acetaminophen (NORCO) 5-325 mg per tablet 28 tablet 0 Sig: Take 1-2 tablets by mouth every 6 hours as needed for up to 7 days. Refused By: BARBARA BARN Reason for Refusal: Patient needs appointment Barbara Bran APRN.CNP Provider: Dr. Vincent Valle and Barbara Bran CNP Patient left voicemail 05/22/2022 at 1513 patient requesting refill. Please E-Scribe Last OV: 03/19/2022 with Barbara Bran CNP Future OV: N/A Last prescribed: Citra 03/19/2022 Robaxin 03/19/2022 Requested Prescriptions Pending Prescriptions Disp Refills HYDROcodone-acetaminophen (NORCO) 5-325 mg per tablet 28 tablet 0 Sig: Take 1-2 tablets by mouth every 6 hours as needed for up to 7 days. methocarbamol (ROBAXIN-750) 750 mg tablet 90 tablet 2 Sig: Take 1 tablet by mouth three times daily. Request sent to provider to review Keeley Hernandez RN documented in this encounter [facility] 04-29-2022 Instructions Sakshi Li APRN.BERTHA - 04/29/2022 10:14 AM EST Avoid looking up. Push fluids/stay well hydrated. Reschedule stress testing. Lets see if we can get you in sooner with cardiology. documented in this encounter [facility] 04-29-2022 History of Present illness Narrative This is a 56 year old female who presents today with: Patient presents with: Recheck: Follow up HISTORY OF PRESENT ILLNESS: Roseann Viveros is a 56 year old female. Patient presents with: Recheck: Follow up Pt presents today for recheck. At last visit her lisinopril was discontinued. She still refers that she gets dizzy/lightheaded when she puts arms above her head. She reports that it is when she is reaching for something overhead. Refers will get diaphoretic and weak legs. Vision will go blurry. Had normal carotids. No pauses on zio. Needs to reschedule stress testing. Has appt scheduled with cardiology in July. 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 (HCC) 08/31/2016 Depression Diabetes mellitus (HCC) 2010 No nephropathy, neuropathy, retinopathy DJD (degenerative joint disease) of lumbar spine Hyperlipidemia 2011 Low back pain [id number] Unspecified , without mention of complication, unspecified 2 Miscarriage's PAST SURGICAL HISTORY Procedure Laterality Date DELIVERY ONLY , low cervical, (2) DILATION & CURETTAGE DX&/THER NONOBSTETRIC Dilation & curettage x 2 LIGATE FALLOPIAN TUBE 2002 NEUROPLASTY &/TRANSPOS MEDIAN NRV CARPAL TUNNE Bilateral 09/18/2016 THYROID FINE NEEDLE ASPIRATION Right 07/07/2021 THYROID FINE NEEDLE ASPIRATION 08/01/2021 TONSILLECTOMY & ADENOIDECTOMY <AGE 12 ALLERGIES Bees and Bee Venom Protein (Honey Bee) MEDICATIONS Current Outpatient Medications Medication Sig Cholecalciferol, Vitamin D3, 25 mcg (1,000 unit) cap Take 1 capsule by mouth once daily. methocarbamol (ROBAXIN-750) 750 mg tablet Take 1 tablet by mouth three times daily. isosorbide mononitrate ER (IMDUR) 60 mg 24 hr tablet Take 1 tablet by mouth once daily. Take w/ 30 mg tablet for total daily dose of 90 mg. isosorbide mononitrate ER (IMDUR) 30 mg 24 hr tablet Take 1 tablet by mouth once daily. Take w/ 60 mg tablet for total daily dose of 90 mg. methocarbamol (ROBAXIN-750) 750 mg tablet Take 1 tablet by mouth three times daily. fenofibrate nanocrystallized (TRICOR) 48 mg tablet Take 1 tablet by mouth once daily. blood sugar diagnostic (TRUE METRIX GLUCOSE TEST STRIP) test strip testing once daily DX E11.9 Insulin No metFORMIN (GLUCOPHAGE) 1,000 mg tablet Take 0.5 tablets by mouth twice daily with meals. GFR - 40 meclizine (ANTIVERT) 25 mg tab Take 1 tablet by mouth three times daily as needed. glimepiride (AMARYL) 2 mg tablet Take 1 tablet by mouth daily with breakfast. sertraline (ZOLOFT) 50 mg tablet Take 1 tablet by mouth once daily. atorvastatin (LIPITOR) 80 mg tablet Take 1 tablet by mouth once daily. buPROPion SR (ZYBAN SR; WELLBUTRIN SR) 150 mg 12 hr tablet Take 1 tablet by mouth every morning and 1 tablet at dinner Lancets lancets Test blood sugar(s) One time daily. Dx: Type 2 DM - Controlled E11.9 Insulin: No. empagliflozin (JARDIANCE) 10 mg tablet Take 1 tablet by mouth daily with breakfast. nitroglycerin sublingual (NITROQUICK) 0.4 mg SL tablet DISSOLVE 1 (ONE) TABLET UNDER THE TONGUE NEEDED FOR CHEST PAIN. MAY REPEAT EVERY 5 MINUTES IF NEEDED; MAX OF 3 DOSES. IF NO RELIEF, COURTNEY atenolol (TENORMIN) 50 mg tablet Take 1 tablet by mouth once daily. aspirin, enteric coated (ASPIRIN, ENTERIC COATED) 81 mg EC tablet Take 1 tablet by mouth once daily. Blood Pressure Monitor Use as directed, Monitor and arm cuff. Dx: I25.119, N18.30, I.10 blood sugar diagnostic (BLOOD GLUCOSE TEST) test strip Test blood sugar(s) 1 times daily. Dx: Type 2 DM - Controlled E11.9 Insulin: No alogliptin (NESINA) 25 mg tab Take 1 tablet by mouth once daily. UNILET SUPER THIN LANCETS 30 gauge misc USE TO TEST BLOOD SUGAR EVERY DAY No current facility-administered medications for this visit. FAMILY HISTORY Problem Relation Age of Onset Diabetes Mother Heart Mother Cataract Mother Emphysema Father Cancer Father other (Kidney Failure) Father Arthritis Paternal Aunt Arthritis Paternal Grandmother Hands Social History Tobacco Use Smoking status: Every Day Packs/day: 0.30 Years: 20.00 Pack years: 6.00 Types: Cigarettes Smokeless tobacco: Never Tobacco comments: TRYING TO QUIT-SMOKES 1-2 A DAY as of 11/28/15 Vaping Use Vaping Use: Never used Substance Use Topics Alcohol use: No Comment: Quit 2001 Drug use: No EXAM: BP 100/72 Pulse 66 Resp 18 Wt 58.5 kg (129 lb) LMP 09/21/2010 SpO2 98% BMI 23.59 kg/m PHYSICAL EXAM: General Appearance: Well appearing, alert, in no acute distress, well-hydrated, well nourished.. Skin: Skin color, texture, turgor normal, no suspicious rashes or lesions. Head: Normocephalic, no masses, lesions, tenderness or abnormalities. Eyes: Anicteric sclera. Extraocular movements are intact. . Lungs: Lungs clear to auscultation. No wheezing, rhonchi, rales.. Heart: RRR without murmur, gallop, or rubs. No ectopy. Neurologic: Gait normal. ASSESSMENT/PLAN: 1. Near syncope - ICD9: 780.2, ICD10: R55 Question cardiac sinus syndrome. Encouraged to stay well hydrated. Avoid the triggering position. See if we can get in sooner with cardiology. - CONSULT TO CARDIOLOGY Discussed treatment plan and patient voices understanding. Patient's questions answered appropriately. Medications and potential side effects were discussed and patient voices understanding. Return to the office as scheduled or as needed for worsening/no improvement. Sakshi Li APRN.BERTHA documented in this encounter [facility] 04-09-2022 Miscellaneous Notes Left detailed message on patients identifiable voicemail. Calcium is now back in the normal range since we improved the vit d which is now high normal. Stop the once a week vit d and start low dosed vit once a day. documented in this encounter [facility] 04-06-2022 Miscellaneous Notes Stress test scheduled for 05/18.. Jung Aoyub LPN Tried to reach pt by phone and recording comes on not accepting calls at this time. Try later. Maria Teresa Flores LPN TC to pt, reached recording that states this number is not accepting calls at this time. Jung Ayoub LPN Complete let patient know that I received her stress test results. Unfortunately it was not diagnostic because her heart rate was unable to get high enough. For this reason, we should proceed with the chemical stress test. Order is in. Please help schedule. Sakshi Li APRN.BERTHA documented in this encounter [facility] 03-30-2022 Miscellaneous Notes Recording for patient & EC states the person you are trying to reach is not accepting calls at this time. Please try again later Will send letter. Padmini Dasilva MA Stay on current meds. Call if any issues. Manual Readin/60 Pulse: 59 Reason for blood pressure check - Medication adjustment Patient is: Taking medication as prescribed Yes Took medication today Yes If no, date medication last taken N/A Experiencing side effects No BP was low at last appt 03/16/22. Lisinopril was d/c at that time. Tolerating medication change well. Denies any chest pain or shortness of breath. Does still have intermittent lightheadedness. Also c/o headaches 2-3/wk; will treat with Tylenol. Daily caffeine use. Current everyday tobacco use but reports she is trying to quit. Alert and oriented. Pt has been identified by name and birthdate: Yes Allergies reviewed: Yes Latex allergy: no. Medication - prescribed and OTC reviewed and updated: Yes Do you need any prescription refills prior to your next visit: No Health Maintenance: Reviewed and not up to date and provider notified Patient advised that she would be contacted after review by PCP. Call pt's son as she does not have a working phone currently. Mikaela Alberts LPN documented in this encounter [facility] 03-30-2022 History of Present illness Narrative Manual Readin/60 Pulse: 59 Reason for blood pressure check - Medication adjustment Patient is: Taking medication as prescribed Yes Took medication today Yes If no, date medication last taken N/A Experiencing side effects No BP was low at last appt 03/16/22. Lisinopril was d/c at that time. Tolerating medication change well. Denies any chest pain or shortness of breath. Does still have intermittent lightheadedness. Also c/o headaches 2-3/wk; will treat with Tylenol. Daily caffeine use. Current everyday tobacco use but reports she is trying to quit. Alert and oriented. Pt has been identified by name and birthdate: Yes Allergies reviewed: Yes Latex allergy: no. Medication - prescribed and OTC reviewed and updated: Yes Do you need any prescription refills prior to your next visit: No Health Maintenance: Reviewed and not up to date and provider notified Patient advised that she would be contacted after review by PCP. Mikaela Alberts LPN documented in this encounter [facility] 03-20-2022 Miscellaneous Notes Left message regarding reminder for stress test on Wednesday and given instructions documented in this encounter [facility] 03-19-2022 History of Present illness Narrative SUBJECTIVE: Roseann Viveros presents to [facility] for a follow up appointment for med refills. Since the last visit, Roseann Viveros states the pain has been stable. Current pain intensity is 9 on a scale of 0-10. Pain located in lower back area and radiates to the right lower extremity posterior/lateral to the foot. Pain described as aching and sharp. The patient reports leg numbness. Pain is exacerbated by sitting, standing, lifting, getting up from sitting, lying down and walking. Pain is mitigated by medications. The medications are partially effective. The patient states the last dose of Citra was taken last month and Robaxin was taken last night. REVIEW OF SYSTEMS: Constitutional: (-) Weight Gain (-) Weight Loss (-) Fatigue Cardiovascular: (-) hx heart surgery (-) Pacemaker Respiratory: (+) Shortness of Breath (+) Cough (+) Snoring Gastrointestinal: (-) Incontinence (-) Diarrhea (-) Constipation (-) Nausea/Vomiting Endocrine: (+) Thyroid Disorder (+) Diabetes Hematologic: (-) Prolonged Bleeding (+) Easy Bruising Genitourinary: (-) Incontinence (-) Frequency (-) Urinary Urgency Skin: (-) Open sores/wound Neurologic: (+) Headache (-) Double Vision Psychiatric: (+) Depression (+) Anxiety (-) Personal History of Alcohol or Substance Abuse (+) Family History of Alcohol or Substance Abuse CHIEF COMPLAINT:Patient presents with: Low Back Pain OBJECTIVE: Pulse 66 Wt 134 lb 4.8 oz (60.9kg) SpO2 100% LMP 09/21/2010 PHYSICAL EXAMINATION: General appearance: Well appearing, in no acute distress, alert and oriented x3 Skin: Skin color, texture, turgor normal, no rashes or lesions Neck: No pain to palpation over the cervical paraspinous muscles. No pain with neck flexion, extension, or lateral flexion Cardiovascular: Regular, rate and rhythm Lungs: Normal respiratory rate and rhythm, Lungs clear to auscultation Back: Intact range of motion with pain reproduction. Spine: Reports Tenderness on palpation: Lumbar- right paraspinals Extremities: No deformities, edema, or skin discoloration. Good capillary refill. Musculoskeletal: No Joint pain, no edema , no extremity tenderness Neuro: No loss of sensation is noted. Motor skills intact Station and Gait: Normal stance, normal gait. Motor: Exhibits full strength in all four extremities. Trigger points: lumbosacral spine muscles. ASSESSMENT: Assessment : Patient presents for follow up visit Patient reports chronic low back pain that radiates down the right lower extremity to the foot Patient reports she has intermittent barbara horses in her right LE Her PCP has her on Vit D Patient takes norco prn and robaxin Encounter Diagnosis ICD-10-CM 1. DDD (degenerative disc disease), lumbar M51.36 2. Spinal stenosis of lumbar region with neurogenic claudication M48.062 3. Spondylolisthesis of lumbar region M43.16 4. Radiculopathy, lumbar region M54.16 PDMP website checked and validated. All prescriptions have been APPROPRIATELY filled. No suspicious activity was identified. 03/19/2022 by Barbara Bran APRN.STAVE SAW OPERATOR Narcotic Agreement reviewed and signed?: N/A on March 19, 2022 The pain panel was N/A Discussion: A discussion was entertained regarding multicomponent back pain source. Discussed conservative options and focus on improvement of function. Discussed the rationale behind interventional approach and how it can facilitate improvement of pain but also diagnostic information that procedures provide. residential use of any opioid pain medication is discouraged in chronic benign pain. PLAN: Injection history was reviewed. Medication use and compliance were reviewed. 1. Continue medication management through the [facility] 2. The following approved medication requests have been transmitted electronically. Requested Prescriptions Signed Prescriptions Disp Refills HYDROcodone-acetaminophen (NORCO) 5-325 mg per tablet 28 tablet 0 Sig: Take 1-2 tablets by mouth every 6 hours as needed for up to 7 days. methocarbamol (ROBAXIN-750) 750 mg tablet 90 tablet 2 Sig: Take 1 tablet by mouth three times daily. 3. Interventional procedure options discussed. none 4. Encouraged regular home exercise program. 5) F/U in prn I spent a total of 20 minutes on the date of the service which included preparing to see the patient, [id number] patient care, completing clinical documentation, performing a medically appropriate examination, and ordering medications, tests, or procedures. The above plan and management options were discussed at length with patient. Patient is in agreement with the above and verbalized understanding. Barbara Bran APRN, BERTHA March 19, 2022 documented in this encounter [facility] 03-03-2022 History of Present illness Narrative Radiology Service Progress Note PATIENT NAME: Roseann Viveros DATE OF SERVICE: March 03, 2022 TIME: 2:34 PM PATIENT IDENTITY VERIFICATION COMPLETED USING TWO (2) IDENTIFIERS: Name and Date of confirmed by patient verbally. FALL SCREENING: Has the patient had 2 falls in the last year or 1 fall with injury or currently using an Ambulatory Assistive Device (Walker, Cane, Wheelchair, Crutches, etc.)? No PATIENT GENDER DATA: Female. status: : No status: NO. PATIENT RELEVANT IMPLANT DATA REVIEWED: Not Applicable RADIOLOGY DEPARTMENT: Ultrasound PERIPHERAL IV DATA: Not applicable SIGNED BY: Jeanette Zendejas RDMS RVT March 03, 2022 2:34 PM documented in this encounter [facility] 03-02-2022 Cain Li APRN.CNP - 03/02/2022 10:07 AM EDT Recheck labs. Schedule ultrasound of the kidneys. Schedule stress test. Schedule w/ cardiology. Decrease the isosorbide to 90 mg daily (a 60 mg and a 30 mg tablet). Decrease the metformin to 1/2 tab twice daily. Recheck in a week. documented in this encounter [facility] 03-02-2022 History of Present illness Narrative This is a 56 year old female who presents today with: Patient presents with: Recheck: 2 week follow up HISTORY OF PRESENT ILLNESS: Roseann Viveros is a 56 year old female. Patient presents with: Recheck: 2 week follow up Pt presents today for recheck. She was evaluated previously for dizziness. Refers that she continues to have some lightheadedness. Refers that her legs will feel tingly and she will need to sit down. We did a carotid duplex, which was stable. Refers that if she reaches hands up over head, she becomes lightheaded. Otherwise, unable to identify anything provoking symptoms. She denies any CP/palpitations. Admits that she does get SOB w/ exertion. Previously did follow-up with cardiology for CAD, but has not been seen in some time. She did check sugar with episodes, and not hypoglycemic. 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 (HCC) 08/31/2016 Depression Diabetes mellitus (HCC) 2010 No nephropathy, neuropathy, retinopathy DJD (degenerative joint disease) of lumbar spine Hyperlipidemia 2011 Low back pain [id number] Unspecified , without mention of complication, unspecified 2 Miscarriage's PAST SURGICAL HISTORY Procedure Laterality Date DELIVERY ONLY , low cervical, (2) DILATION & CURETTAGE DX&/THER NONOBSTETRIC Dilation & curettage x 2 LIGATE FALLOPIAN TUBE 2002 NEUROPLASTY &/TRANSPOS MEDIAN NRV CARPAL TUNNE Bilateral 09/18/2016 THYROID FINE NEEDLE ASPIRATION Right 07/07/2021 THYROID FINE NEEDLE ASPIRATION 08/01/2021 TONSILLECTOMY & ADENOIDECTOMY <AGE 12 ALLERGIES Bees and Bee Venom Protein (Honey Bee) MEDICATIONS Current Outpatient Medications Medication Sig metFORMIN (GLUCOPHAGE) 1,000 mg tablet Take 0.5 tablets by mouth twice daily with meals. GFR - 40 meclizine (ANTIVERT) 25 mg tab Take 1 tablet by mouth three times daily as needed. glimepiride (AMARYL) 2 mg tablet Take 1 tablet by mouth daily with breakfast. isosorbide mononitrate ER (IMDUR) 60 mg 24 hr tablet Take 2 tablets by mouth once daily. sertraline (ZOLOFT) 50 mg tablet Take 1 tablet by mouth once daily. lisinopril (ZESTRIL, PRINIVIL) 5 mg tablet Take 0.5 tablets by mouth once daily. methocarbamol (ROBAXIN-750) 750 mg tablet Take 1 tablet by mouth three times daily. atorvastatin (LIPITOR) 80 mg tablet Take 1 tablet by mouth once daily. buPROPion SR (ZYBAN SR; WELLBUTRIN SR) 150 mg 12 hr tablet Take 1 tablet by mouth every morning and 1 tablet at dinner Lancets lancets Test blood sugar(s) One time daily. Dx: Type 2 DM - Controlled E11.9 Insulin: No. empagliflozin (JARDIANCE) 10 mg tablet Take 1 tablet by mouth daily with breakfast. nitroglycerin sublingual (NITROQUICK) 0.4 mg SL tablet DISSOLVE 1 (ONE) TABLET UNDER THE TONGUE NEEDED FOR CHEST PAIN. MAY REPEAT EVERY 5 MINUTES IF NEEDED; MAX OF 3 DOSES. IF NO RELIEF, COURTNEY atenolol (TENORMIN) 50 mg tablet Take 1 tablet by mouth once daily. aspirin, enteric coated (ASPIRIN, ENTERIC COATED) 81 mg EC tablet Take 1 tablet by mouth once daily. fenofibrate nanocrystallized (TRICOR) 48 mg tablet Take 1 tablet by mouth once daily. blood sugar diagnostic (TRUE METRIX GLUCOSE TEST STRIP) test strip testing once daily DX E11.9 Insulin No Blood Pressure Monitor Use as directed, Monitor and arm cuff. Dx: I25.119, N18.30, I.10 blood sugar diagnostic (BLOOD GLUCOSE TEST) test strip Test blood sugar(s) 1 times daily. Dx: Type 2 DM - Controlled E11.9 Insulin: No alogliptin (NESINA) 25 mg tab Take 1 tablet by mouth once daily. UNILET SUPER THIN LANCETS 30 gauge [facility] [place] TO TEST BLOOD SUGAR EVERY DAY No current facility-administered medications for this visit. FAMILY HISTORY Problem Relation Age of Onset Diabetes Mother Heart Mother Cataract Mother Emphysema Father Cancer Father other (Kidney Failure) Father Arthritis Paternal Aunt Arthritis Paternal Grandmother Hands Social History Tobacco Use Smoking status: Every Day Packs/day: 0.30 Years: 20.00 Pack years: 6.00 Types: Cigarettes Smokeless tobacco: Never Tobacco comments: TRYING TO QUIT-SMOKES 1-2 A DAY as of 11/28/15 Vaping Use Vaping Use: Never used Substance Use Topics Alcohol use: No Comment: Quit 2001 Drug use: No EXAM: BP 108/62 Pulse 69 Resp 18 LMP 09/21/2010 SpO2 94% Recheck BP BP - 80/52 PHYSICAL EXAM: General Appearance: Well appearing, alert, in no acute distress, well-hydrated, well nourished.. Skin: Skin color, texture, turgor normal, no suspicious rashes or lesions. Head: Normocephalic, no masses, lesions, tenderness or abnormalities. Eyes: Anicteric sclera. Pupils are equally round and reactive to light. Extraocular movements are intact. . Ears: External ears normal, canals clear, Normal TMs bilaterally. Oropharynx: Lips, mucosa, and tongue normal, teeth and gums normal, oropharynx normal. Neck: Supple, no adenopathy; thyroid symmetric, normal size, no bruits. Lungs: Lungs clear to auscultation. No wheezing, rhonchi, rales.. Heart: RRR without murmur, gallop, or rubs. No ectopy. Abdomen: Normal abdominal exam, Abdomen soft, non-tender. Bowel sounds normal. No masses, organomegaly. Extremities: No deformities, edema, skin discoloration, clubbing or cyanosis. Good capillary refill. . Neurologic: Gait normal. Reflexes normal and symmetric. Sensation grossly intact.. ASSESSMENT/PLAN: 1. Hypotension, unspecified hypotension type - ICD9: 458.9, ICD10: I95.9 (primary diagnosis) Pt is hypotensive. Currently taking 120 mg of imdur daily. Will decrease this to 90 mg. Recheck in 1 week. Stay hydrated. 2. Stage 3b chronic kidney disease (HCC) - ICD9: 585.3, ICD10: N18.32 Discussed decreased kidney function. Agreeable to nephrology referral. Will get ultrasound. Check urine culture. - US KIDNEY/BLADDER - URINE CULTURE - CONSULT TO CARDIOLOGY - URINALYSIS, WITH MICROSCOPIC 3. Shortness of breath - ICD9: 786.05, ICD10: R06.02 Will get stress testing. - EXERCISE STRESS ECG (WITHOUT IMAGING) - ISOSORBIDE MONONITRATE ER 30 MG TABLET,EXTENDED RELEASE 24 HR 4. Mixed hyperlipidemia - ICD9: 272.2, ICD10: E78.2 Refill: - FENOFIBRATE NANOCRYSTALLIZED 48 MG TABLET 5. 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 (HCC) - ICD9: 414.01, 413.9, ICD10: I25.119 Get reestablished with cardiology. D/t newer onset of shortness of breath and lightheadedness, in light of hx, will also get stress testing. Pt would like to try exercise. - CONSULT TO CARDIOLOGY - EXERCISE STRESS ECG (WITHOUT IMAGING) Discussed treatment plan and patient voices understanding. Patient's questions answered appropriately. Medications and potential side effects were discussed and patient voices understanding. Return to the office as scheduled or as needed for worsening/no improvement. Sakshi Li APRN.STAVE SAW OPERATOR This note was partially generated using [employer] voice recognition system. Note was reviewed for accuracy. There may be minor misspellings or grammar miscues with [employer] voice recognition. documented in this encounter [facility] 02-19-2022 Miscellaneous Notes Patient notified. Since she already akiko them. Lets see what they show first. Pt reports she came in and got the labs done this morning. Pt wanted to know if you wanted her to come back and get them redrawn in a couple weeks after this. Please call and advise. Noted. Lets have her go ahead and repeat these in the next couple of weeks. Again, please come well-hydrated. Sakshi Li APRN.CNP Patient calls and notified of results and providers instructions. Patient verbalizes understanding. Patient doesn't currently take a calcium supplement and has not been seen by a kidney doctor. Greer Martin RN TC to pt, left message to return call to office. Jung Ayoub LPN Can please let patient know that I received her lab results. Her calcium was a little elevated. I would like to have her repeat this with some additional labwork. Does she take any calcium supplements? Her kidney function is also a little worse. Has she every seen a kidney doctor? Let's have her repeat this as well. Please make sure she is well hydrated when she comes in to repeat the labwork. Her sugars are a little worse. Please watch diet! The orders are in. Sakshi Li APRN.CNP documented in this encounter [facility] 02-13-2022 Instructions Sakshi Li APRN.CNP - 02/13/2022 1:54 PM EDT Get labwork. Schedule ultrasound of the neck. You can use the cream to the corners of the mouth. Recheck in 2 weeks for follow-up. documented in this encounter [facility] 02-13-2022 History of Present illness Narrative This is a 56 year old female who presents today with: Patient presents with: Medication Follow-up HISTORY OF PRESENT ILLNESS: Roseann Viverso is a 56 year old female. Patient presents with: Medication Follow-up Patient presents for medication follow-up, however she has concerns. Episodes of dizziness, like being drunk. Lightheaded. Refers that it has been happening quite a bit. Started about a couple of months ago, but it has been more frequently lately. Refers that it happens daily. Refers that ears will start ringing when that happens. Unsure if there is changes to her vision. Refers nothing provokes it. Refers that it will last a couple of seconds. Will need to sit down until her legs stop shaking. Hasn't checked her sugar w/ symptoms. No chest pain or SOB. Refers that she will feel panicked. Some headaches. No head injuries. 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 (HCC) 08/31/2016 Depression Diabetes mellitus (HCC) 2010 No nephropathy, neuropathy, retinopathy DJD (degenerative joint disease) of lumbar spine Hyperlipidemia 2011 Low back pain [id number] Unspecified , without mention of complication, unspecified 2 Miscarriage's PAST SURGICAL HISTORY Procedure Laterality Date DELIVERY ONLY , low cervical, (2) DILATION & CURETTAGE DX&/THER NONOBSTETRIC Dilation & curettage x 2 LIGATE FALLOPIAN TUBE 2002 NEUROPLASTY &/TRANSPOS MEDIAN NRV CARPAL TUNNE Bilateral 09/18/2016 THYROID FINE NEEDLE ASPIRATION Right 07/07/2021 THYROID FINE NEEDLE ASPIRATION 08/01/2021 TONSILLECTOMY & ADENOIDECTOMY <AGE 12 ALLERGIES Bees and Bee Venom Protein (Honey Bee) MEDICATIONS Current Outpatient Medications Medication Sig isosorbide mononitrate ER (IMDUR) 60 mg 24 hr tablet Take 2 tablets by mouth once daily. sertraline (ZOLOFT) 50 mg tablet Take 1 tablet by mouth once daily. lisinopril (ZESTRIL, PRINIVIL) 5 mg tablet Take 0.5 tablets by mouth once daily. methocarbamol (ROBAXIN-750) 750 mg tablet Take 1 tablet by mouth three times daily. metFORMIN (GLUCOPHAGE) 1,000 mg tablet Take 1 tablet by mouth twice daily with meals. atorvastatin (LIPITOR) 80 mg tablet Take 1 tablet by mouth once daily. meclizine (ANTIVERT) 25 mg tab Take 1 tablet by mouth three times daily as needed. buPROPion SR (ZYBAN SR; WELLBUTRIN SR) 150 mg 12 hr tablet Take 1 tablet by mouth every morning and 1 tablet at dinner glimepiride (AMARYL) 2 mg tablet Take 1 tablet by mouth daily with breakfast. Lancets lancets Test blood sugar(s) One time daily. Dx: Type 2 DM - Controlled E11.9 Insulin: No. empagliflozin (JARDIANCE) 10 mg tablet Take 1 tablet by mouth daily with breakfast. nitroglycerin sublingual (NITROQUICK) 0.4 mg SL tablet DISSOLVE 1 (ONE) TABLET UNDER THE TONGUE NEEDED FOR CHEST PAIN. MAY REPEAT EVERY 5 MINUTES IF NEEDED; MAX OF 3 DOSES. IF NO RELIEF, COURTNEY atenolol (TENORMIN) 50 mg tablet Take 1 tablet by mouth once daily. aspirin, enteric coated (ASPIRIN, ENTERIC COATED) 81 mg EC tablet Take 1 tablet by mouth once daily. fenofibrate nanocrystallized (TRICOR) 48 mg tablet Take 1 tablet by mouth once daily. blood sugar diagnostic (TRUE METRIX GLUCOSE TEST STRIP) test strip testing once daily DX E11.9 Insulin No Blood Pressure Monitor Use as directed, Monitor and arm cuff. Dx: I25.119, N18.30, I.10 blood sugar diagnostic (BLOOD GLUCOSE TEST) test strip Test blood sugar(s) 1 times daily. Dx: Type 2 DM - Controlled E11.9 Insulin: No alogliptin (NESINA) 25 mg tab Take 1 tablet by mouth once daily. UNILET SUPER THIN LANCETS 30 gauge [facility] USE TO TEST BLOOD SUGAR EVERY DAY No current facility-administered medications for this visit. FAMILY HISTORY Problem Relation Age of Onset Diabetes Mother Heart Mother Cataract Mother Emphysema Father Cancer Father other (Kidney Failure) Father Arthritis Paternal Aunt Arthritis Paternal Grandmother Hands Social History Tobacco Use Smoking status: Every Day Packs/day: 0.30 Years: 20.00 Pack years: 6.00 Types: Cigarettes Smokeless tobacco: Never Tobacco comments: TRYING TO QUIT-SMOKES 1-2 A DAY as of 11/28/15 Vaping Use Vaping Use: Never used Substance Use Topics Alcohol use: No Comment: Quit 2001 Drug use: No EXAM: BP 110/60 Pulse 82 Resp 14 Wt 59 kg (130 lb) LMP 09/21/2010 BMI 23.78 kg/m PHYSICAL EXAM: General Appearance: Well appearing, alert, in no acute distress, well-hydrated, well nourished.. Skin: Skin color, texture, turgor normal, no suspicious rashes or lesions. Head: Normocephalic, no masses, lesions, tenderness or abnormalities. Eyes: Anicteric sclera. Pupils are equally round and reactive to light. Extraocular movements are intact. . Ears: External ears normal, canals clear. Normal TMs bilaterally. Oropharynx: Lips, mucosa, and tongue normal, teeth and gums normal, oropharynx normal. Cracking at the corners of the mouth. Neck: Supple, no adenopathy; thyroid enlarged, no bruits. Lungs: Lungs clear to auscultation. No wheezing, rhonchi, rales.. Heart: RRR without murmur, gallop, or rubs. No ectopy. Abdomen: Abdomen soft, non-tender. Bowel sounds normal. No masses, organomegaly. Extremities: No deformities, edema, skin discoloration, clubbing or cyanosis. Good capillary refill. . Neurologic: Gait normal. ASSESSMENT/PLAN: 1. Dizziness - ICD9: 780.4, ICD10: R42 (primary diagnosis) - refill: MECLIZINE 25 MG TABLET - US CAROTID ARTERIES [facility] - ECG COMPLETE - SB. No changes from previous. Encouraged to check sugar w/ symptoms. Get updated labs. Recheck in 2 weeks. 2. Controlled type 2 diabetes mellitus without complication, without long-term current use of insulin (HCC) - ICD9: 250.00, ICD10: E11.9 - GLIMEPIRIDE 2 MG TABLET - HGB A1C - CBC + DIFF Follow-up pending lab results. 3. Angular cheilitis - ICD9: 528.5, ICD10: K13.0 - NYSTATIN-TRIAMCINOLONE 100,000 UNIT/G-0.1 % TOPICAL CREAM Normal b12 last year when patient had similar symptoms. 4. Mixed hyperlipidemia - ICD9: 272.2, ICD10: E78.2 - HGB A1C - COMP METABOLIC PANEL - LIPID PANEL, NONFASTING 5. Multiple thyroid nodules - ICD9: 241.1, ICD10: E04.2 - TSH BLD - T4 FREE/FREE THYROX Discussed treatment plan and patient voices understanding. Patient's questions answered appropriately. Medications and potential side effects were discussed and patient voices understanding. Return to the office as scheduled or as needed for worsening/no improvement. Sakshi Li APRN.CNP This note was partially generated using [employer] voice recognition system. Note was reviewed for accuracy. There may be minor misspellings or grammar miscues with [employer]ree[employer] voice recognition. documented in this encounter [facility] 02-09-2022 Miscellaneous Notes CHARLENE 06/18/21 No future visit scheduled Only needs refills on Zoloft and Imdur. Please help pt set up appt. Patient has been identified by name and date of : Yes Requested Prescriptions Pending Prescriptions Disp Refills buPROPion SR (ZYBAN SR; WELLBUTRIN SR) 150 mg 12 hr tablet 270 tablet 3 Sig: Take 1 tablet by mouth every morning and 1 tablet at dinner lisinopril (ZESTRIL, PRINIVIL) 5 mg tablet 45 tablet 3 Sig: Take 0.5 tablets by mouth once daily. meclizine (ANTIVERT) 25 mg tab 30 tablet 5 Sig: Take 1 tablet by mouth three times daily as needed. isosorbide mononitrate ER (IMDUR) 60 mg 24 hr tablet 60 tablet 2 Sig: Take 2 tablets by mouth once daily. sertraline (ZOLOFT) 50 mg tablet 90 tablet 1 Sig: Take 1 tablet by mouth once daily. RX INSTRUCTIONS: Patient aware RX will be sent to pharmacy. No need to notify patient. Maryanne Flores Pss documented in this encounter [facility] 01-14-[address] Reyna has reviewed the results of the recent thyroid biopsy and it is benign. Advised pt to follow up with her PCP or systems technologist for continued US monitoring. Pt voices concern about continued growth of nodule. States she has trouble swallowing. Will report to Dr. Turcios that pt would like to discuss surgery. Mikaela Farooq RN Patient called and left a VM on nurses line in [place]. Asking for her FNA results. She can be reached at [phone]. documented in this encounter [facility] 01-05-2022 History of Present illness Narrative Antoni Reyna M.D. Department of Endocrine Surgery Endocrinology Met[place] [address] ENDOCRINE SURGERY NEW CONSULTATION NAME: Roseann Viveros [facility] NO: [id number] : 1965 REFERRING PROVIDER: Concepcion Betancur [address] [place] [address] The patient was referred by the above provider and my findings and recommendations will be communicated by way of the shared medical record or U.[place]. mail. HPI: Roseann Viveros was evaluated today for a consultation regarding the following condition(s): Multinodular goiter. New or established diagnosis: New Mode of detection: Physical exam Associated symptoms: Mild discomfort History of head and neck radiation: No Family history of endocrine tumors: No History of previous thyroid biopsy or any cervical operation: Yes; fine-needle aspiration biopsy of thyroid nodule by Dr. Bonifacio Scherer; laterality: right (July 2021) - non-diagnostic Pertinent medications (blood thinners, calcium, biotin, diuretics, lithium): No PMH: PAST MEDICAL HISTORY Diagnosis Date Anxiety 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 (HCC) 08/31/2016 Depression Diabetes mellitus (HCC) 2010 No nephropathy, neuropathy, retinopathy DJD (degenerative joint disease) of lumbar spine Hyperlipidemia 2011 Low back pain [id number] Unspecified , without mention of complication, unspecified 2 Miscarriage's PSH: PAST SURGICAL HISTORY Procedure Laterality Date DELIVERY ONLY , low cervical, (2) DILATION & CURETTAGE DX&/THER NONOBSTETRIC Dilation & curettage x 2 LIGATE FALLOPIAN TUBE 2001 NEUROPLASTY &/TRANSPOS MEDIAN NRV IRMA SZYMANSKIE Bilateral 09/18/2016 THYROID FINE NEEDLE ASPIRATION Right 07/07/2021 THYROID FINE NEEDLE ASPIRATION 08/01/2021 TONSILLECTOMY & ADENOIDECTOMY <AGE 12 Medications: Current Outpatient Medications on File Prior to Visit Medication Sig lisinopril (ZESTRIL, PRINIVIL) 5 mg tablet Take 0.5 tablets by mouth once daily. methocarbamol (ROBAXIN-750) 750 mg tablet Take 1 tablet by mouth three times daily. metFORMIN (GLUCOPHAGE) 1,000 mg tablet Take 1 tablet by mouth twice daily with meals. atorvastatin (LIPITOR) 80 mg tablet Take 1 tablet by mouth once daily. meclizine (ANTIVERT) 25 mg tab Take 1 tablet by mouth three times daily as needed. buPROPion SR (ZYBAN SR; WELLBUTRIN SR) 150 mg 12 hr tablet Take 1 tablet by mouth every morning and 1 tablet at dinner glimepiride (AMARYL) 2 mg tablet Take 1 tablet by mouth daily with breakfast. isosorbide mononitrate ER (IMDUR) 60 mg 24 hr tablet Take 2 tablets by mouth once daily. Lancets lancets Test blood sugar(s) One time daily. Dx: Type 2 DM - Controlled E11.9 Insulin: No. empagliflozin (JARDIANCE) 10 mg tablet Take 1 tablet by mouth daily with breakfast. nitroglycerin sublingual (NITROQUICK) 0.4 mg SL tablet DISSOLVE 1 (ONE) TABLET UNDER THE TONGUE NEEDED FOR CHEST PAIN. MAY REPEAT EVERY 5 MINUTES IF NEEDED; MAX OF 3 DOSES. IF NO RELIEF, COURTNEY sertraline (ZOLOFT) 50 mg tablet Take 1 tablet by mouth once daily. atenolol (TENORMIN) 50 mg tablet Take 1 tablet by mouth once daily. aspirin, enteric coated (ASPIRIN, ENTERIC COATED) 81 mg EC tablet Take 1 tablet by mouth once daily. fenofibrate nanocrystallized (TRICOR) 48 mg tablet Take 1 tablet by mouth once daily. blood sugar diagnostic (TRUE METRIX GLUCOSE TEST STRIP) test strip testing once daily DX E11.9 Insulin No gabapentin (NEURONTIN) 400 mg capsule Take 1 capsule by mouth three times daily for 90 days. Blood Pressure Monitor Use as directed, Monitor and arm cuff. Dx: I25.119, N18.30, I.10 blood sugar diagnostic (BLOOD GLUCOSE TEST) test strip Test blood sugar(s) 1 times daily. Dx: Type 2 DM - Controlled E11.9 Insulin: No alogliptin (NESINA) 25 mg tab Take 1 tablet by mouth once daily. UNILET SUPER THIN LANCETS 30 gauge misc USE TO TEST BLOOD SUGAR EVERY DAY cephALEXin (KEFLEX) 500 mg capsule Take by mouth. (Patient not taking: Reported on 01/05/2022 ) meloxicam (MOBIC) 15 mg tablet Take 1 tablet by mouth once daily. (Patient not taking: Reported on 01/05/2022 ) No current facility-administered medications on file prior to visit. All: ALLERGIES Allergen Reactions Bees Bee Venom Protein (* Unknown, Swelling SH: Social History Tobacco Use Smoking status: Current Every Day Smoker Packs/day: 0.30 Years: 20.00 Pack years: 6.00 Types: Cigarettes Smokeless tobacco: Never Used Tobacco comment: TRYING TO QUIT-SMOKES 1-2 A DAY as of 11/28/15 Vaping Use Vaping Use: Never used Substance Use Topics Alcohol use: No Comment: Quit 2001 Drug use: No FH: Pertinent history above; otherwise, non-contributory REVIEW OF SYSTEMS: GENERAL: Well-appearing, no malaise or fevers HEENT: Negative for occular, acoustic, nasal, or oral complaints NECK: See HPI RESPIRATORY: Negative for cough, hemoptysis, wheezing, or resting dyspnea CARDIOVASCULAR: Negative for resting chest pain GI: No nausea, vomiting, or diarrhea MUSCULOSKELETAL: Negative for joint swelling or acute pain PSYCH: Negative for significant mood disorder or psychiatric illness ENDOCRINE: See HPI NEURO: No history of recent syncope, paralysis, or seizures PHYSICAL EXAM: On physical exam, Roseann Viveros is well appearing, alert, and oriented and appears euthyroid. On inspection, the skin over the anterior neck is smooth, no mass is visualized. Palpation revealed neck to be supple, thyroid gland is palpable and a right thyroid nodule is appreciated. No lymphadenopathy was palpated on either side of the neck. ULTRASOUND EXAMINATION: Ultrasound examination was performed in the office. The trachea was midline. The right lobe contained a complex nodule that measured 2.28 x 0.81 x 1.11 cm. The left lobe contained A hypoechoic nodule that measured 1.11 x 0.43 x 0.95 cm. No worrisome lymphadenopathy was appreciated in either central neck compartment or jugular chain. UNIVERSAL PROTOCOL / SAFETY CHECKLIST Procedure to be performed: Consent was obtained for fine-needle aspiration of the right thyroid nodule. Under ultrasound-guidance, a 22-gauge needle was directed into the lesion and two passes were performed. The aspirates were affixed to slides, as well as, deposited in CytoLyt and sent to pathology. The patient tolerated the procedure well. Sign In: A Moment of CARE was completed. Personnel directly involved with the procedure wore the appropriate PPE (Personal Protective Equipment). Patient/Surrogate Stated/Verified: PATIENT VERIFIED(optional for EMERGENT procedures): The intended procedure Time Out Communication: Intended patient and procedure match the source documents. Consent documented and matches the intended procedure. Relevant labs, photos, and/or imaging studies have been reviewed. Sign Out: SIGN OUT (optional for EMERGENT procedures): All specimen containers correctly labeled. No instruments, equipment or retained foreign bodies applicable. Post-procedure follow-up management communicated and Plan of Care Visit completed when applicable. LABS: TSH Date Value Ref Range Status 06/18/2021 2.110 0.270 - 4.200 uU/mL Final Calcium Date Value Ref Range Status 06/18/2021 10.2 8.5 - 10.2 mg/dL Final ASSESSMENT and PLAN: In summary, Roseann Viveros has a dominant right thyroid nodule that meets criteria for biopsy. I performed a biopsy of the dominant thyroid nodule today. The patient understands the potential results of the biopsy range from non-diagnostic to intermediate to potential malignancy and the possible treatment algorithms that could follow, including repeating the biopsy or an operation. We will contact the patient to inform them of the results when they become available. I appreciate being involved in the care of your patient, and please feel free to contact me should you have additional questions. Sincerely, Antoni Reyna M.D. Endocrine Surgeon [facility] CC: Concepcion Betancur [address] [facility] [id number] documented in this encounter [facility] 12-08-2021 Miscellaneous Notes CHARLENE 06/18/21 NOV no upcoming appt Patient has been identified by name and date of : Yes Pending Prescriptions Disp Refills LISINOPRIL 5 MG TABLET 45 tablet 3 Sig: Take 0.5 tablets by mouth once daily. MAULIK: No RX INSTRUCTIONS: Patient aware RX will be sent to pharmacy. No need to notify patient. Antionette [facility] [employer] documented in this encounter [facility] 12-04-2021 Miscellaneous Notes Patient has been identified by name and date of : Yes Pending Prescriptions Disp Refills METFORMIN 1,000 MG TABLET 180 tablet 1 Sig: Take 1 tablet by mouth twice daily with meals. MAULIK: No ATORVASTATIN 80 MG TABLET 90 tablet 1 Sig: Take 1 tablet by mouth once daily. MAULIK: No MECLIZINE 25 MG TABLET 30 tablet 5 Sig: Take 1 tablet by mouth three times daily as needed. MAULIK: No BUPROPION HCL SR 150 MG TABLET,12 HR SUSTAINED-RELEASE 270 tablet 3 Sig: Take 1 tablet by mouth every morning and 1 tablet at dinner MAULIK: No RX INSTRUCTIONS: Patient aware RX will be sent to pharmacy. No need to notify patient. Maryanne Flores Pss documented in this encounter [facility] 10-06-2021 Miscellaneous Notes Patient has been identified by name and date of : Yes Patient phones for refill(s): Pending Prescriptions Disp Refills GLIMEPIRIDE 2 MG TABLET 30 tablet 2 Sig: Take 1 tablet by mouth daily with breakfast. MAULIK: No ISOSORBIDE MONONITRATE ER 60 MG TABLET,EXTENDED RELEASE 24 HR 60 tablet 2 Sig: Take 2 tablets by mouth once daily. MAULIK: No LANCETS 100 Each 11 Sig: Test blood sugar(s) One time daily. Dx: Type 2 DM - Controlled E11.9 Insulin: No. MAULIK: No Date of last office visit in primary care: 06/18/2021, no future appt scheduled Last 2 Encounter Wt Readings: Date: Wt: 08/28/2021 60.3 kg (133 lb) 07/14/2021 61.1 kg (134 lb 9.6 oz) Previous labs/tests for medication: Diabetes: Hemoglobin A1C (%) Date Value 06/18/2021 6.7 02/18/2021 7.7 Blood Pressure: BUN (mg/dL) Date Value 06/18/2021 11 Sodium (mmol/L) Date Value 06/18/2021 139 Last 1 Encounter BP Readings: Date: BP: 08/28/2021 113/62 Please advise. Thank you. Carmen Cartagena LPN Patient said she has not had this medications for some time now. documented in this encounter [facility] 09-12-2021 Miscellaneous Notes 09/12/21: patient waiting to see if son can bring in at 9:45 instead of 12:45 Requested slides from 2 previous FNAs done at [facility] in ENDOCRINE SURGERY PATIENT WORKSHEET Initial Call Date: September 12, 2021 Reason for Consult/ Referral: Goiter PATIENT DEMOGRAPHICS Name: Roseann Viveros [facility]#: [id number] : 1965 AGE: [age] year old Contact Numbers: Home: (home) Work: There is no work phone number on file. PATIENT PHYSICIAN INFORMATION Referring Doctor: Concepcion Betancur Address: Phone: [employer]: same Address: Phone: PCP: Garrett Ventura [address] [place] [address] PAST TREATMENT Office notes: SEE EPIC Medications: Aspirin No Pre-Visit Testing Component Latest Ref Rng & Units 06/18/2021 TSH 0.270 - 4.200 uU/mL 2.110 Free T4 0.9 - 1.7 ng/dL 1.0 Imaging Reports: SEE EPIC CD of Images: SEE EPIC FNA: yes x2 [facility] mireya muhammad And other at [facility] August 2021 FNA Slides: N/A Has the patient ever had thyroid or parathyroid surgery before: No Operative Reports: NONE AVAILABLE Pathology Reports: Requested documented in this encounter [facility] 08-28-2021 Instructions Rob Daniel MA - 08/28/2021 3:07 PM EST Thank you for choosing the [facility] Department of Endocrinology, Diabetes and Metabolism. Did you know that you need to call 48 hours in advance of your scheduled visit, if you are unable to make your appointment? The Endocrinology and Metabolism [facility] thanks you for your commitment, because patients not showing to their appointment results in a lost opportunity for patients to receive [facility] at the [facility]. To Cancel an appointment, please choose one of the following: - Call the Appointment Call Center at [phone] - From [employer], Go to Appointments Cancel Appts If cancelling, consider your need to reschedule to prevent further delays in your care. To Schedule an appointment, please choose one of the following: - Call the Appointment Call Center at [phone] - From [employer], Go to Appointments Request an Appt documented in this encounter [facility] 08-01-2021 Note [facility] Medical Records Department [address] [place] [id number] History Physical Exam 08/01/21 1409 MR#: [id number] Acct: [id number] Name: ROSEANN VIVEROS Rep #: [id number] : 1965 56 From: Bonifacio Scherer MD PCP: Dr. Garrett Ventura MD Status:[facility] Location: [place] History and Physical Date of Admission: 08/01/21 HISTORY AND PHYSICAL ??? Roseann Marcelo Jackeline 1965 ? REFERRING PHYSICIAN: Sakshi Li APRN.C* ??? CHIEF COMPLAINT: Consult (thyroid issues) ??? HPI: The patient is a 56 year old female with a complaint of a right thyroid nodule. This thyroid nodule was found on Ultrasound by [facility]. The patient denies pain, notes difficulty swallowing, deniesrapid enlargement of the neck, notesdysphagia, notes occasional a change in the voice, notes hot or cold intolerence. The patient has not a prior history of neck radiation treatment. ??? The patient is being seen by me today at the request of Dr. Li for my opinion and advice regarding Multinodular goiter (primary encounter diagnosis). ??? PAST MEDICAL HISTORY PAST MEDICAL HISTORY Diagnosis Date ??? Anxiety ? 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 Depression ? Diabetes mellitus (HCC) 2010 ??? No nephropathy, neuropathy, retinopathy ??? DJD (degenerative joint disease) of lumbar spine ? Hyperlipidemia 2010 ??? Low back pain [id number] ??? Unspecified , without mention of complication, unspecified ? 2 Miscarriage's ? PAST SURGICAL HISTORY PAST SURGICAL HISTORY Procedure Laterality Date ??? DELIVERY ONLY ? , low cervical, (2) ??? D C, DIAG AND/OR THERAPEUTIC ? Dilation curettage x 2 ??? LIGATE FALLOPIAN TUBE ??? 2001 ??? REMOVE TONSILS/ADENOIDS,<12 Y/O ? REVISE MEDIAN N/CARPAL TUNNEL SURG Bilateral 09/18/2016 ? CURRENT MEDICATIONS Current Outpatient Medications Medication Sig Dispense Refill ??? nystatin-triamcinolone (MYCOLOG II) cream Apply to affected area four times daily for 14 days. 15 g 0 ??? glimepiride (AMARYL) 2 mg tablet Take 1 tablet by mouth daily with breakfast. 30 tablet 2 ??? isosorbide mononitrate ER (IMDUR) 60 mg 24 hr tablet Take 2 tablets by mouth once daily. 60 tablet 2 ??? gabapentin (NEURONTIN) 400 mg capsule Take 1 capsule by mouth three times daily for 90 days. 180 capsule 1 ??? meclizine (ANTIVERT) 25 mg tab Take 1 tablet by mouth three times daily as needed. 30 tablet 5 ??? atorvastatin (LIPITOR) 80 mg tablet Take 1 tablet by mouth once daily. 90 tablet 1 ??? metFORMIN (GLUCOPHAGE) 1,000 mg tablet Take 1 tablet by mouth twice daily with meals. 180 tablet 1 ??? SITagliptin (JANUVIA) 50 mg tablet Take 1 tablet by mouth once daily. 30 tablet 11 ??? sertraline (ZOLOFT) 50 mg tablet Take 1 tablet by mouth once daily. 90 tablet 1 ??? nitroglycerin sublingual (NITROQUICK) 0.4 mg SL tablet DISSOLVE 1 (ONE) TABLET UNDER THE TONGUE NEEDED FOR CHEST PAIN. MAY REPEAT EVERY 5 MINUTES IF NEEDED; MAX OF 3 DOSES. IF NO RELIEF, COURTNEY 1 Bottle of 25 3 ??? methocarbamol (ROBAXIN-750) 750 mg tablet Take 1 tablet by mouth three times daily. 90 tablet 2 ??? buPROPion SR (ZYBAN SR; WELLBUTRIN SR) 150 mg 12 hr tablet Take 1 tablet by mouth every morning and 1 tablet at dinner 270 tablet 3 ??? fenofibrate nanocrystallized (TRICOR) 48 mg tablet Take 1 tablet by mouth once daily. 90 tablet 1 ??? lisinopril (ZESTRIL, PRINIVIL) 5 mg tablet Take 0.5 tablets by mouth once daily. 45 tablet 3 ??? meloxicam (MOBIC) 15 mg tablet Take 1 tablet by mouth once daily. 30 tablet 2 ??? Blood Pressure Monitor Use as directed, Monitor and arm cuff. Dx: I25.119, N18.30, I.10 1 Kit 0 ??? blood sugar diagnostic (BLOOD GLUCOSE TEST) test strip Test blood sugar(s) 1 times daily. Dx: Type 2 DM - Controlled E11.9 Insulin: No 50 Strip 11 ??? aspirin, enteric coated (ASPIRIN, ENTERIC COATED) 81 mg EC tablet Take 1 tablet by mouth once daily. 90 tablet 3 ??? atenolol (TENORMIN) 50 mg tablet Take 1 tablet by mouth once daily. 90 tablet 3 ??? baclofen (LIORESAL) 10 mg tablet Take 1 tablet by mouth twice daily. 60 tablet 2 ??? alogliptin (NESINA) 25 mg tab Take 1 tablet by mouth once daily. 90 tablet 3 ??? Lancets lancets Test blood sugar(s) One time daily. Dx: Type 2 DM - Controlled E11.9 Insulin: No. Unilet Super Thin 30G Lancets 100 Each 11 ??? UNILET SUPER THIN LANCETS 30 gauge misc USE TO TEST BLOOD SUGAR EVERY DAY 50 Each 5 ??? blood sugar diagnostic (FREESTYLE LITE STRIPS) test strip 1 Strip once daily. E11.9 (Patient not taking: Reported on 07/01/2021 ) 50 Strip 5 ??? No current facility-administered medications for this visit. ? ALLERGIES: Bees ??? PERSONAL HISTORY: SOCIAL HISTORY Social History ??? Tob (more content not included)... [facility] 07-06-2020 History of Present illness Narrative Radiology Service Progress Note PATIENT NAME: Roseann Viveros DATE OF SERVICE: July 06, 2020 TIME: 12:11 PM PATIENT IDENTITY VERIFICATION COMPLETED USING TWO (2) IDENTIFIERS: Name and Date of confirmed by patient verbally. FALL SCREENING: Has the patient had 2 falls in the last year or 1 fall with injury or currently using an Ambulatory Assistive Device (Walker, Cane, Wheelchair, Crutches, etc.)? No PATIENT GENDER DATA: Female. status: : No status: NO. PATIENT RELEVANT IMPLANT DATA REVIEWED: Not Applicable RADIOLOGY DEPARTMENT: General X-ray: Exam(s) Completed: Upper Extremity X-Ray(s): Wrist, left : PERIPHERAL IV DATA: Not applicable SIGNED BY: Courtney Sheehan July 06, 2020 12:11 PM documented in this encounter [facility] 06-19-2013 History of Past i llness Narrative Problem Noted Date Resolved Date Lateral epicondylitis of elbow 06/19/2013 0 09/04/2016 Chest pain 09/22/2012 07/06/2020 Numbness and tingling 09/22/2012 09/04/2016 Diabetes mellitus 03/25/2012 07/06/2020 Pain in joint, shoulder region 10/20/2011 0 09/04/2016 Disorders of bursae and tend ons in shoulder region, unspecified 10/20/2011 09/04/2016 Lumbago 10/02/2011 09/04/2016 documented as of this encounter (statuses as of 09/12/2021) [facility] History of Past illness Narrative* Problem Noted Date Resolved Date Lateral epicondylitis of elbow 06/19/2013 0 09/04/2016 Chest pain 09/22/2012 07/06/2020 Numbness and tingling 09/22/2012 09/04/2016 Diabetes mellitus 03/25/2012 07/06/2020 Pain in joint, shoulder region 10/20/2011 0 09/04/2016 Disorders of bursae and tend ons in shoulder region, unspecified 10/20/2011 09/04/2016 Lumbago 10/02/2011 09/04/2016 documented as of this encounter (statuses as of 10/07/2021) [facility] History of Past illness Narrative* Problem Noted Date Resolved Date Lateral epicondylitis of elbow 06/19/2013 0 09/04/2016 Chest pain 09/22/2012 07/06/2020 Numbness and tingling 09/22/2012 09/04/2016 Diabetes mellitus 03/25/2012 07/06/2020 Pain in joint, shoulder region 10/20/2011 0 09/04/2016 Disorders of bursae and tend ons in shoulder region, unspecified 10/20/2011 09/04/2016 Lumbago 10/02/2011 09/04/2016 documented as of this encounter (statuses as of 12/04/2021) [facility] History of Past illness Narrative* Problem Noted Date Resolved Date Lateral epicondylitis of elbow 06/19/2013 0 09/04/2016 Chest pain 09/22/2012 07/06/2020 Numbness and tingling 09/22/2012 09/04/2016 Diabetes mellitus 03/25/2012 07/06/2020 Pain in joint, shoulder region 10/20/2011 0 09/04/2016 Disorders of bursae and tend ons in shoulder region, unspecified 10/20/2011 09/04/2016 Lumbago 10/02/2011 09/04/2016 documented as of this encounter (statuses as of 12/08/2021) [facility] History of Past illness Narrative* Problem Noted Date Resolved Date Lateral epicondylitis of elbow 06/19/2013 0 09/04/2016 Chest pain 09/22/2012 07/06/2020 Numbness and tingling 09/22/2012 09/04/2016 Diabetes mellitus 03/25/2012 07/06/2020 Pain in joint, shoulder region 10/20/2011 0 09/04/2016 Disorders of bursae and tend ons in shoulder region, unspecified 10/20/2011 09/04/2016 Lumbago 10/02/2011 09/04/2016 documented as of this encounter (statuses as of 01/05/2022) [facility] History of Past illness Narrative* Problem Noted Date Resolved Date Lateral epicondylitis of elbow 06/19/2013 0 09/04/2016 Chest pain 09/22/2012 07/06/2020 Numbness and tingling 09/22/2012 09/04/2016 Diabetes mellitus 03/25/2012 07/06/2020 Pain in joint, shoulder region 10/20/2011 0 09/04/2016 Disorders of bursae and tend ons in shoulder region, unspecified 10/20/2011 09/04/2016 Lumbago 10/02/2011 09/04/2016 documented as of this encounter (statuses as of 01/06/2022) [facility] History of Past illness Narrative* Problem Noted Date Resolved Date Lateral epicondylitis of elbow 06/19/2013 0 09/04/2016 Chest pain 09/22/2012 07/06/2020 Numbness and tingling 09/22/2012 09/04/2016 Diabetes mellitus 03/25/2012 07/06/2020 Pain in joint, shoulder region 10/20/2011 0 09/04/2016 Disorders of bursae and tend ons in shoulder region, unspecified 10/20/2011 09/04/2016 Lumbago 10/02/2011 09/04/2016 documented as of this encounter (statuses as of 01/14/2022) [facility] History of Past illness Narrative* Problem Noted Date Resolved Date Lateral epicondylitis of elbow 06/19/2013 0 09/04/2016 Chest pain 09/22/2012 07/06/2020 Numbness and tingling 09/22/2012 09/04/2016 Diabetes mellitus 03/25/2012 07/06/2020 Pain in joint, shoulder region 10/20/2011 0 09/04/2016 Disorders of bursae and tend ons in shoulder region, unspecified 10/20/2011 09/04/2016 Lumbago 10/02/2011 09/04/2016 documented as of this encounter (statuses as of 01/21/2022) [facility] History of Past illness Narrative* Problem Noted Date Resolved Date Lateral epicondylitis of elbow 06/19/2013 0 09/04/2016 Chest pain 09/22/2012 07/06/2020 Numbness and tingling 09/22/2012 09/04/2016 Diabetes mellitus 03/25/2012 07/06/2020 Pain in joint, shoulder region 10/20/2011 0 09/04/2016 Disorders of bursae and tend ons in shoulder region, unspecified 10/20/2011 09/04/2016 Lumbago 10/02/2011 09/04/2016 documented as of this encounter (statuses as of 01/22/2022) [facility] History of Past illness Narrative* Problem Noted Date Resolved Date Lateral epicondylitis of elbow 06/19/2013 0 09/04/2016 Chest pain 09/22/2012 07/06/2020 Numbness and tingling 09/22/2012 09/04/2016 Diabetes mellitus 03/25/2012 07/06/2020 Pain in joint, shoulder region 10/20/2011 0 09/04/2016 Disorders of bursae and tend ons in shoulder region, unspecified 10/20/2011 09/04/2016 Lumbago 10/02/2011 09/04/2016 documented as of this encounter (statuses as of 02/09/2022) [facility] History of Past illness Narrative* Problem Noted Date Resolved Date Lateral epicondylitis of elbow 06/19/2013 0 09/04/2016 Chest pain 09/22/2012 07/06/2020 Numbness and tingling 09/22/2012 09/04/2016 Diabetes mellitus 03/25/2012 07/06/2020 Pain in joint, shoulder region 10/20/2011 0 09/04/2016 Disorders of bursae and tend ons in shoulder region, unspecified 10/20/2011 09/04/2016 Lumbago 10/02/2011 09/04/2016 documented as of this encounter (statuses as of 02/13/2022) [facility] History of Past illness Narrative* Problem Noted Date Resolved Date Lateral epicondylitis of elbow 06/19/2013 0 09/04/2016 Chest pain 09/22/2012 07/06/2020 Numbness and tingling 09/22/2012 09/04/2016 Diabetes mellitus 03/25/2012 07/06/2020 Pain in joint, shoulder region 10/20/2011 0 09/04/2016 Disorders of bursae and tend ons in shoulder region, unspecified 10/20/2011 09/04/2016 Lumbago 10/02/2011 09/04/2016 documented as of this encounter (statuses as of 02/19/2022) [facility] History of Past illness Narrative* Problem Noted Date Resolved Date Lateral epicondylitis of elbow 06/19/2013 0 09/04/2016 Chest pain 09/22/2012 07/06/2020 Numbness and tingling 09/22/2012 09/04/2016 Diabetes mellitus 03/25/2012 07/06/2020 Pain in joint, shoulder region 10/20/2011 0 09/04/2016 Disorders of bursae and tend ons in shoulder region, unspecified 10/20/2011 09/04/2016 Lumbago 10/02/2011 09/04/2016 documented as of this encounter (statuses as of 03/03/2022) [facility] History of Past illness Narrative* Problem Noted Date Resolved Date Lateral epicondylitis of elbow 06/19/2013 0 09/04/2016 Chest pain 09/22/2012 07/06/2020 Numbness and tingling 09/22/2012 09/04/2016 Diabetes mellitus 03/25/2012 07/06/2020 Pain in joint, shoulder region 10/20/2011 0 09/04/2016 Disorders of bursae and tend ons in shoulder region, unspecified 10/20/2011 09/04/2016 Lumbago 10/02/2011 09/04/2016 documented as of this encounter (statuses as of 03/04/2022) [facility] History of Past illness Narrative* Problem Noted Date Resolved Date Lateral epicondylitis of elbow 06/19/2013 0 09/04/2016 Chest pain 09/22/2012 07/06/2020 Numbness and tingling 09/22/2012 09/04/2016 Diabetes mellitus 03/25/2012 07/06/2020 Pain in joint, shoulder region 10/20/2011 0 09/04/2016 Disorders of bursae and tend ons in shoulder region, unspecified 10/20/2011 09/04/2016 Lumbago 10/02/2011 09/04/2016 documented as of this encounter (statuses as of 03/20/2022) [facility] History of Past illness Narrative* Problem Noted Date Resolved Date Lateral epicondylitis of elbow 06/19/2013 0 09/04/2016 Chest pain 09/22/2012 07/06/2020 Numbness and tingling 09/22/2012 09/04/2016 Diabetes mellitus 03/25/2012 07/06/2020 Pain in joint, shoulder region 10/20/2011 0 09/04/2016 Disorders of bursae and tend ons in shoulder region, unspecified 10/20/2011 09/04/2016 Lumbago 10/02/2011 09/04/2016 documented as of this encounter (statuses as of 03/20/2022) [facility] History of Past illness Narrative* Problem Noted Date Resolved Date Lateral epicondylitis of elbow 06/19/2013 0 09/04/2016 Chest pain 09/22/2012 07/06/2020 Numbness and tingling 09/22/2012 09/04/2016 Diabetes mellitus 03/25/2012 07/06/2020 Pain in joint, shoulder region 10/20/2011 0 09/04/2016 Disorders of bursae and tend ons in shoulder region, unspecified 10/20/2011 09/04/2016 Lumbago 10/02/2011 09/04/2016 documented as of this encounter (statuses as of 03/24/2022) [facility] History of Past illness Narrative* Problem Noted Date Resolved Date Lateral epicondylitis of elbow 06/19/2013 0 09/04/2016 Chest pain 09/22/2012 07/06/2020 Numbness and tingling 09/22/2012 09/04/2016 Diabetes mellitus 03/25/2012 07/06/2020 Pain in joint, shoulder region 10/20/2011 0 09/04/2016 Disorders of bursae and tend ons in shoulder region, unspecified 10/20/2011 09/04/2016 Lumbago 10/02/2011 09/04/2016 documented as of this encounter (statuses as of 03/30/2022) [facility] History of Past illness Narrative* Problem Noted Date Resolved Date Lateral epicondylitis of elbow 06/19/2013 0 09/04/2016 Chest pain 09/22/2012 07/06/2020 Numbness and tingling 09/22/2012 09/04/2016 Diabetes mellitus 03/25/2012 07/06/2020 Pain in joint, shoulder region 10/20/2011 0 09/04/2016 Disorders of bursae and tend ons in shoulder region, unspecified 10/20/2011 09/04/2016 Lumbago 10/02/2011 09/04/2016 documented as of this encounter (statuses as of 03/30/2022) [facility] History of Past illness Narrative* Problem Noted Date Resolved Date Lateral epicondylitis of elbow 06/19/2013 0 09/04/2016 Chest pain 09/22/2012 07/06/2020 Numbness and tingling 09/22/2012 09/04/2016 Diabetes mellitus 03/25/2012 07/06/2020 Pain in joint, shoulder region 10/20/2011 0 09/04/2016 Disorders of bursae and tend ons in shoulder region, unspecified 10/20/2011 09/04/2016 Lumbago 10/02/2011 09/04/2016 documented as of this encounter (statuses as of 04/06/2022) [facility] History of Past illness Narrative* Problem Noted Date Resolved Date Lateral epicondylitis of elbow 06/19/2013 0 09/04/2016 Chest pain 09/22/2012 07/06/2020 Numbness and tingling 09/22/2012 09/04/2016 Diabetes mellitus 03/25/2012 07/06/2020 Pain in joint, shoulder region 10/20/2011 0 09/04/2016 Disorders of bursae and tend ons in shoulder region, unspecified 10/20/2011 09/04/2016 Lumbago 10/02/2011 09/04/2016 documented as of this encounter (statuses as of 04/09/2022) [facility] History of Past illness Narrative* Problem Noted Date Resolved Date Lateral epicondylitis of elbow 06/19/2013 0 09/04/2016 Chest pain 09/22/2012 07/06/2020 Numbness and tingling 09/22/2012 09/04/2016 Diabetes mellitus 03/25/2012 07/06/2020 Pain in joint, shoulder region 10/20/2011 0 09/04/2016 Disorders of bursae and tend ons in shoulder region, unspecified 10/20/2011 09/04/2016 Lumbago 10/02/2011 09/04/2016 documented as of this encounter (statuses as of 04/29/2022) [facility] History of Past illness Narrative* Problem Noted Date Resolved Date Lateral epicondylitis of elbow 06/19/2013 0 09/04/2016 Chest pain 09/22/2012 07/06/2020 Numbness and tingling 09/22/2012 09/04/2016 Diabetes mellitus 03/25/2012 07/06/2020 Pain in joint, shoulder region 10/20/2011 0 09/04/2016 Disorders of bursae and tend ons in shoulder region, unspecified 10/20/2011 09/04/2016 Lumbago 10/02/2011 09/04/2016 documented as of this encounter (statuses as of 05/26/2022) [facility] History of Past illness Narrative* Problem Noted Date Resolved Date Lateral epicondylitis of elbow 06/19/2013 0 09/04/2016 Chest pain 09/22/2012 07/06/2020 Numbness and tingling 09/22/2012 09/04/2016 Diabetes mellitus 03/25/2012 07/06/2020 Pain in joint, shoulder region 10/20/2011 0 09/04/2016 Disorders of bursae and tend ons in shoulder region, unspecified 10/20/2011 09/04/2016 Lumbago 10/02/2011 09/04/2016 documented as of this encounter (statuses as of 06/13/2022) [facility] History of Past illness Narrative* Problem Noted Date Resolved Date Lateral epicondylitis of elbow 06/19/2013 0 09/04/2016 Chest pain 09/22/2012 07/06/2020 Numbness and tingling 09/22/2012 09/04/2016 Diabetes mellitus 03/25/2012 07/06/2020 Pain in joint, shoulder region 10/20/2011 0 09/04/2016 Disorders of bursae and tend ons in shoulder region, unspecified 10/20/2011 09/04/2016 Lumbago 10/02/2011 09/04/2016 documented as of this encounter (statuses as of 06/16/2022) [facility] History of Past illness Narrative* Problem Noted Date Resolved Date Lateral epicondylitis of elbow 06/19/2013 0 09/04/2016 Chest pain 09/22/2012 07/06/2020 Numbness and tingling 09/22/2012 09/04/2016 Diabetes mellitus 03/25/2012 07/06/2020 Pain in joint, shoulder region 10/20/2011 0 09/04/2016 Disorders of bursae and tend ons in shoulder region, unspecified 10/20/2011 09/04/2016 Lumbago 10/02/2011 09/04/2016 documented as of this encounter (statuses as of 06/22/2022) [facility] History of Past illness Narrative* Problem Noted Date Resolved Date Lateral epicondylitis of elbow 06/19/2013 0 09/04/2016 Chest pain 09/22/2012 07/06/2020 Numbness and tingling 09/22/2012 09/04/2016 Diabetes mellitus 03/25/2012 07/06/2020 Pain in joint, shoulder region 10/20/2011 0 09/04/2016 Disorders of bursae and tend ons in shoulder region, unspecified 10/20/2011 09/04/2016 Lumbago 10/02/2011 09/04/2016 documented as of this encounter (statuses as of 07/02/2022) [facility] History of Past illness Narrative* Problem Noted Date Resolved Date Lateral epicondylitis of elbow 06/19/2013 0 09/04/2016 Chest pain 09/22/2012 07/06/2020 Numbness and tingling 09/22/2012 09/04/2016 Diabetes mellitus 03/25/2012 07/06/2020 Pain in joint, shoulder region 10/20/2011 0 09/04/2016 Disorders of bursae and tend ons in shoulder region, unspecified 10/20/2011 09/04/2016 Lumbago 10/02/2011 09/04/2016 documented as of this encounter (statuses as of 07/27/2022) [facility] History of Past illness Narrative* Problem Noted Date Resolved Date Lateral epicondylitis of elbow 06/19/2013 0 09/04/2016 Chest pain 09/22/2012 07/06/2020 Numbness and tingling 09/22/2012 09/04/2016 Diabetes mellitus 03/25/2012 07/06/2020 Pain in joint, shoulder region 10/20/2011 0 09/04/2016 Disorders of bursae and tend ons in shoulder region, unspecified 10/20/2011 09/04/2016 Lumbago 10/02/2011 09/04/2016 documented as of this encounter (statuses as of 08/07/2022) [facility] History of Past illness Narrative* Problem Noted Date Resolved Date Lateral epicondylitis of elbow 06/19/2013 0 09/04/2016 Chest pain 09/22/2012 07/06/2020 Numbness and tingling 09/22/2012 09/04/2016 Diabetes mellitus 03/25/2012 07/06/2020 Pain in joint, shoulder region 10/20/2011 0 09/04/2016 Disorders of bursae and tend ons in shoulder region, unspecified 10/20/2011 09/04/2016 Lumbago 10/02/2011 09/04/2016 documented as of this encounter (statuses as of 08/11/2022) [facility] History of Past illness Narrative* Problem Noted Date Resolved Date Lateral epicondylitis of elbow 06/19/2013 0 09/04/2016 Chest pain 09/22/2012 07/06/2020 Numbness and tingling 09/22/2012 09/04/2016 Diabetes mellitus 03/25/2012 07/06/2020 Pain in joint, shoulder region 10/20/2011 0 09/04/2016 Disorders of bursae and tend ons in shoulder region, unspecified 10/20/2011 09/04/2016 Lumbago 10/02/2011 09/04/2016 documented as of this encounter (statuses as of 08/18/2022) [facility] History of Past illness Narrative* Problem Noted Date Resolved Date Lateral epicondylitis of elbow 06/19/2013 0 09/04/2016 Chest pain 09/22/2012 07/06/2020 Numbness and tingling 09/22/2012 09/04/2016 Diabetes mellitus 03/25/2012 07/06/2020 Pain in joint, shoulder region 10/20/2011 0 09/04/2016 Disorders of bursae and tend ons in shoulder region, unspecified 10/20/2011 09/04/2016 Lumbago 10/02/2011 09/04/2016 documented as of this encounter (statuses as of 08/28/2022) [facility] History of Past illness Narrative* Problem Noted Date Resolved Date Lateral epicondylitis of elbow 06/19/2013 0 09/04/2016 Chest pain 09/22/2012 07/06/2020 Numbness and tingling 09/22/2012 09/04/2016 Diabetes mellitus 03/25/2012 07/06/2020 Pain in joint, shoulder region 10/20/2011 0 09/04/2016 Disorders of bursae and tend ons in shoulder region, unspecified 10/20/2011 09/04/2016 Lumbago 10/02/2011 09/04/2016 documented as of this encounter (statuses as of 10/02/2022) [facility] History of Past illness Narrative* Problem Noted Date Resolved Date Lateral epicondylitis of elbow 06/19/2013 0 09/04/2016 Chest pain 09/22/2012 07/06/2020 Numbness and tingling 09/22/2012 09/04/2016 Diabetes mellitus 03/25/2012 07/06/2020 Pain in joint, shoulder region 10/20/2011 0 09/04/2016 Disorders of bursae and tend ons in shoulder region, unspecified 10/20/2011 09/04/2016 Lumbago 10/02/2011 09/04/2016 documented as of this encounter (statuses as of 10/05/2022) [facility] History of Past illness Narrative* Problem Noted Date Resolved Date Lateral epicondylitis of elbow 06/19/2013 0 09/04/2016 Chest pain 09/22/2012 07/06/2020 Numbness and tingling 09/22/2012 09/04/2016 Diabetes mellitus 03/25/2012 07/06/2020 Pain in joint, shoulder region 10/20/2011 0 09/04/2016 Disorders of bursae and tend ons in shoulder region, unspecified 10/20/2011 09/04/2016 Lumbago 10/02/2011 09/04/2016 documented as of this encounter (statuses as of 10/13/2022) [facility] History of Past illness Narrative* Problem Noted Date Resolved Date Lateral epicondylitis of elbow 06/19/2013 0 09/04/2016 Chest pain 09/22/2012 07/06/2020 Numbness and tingling 09/22/2012 09/04/2016 Diabetes mellitus 03/25/2012 07/06/2020 Pain in joint, shoulder region 10/20/2011 0 09/04/2016 Disorders of bursae and tend ons in shoulder region, unspecified 10/20/2011 09/04/2016 Lumbago 10/02/2011 09/04/2016 documented as of this encounter (statuses as of 12/04/2022) [facility] History of Past illness Narrative* Problem Noted Date Resolved Date Lateral epicondylitis of elbow 06/19/2013 0 09/04/2016 Chest pain 09/22/2012 07/06/2020 Numbness and tingling 09/22/2012 09/04/2016 Diabetes mellitus 03/25/2012 07/06/2020 Pain in joint, shoulder region 10/20/2011 0 09/04/2016 Disorders of bursae and tend ons in shoulder region, unspecified 10/20/2011 09/04/2016 Lumbago 10/02/2011 09/04/2016 documented as of this encounter (statuses as of 12/12/2022) [facility] History of Past illness Narrative* Problem Noted Date Diagnosed Date Resolved Date Lateral epicondylitis of elbow 06/19/2013 09/04/2016 Chest pain 09/22/2012 07/06/2020 Numbness and tingling 09/22/20122016 Diabetes mellitus 03/25/2012 07/06/2020 Pain in joint, shoulder region 10/20/2011 09/04/2016 Disorders of bursae and tend ons in shoulder region, unspecified 10/20/2011 09/04/2016 Lumbago 10/02/2011 09/04/2016 documented as of this encounter (statuses as of 01/18/2023) [facility] History of Past illness Narrative* Problem Noted Date Diagnosed Date Resolved Date Lateral epicondylitis of elbow 06/19/2013 09/04/2016 Chest pain 09/22/2012 07/06/2020 Numbness and tingling 09/22/20122016 Diabetes mellitus 03/25/2012 07/06/2020 Pain in joint, shoulder region 10/20/2011 09/04/2016 Disorders of bursae and tend ons in shoulder region, unspecified 10/20/2011 09/04/2016 Lumbago 10/02/2011 09/04/2016 documented as of this encounter (statuses as of 02/03/2023) [facility] History of Past illness Narrative* Problem Noted Date Diagnosed Date Resolved Date Lateral epicondylitis of elbow 06/19/2013 09/04/2016 Chest pain 09/22/2012 07/06/2020 Numbness and tingling 09/22/20122016 Diabetes mellitus 03/25/2012 07/06/2020 Pain in joint, shoulder region 10/20/2011 09/04/2016 Disorders of bursae and tend ons in shoulder region, unspecified 10/20/2011 09/04/2016 Lumbago 10/02/2011 09/04/2016 documented as of this encounter (statuses as of 02/09/2023) [facility] History of Past illness Narrative* Problem Noted Date Diagnosed Date Resolved Date Lateral epicondylitis of elbow 06/19/2013 09/04/2016 Chest pain 09/22/2012 07/06/2020 Numbness and tingling 09/22/20122016 Diabetes mellitus 03/25/2012 07/06/2020 Pain in joint, shoulder region 10/20/2011 09/04/2016 Disorders of bursae and tend ons in shoulder region, unspecified 10/20/2011 09/04/2016 Lumbago 10/02/2011 09/04/2016 documented as of this encounter (statuses as of 03/31/2023) [facility] History of Past illness Narrative* Problem Noted Date Diagnosed Date Resolved Date Lateral epicondylitis of elbow 06/19/2013 09/04/2016 Chest pain 09/22/2012 07/06/2020 Numbness and tingling 09/22/20122016 Diabetes mellitus 03/25/2012 07/06/2020 Pain in joint, shoulder region 10/20/2011 09/04/2016 Disorders of bursae and tend ons in shoulder region, unspecified 10/20/2011 09/04/2016 Lumbago 10/02/2011 09/04/2016 documented as of this encounter (statuses as of 04/08/2023) [facility] History of Past illness Narrative* Problem Noted Date Diagnosed Date Resolved Date Lateral epicondylitis of elbow 06/19/2013 09/04/2016 Chest pain 09/22/2012 07/06/2020 Numbness and tingling 09/22/20122016 Diabetes mellitus 03/25/2012 07/06/2020 Pain in joint, shoulder region 10/20/2011 09/04/2016 Disorders of bursae and tend ons in shoulder region, unspecified 10/20/2011 09/04/2016 Lumbago 10/02/2011 09/04/2016 documented as of this encounter (statuses as of 04/08/2023) [facility] History of Past illness Narrative* Problem Noted Date Diagnosed Date Resolved Date Lateral epicondylitis of elbow 06/19/2013 09/04/2016 Chest pain 09/22/2012 07/06/2020 Numbness and tingling 09/22/20122016 Diabetes mellitus 03/25/2012 07/06/2020 Pain in joint, shoulder region 10/20/2011 09/04/2016 Disorders of bursae and tend ons in shoulder region, unspecified 10/20/2011 09/04/2016 Lumbago 10/02/2011 09/04/2016 documented as of this encounter (statuses as of 04/26/2023) [facility] History of Past illness Narrative* Problem Noted Date Diagnosed Date Resolved Date Lateral epicondylitis of elbow 06/19/2013 09/04/2016 Chest pain 09/22/2012 07/06/2020 Numbness and tingling 09/22/20122016 Diabetes mellitus 03/25/2012 07/06/2020 Pain in joint, shoulder region 10/20/2011 09/04/2016 Disorders of bursae and tend ons in shoulder region, unspecified 10/20/2011 09/04/2016 Lumbago 10/02/2011 09/04/2016 documented as of this encounter (statuses as of 04/26/2023) [facility] History of Past illness Narrative* Problem Noted Date Diagnosed Date Resolved Date Lateral epicondylitis of elbow 06/19/2013 09/04/2016 Chest pain 09/22/2012 07/06/2020 Numbness and tingling 09/22/20122016 Diabetes mellitus 03/25/2012 07/06/2020 Pain in joint, shoulder region 10/20/2011 09/04/2016 Disorders of bursae and tend ons in shoulder region, unspecified 10/20/2011 09/04/2016 Lumbago 10/02/2011 09/04/2016 documented as of this encounter (statuses as of 04/26/2023) [facility] History of Past illness Narrative* Problem Noted Date Diagnosed Date Resolved Date Lateral epicondylitis of elbow 06/19/2013 09/04/2016 Chest pain 09/22/2012 07/06/2020 Numbness and tingling 09/22/20122016 Diabetes mellitus 03/25/2012 07/06/2020 Pain in joint, shoulder region 10/20/2011 09/04/2016 Disorders of bursae and tend ons in shoulder region, unspecified 10/20/2011 09/04/2016 Lumbago 10/02/2011 09/04/2016 documented as of this encounter (statuses as of 05/06/2023) [facility] History of Past illness Narrative* Problem Noted Date Diagnosed Date Resolved Date Lateral epicondylitis of elbow 06/19/2013 09/04/2016 Chest pain 09/22/2012 07/06/2020 Numbness and tingling 09/22/20122016 Diabetes mellitus 03/25/2012 07/06/2020 Pain in joint, shoulder region 10/20/2011 09/04/2016 Disorders of bursae and tend ons in shoulder region, unspecified 10/20/2011 09/04/2016 Lumbago 10/02/2011 09/04/2016 documented as of this encounter (statuses as of 05/06/2023) [facility] History of Past illness Narrative* Problem Noted Date Diagnosed Date Resolved Date Lateral epicondylitis of elbow 06/19/2013 09/04/2016 Chest pain 09/22/2012 07/06/2020 Numbness and tingling 09/22/20122016 Diabetes mellitus 03/25/2012 07/06/2020 Pain in joint, shoulder region 10/20/2011 09/04/2016 Disorders of bursae and tend ons in shoulder region, unspecified 10/20/2011 09/04/2016 Lumbago 10/02/2011 09/04/2016 documented as of this encounter (statuses as of 2023) [facility] History of Past illness Narrative* Problem Noted Date Diagnosed Date Resolved Date Lateral epicondylitis of elbow 06/19/2013 09/04/2016 Chest pain 09/22/2012 07/06/2020 Numbness and tingling 09/22/20122016 Diabetes mellitus 03/25/2012 07/06/2020 Pain in joint, shoulder region 10/20/2011 09/04/2016 Disorders of bursae and tend ons in shoulder region, unspecified 10/20/2011 09/04/2016 Lumbago 10/02/2011 09/04/2016 documented as of this encounter (statuses as of 06/11/2023) [facility] History of Past illness Narrative* Problem Noted Date Diagnosed Date Resolved Date Lateral epicondylitis of elbow 06/19/2013 09/04/2016 Chest pain 09/22/2012 07/06/2020 Numbness and tingling 09/22/20122016 Diabetes mellitus 03/25/2012 07/06/2020 Pain in joint, shoulder region 10/20/2011 09/04/2016 Disorders of bursae and tend ons in shoulder region, unspecified 10/20/2011 09/04/2016 Lumbago 10/02/2011 09/04/2016 documented as of this encounter (statuses as of 08/13/2023) [facility] History of Past illness Narrative* Problem Noted Date Diagnosed Date Resolved Date Lateral epicondylitis of elbow 06/19/2013 09/04/2016 Chest pain 09/22/2012 07/06/2020 Numbness and tingling 09/22/20122016 Diabetes mellitus 03/25/2012 07/06/2020 Pain in joint, shoulder region 10/20/2011 09/04/2016 Disorders of bursae and tend ons in shoulder region, unspecified 10/20/2011 09/04/2016 Lumbago 10/02/2011 09/04/2016 documented as of this encounter (statuses as of 08/18/2023) [facility] History of Past illness Narrative* Problem Noted Date Diagnosed Date Resolved Date Lateral epicondylitis of elbow 06/19/2013 09/04/2016 Chest pain 09/22/2012 07/06/2020 Numbness and tingling 09/22/20122016 Diabetes mellitus 03/25/2012 07/06/2020 Pain in joint, shoulder region 10/20/2011 09/04/2016 Disorders of bursae and tend ons in shoulder region, unspecified 10/20/2011 09/04/2016 Lumbago 10/02/2011 09/04/2016 documented as of this encounter (statuses as of 08/18/2023) [facility] History of Past illness Narrative* Problem Noted Date Diagnosed Date Resolved Date Lateral epicondylitis of elbow 06/19/2013 09/04/2016 Chest pain 09/22/2012 07/06/2020 Numbness and tingling 09/22/20122016 Diabetes mellitus 03/25/2012 07/06/2020 Pain in joint, shoulder region 10/20/2011 09/04/2016 Disorders of bursae and tend ons in shoulder region, unspecified 10/20/2011 09/04/2016 Lumbago 10/02/2011 09/04/2016 documented as of this encounter (statuses as of 08/18/2023) [facility] History of Past illness Narrative* Problem Noted Date Diagnosed Date Resolved Date Lateral epicondylitis of elbow 06/19/2013 09/04/2016 Chest pain 09/22/2012 07/06/2020 Numbness and tingling 09/22/20122016 Diabetes mellitus 03/25/2012 07/06/2020 Pain in joint, shoulder region 10/20/2011 09/04/2016 Disorders of bursae and tend ons in shoulder region, unspecified 10/20/2011 09/04/2016 Lumbago 10/02/2011 09/04/2016 documented as of this encounter (statuses as of 08/20/2023) [facility] History of Past illness Narrative* Problem Noted Date Diagnosed Date Resolved Date Lateral epicondylitis of elbow 06/19/2013 09/04/2016 Chest pain 09/22/2012 07/06/2020 Numbness and tingling 09/22/20122016 Diabetes mellitus 03/25/2012 07/06/2020 Pain in joint, shoulder region 10/20/2011 09/04/2016 Disorders of bursae and tend ons in shoulder region, unspecified 10/20/2011 09/04/2016 Lumbago 10/02/2011 09/04/2016 documented as of this encounter (statuses as of 08/30/2023) [facility] History of Past illness Narrative* Problem Noted Date Diagnosed Date Resolved Date Lateral epicondylitis of elbow 06/19/2013 09/04/2016 Chest pain 09/22/2012 07/06/2020 Numbness and tingling 09/22/20122016 Diabetes mellitus 03/25/2012 07/06/2020 Pain in joint, shoulder region 10/20/2011 09/04/2016 Disorders of bursae and tend ons in shoulder region, unspecified 10/20/2011 09/04/2016 Lumbago 10/02/2011 09/04/2016 documented as of this encounter (statuses as of 09/10/2023) [facility] History of Past illness Narrative* Problem Noted Date Diagnosed Date Resolved Date Lateral epicondylitis of elbow 06/19/2013 09/04/2016 Chest pain 09/22/2012 07/06/2020 Numbness and tingling 09/22/20122016 Diabetes mellitus 03/25/2012 07/06/2020 Pain in joint, shoulder region 10/20/2011 09/04/2016 Disorders of bursae and tend ons in shoulder region, unspecified 10/20/2011 09/04/2016 Lumbago 10/02/2011 09/04/2016 documented as of this encounter (statuses as of 09/15/2023) [facility] History of Past illness Narrative* Problem Noted Date Diagnosed Date Resolved Date Lateral epicondylitis of elbow 06/19/2013 09/04/2016 Chest pain 09/22/2012 07/06/2020 Numbness and tingling 09/22/20122016 Diabetes mellitus 03/25/2012 07/06/2020 Pain in joint, shoulder region 10/20/2011 09/04/2016 Disorders of bursae and tend ons in shoulder region, unspecified 10/20/2011 09/04/2016 Lumbago 10/02/2011 09/04/2016 documented as of this encounter (statuses as of 09/15/2023) [facility] History of Past illness Narrative* Problem Noted Date Diagnosed Date Resolved Date Lateral epicondylitis of elbow 06/19/2013 09/04/2016 Chest pain 09/22/2012 07/06/2020 Numbness and tingling 09/22/20122016 Diabetes mellitus 03/25/2012 07/06/2020 Pain in joint, shoulder region 10/20/2011 09/04/2016 Disorders of bursae and tend ons in shoulder region, unspecified 10/20/2011 09/04/2016 Lumbago 10/02/2011 09/04/2016 documented as of this encounter (statuses as of 09/23/2023) [facility] History of Past illness Narrative* Problem Noted Date Diagnosed Date Resolved Date Lateral epicondylitis of elbow 06/19/2013 09/04/2016 Chest pain 09/22/2012 07/06/2020 Numbness and tingling 09/22/20122016 Diabetes mellitus 03/25/2012 07/06/2020 Pain in joint, shoulder region 10/20/2011 09/04/2016 Disorders of bursae and tend ons in shoulder region, unspecified 10/20/2011 09/04/2016 Lumbago 10/02/2011 09/04/2016 documented as of this encounter (statuses as of 09/27/2023) [facility] History of Past illness Narrative* Problem Noted Date Diagnosed Date Resolved Date Lateral epicondylitis of elbow 06/19/2013 09/04/2016 Chest pain 09/22/2012 07/06/2020 Numbness and tingling 09/22/20122016 Diabetes mellitus 03/25/2012 07/06/2020 Pain in joint, shoulder region 10/20/2011 09/04/2016 Disorders of bursae and tend ons in shoulder region, unspecified 10/20/2011 09/04/2016 Lumbago 10/02/2011 09/04/2016 documented as of this encounter (statuses as of 09/29/2023) [facility] Diagnosis Controlled type 2 diabetes mellitus without complication, without long-term current use of insulin (HCC) [facility] Diagnosis Controlled type 2 diabetes mellitus without complication, without long-term current use of insulin (HCC) Mixed hyperlipidemia [facility] Diagnosis Multinodular goiter Nontoxic multinodular goiter [facility] Diagnosis Multinodular goiter Nontoxic multinodular goiter [facility] Diagnosis Anxiety Anxiety state, unspecified [facility] Diagnosis Dizziness- Primary Dizziness and giddiness Controlled type 2 diabetes mellitus without complication, without long-term current use of insulin (HCC) Angular cheilitis Diseases of lips Mixed hyperlipidemia Multiple thyroid nodules Nontoxic multinodular goiter [facility] Diagnosis Chronic renal failure, stage 3b (HCC)- Primary Hypercalcemia [facility] Diagnosis Hypotension, unspecified hypotension type- Primary Stage 3b chronic kidney disease (HCC) Shortness of breath Mixed hyperlipidemia 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 (HCC) [facility] Diagnosis Stage 3b chronic kidney disease (HCC) [facility] Diagnosis DDD (degenerative disc disease), lumbar Degeneration of lumbar or lumbosacral intervertebral disc Spinal stenosis of lumbar region with neurogenic claudication Spinal stenosis, lumbar region, with neurogenic claudication Spondylolisthesis of lumbar region Acquired spondylolisthesis Radiculopathy, lumbar region Thoracic or lumbosacral neuritis or radiculitis, unspecified [facility] Diagnosis Shortness of breath 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 (HCC) [facility] Diagnosis Hypotension, unspecified hypotension type- Primary [facility] Diagnosis 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 (HCC)- Primary [facility] Diagnosis Vitamin D deficiency- Primary Unspecified vitamin D deficiency [facility] Diagnosis Near syncope- Primary Syncope and collapse [facility] Diagnosis DDD (degenerative disc disease), lumbar Degeneration of lumbar or lumbosacral intervertebral disc Spinal stenosis of lumbar region with neurogenic claudication Spinal stenosis, lumbar region, with neurogenic claudication Spondylolisthesis of lumbar region Acquired spondylolisthesis Radiculopathy, lumbar region Thoracic or lumbosacral neuritis or radiculitis, unspecified [facility] Diagnosis DDD (degenerative disc disease), cervical- Primary Degeneration of cervical intervertebral disc DDD (degenerative disc disease), lumbar Degeneration of lumbar or lumbosacral intervertebral disc Spinal stenosis of lumbar region with neurogenic claudication Spinal stenosis, lumbar region, with neurogenic claudication Spondylolisthesis of lumbar region Acquired spondylolisthesis Radiculopathy, lumbar region Thoracic or lumbosacral neuritis or radiculitis, unspecified [facility] Diagnosis DDD (degenerative disc disease), lumbar- Primary Degeneration of lumbar or lumbosacral intervertebral disc Spinal stenosis of lumbar region with neurogenic claudication Spinal stenosis, lumbar region, with neurogenic claudication Spondylolisthesis of lumbar region Acquired spondylolisthesis Radiculopathy, lumbar region Thoracic or lumbosacral neuritis or radiculitis, unspecified DDD (degenerative disc disease), cervical Degeneration of cervical intervertebral disc [facility] Diagnosis Coronary artery disease involving [place] coronary artery of [place] heart without angina pectoris- Primary 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 ([facility]) Stage 3b chronic kidney disease (HCC) Primary hypertension Unspecified essential hypertension Mixed hyperlipidemia Controlled type 2 diabetes mellitus without complication, without long-term current use of insulin ([facility]) SVT (supraventricular tachycardia) ([facility]) Other specified cardiac dysrhythmias Tobacco abuse Tobacco use disorder [facility] Diagnosis Mixed hyperlipidemia Controlled type 2 diabetes mellitus without complication, without long-term current use of insulin ([facility]) Anxiety Anxiety state, unspecified Shortness of breath [facility] Diagnosis Screening for ischemic heart disease- Primary [facility] Diagnosis Anxiety Anxiety state, unspecified [facility] Diagnosis Encounter for screening mammogram for breast cancer [facility] Diagnosis DDD (degenerative disc disease), lumbar Degeneration of lumbar or lumbosacral intervertebral disc Spinal stenosis of lumbar region with neurogenic claudication Spinal stenosis, lumbar region, with neurogenic claudication Spondylolisthesis of lumbar region Acquired spondylolisthesis Radiculopathy, lumbar region Thoracic or lumbosacral neuritis or radiculitis, unspecified [facility]* Diagnosis Wellness examination- Primary 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 (HCC) Controlled type 2 diabetes mellitus without complication, without long-term current use of insulin (HCC) Mixed hyperlipidemia Anxiety Anxiety state, unspecified Spinal stenosis of lumbar region with neurogenic claudication Spinal stenosis, lumbar region, with neurogenic claudication Radiculopathy, lumbar region Thoracic or lumbosacral neuritis or radiculitis, unspecified Spondylolisthesis of lumbar region Acquired spondylolisthesis DDD (degenerative disc disease), lumbar Degeneration of lumbar or lumbosacral intervertebral disc Carpal tunnel syndrome, bilateral Carpal tunnel syndrome Wheezing Encounter for immunization Need for other specified prophylactic vaccination against single bacterial disease Screening for cervical cancer Screening for malignant neoplasm of the cervix Screening for colon cancer Special screening for malignant neoplasms, colon Asymptomatic postmenopausal status Encounter for screening mammogram for malignant neoplasm of breast Other screening mammogram [facility] Diagnosis Mixed hyperlipidemia Anxiety Anxiety state, unspecified Wheezing [facility] Diagnosis Encounter for screening mammogram for malignant neoplasm of breast Other screening mammogram [facility] Diagnosis Disorder of bone- Primary Disorder of bone and cartilage, unspecified [facility] Diagnosis Vitamin D deficiency Unspecified vitamin D deficiency Shortness of breath [facility] Diagnosis DDD (degenerative disc disease), lumbar Degeneration of lumbar or lumbosacral intervertebral disc Spinal stenosis of lumbar region with neurogenic claudication Spinal stenosis, lumbar region, with neurogenic claudication Spondylolisthesis of lumbar region Acquired spondylolisthesis Radiculopathy, lumbar region Thoracic or lumbosacral neuritis or radiculitis, unspecified [facility] Encounter for gynecological examination (general) (routine) without abnormal findings- Primary Screening for cervical cancer Screening for malignant neoplasm of the cervix Encounter for screening for human papillomavirus (HPV) Special screening examination for human papillomavirus (HPV) Pap smear for cervical cancer screening Screening for malignant neoplasm of the cervix Encounter for screening mammogram for breast cancer [facility] Diagnosis 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 ([facility])- Primary Controlled type 2 diabetes mellitus without complication, without long-term current use of insulin ([facility]) Shortness of breath Essential (primary) hypertension Unspecified essential hypertension DDD (degenerative disc disease), lumbar Degeneration of lumbar or lumbosacral intervertebral disc Anxiety Anxiety state, unspecified Radiculopathy, lumbar region Thoracic or lumbosacral neuritis or radiculitis, unspecified Renal insufficiency Unspecified disorder of kidney and ureter Gastroesophageal reflux disease without esophagitis Esophageal reflux Swelling of right hand [facility] Diagnosis Dizziness Dizziness and giddiness [facility] Diagnosis DDD (degenerative disc disease), lumbar Degeneration of lumbar or lumbosacral intervertebral disc Spinal stenosis of lumbar region with neurogenic claudication Spinal stenosis, lumbar region, with neurogenic claudication Spondylolisthesis of lumbar region Acquired spondylolisthesis Radiculopathy, lumbar region Thoracic or lumbosacral neuritis or radiculitis, unspecified [facility] Diagnosis Medication management- Primary Encounter for long-term (current) use of other medications [facility] Diagnosis Dizziness Dizziness and giddiness [facility] Diagnosis Neck pain- Primary Cervicalgia Wheezing Renal insufficiency Unspecified disorder of kidney and ureter Hypercalcemia Gastroesophageal reflux disease without esophagitis Esophageal reflux [facility] Diagnosis Hypercalcemia- Primary [facility] Diagnosis CKD (chronic kidney disease) stage 4, GFR 15-29 ml/min ([facility])- Primary Chronic kidney disease, Stage IV (severe) Renal insufficiency Unspecified disorder of kidney and ureter [facility] Diagnosis DDD (degenerative disc disease), lumbar Degeneration of lumbar or lumbosacral intervertebral disc Spinal stenosis of lumbar region with neurogenic claudication Spinal stenosis, lumbar region, with neurogenic claudication Spondylolisthesis of lumbar region Acquired spondylolisthesis Radiculopathy, lumbar region Thoracic or lumbosacral neuritis or radiculitis, unspecified [facility] Diagnosis 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 (HCC)- Primary Gastroesophageal reflux disease without esophagitis Esophageal reflux Essential (primary) hypertension Unspecified essential hypertension Mixed hyperlipidemia Controlled type 2 diabetes mellitus without complication, without long-term current use of insulin ([facility]) Anxiety Anxiety state, unspecified Screening for depression Chronic renal disease, stage IV ([facility]) Chronic kidney disease, Stage IV (severe) Hypercalcemia Medial epicondylitis of left elbow Medial epicondylitis of elbow [facility] Diagnosis Renal insufficiency Unspecified disorder of kidney and ureter CKD (chronic kidney disease) stage 4, GFR 15-29 ml/min ([facility]) Chronic kidney disease, Stage IV (severe) [facility] Diagnosis Type 2 diabetes mellitus with stage 3b chronic kidney disease, without long-term current use of insulin ([facility])- Primary [facility] Diagnosis DDD (degenerative disc disease), lumbar Degeneration of lumbar or lumbosacral intervertebral disc Spinal stenosis of lumbar region with neurogenic claudication Spinal stenosis, lumbar region, with neurogenic claudication Spondylolisthesis of lumbar region Acquired spondylolisthesis Radiculopathy, lumbar region Thoracic or lumbosacral neuritis or radiculitis, unspecified [facility] Diagnosis Swelling of right hand [facility] Diagnosis DDD (degenerative disc disease), cervical Degeneration of cervical intervertebral disc Screening for ischemic heart disease- Primary Primary hypertension Unspecified essential hypertension 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 (HCC) Mixed hyperlipidemia [facility] Diagnosis Screening for ischemic heart disease- Primary Primary hypertension Unspecified essential hypertension 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 (HCC) Mixed hyperlipidemia [facility] Diagnosis Right wrist pain Pain in joint, forearm Wrist pain, left Pain in joint, forearm [facility]* Diagnosis Dizziness Dizziness and giddiness [facility] Diagnosis Wheezing [facility] Diagnosis Mixed hyperlipidemia Disorder of bone Disorder of bone and cartilage, unspecified Vitamin D deficiency Unspecified vitamin D deficiency Anxiety Anxiety state, unspecified [facility] Diagnosis Degeneration of intervertebral disc of lumbar region with discogenic back pain- Primary Spinal stenosis of lumbar region with neurogenic claudication Spinal stenosis, lumbar region, with neurogenic claudication Spondylolisthesis of lumbar region Acquired spondylolisthesis Radiculopathy, lumbar region Thoracic or lumbosacral neuritis or radiculitis, unspecified [facility] Diagnosis Viral URI- Primary Acute upper respiratory infections of unspecified site Acute cough Chest congestion Other symptoms involving respiratory system and chest Acute cough Chest congestion Other symptoms involving respiratory system and chest [facility] Diagnosis Acute cough Chest congestion Other symptoms involving respiratory system and chest [facility] Diagnosis 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 (HCC)- Primary Shortness of breath Dizziness Dizziness and giddiness Controlled type 2 diabetes mellitus without complication, without long-term current use of insulin (HCC) Mixed hyperlipidemia Essential (primary) hypertension Unspecified essential hypertension Chronic renal disease, stage IV (HCC) Chronic kidney disease, Stage IV (severe) Anxiety Anxiety state, unspecified Spinal stenosis of lumbar region with neurogenic claudication Spinal stenosis, lumbar region, with neurogenic claudication Pain in both hands Trigger middle finger of right hand Trigger finger (acquired) Gastroesophageal reflux disease without esophagitis Esophageal reflux Screening for colon cancer Special screening for malignant neoplasms, colon Angular cheilitis Diseases of lips Onychomycosis Dermatophytosis of nail Bunion Callus Corns and callosities [facility] Diagnosis Pain in both hands Trigger middle finger of right hand Trigger finger (acquired) [facility] Diagnosis Poorly controlled diabetes mellitus (HCC)- Primary Type II or unspecified type diabetes mellitus without mention of complication, not stated as uncontrolled Mixed hyperlipidemia [facility] Diagnosis Gastroesophageal reflux disease, unspecified whether esophagitis present- Primary Wheezing Stenosis of carotid artery, unspecified laterality Thyroid fullness Other specified disorders of thyroid [facility] Diagnosis Diabetes mellitus type 1, controlled, without complications (HCC)- Primary Type I (juvenile type) diabetes mellitus without mention of complication, not stated as uncontrolled Diabetes mellitus type 2 (HCC) Controlled type 2 diabetes mellitus without complication, without long-term current use of insulin (HCC) [facility]* Diagnosis Onychomycosis Dermatophytosis of nail Bunion Callus Corns and callosities [facility]* Diagnosis Primary hypertension- Primary Unspecified essential hypertension Coronary artery disease, unspecified vessel or lesion type, unspecified whether angina present, unspecified whether [place] or transplanted heart [facility]* Diagnosis Degeneration of intervertebral disc of lumbar region with discogenic back pain- Primary Spondylolisthesis of lumbar region Acquired spondylolisthesis Radiculopathy, lumbar region Thoracic or lumbosacral neuritis or radiculitis, unspecified Spinal stenosis of lumbar region with neurogenic claudication Spinal stenosis, lumbar region, with neurogenic claudication [facility]* Diagnosis Pain in both hands Trigger middle finger of right hand Trigger finger (acquired) [facility]* Diagnosis Diabetes mellitus type 2 (HCC) [facility]* Diagnosis Thyroid fullness Other specified disorders of thyroid [facility]* Diagnosis Enlarged thyroid- Primary Goiter, unspecified Poorly controlled diabetes mellitus (HCC) Type II or unspecified type diabetes mellitus without mention of complication, not stated as uncontrolled Mixed hyperlipidemia [facility]* Diagnosis Allergic contact dermatitis, unspecified trigger- Primary [facility]* Diagnosis Diabetes mellitus type 2 (HCC)- Primary [facility]* Diagnosis Degeneration of intervertebral disc of lumbar region with discogenic back pain- Primary Spondylolisthesis of lumbar region Acquired spondylolisthesis Radiculopathy, lumbar region Thoracic or lumbosacral neuritis or radiculitis, unspecified Spinal stenosis of lumbar region with neurogenic claudication Spinal stenosis, lumbar region, with neurogenic claudication [facility]* Diagnosis Wheezing Dizziness Dizziness and giddiness [facility]* Diagnosis Diabetes mellitus type 2 (HCC)- Primary Diabetes mellitus type 1, controlled, without complications (HCC) Type I (juvenile type) diabetes mellitus without mention of complication, not stated as uncontrolled documented in this encounter [facility]* Diagnosis Onychomycosis- Primary Dermatophytosis of nail Type 2 diabetes mellitus with diabetic peripheral angiopathy without gangrene, with long-term current use of insulin (HCC) documented in this encounter [facility]* Diagnosis Controlled type 2 diabetes mellitus without complication, without long-term current use of insulin (HCC) documented in this encounter [facility]* Diagnosis Controlled type 2 diabetes mellitus without complication, without long-term current use of insulin (HCC) documented in this encounter [facility]* Diagnosis Viral URI with cough- Primary Acute upper respiratory infections of unspecified site Headache, unspecified headache type Rash Rash and other nonspecific skin eruption documented in this encounter [facility]* Diagnosis Controlled type 2 diabetes mellitus without complication, without long-term current use of insulin (HCC) documented in this encounter [facility] for referral (narrative)* Outpatient Procedure (Routine) - Pending Review Specialty Diagnoses / Procedures Referred By Vance becerra Referred To Contact [facility] Diagnoses Dizziness Procedures ECG COMPLETE ECG ROUTINE ECG W/LEAST 12 LDS W/I&R Sakshi Li APRN.STAVE SAW OPERATOR [address] [place] [address] [facility] [address] [address] Referral ID Status Reason Start Date Expiration Date Visits Requested Visits Authorized [id number] Pending Review Auto-Generat ed Referral 02/13/2022 02/13/2023 1 1 * Outpatient Procedure (Routine) - Authorized Specialty Diagnoses / Procedures Referred By Contac t Referred To Contact [facility] Diagnoses Dizziness Procedures US CAROTID ARTERIES ZBIGNIEW VAS LAB DUPLEX SCAN EXTRACRANIAL ART COMPL BI STUDY Sakshi Li APRN.STAVE SAW OPERATOR [address] [place] [address] [facility] [address] [place] [address] Referral ID Status Reason Start Date Expiration Date Visits Requested Visits Authorized [id number] Authorized Auto-Generat ed Referral 02/13/2022 02/13/2023 1 1 [facility] for referral (narrative)* Diagnostic Procedure Only (Routine) - Closed Specialty Diagnoses / Procedures Referred By Contac t Referred To Contact US IMAG[facility] Diagnoses Stage 3b chronic kidney disease (HCC) Procedures US KIDNEY/BLADDER US RETROPERITONEAL REAL TIME W/IMAGE COMPLETE Sakshi Li APRN.STAVE SAW OPERATOR [address] [place] [address] [facility] Referral ID Status Reason Start Date Expiration Date V isits Requested Visits Authorized [id number] Closed Auto-Generate d Referral 03/02/2022 04/01/2023 1 1 [facility] for referral (narrative)* Diagnostic Procedure Only (Routine) - Pending Review Specialty Diagnoses / Procedures Referred By Contac t Referred To Contact [facility]CULAR [facility] Diagnoses 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 (HCC) Procedures NM CARDIAC PERF STRESS/PHARM MYOCARDIAL SPECT MULTIPLE STUDIES Sakshi Li APRN.STAVE SAW OPERATOR [address] [place] [address] [facility] [address] [place] [address] Referral ID Status Reason Start Date Expiration Date Visits Requested Visits Authorized [id number] Pending Review Auto-Generat ed Referral 03/25/2022 04/24/2023 1 1 [facility] for referral (narrative)* Diagnostic Procedure Only (Routine) - Closed Specialty Diagnoses / Procedures Referred By Contac t Referred To Contact XR IMAGING Diagnoses DDD (degenerative disc disease), cervical Procedures XR CERV OTHER 4V AP/LAT/OBL RADEX SPINE CERVICAL 4 OR 5 VIEWS Barbara Bran OXYGEN THERAPIST.STAVE SAW OPERATOR [address] [place] [address] Xr Imaging Referral ID Status Reason Start Date Expiration Date V isits Requested Visits Authorized [id number] Closed Auto-Generate d Referral 06/09/2022 07/09/2023 1 1 [facility] for referral (narrative)* Diagnostic Procedure Only (Routine) - Pending Review Specialty Diagnoses / Procedures Referred By Contac t Referred To Contact BR IMAGING Diagnoses Encounter for screening mammogram for breast cancer Procedures LATRELL SCREENING SCREENING MAMMOGRAPHY BI 2-VIEW BREAST INC CAD Garrett Ventura MD [address] [place] [address] [facility] [address] [place] [address] Referral ID Status Reason Start Date Expiration Date Visits Requested Visits Authorized [id number] Pending Review Auto-Generat ed Referral 01/13/2023 02/12/2024 1 1 [facility] for referral (narrative)* Diagnostic Procedure Only (Routine) - Authorized Specialty Diagnoses / Procedures Referred By Contac t Referred To Contact BR IM[facility] Diagnoses Encounter for screening mammogram for malignant neoplasm of breast Procedures LATRELL SCREENING SCREENING MAMMOGRAPHY BI 2-VIEW BREAST INC Davian Dowling PA-C [address] [place] [address] [facility] [address] [place] [address] Referral ID Status Reason Start Date Expiration Date Visits Requested Visits Authorized [id number] Authorized Auto-Generat ed Referral 02/08/2023 03/09/2024 1 1 * Consult, Test, Treat (Routine) - Authorized Specialty Diagnoses / Procedures Referred By Contac t Referred To Contact Gynecology Diagnoses Screening for cervical cancer Procedures CONSULT TO GYNECOLOGY OFFICE/OUTPATIENT NEW HIGH MDM 60-74 MINUTES Davian Stone PA-C [address] [place] [address] Referral ID Status Reason Start Date Expiration Date Visits Requested Visits Authorized [id number] Authorized PCP Requested Referral Auto-Generate d Referral 02/08/2023 02/08/2024 1 1 [facility] for referral (narrative)* Diagnostic Procedure Only (Routine) - Closed Specialty Diagnoses / Procedures Referred By Contac t Referred To Contact BR IM[facility] Diagnoses Encounter for screening mammogram for malignant neoplasm of breast Procedures LATRELL SCREENING SCREENING MAMMOGRAPHY BI 2-VIEW BREAST INC CAD Davian Stone PA-C [address] [place] [address] [facility] [address] [place] [address] Referral ID Status Reason Start Date Expiration Date V isits Requested Visits Authorized [id number] Closed Auto-Generate d Referral 02/08/2023 03/09/2024 1 1 [facility] for referral (narrative)* Diagnostic Procedure Only (Routine) - Authorized Specialty Diagnoses / Procedures Referred By Contac t Referred To Contact BR IM[facility] Diagnoses Encounter for screening mammogram for breast cancer Procedures LATRELL SCREENING SCREENING MAMMOGRAPHY BI 2-VIEW BREAST INC CAD Lani Sheth APRN.CNP [address] [place] [address] [facility] [address] [place] [address] Referral ID Status Reason Start Date Expiration Date Visits Requested Visits Authorized [id number] Authorized Auto-Generat ed Referral 07/09/2024 1 1 [facility] for referral (narrative)* Diagnostic Procedure Only (Routine) - Closed Specialty Diagnoses / Procedures Referred By Contac t Referred To Contact XR IMAGING Diagnoses Swelling of right hand Procedures XR HAND GENERAL 3V PA/LAT/OBL RIGHT RADEX HAND MINIMUM 3 VIEWS Garrett Ventura MD [address] [place] [address] [place] [address] Referral ID Status Reason Start Date Expiration Date V isits Requested Visits Authorized [id number] Closed Auto-Generate d Referral 08/13/2023 09/11/2024 1 1 * Consult, Test, Treat (Routine) - Authorized Specialty Diagnoses / Procedures Referred By Contac t Referred To Contact Cardiology Diagnoses 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 (HCC) Procedures CONSULT TO CARDIOLOGY OFFICE/OUTPATIENT [facility] 60 MINUTES Garrett Ventura MD [address] [place] [address] Referral ID Status Reason Start Date Expiration Date Visits Requested Visits Authorized [id number] Authorized PCP Requested Referral 08/13/2023 08/12/2024 1 1 * Medication Prior Authorization - Pending Review Specialty Diagnoses / Procedures Referred By Vance t Referred To Contact Garrett Ventura MD [address] [place] [address] Referral ID Status Reason Start Date Expiration Date V isits Requested Visits Authorized [id number] Pending Review 1 1 [facility] for referral (narrative)* Diagnostic Procedure Only (Routine) - Pending Review Specialty Diagnoses / Procedures Referred By Vance t Referred To Contact US IMAGING Diagnoses Renal insufficiency CKD (chronic kidney disease) stage 4, GFR 15-29 ml/min ([facility]) Procedures US KIDNEY/BLADDER US RETROPERITONEAL REAL TIME W/IMAGE COMPLETE Garrett Ventura MD [address] [place] [address] [place] [address] Referral ID Status Reason Start Date Expiration Date Visits Requested Visits Authorized [id number] Pending Review Auto-Generat ed Referral 09/23/2023 10/22/2024 1 1 * Consult, Test, Treat (Routine) - Authorized Specialty Diagnoses / Procedures Referred By Contac t Referred To Contact Nephrology Diagnoses Renal insufficiency CKD (chronic kidney disease) stage 4, GFR 15-29 ml/min ([facility]) Procedures CONSULT TO NEPHROLOGY OFFICE/OUTPATIENT [facility] HIGH MDM 60 MINUTES Garrett Ventura MD [address] [place] [address] Referral ID Status Reason Start Date Expiration Date Visits Requested Visits Authorized [id number] Authorized PCP Requested Referral 09/23/2023 09/22/2024 1 1 [facility] for referral (narrative)* Diagnostic Procedure Only (Routine) - Closed Specialty Diagnoses / Procedures Referred By Contac t Referred To Contact XR IMAGING Diagnoses Swelling of right hand Procedures XR HAND GENERAL 3V PA/LAT/OBL RIGHT RADEX HAND MINIMUM 3 VIEWS Garrett Ventura MD [address] [place] [address] [place] [address] Referral ID Status Reason Start Date Expiration Date V isits Requested Visits Authorized [id number] Closed Auto-Generate d Referral 08/13/2023 09/11/2024 1 1 [facility] for referral (narrative)* Diagnostic Procedure Only (Routine) - Closed Specialty Diagnoses / Procedures Referred By Contac t Referred To Contact XR IMAGING Diagnoses DDD (degenerative disc disease), cervical Procedures XR CERV OTHER 4V AP/LAT/OBL RADEX SPINE CERVICAL 4 OR 5 VIEWS Barbara Bran, YIN.STAVE SAW OPERATOR [address] [place] [address] [place] [address] Referral ID Status Reason Start Date Expiration Date V isits Requested Visits Authorized [id number] Closed Auto-Generate d Referral 06/09/2022 07/09/2023 1 1 [facility] for referral (narrative)* Outpatient Procedure (Routine) - New Request Specialty Diagnoses / Procedures Referred By Contac t Referred To Contact [facility] Diagnoses Screening for ischemic heart disease Primary hypertension 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 (HCC) Mixed hyperlipidemia Procedures ECG COMPLETE ECG ROUTINE ECG W/LEAST 12 LDS W/I&R Tracy Sauer MD [address] [place] [address] [facility] [address] [place] [address] Referral ID Status Reason Start Date Expiration Date Visits Requested Visits Authorized [id number] New Request Auto-Generat ed Referral 03/20/2024 03/14/2025 1 1 [facility] for referral (narrative)* Diagnostic Procedure Only (Routine) - New Request Specialty Diagnoses / Procedures Referred By Contac t Referred To Contact [facility] Diagnoses Encounter for screening mammogram for breast cancer Procedures LATRELL SCREENING W FELIZ SCREENING DIGITAL BREAST TOMOSYNTHESIS BI SCREENING MAMMOGRAPHY BI 2-VIEW BREAST INC CAD Garrett Ventura MD [address] [place] [address] [facility] [address] [place] [address] Referral ID Status Reason Start Date Expiration Date Visits Requested Visits Authorized [id number] New Request Auto-Generat ed Referral 07/14/2025 1 1 [facility] for visit Narrative* Diagnostic Procedure Only (Routine) - Closed Specialty Diagnoses / Procedures Referred By Contac t Referred To Contact Cardiology / [facility] Diagnoses Shortness of breath Atherosclerotic heart disease of [place] coronary artery with unspecified angina pectoris ex stress stress w ecg r06.02 i25.119 [facility] Procedures CV STRS TST XERS&/OR RX CONT ECG W/SI&R STRESS TEST Sakshi Li APRN.STAVE SAW OPERATOR [address] [place] [address] [facility] [address] [place] [address] Referral ID Status Reason Start Date Expiration Date Visits Re quested Visits Authorized [id number] Closed 03/16/2022 06/20/2022 1 1 [facility] for visit Narrative* Diagnostic Procedure Only (Routine) - Closed Specialty Diagnoses / Procedures Referred By Contac t Referred To Contact [facility] Diagnoses 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 (HCC) Procedures NM CARDIAC PERF STRESS/PHARM MYOCARDIAL SPECT MULTIPLE STUDIES Sakshi Li, OXYGEN THERAPIST.STAVE SAW OPERATOR [address] [place] [address] [facility] [address] [place] [address] Referral ID Status Reason Start Date Expiration Date V isits Requested Visits Authorized [id number] Closed Auto-Generate d Referral 03/25/2022 04/24/2023 1 1 [facility] for visit Narrative* Diagnostic Procedure Only (Routine) - Closed Specialty Diagnoses / Procedures Referred By Contac t Referred To Contact [facility] IM[facility] Diagnoses Encounter for screening mammogram for malignant neoplasm of breast Procedures LATRELL SCREENING SCREENING MAMMOGRAPHY BI 2-VIEW BREAST INC CAD Davian Stone PA-C [address] [place] [address] [facility] [address] [place] [address] Referral ID Status Reason Start Date Expiration Date V isits Requested Visits Authorized [id number] Closed Auto-Generate d Referral 02/08/2023 03/09/2024 1 1 [facility] for visit Narrative* Diagnostic Procedure Only (Routine) - Closed Specialty Diagnoses / Procedures Referred By Contac t Referred To Contact XR IMAGING Diagnoses Swelling of right hand Procedures XR HAND GENERAL 3V PA/LAT/OBL RIGHT RADEX HAND MINIMUM 3 VIEWS Garrett Ventura MD [address] [place] [address] [place] [address] Referral ID Status Reason Start Date Expiration Date V isits Requested Visits Authorized [id number] Closed Auto-Generate d Referral 08/13/2023 09/11/2024 1 1 [facility] for visit Narrative* Diagnostic Procedure Only (Routine) - Closed Specialty Diagnoses / Procedures Referred By Contac t Referred To Contact XR IMAGING Diagnoses DDD (degenerative disc disease), cervical Procedures XR CERV OTHER 4V AP/LAT/OBL RADEX SPINE CERVICAL 4 OR 5 VIEWS Barbara Bran, OXYGEN THERAPIST.STAVE SAW OPERATOR [address] [place] [address] [place] [address] Referral ID Status Reason Start Date Expiration Date V isits Requested Visits Authorized [id number] Closed Auto-Generate d Referral 06/09/2022 07/09/2023 1 1 [facility] for visit Narrative* Diagnostic Procedure Only (Routine) - Closed Specialty Diagnoses / Procedures Referred By Contac t Referred To Contact XR IMAGING Diagnoses Pain in both hands Trigger middle finger of right hand Procedures XR HAND GENERAL 3V PA/LAT/OBL BILATERAL RADEX HAND MINIMUM 3 VIEWS Garrett Ventura MD [address] [place] [address] Phone: tel: fax: [place] [address] Referral ID Status Reason Start Date Expiration Date V isits Requested Visits Authorized [id number] Closed Auto-Generate d Referral 08/02/2024 09/01/2025 1 1 [facility] for visit Narrative* Consult, Test, Treat (Routine) - Closed Specialty Diagnoses / Procedures Referred By Contac t Referred To Contact Diagnoses Diabetes mellitus type 2 (HCC) Procedures CONSULT TO DIABETES EDUCATION DSME MEDICAL NUTRITION ASSMT&IVNTJ INDIV EACH 15 [place] MEDICAL NUTRITION ASSMT&IVNTJ INDIV EACH 15 [place] MEDICAL NUTRITION ASSMT&IVNTJ INDIV EACH 15 [place] MEDICAL NUTRITION ASSMT&IVNTJ INDIV EACH 15 [place] Daksha Anton MD [address] [place] [address] Phone: tel: fax: Referral ID Status Reason Start Date Expiration Date V isits Requested Visits Authorized [id number] Closed PCP Requested Referral 09/15/2024 09/15/2025 1 1 [facility] for visit Narrative* Diagnostic Procedure Only (Routine) - Closed Specialty Diagnoses / Procedures Referred By Vance t Referred To Contact US IMAGING Diagnoses Thyroid fullness Procedures US THYROID/PARATHYROID US SOFT TISSUE HEAD & NECK REAL TIME IMGE DOCM Sakshi Li, OXYGEN THERAPIST.STAVE SAW OPERATOR [address] [place] [address] Phone: tel: fax: [place] [address] Referral ID Status Reason Start Date Expiration Date V isits Requested Visits Authorized [id number] Closed Auto-Generate d Referral 08/30/2024 09/29/2025 1 1 [facility] Summary Purpose Family History No Family History Records FoundNo Family History Records FoundNo Family History Records FoundNo Family History Records FoundNo Family History Records FoundNo Family History Records Found Advance Directives No Advanced Directives Records FoundDocuments on File Type Date Recorded Patient Facility Planner Expl anation Advance Directive(s) 06/20/2019 2:45 PM Advance Directive(s) 09/21/2017 6:54 AM Advance Directive(s) 11/23/2016 8:45 AM Advance Directive(s) 11/02/2016 8:16 AM Advance Directive(s) 09/18/2016 11:15 AM Advance Directive(s) 09/09/2016 9:03 AM Documents on File Type Date Recorded Patient Facility Planner Expl anation Advance Directive(s) 06/20/2019 2:45 PM Advance Directive(s) 09/21/2017 6:54 AM Advance Directive(s) 11/23/2016 8:45 AM Advance Directive(s) 11/02/2016 8:16 AM Advance Directive(s) 09/18/2016 11:15 AM Advance Directive(s) 09/09/2016 9:03 AM Reason for Referral Specialty Diagnoses / Procedures Referred By Vance t Referred To Contact Diagnoses Multinodular goiter Procedures CONSULT TO ENDOCRINE SURGERY OFFICE/OUTPATIENT [facility] 60-74 MINUTES Concepcion Betancur MD [address] [place] [address] Referral ID Status Reason Start Date Expiration Date V isits Requested Visits Authorized [id number] Closed PCP Requested Referral 08/28/2021 08/28/2022 1 1 Specialty Diagnoses / Procedures Referred By Vance becerra Referred To Contact Concepcion Betancur MD [address] [place] [address] Referral ID Status Reason Start Date Expiration Date Visits Re quested Visits Authorized [id number] Closed 1 1 Specialty Diagnoses / Procedures Referred By Contac t Referred To Contact Cardiology Diagnoses Stage 3b chronic kidney disease (HCC) 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 (HCC) Procedures CONSULT TO CARDIOLOGY OFFICE/OUTPATIENT [facility] 60-74 MINUTES Sakshi Li, OXYGEN THERAPIST.STAVE SAW OPERATOR [address] [place] [address] Referral ID Status Reason Start Date Expiration Date Visits Requested Visits Authorized [id number] Authorized PCP Requested Referral 03/02/2022 03/02/2023 1 1 Specialty Diagnoses / Procedures Referred By Contac t Referred To Contact US IMAGING Diagnoses Stage 3b chronic kidney disease (HCC) Procedures US KIDNEY/BLADDER US RETROPERITONEAL REAL TIME W/IMAGE COMPLETE Sakshi Li, OXYGEN THERAPIST.STAVE SAW OPERATOR [address] [place] [address] Us Imaging Referral ID Status Reason Start Date Expiration Date Visits Requested Visits Authorized [id number] Authorized Auto-Generat ed Referral 03/02/2022 04/01/2023 1 1 Specialty Diagnoses / Procedures Referred By Contac t Referred To Contact Cardiology Diagnoses Near syncope Procedures CONSULT TO CARDIOLOGY OFFICE/OUTPATIENT [facility] 60-74 MINUTES Sakshi Li, OXYGEN THERAPIST.STAVE SAW OPERATOR [address] [place] [address] Referral ID Status Reason Start Date Expiration Date Visits Requested Visits Authorized [id number] Authorized PCP Requested Referral 04/29/2022 04/29/2023 1 1 Specialty Diagnoses / Procedures Referred By Contac t Referred To Contact [facility] Diagnoses DDD (degenerative disc disease), cervical Procedures CONSULT TO PHYSICAL THERAPY PHYSICAL THERAPY EVALUATION HIGH COMPLEX 45 MINS Barbara Bran, OXYGEN THERAPIST.STAVE SAW OPERATOR [address] [place] [address] [facility] [address] [place] [address] Referral ID Status Reason Start Date Expiration Date Visits Requested Visits Authorized [id number] Pending Review Auto-Generat ed Referral 06/26/2022 06/26/2023 1 1 Specialty Diagnoses / Procedures Referred By Contac t Referred To Contact Garrett Ventura MD [address] [place] [address] Referral ID Status Reason Start Date Expiration Date Visits Re quested Visits Authorized [id number] Closed 1 1 Specialty Diagnoses / Procedures Referred By Contac t Referred To Contact Rabia Lewis APRN.PULMONARY FELLOW [address] [place] [address] Referral ID Status Reason Start Date Expiration Date Visits Re quested Visits Authorized [id number] Closed 1 1 Health Concerns Infection Onset Date Last Indicated Resolved Time COVID-19 Rule-Out 06/12/2022 06/12/2022 06/13/2022 2:18 PM EST Additional Source Comments INFORMATION SOURCE (unrecogn ized section and content) DATE CREATED AUTHOR 12/09/2017 [facility] DATE CREATED AUTHOR AUTHOR'S ORGANIZ ATION 12/09/2017 [facility] DATE CREATED AUTHOR AUTHOR'S ORGANIZ ATION 12/11/2021 [facility] DATE CREATED AUTHOR AUTHOR'S ORGANIZ ATION 06/13/2022 [facility] DATE CREATED AUTHOR AUTHOR'S ORGANIZ ATION 10[facility]21/2023 [facility] DATE CREATED AUTHOR AUTHOR'S ORGANIZ ATION 04/30/2025 [facility] Source Comments (unrecognize d section and content) In the event this informatio n is protected by the Federal Confidentiality of Alcohol and Drug Abuse Patient Records regulations: The Federal rules restrict any use of the information to criminally investigate or prosecute any alcohol or drug abuse patient.[facility] the event this information is protected by the Federal Confidentiality of Alcohol and Drug Abuse Patient Records regulations: The Federal rules restrict any use of the information to criminally investigate or prosecute any alcohol or drug abuse patient.[facility] the event this information is protected by the Federal Confidentiality of Alcohol and Drug Abuse Patient Records regulations: The Federal rules restrict any use of the information to criminally investigate or prosecute any alcohol or drug abuse patient.[facility] the event this information is protected by the Federal Confidentiality of Alcohol and Drug Abuse Patient Records regulations: The Federal rules restrict any use of the information to criminally investigate or prosecute any alcohol or drug abuse patient.[facility] the event this information is protected by the Federal Confidentiality of Alcohol and Drug Abuse Patient Records regulations: The Federal rules restrict any use of the information to criminally investigate or prosecute any alcohol or drug abuse patient.[facility] the event this information is protected by the Federal Confidentiality of Alcohol and Drug Abuse Patient Records regulations: The Federal rules restrict any use of the information to criminally investigate or prosecute any alcohol or drug abuse patient.[facility] the event this information is protected by the Federal Confidentiality of Alcohol and Drug Abuse Patient Records regulations: The Federal rules restrict any use of the information to criminally investigate or prosecute any alcohol or drug abuse patient.[facility] the event this information is protected by the Federal Confidentiality of Alcohol and Drug Abuse Patient Records regulations: The Federal rules restrict any use of the information to criminally investigate or prosecute any alcohol or drug abuse patient.[facility] the event this information is protected by the Federal Confidentiality of Alcohol and Drug Abuse Patient Records regulations: The Federal rules restrict any use of the information to criminally investigate or prosecute any alcohol or drug abuse patient.[facility] the event this information is protected by the Federal Confidentiality of Alcohol and Drug Abuse Patient Records regulations: The Federal rules restrict any use of the information to criminally investigate or prosecute any alcohol or drug abuse patient.[facility]In the event this information is protected by the Federal Confidentiality of Alcohol and Drug Abuse Patient Records regulations: The Federal rules restrict any use of the information to criminally investigate or prosecute any alcohol or drug abuse patient.[facility] the event this information is protected by the Federal Confidentiality of Alcohol and Drug Abuse Patient Records regulations: The Federal rules restrict any use of the information to criminally investigate or prosecute any alcohol or drug abuse patient.[facility] the event this information is protected by the Federal Confidentiality of Alcohol and Drug Abuse Patient Records regulations: The Federal rules restrict any use of the information to criminally investigate or prosecute any alcohol or drug abuse patient.[facility] the event this information is protected by the Federal Confidentiality of Alcohol and Drug Abuse Patient Records regulations: The Federal rules restrict any use of the information to criminally investigate or prosecute any alcohol or drug abuse patient.[facility]In the event this information is protected by the Federal Confidentiality of Alcohol and Drug Abuse Patient Records regulations: The Federal rules restrict any use of the information to criminally investigate or prosecute any alcohol or drug abuse patient.[facility]In the event this information is protected by the Federal Confidentiality of Alcohol and Drug Abuse Patient Records regulations: The Federal rules restrict any use of the information to criminally investigate or prosecute any alcohol or drug abuse patient.[facility]In the event this information is protected by the Federal Confidentiality of Alcohol and Drug Abuse Patient Records regulations: The Federal rules restrict any use of the information to criminally investigate or prosecute any alcohol or drug abuse patient.[facility]In the event this information is protected by the Federal Confidentiality of Alcohol and Drug Abuse Patient Records regulations: The Federal rules restrict any use of the information to criminally investigate or prosecute any alcohol or drug abuse patient.[facility]In the event this information is protected by the Federal Confidentiality of Alcohol and Drug Abuse Patient Records regulations: The Federal rules restrict any use of the information to criminally investigate or prosecute any alcohol or drug abuse patient.[facility]In the event this information is protected by the Federal Confidentiality of Alcohol and Drug Abuse Patient Records regulations: The Federal rules restrict any use of the information to criminally investigate or prosecute any alcohol or drug abuse patient.[facility]In the event this information is protected by the Federal Confidentiality of Alcohol and Drug Abuse Patient Records regulations: The Federal rules restrict any use of the information to criminally investigate or prosecute any alcohol or drug abuse patient.[facility]In the event this information is protected by the Federal Confidentiality of Alcohol and Drug Abuse Patient Records regulations: The Federal rules restrict any use of the information to criminally investigate or prosecute any alcohol or drug abuse patient.[facility]In the event this information is protected by the Federal Confidentiality of Alcohol and Drug Abuse Patient Records regulations: The Federal rules restrict any use of the information to criminally investigate or prosecute any alcohol or drug abuse patient.[facility]In the event this information is protected by the Federal Confidentiality of Alcohol and Drug Abuse Patient Records regulations: The Federal rules restrict any use of the information to criminally investigate or prosecute any alcohol or drug abuse patient.[facility]In the event this information is protected by the Federal Confidentiality of Alcohol and Drug Abuse Patient Records regulations: The Federal rules restrict any use of the information to criminally investigate or prosecute any alcohol or drug abuse patient.[facility]In the event this information is protected by the Federal Confidentiality of Alcohol and Drug Abuse Patient Records regulations: The Federal rules restrict any use of the information to criminally investigate or prosecute any alcohol or drug abuse patient.[facility]In the event this information is protected by the Federal Confidentiality of Alcohol and Drug Abuse Patient Records regulations: The Federal rules restrict any use of the information to criminally investigate or prosecute any alcohol or drug abuse patient.[facility]In the event this information is protected by the Federal Confidentiality of Alcohol and Drug Abuse Patient Records regulations: The Federal rules restrict any use of the information to criminally investigate or prosecute any alcohol or drug abuse patient.[facility]In the event this information is protected by the Federal Confidentiality of Alcohol and Drug Abuse Patient Records regulations: The Federal rules restrict any use of the information to criminally investigate or prosecute any alcohol or drug abuse patient.[facility]In the event this information is protected by the Federal Confidentiality of Alcohol and Drug Abuse Patient Records regulations: The Federal rules restrict any use of the information to criminally investigate or prosecute any alcohol or drug abuse patient.[facility]In the event this information is protected by the Federal Confidentiality of Alcohol and Drug Abuse Patient Records regulations: The Federal rules restrict any use of the information to criminally investigate or prosecute any alcohol or drug abuse patient.[facility]In the event this information is protected by the Federal Confidentiality of Alcohol and Drug Abuse Patient Records regulations: The Federal rules restrict any use of the information to criminally investigate or prosecute any alcohol or drug abuse patient.[facility]In the event this information is protected by the Federal Confidentiality of Alcohol and Drug Abuse Patient Records regulations: The Federal rules restrict any use of the information to criminally investigate or prosecute any alcohol or drug abuse patient.[facility]In the event this information is protected by the Federal Confidentiality of Alcohol and Drug Abuse Patient Records regulations: The Federal rules restrict any use of the information to criminally investigate or prosecute any alcohol or drug abuse patient.[facility]In the event this information is protected by the Federal Confidentiality of Alcohol and Drug Abuse Patient Records regulations: The Federal rules restrict any use of the information to criminally investigate or prosecute any alcohol or drug abuse patient.[facility]In the event this information is protected by the Federal Confidentiality of Alcohol and Drug Abuse Patient Records regulations: The Federal rules restrict any use of the information to criminally investigate or prosecute any alcohol or drug abuse patient.[facility]In the event this information is protected by the Federal Confidentiality of Alcohol and Drug Abuse Patient Records regulations: The Federal rules restrict any use of the information to criminally investigate or prosecute any alcohol or drug abuse patient.[facility]In the event this information is protected by the Federal Confidentiality of Alcohol and Drug Abuse Patient Records regulations: The Federal rules restrict any use of the information to criminally investigate or prosecute any alcohol or drug abuse patient.[facility]In the event this information is protected by the Federal Confidentiality of Alcohol and Drug Abuse Patient Records regulations: The Federal rules restrict any use of the information to criminally investigate or prosecute any alcohol or drug abuse patient.[facility]In the event this information is protected by the Federal Confidentiality of Alcohol and Drug Abuse Patient Records regulations: The Federal rules restrict any use of the information to criminally investigate or prosecute any alcohol or drug abuse patient.[facility]In the event this information is protected by the Federal Confidentiality of Alcohol and Drug Abuse Patient Records regulations: The Federal rules restrict any use of the information to criminally investigate or prosecute any alcohol or drug abuse patient.[facility]In the event this information is protected by the Federal Confidentiality of Alcohol and Drug Abuse Patient Records regulations: The Federal rules restrict any use of the information to criminally investigate or prosecute any alcohol or drug abuse patient.[facility]In the event this information is protected by the Federal Confidentiality of Alcohol and Drug Abuse Patient Records regulations: The Federal rules restrict any use of the information to criminally investigate or prosecute any alcohol or drug abuse patient.[facility]In the event this information is protected by the Federal Confidentiality of Alcohol and Drug Abuse Patient Records regulations: The Federal rules restrict any use of the information to criminally investigate or prosecute any alcohol or drug abuse patient.[facility]In the event this information is protected by the Federal Confidentiality of Alcohol and Drug Abuse Patient Records regulations: The Federal rules restrict any use of the information to criminally investigate or prosecute any alcohol or drug abuse patient.[facility]In the event this information is protected by the Federal Confidentiality of Alcohol and Drug Abuse Patient Records regulations: The Federal rules restrict any use of the information to criminally investigate or prosecute any alcohol or drug abuse patient.[facility]In the event this information is protected by the Federal Confidentiality of Alcohol and Drug Abuse Patient Records regulations: The Federal rules restrict any use of the information to criminally investigate or prosecute any alcohol or drug abuse patient.[facility]In the event this information is protected by the Federal Confidentiality of Alcohol and Drug Abuse Patient Records regulations: The Federal rules restrict any use of the information to criminally investigate or prosecute any alcohol or drug abuse patient.[facility]In the event this information is protected by the Federal Confidentiality of Alcohol and Drug Abuse Patient Records regulations: The Federal rules restrict any use of the information to criminally investigate or prosecute any alcohol or drug abuse patient.[facility]In the event this information is protected by the Federal Confidentiality of Alcohol and Drug Abuse Patient Records regulations: The Federal rules restrict any use of the information to criminally investigate or prosecute any alcohol or drug abuse patient.[facility]In the event this information is protected by the Federal Confidentiality of Alcohol and Drug Abuse Patient Records regulations: The Federal rules restrict any use of the information to criminally investigate or prosecute any alcohol or drug abuse patient.[facility]In the event this information is protected by the Federal Confidentiality of Alcohol and Drug Abuse Patient Records regulations: The Federal rules restrict any use of the information to criminally investigate or prosecute any alcohol or drug abuse patient.[facility]In the event this information is protected by the Federal Confidentiality of Alcohol and Drug Abuse Patient Records regulations: The Federal rules restrict any use of the information to criminally investigate or prosecute any alcohol or drug abuse patient.[facility]In the event this information is protected by the Federal Confidentiality of Alcohol and Drug Abuse Patient Records regulations: The Federal rules restrict any use of the information to criminally investigate or prosecute any alcohol or drug abuse patient.[facility]In the event this information is protected by the Federal Confidentiality of Alcohol and Drug Abuse Patient Records regulations: The Federal rules restrict any use of the information to criminally investigate or prosecute any alcohol or drug abuse patient.[facility]In the event this information is protected by the Federal Confidentiality of Alcohol and Drug Abuse Patient Records regulations: The Federal rules restrict any use of the information to criminally investigate or prosecute any alcohol or drug abuse patient.[facility]In the event this information is protected by the Federal Confidentiality of Alcohol and Drug Abuse Patient Records regulations: The Federal rules restrict any use of the information to criminally investigate or prosecute any alcohol or drug abuse patient.[facility]In the event this information is protected by the Federal Confidentiality of Alcohol and Drug Abuse Patient Records regulations: The Federal rules restrict any use of the information to criminally investigate or prosecute any alcohol or drug abuse patient.[facility]In the event this information is protected by the Federal Confidentiality of Alcohol and Drug Abuse Patient Records regulations: The Federal rules restrict any use of the information to criminally investigate or prosecute any alcohol or drug abuse patient.[facility]In the event this information is protected by the Federal Confidentiality of Alcohol and Drug Abuse Patient Records regulations: The Federal rules restrict any use of the information to criminally investigate or prosecute any alcohol or drug abuse patient.[facility]In the event this information is protected by the Federal Confidentiality of Alcohol and Drug Abuse Patient Records regulations: The Federal rules restrict any use of the information to criminally investigate or prosecute any alcohol or drug abuse patient.[facility]In the event this information is protected by the Federal Confidentiality of Alcohol and Drug Abuse Patient Records regulations: The Federal rules restrict any use of the information to criminally investigate or prosecute any alcohol or drug abuse patient.[facility]In the event this information is protected by the Federal Confidentiality of Alcohol and Drug Abuse Patient Records regulations: The Federal rules restrict any use of the information to criminally investigate or prosecute any alcohol or drug abuse patient.[facility]In the event this information is protected by the Federal Confidentiality of Alcohol and Drug Abuse Patient Records regulations: The Federal rules restrict any use of the information to criminally investigate or prosecute any alcohol or drug abuse patient.[facility]In the event this information is protected by the Federal Confidentiality of Alcohol and Drug Abuse Patient Records regulations: The Federal rules restrict any use of the information to criminally investigate or prosecute any alcohol or drug abuse patient.[facility]In the event this information is protected by the Federal Confidentiality of Alcohol and Drug Abuse Patient Records regulations: The Federal rules restrict any use of the information to criminally investigate or prosecute any alcohol or drug abuse patient.[facility]In the event this information is protected by the Federal Confidentiality of Alcohol and Drug Abuse Patient Records regulations: The Federal rules restrict any use of the information to criminally investigate or prosecute any alcohol or drug abuse patient.[facility]In the event this information is protected by the Federal Confidentiality of Alcohol and Drug Abuse Patient Records regulations: The Federal rules restrict any use of the information to criminally investigate or prosecute any alcohol or drug abuse patient.[facility]In the event this information is protected by the Federal Confidentiality of Alcohol and Drug Abuse Patient Records regulations: The Federal rules restrict any use of the information to criminally investigate or prosecute any alcohol or drug abuse patient.[facility]In the event this information is protected by the Federal Confidentiality of Alcohol and Drug Abuse Patient Records regulations: The Federal rules restrict any use of the information to criminally investigate or prosecute any alcohol or drug abuse patient.[facility]In the event this information is protected by the Federal Confidentiality of Alcohol and Drug Abuse Patient Records regulations: The Federal rules restrict any use of the information to criminally investigate or prosecute any alcohol or drug abuse patient.[facility]In the event this information is protected by the Federal Confidentiality of Alcohol and Drug Abuse Patient Records regulations: The Federal rules restrict any use of the information to criminally investigate or prosecute any alcohol or drug abuse patient.[facility]In the event this information is protected by the Federal Confidentiality of Alcohol and Drug Abuse Patient Records regulations: The Federal rules restrict any use of the information to criminally investigate or prosecute any alcohol or drug abuse patient.[facility]In the event this information is protected by the Federal Confidentiality of Alcohol and Drug Abuse Patient Records regulations: The Federal rules restrict any use of the information to criminally investigate or prosecute any alcohol or drug abuse patient.[facility]In the event this information is protected by the Federal Confidentiality of Alcohol and Drug Abuse Patient Records regulations: The Federal rules restrict any use of the information to criminally investigate or prosecute any alcohol or drug abuse patient.[facility]In the event this information is protected by the Federal Confidentiality of Alcohol and Drug Abuse Patient Records regulations: The Federal rules restrict any use of the information to criminally investigate or prosecute any alcohol or drug abuse patient.[facility]In the event this information is protected by the Federal Confidentiality of Alcohol and Drug Abuse Patient Records regulations: The Federal rules restrict any use of the information to criminally investigate or prosecute any alcohol or drug abuse patient.[facility]In the event this information is protected by the Federal Confidentiality of Alcohol and Drug Abuse Patient Records regulations: The Federal rules restrict any use of the information to criminally investigate or prosecute any alcohol or drug abuse patient.[facility]In the event this information is protected by the Federal Confidentiality of Alcohol and Drug Abuse Patient Records regulations: The Federal rules restrict any use of the information to criminally investigate or prosecute any alcohol or drug abuse patient.[facility]In the event this information is protected by the Federal Confidentiality of Alcohol and Drug Abuse Patient Records regulations: The Federal rules restrict any use of the information to criminally investigate or prosecute any alcohol or drug abuse patient.[facility]In the event this information is protected by the Federal Confidentiality of Alcohol and Drug Abuse Patient Records regulations: The Federal rules restrict any use of the information to criminally investigate or prosecute any alcohol or drug abuse patient.[facility]In the event this information is protected by the Federal Confidentiality of Alcohol and Drug Abuse Patient Records regulations: The Federal rules restrict any use of the information to criminally investigate or prosecute any alcohol or drug abuse patient.[facility]In the event this information is protected by the Federal Confidentiality of Alcohol and Drug Abuse Patient Records regulations: The Federal rules restrict any use of the information to criminally investigate or prosecute any alcohol or drug abuse patient.[facility]In the event this information is protected by the Federal Confidentiality of Alcohol and Drug Abuse Patient Records regulations: The Federal rules restrict any use of the information to criminally investigate or prosecute any alcohol or drug abuse patient.[facility]In the event this information is protected by the Federal Confidentiality of Alcohol and Drug Abuse Patient Records regulations: The Federal rules restrict any use of the information to criminally investigate or prosecute any alcohol or drug abuse patient.[facility] the event this information is protected by the Federal Confidentiality of Alcohol and Drug Abuse Patient Records regulations: The Federal rules restrict any use of the information to criminally investigate or prosecute any alcohol or drug abuse patient.[facility] the event this information is protected by the Federal Confidentiality of Alcohol and Drug Abuse Patient Records regulations: The Federal rules restrict any use of the information to criminally investigate or prosecute any alcohol or drug abuse patient.[facility] the event this information is protected by the Federal Confidentiality of Alcohol and Drug Abuse Patient Records regulations: The Federal rules restrict any use of the information to criminally investigate or prosecute any alcohol or drug abuse patient.[facility]burgIn the event this information is protected by the Federal Confidentiality of Alcohol and Drug Abuse Patient Records regulations: The Federal rules restrict any use of the information to criminally investigate or prosecute any alcohol or drug abuse patient.[facility]In the event this information is protected by the Federal Confidentiality of Alcohol and Drug Abuse Patient Records regulations: The Federal rules restrict any use of the information to criminally investigate or prosecute any alcohol or drug abuse patient.[facility]burgIn the event this information is protected by the Federal Confidentiality of Alcohol and Drug Abuse Patient Records regulations: The Federal rules restrict any use of the information to criminally investigate or prosecute any alcohol or drug abuse patient.[facility]burgIn the event this information is protected by the Federal Confidentiality of Alcohol and Drug Abuse Patient Records regulations: The Federal rules restrict any use of the information to criminally investigate or prosecute any alcohol or drug abuse patient.[facility]burgIn the event this information is protected by the Federal Confidentiality of Alcohol and Drug Abuse Patient Records regulations: The Federal rules restrict any use of the information to criminally investigate or prosecute any alcohol or drug abuse patient.[facility]In the event this information is protected by the Federal Confidentiality of Alcohol and Drug Abuse Patient Records regulations: The Federal rules restrict any use of the information to criminally investigate or prosecute any alcohol or drug abuse patient.[facility]In the event this information is protected by the Federal Confidentiality of Alcohol and Drug Abuse Patient Records regulations: The Federal rules restrict any use of the information to criminally investigate or prosecute any alcohol or drug abuse patient.[facility]In the event this information is protected by the Federal Confidentiality of Alcohol and Drug Abuse Patient Records regulations: The Federal rules restrict any use of the information to criminally investigate or prosecute any alcohol or drug abuse patient.[facility]In the event this information is protected by the Federal Confidentiality of Alcohol and Drug Abuse Patient Records regulations: The Federal rules restrict any use of the information to criminally investigate or prosecute any alcohol or drug abuse patient.[facility] the event this information is protected by the Federal Confidentiality of Alcohol and Drug Abuse Patient Records regulations: The Federal rules restrict any use of the information to criminally investigate or prosecute any alcohol or drug abuse patient.[facility]In the event this information is protected by the Federal Confidentiality of Alcohol and Drug Abuse Patient Records regulations: The Federal rules restrict any use of the information to criminally investigate or prosecute any alcohol or drug abuse patient.[facility]burgIn the event this information is protected by the Federal Confidentiality of Alcohol and Drug Abuse Patient Records regulations: The Federal rules restrict any use of the information to criminally investigate or prosecute any alcohol or drug abuse patient.[facility]burgIn the event this information is protected by the Federal Confidentiality of Alcohol and Drug Abuse Patient Records regulations: The Federal rules restrict any use of the information to criminally investigate or prosecute any alcohol or drug abuse patient.[facility]In the event this information is protected by the Federal Confidentiality of Alcohol and Drug Abuse Patient Records regulations: The Federal rules restrict any use of the information to criminally investigate or prosecute any alcohol or drug abuse patient.[facility] the event this information is protected by the Federal Confidentiality of Alcohol and Drug Abuse Patient Records regulations: The Federal rules restrict any use of the information to criminally investigate or prosecute any alcohol or drug abuse patient.[facility]In the event this information is protected by the Federal Confidentiality of Alcohol and Drug Abuse Patient Records regulations: The Federal rules restrict any use of the information to criminally investigate or prosecute any alcohol or drug abuse patient.[facility] the event this information is protected by the Federal Confidentiality of Alcohol and Drug Abuse Patient Records regulations: The Federal rules restrict any use of the information to criminally investigate or prosecute any alcohol or drug abuse patient.[facility]In the event this information is protected by the Federal Confidentiality of Alcohol and Drug Abuse Patient Records regulations: The Federal rules restrict any use of the information to criminally investigate or prosecute any alcohol or drug abuse patient.[facility]burgIn the event this information is protected by the Federal Confidentiality of Alcohol and Drug Abuse Patient Records regulations: The Federal rules restrict any use of the information to criminally investigate or prosecute any alcohol or drug abuse patient.[facility]In the event this information is protected by the Federal Confidentiality of Alcohol and Drug Abuse Patient Records regulations: The Federal rules restrict any use of the information to criminally investigate or prosecute any alcohol or drug abuse patient.[facility]burgIn the event this information is protected by the Federal Confidentiality of Alcohol and Drug Abuse Patient Records regulations: The Federal rules restrict any use of the information to criminally investigate or prosecute any alcohol or drug abuse patient.[facility]In the event this information is protected by the Federal Confidentiality of Alcohol and Drug Abuse Patient Records regulations: The Federal rules restrict any use of the information to criminally investigate or prosecute any alcohol or drug abuse patient.[facility]In the event this information is protected by the Federal Confidentiality of Alcohol and Drug Abuse Patient Records regulations: The Federal rules restrict any use of the information to criminally investigate or prosecute any alcohol or drug abuse patient.[facility]In the event this information is protected by the Federal Confidentiality of Alcohol and Drug Abuse Patient Records regulations: The Federal rules restrict any use of the information to criminally investigate or prosecute any alcohol or drug abuse patient.[facility]In the event this information is protected by the Federal Confidentiality of Alcohol and Drug Abuse Patient Records regulations: The Federal rules restrict any use of the information to criminally investigate or prosecute any alcohol or drug abuse patient.[facility]In the event this information is protected by the Federal Confidentiality of Alcohol and Drug Abuse Patient Records regulations: The Federal rules restrict any use of the information to criminally investigate or prosecute any alcohol or drug abuse patient.[facility]In the event this information is protected by the Federal Confidentiality of Alcohol and Drug Abuse Patient Records regulations: The Federal rules restrict any use of the information to criminally investigate or prosecute any alcohol or drug abuse patient.[facility] Reason for Visit (unrecogniz ed section and content) Reason Comments Consult Specialty Diagnoses / Procedures Referred By Contac t Referred To Contact Cardiology Diagnoses Stage 3b chronic kidney disease (HCC) 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 (HCC) Procedures CONSULT TO CARDIOLOGY OFFICE/OUTPATIENT [facility] 60-74 MINUTES Sakshi Li, OXYGEN THERAPIST.STAVE SAW OPERATOR [address] [place] [address] Referral ID Status Reason Start Date Expiration Date V isits Requested Visits Authorized [id number] Closed PCP Requested Referral 03/02/2022 03/02/2023 1 1 Reason Comments Consult facesheet Reason Onset Date Comments Refill Request 10/06/2021 Reason Comments Prescription Refills Reason Comments Refill Request Specialty Diagnoses / Procedures Referred By Contac t Referred To Contact Diagnoses Multinodular goiter Procedures CONSULT TO ENDOCRINE SURGERY OFFICE/OUTPATIENT [facility] 60-74 MINUTES Concepcion Betancur MD [address] [place] [address] Referral ID Status Reason Start Date Expiration Date V isits Requested Visits Authorized [id number] Closed PCP Requested Referral 08/28/2021 08/28/2022 1 1 Reason Comments Thyroid Problem Specialty Diagnoses / Procedures Referred By Contac t Referred To Contact Endocrinology / ENDOCRINOLOGY Diagnoses Multinodular goiter Procedures CONSULT TO ENDOCRINOLOGY OFFICE/OUTPATIENT [facility] 60-74 MINUTES Bonifacio Scherer MD [address] [place] [address] [facility] [address] [place] [address] Phone: [phone] Referral ID Status Reason Start Date Expiration Date V isits Requested Visits Authorized [id number] Closed PCP Requested Referral 08/15/2021 08/15/2022 1 1 Reason Comments Results Reason Comments Schedule Surgery Reason Comments Medication Follow-up Reason Comments Recheck 2 week follow up Reason Comments Radiology US Specialty Diagnoses / Procedures Referred By Contac t Referred To Contact US IMAGING Diagnoses Stage 3b chronic kidney disease (HCC) Procedures US KIDNEY/BLADDER US RETROPERITONEAL REAL TIME W/IMAGE COMPLETE Sakshi Li, YIN.STAVE SAW OPERATOR [address] [place] [address] [facility] Referral ID Status Reason Start Date Expiration Date V isits Requested Visits Authorized [id number] Closed Auto-Generate d Referral 03/02/2022 04/01/2023 1 1 Reason Comments Low Back Pain Reason Comments Reminder Call Reason Comments Blood Pressure Check Reason Comments Results Reason Comments Recheck Follow up Reason Onset Date Comments Refill Request 05/22/2022 Appointment 05/22/2022 Reason Onset Date Comments Cough 06/11/2022 Reason Comments Refill Request Reason Onset Date Comments Appointment 08/04/2022 Stress test inst ructions Reason Comments Appointment Reason Onset Date Comments Refill Request 08/18/2022 Reason Comments Insurance Authorization Alogliptin Reason Comments Orders Stress Test instruct ions Reason Comments Appointment called pt to schedul e appt - invalid number Reason Comments Refill Request Jardiance Reason Onset Date Comments Refill Request 12/03/2022 Reason Onset Date Comments Refill Request 12/11/2022 Reason Comments Physical Reason Comments Patient Request Reason Comments Lab & Test Results Reason Comments Radiology NM Specialty Diagnoses / Procedures Referred By Contac t Referred To Contact MOLECULAR & FUNCTIONAL IMAGING Diagnoses 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 (HCC) Procedures NM CARDIAC PERF STRESS/PHARM MYOCARDIAL SPECT MULTIPLE STUDIES Sakshi Li APRN.STAVE SAW OPERATOR [address] [place] [address] [facility] [address] [place] [id number] Referral ID Status Reason Start Date Expiration Date V isits Requested Visits Authorized [id number] Closed Auto-Generate d Referral 03/25/2022 04/24/2023 1 1 Reason Comments Medicaton issue/question Reason Onset Date Comments Refill Request 05/05/2023 Reason Comments Refill Request Back Pain 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 Comments 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 Specialty Diagnoses / Procedures Referred By Contac t Referred To Contact Gynecology Diagnoses Screening for cervical cancer Procedures CONSULT TO GYNECOLOGY OFFICE/OUTPATIENT [facility] 60-74 MINUTES Davian Stone PA-C [address] [place] [address] Referral ID Status Reason Start Date Expiration Date V isits Requested Visits Authorized [id number] Closed PCP Requested Referral Auto-Generated Referral 02/08/2023 02/08/2024 1 1 Reason Comments 6 Month Exam Reason Comments Insurance Authorization Reason Onset Date Comments Refill Request 08/17/2023 Reason Comments Med Management Reason Comments pharmacy consult changes Reason Onset Date Comments Refill Request 09/15/2023 Reason Comments Follow Up Reason Comments Results Reason Comments Abstract Reason Onset Date Comments Refill Request 10/25/2023 Reason Comments Speak w/Provider Reason Onset Date Comments Refill Request 11/17/2023 Reason Comments Back Pain Refill Request Reason Comments Radiology US Specialty Diagnoses / Procedures Referred By Contac t Referred To Contact US IMAGING Diagnoses Renal insufficiency CKD (chronic kidney disease) stage 4, GFR 15-29 ml/min (HCC) Procedures US KIDNEY/BLADDER US RETROPERITONEAL REAL TIME W/IMAGE COMPLETE Garrett Ventura MD [address] [place] [address] [facility] [address] Referral ID Status Reason Start Date Expiration Date V isits Requested Visits Authorized [id number] Closed Auto-Generate d Referral 09/23/2023 10/22/2024 1 1 Reason Comments Establish Care Specialty Diagnoses / Procedures Referred By Contac t Referred To Contact Cardiology Diagnoses 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 (HCC) Procedures CONSULT TO CARDIOLOGY OFFICE/OUTPATIENT NEW HIGH MDM 60 MINUTES Garrett Ventura MD [address] [place] [address] Referral ID Status Reason Start Date Expiration Date V isits Requested Visits Authorized [id number] Closed PCP Requested Referral 08/13/2023 08/12/2024 1 1 Reason Comments Radiology XR Reason Onset Date Comments Refill Request 04/26/2024 Reason Onset Date Comments Refill Request 04/27/2024 Reason Onset Date Comments Refill Request 04/28/2024 Reason Comments Pain Refill Request Reason Comments Cough With chest congestio n & SOB x 3-4 days Reason Comments Follow Up Reason Comments High Blood Sugar Reason Comments New Diabetic Foot Care Nail Fungus Derm Problem Specialty Diagnoses / Procedures Referred By Contac t Referred To Contact Podiatry Diagnoses Onychomycosis Bunion Callus Procedures CONSULT TO PODIATRY OFFICE/OUTPATIENT NEW HIGH MDM 60 MINUTES Garrett Ventura MD [address] [place] [address] Phone: tel: fax: Referral ID Status Reason Start Date Expiration Date V isits Requested Visits Authorized [id number] Closed PCP Requested Referral 08/02/2024 08/02/2025 1 1 Reason Comments Follow Up 6 month follow up Reason Comments New Pain Specialty Diagnoses / Procedures Referred By Contac t Referred To Contact Orthopedics Diagnoses Pain in both hands Trigger middle finger of right hand Procedures CONSULT TO ORTHOPAEDICS OFFICE/OUTPATIENT NEW HIGH MDM 60 MINUTES Garrett Ventura MD [address] [place] [address] Phone: tel: fax: Referral ID Status Reason Start Date Expiration Date V isits Requested Visits Authorized [id number] Closed PCP Requested Referral 08/02/2024 08/02/2025 1 1 Reason Onset Date Comments Results 10/23/2024 Reason Comments Rash Itchy elevated fluid -filled Rash developed 2 days ago, on Right breast, Right side and right side of back. Sores are not painful and are fluid filled. Reason Comments type 2 diabetes Reason Comments Patient Update Reason Onset Date Comments Refill Request 12/26/2024 Reason Comments Insulin Dependent Diabetes Mellitus Reason Onset Date Comments Refill Request 02/15/2025 Reason Onset Date Comments Refill Request 02/22/2025 Reason Comments Mouth/Lip Problem redness on outer edg es of lips, headache and lightheadedness x 2 days Reason Comments Medication Problem Test strips Care Teams (unrecognized sec tion and content) Private Secretary Relationship Specialty Start Date End Date Garrett Ventura MD [address] [place], [place] [id number] PCP - General Family Practice 04/25/12 Private Secretary Relationship Specialty Start Date End Date Garrett Ventura MD [address] [place] [address] PCP - General Family Practice 04/25/12 Private Secretary Relationship Specialty Start Date End Date Garrett Ventura MD [address] [place], [place] [id number] PCP - General Family Practice 04/25/12 Private Secretary Relationship Specialty Start Date End Date Garrett Ventura MD [address] [place] [address] PCP - General Family Practice 04/25/12 Private Secretary Relationship Specialty Start Date End Date Garrett Ventura MD [address] [place], [place] [address] PCP - General Family Practice 04/25/12 Private Secretary Relationship Specialty Start Date End Date Garrett Ventura MD [address] [place] [address] PCP - General Family Practice 04/25/12 Private Secretary Relationship Specialty Start Date End Date Garrett Ventura MD [address] [place] [address] PCP - General Family Practice 04/25/12 Private Secretary Relationship Specialty Start Date End Date Garrett Ventura MD [address] [place] [address] PCP - General Family Practice 04/25/12 Private Secretary Relationship Specialty Start Date End Date Garrett Ventura MD [address] [place] [address] PCP - General Family Practice 04/25/12 Private Secretary Relationship Specialty Start Date End Date Garrett Ventura MD [address] [place] [address] PCP - General Family Practice 04/25/12 Private Secretary Relationship Specialty Start Date End Date Garrett Ventura MD [address] [place] [address] PCP - General Family Practice 04/25/12 Private Secretary Relationship Specialty Start Date End Date Garrett Ventura MD [address] [place] [address] PCP - General Family Practice 04/25/12 Private Secretary Relationship Specialty Start Date End Date Garrett Ventura MD [address] [place] [address] PCP - General Family Medicine 04/25/12 Private Secretary Relationship Specialty Start Date End Date Garrett Ventura MD [address] [place] [address] PCP - General Family Medicine 04/25/12 Private Secretary Relationship Specialty Start Date End Date Garrett Ventura MD [address] [place] [address] PCP - General Family Medicine 04/25/12 Private Secretary Relationship Specialty Start Date End Date Garrett Ventura MD [address] [place] [address] PCP - General Family Medicine 04/25/12 Private Secretary Relationship Specialty Start Date End Date Garrett Ventura MD [address] [place] [address] PCP - General Family Medicine 04/25/12 Private Secretary Relationship Specialty Start Date End Date Garrett Vnetura MD [address] [place] [address] PCP - General Family Medicine 04/25/12 Private Secretary Relationship Specialty Start Date End Date Garrett Ventura MD [address] [place] [address] PCP - General Family Medicine 04/25/12 Private Secretary Relationship Specialty Start Date End Date Garrett Ventura MD [address] [place] [address] PCP - General Family Medicine 04/25/12 Private Secretary Relationship Specialty Start Date End Date Garrett Ventura MD [address] [place] [address] PCP - General Family Medicine 04/25/12 Private Secretary Relationship Specialty Start Date End Date Garrett Ventura MD [address] [place] [address] PCP - General Family Medicine 04/25/12 Private Secretary Relationship Specialty Start Date End Date Garrett Ventura MD [address] [place] [address] PCP - General Family Medicine 04/25/12 Private Secretary Relationship Specialty Start Date End Date Garrett Ventura MD [address] [place] [address] PCP - General Family Medicine 04/25/12 Private Secretary Relationship Specialty Start Date End Date Garrett Ventura MD [address] [place] [address] PCP - General Family Medicine 04/25/12 Private Secretary Relationship Specialty Start Date End Date Garrett Ventura MD [address] [place] [address] PCP - General Family Medicine 04/25/12 Private Secretary Relationship Specialty Start Date End Date Garrett Ventura MD [address] [place] [address] PCP - General Family Medicine 04/25/12 Private Secretary Relationship Specialty Start Date End Date Garrett Ventura MD [address] [place] [address] PCP - General Family Medicine 04/25/12 Private Secretary Relationship Specialty Start Date End Date Garrett Ventura MD [address] [place] [address] PCP - General Family Medicine 04/25/12 Private Secretary Relationship Specialty Start Date End Date Garrett Ventura MD [address] [place] [address] PCP - General Family Medicine 04/25/12 Private Secretary Relationship Specialty Start Date End Date Garrett Ventura MD [address] [place] [address] PCP - General Family Medicine 04/25/12 Private Secretary Relationship Specialty Start Date End Date Garrett Ventura MD [address] [place] [address] PCP - General Family Medicine 04/25/12 Private Secretary Relationship Specialty Start Date End Date Garrett Ventura MD [address] [place] [address] PCP - General Family Medicine 04/25/12 Private Secretary Relationship Specialty Start Date End Date Garrett Ventura MD [address] [place] [address] PCP - General Family Medicine 04/25/12 Private Secretary Relationship Specialty Start Date End Date Garrett Ventura MD [address] [place] [address] PCP - General Family Medicine 04/25/12 Private Secretary Relationship Specialty Start Date End Date Garrett Ventura MD [address] [place] [address] PCP - General Family Medicine 04/25/12 Private Secretary Relationship Specialty Start Date End Date Garrett Ventura MD [address] [place] [address] PCP - General Family Medicine 04/25/12 Private Secretary Relationship Specialty Start Date End Date Garrett Ventura MD [address] [place] [address] PCP - General Family Medicine 04/25/12 Private Secretary Relationship Specialty Start Date End Date Garrett Ventura MD [address] [place] [address] PCP - General Family Medicine 04/25/12 Private Secretary Relationship Specialty Start Date End Date Garrett Ventura MD [address] [place] [address] PCP - General Family Medicine 04/25/12 Private Secretary Relationship Specialty Start Date End Date Garrett Ventura MD [address] [place] [address] PCP - General Family Medicine 04/25/12 Private Secretary Relationship Specialty Start Date End Date Garrett Ventura MD [address] [place] [address] PCP - General Family Medicine 04/25/12 Private Secretary Relationship Specialty Start Date End Date Garrett Ventura MD [address] [place] [address] PCP - General Family Medicine 04/25/12 Private Secretary Relationship Specialty Start Date End Date Garrett Ventura MD [address] [place] [address] PCP - General Family Medicine 04/25/12 Private Secretary Relationship Specialty Start Date End Date Garrett Ventura MD [address] [place] [address] PCP - General Family Medicine 04/25/12 Private Secretary Relationship Specialty Start Date End Date Garrett Ventura MD [address] [place] [address] PCP - General Family Medicine 04/25/12 Private Secretary Relationship Specialty Start Date End Date Garrett Ventura MD [address] [place] [address] PCP - General Family Medicine 04/25/12 Private Secretary Relationship Specialty Start Date End Date Garrett Ventura MD [address] [place] [address] PCP - General Family Medicine 04/25/12 Private Secretary Relationship Specialty Start Date End Date Garrett Ventura MD [address] [place], [place] 400951 PCP - General Family Medicine 04/25/12 Private Secretary Relationship Specialty Start Date End Date Garrett Ventura MD [address] [place], [place] [address]81 PCP - General Family Medicine 04/25/12 Private Secretary Relationship Specialty Start Date End Date Garrett Ventura MD [address] [place] [address] PCP - General Family Medicine 04/25/12 Private Secretary Relationship Specialty Start Date End Date Garrett Ventura MD [address] [place] [address] PCP - General Family Medicine 04/25/12 Private Secretary Relationship Specialty Start Date End Date Garrett Ventura MD [address] [place] [address] PCP - General Family Medicine 04/25/12 Private Secretary Relationship Specialty Start Date End Date Garrett Ventura MD [address] [place] [address] PCP - General Family Medicine 04/25/12 Private Secretary Relationship Specialty Start Date End Date Garrett Ventura MD [address] [place], [place] 8[address]171 PCP - General Family Medicine 04/25/12 Private Secretary Relationship Specialty Start Date End Date Garrett Ventura MD [address] [place], [place] 8745[address] PCP - General Family Medicine 04/25/12 Private Secretary Relationship Specialty Start Date End Date Garrett Ventura MD [address] [place], [place] 129691 PCP - General Family Medicine 04/25/12 Private Secretary Relationship Specialty Start Date End Date Garrett Ventura MD [address] [place], [place] 328681 PCP - General Family Medicine 04/25/12 Private Secretary Relationship Specialty Start Date End Date Garrett Ventura MD [address] [place], [place] 953441 PCP - General Family Medicine 04/25/12 Sakshi Li, OXYGEN THERAPIST.STAVE SAW OPERATOR [address] [place] [address] [facility] 05/29/24 Rabia Lewis, OXYGEN THERAPIST.STAVE SAW OPERATOR [address] [place] [address] [facility] 05/29/24 Private Secretary Relationship Specialty Start Date End Date Garrett Ventura MD [address] [place] [address] PCP - General Family Medicine 04/25/12 Sakshi Li, OXYGEN THERAPIST.STAVE SAW OPERATOR [address] [place] [address] [facility] 05/29/24 Rabia Lewis, OXYGEN THERAPIST.STAVE SAW OPERATOR [address] [place] [address] [facility] 05/29/24 Private Secretary Relationship Specialty Start Date End Date Garrett Ventura MD [address] [place] [address] PCP - General Family Medicine 04/25/12 Sakshi Li APRN.STAVE SAW OPERATOR [address] [facility] [place] [address] [facility] 05/29/24 Rabia Lewis APRN.STAVE SAW OPERATOR [address] [facility] [place] [address] [facility] 05/29/24 Private Secretary Relationship Specialty Start Date End Date Garrett Ventura MD [address] [facility] [place] [address] PCP - General Family Medicine 04/25/12 Sakshi Li APRN.STAVE SAW OPERATOR [address] [facility] [place] [address] [facility] 05/29/24 Rabia Lewis OXYGEN THERAPIST.STAVE SAW OPERATOR [address] [place] [address] [facility] 05/29/24 Private Secretary Relationship Specialty Start Date End Date Garrett Ventura MD [address] [facility] [place] [address] PCP - General Family Medicine 04/25/12 Sakshi Li APRN.STAVE SAW OPERATOR [address] [place] [address] [facility] 05/29/24 Rabia Lewis APRN.STAVE SAW OPERATOR [address] [place] [address] [facility] Family [facility] 05/29/24 Private Secretary Relationship Specialty Start Date End Date Garrett Ventura MD [address] [place] [address] PCP - General Family Medicine 04/25/12 Sakshi Li APRN.STAVE SAW OPERATOR [address] [facility] [place] [address] [facility] 05/29/24 Rabia Lewis APRN.STAVE SAW OPERATOR [address] [place] [address] [facility] 05/29/24 Private Secretary Relationship Specialty Start Date End Date Garrett Ventura MD [address] [place] [address] PCP - General Family Medicine 04/25/12 Sakshi Li APRN.STAVE SAW OPERATOR [address] [place] [address] [facility] 05/29/24 Rabia Lewis APRN.STAVE SAW OPERATOR [address] [place] [address] [facility] Medicine 05/29/24 Private Secretary Relationship Specialty Start Date End Date Garrett Ventura MD [address] [place] [address] PCP - General Family Medicine 04/25/12 Sakshi Li APRN.STAVE SAW OPERATOR [address] [place] [address] [facility] Family [facility] 05/29/24 Rabia Lewis APRN.STAVE SAW OPERATOR [address] [place] [address] [facility] Private Secretary Relationship Specialty Start Date End Date Garrett Ventura MD [address] [place] [address] PCP - General Family Medicine 04/25/12 Sakshi Li APRN.STAVE SAW OPERATOR [address] [facility] [place] [address] [facility]/24 Rabia Lewis OXYGEN THERAPIST.STAVE SAW OPERATOR [address] [place] [address] [facility] 05/29/24 Private Secretary Relationship Specialty Start Date End Date Garrett Ventura MD [address] [place] [address] PCP - General Family Medicine 04/25/12 Sakshi Li APRN.STAVE SAW OPERATOR [address] [facility] [place] [address] [facility]/24 Rabia Lewis OXYGEN THERAPIST.STAVE SAW OPERATOR [address] [place] [address] [facility]/24 Private Secretary Relationship Specialty Start Date End Date Garrett Ventura MD [address] [place] [address] PCP - General Family Medicine 04/25/12 Sakshi Li OXYGEN THERAPIST.STAVE SAW OPERATOR [address] [place] [address] [facility] 05/29/24 Rabia Lewis OXYGEN THERAPIST.STAVE SAW OPERATOR [address] [facility] [place] [address] [facility] 05/29/24 Private Secretary Relationship Specialty Start Date End Date Garrett Ventura MD [address] [facility] [place] [address] PCP - General Family Medicine 04/25/12 Sakshi Li OXYGEN THERAPIST.STAVE SAW OPERATOR [address] [facility] [place] [address] [facility] 05/29/24 Rabia Lewis OXYGEN THERAPIST.STAVE SAW OPERATOR [address] [facility] [place] [address] [facility] 05/29/24 Private Secretary Relationship Specialty Start Date End Date Garrett Ventura MD [address] [facility] [place] [address] PCP - General Family Medicine 04/25/12 Sakshi Li OXYGEN THERAPIST.STAVE SAW OPERATOR [address] [facility] [place] [address] [facility] 05/[facility]/24 Rabia Lewis OXYGEN THERAPIST.STAVE SAW OPERATOR [address] [facility] [place] [address] [facility] 05/29/24 Private Secretary Relationship Specialty Start Date End Date Garrett Ventura MD [address] [place] [address] PCP - General Family Medicine 04/25/12 Sakshi Li APRN.STAVE SAW OPERATOR [address] [place] [address] [facility] 05/29/24 Rabia Lewis APRN.STAVE SAW OPERATOR [address] [place] [address] [facility] 05/29/24 Private Secretary Relationship Specialty Start Date End Date Garrett Ventura MD [address] [place] [address] PCP - General Family Medicine 04/25/12 Sakshi Li APRN.STAVE SAW OPERATOR [address] [place] [address] [facility] 05/29/24 Rabia Lewis APRN.STAVE SAW OPERATOR [address] [place] [address] [facility]/24 Private Secretary Relationship Specialty Start Date End Date Garrett Ventura MD [address] [place] [address] PCP - General Family Medicine 04/25/12 Sakshi Li APRN.STAVE SAW OPERATOR [address] [place] [address] [facility] 05/29/24 Rabia Lewis APRN.STAVE SAW OPERATOR [address] [place] [address] [facility] Family [facility] 05/29/24 Private Secretary Relationship Specialty Start Date End Date Garrett Ventura MD [address] [place] [address] PCP - General Family Medicine 04/25/12 Sakshi Li, OXYGEN THERAPIST.STAVE SAW OPERATOR [address] [place] [address] [facility] 05/29/24 Rabia Lewis OXYGEN THERAPIST.STAVE SAW OPERATOR [address] [place] [address] [facility]/24 Private Secretary Relationship Specialty Start Date End Date Garrett Ventura MD [address] [place] [address] PCP - General Family Medicine 04/25/12 Sakshi Li, OXYGEN THERAPIST.STAVE SAW OPERATOR [address] [place] [address] [facility] 05/29/24 Rabia Lewis OXYGEN THERAPIST.STAVE SAW OPERATOR [address] [place] [address] [facility]/24 Private Secretary Relationship Specialty Start Date End Date Garrett Ventura MD [address] [place] [address] PCP - General Family Medicine 04/25/12 Sakshi Li, OXYGEN THERAPIST.STAVE SAW OPERATOR [address] [place] [address] [facility] Family [facility] 05/29/24 Rabia Lewis APRN.STAVE SAW OPERATOR [address] [place] [address] [facility] 05/29/24 Private Secretary Relationship Specialty Start Date End Date Garrett Ventura MD [address] [place] [address] PCP - General Family Medicine 04/25/12 Sakshi Li APRN.STAVE SAW OPERATOR [address] [place] [address] [facility] 05/29/24 Rabia Lewis OXYGEN THERAPIST.STAVE SAW OPERATOR [address] [place] [address] [facility] 05/29/24 Private Secretary Relationship Specialty Start Date End Date Garrett Ventura MD [address] [place] [address] PCP - General Family Medicine 04/25/12 Sakshi Li OXYGEN THERAPIST.STAVE SAW OPERATOR [address] [place] [address] [facility] Medicine 05/29/24 Rabia Lewis OXYGEN THERAPIST.STAVE SAW OPERATOR [address] [place] [address] [facility] Medicine 05/29/24 Private Secretary Relationship Specialty Start Date End Date Garrett Ventura MD [address] [place], [place] 282736 [phone] PCP - General Family Medicine 04/25/12 Sakshi Li APRN.STAVE SAW OPERATOR [address] [address] [place] [address] [facility] 05/29/24 Rabia Lewis APRN.STAVE SAW OPERATOR [address] [place] [address] [facility] 05/29/24 Private Secretary Relationship Specialty Start Date End Date Garrett Ventura MD [address] [facility] [place] [address] PCP - General Family Medicine 04/25/12 Sakshi Li APRN.STAVE SAW OPERATOR [address] [facility] [place] [address] [facility] 05/29/24 Rabia Lewis OXYGEN THERAPIST.STAVE SAW OPERATOR [address] [place] [address] [facility] 05/29/24 Private Secretary Relationship Specialty Start Date End Date Garrett Ventura MD [address] [facility] [place] [address] PCP - General Family Medicine 04/25/12 Sakshi Li OXYGEN THERAPIST.STAVE SAW OPERATOR [address] [facility] [place] [address] [facility] 05/29/24 Rbaia Lewis APRN.STAVE SAW OPERATOR [address] [facility] [place] [address] [facility] 05/29/24 Private Secretary Relationship Specialty Start Date End Date Garrett Ventura MD [address] [place], [place] 428951 PCP - General Family Medicine 04/25/12 Sakshi Li APRN.STAVE SAW OPERATOR [address] [place], [place] 458[address] [facility] 05/29/24 Rabia Lewis APRN.STAVE SAW OPERATOR [address] [place] [address] [facility] 05/29/24 FOR RECORDS PERTAINING TO PATIENTS WHO ARE OR HAVE BEEN ENROLLED IN A CHEMICAL DEPENDENCY/SUBSTANCEABUSE PROGRAM, SOME INFORMATION MAY BE OMITTED. This clinical summary was aggregated from multiple sources. Caution should be exercised in using it in the provision of clinical care. This summary normalizes information from multiple sources, and as a consequence, information in this document may materially change the coding, format and clinical context of patient data. In addition, data may be omitted in some cases. CLINICAL DECISIONS SHOULD BE BASED ON THE PRIMARY CLINICAL RECORDS. [employer] provides no warranty or guarantee of the accuracy or completeness of information in this document.
[2025-05-11 20:24] LABS: Hematocrit 39.9 % (37-47); Hemoglobin 13.6 g/dL (12.0-15.0); Immature Granulocytes Count 0.040 X10^3/uL (0.0-0.0); Mean Corp Hgb Conc 34.1 g/dL (32-36); Mean Corpuscular Volume 82.3 fL (81-99); Mean Platelet Vol. 9.3 fl (6.2-12.0); NRBC Flagged by Analyzer 0 % (0-5); Platelet Count 258 K/mm3 (150-450); RBC Distribution Width CV 14.9 % (11.6-14.6); RBC Distribution Width SD 43.8 fl (35.1-43.9); Red Blood Count 4.85 M/mm3 (4.2-5.4); White Blood Count 6.9 K/mm3 (4.4-11.0)
[2025-05-11 20:46] LABS: Anion Gap 14 (5-15); BUN 25 mg/dL (4-19); BUN/Creat Ratio 22.3 RATIO (10-20); Calcium,Total 11.0 mg/dL (7.6-11.0); Carbon Dioxide 22.7 mmol/L (21.0-32.0); Chloride 96 mmol/L (98-108); Estimated Creatinine Clearance 43.16 ml/min (50-250); Glucose 326 mg/dL (70-99); Potassium 4.3 mmol/L (3.3-5.1)
[2025-05-11 21:23] VITALS: BP 124/78; PULSE 73; RESP 16; O2SAT 93
[2025-05-11 21:36] LABS: Mucous, Urine 0 SEEN /hpf (<or=2+)
[2025-05-11 22:11] LABS: Color, Urine Straw (Yellow); Glucose, Dipstick 1000 mg/dl (Normal); Ketone-Dipstick Negative (Negative); Leukocyte Esterase-Dipstick 25 /ul (Negative); Nitrite-Dipstick Negative (Negative); Occult Blood-Urine 10 /ul (Negative); Protein-Dipstick Negative (Negative); Specific Gravity, Urine 1.015 (1.002-1.030); Urine Bilirubin Dipstick Negative (Negative)
[2025-05-11 22:14] VITALS: BP 104/68; PULSE 70; O2SAT 92
[2025-05-11 22:42] LABS: Red Blood Cells-Urine 0-5 SEEN /hpf (0-5); Squamous Epithelial Cells - UA 0-5 SEEN /hpf (5-10)
[2025-05-11 23:23] VITALS: BP 104/68; PULSE 70; RESP 16; TEMP 36.7; O2SAT 92
== END 2025-05-11 23:25 | disposition home or self-care (01) ==
PROVIDERS: Emergency Provider Emergency Medicine; PCP Family Medicine; Visit Provider Emergency Medicine
DX: E11.65 Type 2 diabetes mellitus with hyperglycemia (principal); E11.9 Type 2 diabetes mellitus without complications; H53.8 Other visual disturbances; Z87.891 Personal history of nicotine dependence; I10 Essential (primary) hypertension; E78.5 Hyperlipidemia, unspecified
CPT/HCPCS: 80048; 81001; 82962; 85025; 96360; 96361; 99284; A4216